=== PATIENT | female | born 1950 | race Caucasian/White ===

== ENCOUNTER → 2017-07-15 16:54 | Outpatient (CLI) | payer OTHER, SELFPAY ==
[2017-07-15 18:13] LABS: Absolute Lymphocyte Count 2.54 X10^3/ul (0.83-4.51); Absolute Neutrophil Count 3.5 X10^3/uL (2.0-7.7); Basophil# 0.04 X10^3/uL; Basophil% 0.6 % (0-1); Eosinophil# 0.17 X10^3/uL; Eosinophils% 2.4 % (0-5); Hematocrit 45.9 % (37-47); Hemoglobin 15.1 g/dl (12.0-15.0); Lymphocyte # 2.54 X10^3/ul (4.0); Lymphocyte % 35.7 % (19-41); Mean Corp Hgb Conc 32.9 g/gl (32-36); Mean Corpuscular Hgb 30.3 pg (27.0-32.0); Mean Corpuscular Volume 92.2 fL (81-99); Mean Platelet Vol. 9.7 fl (6.2-12.0); Monocyte# 0.82 X10^3/uL; Monocyte% 11.5 % (0-10); Neutrophil # 3.53 X10^3/uL (2.7-7.7); Neutrophil % 49.5 % (47-70); Platelet Count 295 K/mm3 (150-450); RBC Distribution Width CV 13.1 % (11.6-14.6); RBC Distribution Width SD 43.3 fl (35.1-43.9); Red Blood Count 4.98 M/mm3 (4.2-5.4); White Blood Count 7.1 K/mm3 (4.4-11.0)
[2017-07-15 18:19] LABS: POSITIVE COUNT NO; POSITIVE DIFFERENTIAL NO; POSITIVE MORPHOLOGY NO
[2017-07-15 18:30] LABS: Erythrocyte Sedimentation Rate 44 mm/hr (0-30)
[2017-07-15 19:53] LABS: ALB/GLOB Ratio 0.8 RATIO (0.9-2.4); AST(SGOT) 21 U/L (15-37); Alanine Aminotransfer ALT/SGPT 32 U/L (13-56); Albumin, Serum 3.4 g/dL (3.2-5.0); Alkaline Phosphatase 82 U/L (45-117); Anion Gap 10 (5-15); BUN 17 mg/dL (7-18); BUN/Creat Ratio 22.6 RATIO (10-20); Calcium,Total 8.9 mg/dL (8.5-10.1); Chloride 105 mmol/L (98-107); Creatinine, Serum 0.75 mg/dL (0.55-1.02); EST Glomerular Filtration Rate 82 mL/min (>60); Est Glom Filt Rate - Afr Amer 99 mL/min (>60); Globulin 4.3 g/dL (2.2-4.2); Glucose 70 mg/dL (74-106); Potassium 3.7 mmol/L (3.5-5.1); Protein, Total 7.7 g/dL (6.4-8.2); Sodium Level 141 mmol/L (136-145); Thyroid Stim Hormone (TSH) 5.05 uIU/mL (0.358-3.74)
[2017-07-16 08:14] LABS: Vitamin B12 293 pg/mL (211-911); Vitamin D,25 Hydroxy 22.5 ng/mL (29.95-100.01)
[2017-07-16 09:38] LABS: T4 Free Direct 0.96 ng/dL (0.76-1.46)
== END ==
PROVIDERS: Family Provider Family Medicine; PCP Family Medicine; Visit Provider Family Medicine
DX: R53.83 Other fatigue (principal)
CPT/HCPCS: 36415; 80053; 82306; 82607; 84439; 84443; 85025; 85652

== ENCOUNTER → 2017-08-29 16:21 | Outpatient (CLI) | payer OTHER, SELFPAY ==
[2017-08-29 17:43] LABS: T4 Free Direct 1.42 ng/dL (0.76-1.46); Thyroid Stim Hormone (TSH) 1.06 uIU/mL (0.358-3.74)
[2017-08-29 17:47] LABS: Vitamin B12 > 2000 pg/mL (211-911); Vitamin D,25 Hydroxy 35.4 ng/mL (29.95-100.01)
== END ==
LOC: MFPLAB 16:22
PROVIDERS: Family Provider Family Medicine; PCP Family Medicine; Visit Provider Family Medicine
DX: E53.8 Deficiency of other specified B group vitamins (principal); E55.9 Vitamin D deficiency, unspecified; E03.9 Hypothyroidism, unspecified
CPT/HCPCS: 36415; 82306; 82607; 84439; 84443

== ENCOUNTER → 2017-10-03 10:23 | Outpatient (CLI) | payer OTHER, SELFPAY ==
[2017-10-03 12:43] LABS: Anion Gap 5 (5-15); BUN 17 mg/dL (7-18); BUN/Creat Ratio 21.7 RATIO (10-20); Calcium,Total 9.1 mg/dL (8.5-10.1); Chloride 107 mmol/L (98-107); Creatinine, Serum 0.78 mg/dL (0.55-1.02); EST Glomerular Filtration Rate 78 mL/min (>60); Est Glom Filt Rate - Afr Amer 95 mL/min (>60); Glucose 68 mg/dL (74-106); Potassium 3.8 mmol/L (3.5-5.1); Sodium Level 141 mmol/L (136-145)
== END ==
PROVIDERS: Family Provider Family Medicine; PCP Family Medicine; Visit Provider Family Medicine
DX: R60.9 Edema, unspecified (principal)
CPT/HCPCS: 36415; 80048

== ENCOUNTER → 2017-10-17 07:23 | Outpatient (CLI) | payer OTHER, SELFPAY ==
--- NOTE | 2017-10-17 07:35 | ECHOD_ITS ---
Reason For Study: EDEMA Procedure This was a 2D Doppler, Color Flow transthoracic echocardiogram. Contrast injection was performed. Blood pressure called to RN at Dr Pinon's office. Exam performed in department. Left Ventricle Normal LV size. Left ventricular systolic function is normal. The estimated ejection fraction is 60 %. Transmitral diastolic flow velocities suggest mild (stage 1) diastolic dysfunction (reversed pattern). No regional wall motion abnormalities noted. Right Ventricle Normal RV size. Normal systolic function. Tricuspid Valve Normal tricuspid valve. Mild tricuspid valve insufficiency. Pulmonary artery systolic pressure is 23 mmHg. Aortic Valve Normal aortic valve. Pulmonic Valve Normal pulmonic valve. Great Vessels Normal aortic root. The pulmonary artery is normal size. Normal inferior vena cava. Pericardium/Pleural No pericardial effusion. Medication 22 gauge I.V. with prn adaptor inserted into left arm. Diluted definity 3ml given slow IV push to enhance endocardial definition. MMode/2D Measurements & Calculations LVIDd: 4.3 cm IVSd: 0.87 cm LVOT diam: 2.0 cm LVIDs: 3.0 cm LVPWd: 1.1 cm LVOT area: 3.0 cm2 RVDd: 3.3 cm FS: 30.1 % Ao root diam: 3.1 cm LAV(MOD-bp): 45.2 ml EDV(MOD-sp4): 91.2 ml LAV(MOD-bp) Indexed: 20.8 ml/m2 ESV(MOD-sp4): 35.6 ml LAV(MOD-sp2): 45.5 ml EF(MOD-sp4): 61.0 % LAV(MOD-sp4): 42.0 ml EDV(MOD-sp2): 78.3 ml SV(MOD-sp4): 55.7 ml SV(MOD-sp2): 57.2 ml EF(MOD-sp2): 73.0 % LA A4 area: 16.3 cm2 RA A4 area: 9.6 cm2 Time Measurements MV dec time: 0.22 sec Doppler Measurements & Calculations MV E max shyam: 83.0 cm/sec Lat Peak E' Shyam: 6.5 cm/sec Med Peak E' Shyam: 5.4 cm/sec MV A max shyam: 121.8 cm/sec E/E' lat: 12.7 E/E' med: 15.3 MV E/A: 0.68 MV V2 max: 127.3 cm/sec Ao V2 max: 122.3 cm/sec LV V1 max: 109.0 cm/sec MV max P.5 mmHg Ao max P.0 mmHg LV V1 max P.8 mmHg MV V2 mean: 63.9 cm/sec Ao V2 mean: 90.9 cm/sec LV V1 mean P.9 mmHg MV mean P.0 mmHg Ao mean P.6 mmHg LV V1 mean: 81.1 cm/sec MV V2 VTI: 29.8 cm Ao V2 VTI: 25.2 cm LV V1 VTI: 24.0 cm MVA(VTI): 2.5 cm2 THADDEUS(I,D): 2.9 cm2 THADDEUS(V,D): 2.7 cm2 SV(LVOT): 73.0 ml PA V2 max: 79.7 cm/sec PI end-d shyam: 113.8 cm/sec TR max shyam: 226.6 cm/sec TR max P.5 mmHg Interpretation Summary Normal LV size. Left ventricular systolic function is normal. The estimated ejection fraction is 60 %. Transmitral diastolic flow velocities suggest mild (stage 1) diastolic dysfunction (reversed pattern). Contrast injection was performed. Ordering Physician: Reg Pinon Referring Physician: JULI ROSAS Performed By: Jyothi Prakash RDCS, RVT
== END ==
PROVIDERS: Family Provider Family Medicine; PCP Family Medicine; Visit Provider Family Medicine
DX: R60.9 Edema, unspecified (principal)
CPT/HCPCS: 93306; Q9957; A4216; C8929

== ENCOUNTER → 2017-11-10 16:48 | Outpatient (CLI) | payer OTHER, MEDICARE, SELFPAY ==
--- NOTE | 2017-11-10 17:00 | RAD_ITS ---
STUDY: X-RAY - RIGHT ANKLE REASON FOR EXAM: Female, 66 years old. NO KNOWN RECENT INJURY. PAIN IN BOTH RIGHT FOOT AND RIGHT ANKLE. HX OF A RIGHT ANKLE FX WITH SURGERY 25 YRS AGO WITH PLATES AND SCREWS, THAN AGAIN 15 YRS AGO TO REMOVE PLATES AND A FEW SCREWS. SHE STATES ONE SCREW REMAINS. TECHNIQUE: 3 view(s) of the ankle. COMPARISON: None. FINDINGS: There is a screw in the distal fibular shaft. There is degenerative joint disease of the tibiotalar, subtalar, talonavicular, naviculocuneiform, calcaneocuboid joints. There are tiny plantar and posterior calcaneal spurs. There is diffuse osteopenia. RAD/Ankle min 3 Views IMPRESSION: Degenerative joint disease. Electronically Signed: Alice Cazares MD at 14:00 EDT , Service support ,
--- NOTE | 2017-11-10 17:00 | RAD_ITS ---
STUDY: X-RAY - RIGHT FOOT CLINICAL: Female, 66 years old. NO KNOWN RECENT INJURY. PAIN IN BOTH RIGHT FOOT AND RIGHT ANKLE. HX OF A RIGHT ANKLE FX WITH SURGERY 25 YRS AGO WITH PLATES AND SCREWS, THAN AGAIN 15 YRS AGO TO REMOVE PLATES AND A FEW SCREWS. SHE STATES ONE SCREW REMAINS. TECHNIQUE: 5 view(s) of the foot. COMPARISON: None. FINDINGS: There is a screw in the distal fibula. There is degenerative arthrosis of the tibiotalar, subtalar, talonavicular, naviculocuneiform calcaneocuboid joints. There is diffuse osteopenia. RAD/Foot min 3 Views IMPRESSION: Degenerative joint disease. Electronically Signed: Alice Cazares MD at 14:00 EDT , Service support ,
== END ==
PROVIDERS: Family Provider Family Medicine; PCP Family Medicine; Visit Provider Family Medicine
DX: M25.571 Pain in right ankle and joints of right foot (principal); M79.671 Pain in right foot
CPT/HCPCS: 73610; 73630

== ENCOUNTER → 2018-09-29 10:14 | Outpatient (CLI) | payer OTHER, MEDICARE, SELFPAY ==
[2018-09-29 13:01] LABS: Anion Gap 9 (5-15); BUN 14 mg/dL (7-18); Calcium,Total 9.3 mg/dL (8.5-10.1); Chloride 106 mmol/L (98-107); Cholesterol 177 mg/dL (200); Creatinine, Serum 0.78 mg/dL (0.55-1.02); EST Glomerular Filtration Rate 79 mL/min (>60); Est Glom Filt Rate - Afr Amer 95 mL/min (>60); Glucose 82 mg/dL (74-106); High Density Lipoprotein 42 mg/dL; Sodium Level 142 mmol/L (136-145); Thyroid Stim Hormone (TSH) 0.64 uIU/mL (0.358-3.74); Triglycerides 153 mg/dL; Very Low Density Lipoprotein 31 mg/dL (5-40)
== END ==
PROVIDERS: Family Provider Family Medicine; PCP Family Medicine; Visit Provider Family Medicine
DX: E03.9 Hypothyroidism, unspecified (principal); Z13.220 Encounter for screening for lipoid disorders; Z13.1 Encounter for screening for diabetes mellitus
CPT/HCPCS: 36415; 80048; 80061; 84443

== ENCOUNTER → 2019-04-03 10:18 | Outpatient (CLI) | payer OTHER, SELFPAY ==
[2019-04-03 11:13] LABS: Anion Gap 5 (5-15); BUN 17 mg/dL (7-18); BUN/Creat Ratio 18.2 RATIO (10-20); Calcium,Total 9.5 mg/dL (8.5-10.1); Chloride 107 mmol/L (98-107); Cholesterol 216 mg/dL (200); Creatinine, Serum 0.94 mg/dL (0.55-1.02); EST Glomerular Filtration Rate 63 mL/min (>60); Est Glom Filt Rate - Afr Amer 77 mL/min (>60); Glucose 92 mg/dL (74-106); High Density Lipoprotein 58 mg/dL; Potassium 4.2 mmol/L (3.5-5.1); Sodium Level 141 mmol/L (136-145); Thyroid Stim Hormone (TSH) 1.75 uIU/mL (0.358-3.74); Triglycerides 201 mg/dL; Very Low Density Lipoprotein 40 mg/dL (5-40)
[2019-04-05 09:04] LABS: Vitamin B12 284 pg/mL (211-911); Vitamin D,25 Hydroxy 19.8 ng/mL (29.95-100.01)
== END ==
PROVIDERS: Family Provider Family Medicine; PCP Family Medicine; Referring Provider Family Medicine; Visit Provider Family Medicine
DX: I10 Essential (primary) hypertension (principal); E03.9 Hypothyroidism, unspecified; E53.8 Deficiency of other specified B group vitamins; E55.9 Vitamin D deficiency, unspecified
CPT/HCPCS: 36415; 80048; 80061; 82306; 82607; 84443

== ENCOUNTER → 2019-10-16 | Outpatient (CLI) | payer OTHER, SELFPAY ==
[2019-10-18 08:58] LABS: Vitamin B12 > 2000 pg/mL (211-911); Vitamin D,25 Hydroxy 91.3 ng/mL
== END | disposition home or self-care (01) ==
PROVIDERS: PCP Family Medicine; Referring Provider Family Medicine; Visit Provider Family Medicine
DX: E55.9 Vitamin D deficiency, unspecified (principal); E53.8 Deficiency of other specified B group vitamins
CPT/HCPCS: 36415; 82306; 82607

== ENCOUNTER → 2020-04-05 16:35 | Outpatient (CLI) | payer OTHER, SELFPAY ==
[2020-04-05 18:35] LABS: Vitamin B12 596 pg/mL (211-911); Vitamin D,25 Hydroxy 36.2 ng/mL
[2020-04-05 18:44] LABS: ALB/GLOB Ratio 0.9 RATIO (0.9-2.4); AST(SGOT) 12 U/L (15-37); Alanine Aminotransfer ALT/SGPT 29 U/L (13-56); Albumin, Serum 3.5 g/dL (3.2-5.0); Alkaline Phosphatase 68 U/L (45-117); Anion Gap 4 (5-15); BUN 21 mg/dL (7-18); BUN/Creat Ratio 23.7 RATIO (10-20); Calcium,Total 9.6 mg/dL (8.5-10.1); Chloride 106 mmol/L (98-107); Cholesterol 215 mg/dL (200); Creatinine, Serum 0.88 mg/dL (0.55-1.02); EST Glomerular Filtration Rate 67 mL/min (>60); Est Glom Filt Rate - Afr Amer 82 mL/min (>60); Globulin 4.1 g/dL (2.2-4.2); Glucose 68 mg/dL (74-106); High Density Lipoprotein 50 mg/dL; Potassium 3.7 mmol/L (3.5-5.1); Protein, Total 7.6 g/dL (6.4-8.2); Sodium Level 140 mmol/L (136-145); Thyroid Stim Hormone (TSH) 2.55 uIU/mL (0.358-3.74); Triglycerides 228 mg/dL; Very Low Density Lipoprotein 46 mg/dL (5-40)
== END ==
PROVIDERS: PCP Family Medicine; Visit Provider Family Medicine
DX: E03.9 Hypothyroidism, unspecified (principal); I10 Essential (primary) hypertension; E55.9 Vitamin D deficiency, unspecified; E53.8 Deficiency of other specified B group vitamins
CPT/HCPCS: 36415; 80053; 80061; 82306; 82607; 84443

== ENCOUNTER → 2021-01-02 14:53 | Outpatient (CLI) | payer OTHER, SELFPAY | PROVIDERS: PCP Family Medicine; Referring Provider Family Medicine; Visit Provider Family Medicine | DX: R69 Illness, unspecified (principal) ==

== ENCOUNTER → 2021-01-18 07:02 | Outpatient (CLI) | payer OTHER, SELFPAY ==
[2021-01-18 10:56] LABS: Vitamin B12 1054 pg/mL (211-911); Vitamin D,25 Hydroxy 97.7 ng/mL
[2021-01-18 11:23] LABS: Anion Gap 7 (5-15); BUN 18 mg/dL (7-18); BUN/Creat Ratio 20.5 RATIO (10-20); Calcium,Total 9.4 mg/dL (8.5-10.1); Chloride 105 mmol/L (98-107); Cholesterol 203 mg/dL (200); Creatinine, Serum 0.88 mg/dL (0.55-1.02); EST Glomerular Filtration Rate 68 mL/min (>60); Est Glom Filt Rate - Afr Amer 82 mL/min (>60); Glucose 100 mg/dL (74-106); High Density Lipoprotein 52 mg/dL; Potassium 4.1 mmol/L (3.5-5.1); Sodium Level 141 mmol/L (136-145); T4 Free Direct 1.11 ng/dL (0.76-1.46); Thyroid Stim Hormone (TSH) 2.29 uIU/mL (0.358-3.74); Triglycerides 150 mg/dL; Very Low Density Lipoprotein 30 mg/dL (5-40)
== END ==
PROVIDERS: PCP Family Medicine; Referring Provider Family Medicine; Visit Provider Family Medicine
DX: E53.8 Deficiency of other specified B group vitamins (principal); I10 Essential (primary) hypertension; E03.9 Hypothyroidism, unspecified; E55.9 Vitamin D deficiency, unspecified
CPT/HCPCS: 36415; 80048; 80061; 82306; 82607; 84439; 84443

== ENCOUNTER → 2021-02-06 | Outpatient (CLI) | payer OTHER, SELFPAY | END | disposition home or self-care (01) | LOC: LABSPEC 02-07 09:42 | PROVIDERS: PCP Family Medicine; Visit Provider Family Medicine | DX: U07.1 COVID-19 (principal) | CPT/HCPCS: 87635; U0005; U0003 ==

== ENCOUNTER 2021-02-08 14:42 | Outpatient (CLI) | payer OTHER, SELFPAY ==
[2021-02-08 15:42] VITALS: BP 120/77; PULSE 91; RESP 16; TEMP 36.8; O2SAT 98; BMI 39.4
[2021-02-08] MEDS: 0.9% Saline Lock 10 ML Syringe IV (15:52)
[2021-02-08 17:03] VITALS: BP 143/75; PULSE 86; RESP 16; TEMP 37.4; O2SAT 96
[2021-02-08 18:00] VITALS: BP 144/77; PULSE 88; RESP 16; TEMP 37.3; O2SAT 98
== END 2021-02-08 18:00 | disposition home or self-care (01) ==
LOC: MS3OUT 14:42 → MS3 14:43
PROVIDERS: PCP Family Medicine; Referring Provider Nurse Practitioner Adult Health; Visit Provider Nurse Practitioner Adult Health
DX: Z23 Encounter for immunization (principal); U07.1 COVID-19
CPT/HCPCS: J7050; M0245; Q0245; A4216

== ENCOUNTER → 2021-10-09 | Outpatient (CLI) | payer OTHER, SELFPAY ==
[2021-10-09 10:22] LABS: ALB/GLOB Ratio 0.7 RATIO (0.9-2.4); AST(SGOT) 20 U/L (15-37); Alanine Aminotransfer ALT/SGPT 34 U/L (13-56); Albumin, Serum 3.2 g/dL (3.2-5.0); Alkaline Phosphatase 64 U/L (45-117); Anion Gap 6 (5-15); BUN 16 mg/dL (7-18); BUN/Creat Ratio 18.5 RATIO (10-20); Calcium,Total 9.2 mg/dL (8.5-10.1); Chloride 107 mmol/L (98-107); Cholesterol 213 mg/dL (200); Creatinine, Serum 0.86 mg/dL (0.55-1.02); EST Glomerular Filtration Rate 69 mL/min (>60); Est Glom Filt Rate - Afr Amer 84 mL/min (>60); Globulin 4.3 g/dL (2.2-4.2); Glucose 116 mg/dL (74-106); High Density Lipoprotein 46 mg/dL; Protein, Total 7.5 g/dL (6.4-8.2); Sodium Level 140 mmol/L (136-145); T4 Free Direct 1.26 ng/dL (0.76-1.46); Thyroid Stim Hormone (TSH) 1.17 uIU/mL (0.358-3.74); Triglycerides 188 mg/dL; Very Low Density Lipoprotein 38 mg/dL (5-40)
== END | disposition home or self-care (01) ==
LOC: MFPLAB 08:51
PROVIDERS: PCP Family Medicine; Visit Provider Family Medicine
DX: Z00.00 Encounter for general adult medical examination without abnormal findings (principal)
CPT/HCPCS: 36415; 80053; 80061; 84439; 84443

== ENCOUNTER → 2021-10-17 | Outpatient (CLI) | payer OTHER, SELFPAY ==
[2021-10-17 12:52] LABS: Vitamin B12 479 pg/mL (211-911); Vitamin D,25 Hydroxy 38.5 ng/mL
== END | disposition home or self-care (01) ==
LOC: MFPLAB 10:18
PROVIDERS: Nurse Practitioner Family; PCP Family Medicine; Referring Provider Family Medicine; Visit Provider Family Medicine
DX: E55.9 Vitamin D deficiency, unspecified (principal); E53.8 Deficiency of other specified B group vitamins
CPT/HCPCS: 36415; 82306; 82607

== ENCOUNTER → 2022-02-11 | Outpatient (CLI) | payer OTHER, SELFPAY ==
--- NOTE | 2022-02-11 11:47 | RAD_ITS ---
STUDY: X-RAY - PELVIS AND RIGHT HIP REASON FOR EXAM: Female, 71 years old. PAIN TECHNIQUE: XR Hip Unilateral with Pelvis when performed; 2-3 Views COMPARISON: None. FINDINGS: There is a non-specific bowel gas pattern. Normal visualized soft tissue structures. There are degenerative changes of the lumbar spine. Normal bilateral iliac wings, sacroiliac joints and visualized sacrum. Normal bilateral superior and inferior pubic rami. Normal pubic symphysis. Normal bilateral ischial tuberosities. Normal visualized femoral head. Normal acetabulum. Normal hip joint. RAD/HIP, UNI W/ Pelvis 2-3 Views IMPRESSION: No acute findings. Electronically Signed: Rafi Jaimes MD at 15:03 EST ,
== END | disposition home or self-care (01) ==
PROVIDERS: PCP Family Medicine; Referring Provider Family Medicine; Visit Provider Family Medicine
DX: M25.551 Pain in right hip (principal)
CPT/HCPCS: 73502

== ENCOUNTER → 2022-04-23 | Outpatient (CLI) | payer OTHER, SELFPAY ==
[2022-04-23 18:44] LABS: Anion Gap 10 (5-15); BUN 21 mg/dL (7-18); BUN/Creat Ratio 22.8 RATIO (10-20); Calcium,Total 9.2 mg/dL (8.5-10.1); Chloride 106 mmol/L (98-107); Creatinine, Serum 0.92 mg/dL (0.55-1.02); EST Glomerular Filtration Rate 64 mL/min (>60); Est Glom Filt Rate - Afr Amer 77 mL/min (>60); Glucose 218 mg/dL (74-106); Potassium 3.8 mmol/L (3.5-5.1); Sodium Level 142 mmol/L (136-145)
[2022-04-23 18:51] LABS: Vitamin B12 502 pg/mL (211-911); Vitamin D,25 Hydroxy 32.8 ng/mL
== END | disposition home or self-care (01) ==
LOC: MFPLAB 14:00
PROVIDERS: PCP Family Medicine; Visit Provider Family Medicine
DX: I10 Essential (primary) hypertension (principal); E53.8 Deficiency of other specified B group vitamins; E55.9 Vitamin D deficiency, unspecified
CPT/HCPCS: 36415; 80048; 82306; 82607

== ENCOUNTER 2022-09-19 20:37 | Emergency (ER) | payer OTHER, SELFPAY ==
[2022-09-19 20:38] VITALS: BP 204/104; PULSE 98; RESP 18; TEMP 36.8; O2SAT 96; BMI 45.3
[2022-09-19 20:41] VITALS: BP 188/89; PULSE 99; RESP 16; O2SAT 96
--- NOTE | 2022-09-19 21:03 | EDS_ITS ---
HPI History of Present Illness Chief Complaint: Lower Extremity Injury Informant: patient Narrative Narrative: Patient presents by EMS because of severe cramps in both calves, worse on the right, started suddenly when she went to stand from a sitting position at home on her couch. She has had muscle cramps before but this was much worse, and she states the pain was severe and family was so scared that they called EMS to transport her here because she was afraid she could not walk. Patient denies any changes in her medications recently. She is on the diuretic, her blood pressure medication is losartan/HCTZ. She denies any recent illness or cwyb-whj-dwmpodp medications. She presents late in the evening, and states that she had 3 to 4 cups of coffee today, and very little else to drink, but has no other reason to be dehydrated. [facility] Medical History (Updated 09/19/22 @ 22:[address] Rohit Dempsey MD) Lower extremity pain Home Medications levothyroxine 100 mcg capsule 100 mcg PO DAILY 02/08/21 [History Last Taken Unknown] losartan 50 mg-hydrochlorothiazide 12.5 mg tablet 1 tab PO DAILY 02/08/21 [History Last Taken Unknown] tramadol 50 mg tablet 50 mg PO Q6H PRN pain 2 days #8 tabs 09/19/22 [Rx Last Taken Unknown] Allergy/AdvReac Type Severity Reaction Status Date / Time Sulfa (Sulfonamide Allergy unknown Verified 09/19/22 20:38 Antibiotics) Social History Smoking Status: Never smoker ROS ROS ED Constitutional Constitutional ED: Denies chills or fever(s) Musculoskeletal Musculoskeletal: Reports extremity pain; Denies neck pain Integumentary Denies Abrasions, rash or wounds Neurologic Neurologic: Denies paresthesias or weakness EXAM Physical Exam Const Vital Signs: 09/19/22 20:38 09/19/22 20:41 09/19/22 21:10 Temperature 98.2 F Temperature Source Temporal Pulse Rate 98 99 100 Respiratory Rate 18 16 18 Blood Pressure 204/104 H 188/89 H 146/71 H Blood Pressure Mean 137 122 96 Pulse Ox 96 96 95 Oxygen Delivery Method Room Air Room Air Room Air Positive well nourished and well developed General Appearance ED: well developed and NAD Neck full ROM and supple Back/Spine normal ROM and normal to inspection Extremity normal to inspection and full ROM Extremity Narrative: Mild bilateral soleus and calf tenderness without palpable cord, edema, cellulitis, skin lesion, or other areas of tenderness. All compartments soft and nondistended. Neuro oriented x3, no focal motor deficits and no sensory deficits noted Sensorium / Orientation: alert Psych mental status grossly normal and thought process normal Skin no wounds Rashes: no rashes MDM MDM MDM Narrative Medical decision making narrative: Obtained a set of electrolytes as well as a CPK. They do show prerenal azotemia. While waiting for this she was given 500 cc of IV fluids considering mild dehydration the likely cause, she was improved on reevaluation, and able to walk without difficulty. Of note her blood pressure was 204/104 when she got here and initially I ordered her a dose of hydralazine but without giving it, she came down to 146/71 and it was held and canceled. She and I both suspect she had high blood pressure at the time because she was in pain and a little anxious upon getting here. Advised to stay hydrated and follow-up with her doc tor as needed. Prescribe her some tramadol to use as needed. History & Record Review Additional record(s) reviewed:: Prior labs Lab Data Attestation: I reviewed the patient's lab results. Labs: Laboratory Results - last 24 hr 09/19/22 21:05 Sodium 138 Potassium 3.7 Chloride 105 Carbon Dioxide 27.0 Anion Gap 6 BUN 22 H Creatinine 0.95 Estim Creat Clear Calc 47.58 Est GFR (MDRD) Af Amer 74 Est GFR (MDRD) Non-Af 61 BUN/Creatinine Ratio 23.1 H Glucose 128 H Calcium 9.1 Total Creatine Kinase 63 Discharge Plan Triage Chief Complaint: Lower Extremity Injury ED Provider: Rohit Dempsey Dx/Rx/DC Orders Clinical Impression: Bilateral leg cramps, Mild dehydration Instructions: Muscle Spasm Prescriptions: New tramadol 50 mg tablet 50 mg PO Q6H PRN (Reason: pain) 2 Days Qty: 8 0RF No Action losartan-hydrochlorothiazide 50-12.5 mg Tablet 1 tab PO DAILY levothyroxine 100 mcg Capsule 100 mcg PO DAILY Primary Care Provider: John Barboza Referrals: John Barboza MD [Primary Care Provider] - 3-5 Days if not improving Disposition Disposition: Home, Self Care
[2022-09-19 21:10] VITALS: BP 146/71; PULSE 100; RESP 18; O2SAT 95
[2022-09-19 21:37] LABS: Anion Gap 6 (5-15); BUN 22 mg/dL (7-18); BUN/Creat Ratio 23.1 RATIO (10-20); CPK Total, Creatine Kinase 63 U/L (26-192); Calcium,Total 9.1 mg/dL (8.5-10.1); Chloride 105 mmol/L (98-107); Creatinine, Serum 0.95 mg/dL (0.55-1.02); EST Glomerular Filtration Rate 61 mL/min (>60); Est Glom Filt Rate - Afr Amer 74 mL/min (>60); Estimated Creatinine Clearance 47.58 ml/min; Glucose 128 mg/dL (74-106); Potassium 3.7 mmol/L (3.5-5.1); Sodium Level 138 mmol/L (136-145)
== END 2022-09-19 22:56 | disposition home or self-care (01) ==
PROVIDERS: Emergency Provider Emergency Medicine; PCP Family Medicine; Visit Provider Emergency Medicine
DX: E86.0 Dehydration (principal); R25.2 Cramp and spasm; Z79.899 Other long term (current) drug therapy
CPT/HCPCS: 80048; 82550; 96360; 99285

== ENCOUNTER → 2022-10-07 | Outpatient (CLI) | payer OTHER, SELFPAY ==
[2022-10-07 13:20] LABS: Anion Gap 7 (5-15); BUN 18 mg/dL (7-18); BUN/Creat Ratio 18.6 RATIO (10-20); Calcium,Total 10.1 mg/dL (8.5-10.1); Chloride 104 mmol/L (98-107); Creatinine, Serum 0.97 mg/dL (0.55-1.02); EST Glomerular Filtration Rate 60 mL/min (>60); Est Glom Filt Rate - Afr Amer 73 mL/min (>60); Glucose 81 mg/dL (74-106); Potassium 4.1 mmol/L (3.5-5.1); Sodium Level 138 mmol/L (136-145); Thyroid Stim Hormone (TSH) 1.55 uIU/mL (0.358-3.74)
== END | disposition home or self-care (01) ==
LOC: MFPLAB 09:47
PROVIDERS: PCP Family Medicine; Visit Provider Family Medicine
DX: R25.2 Cramp and spasm (principal); E03.9 Hypothyroidism, unspecified
CPT/HCPCS: 36415; 80048; 84443

== ENCOUNTER 2022-10-15 11:32 | Emergency (ER) | payer OTHER, SELFPAY ==
[2022-10-15 11:34] VITALS: BP 151/106; PULSE 86; RESP 16; TEMP 36.4; O2SAT 93; BMI 46.7
--- NOTE | 2022-10-15 11:45 | EKG12_ITS ---
Test Reason : DIZZY Blood Pressure : / mmHG Vent. Rate : 082 BPM Atrial Rate : 082 BPM P-R Int : 138 ms QRS Dur : 132 ms QT Int : 414 ms P-R-T Axes : 033 -14 -05 degrees QTc Int : 483 ms Normal sinus rhythm Right bundle branch block Abnormal ECG Confirmed by CALIN SMART, CADENCE ([id number]), news copy editor CASSIE ALMANZAR ([id number]) on 10/16/2022 10:22:49 AM Referred By: Confirmed By:CADENCE LAYTON MD
--- NOTE | 2022-10-15 11:59 | EX.ED.DYSGE1 ---
HPI History of Present Illness Chief Complaint: Dizziness [facility] Medical History (Updated 10/15/22 @ 14:[address] Christiano De La Vega, DO) Lower extremity pain Home Medications levothyroxine 100 mcg capsule 100 mcg PO DAILY 02/08/21 [History Last Taken Unknown] losartan 50 mg-hydrochlorothiazide 12.5 mg tablet 1 tab PO DAILY 02/08/21 [History Last Taken Unknown] tramadol 50 mg tablet 50 mg PO Q6H PRN pain 2 days #8 tabs 09/19/22 [Rx Last Taken Unknown] Allergy/AdvReac Type Severity Reaction Status Date / Time Sulfa (Sulfonamide Allergy unknown Verified 09/19/22 20:38 Antibiotics) Social History Smoking Status: Never smoker EXAM Physical Exam Const Vital Signs: 10/15/22 11:34 10/15/22 11:42 10/15/22 14:07 Temperature 97.6 F L Temperature Source Oral Pulse Rate 86 98 Respiratory Rate 16 16 Respiratory Pattern Normal Blood Pressure 151/106 H 144/93 H Blood Pressure Mean 121 110 Pulse Ox 93 Oxygen Delivery Method Room Air Room Air MDM MDM MDM Narrative Medical decision making narrative: HISTORY OF PRESENT ILLNESS: 71-year-old female endorses acute onset of dizziness after ambulating to the bathroom she notes associated shortness of breath arm pain and neck pain that started and then subsequently resolved. She states recently has been more lightheaded. Symptoms are intermittent. No symptoms currently. States she saw her PCP yesterday and he ordered a stress test to further work-up intermittent lightheadedness and associated fatigue. She also endorses shortness of breath. Denies any chest pain or exertional symptoms. The patient denies recent surgery in the last 4 weeks or immobilization in the last 3 days, denies previous diagnosis of DVT or PE, hemoptysis, unilateral leg swelling or malignancy with treatment the last 6 months. No estrogen use noted. Denies any focal neurologic deficits at this time. No history of aneurysms. REVIEW OF SYSTEMS: Pertinent positives: Dizziness, neck and arm pain Pertinent negatives: Chest pain, focal weakness, syncope PHYSICAL EXAM: Nursing triage notes reviewed, Vital signs reviewed Constitutional: please see mdm HENT: MMM Eyes: Pupils equal round and reactive to light, Extraocular muscles intact Neck: No stridor, no JVD, full neck ROM Lungs: Clear to auscultation, No wheezing or rales. No increased work of breathing, no conversational dyspnea, no accessory muscle use, no nasal flaring. No respiratory distress noted Heart: Regular rate and rhythm, No murmurs, No rubs and No gallops, 2+ distal pulses (radial, femoral, posterior tibial) in all extremities Abdomen: Soft, there is no tenderness, rigidity, rebound or guarding, no obvious peritoneal signs, no palpable pulsatile abdominal masses, no auscultated abdominal bruit : No CVAT Extremities: No edema Neuro: Alert and oriented x3, neuro exam at baseline, cranial nerves II through XII are intact. No pain with extraocular muscle movement. There is negative test of skew. Normal speech. 5 of 5 strength in upper and lower extremities in flexion extension. Intact sensation to light touch in upper and lower extremity dermatomes. No truncal or extremity ataxia. No dysdiadochokinesia. 2+ reflexes. No meningeal signs. Negative Babinski. NIH of 0 Skin: No rash or lesions noted MEDICAL DECISION MAKING: Chief Complaint: Dizziness External records reviewed: Echocardiogram 2018 shows ejection fraction of 60% Factors affecting care: n hypothyroidism, hypertension Social determinants of health: Elderly History obtained from others: The patient significant other Consults: none ALL IMAGES (IF OBTAINED) HAVE BEEN PERSONALLY REVIEWED AND INTERPRETED BY MYSELF. EKG with normal sinus rhythm, normal axis, right bundle branch block, no obvious STEMI no prior EKG for comparison CBC without leukocytosis, severe anemia, no thrombocytopenia. BMP without evidence of significant electrolyte abnormalities, no anion gap, no acute kidney injury. Troponin is negative, no evidence of myocardial ischemia BNP within normal limits suggestive of no increased transmural pressure, ventricular stretch or heart failure Urinalysis shows no evidence of urinary inflammation suggestive of UTI MDM Narrative: The patient was initially hemodynamically stable, afebrile, nontoxic-appearing. No focal neurologic deficits on my initial exam. I considered the following differential diagnosis: ICH, carotid artery dissection, large vessel occlusion, CHF, anemia, myocardial schema, arrhythmia, dehydration, electrolyte abnormality, I obtained a broad lab and imaging work-up to further elucidate the etiology the patient complaints. I obtained a CT to rule out bleeding or mass. CTA of the head and neck to rule out carotid artery dissection or large vessel occlusion. Also obtained a chest x-ray basic labs as well as troponin to rule out the other differentials. Labs and images were remarkable for no evidence of large vessel occlusion, mass, ICH. No evidence of pulmonary edema, significant BNP elevation to suggest CHF, no evidence of myocardial ischemia, arrhythmia anemia or significant electrolyte abnormalities. Patient's gait was stable after treatments. She is appropriate discharge home. I completed a structured, evidence-based clinical evaluation to screen for acute stroke and neurologic deficits in this patient. The patient has a normal detailed neurologic exam, which is highly sensitive for dangerous causes of dizziness, vertigo, or loss of balance. The evidence indicates that the patient is very low risk for an acute neurologic emergency and this is consistent with my clinical intuition. The risk of further workup or hospitalization is likely higher than the risk of the patient having a stroke or other dangerous neurologic condition. It is, therefore, in the patient?s best interest not to do additional emergent testing or to be hospitalized at this time. Shared Decision-Making I have discussed with the patient my clinical impression and the result of an evidence-based clinical evaluation to screen for stroke, as well as the risk of further testing and hospitalization. The evidence shows that the risk for stroke is less than 1%. Although the risk of stroke has not been completely eliminated, the risks of further testing or hospitalization likely exceed any potential benefit, and the patient agrees with not pursuing further emergent evaluation or hospitalization for stroke evaluation at this time. The patient and/or family, caregivers express understanding. The patient and/or family, caregivers agrees with the plan. Total critical care time today provided was at least 0 minutes. This excludes separately billable procedures. Critical care time (if documented) is secondary to the patient having high probability of clinically significant/life threatening deterioration in the patient's condition which required my urgent intervention. Shared decision making: I will have a discussion with the patient and or visitors regarding risk/benefits of further testing or admission. They will be made aware of of the risk/benefits inherent in this decision they will be given the opportunity to voice understanding. Lab Data Attestation: I reviewed the patient's lab results. Labs: Laboratory Results - last 24 hr 10/15/22 10/15/22 12:27 14:04 WBC 8.3 RBC 4.50 Hgb 13.8 Hct 42.3 MCV 94.0 MCH 30.7 MCHC 32.6 RDW Std Deviation 43.9 RDW Coeff of [place] 12.7 Plt Count 288 MPV 9.1 Immature Gran % (Auto) 0.500 Neut % (Auto) 61.9 Lymph % (Auto) 21.8 [place] % (Auto) 13.5 H Eos % (Auto) 1.6 Baso % (Auto) 0.7 Absolute Neuts (auto) 5.1 Absolute Lymphs (auto) 1.80 Nucleated RBC % 0 Sodium 138 Potassium 3.7 Chloride 105 Carbon Dioxide 28.0 Anion Gap 5 BUN 18 Creatinine 0.93 Estim Creat Clear Calc 46.56 Est GFR (MDRD) Af Amer 77 Est GFR (MDRD) Non-Af 63 BUN/Creatinine Ratio 19.4 Glucose 84 Calcium 9.3 Troponin I High Sens 4 B-Natriuretic Peptide 26.7 TSH 1.29 Free T4 1.36 Urine Color Yellow Urine Clarity Clear Urine pH 7.0 Ur Specific [place] 1.005 Urine Protein Negative Urine Glucose (UA) Normal Urine Ketones Negative Urine Occult Blood Negative Urine Nitrite Negative Urine Bilirubin Negative Urine Urobilinogen Normal Ur Leukocyte Esterase Negative Radiography Chest X-Ray - ED: Read by ED Physician Diagnostic Testing: Clinical Impression(s) from Imaging Studies Chest X-Ray 10/15/22 12:50 IMPRESSION: Mild cardiomegaly. Electronically Signed: Leobardo Lutz MD at 12:58 EDT , Head/Neck CTA 10/15/22 12:53 IMPRESSION: Calcific plaque at the origin of the left internal carotid artery causing less than 50% stenosis. N.B. : The above Results were Read Back by Leobardo Lutz MD to Dr Ceferino DO, and understanding confirmed on 10/15/2022 13:14:17 (ET). Electronically Signed: Leobardo Lutz MD at 13:16 EDT , ADDENDUM: 10/15/22 1322 IMPRESSION: Calcific plaque at the origin of the left internal carotid artery causing less than 50% stenosis. N.B. : The above Results were Read Back by Leobardo Lutz MD to Dr Ceferino DO, and understanding confirmed on 10/15/2022 13:14:17 (ET). Electronically Signed: Leobardo Lutz MD at 13:16 EDT , I have personally reviewed the patient's chest x-ray. Chest x-ray is unremarkable for pulmonary edema, pneumothorax, pneumonia or focal cardiopulmonary abnormality. Discharge Plan Triage Chief Complaint: Dizziness ED Provider: Christiano De La Vega Dx/Rx/DC Orders Clinical Impression: Fatigue, Dizziness Instructions: ED Dizziness, Uncertain Cause Prescriptions: No Action losartan-hydrochlorothiazide 50-12.5 mg Tablet 1 tab PO DAILY levothyroxine 100 mcg Capsule 100 mcg PO DAILY tramadol 50 mg tablet 50 mg PO Q6H PRN (Reason: pain) 2 Days Qty: 8 0RF Primary Care Provider: John Barboza Referrals: John Barboza MD [Primary Care Provider] - Activity Restrictions/Additional Instructions: Thank you for trusting us with your care today! Please take Tylenol (2 pills, 650 mg), ibuprofen (2 pills, 400 mg) every 6 hours as needed for pain and fever control. Please return to the emergency department if your symptoms change or worsen. Please follow with your primary care physician for further outpatient evaluation and management. Disposition Disposition: Home, Self Care
[2022-10-15] MEDS: Contrast Allergy Safety Check IV (12:29)
[2022-10-15 12:36] LABS: Absolute Neutrophil Count 5.1 X10^3/uL (2.0-7.7); Basophil# 0.06 X10^3/uL; Basophil% 0.7 % (0-1); Eosinophil# 0.13 X10^3/uL; Eosinophils% 1.6 % (0-5); Hematocrit 42.3 % (37-47); Hemoglobin 13.8 g/dL (12.0-15.0); Lymphocyte % 21.8 % (19-41); Mean Corp Hgb Conc 32.6 g/dL (32-36); Mean Corpuscular Hgb 30.7 pg (27.0-32.0); Mean Platelet Vol. 9.1 fl (6.2-12.0); Monocyte# 1.11 X10^3/uL; Monocyte% 13.5 % (0-10); NRBC Flagged by Analyzer 0 % (0-5); Neutrophil # 5.11 X10^3/uL (2.7-7.7); Neutrophil % 61.9 % (47-70); Platelet Count 288 K/mm3 (150-450); RBC Distribution Width CV 12.7 % (11.6-14.6); RBC Distribution Width SD 43.9 fl (35.1-43.9); White Blood Count 8.3 K/mm3 (4.4-11.0)
--- NOTE | 2022-10-15 12:50 | RAD_ITS ---
STUDY: X-RAY CHEST REASON FOR EXAM: Female, 71 years old. SOB and dizziness. TECHNIQUE: Single AP portable view of the chest. COMPARISON: None. FINDINGS: EKG electrodes are seen. The lungs are clear and expanded. There is no demonstrated pleural abnormality. There is mild cardiac enlargement. Normal mediastinum and regi. Normal visualized pulmonary arteries. There is atherosclerotic tortuosity of the aortic arch and descending thoracic aorta. Normal visualized thoracic spine. Normal visualized ribs, clavicles, and shoulders. There is no demonstrated abnormality of the visualized soft tissue structures of the upper abdomen. RAD/Chest 1 View (Portable) IMPRESSION: Mild cardiomegaly. Electronically Signed: Leobardo Lutz MD at 12:58 EDT ,
[2022-10-15 12:51] LABS: Anion Gap 5 (5-15); BUN 18 mg/dL (7-18); BUN/Creat Ratio 19.4 RATIO (10-20); Calcium,Total 9.3 mg/dL (8.5-10.1); Chloride 105 mmol/L (98-107); Creatinine, Serum 0.93 mg/dL (0.55-1.02); EST Glomerular Filtration Rate 63 mL/min (>60); Est Glom Filt Rate - Afr Amer 77 mL/min (>60); Estimated Creatinine Clearance 46.56 ml/min; Glucose 84 mg/dL (74-106); Potassium 3.7 mmol/L (3.5-5.1); Sodium Level 138 mmol/L (136-145); Troponin-I HS 4 pg/mL (3.0-54.0)
--- NOTE | 2022-10-15 12:53 | CT_ITS ---
STUDY: CTA HEAD AND NECK WITH CONTRAST REASON FOR EXAM: Female, 71 years old. DIZZY AND NECK PAIN RADIATION DOSAGE (If Supplied By Facility): CTDIvol = ( 31.74 ) mGy, DLP = ( 1544.17 ) mGycm TECHNIQUE: CT angiography was performed with a multi-detector CT scanner. Data acquisition was obtained from the skull base through the vertex following intravenous administration of IV 100mL [id number]-[id number]. MIP images were reconstructed from the axial data set. Post-processing of the angiographic images was performed, with multiplanar reformation and 3D reconstruction. Individualized dose optimization techniques were used for this CT. COMPARISON: No relevant priors. FINDINGS: Normal bilateral petrous carotid arteries. There is calcified plaque formation of the right cavernous carotid artery, without a cross-sectional luminal stenosis. There is calcified plaque formation of the left cavernous carotid artery, without a cross-sectional luminal stenosis. Normal right A1 segments of the anterior cerebral artery. Normal left A1 segments of the anterior cerebral artery. Normal intact anterior communicating artery (ACOM). Normal bilateral A2 segments of the anterior cerebral arteries. Normal right M1 and M2 segments of the middle cerebral arteries, with a normal M1 bifurcation. Normal left M1 and M2 segments of the middle cerebral arteries, with a normal M1 bifurcation. Normal right posterior communicating artery (PCOM). Normal left posterior communicating artery (PCOM). Normal bilateral vertebral arteries. Normal basilar artery with a normal basilar bifurcation. The visualized bilateral superior cerebellar (SCA) arteries are normal. Normal bilateral P1, P2 and visualized P3 segments of the posterior cerebral arteries. There is no demonstrated aneurysm of the [place]. Mild degree of cerebral atrophy. No evidence of intracranial hemorrhage. AORTIC ARCH: There is atherosclerotic calcific plaque formation of the aortic arch and great vessels arising from the aortic arch, without a hemodynamically significant stenosis. There is a normal origin of the brachiocephalic, left common carotid, and left subclavian arteries. RIGHT CAROTID ARTERIES: Normal right common carotid artery (CCA). Normal right common carotid bulb. Normal origin of the right internal carotid (ICA) artery without a hemodynamically significant stenosis. Normal visualized cervical portion of the right internal carotid artery. Normal origin of the right external carotid artery (ECA). LEFT CAROTID ARTERIES: Normal left common carotid artery (CCA). Normal left common carotid bulb. There is mild atherosclerotic plaque formation of the origin of the left internal carotid artery with less than 50% cross sectional diameter stenosis. Normal visualized cervical portion of the left internal carotid artery. Normal origin of the left external carotid artery (ECA). VERTEBRAL ARTERIES: Normal bilateral vertebral arteries. CT/CTA Head AND Neck W/ Contrast IMPRESSION: Calcific plaque at the origin of the left internal carotid artery causing less than 50% stenosis. N.B. : The above Results were Read Back by Leobardo Lutz MD to Dr Ceferino DO, and understanding confirmed on 10/15/2022 13:14:17 (ET). Electronically Signed: Leobardo Lutz MD at 13:16 EDT ,
[2022-10-15 13:11] LABS: BNP,B-Type NATRIURETIC PEPTIDE 26.7 pg/mL (0-100)
[2022-10-15 14:07] VITALS: BP 144/93; PULSE 98; RESP 16
[2022-10-15 14:20] LABS: Bacteria 0 SEEN /hpf (None Seen); Mucous, Urine 0 SEEN /hpf (<or=2+); Red Blood Cells-Urine 0 SEEN /hpf (0-5); Squamous Epithelial Cells - UA 0 SEEN /hpf (5-10); White Blood Cells 0 SEEN /hpf (0-5)
[2022-10-15 14:21] LABS: T4 Free Direct 1.36 ng/dL (0.76-1.46); Thyroid Stim Hormone (TSH) 1.29 uIU/mL (0.358-3.74)
[2022-10-15 14:29] LABS: Glucose, Dipstick Normal (Normal); Ketone-Dipstick Negative (Negative); Leukocyte Esterase-Dipstick Negative /ul (Negative); Nitrite-Dipstick Negative (Negative); Occult Blood-Urine Negative /ul (Negative); Protein-Dipstick Negative (Negative); Specific Gravity, Urine 1.005 (1.002-1.030); Urine Bilirubin Dipstick Negative (Negative); Urine Urobilinogen Normal (Normal)
[2022-10-15 14:30] LABS: Color, Urine Yellow (Yellow); Urine Clarity Clear (Clear)
--- NOTE | 2022-10-15 14:54 | ED.RN ---
IV removed intact, no bleeding at site. Ambulatory from dept., home with .
== END 2022-10-15 14:55 | disposition home or self-care (01) ==
PROVIDERS: Emergency Provider Emergency Medicine; PCP Family Medicine; Visit Provider Emergency Medicine
DX: R42 Dizziness and giddiness (principal); R53.83 Other fatigue; E03.9 Hypothyroidism, unspecified; I10 Essential (primary) hypertension; R06.02 Shortness of breath
CPT/HCPCS: 96361; 70496; 70498; 71045; 80048; 81001; 83880; 84439; 84443; 84484; 85025; 93005; 96360; 99285; Q9967

== ENCOUNTER → 2022-10-31 | Outpatient (CLI) | payer OTHER, SELFPAY ==
--- NOTE | 2022-10-31 17:47 | STRESSREP ---
Stress Test Report Pharmacologic myocardial perfusion stress test. 71-year-old lady with a history of dyspnea on exertion Resting EKG demonstrates sinus rhythm with a rate of 92 bpm. Right bundle branch block pattern is noted. Resting blood pressure is 138/88 mmHg. 0.4 mg of regadenoson was infused per usual protocol followed by rapid intravenous saline flush injection. Continuous EKG monitoring was performed. The maximum heart rate was 110 bpm which was 73% of max impacted heart rate the maximum workload was 1 metabolic equivalent. At rest there were no ST or T wave changes noted to suggest ischemia and at peak infusion nonspecific ST changes were noted which did not meet the criteria for ischemia. No clinical angina is noted. The final blood pressure was 118/80 mmHg. Myocardial perfusion protocol. 14.7 mCi of technetium 99m sestamibi was injected at rest. 0.4 mg of regadenoson was infused per usual protocol. At peak infusion 44.4 mCi of technetium 99m sestamibi was injected stress images were obtained stress and rest images were reconstructed and compared in the short axis vertical long and horizontal long axis. Gated images were also obtained. Perfusion SPECT analysis: Review of the stress images demonstrate normal uptake of tracer noted in all areas of the myocardium. The resting images similar demonstrated normal uptake of tracer noted in all areas of the myocardium. No areas of reversibility are noted to suggest ischemia and no previous infarct is noted. Gated SPECT analysis: The gated ejection fraction is 88%. Conclusion: Normal pharmacologic myocardial perfusion stress test. Preserved ejection fraction.
== END | disposition home or self-care (01) ==
LOC: CVS 06:26
PROVIDERS: PCP Family Medicine; Referring Provider Family Medicine; Visit Provider Family Medicine
DX: R06.09 Other forms of dyspnea (principal)
CPT/HCPCS: 78452; 93017; A9500; A4216; J2785

== ENCOUNTER → 2022-11-26 | Outpatient (CLI) | payer OTHER, SELFPAY ==
--- NOTE | 2022-11-26 10:50 | BI_ITS ---
MAMMOGRAPHY - BILATERAL SCREENING REASON FOR EXAM: Female, 72 years old. Routine annual screening examination. PERTINENT HISTORY: Sister with breast cancer. TECHNIQUE: Digital bilateral breast azra (3D mammographic acquisition) in the CC and MLO projections. 2-D mediolateral oblique (MLO) and craniocaudad (CC) views of both breasts were obtained. CAD: Full Field Digital Mammography with Computer Added Detection was performed. COMPARISON: Screening mammogram from 09/05/2015, 07/13/2012. FINDINGS: Breast Composition: There are scattered areas of fibroglandular density. There are no dominant masses or suspicious calcifications. No other significant abnormalities are identified. There has been no significant change since the prior study. BI/SCRN MAMM (CAD)W/AZRA BILAT IMPRESSION: Negative screening mammogram. No significant interval change since 09/05/2015. Yearly followup mammogram recommended. (A) ASSESSMENT CATEGORY: BIRADS Category 1: Negative. A letter regarding these results will be sent to the patient by the facility within 30 days. Approximately 10% of breast cancers are not detected by mammography. A normal mammogram should not delay biopsy of a clinically suspicious abnormality. Electronically Signed: Ruben Hsu DO at 15:39 EDT ,
--- NOTE | 2022-11-26 10:53 | BD_ITS ---
STUDY: DUAL ENERGY X-RAY ABSORPTIOMETRY / DXA REASON FOR EXAM: Female, 72 years old. [id number] TECHNIQUE: Bone Mineral Density (BMD) measurements of lumbar spine and bilateral hips were obtained. COMPARISON: Comparison is made with prior study dated September 05, 2015. FINDINGS: Lumbar Spine (L1-L4): g/cm2 (1.018) / T-score (-0.1) / Z-score (2.0) Findings are suggestive of normal bone density with a low fracture risk. Left Femur Total: g/cm2 (0.898) / T-score (-0.4) / Z-score (1.2) Left Femoral Neck: g/cm2 (0.643) / T-score (-1.9) / Z-score (0.0) Right Femur Total: g/cm2 (0.885) / T-score (-0.5) / Z-score (1.1) Right Femoral Neck: g/cm2 (0.626) / T-score (-2.0) / Z-score (-0.2) The T-Scores on the most recent prior examination were: Lumbar Spine (L1-L4): There has been worsening of bone density since the previous examination. Left Femur Total: which represents an improvement of 5.2%. Right Femur Total: which represents a worsening of 2.7%. BD/Dexa Bone Density Study IMPRESSION: The patient is considered osteopenic as outlined below according to World Russ Organization (WHO) criteria with a moderate fracture risk. There has been worsening of bone density since the previous examination. Reference Information: The T-score is the number of standard deviations above or below the standard which is normal for young adults at their peak bone mineral density. The World Health Organization (WHO) interprets the T-scores as follows: Above -1 Normal bone density Between -1 and -2.5 Osteopenia Equal to / or below -2.5 Osteoporosis As a practical clinical guideline, osteopenia may be graded as follows: Mild -1 through -1.5 Moderate -1.6 through -2.0 Severe -2.1 through -2.4 The Z-score is the number of standard deviations above or below age-matched controls. A Z-score of less than -1.5 would be considered abnormal. References: 1. NIH Osteoporosis and Related Bone Diseases www osteo.org 2. International Society for Clinical Densitometry www iscd.org 3. National Osteoporosis Foundation www nof.org Electronically Signed: Leobardo Lutz MD at 15:23 EDT ,
== END | disposition home or self-care (01) ==
LOC: OPBI 10:49
PROVIDERS: PCP Family Medicine; Referring Provider Family Medicine; Visit Provider Family Medicine
DX: Z12.31 Encounter for screening mammogram for malignant neoplasm of breast (principal); Z78.0 Asymptomatic menopausal state; Z80.3 Family history of malignant neoplasm of breast
CPT/HCPCS: 77063; 77067; 77080

== ENCOUNTER 2023-02-17 18:09 | Emergency (ER) | payer MEDICARE, OTHER, SELFPAY ==
[2023-02-17 18:14] VITALS: BP 155/89; PULSE 93; RESP 14; TEMP 36.5; O2SAT 98; BMI 46.1
--- NOTE | 2023-02-17 18:28 | EX.ED.DYSGE1 ---
HPI <LINDSAY Whitmore - Last Filed: 02/17/23 20:45> History of Present Illness Chief Complaint: Dizziness Narrative Narrative: 72-year-old female with past medical history of hypertension and hypothyroidism presents with lightheadedness. She states this morning at work she had about 15 minutes of colorful prisms in both eyes. There was no pain or headache associated with this and no neurological symptoms. It resolved and she went on with her day. She got home from work about 430 and felt lightheaded with a warm sensation in her head. No other associated symptoms. No chest pain or shortness of breath. She assumed her blood pressure was high because this morning at a doctor's appointment it was 150s/80s so she took a second dose of losartan around 5 PM. She normally only takes it in the morning. She states she is starting to feel better. She has had no recent illness, no fever or upper respiratory symptoms, no GI symptoms. PFSH <LINDSAY Whitmore - Last Filed: 02/17/23 20:45> [facility] Medical History (Updated 02/17/23 @ 20:08 by LINDSAY Whitmore) Lower extremity pain Home Medications levothyroxine 100 mcg capsule 100 mcg PO DAILY 02/08/21 [History Last Taken Unknown] losartan 50 mg-hydrochlorothiazide 12.5 mg tablet 1 tab PO DAILY 02/08/21 [History Last Taken Unknown] tramadol 50 mg tablet 50 mg PO Q6H PRN pain 2 days #8 tabs 09/19/22 [Rx Last Taken Unknown] cephalexin 500 mg capsule 500 mg PO BID 7 days #14 caps 02/17/23 [Rx Last Taken Unknown] Allergy/AdvReac Type Severity Reaction Status Date / Time Sulfa (Sulfonamide Allergy unknown Verified 02/17/23 18:14 Antibiotics) Social History Smoking Status: Never smoker ROS <LINDSAY Whitmore - Last Filed: 02/17/23 20:45> ROS ED ROS Narrative Constitutional: Negative for fever, chills, malaise. CVS: Negative for palpitations, chest pain, syncope. Respiratory: Negative for shortness of breath, cough. GI: Negative for abdominal pain, nausea, vomiting, diarrhea, melena, hematochezia. : Negative for dysuria, hematuria or frequency. Neuro: Negative for headache, motor/sensory dysfunction. EXAM <LINDSAY Whitmore - Last Filed: 02/17/23 20:45> Physical Exam Narrative Exam Narrative: CONST: Patient sitting in no acute distress. EYES: Normal inspection. ENT: Normal inspection, moist mucous membranes. NECK: Normal inspection. RESP: No respiratory distress, CTAB. CVS: Regular rate and rhythm, no murmur, no gallop. ABD: Soft and nontender, no guarding or rebound, nondistended. SKIN: Color normal, no rash, warm, dry, intact. EXTREMITIES: Normal appearance, no pedal edema. NEURO: Oriented x4. 5/5 upper and lower extremity strength. PSYCH: Normal affect. Const Vital Signs: 02/17/23 18:14 02/17/23 18:22 02/17/23 20:34 Temperature 97.7 F L Temperature Source Oral Pulse Rate 93 85 Respiratory Rate 14 16 Respiratory Effort Normal Non-Labored Respiratory Pattern Normal Blood Pressure 155/89 H 136/88 H Blood Pressure Mean 111 104 Pulse Ox 98 95 Oxygen Delivery Method Room Air <Abimael Trevino MD - Last Filed: 02/17/23 23:15> Physical Exam Const Vital Signs: 02/17/23 18:14 02/17/23 18:22 02/17/23 20:34 Temperature 97.7 F L Temperature Source Oral Pulse Rate 93 85 Respiratory Rate 14 16 Respiratory Effort Normal Non-Labored Respiratory Pattern Normal Blood Pressure 155/89 H 136/88 H Blood Pressure Mean 111 104 Pulse Ox 98 95 Oxygen Delivery Method Room Air [facility] <LINDSAY Whitmore - Last Filed: 02/17/23 20:45> [facility] Narrative Medical decision making narrative: Patient presents with lightheadedness. She appears well and nontoxic. Vital signs stable. She was concerned her blood pressure was high and here is 155/89. Her medical exam is unremarkable. Neurologically intact. CBC and BMP are unremarkable. EKG is normal sinus rhythm 81 bpm with no acute ischemic changes. Troponin is 6. XR shows cardiomegaly with no acute findings. UA has leukocyte esterase, 10-20 WBCs, but is nitrate and bacteria negative. It is a clean sample so she may have the start of UTI and I will treat with Keflex. Culture sent. Patient is feeling improved here after fluids and was discharged in stable condition. Lab Data Attestation: I reviewed the patient's lab results. Labs: Laboratory Results - last 24 hr 02/17/23 02/17/23 18:33 19:30 WBC 6.4 RBC 4.62 Hgb 13.9 Hct 42.6 MCV 92.2 MCH 30.1 MCHC 32.6 RDW Std Deviation 43.8 RDW Coeff of Piper 13.0 Plt Count 276 MPV 9.8 Immature Gran % (Auto) 0.300 Neut % (Auto) 55.1 Lymph % (Auto) 30.2 Buchanan % (Auto) 11.4 H Eos % (Auto) 2.2 Baso % (Auto) 0.8 Absolute Neuts (auto) 3.5 Absolute Lymphs (auto) 1.94 Nucleated RBC % 0 Sodium 141 Potassium 3.5 Chloride 106 Carbon Dioxide 28.0 Anion Gap 7 BUN 24 H Creatinine 0.91 Estim Creat Clear Calc 46.91 Est GFR (MDRD) Af Amer 78 Est GFR (MDRD) Non-Af 64 BUN/Creatinine Ratio 26.3 H Glucose 142 H Calcium 9.4 Troponin I High Sens 6 Urine Color Yellow Urine Clarity Sl. Cloudy Urine pH 6.0 Ur Specific [place] 1.020 Urine Protein Negative Urine Glucose (UA) Normal Urine Ketones Negative Urine Occult Blood Negative Urine Nitrite Negative Urine Bilirubin Negative Urine Urobilinogen Normal Ur Leukocyte Esterase 100 H Urine RBC 0 SEEN Urine WBC 10-25 SEEN Ur Squamous Epith Cells 0-5 SEEN Amorphous Sediment 1+ URATE Urine Bacteria RARE Urine Mucus 0 SEEN Radiography Diagnostic Testing: Clinical Impression(s) from Imaging Studies Chest X-Ray 02/17/23 18:38 IMPRESSION: Cardiomegaly without radiographic evidence of acute cardiopulmonary disease. Electronically Signed: Merrill Thomas MD at 18:49 EST Reading Location ID and State: [facility] / [place] Tel , Service support , EKG Initial EKG: Attestation: I personally reviewed and interpreted this EKG as follows: Interpretation: Sinus Rhythm, No Acute Injury Pattern and RBBB Comments: Sinus rhythm 81 bpm RBBB No acute STEMI criteria <Abimael Trevino MD - Last Filed: 02/17/23 23:15> [facility] MDM Narrative Medical decision making narrative: Patient presents with lightheadedness. She appears well and nontoxic. Vital signs stable. She was concerned her blood pressure was high and here is 155/89. Her medical exam is unremarkable. Neurologically intact. CBC and BMP are unremarkable. EKG is normal sinus rhythm 81 bpm with no acute ischemic changes. Troponin is 6. XR shows cardiomegaly with no acute findings. UA has leukocyte esterase, 10-20 WBCs, but is nitrate and bacteria negative. It is a clean sample so she may have the start of UTI and I will treat with Keflex. Culture sent. Patient is feeling improved here after fluids and was discharged in stable condition. Dr. Trevino: I have personally performed a face to face assessment of the patient and have reviewed the LV Note. I performed a substantive portion of the visit including all aspects of the following. My ivan findings include: History is lightheaded and dizzy. Theodore she needed extra dose of antihypertensive. Exam is afebrile. Vital signs noted. Regular rate and rhythm. Lungs clear to auscultation bilaterally. Abdomen soft nontender. Neurological examination nonfocal and nonlateralizing. Medical Decision Making: Check labs. EKG interpreted by myself demonstrates normal sinus rhythm at 81 bpm without ectopy or acute ST changes. No STEMI. Chest x-ray 1 view interpreted by myself independently shows cardiomegaly but no acute findings. I reviewed the radiology report which confirms my independent interpretation. She is asymptomatic currently. Although she is not having dysuria, she may have the beginnings of a urinary tract infection. Treat with antibiotics. I do not feel she requires observation at this time. I have low concern for TIA or stroke. She may have had transient hypotension. Discharge. Other additions or changes: [None] History & Record Review Discussion w/independent historian: Patient Additional record(s) reviewed:: Prior ED visit Lab Data Labs: Laboratory Results - last 24 hr 02/17/23 02/17/23 18:33 19:30 WBC 6.4 RBC 4.62 Hgb 13.9 Hct 42.6 MCV 92.2 MCH 30.1 MCHC 32.6 RDW Std Deviation 43.8 RDW Coeff of Piper 13.0 Plt Count 276 MPV 9.8 Immature Gran % (Auto) 0.300 Neut % (Auto) 55.1 Lymph % (Auto) 30.2 [place]anan % (Auto) 11.4 H Eos % (Auto) 2.2 Baso % (Auto) 0.8 Absolute Neuts (auto) 3.5 Absolute Lymphs (auto) 1.94 Nucleated RBC % 0 Sodium 141 Potassium 3.5 Chloride 106 Carbon Dioxide 28.0 Anion Gap 7 BUN 24 H Creatinine 0.91 Estim Creat Clear Calc 46.91 Est GFR (MDRD) Af Amer 78 Est GFR (MDRD) Non-Af 64 BUN/Creatinine Ratio 26.3 H Glucose 142 H Calcium 9.4 Troponin I High Sens 6 Urine Color Yellow Urine Clarity Sl. Cloudy Urine pH 6.0 Ur Specific [place] 1.020 Urine Protein Negative Urine Glucose (UA) Normal Urine Ketones Negative Urine Occult Blood Negative Urine Nitrite Negative Urine Bilirubin Negative Urine Urobilinogen Normal Ur Leukocyte Esterase 100 H Urine RBC 0 SEEN Urine WBC 10-25 SEEN Ur Squamous Epith Cells 0-5 SEEN Amorphous Sediment 1+ URATE Urine Bacteria RARE Urine Mucus 0 SEEN Radiography Diagnostic Testing: Clinical Impression(s) from Imaging Studies Chest X-Ray 02/17/23 18:38 IMPRESSION: Cardiomegaly without radiographic evidence of acute cardiopulmonary disease. Electronically Signed: Merrill Thomas MD at 18:49 EST Reading Location ID and State: [address] [place] [address] Tel , Service support , Discharge Plan Triage Chief Complaint: Dizziness ED Midlevel Provider: Shanda Foote ED Provider: Abimael Trevino Dx/Rx/DC Orders Clinical Impression: Lightheadedness, Acute UTI Instructions: Urinary Tract Infections in Women, Dizziness Fainting Causes Prescriptions: New cephalexin 500 mg capsule 500 mg PO BID 7 Days Qty: 14 0RF No Action losartan-hydrochlorothiazide 50-12.5 mg Tablet 1 tab PO DAILY levothyroxine 100 mcg Capsule 100 mcg PO DAILY tramadol 50 mg tablet 50 mg PO Q6H PRN (Reason: pain) 2 Days Qty: 8 0RF Primary Care Provider: John Barboza Referrals: John Barboza MD [Primary Care Provider] - Activity Restrictions/Additional Instructions: There is signs he might be developing a urinary tract infection so I prescribed antibiotics. Please follow-up with your primary care doctor this week so they can check on the urine culture. Disposition Disposition: Home, Self Care Discharge Date/Time: 02/17/23 20:46
[2023-02-17] MEDS: 0.9% Normal Saline (1000mL) 1,000 ML 999 ML IV (18:34)
--- NOTE | 2023-02-17 18:38 | RAD_ITS ---
INDICATION: lightheadedness EXAMINATION/TECHNIQUE: X-RAY - portable upright AP chest x-ray COMPARISON: 10/15/2022 FINDINGS: LINES/DEVICES: None. LUNGS: No consolidation, edema or effusion. No pneumothorax. MEDIASTINUM AND CARDIOVASCULAR STRUCTURES: Stable mild cardiomegaly. BONES AND SOFT TISSUES: No acute changes. RAD/Chest 1 View (Portable) IMPRESSION: Cardiomegaly without radiographic evidence of acute cardiopulmonary disease. Electronically Signed: Merrill Thomas MD at 18:49 EST ,
[2023-02-17 18:51] LABS: Absolute Lymphocyte Count 1.94 X10^3/uL (0.83-4.51); Absolute Neutrophil Count 3.5 X10^3/uL (2.0-7.7); Basophil# 0.05 X10^3/uL; Basophil% 0.8 % (0-1); Eosinophil# 0.14 X10^3/uL; Eosinophils% 2.2 % (0-5); Hematocrit 42.6 % (37-47); Hemoglobin 13.9 g/dL (12.0-15.0); Lymphocyte # 1.94 X10^3/ul (0.83-4.51); Lymphocyte % 30.2 % (19-41); Mean Corp Hgb Conc 32.6 g/dL (32-36); Mean Corpuscular Hgb 30.1 pg (27.0-32.0); Mean Corpuscular Volume 92.2 fL (81-99); Mean Platelet Vol. 9.8 fl (6.2-12.0); Monocyte# 0.73 X10^3/uL; Monocyte% 11.4 % (0-10); NRBC Flagged by Analyzer 0 % (0-5); Neutrophil # 3.54 X10^3/uL (2.7-7.7); Neutrophil % 55.1 % (47-70); Platelet Count 276 K/mm3 (150-450); RBC Distribution Width SD 43.8 fl (35.1-43.9); Red Blood Count 4.62 M/mm3 (4.2-5.4); White Blood Count 6.4 K/mm3 (4.4-11.0)
[2023-02-17 19:02] LABS: Anion Gap 7 (5-15); BUN 24 mg/dL (7-18); BUN/Creat Ratio 26.3 RATIO (10-20); Calcium,Total 9.4 mg/dL (8.5-10.1); Chloride 106 mmol/L (98-107); Creatinine, Serum 0.91 mg/dL (0.55-1.02); EST Glomerular Filtration Rate 64 mL/min (>60); Est Glom Filt Rate - Afr Amer 78 mL/min (>60); Estimated Creatinine Clearance 46.91 ml/min; Glucose 142 mg/dL (74-106); Potassium 3.5 mmol/L (3.5-5.1); Sodium Level 141 mmol/L (136-145); Troponin-I HS 6 pg/mL (3.0-54.0)
--- NOTE | 2023-02-17 19:27 | EKG12_ITS ---
Test Reason : DIZZY Blood Pressure : / mmHG Vent. Rate : 081 BPM Atrial Rate : 081 BPM P-R Int : 144 ms QRS Dur : 132 ms QT Int : 416 ms P-R-T Axes : 039 -05 006 degrees QTc Int : 483 ms Normal sinus rhythm Right bundle branch block Inferior infarct , age undetermined Abnormal ECG Confirmed by CALIN SMART, CADENCE ([id number]), field map editor CASSIE ALMANZAR ([id number]) on 02/26/2023 10:06:15 AM Referred By: Confirmed By:CADENCE LAYTON MD
[2023-02-17 19:38] LABS: Mucous, Urine 0 SEEN /hpf (<or=2+); Red Blood Cells-Urine 0 SEEN /hpf (0-5)
[2023-02-17 19:41] LABS: Color, Urine Yellow (Yellow); Glucose, Dipstick Normal (Normal); Ketone-Dipstick Negative (Negative); Leukocyte Esterase-Dipstick 100 /ul (Negative); Nitrite-Dipstick Negative (Negative); Occult Blood-Urine Negative /ul (Negative); Protein-Dipstick Negative (Negative); Urine Bilirubin Dipstick Negative (Negative); Urine Clarity Sl. Cloudy (Clear); Urine Urobilinogen Normal (Normal)
[2023-02-17 19:52] LABS: White Blood Cells 10-25 SEEN /hpf (0-5)
[2023-02-17 19:53] LABS: Amorphous Sediment 1+ URATE; Bacteria RARE /hpf (None Seen); Squamous Epithelial Cells - UA 0-5 SEEN /hpf (5-10)
[2023-02-17 20:34] VITALS: BP 136/88; PULSE 85; RESP 16; O2SAT 95
[2023-02-17] MEDS: Cephalexin 250 MG Capsule 500 MG PO (20:41)
== END 2023-02-17 20:46 | disposition home or self-care (01) ==
PROVIDERS: Physician Assistant; Emergency Provider Emergency Medicine; PCP Family Medicine; Visit Provider Emergency Medicine
DX: R42 Dizziness and giddiness (principal); N39.0 Urinary tract infection, site not specified; I10 Essential (primary) hypertension; E03.9 Hypothyroidism, unspecified; Z79.899 Other long term (current) drug therapy
CPT/HCPCS: 71045; 80048; 81001; 84484; 85025; 87077; 87086; 87088; 87186; 93005; 96360; 96361; 99285; J7030; A4216

== ENCOUNTER → 2023-11-11 | Outpatient (CLI) | payer MEDICARE, OTHER, SELFPAY ==
[2023-11-11 18:10] LABS: T4 Free Direct 1.28 ng/dL (0.76-1.46); Thyroid Stim Hormone (TSH) 0.95 uIU/mL (0.358-3.74)
== END | disposition home or self-care (01) ==
LOC: MFPLAB 16:44
PROVIDERS: PCP Family Medicine; Visit Provider Family Medicine
DX: E03.9 Hypothyroidism, unspecified (principal)
CPT/HCPCS: 36415; 84439; 84443

== ENCOUNTER 2024-03-15 17:45 | Observation (INO) | payer MEDICARE, OTHER, SELFPAY ==
[2024-03-15] VITALS (7 sets, daily range): BP systolic 137–159; BP diastolic 73–97; PULSE 80–85; RESP 15–20; TEMP 36.2–37.2; O2SAT 92–98; BMI 34.5; BMI 35.9
--- NOTE | 2024-03-15 17:46 | EKG12_ITS ---
Test Reason : STROKE Blood Pressure : */* mmHG Vent. Rate : 76 BPM Atrial Rate : 76 BPM P-R Int : 158 ms QRS Dur : 142 ms QT Int : 430 ms P-R-T Axes : 41 -10 -5 degrees QTcB Int : 483 ms Normal sinus rhythm Right bundle branch block Abnormal ECG Confirmed by CADENCE LAYTON MD ([id number]), subeditor DEBBIE WHYTE ([id number]) on 03/16/2024 8:17:48 AM Referred By: Confirmed By: CADENCE LAYTON MD
--- NOTE | 2024-03-15 17:47 | ED.VIS.STROK ---
HPI History of Present Illness Chief Complaint: Stroke Alert Detail of Chief Complaint: Paresthesias Informant: patient Narrative Narrative: Patient presents to the emergency department via EMS with concern for paresthesias to the left face and left arm and left leg. Patient states symptoms started at 5 PM. She has not had symptoms like this before. No history of stroke. She is not anticoagulated. Initially did not have a headache but currently has a mild headache. She denies recent illness. She has history of hypertension. Patient states currently her symptoms are resolved. [facility] Medical History (Updated 03/15/24 @ 18:[address] Reagan Hayes, DO) Melanoma Lower extremity pain Home Medications ?Medication ?Instructions ?Recorded ?Last Taken ?Type levothyroxine 100 mcg capsule 100 mcg PO DAILY 02/08/21 Unknown History losartan 50 mg-hydrochlorothiazide 1 tab PO DAILY 02/08/21 Unknown History 12.5 mg tablet Allergy/AdvReac Type Severity Reaction Status Date / Time Sulfa (Sulfonamide Allergy unknown Verified 02/17/23 18:14 Antibiotics) Social History Smoking Status: Never smoker ROS ROS ED Review of Systems ROS Unobtainable: other Constitutional Constitutional ED: Reports lethargy; Denies chills, fever(s), sweats or weight loss Eyes Eyes: Denies blurry vision, change in vision or diplopia ENT ENT ED: Denies rhinorrhea or sore throat Cardiovascular Cardiovascular: Denies chest pain, orthopnea or racing heartbeat Respiratory/Chest Respiratory/Chest: Denies cough, dyspnea, dyspnea on exertion, orthopnea or sputum Gastrointestinal Gastrointestinal: Denies abdominal pain, diarrhea, nausea or vomiting Genitourinary Genitourinary ED: Denies dysuria, hematuria or urinary frequency Musculoskeletal Musculoskeletal: Denies arthralgias, back pain, myalgias or neck pain Integumentary Denies abscess, Abrasions or rash Neurologic Neurologic: Reports headache(s) and paresthesias; Denies weakness Psychiatric Psychiatric: Denies anxiety, depression or suicidal thoughts Endocrine Endocrinology: Denies polydipsia, polyphagia or polyuria Hematologic/Lymphatic Hematologic/Lymphatic: Denies easy bleeding, easy bruising or lymphadenopathy Allergic/Immunologic Allergic/Immunologic ED: Denies mouth swelling, tongue swelling or urticaria EXAM Physical Exam Const Vital Signs: 03/15/24 17:48 03/15/24 18:03 03/15/24 18:05 Temperature 98.9 F 97.5 F L Temperature Source Oral Oral Pulse Rate 81 Respiratory Rate 20 H Blood Pressure 142/73 H Blood Pressure Mean 96 Pulse Ox 96 Oxygen Delivery Method Room Air Room Air Positive well nourished and well developed General Appearance ED: well developed and NAD HEENT Reports TM's clear and moist mucous membranes normocephalic and atraumatic; Negative for trauma or tenderness Tympanic Membrane ED: Yes TM's clear Eyes PERRL and EOMs intact bilaterally General Eye ED: Negative for pale conjunctiva or scleral icterus Neck no lymphadenopathy, supple and no JVD General: Negative for tenderness Chest Wall inspection of chest normal and palpation of chest normal Chest: Negative for tenderness Resp normal respiratory effort and clear to auscultation bilaterally Effort and Inspection: Negative for respiratory distress or pain with movement Auscultation: Negative for rhonchi, wheezes or diminished lung sounds Cardio regular rate, regular rhythm, S1 normal heart sound, S2 normal heart sound and no murmurs Peripheral Pulses: pulses 2+ throughout GI normal to inspection, nondistended, normoactive bowel sounds, soft to palpation, non-tender, non-distended and no masses Back/Spine no CVA tenderness and no thoracic nor lumbar tenderness Extremity normal to inspection General Extremety ED: Negative for edema General Extremity: Negative for edema Neuro oriented x3, CN's II-XII intact bilaterally, no sensory deficits noted and gait normal Neuro Narrative: NIH stroke scale is 0. No focal weakness noted. No sensory deficits noted currently. No ataxia. Sensorium / Orientation: awake, alert, oriented to person, oriented to place and oriented to time Motor Exam: strength 5/5 throughout and strength abnormal Psych mental status grossly normal Skin no rashes or lesions noted and no wounds MDM MDM MDM Narrative Medical decision making narrative: Patient presents with paresthesia to the left side of her body and left face concerning for TIA given that her symptoms have currently resolved. Last known well was 5 PM. On arrival her NIH stroke scale is 0. CT scan of the brain without contrast was obtained which was unremarkable without evidence of hemorrhage. Radiology also called with CTA results of the head and neck which were unremarkable. CBC with differential white count of 6.8 with hemoglobin 12.2 and platelet count of 225. Patient will be evaluated by stroke neurologist and will discuss with hospitalist to evaluate patient for admission for TIA. Lab Data Attestation: I reviewed the patient's lab results. Labs: Laboratory Results - last 24 hr 03/15/24 18:04 WBC 6.8 RBC 3.91 L Hgb 12.2 Hct 36.3 L MCV 92.8 MCH 31.2 MCHC 33.6 RDW Std Deviation 43.1 RDW Coeff of Piper 12.7 Plt Count 225 MPV 9.8 Immature Gran % (Auto) 0.400 Neut % (Auto) 42.5 L Lymph % (Auto) 42.1 H Terry % (Auto) 12.1 H Eos % (Auto) 2.5 Baso % (Auto) 0.4 Absolute Neuts (auto) 2.9 Absolute Lymphs (auto) 2.88 Nucleated RBC % 0 Radiography Diagnostic Testing: Clinical Impression(s) from Imaging Studies Brain CT 03/15/24 17:48 IMPRESSION: No acute findings in the head/brain. Minimal chronic parenchymal changes. Electronically Signed: Charlene Bazan MD at 18:05 EST Reading Location ID and State: [facility] / MD Tel , Service support , ADDENDUM: 03/15/24 1813 IMPRESSION: No acute findings in the head/brain. Minimal chronic parenchymal changes. N.B. : The above Results were Read Back by Charlene Bazan MD to Reagan Hayes MD, and understanding confirmed on 03/15/2024 18:06:55 (ET). Electronically Signed: Charlene Bazan MD at 18:05 EST , EKG Initial EKG: Attestation: I personally reviewed and interpreted this EKG as follows: Comments: Sinus rhythm with ventricular rate 76 bpm with right bundle branch block Discharge Plan Triage Chief Complaint: Stroke Alert ED Provider: Reagna Hayes Dx/Rx/DC Orders Clinical Impression: Brain TIA, Hypertension, Paresthesias Prescriptions: No Action losartan-hydrochlorothiazide 50-12.5 mg Tablet 1 tab PO DAILY levothyroxine 100 mcg Capsule 100 mcg PO DAILY Primary Care Provider: Bryan Barboza Referrals: Bryan Barboza MD [Primary Care Provider] - Print Language: Macedonian Disposition Disposition: Acute Care Hospital [facility]
--- NOTE | 2024-03-15 17:48 | CT_ITS ---
We are attempting to reach an attending provider to discuss findings. An addendum with communication details will be sent when the communication is complete. EXAM: CT HEAD WITHOUT INTRAVENOUS CONTRAST CLINICAL INDICATION: Neuro deficit, acute, stroke suspected TECHNIQUE: Multiple axial images were obtained of the head without intravenous contrast. This CT exam was performed using one or more of the following dose reduction techniques: automated exposure control, adjustment of the mA and/or kV according to patient size, and/or use of iterative reconstruction technique. RADIATION DOSE: CTDIvol = 44.99 mGy, DLP = 779.74 mGy-cm. COMPARISON: October 15, [address] with CTA. FINDINGS: ARTIFACTS: Mild streak artifacts. BRAIN AND EXTRA-AXIAL SPACES: Mild cerebral volume loss, mild prominent CSF spaces over the frontal convexities. No intra- or extra-axial hemorrhage. No evidence of acute infarct. No intracranial mass or mass effect. There is preservation of the steward/white matter interface. Posterior fossa structures are unremarkable. Basal cisterns are patent. BONES/JOINTS: Unremarkable. No discrete lytic or blastic abnormalities. VASCULATURE: Mild intracranial tibial artery calcifications and moderate intracranial carotid calcifications similar to prior exam. SINUSES: Unremarkable as visualized. Clear. MASTOID AIR CELLS: Unremarkable. Clear. ORBITS: Visualized globes, extraocular muscles, optic nerves and retrobulbar fat appear unremarkable. OTHER FINDINGS: Aspects: 01/14. CT/STROKE Brain/Head without Cont IMPRESSION: No acute findings in the head/brain. Minimal chronic parenchymal changes. Electronically Signed: Charlene Bazan MD at 18:05 EST ,
--- NOTE | 2024-03-15 17:50 | CT_ITS ---
EXAM: CT ANGIOGRAPHY HEAD AND NECK WITH INTRAVENOUS CONTRAST CLINICAL INDICATION: Neuro deficit, acute, stroke suspected TECHNIQUE: [facility] [place]/head and neck CT angiography protocol performed with intravenous contrast. This CT exam was performed using one or more of the following dose reduction techniques: automated exposure control, adjustment of the mA and/or kV according to patient size, and/or use of iterative reconstruction technique. MIP reconstructed images were created and reviewed. CONTRAST: IV 100mL [id number] RADIATION DOSE: CTDIvol = 18.38 mGy, DLP = 734.46 mGy-cm COMPARISON: October 15, 2022. FINDINGS: HEAD: RIGHT ANTERIOR CEREBRAL ARTERY: Unremarkable. No occlusion or significant stenosis. Anterior communicating artery is present. No aneurysm. RIGHT MIDDLE CEREBRAL ARTERY: Unremarkable. No occlusion or significant stenosis. No aneurysm. RIGHT POSTERIOR CEREBRAL ARTERY: Unremarkable. No occlusion or significant stenosis. No aneurysm. RIGHT INTRACRANIAL INTERNAL CAROTID ARTERY: Unremarkable. No significant stenosis. No dissection or occlusion. RIGHT INTRACRANIAL VERTEBRAL ARTERY: Unremarkable. No significant stenosis. No dissection or occlusion. LEFT ANTERIOR CEREBRAL ARTERY: Unremarkable. No occlusion or significant stenosis. No aneurysm. LEFT MIDDLE CEREBRAL ARTERY: Unremarkable. No occlusion or significant stenosis. No aneurysm. LEFT POSTERIOR CEREBRAL ARTERY: Small patent left posterior communicating artery contributes to the left P2 segment. No occlusion or significant stenosis. No aneurysm. LEFT INTRACRANIAL INTERNAL CAROTID ARTERY: Unremarkable. No significant stenosis. No dissection or occlusion. LEFT INTRACRANIAL VERTEBRAL ARTERY: Unremarkable. No significant stenosis. No dissection or occlusion. BASILAR ARTERY: Unremarkable. No occlusion or significant stenosis. No aneurysm. OTHER VASCULATURE: No vascular malformation. The deep veins and dural venous sinuses are enhanced. NECK: RIGHT COMMON CAROTID ARTERY: Unremarkable. No significant stenosis. No dissection or occlusion. RIGHT EXTRACRANIAL INTERNAL CAROTID ARTERY: There is mild mixed density plaque with estimated less than 30% stenosis of proximal right ICA. No dissection or occlusion. RIGHT EXTERNAL CAROTID ARTERY: Unremarkable. No occlusion. RIGHT EXTRACRANIAL VERTEBRAL ARTERY: Unremarkable. No significant stenosis. No dissection or occlusion. LEFT COMMON CAROTID ARTERY: Unremarkable. No significant stenosis. No dissection or occlusion. LEFT EXTRACRANIAL INTERNAL CAROTID ARTERY: Mild calcified plaque with less than 30% estimated narrowing of left ICA. LEFT EXTERNAL CAROTID ARTERY: Unremarkable. No occlusion. LEFT EXTRACRANIAL VERTEBRAL ARTERY: Unremarkable. No significant stenosis. No dissection or occlusion. ARCH, BRACHIOCEPHALIC AND SUBCLAVIAN ARTERIES: Unremarkable as visualized with the exception of slight calcified plaque of the arch and proximal great vessels. No occlusion or significant stenosis. LUNG APICES: Unremarkable as visualized. HEAD and NECK: BONES/JOINTS: Marked disc space narrowing at C6-7 minimal spondylosis, no significant spinal stenosis. There appears to be at least mild periodontal disease, lucency around the 2 left first maxillary molar roots. No discrete lytic or blastic abnormalities. SOFT TISSUES: Unremarkable. CAROTID STENOSIS REFERENCE USING NASCET CRITERIA: % ICA stenosis = (1 - narrowest ICA diameter/diameter of distal cervical ICA) x 100. Mild - <50% stenosis. Moderate - 50-69% stenosis. Severe - 70-94% stenosis. Near occlusion - 95-99% stenosis. Occluded - 100% stenosis. CT/STROKE CTA Head AND Neck W/Con IMPRESSION: No acute findings in the arteries of the head and neck. No large vessel occlusion. Mild plaque of the bilateral cervical ICAs, no significant stenosis. Mild calcifications of intracranial ICAs, no significant stenosis. N.B. : The above Results were Read Back by Charlene Bazan MD to Reagan Hayes DO, and understanding confirmed on 03/15/2024 18:25:55 (ET). Electronically Signed: Charlene Bazan MD at 18:29 EST ,
[2024-03-15 18:16] LABS: Absolute Lymphocyte Count 2.88 X10^3/uL (0.83-4.51); Absolute Neutrophil Count 2.9 X10^3/uL (2.0-7.7); Basophil# 0.03 X10^3/uL; Basophil% 0.4 % (0-1); Eosinophil# 0.17 X10^3/uL; Eosinophils% 2.5 % (0-5); Hematocrit 36.3 % (37-47); Hemoglobin 12.2 g/dL (12.0-15.0); Lymphocyte # 2.88 X10^3/ul (0.83-4.51); Lymphocyte % 42.1 % (19-41); Mean Corp Hgb Conc 33.6 g/dL (32-36); Mean Corpuscular Hgb 31.2 pg (27.0-32.0); Mean Corpuscular Volume 92.8 fL (81-99); Mean Platelet Vol. 9.8 fl (6.2-12.0); Monocyte# 0.83 X10^3/uL; Monocyte% 12.1 % (0-10); NRBC Flagged by Analyzer 0 % (0-5); Neutrophil % 42.5 % (47-70); Platelet Count 225 K/mm3 (150-450); RBC Distribution Width CV 12.7 % (11.6-14.6); RBC Distribution Width SD 43.1 fl (35.1-43.9); Red Blood Count 3.91 M/mm3 (4.2-5.4); White Blood Count 6.8 K/mm3 (4.4-11.0)
[2024-03-15 18:28] LABS: International Normalized Ratio 1.2; Prothrombin Time (Protime)PT. 14.9 SECONDS (11.7-14.9)
--- NOTE | 2024-03-15 18:34 | HP.PCM.HOS_ITS ---
HPI - General General Date of Admission: 03/15/24 Date of Service: 03/15/24 Chief Complaint: Strokelike symptoms HPI Narrative DIEGO RINALDI, is a 73 F who presented to [facility] ED on 03/15/2024 with strokelike symptoms. Patient had acute onset paresthesias of her left face, left arm and left leg around 5 PM tonight. Has never had symptoms like this before. No history of stroke. Denies any motor issues with the arm or leg with this. Her symptoms lasted for about 20 minutes and then resolved. Symptoms had resolved by arrival to the ED. She was a stroke alert on arrival. CT brain was negative. CTA head/neck showed mild plaque of the bilateral cervical ICAs and mild calcifications of intracranial ICAs with no significant stenosis. She had mild hypertension with systolic in the 140s but was otherwise hemodynamically stable on room air. Was evaluated by teleneurology in the ED who recommended admission for further stroke workup. Hospitalist was then contacted for admission. I saw the patient at bedside in the ED, was present. Patient was sitting up comfortably in bed, conversing normally, in no acute distress. She denied any current pain or discomfort. Denied any left arm or leg numbness or tingling. Denied any left facial numbness or tingling. Denied any other concerns at this time. Will be admitted for further management. [facility] Medical History (Updated 03/15/24 @ 18:[address] Reagan Hayes, ) Melanoma Lower extremity pain Home Medications ?Medication ?Instructions ?Recorded ?Last Taken ?Type levothyroxine 100 mcg capsule 100 mcg PO DAILY 02/08/21 Unknown History losartan 50 mg-hydrochlorothiazide 1 tab PO DAILY 02/08/21 Unknown History 12.5 mg tablet Allergy/AdvReac Type Severity Reaction Status Date / Time Sulfa (Sulfonamide Allergy unknown Verified 02/17/23 18:14 Antibiotics) Social History Smoking Status: Never smoker ROS Constitutional Constitutional: Denies chills, fatigue, fever(s) or weakness Eyes Eyes: Denies change in vision Cardiovascular Cardiovascular: Denies chest pain, palpitations or syncope Respiratory/Chest Respiratory/Chest: Denies cough or shortness of breath at rest Gastrointestinal Gastrointestinal: Denies abdominal pain Musculoskeletal Musculoskeletal: Denies arthralgias or myalgias Neurologic Neurologic: Denies abnormal gait, confusion, disequilibrium, dizziness, focal weakness, headache(s), numbness, paresthesias or tingling Vital Signs Vital Signs Vital Signs: 03/15/24 17:48 03/15/24 18:03 03/15/24 18:05 Temperature 98.9 F 97.5 F L Temperature Source Oral Oral Pulse Rate 81 Respiratory Rate 20 H Blood Pressure 142/73 H Blood Pressure Mean 96 Pulse Ox 96 Oxygen Delivery Method Room Air Room Air Weight Weight: 88.5 kg Body Mass Index (BMI) 34.5 Physical Exam Const alert, oriented x3 and no apparent distress Constitutional Narrative: Pleasant elderly female, class II obesity, sitting up comfortably in bed, conversing normally, in no acute distress. General Appearance: cooperative and comfortable HEENT normocephalic, head/scalp atraumatic, hearing grossly normal bilaterally, nasal mucous membranes and turbinates normal and moist oral mucous membranes Eyes PERRL, EOMs intact bilaterally and conjunctivae normal Neck full ROM Chest inspection of chest normal Resp normal respiratory effort, normal air movement, no use of accessory muscles and clear to auscultation bilaterally Cardio regular rate, regular rhythm, no murmurs and peripheral pulses 2+ throughout GI normal to inspection, nondistended, normoactive bowel sounds, soft to palpation, non-tender and non-distended Back/Spine normal ROM Extremity normal to inspection, full ROM and no pedal edema Skin no rashes or lesions noted Neuro oriented x3, moves all extremities and no focal motor deficits Speech: speech normal Motor Exam: strength 5/5 throughout Psych mental status grossly normal Results Lab / Micro Data 03/15/24 18:04 03/15/24 18:04 Labs: Laboratory Results - last 24 hr 03/15/24 18:04: WBC 6.8, RBC 3.91 L, Hgb 12.2, Hct 36.3 L, MCV 92.8, MCH 31.2, MCHC 33.6, RDW Std Deviation 43.1, RDW Coeff of Piper 12.7, Plt Count 225, MPV 9.8, Immature Gran % (Auto) 0.400, Neut % (Auto) 42.5 L, Lymph % (Auto) 42.1 H, [place] % (Auto) 12.1 H, Eos % (Auto) 2.5, Baso % (Auto) 0.4, Absolute Neuts (auto) 2.9, Absolute Lymphs (auto) 2.88, Nucleated RBC % 0, PT 14.9, INR 1.2, APTT 26.0 Imaging Radiology Impression Brain CT 03/15/24 17:48 IMPRESSION: No acute findings in the head/brain. Minimal chronic parenchymal changes. Electronically Signed: Charlene Bazan MD at 18:05 EST , ADDENDUM: 03/15/24 1813 IMPRESSION: No acute findings in the head/brain. Minimal chronic parenchymal changes. N.B. : The above Results were Read Back by Charlene Bazan MD to Reagan Hayes MD, and understanding confirmed on 03/15/2024 18:06:55 (ET). Electronically Signed: Charlene Bazan MD at 18:05 EST Reading Location ID and State: [facility] / [place] Tel , Service support , Head/Neck CTA 03/15/24 17:50 IMPRESSION: No acute findings in the arteries of the head and neck. No large vessel occlusion. Mild plaque of the bilateral cervical ICAs, no significant stenosis. Mild calcifications of intracranial ICAs, no significant stenosis. N.B. : The above Results were Read Back by Charlene Bazan MD to Reagan Hayes DO, and understanding confirmed on 03/15/2024 18:25:55 (ET). Electronically Signed: Charlene Bazan MD at 18:29 EST , Assessment & Plan Assessment/Plan (1) Paresthesias: PLAN: Plan Patient is a 73-year-old female [facility] with strokelike symptoms. 1. Strokelike symptoms ? Admit under observation status to PCU. Teleneurology consulted. PT/OT/case management consulted. Orders placed per stroke protocol order set. Lipid panel and A1c ordered. Will start aspirin 81 mg daily and atorvastatin 40 mg daily for now. MRI brain completed, read pending. Echo ordered. 2. Mild hypokalemia ? Potassium 3.4 on admit. Mag and Phos ordered. Replete as needed. 3. Hypertension ? Mildly hypertensive to the 140s on admit. Will hold home losartan and hydrochlorothiazide for permissive hypertension. 4. Hypothyroidism ? TSH ordered. Continue home Synthroid. 5. Class II obesity ? BMI 35 on admit. Encouraged lifestyle modifications. Complicates hospital course, care and prognosis. DVT prophylaxis: SCDs CODE STATUS: Full code, verified Expected disposition: Home, 1 to 2 days Total clinical time spent by myself addressing the patient's medical issues, reviewing all the data, and collaborating with patient's care team: 55 minutes. Charges/Coding Visit Charges Inpatient E&M: 59315 Init Hosp L2
--- NOTE | 2024-03-15 18:38 | MRI_ITS ---
We are attempting to reach an attending provider to discuss findings. An addendum with communication details will be sent when the communication is complete. EXAM: MR HEAD WITHOUT INTRAVENOUS CONTRAST CLINICAL INDICATION: r/o CVA, TEMPORARY LT SIDED WEAKNESS NUMBNESS IN FACE ARM TECHNIQUE: Multiplanar and multisequence MR images of the brain were obtained without intravenous contrast. COMPARISON: No relevant prior studies available. FINDINGS: BRAIN AND EXTRA-AXIAL SPACES: Mild cerebral volume loss. Minimal deep periventricular high signal white matter changes and a few slight high signal small foci in the subcortical white matter on T2-weighted inversion recovery images. No susceptibility artifacts. There are 3 tiny foci of mild increased signal intensity in the right centrum semiovale, and 2 separate foci in the adjacent right superior lateral frontal lobe steward matter. There are too small to confirm acute restricted diffusion on ADC map. No intra- or extra-axial hemorrhage. No evidence of acute infarct. No intracranial mass or mass effect. Posterior fossa structures are unremarkable. No hydrocephalus. Basal cisterns are patent. SELLA: Unremarkable. Normal sella turcica, pituitary gland, infundibular stalk, optic chiasm and hypothalamus. AUDITORY SYSTEM: Unremarkable. The internal auditory canals are patent. BONES/JOINTS: Unremarkable. No discrete lytic or blastic abnormalities. SINUSES: Unremarkable as visualized. Clear. MASTOID AIR CELLS: Unremarkable as visualized. Clear. ORBITS: Unremarkable as visualized. Both globes, extraocular muscles, optic nerves and retrobulbar fat appear unremarkable. VASCULATURE: Unremarkable as visualized. Normal flow voids in the major intracranial circulation. MRI/Brain without Contrast IMPRESSION: 1. 3 tiny foci of increased signal intensity on diffusion-weighted images in the right subcortical white matter and 2 separate adjacent right superior lateral frontal lobe steward matter foci. These measure 3-5 mm. They are too small to confirm to be foci of acute restricted diffusion on ADC map but they are possibly due to embolic phenomenon. 2. Correlate with any left-sided weakness. 3. Otherwise minimal chronic white matter changes and mild volume loss. Electronically Signed: Charlene Bazan MD at 21:44 EST ,
--- NOTE | 2024-03-15 18:38 | ECHOD_ITS ---
Reason For Study: TIA/CVA Procedure This was a 2D Doppler, Color Flow transthoracic echocardiogram. Exam performed portable in patient room. Left Ventricle Normal LV size. Left ventricular systolic function is normal. The left ventricular ejection fraction is 70 %. No regional wall motion abnormalities noted. Right Ventricle Normal RV size. Normal systolic function. Atria Normal left atrium. Normal right atrium. Bubble contrast study is negative for PFO/ASD. Mitral Valve There is mild mitral annular calcification. Tricuspid Valve Normal tricuspid valve. Aortic Valve Trisinus/trileaflet aortic valve. Pulmonic Valve Normal pulmonic valve. Great Vessels Normal aortic root. The pulmonary artery is normal size. Inferior vena cava collapse with respiration. Pericardium/Pleural No pericardial effusion. Medication Performed a rapid injection of agitated mix of 9 cc saline and 1cc air to assess for atrial septal defect. MMode/2D Measurements & Calculations LVIDd: 4.8 cm IVSd: 1.0 cm LVOT diam: 1.9 cm LVIDs: 2.3 cm LVPWd: 0.93 cm RVDd: 3.0 cm FS: 51.8 % LVOT area: 2.8 cm2 asc Aorta Diam: 3.5 cm LAV(MOD-bp): 34.2 ml LVAd ap4: 17.6 cm2 LAV(MOD-bp) Indexed: 17.6 ml/m2 LVLd ap4: 6.7 cm LAV(MOD-sp2): 35.4 ml EDV(MOD-sp4): 37.9 ml LAV(MOD-sp4): 32.2 ml EDV(sp4-el): 39.0 ml LVAs ap4: 8.1 cm2 LVLs ap4: 5.2 cm ESV(MOD-sp4): 10.8 ml ESV(sp4-el): 10.8 ml EF(MOD-sp4): 71.4 % EF(sp4-el): 72.4 % LVAd ap2: 14.9 cm2 SV(MOD-sp4): 27.1 ml SV(MOD-sp2): 21.5 ml LVLd ap2: 6.3 cm SI(MOD-sp4): 13.9 ml/m2 SI(MOD-sp2): 11.1 ml/m2 EDV(MOD-sp2): 29.6 ml EDV(sp2-el): 29.9 ml LVAs ap2: 7.0 cm2 LVLs ap2: 5.0 cm ESV(MOD-sp2): 8.1 ml ESV(sp2-el): 8.3 ml EF(MOD-sp2): 72.7 % SV(sp4-el): 28.3 ml Ao sinus diam: 3.[address] Junction: 3.1 cm LA dimension(2D): 3.7 cm LA A4 area: 14.4 cm2 RA A4 area: 10.6 cm2 TAPSE: 2.1 cm Time Measurements MV dec time: 0.40 sec Doppler Measurements & Calculations MV E max shyam: 108.9 cm/sec Lat Peak E' Shyam: 6.7 cm/sec Med Peak E' Shyam: 6.4 cm/sec MV A max shyam: 154.5 cm/sec E/E' lat: 16.2 E/E' med: 17.0 MV E/A: 0.71 MV dec slope: 273.8 cm/sec2 Ao V2 max: 157.9 cm/sec LV V1 max: 137.9 cm/sec Ao max P.0 mmHg LV V1 max P.6 mmHg Ao V2 mean: 107.8 cm/sec LV V1 mean P.4 mmHg Ao mean P.3 mmHg LV V1 mean: 99.9 cm/sec Ao V2 VTI: 32.2 cm LV V1 VTI: 29.1 cm AV (velocity ratio): 0.90 THADDEUS(I,D): 2.5 cm2 THADDEUS(V,D): 2.4 cm2 SV(LVOT): 80.1 ml PA V2 max: 98.0 cm/sec TR max shyam: 167.9 cm/sec TR max P.3 mmHg ECHO/Echo Complete Interpretation Summary Normal LV size. Left ventricular systolic function is normal. The left ventricular ejection fraction is 70 %. Bubble contrast study is negative for PFO/ASD. There is mild mitral annular calcification. Ordering Physician: Reno Hagan Referring Physician: Bryan Barboza MD Performed By: Myla Escobar RDCS and Student
--- NOTE | 2024-03-15 18:40 | RAD_ITS ---
EXAM: XR CHEST, 1 VIEW CLINICAL INDICATION: Neuro deficit, acute, stroke suspected TECHNIQUE: Frontal view of the chest. COMPARISON: . February 17, 2023. FINDINGS: LUNGS AND PLEURAL SPACES: Slightly increased interstitial markings in the lung bases are similar. No pneumothorax. No effusion. No suspicious infiltrates. HEART: Unremarkable. Cardiac silhouette not enlarged. MEDIASTINUM: Central airways and mediastinal contour are unremarkable. BONES/JOINTS: Surgical clips in the right axilla are again noted. Thoracic spondylosis again noted. No acute fracture. SOFT TISSUES: Unremarkable. RAD/Chest 1 View IMPRESSION: Stable chest. Electronically Signed: Charlene Bazan MD at 20:16 EST ,
[2024-03-15 18:49] LABS: Anion Gap 6 (5-15); BUN 21 mg/dL (7-18); BUN/Creat Ratio 28.5 RATIO (10-20); Calcium,Total 9.3 mg/dL (8.5-10.1); Chloride 105 mmol/L (98-107); Creatinine, Serum 0.74 mg/dL (0.55-1.02); EST Glomerular Filtration Rate 82 mL/min (>60); Est Glom Filt Rate - Afr Amer 100 mL/min (>60); Estimated Creatinine Clearance 67.07 ml/min; Glucose 81 mg/dL (74-106); Potassium 3.4 mmol/L (3.5-5.1); Sodium Level 139 mmol/L (136-145); Troponin-I HS 3 pg/mL (3.0-54.0)
[2024-03-15] MEDS: LORazepam 1 MG Tablet PO (19:04)
[2024-03-15 19:11] LABS: Hemoglobin A1c 5.2 % (3.8-5.6)
[2024-03-15] MEDS: Atorvastatin Calcium 40 MG Tablet PO (21:11)
[2024-03-15] MEDS: Potassium Chloride Oral Tablet 20 MEQ 40 MEQ PO (22:28)
[2024-03-15 22:35] LABS: Phosphorus 3.3 mg/dL (2.5-4.9)
--- NOTE | 2024-03-15 22:44 | PCM.PN.HOSP ---
Reason for Visit Reason for Visit: Diagnoses Paresthesia of skin (03/15/24) Subjective Subjective 10:44 PM spoke with tele neurologist regarding addendum to MRI showing 3 foci in the subcortical white matter of 3 to 5 mm into and steward matter on the right side. Teleneurologist instructed that there are no acute changes to management at this time and that to make sure patient is getting an echocardiogram in the morning and that they are taking aspirin Plavix and statin medication. Objective Data Objective Data Vital Signs: Vital Signs Temp Pulse Resp BP Pulse Ox O2 Del Method 97.2 F L 84 18 142/79 H 98 Room Air 03/15/24 20:22 03/15/24 20:22 03/15/24 20:22 03/15/24 20:22 03/15/24 20:22 03/15/24 20:22 Oxygen Delivery Method Room Air Weight: 202 lb 13.204 oz Body Mass Index (BMI) 35.9 Lab / Micro Data 03/15/24 18:04 03/15/24 18:04 Labs: Laboratory Results - last 24 hr 03/15/24 18:04: WBC 6.8, RBC 3.91 L, Hgb 12.2, Hct 36.3 L, MCV 92.8, MCH 31.2, MCHC 33.6, RDW Std Deviation 43.1, RDW Coeff of Piper 12.7, Plt Count 225, MPV 9.8, Immature Gran % (Auto) 0.400, Neut % (Auto) 42.5 L, Lymph % (Auto) 42.1 H, [place] % (Auto) 12.1 H, Eos % (Auto) 2.5, Baso % (Auto) 0.4, Absolute Neuts (auto) 2.9, Absolute Lymphs (auto) 2.88, Nucleated RBC % 0, PT 14.9, INR 1.2, APTT 26.0, Sodium 139, Potassium 3.4 L, Chloride 105, Carbon Dioxide 29.0, Anion Gap 6, BUN 21 H, Creatinine 0.74, Estim Creat Clear Calc 67.07, Est GFR (MDRD) Af Amer 100, Est GFR (MDRD) Non-Af 82, BUN/Creatinine Ratio 28.5 H, Glucose 81, Hemoglobin A1c 5.2, Calcium 9.3, Phosphorus 3.3, Magnesium 2.0, Troponin I High Sens 3, TSH 1.170 Radiography Diagnostic Testing: Radiology Impression Brain CT 03/15/24 17:48 IMPRESSION: No acute findings in the head/brain. Minimal chronic parenchymal changes. Electronically Signed: Charlene Bazan MD at 18:05 EST Reading Location ID and State: [facility] / [place] Tel , Service support , ADDENDUM: 03/15/24 1813 IMPRESSION: No acute findings in the head/brain. Minimal chronic parenchymal changes. N.B. : The above Results were Read Back by Charlene Bazan MD to Reagan Hayes MD, and understanding confirmed on 03/15/2024 18:06:55 (ET). Electronically Signed: Charlene Bazan MD at 18:05 EST Reading Location ID and State: [facility] / [place] Tel , Service support , Head/Neck CTA 03/15/24 17:50 IMPRESSION: No acute findings in the arteries of the head and neck. No large vessel occlusion. Mild plaque of the bilateral cervical ICAs, no significant stenosis. Mild calcifications of intracranial ICAs, no significant stenosis. N.B. : The above Results were Read Back by Charlene Bazan MD to Reagan Hayes DO, and understanding confirmed on 03/15/2024 18:25:55 (ET). Electronically Signed: Charlene Bazan MD at 18:29 EST Reading Location ID and State: [facility] / [place] Tel , Service support , ADDENDUM: 03/15/24 1836 IMPRESSION: No acute findings in the arteries of the head and neck. No large vessel occlusion. Mild plaque of the bilateral cervical ICAs, no significant stenosis. Mild calcifications of intracranial ICAs, no significant stenosis. N.B. : The above Results were Read Back by Charlene Bazan MD to Reagan Hayes DO, and understanding confirmed on 03/15/2024 18:25:55 (ET). Electronically Signed: Charlene Bazan MD at 18:29 EST , Brain MRI 03/15/24 18:38 IMPRESSION: 1. 3 tiny foci of increased signal intensity on diffusion-weighted images in the right subcortical white matter and 2 separate adjacent right superior lateral frontal lobe steward matter foci. These measure 3-5 mm. They are too small to confirm to be foci of acute restricted diffusion on ADC map but they are possibly due to embolic phenomenon. 2. Correlate with any left-sided weakness. 3. Otherwise minimal chronic white matter changes and mild volume loss. Electronically Signed: Charlene Bazan MD at 21:44 EST Reading Location ID and State: [id number] / [place] Tel , Service support , ADDENDUM: 03/15/24 2236 IMPRESSION: 1. 3 tiny foci of increased signal intensity on diffusion-weighted images in the right subcortical white matter and 2 separate adjacent right superior lateral frontal lobe steward matter foci. These measure 3-5 mm. They are too small to confirm to be foci of acute restricted diffusion on ADC map but they are possibly due to embolic phenomenon. 2. Correlate with any left-sided weakness. 3. Otherwise minimal chronic white matter changes and mild volume loss. N.B. : The above Results were Read Back by Charlene Bazan MD to adela lenz RN, and understanding confirmed on 03/15/2024 22:29:31 (ET). Electronically Signed: Charlene Bazan MD at 21:44 EST , Chest X-Ray 03/15/24 18:40 IMPRESSION: Stable chest. Electronically Signed: Charlene Bazan MD at 20:16 EST ,
[2024-03-16 00:20] VITALS: BP 121/65; PULSE 91; RESP 18; TEMP 36.8; O2SAT 95
[2024-03-16 04:18] VITALS: BP 133/74; PULSE 84; RESP 18; TEMP 36.2; O2SAT 94
[2024-03-16] MEDS: Levothyroxine 100 MCG Tablet PO (05:56)
[2024-03-16 06:49] LABS: Anion Gap 4 (5-15); BUN 17 mg/dL (7-18); BUN/Creat Ratio 25.1 RATIO (10-20); Calcium,Total 9.2 mg/dL (8.5-10.1); Chloride 113 mmol/L (98-107); Cholesterol 185 mg/dL (200); Creatinine, Serum 0.68 mg/dL (0.55-1.02); EST Glomerular Filtration Rate 91 mL/min (>60); Est Glom Filt Rate - Afr Amer 110 mL/min (>60); Estimated Creatinine Clearance 68.48 ml/min; Glucose 87 mg/dL (74-106); High Density Lipoprotein 47 mg/dL; Potassium 4.7 mmol/L (3.5-5.1); Sodium Level 140 mmol/L (136-145); Triglycerides 134 mg/dL; Very Low Density Lipoprotein 27 mg/dL (5-40)
[2024-03-16 07:40] VITALS: O2SAT 93
--- NOTE | 2024-03-16 09:27 | NURSING ---
Echo in progress
--- NOTE | 2024-03-16 09:42 | CASEMGMT ---
Social Work PHQ-9 completed, pt scored a 0. No indication of depression at this time. PREET Bhardwaj
[2024-03-16 09:52] VITALS: BP 140/73; PULSE 90; RESP 16; TEMP 36.6; O2SAT 97
[2024-03-16] MEDS: Clopidogrel Bisulfate 75 MG Tablet PO (09:59)
[2024-03-16] MEDS: Aspirin 81 MG TAB.CHEW PO (09:59)
[2024-03-16 10:18] LABS: Hematocrit 39.8 % (37-47); Mean Corp Hgb Conc 32.7 g/dL (32-36); Mean Corpuscular Hgb 30.4 pg (27.0-32.0); Mean Platelet Vol. 9.7 fl (6.2-12.0); Platelet Count 232 K/mm3 (150-450); RBC Distribution Width CV 12.5 % (11.6-14.6); RBC Distribution Width SD 43.1 fl (35.1-43.9); Red Blood Count 4.28 M/mm3 (4.2-5.4); White Blood Count 5.5 K/mm3 (4.4-11.0)
--- NOTE | 2024-03-16 12:42 | STROKE.CONS ---
Assessment and Plan: Stroke Assessment/Plan DIEGO RINALDI, is a 73 F with HTN and thyroid issues who presents with transient left sided numbness that started suddenly while at home at 5pm on 03/15/24 which lasted about 30min and went to OSH to get evaluated. By the time she arrived she was back to normal. This has never happened before. CTH/CTA neg. MRI brain showing small punctate diffusion restricting lesions in right hemisphere which appear to represent small embolic acute ischemic strokes. a1c 5.2, ldl 111. Presentation is secondary to acute ischemic right frontal parietal strokes which are cryptogenic at this time. Plan: - ASA 81mg - Plavix 75mg only for 21d - High intensity statin - Cv risk factor optimization - f/u with neuro after dc - TTE pending, if neg will need 30d event monitor at dc - No further work up other than above. Please call me for any questions or concerns. Can be dcd if tte is neg with 30d event monitor from stroke perspective. HPI Consult Data Date of Consult: 03/16/24 HPI Narrative HPI Narrative: DIEGO RINALDI, is a 73 F with HTN and thyroid issues who presents with transient left sided numbness that started suddenly while at home at 5pm on 03/15/24 which lasted about 30min and went to OSH to get evaluated. By the time she arrived she was back to normal. This has never happened before. CTH/CTA neg. MRI brain showing small punctate diffusion restricting lesions in right hemisphere which appear to represent small embolic acute ischemic strokes. a1c 5.2, ldl 111. Presentation is secondary to acute ischemic right frontal parietal strokes which are cryptogenic at this time. [facility] Medical History (Updated 03/15/24 @ 18:[address] Reagan Hayes, DO) Melanoma Lower extremity pain Home Medications ?Medication ?Instructions ?Recorded ?Last Taken ?Type levothyroxine 100 mcg capsule 100 mcg PO DAILY 02/08/21 Unknown History losartan 50 mg-hydrochlorothiazide 1 tab PO DAILY 02/08/21 Unknown History 12.5 mg tablet Allergy/AdvReac Type Severity Reaction Status Date / Time Sulfa (Sulfonamide Allergy unknown Verified 02/17/23 18:14 Antibiotics) Social History Smoking Status: Never smoker Vital Signs Vital Signs Vital Signs: 03/15/24 17:48 03/15/24 18:03 03/15/24 18:05 Temperature 98.9 F 97.5 F L Temperature Source Oral Oral Pulse Rate 81 Respiratory Rate 20 H Respiratory Effort Respiratory Depth Blood Pressure 142/73 H Blood Pressure Mean 96 Blood Pressure Source Blood Pressure Position Blood Pressure Location Pulse Ox 96 Oxygen Delivery Method Room Air Room Air 03/15/24 19:00 03/15/24 19:30 03/15/24 20:00 Temperature 98 F Temperature Source Pulse Rate 83 80 85 Respiratory Rate 15 16 16 Respiratory Effort Respiratory Depth Blood Pressure 137/81 H 141/75 H 159/97 H Blood Pressure Mean 99 97 117 Blood Pressure Source Blood Pressure Position Blood Pressure Location Pulse Ox 98 98 97 Oxygen Delivery Method 03/15/24 20:22 03/15/24 22:00 03/15/24 22:46 Temperature 97.2 F L Temperature Source Temporal Pulse Rate 84 Respiratory Rate 18 Respiratory Effort Normal Non-Labored Respiratory Depth Normal Blood Pressure 142/79 H Blood Pressure Mean 100 Blood Pressure Source Monitor Blood Pressure Position Supine Blood Pressure Location Left Arm Pulse Ox 98 92 Oxygen Delivery Method Room Air Room Air Room Air 03/16/24 00:20 03/16/24 04:18 03/16/24 07:40 Temperature 98.2 F 97.2 F L Temperature Source Temporal Temporal Pulse Rate 91 84 Respiratory Rate 18 18 Respiratory Effort Respiratory Depth Blood Pressure 121/65 H 133/74 H Blood Pressure Mean 83 93 Blood Pressure Source Monitor Monitor Blood Pressure Position Semi-Fowlers Semi-Fowlers Blood Pressure Location Left Arm Right Arm Pulse Ox 95 94 93 Oxygen Delivery Method Room Air Room Air Room Air 03/16/24 09:52 Temperature 97.9 F Temperature Source Oral Pulse Rate 90 Respiratory Rate 16 Respiratory Effort Respiratory Depth Blood Pressure 140/73 H Blood Pressure Mean 95 Blood Pressure Source Monitor Blood Pressure Position Semi-Fowlers Blood Pressure Location Left Arm Pulse Ox 97 Oxygen Delivery Method Room Air Weight Weight: 92 kg Body Mass Index (BMI) 35.9 NIHSS NIHSS Nursing Documentation NIHSS Nursing Documentation: NIHSS: Ischemic Stroke/TIA Start: 03/15/24 20:22 Text: For PCU Patients: NIH and Neuro Check every 4 Status: Active hours, PRN and with change in RN caregiver. Freq: [id number] Protocol: Activity Type Activity Date Activity User E-sign Co-sign Detail Recorded Client Recorded Date Recorded By Document 03/16/24 04:18 [id number] 03/16/24 04:18 03/16/24 04:18 NIH Stroke Scale [NIHSS] A score of 0 is normal or asymptomatic . Total possible score is 42. Inpatient: RN or Physician to activate a stroke alert for onset of new stroke symptoms or with NIHSS increase >/= 3 points. Following change in neurological status, NIHSS will be performed per physician order or more frequently PRN. -1a. Level of Consciousness Alert; keenly responsive -1b. LOC Questions Answers BOTH questions correctly. -1c. LOC Commands Performs both tasks correctly . -2. Best Gaze Normal -3. Visual No visual loss -4. Facial Palsy Normal symmetrical movements -5a. Left Arm No drift; arm holds 90 (or 45 ) degrees for full 10 seconds -5b. Right Arm No drift; arm holds 90 (or 45 ) degrees for full 10 seconds -6a. Left Leg No drift; leg holds 30-degree position for full 5 seconds -6b. Right Leg No drift; leg holds 30-degree position for full 5 seconds -7. Limb Ataxia Absent -8. Sensory Normal; no sensory loss -9. Best Language No aphasia; normal -10. Dysarthria Normal -11. Extinction and Inattention No abnormality -Total 0 Query Text:A score of 0 is normal or asymptomatic. Total possible score is 42 . ED: Notify Physician for NIHSS increase by > / = 3 points. Inpatient: RN or Physician to activate a stroke alert for NIHSS increase of > / = 3 points. Physical Exam Narrative - General: NAD, pleasant, cooperative, well nourished, well developed - Head/Eyes: Atraumatic, normocephalic, clear cornea, normal sclera/conjunctive - Neuro: ? Mental Status: AAOX4 & following simple commands. ? Speech: Clear and fluent with good repetition, comprehension, & naming. No aphasia or dysarthria ? CN II: Visual lockhart are full to confrontation. ? CN III, IV, : EOMI, no gaze preference, no nystagmus, no ptosis ? CN V: Facial sensation is intact to light touch throughout. ? CN VII: Face is symmetric with normal eye closure and smile. ? CN VII: Hearing is grossly normal to conversational speech. ? CN IX, X: Palate elevates symmetrically and no uvula deviation ? CN XI: Head turning, and shoulder shrug are intact. ? CN XII: Tongue is midline with normal movements and no atrophy. ? Motor: Able to sustain all limbs ? Sensation: Normal to light touch bilaterally. ? Coordination: Normal FTN & HTS. No abn movements seen. Lab / Micro Data 03/16/24 10:05 03/16/24 05:31 Labs: Laboratory Results - last 24 hr 03/15/24 18:04: WBC 6.8, RBC 3.91 L, Hgb 12.2, Hct 36.3 L, MCV 92.8, MCH 31.2, MCHC 33.6, RDW Std Deviation 43.1, RDW Coeff of Piper 12.7, Plt Count 225, MPV 9.8, Immature Gran % (Auto) 0.400, Neut % (Auto) 42.5 L, Lymph % (Auto) 42.1 H, Harlan % (Auto) 12.1 H, Eos % (Auto) 2.5, Baso % (Auto) 0.4, Absolute Neuts (auto) 2.9, Absolute Lymphs (auto) 2.88, Nucleated RBC % 0, PT 14.9, INR 1.2, APTT 26.0, Sodium 139, Potassium 3.4 L, Chloride 105, Carbon Dioxide 29.0, Anion Gap 6, BUN 21 H, Creatinine 0.74, Estim Creat Clear Calc 67.07, Est GFR (MDRD) Af Amer 100, Est GFR (MDRD) Non-Af 82, BUN/Creatinine Ratio 28.5 H, Glucose 81, Hemoglobin A1c 5.2, Calcium 9.3, Phosphorus 3.3, Magnesium 2.0, Troponin I High Sens 3, TSH 1.170 03/16/24 05:31: Sodium 140, Potassium 4.7, Chloride 113 H, Carbon Dioxide 24.0, Anion Gap 4 L, BUN 17, Creatinine 0.68, Estim Creat Clear Calc 68.48, Est GFR (MDRD) Af Amer 110, Est GFR (MDRD) Non-Af 91, BUN/Creatinine Ratio 25.1 H, Glucose 87, Calcium 9.2, Triglycerides 134, Cholesterol 185, LDL Cholesterol 111, VLDL Cholesterol 27, HDL Cholesterol 47 03/16/24 07:54: WBC Cancelled, Corrected WBC Cancelled, RBC Cancelled, Hgb Cancelled, Hct Cancelled, MCV Cancelled, MCH Cancelled, MCHC Cancelled, RDW Std Deviation Cancelled, RDW Coeff of Piper Cancelled, Plt Count Cancelled, MPV Cancelled, Diff Path Review Cancelled 03/16/24 10:05: WBC 5.5, RBC 4.28, Hgb 13.0, Hct 39.8, MCV 93.0, MCH 30.4, MCHC 32.7, RDW Std Deviation 43.1, RDW Coeff of Piper 12.5, Plt Count 232, MPV 9.7 Imaging Radiology Impression Brain CT 03/15/24 17:48 IMPRESSION: No acute findings in the head/brain. Minimal chronic parenchymal changes. Electronically Signed: Charlene Bazan MD at 18:05 EST Reading Location ID and State: [facility] / [place] Tel , Service support , ADDENDUM: 03/15/24 1813 IMPRESSION: No acute findings in the head/brain. Minimal chronic parenchymal changes. N.B. : The above Results were Read Back by Charlene Bazan MD to Reagan Hayes MD, and understanding confirmed on 03/15/2024 18:06:55 (ET). Electronically Signed: Charlene Bazan MD at 18:05 EST Reading Location ID and State: [facility] / [place] Tel , Service support , Head/Neck CTA 03/15/24 17:50 IMPRESSION: No acute findings in the arteries of the head and neck. No large vessel occlusion. Mild plaque of the bilateral cervical ICAs, no significant stenosis. Mild calcifications of intracranial ICAs, no significant stenosis. N.B. : The above Results were Read Back by Charlene Bazan MD to Reagan Hayes DO, and understanding confirmed on 03/15/2024 18:25:55 (ET). Electronically Signed: Charlene Bazan MD at 18:29 EST , ADDENDUM: 03/15/24 1836 IMPRESSION: No acute findings in the arteries of the head and neck. No large vessel occlusion. Mild plaque of the bilateral cervical ICAs, no significant stenosis. Mild calcifications of intracranial ICAs, no significant stenosis. N.B. : The above Results were Read Back by Charlene Bazan MD to Reagan Hayes DO, and understanding confirmed on 03/15/2024 18:25:55 (ET). Electronically Signed: Charlene Bazan MD at 18:29 EST Reading Location ID and State: [facility] / [place] Tel , Service support , Brain MRI 03/15/24 18:38 IMPRESSION: 1. 3 tiny foci of increased signal intensity on diffusion-weighted images in the right subcortical white matter and 2 separate adjacent right superior lateral frontal lobe steward matter foci. These measure 3-5 mm. They are too small to confirm to be foci of acute restricted diffusion on ADC map but they are possibly due to embolic phenomenon. 2. Correlate with any left-sided weakness. 3. Otherwise minimal chronic white matter changes and mild volume loss. Electronically Signed: Charlene Bazan MD at 21:44 EST , ADDENDUM: 03/15/24 2236 IMPRESSION: 1. 3 tiny foci of increased signal intensity on diffusion-weighted images in the right subcortical white matter and 2 separate adjacent right superior lateral frontal lobe steward matter foci. These measure 3-5 mm. They are too small to confirm to be foci of acute restricted diffusion on ADC map but they are possibly due to embolic phenomenon. 2. Correlate with any left-sided weakness. 3. Otherwise minimal chronic white matter changes and mild volume loss. N.B. : The above Results were Read Back by Charlene Bazan MD to adela lenz RN, and understanding confirmed on 03/15/2024 22:29:31 (ET). Electronically Signed: Charlene Bazan MD at 21:44 EST , Chest X-Ray 03/15/24 18:40 IMPRESSION: Stable chest. Electronically Signed: Charlene Bazan MD at 20:16 EST , Active Medications Active Medications Active Medications: Current Medications Generic Name Dose Route Start Last Admin Trade Name Freq PRN Reason Stop Dose Admin Acetaminophen 650 mg 03/15/24 20:22 Acetaminophen 325 Mg Tablet PO Q6H PRN PRN Pain 1-10 Or Fever>100.7 Aspirin 81 mg 03/16/24 08:00 03/16/24 09:59 Aspirin 81 Mg Tab.Chew PO 81 mg BREAKFAST SHON Administration Atorvastatin Calcium 40 mg 03/15/24 22:00 03/15/24 21:11 Atorvastatin Calcium 40 Mg Tablet PO 40 mg QHS SHON Administration Clopidogrel Bisulfate 75 mg 03/16/24 10:00 03/16/24 09:59 Clopidogrel Bisulfate 75 Mg Tablet PO 75 mg DAILY SHON Administration Hydralazine HCl 5 mg 03/15/24 20:22 Hydralazine 20 Mg/Ml Vial IV 03/16/24 20:22 Q30M PRN maintain BP parameters with HR <60 Sodium Chloride 500 mls @ 15 mls/hr 03/15/24 20:39 IV .[id number] PRN Saline Flush Sodium Chloride 500 mls @ 15 mls/hr 03/15/24 20:39 IV .[id number] PRN Additional IVPB Infusion Labetalol HCl 20 mg 03/15/24 17:46 Labetalol (Prefilled) 20 Mg/4 Ml Vial IV 03/16/24 17:46 X1 PRN BLOOD PRESSURE Labetalol HCl 10 - 20 mg 03/15/24 20:22 Labetalol (Prefilled) 20 Mg/4 Ml Vial IV 03/16/24 20:22 Q10M PRN PRN maintain BP parameters with HR >/=60 Levothyroxine Sodium 100 mcg 03/16/24 06:00 03/16/24 05:56 Levothyroxine 100 Mcg Tablet PO 100 mcg DAILY@0600 SHON Administration Ondansetron HCl 4 mg 03/15/24 20:22 Ondansetron 4 Mg/2 Ml Vial IV Q8H PRN PRN NAUSEA/VOMITING Sodium Chloride 10 - 40 ml 03/15/24 20:39 0.9% Saline Lock 10 Ml Syringe IV UD PRN SALINE FLUSH
--- NOTE | 2024-03-16 15:14 | PCM.DC.SUM ---
Providers Date of Admission: 03/15/24 Date of Discharge: 03/16/24 Primary Care Physician: Dr. Bryan Barboza MD Consultations 03/15/24 20:22 Consult: Tele-Neurology Routine Consulting Provider: [facility] Reason for Consult: Acute Ischemic Stroke/TIA EMERGENT Consult: No MD Notified: Yes Date Notified: 03/15/24 Time Notified: 21:29 Method of Notification: Answering Service Nursing Unit Staff Notify [facility] of Tele-Neurology Consult: Yes Reason For Visit: STROKELIKE SYMPTOMS Diagnosis Discharge Diagnosis (1) Paresthesias: Status: Acute Code(s): R20.2 - Paresthesia of skin Medications at Discharge Home Medications levothyroxine 100 mcg capsule 100 mcg PO DAILY 02/08/21 losartan 50 mg-hydrochlorothiazide 12.5 mg tablet 1 tab PO DAILY 02/08/21 aspirin 81 mg chewable tablet 81 mg PO BREAKFAST #0 tabs 03/16/24 atorvastatin 40 mg tablet 40 mg PO QHS #30 tabs 03/16/24 clopidogrel 75 mg tablet 75 mg PO DAILY #21 tabs 03/16/24 Hospital Course Operations None Procedures 2-D Echocardiogram, EKG and - (MRI brain/CTA head and neck/CT brain/CXR) Summary of Care Provided Minutes Spent on Discharge: 30 Hospital Course: Mrs. Kline is a 73-year-old white female with a past medical history of hypertension and hypothyroidism who presented to emergency department at [facility] on 03/15/2020 for with acute onset of paresthesias in her left face, left arm, and left leg that started about 5 PM on the day of presentation. Patient reported she had never had anything like this previously and had no history of stroke. She denied having any motor issues and indicated this was only sensory. Symptoms lasted for about 20 minutes then resolved. She did not have symptoms at all while hospitalized in the emergency department or otherwise. NIH is were 0 throughout her hospital stay. Stroke alert was called on arrival given her symptoms. CT of the brain was unremarkable and CTA of the head and neck showed mild plaque in the bilateral cervical carotid arteries with mild calcification of the intracranial internal carotid arteries but no significant stenosis. Teleneurology was consulted and recommended admission for further workup. Vital signs on presentation showed temperature of 98.9, heart rate was 81, respiratory rate was 20 and blood pressure was 142/73 with a sat of 96% on room air. CBC was unremarkable. Coags were unremarkable. Chemistry panel showed only mild hypokalemia with potassium of 3.4 which was replaced and was otherwise unremarkable. Serum glucose was 81. Hemoglobin A1c was obtained given the stroke protocol and was found to be 5.2. Troponin was normal. Lipid panel showed a total cholesterol of 185 with an LDL of 111 and an HDL of 47. Triglycerides were 134. TSH was normal. She was admitted to the telemetry floor and stroke order set was utilized. Echocardiogram was negative for PFO/ASD and demonstrated EF of 70% with no other significant abnormalities. MRI showed 3 small foci of increased signal intensity on diffusion weighted images in the right subcortical white matter with 2 separate adjacent right superior lateral frontal lobe steward matter foci that were concerning for embolic phenomenon. Neurology evaluated the patient and recommended continuing aspirin and Plavix and statin, getting an event monitor at this time since these are currently considered cryptogenic strokes without another source and having her follow-up as an outpatient with neurology. Prescriptions for atorvastatin and clopidogrel were sent to local pharmacy. She is to continue Plavix for 21 days and then stop but continue her aspirin indefinitely. Blood pressure seem to be fairly well-controlled on her home medication so I will recommend continued outpatient follow-up with regards to her blood pressure monitoring however goal blood pressure is less than 130/80. Patient was discharged home in stable condition on 03/16/2024 and instructed follow-up with her primary care physician within the next 2 to 4 weeks and her neurology within the next month up as they are available. Event monitor was written for and should be sent to her house for continued follow-up. This was discussed with the patient prior to discharge. Discharge diagnoses: Stroke Hyperlipidemia Hypertension Hypothyroidism Hypokalemia-resolved Physical Exam Const alert, oriented x3, no apparent distress, no limitations, healthy appearing and well nourished Constitutional Narrative: Obese, older, white female, sitting in bed, family at bedside, patient appears comfortable, nontoxic, watching television General Appearance: cooperative, comfortable, well kempt and well developed Orientation / Consciousness: awake, oriented to person, oriented to place and oriented to time Exam Limitations: no limitations Nutritional Appearance: obese HEENT normocephalic, head/scalp atraumatic, hearing grossly normal bilaterally and moist oral mucous membranes HEENT Narrative: Mallampati 3, no thrush Resp normal respiratory effort, no retractions, no use of accessory muscles and clear to auscultation bilaterally Auscultation: Negative for rales, rhonchi or wheezes Cardio regular rate, regular rhythm, S1 normal heart sound, S2 normal heart sound, no murmurs, no rub, no gallops and no clicks GI normal to inspection, nondistended, normoactive bowel sounds, soft to palpation and non-tender Extremity no clubbing, cyanosis or edema Extremity Narrative: Pedal and radial pulses are 2+ Neuro oriented x3, CN's II-XII intact bilaterally, moves all extremities and no focal motor deficits Speech: speech normal Psych affect normal Psych Narrative: Very pleasant, interacts appropriately Weight / BMI Weight Weight: 92 kg Body Mass Index (BMI) 35.9 ABG / Lab / Microbiology Data 03/16/24 10:05 03/16/24 05:31 Laboratory: Laboratory Results - last 24 hr 03/15/24 18:04: WBC 6.8, RBC 3.91 L, Hgb 12.2, Hct 36.3 L, MCV 92.8, MCH 31.2, MCHC 33.6, RDW Std Deviation 43.1, RDW Coeff of Piper 12.7, Plt Count 225, MPV 9.8, Immature Gran % (Auto) 0.400, Neut % (Auto) 42.5 L, Lymph % (Auto) 42.1 H, [place] % (Auto) 12.1 H, Eos % (Auto) 2.5, Baso % (Auto) 0.4, Absolute Neuts (auto) 2.9, Absolute Lymphs (auto) 2.88, Nucleated RBC % 0, PT 14.9, INR 1.2, APTT 26.0, Sodium 139, Potassium 3.4 L, Chloride 105, Carbon Dioxide 29.0, Anion Gap 6, BUN 21 H, Creatinine 0.74, Estim Creat Clear Calc 67.07, Est GFR (MDRD) Af Amer 100, Est GFR (MDRD) Non-Af 82, BUN/Creatinine Ratio 28.5 H, Glucose 81, Hemoglobin A1c 5.2, Calcium 9.3, Phosphorus 3.3, Magnesium 2.0, Troponin I High Sens 3, TSH 1.170 03/16/24 05:31: Sodium 140, Potassium 4.7, Chloride 113 H, Carbon Dioxide 24.0, Anion Gap 4 L, BUN 17, Creatinine 0.68, Estim Creat Clear Calc 68.48, Est GFR (MDRD) Af Amer 110, Est GFR (MDRD) Non-Af 91, BUN/Creatinine Ratio 25.1 H, Glucose 87, Calcium 9.2, Triglycerides 134, Cholesterol 185, LDL Cholesterol 111, VLDL Cholesterol 27, HDL Cholesterol 47 03/16/24 07:54: WBC Cancelled, Corrected WBC Cancelled, RBC Cancelled, Hgb Cancelled, Hct Cancelled, MCV Cancelled, MCH Cancelled, MCHC Cancelled, RDW Std Deviation Cancelled, RDW Coeff of Piper Cancelled, Plt Count Cancelled, MPV Cancelled, Diff Path Review Cancelled 03/16/24 10:05: WBC 5.5, RBC 4.28, Hgb 13.0, Hct 39.8, MCV 93.0, MCH 30.4, MCHC 32.7, RDW Std Deviation 43.1, RDW Coeff of Piper 12.5, Plt Count 232, MPV 9.7 Radiography Diagnostic Testing: Radiology Impression Brain CT 03/15/24 17:48 IMPRESSION: No acute findings in the head/brain. Minimal chronic parenchymal changes. Electronically Signed: Charlene Bazan MD at 18:05 EST , ADDENDUM: 03/15/24 1813 IMPRESSION: No acute findings in the head/brain. Minimal chronic parenchymal changes. N.B. : The above Results were Read Back by Charlene Bazan MD to Reagan Hayes MD, and understanding confirmed on 03/15/2024 18:06:55 (ET). Electronically Signed: Charlene Bazan MD at 18:05 EST , Head/Neck CTA 03/15/24 17:50 IMPRESSION: No acute findings in the arteries of the head and neck. No large vessel occlusion. Mild plaque of the bilateral cervical ICAs, no significant stenosis. Mild calcifications of intracranial ICAs, no significant stenosis. N.B. : The above Results were Read Back by Charlene Bazan MD to Reagan Hayes DO, and understanding confirmed on 03/15/2024 18:25:55 (ET). Electronically Signed: Charlene Bazan MD at 18:29 EST , ADDENDUM: 03/15/24 1836 IMPRESSION: No acute findings in the arteries of the head and neck. No large vessel occlusion. Mild plaque of the bilateral cervical ICAs, no significant stenosis. Mild calcifications of intracranial ICAs, no significant stenosis. N.B. : The above Results were Read Back by Charlene Bazan MD to Reagan Hayes DO, and understanding confirmed on 03/15/2024 18:25:55 (ET). Electronically Signed: Charlene Bazan MD at 18:29 EST , Brain MRI 03/15/24 18:38 IMPRESSION: 1. 3 tiny foci of increased signal intensity on diffusion-weighted images in the right subcortical white matter and 2 separate adjacent right superior lateral frontal lobe steward matter foci. These measure 3-5 mm. They are too small to confirm to be foci of acute restricted diffusion on ADC map but they are possibly due to embolic phenomenon. 2. Correlate with any left-sided weakness. 3. Otherwise minimal chronic white matter changes and mild volume loss. Electronically Signed: Charlene Bazan MD at 21:44 EST , ADDENDUM: 03/15/24 2236 IMPRESSION: 1. 3 tiny foci of increased signal intensity on diffusion-weighted images in the right subcortical white matter and 2 separate adjacent right superior lateral frontal lobe steward matter foci. These measure 3-5 mm. They are too small to confirm to be foci of acute restricted diffusion on ADC map but they are possibly due to embolic phenomenon. 2. Correlate with any left-sided weakness. 3. Otherwise minimal chronic white matter changes and mild volume loss. N.B. : The above Results were Read Back by Charlene Bazan MD to adela lenz RN, and understanding confirmed on 03/15/2024 22:29:31 (ET). Electronically Signed: Charlene Bazan MD at 21:44 EST , Echocardiogram 03/15/24 18:38 Interpretation Summary Normal LV size. Left ventricular systolic function is normal. The left ventricular ejection fraction is 70 %. Bubble contrast study is negative for PFO/ASD. There is mild mitral annular calcification. Ordering Physician: Reno Hagan Referring Physician: Bryan Barboza MD Performed By: Myla Escobar RDCS and Student Chest X-Ray 03/15/24 18:40 IMPRESSION: Stable chest. Electronically Signed: Charlene Bazan MD at 20:16 EST , D/C Instructions Discharge Diet: Low fat / Low cholesterol DC O2, CPAP, BIPAP Needs Additional Home O2 Discharge instructions: No DC home with Oxygen: No Meaningful Use Info Meaningful Use Meaningful Use Diagnoses (Choose all that apply): Ischemic CVA CVA Therapy Assessed for PT,OT and/or ST?: Yes Ischemic Stroke Antithrombotic order at d/c?: Yes Dx of Atrial fib/flutter?: No Anticoagulant at discharge?: No Reason anticoagulant not ordered: Treatment not Indicated Statin Dosing Therapy Reference: STATIN DOSE THERAPY REFERENCE: * Patients > 75 years receive moderate or high dose statin therapy. * Patients 75 years or YOUNGER should receive HIGH intensity statin dose unless contraindicated. You will be required to document reason for non-treatment if statin daily dose does not meet guidelines. HIGH DOSE STATIN THERAPY DAILY Atorvastatin > than or = to 40 mg Rosuvastatin > than or = to 20 mg Amlodipine + Atorvastatin > than or = to 2.5/40 mg Ezetimibe + Simvastatin 10/80 mg Simvastatin 80mg Statins at discharge?: Yes If patient is 75 or younger, pt will be discharged on HIGH intensity statin.: Yes Primary Dx Acute Ischemic CVA?: Yes IV thrombolytic ordered during stay?: No Reason IV thrombolytic not ordered: Procedure not Indicated Discharge Plan Admission Admit Date/Time: 03/15/24 18:35 Primary Reason for Your Visit: L sided tingling and numbness Attending Provider: No Cazares Primary Care Provider: Bryan Braboza Consulting Providers: Marty Umaña; Leida Jones; Maddie Woody; Taniya Boss; Ana Pinto; Italo Zuniga; Dalila Ramon; Noman Montelongo; Daniel Benton; Ismael Aguirre; Viola Hicks; Rui Licea; Molly Lee; Nayeli Anderson; Allegra Dietz; Edin Edmonds; Austen Hill; Solitario Blair; Allyn Cazares; Chema Oates; Reno Hagan Discharge Orders/Prescriptions Prescriptions: New atorvastatin 40 mg Tablet 40 mg PO QHS Qty: 30 2RF aspirin 81 mg Tablet,Chewable 81 mg PO BREAKFAST Qty: 0 0RF clopidogrel 75 mg Tablet 75 mg PO DAILY Qty: 21 0RF Continued losartan-hydrochlorothiazide 50-12.5 mg Tablet 1 tab PO DAILY levothyroxine 100 mcg Capsule 100 mcg PO DAILY Other Ambulatory Orders: 30 Day Event Recorder Preventi (Urgent) Timeframe: 1 Day Facility: [facility] - Location: Cardiovascular Services Ordered By: Dr. No Cazares Referrals / Follow Up: Bryan Barboza MD [Primary Care Provider] - Within 2 Weeks Kervin Quigley MD [Non-Staff -Ordering Privileges] - Within 1 Month (call to set up an appt) Disposition Disposition (needs filled in before D/C Order can be placed): Home, Self Care Charges/Coding Visit Charges Inpatient E&M: 11769 Disch Hosp
--- NOTE | 2024-03-16 15:35 | CASEMGMT ---
Patient has order for discharge. RN CM in to discuss discharge needs. Patient denies needs or help at discharge. Patient had no further questions or concerns.
--- NOTE | 2024-03-16 15:43 | PHA.DC.MC.R ---
Pharmacy [facility] has performed discharge medication reconciliation and counseling for this patient. The patient's discharge medication list was reviewed for discrepancies and discrepancies were resolved. The patient was counseled on the following discharge medications and changes in medications for homegoing were reviewed. The Reason for Use, instructions for use, and potential side effects were reviewed for all new medications. The patient's questions regarding all of their medications were answered. 1. Aspirin 81 mg PO daily 2. Atorvastatin 40 mg PO daily 3. Clopidogrel 75 mg PO daily x 21 days The patient was able to verbally demonstrate an understanding of their discharge medications. Medications at Discharge Home Medications levothyroxine 100 mcg capsule 100 mcg PO DAILY 02/08/21 losartan 50 mg-hydrochlorothiazide 12.5 mg tablet 1 tab PO DAILY 02/08/21 aspirin 81 mg chewable tablet 81 mg PO BREAKFAST #0 tabs 03/16/24 atorvastatin 40 mg tablet 40 mg PO QHS #30 tabs 03/16/24 clopidogrel 75 mg tablet 75 mg PO DAILY #21 tabs 03/16/24
[2024-03-16 16:10] VITALS: BP 149/88; PULSE 82; RESP 16; O2SAT 95
== END 2024-03-16 15:18 | disposition home or self-care (01) ==
LOC: ED 18:55 → PCU 19:39
PROVIDERS: Admitting Provider Hospitalist; Emergency Provider Emergency Medicine; PCP Family Medicine; Visit Provider Internal Medicine
DX: I63.9 Cerebral infarction, unspecified (principal); R20.2 Paresthesia of skin; I10 Essential (primary) hypertension; R20.0 Anesthesia of skin; E87.6 Hypokalemia; Z79.02 Long term (current) use of antithrombotics/antiplatelets; E78.5 Hyperlipidemia, unspecified; E03.9 Hypothyroidism, unspecified; Z79.890 Hormone replacement therapy; E66.812 Obesity, class 2; Z68.35 Body mass index [BMI] 35.0-35.9, adult; Z79.899 Other long term (current) drug therapy; I45.10 Unspecified right bundle-branch block; R94.31 Abnormal electrocardiogram [ECG] [EKG]
CPT/HCPCS: 36415; 70450; 70496; 70498; 70551; 71045; 80048; 80061; 83036; 83735; 84100; 84443; 84484; 85025; 85027; 85610; 85730; 93005; 93306; 94762; 97161; 97165; 97802; 99221; 99285; Q9957; Q9967; A4216; G0378

== ENCOUNTER 2024-03-27 16:56 | Emergency (ER) | payer MEDICARE, OTHER, SELFPAY ==
[2024-03-27] VITALS (8 sets, daily range): BP systolic 128–151; BP diastolic 72–98; PULSE 66–116; RESP 16–26; TEMP 36.5–36.8; O2SAT 96–100; BMI 39.9
--- NOTE | 2024-03-27 17:11 | RAD_ITS ---
EXAM: XR CHEST, 1 VIEW CLINICAL INDICATION: chest pain TECHNIQUE: Frontal view of the chest. COMPARISON: March 15, 2024. February 17, 2023. FINDINGS: LUNGS AND PLEURAL SPACES: Unremarkable. No consolidation or edema. No pneumothorax. No effusion. HEART: Stable upper limits of normal heart. MEDIASTINUM: Central airways and mediastinal contour are unremarkable. BONES/JOINTS: Minimal dextroscoliosis of the midthoracic spine again noted. No acute fracture. SOFT TISSUES: Surgical clips in the right axilla are again noted. TUBES, LINES AND DEVICES: New battery type device projecting over the aortic arch and descending thoracic aorta. RAD/Chest 1 View (Portable) IMPRESSION: Battery type device projecting over the left chest. Otherwise stable exam. Electronically Signed: Charlene Bazan MD at 18:31 EST ,
--- NOTE | 2024-03-27 17:11 | EKG12_ITS ---
Test Reason : SOB/CP Blood Pressure : */* mmHG Vent. Rate : 103 BPM Atrial Rate : 103 BPM P-R Int : 146 ms QRS Dur : 134 ms QT Int : 380 ms P-R-T Axes : 40 17 18 degrees QTcB Int : 497 ms Sinus tachycardia Right bundle branch block Abnormal ECG Confirmed by CALIN SMART, CADENCE ([id number]), index editor CASSIE ALMANZAR ([id number]) on 03/29/2024 7:11:58 AM Referred By: VALERIE/ADIEL Confirmed By: CADENCE LAYTON MD
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
--- NOTE | 2024-03-27 17:17 | CT_ITS ---
EXAM: CT HEAD WITHOUT INTRAVENOUS CONTRAST CLINICAL INDICATION: headache TECHNIQUE: Multiple axial images were obtained of the head without intravenous contrast. This CT exam was performed using one or more of the following dose reduction techniques: automated exposure control, adjustment of the mA and/or kV according to patient size, and/or use of iterative reconstruction technique. RADIATION DOSE: CTDIvol = 44.99 mGy, DLP = 796.11 mGy-cm. COMPARISON: March 25, 2024. FINDINGS: BRAIN AND EXTRA-AXIAL SPACES: Unremarkable. No intra- or extra-axial hemorrhage. No evidence of acute infarct. No intracranial mass or mass effect. There is preservation of the steward/white matter interface. Posterior fossa structures are unremarkable. Ventricles are appropriate for age. No hydrocephalus. Basal cisterns are patent. BONES/JOINTS: Unremarkable. No discrete lytic or blastic abnormalities. VASCULATURE: Vertebral artery calcification, slight. Mild intracranial carotid calcifications. Mild cerebral volume loss. SINUSES: Unremarkable as visualized. Clear. MASTOID AIR CELLS: Unremarkable. Clear. ORBITS: Visualized globes, extraocular muscles, optic nerves and retrobulbar fat appear unremarkable. CT/Brain/Head without Contrast IMPRESSION: No acute findings in the head/brain. Electronically Signed: Charlene Bazan MD at 18:59 EST ,
[2024-03-27] MEDS: 0.9% Normal Saline (1000mL) 1,000 ML 999 ML IV (17:20)
[2024-03-27 17:28] LABS: Absolute Lymphocyte Count 3.56 X10^3/uL (0.83-4.51); Absolute Neutrophil Count 4.3 X10^3/uL (2.0-7.7); Basophil# 0.08 X10^3/uL; Basophil% 0.9 % (0-1); Eosinophil# 0.19 X10^3/uL; Eosinophils% 2.1 % (0-5); Hematocrit 42.8 % (37-47); Hemoglobin 14.7 g/dL (12.0-15.0); Lymphocyte # 3.56 X10^3/ul (0.83-4.51); Lymphocyte % 39.3 % (19-41); Mean Corp Hgb Conc 34.3 g/dL (32-36); Mean Corpuscular Hgb 30.9 pg (27.0-32.0); Mean Corpuscular Volume 89.9 fL (81-99); Mean Platelet Vol. 9.7 fl (6.2-12.0); Monocyte# 0.84 X10^3/uL; Monocyte% 9.3 % (0-10); NRBC Flagged by Analyzer 0 % (0-5); Neutrophil # 4.34 X10^3/uL (2.7-7.7); Neutrophil % 47.8 % (47-70); Platelet Count 306 K/mm3 (150-450); RBC Distribution Width CV 12.2 % (11.6-14.6); RBC Distribution Width SD 40.3 fl (35.1-43.9); Red Blood Count 4.76 M/mm3 (4.2-5.4); White Blood Count 9.1 K/mm3 (4.4-11.0)
[2024-03-27 17:41] LABS: D-Dimer Quantitative (DVT/PE) 0.62 FEU/ug/m (0.27-0.49)
[2024-03-27 17:46] LABS: Anion Gap 14 (5-15); BUN 22 mg/dL (7-18); BUN/Creat Ratio 20.2 RATIO (10-20); Calcium,Total 10.1 mg/dL (8.5-10.1); Chloride 105 mmol/L (98-107); Creatinine, Serum 1.09 mg/dL (0.55-1.02); EST Glomerular Filtration Rate 52 mL/min (>60); Est Glom Filt Rate - Afr Amer 63 mL/min (>60); Estimated Creatinine Clearance 53.29 ml/min; Glucose 119 mg/dL (74-106); Potassium 3.4 mmol/L (3.5-5.1); Sodium Level 140 mmol/L (136-145); Troponin-I HS (w/2H Reflex) < 3 pg/mL (3.0-54.0)
[2024-03-27 17:48] LABS: BNP,B-Type NATRIURETIC PEPTIDE 17.4 pg/mL (0-100)
[2024-03-27 18:41] LABS: Mucous, Urine 0 SEEN /hpf (<or=2+); Red Blood Cells-Urine 0 SEEN /hpf (0-5)
[2024-03-27 18:43] LABS: Color, Urine Straw (Yellow); Glucose, Dipstick Normal (Normal); Ketone-Dipstick 50 mg/dl (Negative); Leukocyte Esterase-Dipstick 25 /ul (Negative); Nitrite-Dipstick Negative (Negative); Occult Blood-Urine Negative /ul (Negative); Protein-Dipstick Negative (Negative); Urine Bilirubin Dipstick Negative (Negative); Urine Clarity Clear (Clear); Urine Urobilinogen Normal (Normal); Urine pH 6.5 (5.0 - 8.0)
[2024-03-27 18:56] LABS: Bacteria 1+ /hpf (None Seen); Squamous Epithelial Cells - UA 0-5 SEEN /hpf (5-10); White Blood Cells 10-25 SEEN /hpf (0-5)
[2024-03-27 19:25] LABS: Reflex Troponin-HS? (from REC) Y
[2024-03-27 19:49] LABS: Troponin-I HS 7 pg/mL (3.0-54.0)
== END 2024-03-27 20:52 | disposition home or self-care (01) ==
PROVIDERS: Nurse Practitioner; Emergency Provider Emergency Medicine; PCP Family Medicine; Visit Provider Emergency Medicine
DX: R55 Syncope and collapse (principal); G45.9 Transient cerebral ischemic attack, unspecified; E66.9 Obesity, unspecified; R06.02 Shortness of breath; E03.9 Hypothyroidism, unspecified; Z79.02 Long term (current) use of antithrombotics/antiplatelets; Z79.82 Long term (current) use of aspirin; Z79.899 Other long term (current) drug therapy
CPT/HCPCS: 70450; 71045; 80048; 81001; 83880; 84484; 85025; 85379; 87086; 87088; 87631; 93005; 96360; 99284; A4216

== ENCOUNTER 2024-08-04 16:49 | Inpatient (IN) | payer MEDICARE, OTHER, SELFPAY ==
[2024-08-04] VITALS (8 sets, daily range): BP systolic 145–154; BP diastolic 83–101; PULSE 92–117; RESP 15–28; TEMP 36.2–36.8; O2SAT 94–98; BMI 39.1
--- NOTE | 2024-08-04 16:50 | CT_ITS ---
PROCEDURE: STROKE CTA HEAD AND NECK W/CON 08/04/2024 REASON FOR EXAM: NEURO DEFICIT, ACUTE, STROKE SUSPECTED TECHNIQUE: CTA head and neck was performed with IV contrast. Multiplanar reformats as well as MIP and 3D reconstructions were generated. CONTRAST: Isovue 370 VOLUME: 100mL RADIATION DOSE SUMMARY: CTDlvol: 7.59+ 26.19 mGy DLP: 907.17 mGycm One or more dose reduction techniques were used (e.g., Automated exposure control, adjustment of the mA and/or kV according to patient size, use of iterative reconstruction technique). COMPARISON: 03/15/2024 FINDINGS: CTA NECK: Aortic Arch: Atherosclerosis. Three-vessel arch. Brachiocephalic and subclavians: Nonobstructing atherosclerosis at the brachiocephalic and RIGHT subclavian origins as well as along the proximal LEFT subclavian. RIGHT Carotid: Right CCA: Nonobstructing atherosclerosis in the bulb.. Tortuosity proximally. Right ICA: Mild roughly 20% stenosis along the proximal ICA. Retropharyngeal course. Right ECA: Nonobstructing atherosclerosis proximally. LEFT Carotid: Left CCA: Nonobstructing atherosclerosis in the bulb. Tortuosity proximally. Left ICA: Nonobstructing atherosclerosis of the origin. Left ECA: Nonobstructing atherosclerosis proximally. Vertebrals: Codominant. Arise from the subclavians. Both vertebrals form the basilar. RIGHT Vertebral: Patent. Mild tortuosity proximally and at the level of C2. LEFT Vertebral: Patent. Mild tortuosity proximally and marked tortuosity at the level of C2. slightly diminutive distal V4 segment. CTA HEAD: Slight limitation related to venous contamination. Anterior circulation: Nonobstructing atherosclerosis in the carotid siphons.. Posterior circulation: Patent. Venous structures: Grossly unremarkable within limits of nondedicated technique. Other: Demineralization. Multilevel spondylosis.. Periapical lucency surrounding the roots of the posterior most LEFT mandibular tooth suspicious for periapical abscess. Similar but smaller findings along RIGHT maxillary teeth. CT/STROKE CTA Head AND Neck W/Con IMPRESSION: 1. No high-grade stenosis or large vessel occlusion identified. 2. Recommend outpatient dental consultation for above findings suspicious for p eriapical abscess. 3. Additional description as above. Reading Location: [id number]
--- NOTE | 2024-08-04 16:53 | EKG12_ITS ---
Test Reason : STROKE ALERT Blood Pressure : */* mmHG Vent. Rate : 96 BPM Atrial Rate : 96 BPM P-R Int : 168 ms QRS Dur : 140 ms QT Int : 406 ms P-R-T Axes : 33 -19 -3 degrees QTcB Int : 512 ms Normal sinus rhythm Right bundle branch block Abnormal ECG Confirmed by CALIN SMART, CADENCE ([id number]), senior technical editor CASSIE ALMANZAR ([id number]) on 08/05/2024 1:26:14 PM Referred By: Confirmed By: CADENCE LAYTON MD
--- NOTE | 2024-08-04 16:53 | CT_ITS ---
PROCEDURE: STROKE BRAIN/HEAD WITHOUT CONT (CTBR.ST), 08/04/2024 REASON FOR EXAM: NEURO DEFICIT, ACUTE, STROKE SUSPECTED COMPARISON: 03/27/2024 TECHNIQUE: CT head was performed without IV contrast. Multiplanar reformats were generated. RADIATION DOSE SUMMARY: CTDlvol: 44.99 mGy DLP: 796.11 mGycm One or more dose reduction techniques were used (e.g., Automated exposure control, adjustment of the mA and/or kV according to patient size, use of iterative reconstruction technique). FINDINGS: Cerebrum: Unremarkable. Cerebellum/brainstem: Unremarkable. Note slight limitation due to beam hardening artifact. Ventricles/extra-axial spaces: Unremarkable. Paranasal sinuses/mastoid air cells: Unremarkable. Scalp/calvarium: Unremarkable. Other: Intracranial atherosclerosis. CT/STROKE Brain/Head without Cont IMPRESSION: 1. No visible acute intracranial findings. If there is persistent concern, cons ider MRI. 2. Additional description as above. Red Alert: As above The critical information above was relayed directly by me by telephone to Josef Perez on 08/04/2024 at 3:16 pm. Reading Location: [id number]
--- NOTE | 2024-08-04 16:58 | EDS_ITS ---
HPI History of Present Illness Chief Complaint: Neuro S/Sx Narrative Narrative: Patient is a 73-year-old female past medical history of melanoma, TIA, hypertension who presents to the emergency department the chief complaint of left arm numbness and tingling and vision changes out of her left eye with left facial numbness and tingling. Patient states that her symptoms started approximately 20 minutes prior to arrival here which was around 4:30 PM. Patient denies any blood thinning medications. States that she feels pressure on the left side of her head currently denies any falls or injuries to her head. Patient states that currently her left arm numbness and tingling is getting better and her changes in her vision have improved. [facility] Medical History Melanoma Lower extremity pain Home Medications ?Medication ?Instructions ?Recorded ?Last Taken ?Type aspirin 81 mg chewable tablet 81 mg PO BREAKFAST #0 ta bs 03/16/24 08/04/24 Rx losartan 50 mg-hydrochlorothiazide 0.5 tab PO DAILY 08/04/24 History 12.5 mg tablet ipratropium bromide 42 mcg (0.06 2 spray intranasal DA LENNOX PRN 08/04/24 Unknown History %) nasal spray allergy symptoms levothyroxine 100 mcg tablet 100 mcg PO DAILY 08/04/24 08/04/24 History Allergy/AdvReac Type Severity Reaction Status Date / Time Sulfa (Sulfonamide Allergy unknown Verified 04/30/24 10:49 Antibiotics) Family History Mother , 81 No problems noted. 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 pets and animals: Yes pets and animals: dog(s) Smoking Status: Never smoker alcohol intake: never caffeine: Yes Type: coffee Number of servings: 2 do you feel safe at home: Yes ROS ROS ED ROS Narrative Constitutional: Complains of head pressure as noted above denies lightheadedness dizziness Eyes: Complains of changes vision left eye denies double vision Cardiovascular: Denies chest pain Respiratory: Denies coughing wheezing shortness of breath Abdomen: Denies abdominal pain nausea vomit diarrhea : Denies urinary symptoms Neurological: Complains of left arm numbness and tingling as well as left facial numbness tingling as noted above Musculoskeletal: Denies back pain Skin: Denies rashes or lesions EXAM Physical Exam Narrative Exam Narrative: General: Patient lying in bed rest comfortably did not appear to be in acute distress Head: Atraumatic, normocephalic Eyes: PERRL bilaterally, EOMI bilateral, no conjunctival injection noted Neck: Soft, supple, trachea midline Cardiovascular: Patient tachycardic with regular rhythm no murmurs gallops rubs noted Respiratory: Clear to auscultation bilaterally Abdomen: Soft, nondistended, nontender to palpation Extremities: +5/5 strength noted in the bilateral upper and lower extremities, radial pulses +2/4 in the bilateral extremities, no pedal edema on exam Neurological: Patient following commands knew that she was at [facility] year is 2024. NIH of 1 GCS 15 Skin: Warm, dry, intact no rashes or lesions noted Const Vital Signs: 08/04/24 16:49 08/04/24 16:53 08/04/24 17:17 Temperature 97.2 F L Temperature Source Oral Pulse Rate 117 H 100 Respiratory Rate 15 28 H Blood Pressure 154/86 H 148/83 H Blood Pressure Mean 108 104 Pulse Ox 94 Oxygen Delivery Method Room Air Room Air 08/04/24 17:30 08/04/24 18:00 Temperature Temperature Source Pulse Rate 92 94 Respiratory Rate 18 26 H Blood Pressure 152/95 H 145/88 H Blood Pressure Mean 114 107 Pulse Ox 96 98 Oxygen Delivery Method Room Air Room Air MDM MDM MDM Narrative Medical decision making narrative: Patient is a 73-year-old female who presents to the emergency department with a chief complaint of left facial and left arm numbness and tingling and left vision changes states that she saw prisms out of the left eye. Patient does note that she does not have a headache but she does have head pressure. On the differential diagnose includes but not limited to complex migraine, intracranial hemorrhage, TIA. Once workup is obtained reviewed she will be reevaluated. Patient is not a tenecteplase candidate given that her symptoms are improving. Patient's MRI from March 2024 was reviewed which showed 3 tiny foci of increased signal intensity on diffusion-weighted imaging in the right subcortical white matter and these were very tiny in nature there was concerned that they may be from embolic etiology. Echo from March was reviewed as well which showed ejection fraction of 70% and no regional wall motion abnormalities noted. Patient CBC was reviewed showed no evidence leukocytosis white blood count normal 8.8, hemoglobin 14.3, platelet count was noted be 267. Patient INR 1, PT of 13.1. Patient sodium normal 140, potassium normal at 3.7, creatinine normal at 0.96. Patient's troponin noted to be less than 6 patient's chest x-ray reviewed by myself and by radiology showed no acute cardiopulmonary processes noted. Patient CT head and brain without contrast was reviewed and showed no acute visible intracranial findings. Patient's CTA head and neck reviewed and showed no high-grade stenosis or large vessel occlusion identified. Recommended outpatient dental consultation for above finding suspicion for periapical abscesses. Patient's EKG reviewed and showed sinus rhythm with a rate of 96 bpm with evidence of right bundle branch block which when compared to March 27, 2024 she had right bundle branch block at that point time as well. Patient was evaluated by teleneurologist Dr. Zuniga who states that the patient is not a tenecteplase candidate and would recommend aspirin and statin admitted to the hospital for further workup. Will discuss case with hospitalist for admission for suspected TIA. Discussed case with hospitalist Dr. Hastings who accept patient for admission. There was noted to be a periapical abscess Around the posterior most left mandibular tooth suspicious for periapical abscess which there indeed was noted to be 1 this was opened here in the emergency department and drained. Patient was given her first dose of Augmentin. Lab Data Labs: Laboratory Results - last 24 hr 08/04/24 16:59 WBC 8.8 RBC 4.56 Hgb 14.3 Hct 41.9 MCV 91.9 MCH 31.4 MCHC 34.1 RDW Std Deviation 42.5 RDW Coeff of Piper 12.6 Plt Count 267 MPV 9.4 Immature Gran % (Auto) 0.200 Neut % (Auto) 45.1 L Lymph % (Auto) 41.4 H [place] % (Auto) 10.4 H Eos % (Auto) 2.2 Baso % (Auto) 0.7 Absolute Neuts (auto) 4.0 Absolute Lymphs (auto) 3.65 Nucleated RBC % 0 PT 13.1 INR 1.0 APTT 24.4 Sodium 140 Potassium 3.7 Chloride 103 Carbon Dioxide 23.5 Anion Gap 14 BUN 20 H Creatinine 0.96 Estim Creat Clear Calc 58.65 Est GFR (MDRD) Non-Af 63 BUN/Creatinine Ratio 20.9 H Glucose 124 H Calcium 9.6 Troponin T High Sens < 6 Radiography Diagnostic Testing: Clinical Impression(s) from Imaging Studies Head/Neck CTA 08/04/24 16:50 IMPRESSION: 1. No high-grade stenosis or large vessel occlusion identified. 2. Recommend outpatient dental consultation for above findings suspicious for periapical abscess. 3. Additional description as above. Reading Location: [facility] Brain CT 08/04/24 16:53 IMPRESSION: 1. No visible acute intracranial findings. If there is persistent concern, consider MRI. 2. Additional description as above. Red Alert: As above The critical information above was relayed directly by me by telephone to Josef Jang on 08/04/2024 at 3:16 pm. Reading Location: [facility] Chest X-Ray 08/04/24 17:20 IMPRESSION: 1. No convincing or visible acute cardiopulmonary findings 2. Additional description as above. Reading Location: [facility] Discharge Plan Triage Chief Complaint: Neuro S/Sx ED Provider: Josef Jang Dx/Rx/DC Orders Clinical Impression: Brain TIA, Hypertension, Abscess, periapical Primary Care Provider: Bryan Barboza Disposition Disposition: Acute Care [facility]
--- NOTE | 2024-08-04 17:07 | ED.RN ---
1706: [facility] CALLED PT. BACK IN ROOM FROM CT
[2024-08-04 17:12] LABS: Absolute Lymphocyte Count 3.65 X10^3/uL (0.83-4.51); Basophil# 0.06 X10^3/uL; Basophil% 0.7 % (0-1); Eosinophil# 0.19 X10^3/uL; Eosinophils% 2.2 % (0-5); Hematocrit 41.9 % (37-47); Hemoglobin 14.3 g/dL (12.0-15.0); Lymphocyte # 3.65 X10^3/ul (0.83-4.51); Lymphocyte % 41.4 % (19-41); Mean Corp Hgb Conc 34.1 g/dL (32-36); Mean Corpuscular Hgb 31.4 pg (27.0-32.0); Mean Corpuscular Volume 91.9 fL (81-99); Mean Platelet Vol. 9.4 fl (6.2-12.0); Monocyte# 0.92 X10^3/uL; Monocyte% 10.4 % (0-10); NRBC Flagged by Analyzer 0 % (0-5); Neutrophil # 3.97 X10^3/uL (2.7-7.7); Neutrophil % 45.1 % (47-70); Platelet Count 267 K/mm3 (150-450); RBC Distribution Width CV 12.6 % (11.6-14.6); RBC Distribution Width SD 42.5 fl (35.1-43.9); Red Blood Count 4.56 M/mm3 (4.2-5.4); White Blood Count 8.8 K/mm3 (4.4-11.0)
--- NOTE | 2024-08-04 17:20 | RAD_ITS ---
PROCEDURE: CHEST PA AND LATERAL (RADCXR), 08/04/2024 REASON FOR EXAM: TIGLINGING AND VISION CHANGES TECHNIQUE: PA and lateral views of the chest were obtained. COMPARISON: 05/28/2023 FINDINGS: Heart: Unremarkable. Mediastinum: Atherosclerosis. Aortic tortuosity, unable to exclude ectasia/aneurysm. Lungs/pleura: No convincing focal consolidation allowing for chest wall attenuation. No pleural effusion or visible pneumothorax. Bones: Demineralization. Similar thoracic dextroscoliosis.. Multilevel spondylosis. Lines and support devices: None. Other: Clips similar RIGHT axillary surgical. RAD/Chest PA and Lateral IMPRESSION: 1. No convincing or visible acute cardiopulmonary findings 2. Additional description as above. Reading Location: [id number]
[2024-08-04 17:39] LABS: Prothrombin Time (Protime)PT. 13.1 SECONDS (11.7-14.9)
[2024-08-04 17:40] LABS: Partial Thromboplast Time 24.4 Seconds (24.1-36.2)
[2024-08-04 17:43] LABS: Anion Gap 14 (5-15); BUN 20 mg/dL (4-19); BUN/Creat Ratio 20.9 RATIO (10-20); Calcium,Total 9.6 mg/dL (7.6-11.0); Carbon Dioxide 23.5 mmol/L (21.0-32.0); Chloride 103 mmol/L (98-108); Creatinine, Serum 0.96 mg/dL (0.70-1.20); EST Glomerular Filtration Rate 63 (>60); Estimated Creatinine Clearance 58.65 ml/min (50-250); Glucose 124 mg/dL (70-99); Potassium 3.7 mmol/L (3.3-5.1); Sodium Level 140 mmol/L (133-145); Troponin T High Sensitivity < 6 ng/L (<=14)
[2024-08-04] MEDS: Aspirin 325 MG Tablet PO (17:54)
--- NOTE | 2024-08-04 18:15 | ECHOD_ITS ---
Reason For Study Reason For Study: TIA/CVA Procedure This was a 2D Doppler, Color Flow transthoracic echocardiogram. Exam performed portable in patient room. Left Ventricle Normal LV size. Left ventricular systolic function is normal. The estimated ejection fraction is 65 %. Diastolic function is indeterminate. No regional wall motion abnormalities noted. Right Ventricle Normal RV size. Normal systolic function. Atria Normal left atrium. Normal right atrium. Mitral Valve Moderate mitral annular calcification. Trivial mitral valve insufficiency. Tricuspid Valve Normal tricuspid valve. Mild (1+) tricuspid valve insufficiency. Pulmonary artery systolic pressure is 28 mmHg. Aortic Valve Trisinus/trileaflet aortic valve. Mild focal aortic valve calcification. There is no aortic stenosis. Pulmonic Valve Normal pulmonic valve. Trivial pulmonic valve insufficiency. Great Vessels Normal sized aortic root. Pericardium/Pleural No pericardial effusion. MMode/2D Measurements & Calculations LVIDd: 5.3 cm IVSd: 0.86 cm Ao root diam: 3.2 cm LVIDs: 3.2 cm LVPWd: 0.91 cm RVDd: 2.6 cm FS: 39.3 % LAV(MOD-bp): 62.4 ml LVAd ap4: 21.9 cm2 LVAd ap2: 18.0 cm2 LAV(MOD-bp) Indexed: 32.4 ml/m2 LVLd ap4: 6.6 cm LVLd ap2: 6.8 cm LAV(MOD-sp2): 54.5 ml EDV(MOD-sp4): 59.4 ml EDV(MOD-sp2): 40.6 ml LAV(MOD-sp4): 69.7 ml EDV(sp4-el): 61.5 ml EDV(sp2-el): 40.3 ml LVAs ap4: 11.2 cm2 LVAs ap2: 9.3 cm2 LVLs ap4: 5.5 cm LVLs ap2: 5.3 cm ESV(MOD-sp4): 21.2 ml ESV(MOD-sp2): 14.3 ml ESV(sp4-el): 19.2 ml ESV(sp2-el): 13.9 ml EF(MOD-sp4): 64.3 % EF(MOD-sp2): 64.8 % EF(sp4-el): 68.8 % SV(MOD-sp4): 38.1 ml SV(MOD-sp2): 26.3 ml SV(sp4-el): 42.3 ml SI(MOD-sp4): 19.8 ml/m2 SI(MOD-sp2): 13.7 ml/m2 LA A4 area: 22.3 cm2 LA dimension(2D): 4.0 cm RA A4 area: 12.7 cm2 TAPSE: 2.0 cm Time Measurements MV dec time: 0.24 sec Doppler Measurements & Calculations MV E max shyam: 120.9 cm/sec Lat Peak E' Shaym: 3.9 cm/sec Med Peak E' Shyam: 5.2 cm/sec MV A max shyam: 164.1 cm/sec E/E' lat: 30.7 E/E' med: 23.1 MV E/A: 0.74 MV V2 max: 198.4 cm/sec MV P1/2t max shyam: 131.6 cm/sec Ao V2 max: 142.8 cm/sec MV max P.8 mmHg MV P1/2t: 57.9 msec Ao max P.2 mmHg MV V2 mean: 109.3 cm/sec Ao V2 mean: 102.5 cm/sec MV mean P.5 mmHg MV dec slope: 665.6 cm/sec2 Ao mean P.7 mmHg MV V2 VTI: 45.5 cm MVA(P1/2t): 3.8 cm2 Ao V2 VTI: 33.2 cm AV (velocity ratio): 0.76 LV V1 max: 105.7 cm/sec PA V2 max: 94.7 cm/sec TR max shyam: 240.5 cm/sec LV V1 max P.5 mmHg PA V2 mean: 64.9 cm/sec TR max P.1 mmHg LV V1 mean P.8 mmHg LV V1 mean: 78.9 cm/sec LV V1 VTI: 25.3 cm ECHO/Echo Complete Interpretation Summary The estimated ejection fraction is 65 %. Diastolic function is indeterminate. Moderate mitral annular calcification. Mild (1+) tricuspid valve insufficiency. Mild focal aortic valve calcification. Ordering Physician: Dany Hastings Referring Physician: Bryan Barboza Performed By: Starla Campbell, RDCS, RVT
[2024-08-04] MEDS: Amox/Clavulanate 875 MG Tablet PO (18:38)
--- NOTE | 2024-08-04 19:31 | HP.PCM.HOS_ITS ---
HPI - General General Date of Admission: 08/04/24 HPI Narrative DIEGO RINALDI, is a 73 F who presents to the hospital with signs and symptoms consistent of a stroke. She has had a history of a previous TIA back in March and presents today at around 5 PM for of left facial numbness and tingling of the left as well as changes in vision of her left eye and left arm numbness and tingling. Symptoms started approximately 20 minutes prior to arrival and have since improved significantly but have not resolved. She has also had issues with periapical abscesses in the left side of her mouth that was lanced in the ER by the ED physician and she was given a dose of Augmentin. She has had multiple dental issues in the past and does appear based on CT scans that she is continuing to have these issues and needs to follow-up with a dentist as an outpatient. She did notice head pressure around the time of her symptoms but denies any overt headache. [facility] Medical History Melanoma Lower extremity pain Home Medications ?Medication ?Instructions ?Recorded ?Last Taken ?Type aspirin 81 mg chewable tablet 81 mg PO BREAKFAST #0 ta bs 03/16/24 08/04/24 Rx losartan 50 mg-hydrochlorothiazide 0.5 tab PO DAILY 08/04/24 History 12.5 mg tablet ipratropium bromide 42 mcg (0.06 2 spray intranasal DA LENNOX PRN 08/04/24 Unknown History %) nasal spray allergy symptoms levothyroxine 100 mcg tablet 100 mcg PO DAILY 08/04/24 08/04/24 History Allergy/AdvReac Type Severity Reaction Status Date / Time Sulfa (Sulfonamide Allergy unknown Verified 04/30/24 10:49 Antibiotics) Family History Mother , 81 No problems noted. 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 pets and animals: Yes pets and animals: dog(s) Smoking Status: Never smoker alcohol intake: never caffeine: Yes Type: coffee Number of servings: 2 do you feel safe at home: Yes ROS Constitutional Constitutional: Denies chills, fatigue, fever(s) or malaise Eyes Eyes: Reports blurry vision ENT HEENT: Denies headache(s) or nasal discharge Cardiovascular Cardiovascular: Denies chest pain, dyspnea on exertion or syncope Respiratory/Chest Respiratory/Chest: Denies cough, shortness of breath at rest or shortness of breath with exertion Gastrointestinal Gastrointestinal: Denies constipation, diarrhea, nausea or vomiting Genitourinary Genitourinary: Denies dysuria Neurologic Neurologic: Reports paresthesias and tingling; Denies focal weakness, numbness or tremor(s) Psychiatric Psychiatric: Denies anxiety or depression Vital Signs Vital Signs Vital Signs: 08/04/24 16:49 08/04/24 16:53 08/04/24 17:17 Temperature 97.2 F L Temperature Source Oral Pulse Rate 117 H 100 Respiratory Rate 15 28 H Blood Pressure 154/86 H 148/83 H Blood Pressure Mean 108 104 Pulse Ox 94 Oxygen Delivery Method Room Air Room Air 08/04/24 17:30 08/04/24 18:00 08/04/24 18:41 Temperature 98.2 F Temperature Source Pulse Rate 92 94 94 Respiratory Rate 18 26 H 26 H Blood Pressure 152/95 H 145/88 H 145/88 H Blood Pressure Mean 114 107 107 Pulse Ox 96 98 98 Oxygen Delivery Method Room Air Room Air Weight Weight: 220 lb 14.451 oz Body Mass Index (BMI) 39.1 Physical Exam Narrative General: Alert, Oriented x3, Cooperative, No apparent distress HEENT: Atraumatic, PERRLA, EOMI, Normocephalic Oral: Moist Mucosa Neck: Supple, No JVD Lungs: Diminished, Normal air movement, No rhonchi, No wheeze, No rales Cardiovascular: Regular rate, Regular Rhythm, Normal S1, Normal S2, No murmurs Abdomen: Soft, Non Tender, Non-Distended, No Hepato-splenomegaly Extremities: No edema, Capillary Refill Less than 3 Seconds Skin: No rashes, No breakdown Musculoskeletal: No Tenderness to Palpation of Joints or Extremities Neurological: No focal neurological deficits, Motor Exam 5/5 strength throughout, Sensory exam intact to light touch and pain, NIH of 1 Psych/Mental Status: Normal Affect, Appropriate Results Lab / Micro Data 08/04/24 16:59 08/04/24 16:59 Labs: Laboratory Results - last 24 hr 08/04/24 16:59: WBC 8.8, RBC 4.56, Hgb 14.3, Hct 41.9, MCV 91.9, MCH 31.4, MCHC 34.1, RDW Std Deviation 42.5, RDW Coeff of Piper 12.6, Plt Count 267, MPV 9.4, Immature Gran % (Auto) 0.200, Neut % (Auto) 45.1 L, Lymph % (Auto) 41.4 H, [place] % (Auto) 10.4 H, Eos % (Auto) 2.2, Baso % (Auto) 0.7, Absolute Neuts (auto) 4.0, Absolute Lymphs (auto) 3.65, Nucleated RBC % 0, PT 13.1, INR 1.0, APTT 24.4, Sodium 140, Potassium 3.7, Chloride 103, Carbon Dioxide 23.5, Anion Gap 14, BUN 20 H, Creatinine 0.96, Estim Creat Clear Calc 58.65, Est GFR (MDRD) Non-Af 63, B UN/Creatinine Ratio 20.9 H, Glucose 124 H, Calcium 9.6, Troponin T High Sens < 6 Imaging Radiology Impression Head/Neck CTA 08/04/24 16:50 IMPRESSION: 1. No high-grade stenosis or large vessel occlusion identified. 2. Recommend outpatient dental consultation for above findings suspicious for periapical abscess. 3. Additional description as above. Reading Location: [facility] Brain CT 08/04/24 16:53 IMPRESSION: 1. No visible acute intracranial findings. If there is persistent concern, consider MRI. 2. Additional description as above. Red Alert: As above The critical information above was relayed directly by me by telephone to Josef Jang on 08/04/2024 at 3:16 pm. Reading Location: [facility] Chest X-Ray 08/04/24 17:20 IMPRESSION: 1. No convincing or visible acute cardiopulmonary findings 2. Additional description as above. Reading Location: [id number] Assessment & Plan Assessment/Plan (1) CVA (cerebral vascular accident): PLAN: Plan 1. CVA versus TIA/essential HTN ? Continue stroke protocol and obtain an MRI and an echo ? Continue with aspirin and Lipitor ? Hold her home blood pressure medications pending MRI results 2. Periapical abscess ? She has been having frequent issues with dental infections ? Recommend outpatient follow-up with her dentist ? Continue with Augmentin p.o. twice daily ? Her abscess was drained in the ER 3. Hypothyroidism ? TSH in March was normal ? Continue with Synthroid DVT: SCDs 75 minutes was spent on direct patient care, including documentation as well as chart review and collaboration with colleagues Charges/Coding Visit Charges Inpatient E&M: 73661 Init Hosp L3
--- NOTE | 2024-08-04 20:03 | CASEMGMT ---
Care Management Face to Face with patient for initial transition planning/care coordination assessment in the ED.? This selling underwriter introduced self and role at [facility]. Patient alert and oriented. Patient willing to participate in assessment and is able to answer all questions appropriately.? Care providers, pharmacy, and demographics verified. Admitting Diagnosis: Neuro S/SX Other diagnosis history: melanoma, lower extremity pain PCP: Tamra Specialists: None Preferred Pharmacy: [facility] pharmacy Insurance: ?Medicare Prescription Benefit: medical mutual Living Will/HPOA: ?competed, named LNOK: Living Arrangements: Lives with in one story home, 2 stairs to enter.? Independent with ADLs and IADLs. Transportation: ?Patient drives DME: blood pressure cuff HHC: none SNF/Rehab: ?none Community Resources: none Behavioral Health History: none Patient goals: Patient wishes to discharge home, denies need for home health care at this time. Patient denies any further needs or concerns at this time. Disposition Plan: admission to acute; RN CM/SW to follow for discharge planning needs that may arise. Eileen Mcguire, FIELD TRAINER, COLD WATER MACHINE OPERATOR
[2024-08-04 20:04] LABS: Troponin T High Sens 2 HR 7 ng/L (<=14)
[2024-08-04 21:18] LABS: Troponin T High Sens 4 HR 7 ng/L (<=14)
[2024-08-04] MEDS: Atorvastatin Calcium 80 MG Tablet PO (21:57)
[2024-08-05] VITALS (8 sets, daily range): BP systolic 121–133; BP diastolic 73–84; PULSE 75–88; RESP 18; TEMP 36.6–36.8; O2SAT 95–97; BMI 39.1
[2024-08-05 06:33] LABS: Absolute Lymphocyte Count 0.93 X10^3/uL (0.83-4.51); Absolute Neutrophil Count 3.3 X10^3/uL (2.0-7.7); Basophil# 0.03 X10^3/uL; Basophil% 0.6 % (0-1); Hematocrit 37.4 % (37-47); Hemoglobin 12.5 g/dL (12.0-15.0); Lymphocyte # 0.93 X10^3/ul (0.83-4.51); Lymphocyte % 18.8 % (19-41); Mean Corp Hgb Conc 33.4 g/dL (32-36); Mean Corpuscular Hgb 30.7 pg (27.0-32.0); Mean Corpuscular Volume 91.9 fL (81-99); Mean Platelet Vol. 9.6 fl (6.2-12.0); Monocyte# 0.53 X10^3/uL; Monocyte% 10.7 % (0-10); NRBC Flagged by Analyzer 0 % (0-5); Neutrophil # 3.33 X10^3/uL (2.7-7.7); Neutrophil % 67.5 % (47-70); Platelet Count 215 K/mm3 (150-450); RBC Distribution Width CV 12.6 % (11.6-14.6); RBC Distribution Width SD 42.5 fl (35.1-43.9); Red Blood Count 4.07 M/mm3 (4.2-5.4); White Blood Count 4.9 K/mm3 (4.4-11.0)
[2024-08-05] MEDS: Levothyroxine 100 MCG Tablet PO (06:42)
[2024-08-05 08:01] LABS: Cholesterol 188 mg/dL (<=200); High Density Lipoprotein 45 mg/dL; Low Density Lipoprotein Calc. 118 mg/dL; Triglycerides 126 mg/dL; Very Low Density Lipoprotein 25 mg/dL (5-40)
[2024-08-05 08:07] LABS: Anion Gap 10 (5-15); BUN 15 mg/dL (4-19); BUN/Creat Ratio 21.9 RATIO (10-20); Calcium,Total 9.1 mg/dL (7.6-11.0); Carbon Dioxide 22.4 mmol/L (21.0-32.0); Chloride 106 mmol/L (98-108); Creatinine, Serum 0.69 mg/dL (0.70-1.20); EST Glomerular Filtration Rate 92 (>60); Estimated Creatinine Clearance 66.25 ml/min (50-250); Glucose 90 mg/dL (70-99); Potassium 3.9 mmol/L (3.3-5.1); Sodium Level 138 mmol/L (133-145)
--- NOTE | 2024-08-05 09:00 | MRI_ITS ---
PROCEDURE: BRAIN WITHOUT CONTRAST (MRIBR), 08/05/2024 REASON FOR EXAM: CVA COMPARISON: 08/04/2024 TECHNIQUE: Multisequence multiplanar MRI brain was performed without intravenous contrast. Contrast: None. FINDINGS: Cerebrum: There are punctate foci of RIGHT frontoparietal faint cortical/subcortical restricted diffusion in the, similar region to prior but favored new, compatible with punctate acute infarcts.. No appreciable associated hemorrhage or mass-effect. Minimal presumed chronic microvascular ischemic changes in the supratentorial white matter. Cerebellum: Unremarkable. Brainstem: Unremarkable. Ventricles/extra-axial spaces: Age appropriate appearance. Major flow voids: Better evaluated on recent CTA.. Paranasal sinuses: Unremarkable. Scalp/calvarium: Unremarkable. Orbits: Grossly unremarkable within limits of nondedicated technique. Other: None. MRI/Brain without Contrast IMPRESSION: 1. Suspect punctate acute infarcts in the cortical/subcortical RIGHT frontopari etal region in a similar region to previous MRI 03/15/2024. No appreciable mass effect or intracranial hemorrhage. 2. Additional description as above. Findings were discussed by telephone with Danya SMART at 7:26 am [facility] on 08/06/19 25 by Cisco Wong. Reading Location: [id number]
[2024-08-05] MEDS: Aspirin 81 MG TAB.CHEW PO (10:35)
[2024-08-05] MEDS: Amox/Clavulanate 875 MG Tablet PO (10:35)
--- NOTE | 2024-08-05 10:48 | CASEMGMT ---
Social Work Pt MRI positive. PHQ9 completed with score of 0 indicating no depression. TIANA Londono
--- NOTE | 2024-08-05 12:39 | STROKE.CONS ---
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 Neurological examination shows NIH 0. Neuroimaging shows MRI new punctate infarcts in same location as prior. - Anti-platelet medication: Aspirin 81 mg daily - Occupational/ Physical therapy consults - NPO until swallow evaluation. IVF until able to take po - DVT prophylaxis with SCDs and heparin SQ - Vascular risk factor modification. The following are the recommended guidelines: LDL Goal < 70 Smoking Cessation Diabetes Management ocean transportation intermediary blood pressure control should achieve <130/80 mmHg. BP management should aim to achieve technician terminal and repeater contorl in a reasonable amount of time, taking into consideration the individual patient's requirements and characteristics. Weight Management: Goal for BMI is 18.5 -24.9 kg/m2 Alcohol: No more than 2 drinks/day for men or 1 drink/day for non- women - Promote lifestyle modification: weight control, physical activity, moderation of alcohol intake, moderate sodium intake. - Transfer to [facility] for the following reasons: Followup with PCP in 1-2 weeks, and in Neurology clinic in 6-12 weeks -TTE follo wup. If wnl. Then consider JADYN since now she has had new events which look Cardioembolic. - MCT x 30 days. HPI Consult Data Date of Consult: 08/05/24 HPI Narrative HPI Narrative: DIEGO RINALDI, is a 73 F who presents [facility] Medical History Melanoma Lower extremity pain Home Medications ?Medication ?Instructions ?Recorded ?Last Taken ?Type aspirin 81 mg chewable tablet 81 mg PO BREAKFAST #0 tabs 03/16/24 08/04/24 Rx losartan 50 mg-hydrochlorothiazide 0.5 tab PO DAILY 04/30/24 08/04/24 History 12.5 mg tablet ipratropium bromide 42 mcg (0.06 2 spray intranasal DAILY PRN 08/04/24 Unknown History %) nasal spray allergy symptoms levothyroxine 100 mcg tablet 100 mcg PO DAILY 08/04/24 08/04/24 History Allergy/AdvReac Type Severity Reaction Status Date / Time Sulfa (Sulfonamide Allergy unknown Verified 04/30/24 10:49 Antibiotics) Family History Mother , 81 No problems noted. 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 pets and animals: Yes pets and animals: dog(s) Smoking Status: Unknown if ever smoked alcohol intake: never caffeine: Yes Type: coffee Number of servings: 2 do you feel safe at home: Yes Vital Signs Vital Signs Vital Signs: 08/04/24 16:49 08/04/24 16:53 08/04/24 17:17 Temperature 97.2 F L Temperature Source Oral Pulse Rate 117 H 100 Pulse Strength Respiratory Rate 15 28 H Respiratory Effort Respiratory Depth Respiratory Pattern Blood Pressure 154/86 H 148/83 H Blood Pressure Mean 108 104 Blood Pressure Source Blood Pressure Position Blood Pressure Location Pulse Ox 94 Oxygen Delivery Method Room Air Room Air 08/04/24 17:30 08/04/24 18:00 08/04/24 18:41 Temperature 98.2 F Temperature Source Pulse Rate 92 94 94 Pulse Strength Respiratory Rate 18 26 H 26 H Respiratory Effort Respiratory Depth Respiratory Pattern Blood Pressure 152/95 H 145/88 H 145/88 H Blood Pressure Mean 114 107 107 Blood Pressure Source Blood Pressure Position Blood Pressure Location Pulse Ox 96 98 98 Oxygen Delivery Method Room Air Room Air 08/04/24 19:45 08/04/24 22:00 08/04/24 22:00 Temperature 97.3 F L Temperature Source Temporal Pulse Rate 95 Pulse Strength Normal (2+) Respiratory Rate 16 Respiratory Effort Respiratory Depth Respiratory Pattern Blood Pressure 151/101 H Blood Pressure Mean 117 Blood Pressure Source Blood Pressure Position Blood Pressure Location Pulse Ox 98 Oxygen Delivery Method Room Air Room Air 08/04/24 22:00 08/04/24 22:35 08/05/24 00:09 Temperature 97.3 F L 98.1 F Temperature Source Temporal Temporal Pulse Rate 95 85 Pulse Strength Respiratory Rate 16 18 Respiratory Effort Respiratory Depth Respiratory Pattern Blood Pressure 151/101 H 133/79 H Blood Pressure Mean 117 97 Blood Pressure Source Monitor Monitor Blood Pressure Position Semi-Fowlers Blood Pressure Location Left Forearm Pulse Ox 98 95 96 Oxygen Delivery Method Room Air Room Air Room Air 08/05/24 03:00 08/05/24 04:02 08/05/24 04:17 Temperature 98.3 F Temperature Source Temporal Pulse Rate 83 77 Pulse Strength Respiratory Rate 18 Respiratory Effort Respiratory Depth Respiratory Pattern Blood Pressure 121/77 H Blood Pressure Mean 91 Blood Pressure Source Monitor Blood Pressure Position Semi-Fowlers Blood Pressure Location Left Forearm Pulse Ox 97 Oxygen Delivery Method Room Air Room Air 08/05/24 06:00 08/05/24 07:57 08/05/24 08:00 Temperature 98.2 F 97.8 F Temperature Source Temporal Temporal Pulse Rate 78 75 Pulse Strength Respiratory Rate 18 18 Respiratory Effort Respiratory Depth Respiratory Pattern Blood Pressure 125/79 H 122/84 H Blood Pressure Mean 94 96 Blood Pressure Source Monitor Monitor Blood Pressure Position Supine Semi-Fowlers Blood Pressure Location Left Forearm Pulse Ox 97 95 Oxygen Delivery Method Room Air Room Air Room Air 08/05/24 08:02 08/05/24 08:02 Temperature Temperature Source Pulse Rate Pulse Strength Normal (2+) Respiratory Rate Respiratory Effort Normal Non-Labored Respiratory Depth Normal Respiratory Pattern Normal Blood Pressure Blood Pressure Mean Blood Pressure Source Blood Pressure Position Blood Pressure Location Pulse Ox Oxygen Delivery Method Room Air Weight Weight: 89.9 kg Body Mass Index (BMI) 39.1 EEG Results Procedure Details EEG Procedure Details: DIEGO RINALDI is a 73 year old F with a past medical history of , who presents for evaluation of Electroencephalogram on DATE at TIME Lab / Micro Data 08/05/24 05:59 08/05/24 05:59 Labs: Laboratory Results - last 24 hr 08/04/24 16:59: WBC 8.8, RBC 4.56, Hgb 14.3, Hct 41.9, MCV 91.9, MCH 31.4, MCHC 34.1, RDW Std Deviation 42.5, RDW Coeff of Piper 12.6, Plt Count 267, MPV 9.4, Immature Gran % (Auto) 0.200, Neut % (Auto) 45.1 L, Lymph % (Auto) 41.4 H, [place] % (Auto) 10.4 H, Eos % (Auto) 2.2, Baso % (Auto) 0.7, Absolute Neuts (auto) 4.0, Absolute Lymphs (auto) 3.65, Nucleated RBC % 0, PT 13.1, INR 1.0, APTT 24.4, Sodium 140, Potassium 3.7, Chloride 103, Carbon Dioxide 23.5, Anion Gap 14, BUN 20 H, Creatinine 0.96, Estim Creat Clear Calc 58.65, Est GFR (MDRD) Non-Af 63, BUN/Creatinine Ratio 20.9 H, Glucose 124 H, Calcium 9.6, Troponin T High Sens < 6 08/04/24 19:14: Troponin T Hi Sens 2 Hr 7 08/04/24 20:24: Troponin T Hi Sens 4Hr 7 08/05/24 05:59: WBC 4.9, RBC 4.07 L, Hgb 12.5, Hct 37.4, MCV 91.9, MCH 30.7, MCHC 33.4, RDW Std Deviation 42.5, RDW Coeff of Piper 12.6, Plt Count 215, MPV 9.6, Immature Gran % (Auto) 0.400, Neut % (Auto) 67.5, Lymph % (Auto) 18.8 L, [place] % (Auto) 10.7 H, Eos % (Auto) 2.0, Baso % (Auto) 0.6, Absolute Neuts (auto) 3.3, Absolute Lymphs (auto) 0.93, Nucleated RBC % 0, Sodium 138, Potassium 3.9, Chloride 106, Carbon Dioxide 22.4, Anion Gap 10, BUN 15, Creatinine 0.69 L, Estim Creat Clear Calc 66.25, Est GFR (MDRD) Non-Af 92, BUN/Creatinine Ratio 21.9 H, Glucose 90, Calcium 9.1, Triglycerides 126, Cholesterol 188, LDL Cholesterol, Calc 118, VLDL Cholesterol 25, HDL Cholesterol 45, Cholesterol/HDL Ratio 4.20 Imaging Radiology Impression Head/Neck CTA 08/04/24 16:50 IMPRESSION: 1. No high-grade stenosis or large vessel occlusion identified. 2. Recommend outpatient dental consultation for above findings suspicious for periapical abscess. 3. Additional description as above. Reading Location: [facility] Brain CT 08/04/24 16:53 IMPRESSION: 1. No visible acute intracranial findings. If there is persistent concern, consider MRI. 2. Additional description as above. Red Alert: As above The critical information above was relayed directly by me by telephone to Josef Jang on 08/04/2024 at 3:16 pm. Reading Location: [facility] Chest X-Ray 08/04/24 17:20 IMPRESSION: 1. No convincing or visible acute cardiopulmonary findings 2. Additional description as above. Reading Location: [facility] Brain MRI 08/05/24 09:00 IMPRESSION: 1. Suspect punctate acute infarcts in the cortical/subcortical RIGHT frontoparietal region in a similar region to previous MRI 03/15/2024. No appreciable mass effect or intracranial hemorrhage. 2. Additional description as above. Findings were discussed by telephone with Danya SMART at 7:26 am [facility] on 08/05/2024 by Cisco Wong. Reading Location: [facility] Active Medications Active Medications Active Medications: Current Medications Generic Name Dose Route Start Last Admin Trade Name Freq PRN Reason Stop Dose Admin Amoxicillin/Clavulanate Potassium 875 mg 08/05/24 08:00 08/05/24 10:35 Amox/Clavulanate 875 Mg Tablet PO 875 mg BIDCM SHON Administration Aspirin 81 mg 08/05/24 08:00 08/05/24 10:35 Aspirin 81 Mg Tab.Chew PO 81 mg BREAKFAST SHON Administration Atorvastatin Calcium 40 mg 08/05/24 22:00 Atorvastatin Calcium 40 Mg Tablet PO QHS SHON Hydralazine HCl 5 mg 08/04/24 19:31 Hydralazine 20 Mg/Ml Vial IV 08/05/24 19:31 Q30M PRN maintain BP parameters with HR <60 Sodium Chloride 100 mls @ 15 mls/hr 08/04/24 19:55 IV .Q6H40M PRN Saline Flush Sodium Chloride 100 mls @ 15 mls/hr 08/04/24 19:55 IV .Q6H40M PRN Additional IVPB Infusion Labetalol HCl 10 - 20 mg 08/04/24 19:31 Labetalol 20mg/4ml Syringe IV 08/05/24 19:31 Q10M PRN PRN maintain BP parameters with HR >/=60 Levothyroxine Sodium 100 mcg 08/05/24 06:00 08/05/24 06:42 Levothyroxine 100 Mcg Tablet PO 100 mcg DAILY@0600 SHON Administration Sodium Chloride 10 - 40 ml 08/04/24 19:55 0.9% Saline Lock 10 Ml Syringe IV UD PRN SALINE FLUSH NIHSS NIHSS Nursing Documentation NIHSS Nursing Documentation: NIHSS: Ischemic Stroke/TIA Start: 08/04/24 19:31 Text: For PCU Patients: NIH and Neuro Check every 4 Status: Active hours, PRN and with change in RN caregiver. Freq: [id number] Protocol: Activity Type Activity Date Activity User E-sign Co-sign Detail Recorded Client Recorded Date Recorded By Document 08/05/24 08:00 MITUL [id number] 08/05/24 08:01 MITUL 08/05/24 08:00 NIH Stroke Scale [NIHSS] A score of 0 is normal or asymptomatic . Total possible score is 42. Inpatient: RN or Physician to activate a stroke alert for onset of new stroke symptoms or with NIHSS increase >/= 3 points. Following change in neurological status, NIHSS will be performed per physician order or more frequently PRN. -1a. Level of Consciousness 0 - Alert; keenly responsive -1b. LOC Questions 0 - Answers BOTH questions correctly -1c. LOC Commands 0 - Performs BOTH tasks correctly -2. Best Gaze 0 - Normal -3. Visual 0 - No visual loss -4. Facial Palsy 0 - Normal symmetrical movements -5a. Left Arm 0 - No drift; arm holds 90 ( or 45) degrees for full 10 seconds -5b. Right Arm 0 - No drift; arm holds 90 ( or 45) degrees for full 10 seconds -6a. Left Leg 0 - No drift; leg holds 30- degree position for full 5 seconds -6b. Right Leg 0 - No drift; leg holds 30- degree position for full 5 seconds -7. Limb Ataxia 0 - Absent -8. Sensory 1 - Mild-to- moderate sensory loss; -9. Best Language 0 - No aphasia; normal -10. Dysarthria 0 - Normal -11. Extinction and Inattention 0 - No abnormality -Total 1 Query Text:A score of 0 is normal or asymptomatic. Total possible score is 42 . ED: Notify Physician for NIHSS increase by > / = 3 points. Inpatient: RN or Physician to activate a stroke alert for NIHSS increase of > / = 3 points. Coma Scale [Assess] -Eye Opening Spontaneous -Motor Obeys Commands -Verbal Oriented [Total] -Coma Scale Total 15
--- NOTE | 2024-08-05 13:04 | DCINST_ITS ---
Discharge Instructions Diet Discharge Diet: No restrictions DC O2, CPAP, BIPAP needs Home O2 Discharge instructions: No Dressing / Incision Discharge Activity: No Restrictions Follow Up Care Test Results: Test results from this visit will be discussed in further detail at your follow- up appointment, if applicable. Discharge Plan Admission Admit Date/Time: 08/04/24 18:13 Primary Reason for Your Visit: Strokelike symptoms Attending Provider: Reno Hagan Primary Care Provider: Bryan Barboza Consulting Providers: Dany Hastings; Marty Umaña; Leida Jones; Maddie Woody; Taniya Boss; Ana Pinto; Italo Zuniga; Dalila Ramon; Noman Montelongo; Daniel Benton; Ismael Aguirre; Viola Hicks; Rui Licea; Molly Lee; Nayeli Anderson; Allegra Dietz; Edin Edmonds; Austen Hill; Solitario Blair; Allyn Cazares; Chema Oates Instructions Additional Instructions / Restrictions: Take 6 more days of Augmentin to complete 7-day course of antibiotics for your tooth infection. Please wear the 30-day event monitor as you did before. Follow-up with your PCP and neurology after the monitor has been been completed. Discharge Orders/Prescriptions Prescriptions: New atorvastatin 40 mg Tablet 40 mg PO QHS 30 Days Qty: 30 2RF amoxicillin-pot clavulanate 875-125 mg Tablet 1 tab PO BIDCM 6 Days Qty: 12 0RF Continued losartan-hydrochlorothiazide 50-12.5 mg tablet 0.5 tab PO DAILY aspirin 81 mg Tablet,Chewable 81 mg PO BREAKFAST Qty: 0 0RF levothyroxine 100 mcg tablet 100 mcg PO DAILY ipratropium bromide 42 mcg (0.06 %) spray,non-aerosol 2 spray INTRANASAL DAILY PRN (Reason: allergy symptoms) Other Ambulatory Orders: 30 Day Event Recorder Preventi (Urgent) Timeframe: 1 Month Facility: [facility] - Location: Cardiovascular Services Ordered By: Dr. Reno Hagan Referrals / Follow Up: Bryan Barboza MD [Primary Care Provider] - Disposition Disposition (needs filled in before D/C Order can be placed): Home, Self Care
--- NOTE | 2024-08-05 13:04 | PCM.DC.SUM ---
Providers Date of Admission: 08/04/24 Date of Discharge: 08/05/24 Primary Care Physician: Dr. Bryan Barboza MD Consultations 08/04/24 19:59 Consult: Tele-Neurology Routine Consulting Provider: [facility] Reason for Consult: CVA r/o EMERGENT Consult: No Notified: No Date Notified: 08/04/24 Time Notified: 19:59 Nursing Unit Staff Notify [facility] of Tele-Neurology Consult: Yes 08/05/24 10:17 [facility] [Consult: Tele-Neurology] Routine Consulting Provider: [facility] Reason for Consult: STROKE EMERGENT Consult: No Notified: Yes Date Notified: 08/05/24 Time Notified: 10:17 Method of Notification: Answering Service Nursing Unit Staff Notify [facility] of Tele-Neurology Consult: Yes Reason For Visit: CVA Diagnosis Discharge Diagnosis (1) CVA (cerebral vascular accident): Status: Acute Code(s): I63.9 - Cerebral infarction, unspecified Medications at Discharge Home Medications aspirin 81 mg chewable tablet 81 mg PO BREAKFAST #0 tabs 03/16/24 losartan 50 mg-hydrochlorothiazide 12.5 mg tablet 0.5 tab PO DAILY 04/30/24 ipratropium bromide 42 mcg (0.06 %) nasal spray 2 spray intranasal DAILY PRN allergy symptoms 08/04/24 levothyroxine 100 mcg tablet 100 mcg PO DAILY 08/04/24 amoxicillin 875 mg-potassium clavulanate 125 mg tablet 1 tab PO BIDCM 6 days #12 tabs 08/05/24 atorvastatin 40 mg tablet 40 mg PO QHS 30 days #30 tabs 08/05/24 Hospital Course Operations None Procedures EKG, Transthoracic echo and - (CT brain, CTA head/neck, MRI brain, chest x-ray) Summary of Care Provided Minutes Spent on Discharge: 35 Hospital Course: Patient is a 73-year-old female who presented to [facility] ED on 08/04/2024 with strokelike symptoms. Hospital course as noted below. Patient discharged home in stable condition on . Recurrent CVA ? Neurology followed. Presented with left arm and left facial numbness/tingling and left eye vision issues. CT brain and CTA head/neck unremarkable. NIHSS score of 1. Thrombolytics were not administered given low NIHSS score and not on disabling symptoms. MRI brain did show new punctate infarcts in right parietal lobe. Importantly, patient had very similar presentation in March and MRI brain showed infarcts in same area at that time. TTE was normal and 30-day event monitor was negative for any aberrant rhythms. Repeat TTE showed normal EF and no new findings from previous. Per neurology, highest suspicion is for cardioembolic source. Will discharge with 30-day event monitor again and JADYN can be considered in the outpatient setting if needed. 2. Periapical abscess ? Has prior history of periapical abscesses in the left side of her mouth. CT head/neck showed periapical lucency in posterior left mandibular tooth suspicious for periapical abscess. Abscess was lanced in the ED. Will complete 7-day course of Augmentin on discharge. Recommend close outpatient follow-up with dentistry. 3. Hypertension ? Continue home losartan?hydrochlorothiazide. 4. Hypothyroidism ? Continue home Synthroid. Total clinical time spent by myself addressing the patient's medical issues, reviewing all the data, and collaborating with patient's care team: 35 minutes. Physical Exam Const alert, oriented x3, no apparent distress, average body habitus, healthy appearing and well nourished General Appearance: cooperative, comfortable, well kempt and well developed HEENT normocephalic, head/scalp atraumatic, hearing grossly normal bilaterally, nasal mucous membranes and turbinates normal and moist oral mucous membranes Eyes PERRL, EOMs intact bilaterally and conjunctivae normal Neck full ROM Chest inspection of chest normal Resp normal respiratory effort, normal air movement, no use of accessory muscles and clear to auscultation bilaterally Cardio regular rate, regular rhythm, no murmurs and peripheral pulses 2+ throughout GI normal to inspection, nondistended, normoactive bowel sounds, soft to palpation, non-tender and non-distended Back/Spine normal ROM Extremity normal to inspection, full ROM and no pedal edema Skin no rashes or lesions noted Neuro oriented x3, CN's II-XII intact bilaterally, moves all extremities and no focal motor deficits Speech: speech normal Motor Exam: strength 5/5 throughout Psych mental status grossly normal Weight / BMI Weight Weight: 89.9 kg Body Mass Index (BMI) 39.1 ABG / Lab / Microbiology Data 08/05/24 05:59 08/05/24 05:59 Laboratory: Laboratory Results - last 24 hr 08/04/24 16:59: WBC 8.8, RBC 4.56, Hgb 14.3, Hct 41.9, MCV 91.9, MCH 31.4, MCHC 34.1, RDW Std Deviation 42.5, RDW Coeff of Piper 12.6, Plt Count 267, MPV 9.4, Immature Gran % (Auto) 0.200, Neut % (Auto) 45.1 L, Lymph % (Auto) 41.4 H, [place] % (Auto) 10.4 H, Eos % (Auto) 2.2, Baso % (Auto) 0.7, Absolute Neuts (auto) 4.0, Absolute Lymphs (auto) 3.65, Nucleated RBC % 0, PT 13.1, INR 1.0, APTT 24.4, Sodium 140, Potassium 3.7, Chloride 103, Carbon Dioxide 23.5, Anion Gap 14, BUN 20 H, Creatinine 0.96, Estim Creat Clear Calc 58.65, Est GFR (MDRD) Non-Af 63, BUN/Creatinine Ratio 20.9 H, Glucose 124 H, Calcium 9.6, Troponin T High Sens < 6 08/04/24 19:14: Troponin T Hi Sens 2 Hr 7 08/04/24 20:24: Troponin T Hi Sens 4Hr 7 08/05/24 05:59: WBC 4.9, RBC 4.07 L, Hgb 12.5, Hct 37.4, MCV 91.9, MCH 30.7, MCHC 33.4, RDW Std Deviation 42.5, RDW Coeff of Piper 12.6, Plt Count 215, MPV 9.6, Immature Gran % (Auto) 0.400, Neut % (Auto) 67.5, Lymph % (Auto) 18.8 L, [place] % (Auto) 10.7 H, Eos % (Auto) 2.0, Baso % (Auto) 0.6, Absolute Neuts (auto) 3.3, Absolute Lymphs (auto) 0.93, Nucleated RBC % 0, Sodium 138, Potassium 3.9, Chloride 106, Carbon Dioxide 22.4, Anion Gap 10, BUN 15, Creatinine 0.69 L, Estim Creat Clear Calc 66.25, Est GFR (MDRD) Non-Af 92, BUN/Creatinine Ratio 21.9 H, Glucose 90, Calcium 9.1, Triglycerides 126, Cholesterol 188, LDL Cholesterol, Calc 118, VLDL Cholesterol 25, HDL Cholesterol 45, Cholesterol/HDL Ratio 4.20 Radiography Diagnostic Testing: Radiology Impression Head/Neck CTA 08/04/24 16:50 IMPRESSION: 1. No high-grade stenosis or large vessel occlusion identified. 2. Recommend outpatient dental consultation for above findings suspicious for periapical abscess. 3. Additional description as above. Reading Location: [id number] Brain CT 08/04/24 16:53 IMPRESSION: 1. No visible acute intracranial findings. If there is persistent concern, consider MRI. 2. Additional description as above. Red Alert: As above The critical information above was relayed directly by me by telephone to Josef Jang on 08/04/2024 at 3:16 pm. Reading Location: [id number] Chest X-Ray 08/04/24 17:20 IMPRESSION: 1. No convincing or visible acute cardiopulmonary findings 2. Additional description as above. Reading Location: [id number] Echocardiogram 08/04/24 18:15 Interpretation Summary The estimated ejection fraction is 65 %. Diastolic function is indeterminate. Moderate mitral annular calcification. Mild (1+) tricuspid valve insufficiency. Mild focal aortic valve calcification. Ordering Physician: Dany Hastings Referring Physician: Bryan Barboza Performed By: Starla Campbell, RDCS, RVT Brain MRI 08/05/24 09:00 IMPRESSION: 1. Suspect punctate acute infarcts in the cortical/subcortical RIGHT frontoparietal region in a similar region to previous MRI 03/15/2024. No appreciable mass effect or intracranial hemorrhage. 2. Additional description as above. Findings were discussed by telephone with Danya SMART at 7:26 am [facility] on 08/05/2024 by Cisco Wong. Reading Location: [facility] D/C Instructions DC O2, CPAP, BIPAP Needs Home O2 Discharge instructions: No Meaningful Use Info Meaningful Use Meaningful Use Diagnoses (Choose all that apply): Ischemic CVA CVA Therapy Assessed for PT,OT and/or ST?: Yes Ischemic Stroke Antithrombotic order at d/c?: Yes Dx of Atrial fib/flutter?: No Statin Dosing Therapy Reference: STATIN DOSE THERAPY REFERENCE: * Patients > 75 years receive moderate or high dose statin therapy. * Patients 75 years or YOUNGER should receive HIGH intensity statin dose unless contraindicated. You will be required to document reason for non-treatment if statin daily dose does not meet guidelines. HIGH DOSE STATIN THERAPY DAILY Atorvastatin > than or = to 40 mg Rosuvastatin > than or = to 20 mg Amlodipine + Atorvastatin > than or = to 2.5/40 mg Ezetimibe + Simvastatin 10/80 mg Simvastatin 80mg Statins at discharge?: Yes If patient is 75 or younger, pt will be discharged on HIGH intensity statin.: Yes Primary Dx Acute Ischemic CVA?: Yes Discharge Plan Admission Admit Date/Time: 08/04/24 18:13 Primary Reason for Your Visit: Strokelike symptoms Attending Provider: Reno Hagan Primary Care Provider: Bryan Barboza Consulting Providers: Dany Hastings; Marty Umaña; Leida Jones; Maddie Woody; Taniya Boss; Ana Pinto; Italo Zuniga; Dalila Ramon; Noman Montelongo; Daniel Benton; Ismael Aguirre; Viola Hicks; Rui Licea; Molly Lee; Nayeli Anderson; Allegra Dietz; Edin Edmonds; Austen Hill; Solitario Blair; Allyn Cazares; Chema Oates Instructions Additional Instructions / Restrictions: Take 6 more days of Augmentin to complete 7-day course of antibiotics for your tooth infection. Please wear the 30-day event monitor as you did before. Follow-up with your PCP and neurology after the monitor has been been completed. Discharge Orders/Prescriptions Prescriptions: New atorvastatin 40 mg Tablet 40 mg PO QHS 30 Days Qty: 30 2RF amoxicillin-pot clavulanate 875-125 mg Tablet 1 tab PO BIDCM 6 Days Qty: 12 0RF Continued losartan-hydrochlorothiazide 50-12.5 mg tablet 0.5 tab PO DAILY aspirin 81 mg Tablet,Chewable 81 mg PO BREAKFAST Qty: 0 0RF levothyroxine 100 mcg tablet 100 mcg PO DAILY ipratropium bromide 42 mcg (0.06 %) spray,non-aerosol 2 spray INTRANASAL DAILY PRN (Reason: allergy symptoms) Other Ambulatory Orders: 30 Day Event Recorder Preventi (Urgent) Timeframe: 1 Month Facility: [facility] - Location: Cardiovascular Services Ordered By: Dr. Reno Hagan Referrals / Follow Up: Bryan Barboza MD [Primary Care Provider] - Disposition Disposition (needs filled in before D/C Order can be placed): Home, Self Care Charges/Coding Visit Charges Inpatient E&M: 05987 Disch Hosp >30min
[2024-08-05 15:34] LABS: Bedside Glucose 113 mg/dL (74-106)
== END 2024-08-05 15:55 | disposition home or self-care (01) | DRG 66 ==
LOC: ED 18:07 → PCU 18:17
PROVIDERS: Admitting Provider Family Medicine; Emergency Provider Emergency Medicine; PCP Family Medicine; Visit Provider Hospitalist
DX: I63.9 Cerebral infarction, unspecified (principal); E03.9 Hypothyroidism, unspecified; I10 Essential (primary) hypertension; K04.7 Periapical abscess without sinus; I45.10 Unspecified right bundle-branch block; Z79.82 Long term (current) use of aspirin; Z88.2 Allergy status to sulfonamides; Z79.899 Other long term (current) drug therapy; Z79.02 Long term (current) use of antithrombotics/antiplatelets; Z79.890 Hormone replacement therapy; R29.701 NIHSS score 1
CPT/HCPCS: 36415; 70450; 70496; 70498; 70551; 71046; 80048; 80061; 82962; 84484; 85025; 85610; 85730; 92610; 93005; 93306; 94762; 97161; 97166; 97802; 99285; Q9967; A4216

== ENCOUNTER 2024-08-27 23:50 | Emergency (ER) | payer MEDICARE, OTHER, SELFPAY ==
[2024-08-27 23:51] VITALS: BP 152/92; PULSE 87; RESP 16; TEMP 36.6; O2SAT 94; BMI 37.0
--- NOTE | 2024-08-28 00:08 | EKG12_ITS ---
Test Reason : DYSRHYTHMIA Blood Pressure : */* mmHG Vent. Rate : 85 BPM Atrial Rate : 85 BPM P-R Int : 140 ms QRS Dur : 136 ms QT Int : 406 ms P-R-T Axes : 20 -19 -12 degrees QTcB Int : 483 ms Normal sinus rhythm Right bundle branch block Abnormal ECG Confirmed by CALIN SMART, CADENCE ([id number]), editor map CASSIE ALMANZAR ([id number]) on 08/31/2024 7:05:32 AM Referred By: CHIO Confirmed By: CADENCE LAYTON MD
--- NOTE | 2024-08-28 00:11 | ED.VIS.CHEST ---
HPI History of Present Illness Chief Complaint: Palpitations Narrative Narrative: Chief complaint and HPI: 73-year-old female with past medical history of HTN, HLD, hypothyroidism presents for evaluation of palpitations. Patient states she was lying in bed this evening about to fall asleep when she felt her heart flutter for a couple seconds. She states the palpitations quickly resolved. She states she became nervous in which she called EMS. She denies any fever, chills, URI symptoms, chest pain, shortness of breath, nausea, vomiting. Eating and drinking well. Triage note states that the patient has had heart palpitations in the past and was just recently seen here a few days ago. On chart review, patient is not been seen here since July and at that time it was for an abscess. I I brought this to the patient's attention and she states she has no history of palpitations and was not recently seen anywhere for palpitations. Review of systems: See HPI Medications: As listed on the chart Allergies: As listed on the chart PFSH: Per chart Vital signs: As listed on the chart. Reviewed. Physical exam: Gen: A&O x3, NAD Head: Normocephalic, atraumatic Eyes: No sclera icterus, conjunctiva clear ENT: Moist mucous membranes Neck: Trachea midline, No JVD CV: RRR, no murmurs, no peripheral edema Resp: Lungs CTA BL, no w/r/c GI: Abd soft, non-distended, non-tender, no r/r/g Musc: Full ROM, no deformity Skin: Warm, dry Neuro: Alert, oriented, grossly intact, sensation intact Psych: Cooperative, appropriate mood and affect [facility] Medical History Melanoma Lower extremity pain Home Medications ?Medication ?Instructions ?Recorded ?Last Taken ?Type aspirin 81 mg chewable tablet 81 mg PO BREAKFAST heart health #0 03/16/24 08/04/24 Rx tabs losartan 50 mg-hydrochlorothiazide 0.5 tab PO DAILY blood pressure 04/30/24 08/04/24 History 12.5 mg tablet ipratropium bromide 42 mcg (0.06 2 spray intranasal DAILY PRN 08/04/24 Unknown History %) nasal spray allergy symptoms levothyroxine 100 mcg tablet 100 mcg PO DAILY thyroid 08/04/24 08/04/24 History atorvastatin 40 mg tablet 40 mg PO QHS 30 days #30 tabs 08/05/24 Unknown Rx Allergy/AdvReac Type Severity Reaction Status Date / Time Sulfa (Sulfonamide Allergy unknown Verified 08/27/24 23:54 Antibiotics) Family History Mother , 81 No problems noted. 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 pets and animals: Yes pets and animals: dog(s) Smoking Status: Never smoker alcohol intake: never caffeine: Yes Type: coffee Number of servings: 2 do you feel safe at home: Yes EXAM Physical Exam Const Vital Signs: 08/27/24 23:51 08/27/24 23:56 Temperature 97.9 F Temperature Source Oral Pulse Rate 87 Respiratory Rate 16 Respiratory Effort Normal Respiratory Pattern Normal Blood Pressure 152/92 H Blood Pressure Mean 112 Pulse Ox 94 Oxygen Delivery Method Room Air MDM MDM MDM Narrative Medical decision making narrative: 73-year-old female with past medical history of HTN, HLD, hypothyroidism presents for evaluation of palpitations. Patient had palpitations prior to arrival which quickly resolved. Currently asymptomatic. Vitals are stable other than mild hypertension. Denies any associated complaints with the palpitations. Differential diagnosis includes but is not limited to arrhythmia, anemia, electrolyte abnormality, thyroid disease. Suspect less likely ACS. Laboratory workup ordered including chest x-ray. EKG and chest x-ray reviewed see below. CBC without leukocytosis or anemia. BMP unremarkable. Magnesium unremarkable. Troponin unremarkable. Patient not having chest pain therefore I do not think delta troponin is needed. TSH unremarkable. At this point in time no clear etiology for patient's palpitations. She has remained asymptomatic here without any complaints. Patient stable to discharge home. Follow-up with PCP. Return precautions explained. EKG: Interpreted by me/EM physician: EKG shows normal sinus rhythm with right bundle odalys block. Heart rate 85. Patient has history of right bundle branch block with EKG in July. Diagnostic: Interpreted by me/EM physician: Chest x-ray without pneumonia, effusion, cardiomegaly, pneumothorax. Radiology in agreement. Chest x-ray compared to the one in July and similar. Impression: 1. Palpitations Lab Data Labs: Laboratory Results - last 24 hr 08/28/24 00:02 WBC 8.3 RBC 4.45 Hgb 13.6 Hct 41.0 MCV 92.1 MCH 30.6 MCHC 33.2 RDW Std Deviation 42.8 RDW Coeff of [place] 12.6 Plt Count 252 MPV 9.4 Immature Gran % (Auto) 0.500 Neut % (Auto) 53.3 Lymph % (Auto) 26.8 [place] % (Auto) 10.2 H Eos % (Auto) 8.4 H Baso % (Auto) 0.8 Absolute Neuts (auto) 4.4 Absolute Lymphs (auto) 2.23 Nucleated RBC % 0 Sodium 140 Potassium 3.9 Chloride 103 Carbon Dioxide 25.7 Anion Gap 11 BUN 18 Creatinine 0.80 Estim Creat Clear Calc 67.09 Est GFR (MDRD) Non-Af 78 BUN/Creatinine Ratio 22.8 H Glucose 101 H Calcium 9.8 Magnesium 2.1 Troponin T High Sens < 6 TSH 2.800 Radiography Diagnostic Testing: Clinical Impression(s) from Imaging Studies Chest X-Ray 08/28/24 00:15 IMPRESSION: No evidence of acute disease. Reading Location: [facility] Discharge Plan Triage Chief Complaint: Palpitations ED Provider: Ad Encarnacion Dx/Rx/DC Orders Prescriptions: No Action losartan-hydrochlorothiazide 50-12.5 mg tablet 0.5 tab PO DAILY aspirin 81 mg Tablet,Chewable 81 mg PO BREAKFAST Qty: 0 0RF levothyroxine 100 mcg tablet 100 mcg PO DAILY ipratropium bromide 42 mcg (0.06 %) spray,non-aerosol 2 spray INTRANASAL DAILY PRN (Reason: allergy symptoms) atorvastatin 40 mg Tablet 40 mg PO QHS 30 Days Qty: 30 2RF Primary Care Provider: Bryan Barboza Referrals: Bryan Barboza MD [Primary Care Provider] - Print Language: Canadian
--- NOTE | 2024-08-28 00:15 | RAD_ITS ---
PROCEDURE: CHEST PA AND LATERAL 08/28/2024 REASON FOR EXAM: PALPITATIONS TECHNIQUE: Frontal and lateral views of the chest. COMPARISON: 08/04/2024 FINDINGS: The lungs appear clear. Pulmonary vascularity appears within limits. No pleural effusion. The cardiac and mediastinal contours appear within limits. S shaped thoracolumbar scoliosis with lumbar spondylosis/discogenic change. Surgical clips right lateral chest again seen. RAD/Chest PA and Lateral IMPRESSION: No evidence of acute disease. Reading Location: [id number]
[2024-08-28 00:17] LABS: Absolute Lymphocyte Count 2.23 X10^3/uL (0.83-4.51); Absolute Neutrophil Count 4.4 X10^3/uL (2.0-7.7); Basophil# 0.07 X10^3/uL; Basophil% 0.8 % (0-1); Eosinophils% 8.4 % (0-5); Hemoglobin 13.6 g/dL (12.0-15.0); Lymphocyte # 2.23 X10^3/ul (0.83-4.51); Lymphocyte % 26.8 % (19-41); Mean Corp Hgb Conc 33.2 g/dL (32-36); Mean Corpuscular Hgb 30.6 pg (27.0-32.0); Mean Corpuscular Volume 92.1 fL (81-99); Mean Platelet Vol. 9.4 fl (6.2-12.0); Monocyte# 0.85 X10^3/uL; Monocyte% 10.2 % (0-10); NRBC Flagged by Analyzer 0 % (0-5); Neutrophil # 4.44 X10^3/uL (2.7-7.7); Neutrophil % 53.3 % (47-70); Platelet Count 252 K/mm3 (150-450); RBC Distribution Width CV 12.6 % (11.6-14.6); RBC Distribution Width SD 42.8 fl (35.1-43.9); Red Blood Count 4.45 M/mm3 (4.2-5.4); White Blood Count 8.3 K/mm3 (4.4-11.0)
[2024-08-28 00:46] LABS: Anion Gap 11 (5-15); BUN 18 mg/dL (4-19); BUN/Creat Ratio 22.8 RATIO (10-20); Calcium,Total 9.8 mg/dL (7.6-11.0); Carbon Dioxide 25.7 mmol/L (21.0-32.0); Chloride 103 mmol/L (98-108); EST Glomerular Filtration Rate 78 (>60); Estimated Creatinine Clearance 67.09 ml/min (50-250); Glucose 101 mg/dL (70-99); Magnesium 2.1 mg/dL (1.5-2.2); Potassium 3.9 mmol/L (3.3-5.1); Sodium Level 140 mmol/L (133-145); Troponin T High Sensitivity < 6 ng/L (<=14)
[2024-08-28 00:53] VITALS: BP 152/92; PULSE 80; RESP 16; TEMP 36.6; O2SAT 95
== END 2024-08-28 00:57 | disposition home or self-care (01) ==
PROVIDERS: Emergency Provider Surgery; PCP Family Medicine; Visit Provider Surgery
DX: R00.2 Palpitations (principal); E78.5 Hyperlipidemia, unspecified; I10 Essential (primary) hypertension; E03.9 Hypothyroidism, unspecified
CPT/HCPCS: 71046; 80048; 83735; 84443; 84484; 85025; 93005; 99285; A4216

== ENCOUNTER → 2024-11-11 | Outpatient (CLI) | payer MEDICARE, OTHER, SELFPAY | END | disposition home or self-care (01) | LOC: MTLAB 16:59 | PROVIDERS: PCP Family Medicine; Referring Provider Family Medicine; Visit Provider Family Medicine | DX: E03.9 Hypothyroidism, unspecified (principal) | CPT/HCPCS: 36415; 84443 ==

== ENCOUNTER → 2024-12-08 | Outpatient (CLI) | payer MEDICARE, OTHER, SELFPAY ==
--- OUTSIDE RECORDS SUMMARY | 2024-12-08 07:06 | XMS RPT_ITS | CCD ---
Author Organization [facility] Providers Care Outpatient Services Director Name Role Phone Ariana Vasquez Unavailable Celia Shanda Unavailable Unavailable Slarb, Bibiana Unavailable Unavailable Ciesa, Aleksandra Unavailable Electric Meter Installer, System Unavailable Unavailable Mynor Prabhakar Unavailable Unavailable Unavailable Unavailable Ariana Vasquez DO Unavailable [phone] [place], Shanda Unavailable Unavailable Slarb EARLY CHILDHOOD ASSISTANT, Bibiana Unavailable Unavailable Ciesa B2B SALES CONSULTANT, Aleksandra Unavailable Electric Meter Installer, System Unavailable Unavailable Mynor Prabhakar RN Unavailable Unavailable Unavailable Unavailable Unavailable Ariana Vasquez DO Unavailable [phone] Ciesa, Pretty Unavailable Dr. John Barboza Primary Care Provider Dr. John Barboza Referring Provider Dr. John Barboza Other Provider Dr. Clif Johnson Attending Provider [phone] Bryan Barboza Primary Care Provider Josef Elder MD Unavailable [phone] John Barboza Primary Care Provider Dr. John Barboza Referring Provider Dr. John Barboza Other Provider Dr. Clif Johnson Attending Provider Josef Elder MD Unavailable Moe SNELL, Pretty Unavailable Unavailable Eleanor SNELL, Pretty Unavailable Unavailable Dr. Bryan Barboza MD Primary Care Provider Dr. Josef Jang DO Emergency Provider Venkata SMART, Dr. Dany Yanes Admit Provider Venkata SMART, Dr. Dany Yanes Other Provider Dr. Reno Hagan DO Attending Provider Leeroy SMART, Marty Other Provider Unavailable Karen SMART, Dr. Casarez Other Provider [phone] Bong SMART, Maddie Other Provider Unavailable Dr. Taniya Boss DO Other Provider Blair SMART, Dr. Perez Other Provider [phone] Nadia SMART, Dr. Puckett Other Provider Tristen SMART, Dr. Conner Other Provider Reginald SMART, Dr. Tineo Other Provider [phone] Chetan SMART, Dr. Sanchez Other Provider Timothy SMART, Dr. Guevara Other Provider Kurt SMART, Viola Other Provider Vinayak SMART, Dr. Fabian Other Provider Jesus SMART, Dr. Barnes Other Provider Justin SMART, Dr. Tyler Other Provider Mirela SMART, Dr. Allegra Corral Other Provider [phone] Grey SMART, Dr. Jesus Other Provider Sergio SMART, Dr. Boyce Other Provider Rossy SMART, Dr. Jerez Other Provider Sage SMART, Dr. Gruber Other Provider Unavailable Lashon SMART, Chema Other Provider Unavailable Venkata SMART, Dr. Dany Yanes Attending Provider Celena SMART, Dr. Watson Attending Provider Dr. Reno Hagan DO Other Provider Terry SMART, Dr. Banks Attending Provider Danya DOWELL, Dr. Bojorquez Referring Provider [facility], Dr. Duong Attending Provider [facility] DOW[facility]LL, Dr. Duong Emergency Provider Tamra SMART, Dr. Adams Attending Provider Tamra SMART, Dr. Adams Referring Provider TRA CAMPOVERDE Attending Unavailable RANNEY, CHRISTOPHER Primary Care Unavailable JOSEF ELDER Attending Unavailable RANRAJIV, CHRISTALDA Referring Unavailable RANRAJIV, CHRISTOPHER Primary Care Unavailable NYLA ZHANG Attending Unavailab NYLA Clarke Referring Unavailab robert BARBOZA, CHRISTOPHER Primary Care Unavailable JUAN CODY Attending Unavailable JUAN CODY Referring Unavailable RANNEY, CHRISTOPHER Primary Care Unavailable JUAN CODY Attending Unavailable RANRAJIV, CHRISTOPHER Primary Care Unavailable Ranrajiv, Christopher Primary Care Unavailable Reno Hagan Admitting Unavailable No Cazares Attending Unavailable Marty Umaña Consulting Unavailable Adeli, Amir Consulting Unavailable Hinduja, Maddie Consulting Unavailable Gera, Taniya Consulting Unavailable Zha, Ana Consulting Unavailable Nadia, Italo Consulting Unavailable Tristen, Dalila Consulting Unavailable Bittar, Noman Consulting Unavailable Daniel Benton Consulting Unavailable Ismael Aguirre Consulting Unavailable Viola Hicks Consulting Unavailable Rui Licea Consulting Unavailable Molly Lee Consulting Unavailable RidNayeli contreras Consulting Unavailable Mirela, Mhd Ellis Consulting UnavailEdin Heredia Consulting Unavailable Hill, Rami Consulting Unavailable Elba Blairhil Consulting Unavailable Allyn Cazares Consulting Unavailable Chema Oates Consulting Unavailable Reno Hagan Consulting Unavailable Reno Hagan Attending Unavailable Dany Hastings Admitting Unavailable Ranrajiv, Christopheliezer Primary Care Unavailable Dany Hastings Consulting Unavailable Marty Umaña Consulting Unavailable Adeli, Amir Consulting Unavailable Hinduja, Maddie Consulting Unavailable Gera, Taniya Consulting Unavailable Zha, Ana Consulting Unavailable Nadia, Italo Consulting Unavailable Tristen, Dalila Consulting Unavailable Bittar, Noman Consulting Unavailable Benton Daniel Consulting Unavailable Aguirre, Ismael Consulting Unavailable Beigel, Viola Consulting Unavailable Gusstevan, Rui Consulting Unavailable Jesus, Molly Consulting Unavailable Ridha, Mohamed Consulting Unavailable Zaghlouleh, Mhd Ellis Consulting UnavailEdin Heredia Consulting Unavailable Hill, Rami Consulting Unavailable Rossy, Solitario Consulting Unavailable Allyn Cazares Consulting Unavailable Marknawi, Yousef Consulting Unavailable SrinivasarandlettBryan Attending Unavailable [facility] Referring Unavailable [facility] Care Unavailable Ad Encarnacion Attending Unavailkun [facility] Care Unavailable Marty Umaña Consulting Unavailable Reno Hagan Admitting Unavailable [facility] Care Unavailable No Cazares Attending Unavailable Adeli, Amir Consulting Unavailable Maddie Woody Consulting Unavailable Gera Taniya Consulting Unavailable Blair, Ana Consulting Unavailable Italo Zuniga Consulting Unavailable Tristen, Dalila Consulting Unavailable Bittar, Noman Consulting Unavailable Benton, Daniel Consulting Unavailable Aguirre, Ismael Consulting Unavailable Beigel, Viola Consulting Unavailable Gusstevan, Rui Consulting Unavailable Jesus, Molly Consulting Unavailable Ridha, Mohamed Consulting Unavailable Zaghlouleh, Mhd Ellis Consulting UnavailEdin Heredia Consulting Unavailable Hill, Rami Consulting Unavailable Rossy, Solitario Consulting Unavailable Allyn Cazares Consulting Unavailable Lashon, Yousef Consulting Unavailable Reno Hagan Consulting Unavailable No Cazares Consulting Unavailable [facility] Care Unavailable Kotsonis, Dany F Admitting Unavailable Kotsonis, Dany F Attending Unavailable Kotsonis, Dany F Consulting Unavailable [facility] Primary Care Unavailable Walter Dallas Attending Unavailable Reno Hagan Referring Unavailable Darren Stewart Attending Unavailable [facility] Care Unavailable [facility] Primary Care Unavailable Clif Johnson Attending Unavailable Galo Harris Attending Unavailable [facility] Primary Care Unavailable [facility] Referring Unavailable [facility] Primary Care Unavailable No Cazares Referring Unavailable Clif Johnson Attending Unavailable Reno Hagan Attending Unavailable Marty Umaña Consulting Unavailable Adeli, Amir Consulting Unavailable Hinddavid Maddie Consulting Unavailable Gera Taniya Consulting Unavailable Ana Pinto Consulting Unavailable Italo Zuniga Consulting Unavailable Dalila Ramon Consulting Unavailable Noman Montelongo Consulting Unavailable Daniel Benton Consulting Unavailable Ismael Aguirre Consulting Unavailable Viola Hicks Consulting Unavailable Rui Licea Consulting Unavailable Molly Lee Consulting Unavailable Nayeli Anderson Consulting Unavailable Allegra Dietz Consulting UnavailEdin Heredia Consulting Unavailable [place] Consulting Unavailable Solitario Blair Consulting Unavailable Allyn Cazares Consulting Unavailable Chema Oates Consulting Unavailable Reno Hagan Consulting Unavailable Reno Hagan Attending Unavailable Bryan Barboza Primary Care Unavailable Abimael Trevino Attending Unavailable Reno Hagan Referring Unavailable Bryan Barboza Primary Care Unavailable Reno Hagan Attending Unavailable Bryan Barboza Primary Care Unavailable No Cazares Attending Unavailable No Cazares Referring Unavailable Allergies Allergy Classification Reported Allergen(s) Allergy Type Date of Onset Reaction(s) Facility (11 sources) Sulfonamides (Antibiotic); Translations: [Sulfa Drugs] Allergy to substance (finding) [facility]; [facility] Work Phone: Comment on above: [facility] (8 sources) Sulfonamides (Antibiotic) Allergy to substance 02-08-20 [facility] (20 sources) Sulfonamides (Antibiotic) Propensity to adverse reactions 12-25-19 [facility] (20 sources) Sulfamethoxazole / Trimethoprim Drug Allergy 03-21-20 23 [facility] (1 source) Sulfonamides (Antibiotic) Drug allergy (disorder) 08-28-19 [facility] Repository Medications Current Medications Medication Drug Class(es) Dates Sig (Normalized) Sig (Original) aspirin 81 mg chewable tablet (12 sources) Platelet Aggregation Inhibitor, Nonsteroidal Anti-inflammatory Drug Start: 03-16-2024 take 1 tablet by mouth at breakfast Aspirin 81 mg Tablet,Chewable Active 81 mg PO WITH BREAKFAST 0 0 March 16, 2024 1:00am [facility] Start: 08-19-2013 End: 08-08-2014 take 1 tablet by mouth once daily ASPIRIN ADULT LOW STRENGTH, 81MG (Oral Tablet Chewable) 1 (one) Tablet Chewable daily for 0 days Quantity: 30 {Tablet} Refills: 0 Ordered: 08-Aug-2014 Naye RUIZBibiana Start : 19-Aug-2013 End : 08-Aug-2014 Discontinued atorvastatin 40 mg oral tablet (13 sources) HMG-CoA Reductase Inhibitor Start: 08-05-2024 take 1 tablet by mouth at bedtime Atorvastatin 40 mg Tablet Active 40 mg PO AT BEDTIME 30 30 2 August 05, 2024 12:00am Start: 03-16-2024 End: 04-30-2024 take 1 tablet by mouth at bedtime Atorvastatin 40 mg Tablet Discontinued 40 mg PO AT BEDTIME 30 2 March 16, 2024 1:00am April 30, 2024 11:50am End: 01-19-2010 take 1 tablet by mouth once daily LIPITOR, 40MG (Oral Tablet) 1 tab qd for 0 days Refills: 0 Ordered: 19-Jan-2010 Maty Roldan RN End : 19-Jan-2010 Inactive Biotin (13 sources) BIOTIN 5000 PO T linden by mouth. Active BIOTIN 5000 PO T linden by mouth. 0 Active calcium carbonate 500 mg chewable tablet (10 sources) Start: 05-25-2024 calcium carbon ate 500 MG chewable tablet Chew 1 tablet (500 mg) every other day. 05/25/2024 Active Start: 05-20-2023 End: 06-17-2023 calcium carbonate (Tums) 500 MG chewable tablet Chew 500 mg 3 times daily. 0 05/20/2023 06/17/2023 Discontinued (Therapy completed) cephalexin 500 mg oral capsule (1 source) Cephalosporin Antibacterial Start: 02-17-2023 take 500 mg by mouth twice daily Cephalexin Active 500 MG PO TWICE A DAY 14 February 17, 2023 12:00am ipratropium bromide 0.042 mg/actuat metered dose nasal spray (1 source) Anticholinergic Start: 08-04-2024 Ipratropium Bennet 42 mcg (0.06 %) spray,non-aerosol Active 2 NMA INTRANASAL DAILY as needed for allergy symptoms August 04, 2024 12:00am levothyroxine sodium 0.1 mg oral tablet (20 sources) l-Thyroxine Start: 11-26-2022 End: 05-15-2023 take 1 tablet by mouth once daily Levothyroxine 100 mcg tablet Active 100 ug PO DAILY August 04, 2024 12:00am thyroid Start: 02-08-2021 End: 08-04-2024 take 1 capsule by mouth once daily Levothyroxine 100 mcg Capsule Discontinued 100 ug PO DAILY February 08, 2021 12:00am August 04, 2024 4:52pm nystatin 100 unt/mg topical powder (13 sources) Polyene Antifungal Start: 08-14-2023 nystatin (Mycostatin) 774304 UNIT/GM powder Indications: Cutaneous Candidiasis Apply 1 Application topically 2 times daily. Apply topically to affected area two times daily. 60 g 2 08/14/2023 Active omeprazole 20 mg delayed release oral capsule (20 sources) Proton Pump Inhibitor Start: 04-30-2023 take 1 capsule by mouth once daily omeprazole (PriLOSEC) [address] capsule Indications: Primary hypertension , Hypothyroidism, unspecified type , Morbid obesity with BMI of 45.0-49.9, adult (HCC) Take 1 capsule (20 mg) by mouth daily. Do not crush or chew. 90 capsule 1 04/30/2023 Active PEDIATRIC MULTIVITAMINS-IRON PO (20 sources) Start: 05-20-2023 take 1 tablet by mouth once daily PEDIATRIC MULTIVITAMINS-IRON PO Take 1 tablet by mouth daily. 05/20/2023 Active Start: 05-20-2023 take 1 tablet by marcus th once daily PEDIATRIC MULTIVITAMINS-IRON PO Take 1 tablet by mouth daily. 0 05/20/2023 Active vitamin b12 0.5 mg sublingual tablet (20 sources) Vitamin B12 Start: 05-20-2023 take 1 tablet under the tongue once daily Cyanocobalamin (B-12) [address] 1 tablet under the tongue daily. 05/20/2023 Active VITAMIN D PO (20 sources) Start: 05-20-2023 VITAMIN D PO T linden 4,000 Int'l Units by mouth daily. 05/20/2023 Active Start: 05-20-2023 VITAMIN D PO T linden 4,000 Int'l Units by mouth daily. 0 05/20/2023 Active Completed/Discontinued Medications Medication Drug Class(es) Dates Sig (Normalized) Sig (Original) acetaminophen 325 mg oral tablet (6 sources) Start: 05-15-2023 End: 05-15-2023 take 1 tablet by mouth every six hours as needed for pain acetaminophen (Tylenol) tablet 650 mg Start: 05-14-2023 End: 05-15-2023 take 1000 mg intravenously every six hours 1,000 mg, IntraVENous, at 400 mL/hr, Administer over 15 Minutes, Every 6 hours, First dose on Fri05/14/23 at 1745, For 24 hours, Phase II/On Unit Start: 05-14-2023 End: 05-14-2023 acetaminophen (Tylenol) tabl et 1,000 mg albuterol 0.83 mg/ml inhalation solution (20 sources) beta2-Adrenergic Agonist Start: 05-14-2023 End: 05-15-2023 albuterol (2.5 MG/3ML) 0.083% nebulizer solution 2.5 mg Start: 08-08-2022 albuterol 108 (90 Base) MCG/ACT inhaler Daily as needed. 08/08/2022 Active ALPRAZolam 0.25 mg disintegrating oral tablet (2 sources) Benzodiazepine Start: 05-14-2023 End: 05-14-2023 ALPRAZolam (Xanax) disintegrating tablet 0.25 mg amoxicillin 875 mg / clavulanate 125 mg oral tablet (12 sources) Penicillin-class Antibacterial Start: 08-05-2024 End: 08-27-2024 Amoxicillin-Pot Clavulanate 875-125 mg Tablet Discontinued 1 {tbl} PO TWICE DAILY WITH MEALS 12 6 0 August 05, 2024 12:00am August 27, 2024 11:55pm Start: 07-26-2013 End: 08-02-2013 take 1 tablet by mouth twice daily AUGMENTIN, 875-125MG (Oral Tablet) 1 Tablet bid for 7 days Quantity: 14 {Tablet} Refills: 0 Ordered: 26-Jul-2013 Annie Torres MD Start : 26-Jul-2013 End : 02-Aug-2013 Inactive Calcium Carbonate Antacid (CALCIUM CARBONATE PO) (14 sources) End: 05-25-2024 take 4000 mg by mouth once daily Calcium Carbonate Antacid (CALCIUM CARBONATE PO) Take 4,000 mg by mouth daily. 05/25/2024 Discontinued take 4000 mg by mouth once daily Calcium Carbonate Antacid (CALCIUM CARBONATE PO) Take 4,000 mg by mouth daily. Active take 4000 mg by mouth once daily Calcium Carbonate Antacid (CALCIUM CARBONATE PO) Take 4,000 mg by mouth daily. 0 Active take 4000 mg by mouth in the mor crystal Calcium Carbonate Antacid (CALCIUM CARBONATE PO) Take 4,000 mg by mouth in the morning and 4,000 mg in the evening. 0 Active calcium chloride 0.0014 meq/ml / potassium chloride 0.004 meq/ml / sodium chloride 0.103 meq/ml / sodium lactate 0.028 meq/ml injectable solution (2 sources) Start: 05-14-2023 End: 05-14-2023 lactated Ringer's (LR) infusion cholecalciferol 1.25 mg oral capsule (11 sources) Vitamin D Start: 09-23-2011 End: 07-16-2013 take 1 capsule by mouth every week VITAMIN D3, [id number] (Oral Capsule) 1 Capsule 2 xweek for 0 days Quantity: 8 {Capsule} Refills: 4 Ordered: 16-Jul-2013 MIKE Wright LPN Start : 23-Sep-2011 End : 16-Jul-2013 Inactive ciprofloxacin 500 mg oral tablet (11 sources) Quinolone Antimicrobial Start: 08-08-2014 End: 08-15-2014 take 1 tablet by mouth twice daily CIPRO, 500MG (Oral Tablet) 1 (one) Tablet bid for 7 days Quantity: 14 {Tablet} Refills: 0 Ordered: 08-Aug-2014 Pretty Johnson Start : 08-Aug-2014 End : 15-Aug-2014 Inactive clopidogrel 75 mg oral tablet (1 source) P2Y12 Platelet Inhibitor Start: 03-16-2024 End: 04-30-2024 take 1 tablet by mouth once daily Clopidogrel 75 mg Tablet Discontinued 75 mg PO DAILY 21 0 March 16, 2024 1:00am April 30, 2024 11:50am diazePAM 5 mg oral tablet (11 sources) Benzodiazepine Start: 01-19-2010 End: 08-30-2011 take 1 tablet by mouth twice daily as needed VALIUM, 5MG (Oral Tablet) 1 Tablet bid prn for 0 days Quantity: 20 {Tablet} Refills: 0 Ordered: 19-Jan-2010 Kya Wilkinson RN Start : 19-Jan-2010 End : 30-Aug-2011 Discontinued Comments: twenty Comment on above: twenty 0.4 ml enoxaparin sodium 100 mg/ml prefilled syringe (2 sources) Low Molecular Weight Heparin Start: 05-14-2023 End: 05-15-2023 inject 1 dose by subcutaneous injection twice daily 40 mg, SubCUTAneous, Every 12 hours scheduled (2 times per day), First dose on Fri05/14/23 at 2200, Phase II/On Unit, Indication of Use: Prophylaxis-DVT /PE famotidine 20 mg oral tablet (2 sources) Histamine-2 Receptor Antagonist Start: 05-15-2023 End: 05-15-2023 famotidine (Pepcid) tablet 20 mg famotidine (Pepcid) 20 mg in sodium chloride (PF) 0.9 % 10 mL injection (2 sources) Start: 05-14-2023 End: 05-15-2023 20 mg, IntraVENous, Administer over 2 Minutes, Every 12 hours scheduled (2 times per day), First dose on Fri05/14/23 at 2100, Phase II/On Unit, IV Push over minimum of 2 minutes - Dilute with 10 mL NS gabapentin 100 mg oral capsule (11 sources) Anti-epileptic Agent Start: 06-22-2008 End: 01-19-2010 take 1 capsule by mouth once daily NEURONTIN, 100MG (Oral Capsule) 1 (one) Capsule Daily for 0 days Quantity: 90 {Capsule} Refills: 1 Ordered: 19-Jan-2010 Maty Roldan RN Start : 22-Jun-2008 End : 19-Jan-2010 Inactive 500 ml glucose 50 mg/ml / potassium chloride 0.02 meq/ml / sodium chloride 4.5 mg/ml injection (2 sources) Start: 05-14-2023 End: 05-15-2023 take 100 mL intravenously every hour 100 mL/hr, IntraVENous, Continuous, Starting on Fri05/14/23 at 1745, Phase II/On Unit 0.5 ml heparin sodium, porcine [id number] unt/ml prefilled syringe (2 sources) Unfractionated Heparin, Anti-coagulant Start: 05-14-2023 End: 05-14-2023 heparin injection 5,000 Units 1 ml hydrALAZINE hydrochloride 20 mg/ml injection (2 sources) Arteriolar Vasodilator Start: 05-14-2023 End: 05-15-2023 take 20 mg intravenously every six hours as needed for hypertension 20 mg, IntraVENous, Every 6 hours PRN, high blood pressure, Give for SBP >160, hold for HR >100, 2nd line anti-HTN, Starting on Fri05/14/23 at 1734, Phase II/On Unit hydroCHLOROthiazide 12.5 mg / losartan potassium 50 mg oral tablet (20 sources) Thiazide Diuretic, Angiotensin 2 Receptor Lani Start: 02-08-2021 take 1 tablet by mouth once daily Losartan-Hydroc hlorothiazide Active 1 TABLET PO DAILY February 07, 2021 11:00pm Start: 07-06-2020 End: 04-30-2024 take 0.5 tablet by mouth once daily losartan-hydroCHLOROthiazide (Hyzaar) 50-12.5 MG tablet Indications: Hypertension Take 0.5 tablets by mouth daily. 07/06/2020 Active Start: 07-06-2020 take 1 tablet by marcus th at bedtime losartan-hydroCHLOROthiazide (Hyzaar) 50-12.5 MG tablet Indications: Hypertension Take 1 tablet by mouth before bedtime. 0 07/06/2020 Active 1 ml HYDROmorphone hydrochloride 1 mg/ml cartridge (2 sources) Opioid Agonist Start: 05-14-2023 End: 05-14-2023 HYDROmorphone (Dilaudid) injection 0.5 mg HYDROmorphone (Dilaudid) injection 0.25 mg (2 sources) Start: 05-14-2023 End: 05-15-2023 HYDROmorphone (Dilaudid) injection 0.25 mg labetalol hydrochloride 5 mg/ml injectable solution (2 sources) beta-Adrenergic Lani Start: 05-14-2023 End: 05-15-2023 take 20 mg intravenously every six hours as needed for hypertension 20 mg, IntraVENous, Every 6 hours PRN, high blood pressure, Give for SBP >160, hold for HR <50, 1st line anti-HTN, Starting on Fri05/14/23 at 1734, Phase II/On Unit lactobacillus rhamnosus gg [id number] unt oral capsule (11 sources) Start: 08-30-2011 End: 07-16-2013 take 1 capsule by mouth twice daily DUNIA, Bernice CELL (Oral Capsule) 1 Capsule bid for 0 days Quantity: 28 {Capsule} Refills: 0 Ordered: 16-Jul-2013 MIKE Wright LPN Start : 30-Aug-2011 End : 16-Jul-2013 Discontinued Comments: This order discontinued per [facility]. Comment on above: This order discontin ued per [facility]. levoFLOXacin 750 mg oral tablet (1 source) Quinolone Antimicrobial Start: 02-21-2023 End: 03-15-2024 take 1 tablet by mouth once daily Levofloxacin 750 mg tablet Discontinued 750 mg PO DAILY 5 5 0 February 21, 2023 1:00am March 15, 2024 7:10pm 1 ml LORazepam 2 mg/ml injection (2 sources) Benzodiazepine Start: 05-14-2023 End: 05-14-2023 LORazepam (Ativan) injection 0.5 mg meclizine hydrochloride 25 mg oral tablet (11 sources) Antiemetic Start: 01-19-2010 End: 08-30-2011 take 1 tablet by mouth every eight hours as needed ANTIVERT, 25MG (Oral Tablet) 1 Tablet q 8 hr prn for 0 days Quantity: 30 {Tablet} Refills: 0 Ordered: 19-Jan-2010 Kya Wilkinson RN Start : 19-Jan-2010 End : 30-Aug-2011 Discontinued metaxalone 800 mg oral tablet (11 sources) Start: 05-15-2006 End: 12-21-2007 take 1 tablet by mouth three times daily SKELAXIN, 800MG (Oral Tablet) 1 (one) Tablet TID for 0 days Refills: 0 Ordered: 15-May-2006 Maty Roldan RN Start : 15-May-2006 End : 21-Dec-2007 Inactive mometasone furoate 0.05 mg/actuat metered dose nasal spray (11 sources) Corticosteroid Start: 01-19-2010 End: 08-30-2011 NASONEX, 50MCG/ACT (Nasal Suspension) 2 (two) Suspension qd for 0 days Quantity: 1 {Suspension} Refills: 0 Ordered: 30-Aug-2011 Kya Wlikinson RN Start : 19-Jan-2010 End : 30-Aug-2011 Discontinued Multiple Vitamins-Iron (MULTIPLE VITAMIN/IRON PO) (20 sources) End: 05-20-2023 Multiple Vitamins-Iron (MULTIPLE VITAMIN/IRON PO) Take by mouth daily. 0 05/20/2023 Discontinued (Therapy completed) Multiple Vitamin s-Iron (MULTIPLE VITAMIN/IRON PO) Take by mouth daily. 0 Active Multiple Vitamin s-Iron (MULTIPLE VITAMIN/IRON PO) Take by mouth. 0 Active 1 ml naloxone hydrochloride 0.4 mg/ml injection (2 sources) Opioid Antagonist Start: 05-14-2023 End: 05-15-2023 naloxone (Narcan) injection 0.4 mg naproxen 500 mg oral tablet (20 sources) Nonsteroidal Anti-inflammatory Drug Start: 02-17-2009 End: 01-19-2010 take 1 tablet by mouth twice daily NAPROSYN, 500MG (Oral Tablet) 1 (one) Tablet BID for 0 days Quantity: 60 {Tablet} Refills: 0 Ordered: 19-Jan-2010 Maty Roldan RN Start : 17-Feb-2009 End : 19-Jan-2010 Inactive Start: 05-15-2006 End: 12-21-2007 take 2 tablets by mouth twice daily ALEVE, 220MG (Oral Tablet) 2 (two) Tablet Twice daily for 0 days Refills: 0 Ordered: 15-May-2006 Maty Roldan RN Start : 15-May-2006 End : 21-Dec-2007 Inactive ondansetron 4 mg oral tablet (6 sources) Serotonin-3 Receptor Antagonist Start: 05-14-2023 End: 05-22-2023 take 1 tablet by mouth every eight hours as needed for nausea and vomiting ondansetron (Zofran) 4 MG tablet Take 1 tablet (4 mg) by mouth every 8 hours as needed for nausea or vomiting for up to 7 days. 21 tablet 0 05/14/2023 05/22/2023 ondansetron ODT (Zofran-ODT) disintegrating tablet 4 mg (2 sources) Start: 05-14-2023 End: 05-15-2023 take 1 tablet by mouth every eight hours as needed for nausea and vomiting ondansetron ODT (Zofran-ODT) disintegrating tablet 4 mg oxyCODONE (8 sources) Opioid Agonist Start: 05-15-2023 End: 05-15-2023 take 1 tablet by mouth every four hours as needed for pain oxyCODONE (Roxicodone) immediate release tablet 5 mg Start: 05-14-2023 End: 05-22-2023 take 1 tablet by mouth every six hours as needed for pain oxyCODONE (Roxicodone) 5 MG immediate release tablet Indications: Morbid obesity with BMI of 45.0-49.9, adult (HCC) Take 1 tablet (5 mg) by mouth every 6 hours as needed for severe pain (7-10) for up to 7 days. 28 tablet 0 05/14/2023 05/22/2023 Prochlorperazine (2 sources) Phenothiazine Start: 05-14-2023 End: 05-15-2023 take 1 tablet by mouth every six hours as needed for nausea and vomiting prochlorperazine (Compazine) tablet 10 mg 5 ml sodium chloride 9 mg/ml injection (8 sources) Start: 05-14-2023 End: 05-15-2023 10 mL, IntraVENous, Every 12 hours scheduled (2 times per day), First dose on Fri05/14/23 at 2100, Phase II/On Unit Start: 05-14-2023 End: 05-15-2023 take 100 mL intravenously every hour as needed, then take 20 mL intravenously every hour as needed 5-250 mL/hr, IntraVENous, PRN, if patient receiving piggyback infusions and maintenance fluids are not ordered OR KVO fluids to protect IV site / prevent frequent line interruptions/ long duration, Starting on Fri05/14/23 at 1734, Phase II/On Unit, For piggyback infusion, administer at same rate as piggyback for a total of 25 mL. Enter 25 mL into dose field and piggyback rate into rate field of order. If piggyback is infusing at a rate less than 100 mL/hr, enter 25 mL into dose field and 100 mL/hr into rate field of order. For KVO fluids, enter rate of 20 mL/hr or less into rate field of order. Start: 05-14-2023 End: 05-15-2023 take 10 mL intravenously once as needed 10 mL, IntraVENous, PRN, line care, Starting on Fri05/14/23 at 1734, Phase II/On Unit, After every IV line use Start: 04-11-2023 End: 04-11-2023 sodium chloride 0.9 % infusi on traMADol hydrochloride 50 mg oral tablet (7 sources) Opioid Agonist Start: 09-19-2022 End: 03-15-2024 take 1 tablet by mouth every six hours as needed for pain Tramadol 50 mg tablet Discontinued 50 mg PO EVERY 6 HOURS as needed for pain 8 2 0 September 19, 2022 10:41pm March 15, 2024 7:10pm Cramp of both lower extremities Cramp and spasm ursodiol 300 mg oral capsule (9 sources) Bile Acid Start: 04-30-2023 End: 07-29-2023 take 1 capsule by mouth twice daily ursodiol (Actigall) 300 MG capsule Indications: Primary hypertension , Hypothyroidism, unspecified type , Morbid obesity with BMI of 45.0-49.9, adult (HCC) Take 1 capsule (300 mg) by mouth 2 times daily. 180 capsule 0 04/30/2023 07/29/2023 valsartan 80 mg oral tablet (11 sources) Angiotensin 2 Receptor Lani Start: 06-07-2022 End: 06-22-2008 take 1 tablet by mouth once daily Diovan 80 mg oral tablet 1 (one) Tablet daily for 0 days Quantity: 30 {Tablet} Refills: 1 Ordered: 07-Jun-2022 Ariana Vasquez DO, DO, Kathleen Start : 07-Jun-2022 End : 22-Jun-2008 Active Start: 06-07-2022 End: 06-22-2008 take 1 tablet by mouth once daily Diovan 80 mg oral tablet 1 (one) Tablet daily for 0 days Quantity: 30 {Tablet} Refills: 1 Ordered: 07-Jun-2022 Ariana aVsquez DO, DO, Kathleen Start : 07-Jun-2022 End : 22-Jun-2008 Active Start: 06-07-2022 End: 06-22-2008 take 1 tablet by mouth once daily Diovan 80 mg oral tablet 1 (one) Tablet daily for 0 days Quantity: 30 {Tablet} Refills: 1 Ordered: 07-Jun-2022 Ariana Vasquez DO, DO, Kathleen Start : 07-Jun-2022 End : 22-Jun-2008 Active Start: 06-07-2022 End: 06-22-2008 take 1 tablet by mouth once daily Diovan 80 mg oral tablet 1 (one) Tablet daily for 0 days Quantity: 30 {Tablet} Refills: 1 Ordered: 07-Jun-2022 Ariana Vasquez DO, DO, Kathleen Start : 07-Jun-2022 End : 22-Jun-2008 Active Start: 06-07-2022 End: 06-22-2008 take 1 tablet by mouth once daily Diovan 80 mg oral tablet 1 (one) Tablet daily for 0 days Quantity: 30 {Tablet} Refills: 1 Ordered: 07-Jun-2022 Christina DO, Ariana Vasquez DO Ariana Start : 07-Jun-2022 End : 22-Jun-2008 Active Start: 06-07-2022 End: 06-22-2008 take 1 tablet by mouth once daily Diovan 80 mg oral tablet 1 (one) Tablet daily for 0 days Quantity: 30 {Tablet} Refills: 1 Ordered: 07-Jun-2022 Christina DO, Ariana Vasquez DO Ariana Start : 07-Jun-2022 End : 22-Jun-2008 Active Start: 10-25-2020 End: 06-22-2008 take 1 tablet by mouth once daily Diovan 80 MG Oral Tablet 1 (one) Tablet daily for 0 days Quantity: 30 {Tablet} Refills: 1 Ordered: 25-Oct-2020 Christina DO Ariana Vasquez DO Ariana Start : 25-Oct-2020 End : 22-Jun-2008 Active Start: 10-25-2020 End: 06-22-2008 take 1 tablet by mouth once daily Diovan 80 MG Oral Tablet 1 (one) Tablet daily for 0 days Quantity: 30 {Tablet} Refills: 1 Ordered: 25-Oct-2020 Christina DO Ariana Vasquez DO Ariana Start : 25-Oct-2020 End : 22-Jun-2008 Active Start: 10-25-2020 End: 06-22-2008 take 1 tablet by mouth once daily Diovan 80 MG Oral Tablet 1 (one) Tablet daily for 0 days Quantity: 30 {Tablet} Refills: 1 Ordered: 25-Oct-2020 Christina DO Ariana Vasquez DO Ariana Start : 25-Oct-2020 End : 22-Jun-2008 Active Start: 10-25-2020 End: 06-22-2008 take 1 tablet by mouth once daily Diovan 80 MG Oral Tablet 1 (one) Tablet daily for 0 days Quantity: 30 {Tablet} Refills: 1 Ordered: 25-Oct-2020 Christina DO Ariana Vasquez DO Ariana Start : 25-Oct-2020 End : 22-Jun-2008 Active Start: 02-04-2008 End: 06-22-2008 take 1 tablet by mouth once daily DIOVAN, 80MG (Oral Tablet) 1 (one) Tablet Daily for 0 days Quantity: 30 {Tablet} Refills: 1 Ordered: 04-Feb-2008 Maty Roldan RN Start : 04-Feb-2008 End : 22-Jun-2008 Inactive VITAMIN D, CHOLECALCIFEROL, PO (20 sources) Start: 02-19-2023 End: 05-20-2023 VITAMIN D, CHOLECALCIFEROL, PO Take 1,000 Int'l Units by mouth daily. Last dose 05/01/23 0 02/19/2023 05/20/2023 Discontinued (Therapy completed) Start: 02-19-2023 VITAMIN D, CHO LECALCIFEROL, PO Take 1,000 Int'l Units by mouth daily. Last dose 05/01/23 0 02/19/2023 Active Start: 02-19-2023 VITAMIN D, CHO LECALCIFEROL, PO Take 1,000 Int'l Units by mouth daily. 0 02/19/2023 Active Problems Active Problems Problem Classification Problem Date Documented Date Episodic/Chronic Abdominal pain (20 sources) Acute abdominal pain; Translations: [Abdominal pain, acute, left lower quadrant] 02-20-2015 Episodic Comment on above: really think diverti culitis. did better on atb. not think need ct scan if returns then will scan. last colonscopy about 5 years Acute cerebrovascular disease (4 sources) Cerebrovascular accident; Translations: [Cerebral infarction, unspecified] Onset: 08-05-2024 08-13-2024 Chronic Asthma (2 sources) Mild intermittent asthma; Translations: [Mild intermittent asthma, uncomplicated] 02-05-2023 Chronic Cardiac dysrhythmias (2 sources) Palpitations; Translations: [Palpitations] Onset: 09-01-2024 09-05-2024 Episodic Conditions associated with dizziness or vertigo (20 sources) Benign paroxysmal positional vertigo; Translations: [Benign paroxysmal positional vertigo] Resolved: 09-20-2011 07-16-2013 Episodic Deficiency and other anemia (20 sources) Iron deficiency anemia, unspecified; Translations: [Iron deficiency anemia] Episodic Disorders of lipid metabolism (20 sources) Hypercholesterolemia; Translations: [Hypercholesterolemia] Onset: 03-21-2023 01-10-2015 Chronic Disorders of teeth and jaw (2 sources) Periapical abscess; Translations: [Periapical abscess without sinus] 08-04-2024 Episodic Esophageal disorders (5 sources) Gastroesophageal reflux disease without esophagitis; Translations: [Gastro-esophageal reflux disease without esophagitis] 04-11-2023 Chronic Essential hypertension (20 sources) Hypertensive disorder; Translations: [Benign essential hypertension] Onset: 12-24-2022 01-10-2015 Chronic Fluid and electrolyte disorders (7 sources) Mild dehydration; Translations: [Dehydration] 09-19-2022 Episodic Genitourinary symptoms and ill-defined conditions (20 sources) Urinary symptoms ; Translations: [Dysuria] 08-08-2014 Episodic Hypertension with complications and secondary hypertension (7 sources) Secondary hypertension; Translations: [Secondary hypertension, unspecified] Onset: 05-15-2023 11-14-2023 Chronic Malaise and fatigue (20 sources) Fatigue; Translations: [Fatigue] Onset: 08-30-2011 Resolved: 09-20-2011 07-16-2013 Episodic Melanomas of skin (2 sources) History of malignant melanoma of the skin; Translations: [Personal history of malignant melanoma of skin] 02-05-2023 Episodic Mood disorders (20 sources) Bipolar disorder; Translations: [Bipolar disorder, unspecified] Resolved: 04-22-2013 03-17-2015 Chronic Mycoses (3 sources) Candidiasis of skin; Translations: [Candidiasis of skin and nail] 08-14-2023 Episodic Nonspecific chest pain (20 sources) Chest pain; Translations: [Chest pain, unspecified] Resolved: 09-20-2011 02-21-2015 Episodic Nutritional deficiencies (20 sources) Vitamin D deficiency; Translations: [Vitamin D deficiency, unspecified] Onset: 04-24-2024 02-20-2015 Chronic Other connective tissue disease (20 sources) Pain in upper limb; Translations: [Arm pain] 08-08-2014 Episodic Other connective tissue disease (20 sources) Foot pain; Translations: [Foot pain] Resolved: 09-20-2011 07-16-2013 Episodic Other connective tissue disease (11 sources) Plantar fasciitis; Translations: [Plantar fasciitis] 08-08-2014 Episodic Other connective tissue disease (20 sources) Spasm of cervical paraspinous muscle; Translations: [Spasm of cervical paraspinous muscle] Resolved: 09-20-2011 02-24-2015 Episodic Other connective tissue disease (7 sources) Bilateral cramp of muscle of lower limbs; Translations: [Cramp and spasm] 09-19-2022 Episodic Other diseases of veins and lymphatics (20 sources) Lymphedema; Translations: [Other lymphedema] 08-19-2013 Chronic Other diseases of veins and lymphatics (19 sources) Lymphedema of upper limb; Translations: [Lymphedema of arm] 08-08-2014 Chronic Comment on above: worseninguses rt arm and keeps it bent Other diseases of veins and lymphatics (6 sources) Other lymphedema Chronic Other lower respiratory disease (3 sources) Dyspnea; Translations: [Shortness of breath] 02-05-2023 Episodic Other nervous system disorders (1 source) Paresthesia; Translations: [Paresthesia of skin] 03-24-2024 Episodic Other non-traumatic joint disorders (7 sources) Joint pain; Translations: [Pain in unspecified joint] 08-14-2023 Episodic Other nutritional; endocrine; and metabolic disorders (20 sources) Morbid obesity; Translations: [Morbid (severe) obesity due to excess calories] Onset: 12-23-2022 12-23-2022 Chronic Other nutritional; endocrine; and metabolic disorders (7 sources) Obesity caused by energy imbalance; Translations: [Morbid (severe) obesity due to excess calories] Onset: 05-18-2024 05-14-2023 Chronic Other nutritional; endocrine; and metabolic disorders (1 source) Severe obesity; Translations: [Class 2 severe obesity due to excess calories with serious comorbidity and body mass index (BMI) of 35.0 to 35.9 in adult (HCC)] 05-18-2024 Chronic Other nutritional; endocrine; and metabolic disorders (1 source) Hypercalcemia; Translations: [Hypercalcemia] 04-30-2024 Chronic Other nutritional; endocrine; and metabolic disorders (2 sources) Other obesity due to excess calories; Translations: [Other obesity due to excess calories] Onset: 11-18-2024 Chronic Other nutritional; endocrine; and metabolic disorders (2 sources) Hypercalcemia; Translations: [Hypercalcemia] Onset: 05-24-2024 Chronic Other nutritional; endocrine; and metabolic disorders (1 source) Morbid (severe) obesity due to excess calories; Translations: [Morbid (severe) obesity due to excess calories (HCC)] Onset: 05-18-2024 Chronic Other nutritional; endocrine; and metabolic disorders (2 sources) Body mass index (BMI) 35.0-35.9, adult; Translations: [Body mass index (BMI) 35.0-35.9, adult] Onset: 05-18-2024 Chronic Other skin disorders (2 sources) Skin finding; Translations: [Excessive and redundant skin and subcutaneous tissue] 11-18-2024 Episodic Other skin disorders (2 sources) Excessive and redundant skin and subcutaneous tissue; Translations: [Excessive and redundant skin and subcutaneous tissue] Onset: 11-18-2024 Episodic Other upper respiratory infections (20 sources) Acute sinusitis; Translations: [Sinusitis, acute] Resolved: 09-20-2011 02-21-2015 Episodic Residual codes; unclassified (2 sources) Finding related to sleep; Translations: [Sleep apnea, unspecified] 02-05-2023 Chronic Residual codes; unclassified (9 sources) History of sleeve gastrectomy; Translations: [Acquired absence of stomach [part of]] 05-20-2023 Episodic Syncope (1 source) Near syncope; Translations: [Syncope and collapse] 04-04-2024 Episodic Thyroid disorders (20 sources) Hypothyroidism; Translations: [Hypothyroidism, unspecified] Onset: 08-14-2018 12-24-2022 Chronic Transient cerebral ischemia (2 sources) Transient cerebral ischemia; Translations: [Transient cerebral ischemic attack, unspecified] 08-13-2024 Chronic Comment on above: Patient is listed as having brain TIA in her medical record. It is possible that she had 3 very tiny embolic strokes. She has no neurologic residual at all.Patient is currently on aspirin 81 mg p.o. daily. Plavix 75 mg for 3 weeks has been completed and is now discontinued.Patient had been on atorvastatin 40 mg p.o. daily but she is not now on it and it may have been discontinued on the basis of not having a renewed prescription for atorvastatin.I did review her lipid profile. It does appear to be fairly good and may have been a result of having had a gastric sleeve performed with significant weight loss resulting in a lowering of her lipid profile. 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 Unclassified (6 sources) Sinusitis,acute (461.9) Unclassified (20 sources) Unclassified (6 sources) VITAMIN D DEFICIENCY, NOS (268.9) Unclassified (12 sources) Cervical Spasm (728.85) Unclassified (9 sources) Age more than 65 years; Translations: [Over 65 years old] 02-07-2021 Unclassified (1 source) Obesity, class 2; Translations: [Obesity, class 2] Onset: 05-18-2024 Urinary tract infections (2 sources) Acute urinary tract infection; Translations: [Urinary tract infection, site not specified] 02-17-2023 Episodic Viral infection (9 sources) Disease caused by 2019-nCoV; Translations: [COVID-19] 02-07-2021 Episodic Past or Other Problems Problem Classification Problem Date Documented Da te Episodic/Chronic Deficiency and other anemia (20 sources) Iron deficiency anemia; Translations: [Iron deficiency anemia, unspecified] Onset: 03-21-2023 Resolved: 09-20-2011 03-17-2015 Episodic Diabetes mellitus without complication (17 sources) Prediabetes; Translations: [Prediabetes] Onset: 04-24-2024 12-25-2022 Episodic Essential hypertension (1 source) Essential hypertension Melanomas of skin (11 sources) Melanoma of skin, site unspecified; Translations: [Melanoma, Site Unspecified] Resolved: 07-16-2013 07-16-2013 Chronic Nutritional deficiencies (20 sources) Iron deficiency; Translations: [Iron deficiency] Onset: 05-20-2023 12-25-2022 Episodic Other lower respiratory disease (1 source) Shortness of breath; Translations: [Shortness of breath] Onset: 04-23-2024 Episodic Other nervous system disorders (2 sources) Paresthesia of skin; Translations: [Paresthesia of skin] Onset: 03-17-2024 Episodic Other non-traumatic joint disorders (2 sources) Pain in unspecified joint; Translations: [Pain in unspecified joint] Onset: 04-24-2024 Episodic Other nutritional; endocrine; and metabolic disorders (20 sources) Body mass index 40+ - severely obese; Translations: [Morbid (severe) obesity due to excess calories] Onset: 05-14-2023 Resolved: 11-14-2023 12-24-2022 Chronic Other screening for suspected conditions (not mental disorders or infectious disease) (20 sources) Breast neoplasm screening status; Translations: [Breast cancer screening] Onset: 05-24-2024 Resolved: 07-16-2013 07-16-2013 Episodic Residual codes; unclassified (20 sources) History of clinical finding in subject; Translations: [Personal history of other specified conditions] Onset: 05-07-2023 05-07-2023 Episodic Residual codes; unclassified (20 sources) Difficult venous access; Translations: [Other specified health status] Onset: 05-07-2023 05-07-2023 Episodic Residual codes; unclassified (2 sources) Acquired absence of stomach [part of]; Translations: [Acquired absence of stomach (part of)] Onset: 05-18-2024 Episodic Spondylosis; intervertebral disc disorders; other back problems (20 sources) Neck pain; Translations: [Neck pain] Onset: 12-24-2022 Resolved: 08-22-2008 07-16-2013 Episodic Unclassified (6 sources) Abdominal Pain,LLQ (789.04) Unclassified (11 sources) Unspecified Diagnosis 08-08-2014 Unclassified (1 source) UTI symptoms Unclassified (3 sources) Lymphedema of arm Unclassified (3 sources) Breast cancer screening (V76.10) Unclassified (2 sources) Skin finding 11-18-2024 Unclassified (1 source) Obesity, class 2; Translations: [Obesity, class 2] Onset: 05-18-2024 Urinary tract infections (2 sources) Urinary tract infections Results Test Name Value Interpretation Reference Range Facility Office Visiton 11-18-2024 Follow-up visit [id number] Sloane Rinaldi 1950 F Date Provider Department Center 11/18/2024 [id number] [facility] None Family History Problem Relation Age of Onset Asthma Father Cancer Sister Hypertension Brother Heart disease Brother Diabetes Brother Obesity Brother Diabetes Paternal Grandmother Vision loss Paternal Grandmother Family Status - Relation Status Age at Mother Father Sister Alive Brother Alive Paternal Grandmother Level of Service:01208 [place] OFFICE/OUTPATIENT ESTABLISHED HIGH MDM 40 MIN Reason for Visit and Comments: Bariatrics Post Op Follow-up [884] - Pop fu 18m [facility] Progress Noteon 11-18-2024 Progress Note [facility] ROOMING NOTE POST WEIGHT LOSS SURGERY FOLLOW UP Patient: Sloane Rinaldi Service Date: 11/18/2024 Patient is 18 month(s) s/p Sleeve Gastrectomy Today's Metrics: Post-Surgical Weight Loss Date: 11/18/24 Height: 5' 1.25 (155.6 cm) Weight: 189 lb 3.2 oz (85.8 kg) BMI: 35.45 Weight Change: -4.2 lbs Total Weight Change: -74.4 lbs % EBWL: 48% Post-op Weight Metrics: Post-Surgical Weight Loss Date: 11/18/24 Height: 5' 1.25 (155.6 cm) Weight: 189 lb 3.2 oz (85.8 kg) BMI: 35.45 Weight Change: -4.2 lbs Total Weight Change: -74.4 lbs % EBWL: 48% (From Surgical Weight Loss Tracker) Patient has the following questions: None Reported Pain: Patient rates pain on scale 0-10 as: 0 Exercise Compliance: Exercising: yes If yes: Type: walking Times per week: 5 Min per session: 30 Falls Risk Assessment Patient does take medications which affect BP or mental status Patient does not t have newly prescribed or changed dosage of medications within past 30 days which affect BP or mental status Patient has not fallen in the past 2 months Patient does not t demonstrate unsteady gait Patient uses the following ambulatory assistive devices: none Patient states the presence of the following traits which increases risk of fall: none Patient is not on home O2 Pre-op Weight Metrics: Labs Completed: yes - If NO, patient instructed to get labs drawn today or LYSSA If YES: [facility]? yes If yes see Labs Tab Labs completed at [facility] facility? N/A If yes see Encounters Tab - Orders only - Historical Provider - Date: Completed by: Shanda Medina MA [facility] Progress Note [facility] SURGICAL WEIGHT LOSS MANAGEMENT PROGRAM POST-OPERATIVE MEDICAL WEIGHT LOSS MANAGEMENT - 18 MONTH VISIT INITIAL PHYSICIAN EVALUATION Patient: Sloane Rinaldi Service Date: 11/18/2024 Date of : 1950 Patient History/Assessment Summary: 73 y.o. year old female. Height: 5' 1.25 (155.6 cm), Weight: 189 lb 3.2 oz (85.8 kg), Body mass index is 35.46 kg/m?. kg/m2. Previously undergone weight loss surgery (Sleeve, May 2023, Dr. Jerrod Jaeger). They are here for the 18 month post-weight loss surgery follow up visit. This is the patient's first medical evaluation for this service. They deny nausea, vomiting, dysphagia, abdominal pain, or any GERD symptoms. Currently is not taking a PPI. This patient?s excess weight is causing: HTN Using CPAP: No Patient states diet and exercise is going well. Patient is compliant with prescribed multivitamins and supplements. Labs were Completed PLAN: ROS: I reviewed New Patient Assessment form with the patient, which is located in the [employer] tab History: Medical History[1] Surgical History[2] Family History[3] Social History Tobacco Use Smoking status: Never Smokeless tobacco: Never Substance Use Topics Alcohol use: Not Currently Alcohol/week: 1.0 standard drink of alcohol Types: 1 Glasses of wine per week Comment: About 1 per month Physical Examination: BP 126/82 Pulse 96 Ht 5' 1.25 (1.556 m) Wt 189 lb 3.2 oz (85.8 kg) BMI 35.46 kg/m? General: Awake, alert, oriented x 4, No apparent distress. No evidence of respiratory distress Musculoskeletal: Ambulates without difficulty without assistance Neurological: Intact x 4 extremities, no focal deficits notes. Current Diet Eating 5x daily Dinner: 5:00 pm After dinner: occasional (elvia crackers) Protein: chicken, peñaloza, eggs, fish, protein shakes/bars Water: 64-90 ounces daily Activity: walking Current Eating Behaviors Reviewed the Impact on Life Questionnaire with patient; in which she describes the impact of obesity on her life. (in [employer]) Plan: --Obesity Class II Tobyve, May 2023, Dr. Jerrod Jaeger Diet and exercise (DE) Diet recommendations provided to patient; they understood and agreed with plan. Continue physician-supervise d weight loss management Patient should continue to attend all physician follow up appointments for life Maximum weight pre-surgery: 264 lbs Lowest post-surgery weight: 188 lbs -Discussed cessation of the following prior to and after surgery: carbonation, caffeine, NSAIDs, alcohol, tobacco. Patient understood and agreed. Anti obesity medications may be considered in the future, this was discussed with Ms. Rinaldi --HTN: Management per outpatient providers, Discussed blood pressure could decrease with weight loss, potentially resulting in dizziness/lighthead edness (which can result in fall/injury). Patient understood. Adequate hydration and follow up with PCP for abnormal blood pressures and possible medication adjustments discussed - patient understood and agreed. Stable Monitor BP Management per outpatient providers --Pre-diabetes, Management per outpatient providers, Discussed blood glucose could decrease with weight loss. Patient understood. They are aware of symptoms of hypoglycemia and treatment of hypoglycemia. Patient will follow up with their outpatient providers --TIA: no acute symptoms, Management per outpatient providers The patient is in no distress. The patient denies chest pain and denies shortness of breath. The patient answers all questions and follows all commands appropriately. November 2024: I reviewed all labs, she understood and agreed with the plan Elevated vitamin D: continue vitamin D supplement, no toxicity symptoms, recheck vitamin D Elevated ferritin (normal iron): I recommended she follow up with primary care provider, we discussed potential issues with the liver, she understood and agreed to follow with PCP Elevated B12: continue multivitamin and B12 supplement for now as vitamin B is water soluble and excess is naturally excreted, recheck B12 Elevated LDL (bad cholesterol) - she discussed with primary care provider, she has been prescribed an anti-hyperlipidemic medications, continue follow up with PCP --Labs reviewed - management per ordering providers. November 2024: all post-operative labs Protein goal of 1g protein per 1 kg of ideal body weight Patient instructed to continue post-weight loss surgery diet recommendations. Patient instructed to continue to monitor for signs and symptoms of GERD Psych concerns : no Excessive skin concerns: yes, referred to plastic surgery with patient's permission Plan of care discussed with patient, all questions answered, they agree with plan of care. Medical decision making: Patient's medical conditions place them at a moderate risk of complications, morbidity, and mortality. (more content not included)... [facility] TSH DL <= 0.005 mIU/L QnOrde red By: Bryan Barboza on 11-11-2024 TSH Qn 1.320 uIU/mL 0.300-4.200 [facility] Thyroid Stim Hormone (TSH)on 11-11-2024 TSH 1.320 uIU/mL Normal 0.300-4.200 [facility] Comment on above: Order Comment: Order Date: 11/11/24Order Info: [id number] - TSH Performed By: #### L [id number] ####[facility] [id number] [place], [place], [id number] CBC (HEMOGRAM)on 11-06-2024 Erythrocyte distribution width (RBC) [Ratio] 12.6 % Normal 11.5-15.0 [facility] Comment on above: Order Comment: These orders are set for an approximate date - they can be drawn up to 3 months prior to the Expected Date on this Req. Please send results to: Bryan Barboza [address] [place] 105 [facility] [address] - [phone] And if not done at a [place] [facility], please send to: [facility] - [address] [place] [address] Patient Name: Sloane Rinaldi - 1950 Order Created by : Sherice Caruso Performed By: #### L AB17, [id number], LAB68, LAB69, LAB67, LAB18 #### Coo: GINO FLANAGAN ([id number]) [facility] ([address] Hematocrit (Bld) [Volume fraction] 40.4 % Normal 35.0-47.0 [facility] Comment on above: Order Comment: These orders are set for an approximate date - they can be drawn up to 3 months prior to the Expected Date on this Req. Please send results to: Bryan Barboza [address] 105 [facility] [address] - [phone] And if not done at a [place] [facility], please send to: [address] 960 [facility], [address] Patient Name: Sloane Ruelas 1950 Order Created by : Sherice Caruso Performed By: #### L AB17, [id number], LAB68, LAB69, LAB67, LAB18 #### Coo: GINO FLANAGAN ([id number]) [facility] (SWRLAB) [address] [place] [address] Hemoglobin (Bld) [Mass/Vol] 13.8 g/dL Normal 11.7-16.0 [facility] Comment on above: Order Comment: These orders are set for an approximate date - they can be drawn up to 3 months prior to the Expected Date on this Req. Please send results to: Bryan Ruelas [facility] 105 [facility] [address] - [phone] And if not done at a [place] [facility], please send to: [facility] - [address] [place] [address], [address] Patient Name: Sloane Ruelas 1950 Order Created by : Sherice Caruso Performed By: #### L AB17, [id number], LAB68, LAB69, LAB67, LAB18 #### Coo: GINO FLANAGAN ([id number]) [facility] (SWRLAB) [address] [place] [address] MCH (RBC) [Entitic mass] 31.4 pg Normal 26.0-34.0 [facility] Comment on above: Order Comment: These orders are set for an approximate date - they can be drawn up to 3 months prior to the Expected Date on this Req. Please send results to: Bryan Ruelas [facility] 105 [facility] [address] - [phone] And if not done at a [place] [facility], please send to: [address], [address] [facility], [address] Patient Name: Sloane Ruelas 1950 Order Created by : Sherice Caruso Performed By: #### L AB17, [id number], LAB68, LAB69, LAB67, LAB18 #### Coo: GINO FLANAGAN ([id number]) [facility] (SWRLAB) [address] [place] [address] MCHC 34.2 % Normal 30.5-36.0 [facility] Comment on above: Order Comment: These orders are set for an approximate date - they can be drawn up to 3 months prior to the Expected Date on this Req. Please send results to: Bryan Barboza [address] [facility] [place] 105 [facility] [phone] - [phone] And if not done at a [facility], please send to: [address] [address] Patient Name: Sloane Ruelas 1950 Order Created by : Sherice Caruso Performed By: #### L AB17, [id number], LAB68, LAB69, LAB67, LAB18 #### Coo: GINO FLANAGAN ([id number]) [facility] (SWRLAB) [address] [place] [address] MCV (RBC) [Entitic vol] 91.8 fL Normal 77.0-99.0 [facility] Comment on above: Order Comment: These orders are set for an approximate date - they can be drawn up to 3 months prior to the Expected Date on this Req. Please send results to: Bryan Barboza [address] [facility] 105 [facility] [phone] - [phone] And if not done at a [place] [facility], please send to: [address], [address] Patient Name: Sloane Ruelas 1950 Order Created by : Sherice Caruso Performed By: #### L AB17, NMC027, LAB68, LAB69, LAB67, LAB18 #### Coo: GINO FLANAGAN ([id number]) [facility] LYNNETTE RITTMAN (SWRLAB) [address] [place] [address] Platelet mean volume (Bld) [Entitic vol] 9.1 fL Normal 9.0-12.7 [facility] Comment on above: Order Comment: These orders are set for an approximate date - they can be drawn up to 3 months prior to the Expected Date on this Req. Please send results to: Bryan Alie Bernabe[address] 105 [facility] [address] - [phone] And if not done at a [place] [facility], please send to: [facility] - [address] [place] [address], [place] [address] [facility], [address] Patient Name: Sloane Rinaldi - 1950 Order Created by : Sherice Caruso Result Comment: MPV is a calculated measurement using platelet volume ratio Performed By: #### L AB17, [id number], LAB68, LAB69, LAB67, LAB18 #### Coo: GINO FLANAGAN ([id number]) [facility] LYNNETTE RITTMAN (SWRLAB) [address] [place] [address] [place] Platelets (Bld) [#/Vol] 234 10*3/uL Normal 140-440 [facility] Comment on above: Order Comment: These orders are set for an approximate date - they can be drawn up to 3 months prior to the Expected Date on this Req. Please send results to: Bryan Bernabe[address] 105 [facility] [phone] - [phone] And if not done at a [place] [facility], please send to: [facility] - [address] [place] [address], [address] [facility], [address] Patient Name: Sloane Rinaldi - 1950 Order Created by : Sherice Caruso Performed By: #### L AB17, [id number], LAB68, LAB69, LAB67, LAB18 #### Coo: GINO FLANAGAN ([id number]) [facility] L[place]NNETTE RITTMAN (SWRLAB) [address] [place] [address] [place] RBC (Bld) [#/Vol] 4.40 10*6/uL Normal 3.80-5.20 [facility] Comment on above: Order Comment: These orders are set for an approximate date - they can be drawn up to 3 months prior to the Expected Date on this Req. Please send results to: Bryan Bernabe[address] 105 [facility] [id number] - [phone] And if not done at a [place] [facility], please send to: [address] [address] Patient Name: Sloane Rinaldi - 1950 Order Created by : Sherice Caruso Performed By: #### L AB17, [id number], LAB68, LAB69, LAB67, LAB18 #### Coo: GINO FLANAGAN ([id number]) [facility] [employer] [facility] (SWRLAB) [address] [place] [address] WBC (Bld) [#/Vol] 5.7 10*3/uL Normal 3.6-10.7 [facility] Comment on above: Order Comment: These orders are set for an approximate date - they can be drawn up to 3 months prior to the Expected Date on this Req. Please send results to: Bryan Barboza [address] 105 [facility] [phone] - [phone] And if not done at a [place] [facility], please send to: [address], [address] Patient Name: Sloane Rinaldi - 1950 Order Created by : Sherice Caruso Performed By: #### L AB17, [id number], LAB68, LAB69, LAB67, LAB18 #### Coo: GINO FLANAGAN ([id number]) [facility] LYNNETTE RITTMAN (SWRLAB) [address] [place] [address] COMPREHENSIVE METABOLIC PANE Dav 11-06-2024 Albumin [Mass/Vol] 3.5 g/dL Normal 3.4-4.8 [facility] Comment on above: Order Comment: These orders are set for an approximate date - they can be drawn up to 3 months prior to the Expected Date on this Req. Please send results to: Bryan Barboza [facility] 105 [facility] [phone] - [phone] And if not done at a [place] [facility], please send to: [facility] - [address] [place] [address], [address] Patient Name: Sloane Ruelas 1950 Order Created by : Sherice Caruso Performed By: #### L AB17, [id number], LAB68, LAB69, LAB67, LAB18 #### Coo: GINO FLANAGAN ([id number]) [facility] [employer]TM[facility] (RLAB) [address] [place] [address] ALP [Catalytic activity/Vol] 78 U/L Normal 40-150 [facility] Comment on above: Order Comment: These orders are set for an approximate date - they can be drawn up to 3 months prior to the Expected Date on this Req. Please send results to: Bryan Alie Barboza [place] [facility] 105 [facility] [phone] - [phone] And if not done at a [place] [facility], please send to: [address], [address] Patient Name: Sloane Ruelas 1950 Order Created by : Sherice Caruso Performed By: #### L AB17, WZH146, LAB68, LAB69, LAB67, LAB18 #### Coo: GINO FLANAGAN ([id number]) [facility] LYNNETTE RITTMAN (SWRLAB) [address] [place] [address] ALT [Catalytic activity/Vol] 15 U/L Normal <30 [facility] Comment on above: Order Comment: These orders are set for an approximate date - they can be drawn up to 3 months prior to the Expected Date on this Req. Please send results to: Bryan Barboza - [address] [facility] 105 [facility] [address] - [phone] And if not done at a [place] [facility], please send to: [facility] - [address] [place] [address], [address] Patient Name: Sloane Rinaldi - 1950 Order Created by : Sherice Caruso Performed By: #### L AB17, FJD003, LAB68, LAB69, LAB67, LAB18 #### Coo: GINO FLANAGAN ([id number]) [facility] [employer]TM[facility] (SWRLAB) [address] [place] [address] Anion gap [Moles/Vol] 7 mmol/L Normal 3-13 [facility] Comment on above: Order Comment: These orders are set for an approximate date - they can be drawn up to 3 months prior to the Expected Date on this Req. Please send results to: Bryan Ruelas [facility] Frank [address] [facility] [place] 105 [facility] [address] - [phone] And if not done at a [place] [facility], please send to: [facility] - [address] [place] [address], [address] Patient Name: Sloane Rinaldi - 1950 Order Created by : Sherice Caruso Performed By: #### L AB17, BEC673, LAB68, LAB69, LAB67, LAB18 #### Coo: GINO FLANAGAN ([id number]) [facility] LYNNETTE [employer]TMAN (SWRLAB) [address] [place] [address] AST [Catalytic activity/Vol] 19 U/L Normal <34 [facility] Comment on above: Order Comment: These orders are set for an approximate date - they can be drawn up to 3 months prior to the Expected Date on this Req. Please send results to: [address] 105 [facility] [address] - [phone] And if not done at a [place] [facility], please send to: [facility] - [address] [place] [address], [address] Patient Name: Sloane Rinaldi - 1950 Order Created by : Sherice Caruso Performed By: #### L AB17, [id number], LAB68, LAB69, LAB67, LAB18 #### Coo: GINO FLANAGAN ([id number]) [facility] (SWRLAB) [address] [place] [address] Bilirubin [Mass/Vol] 0.8 mg/dL Normal <1.2 [facility] Comment on above: Order Comment: These orders are set for an approximate date - they can be drawn up to 3 months prior to the Expected Date on this Req. Please send results to: Bryan Barboza [facility] 105 [facility] [phone] - [phone] And if not done at a [place] [facility], please send to: [facility] - [address] [place] [address], [address] Patient Name: Sloane Rinaldi - 1950 Order Created by : Sherice Caruso Performed By: #### L AB17, JEG494, LAB68, LAB69, LAB67, LAB18 #### Coo: GINO FLANAGAN ([id number]) [facility] (SWRLAB) [address] [place] [address] Calcium [Mass/Vol] 9.8 mg/dL Normal 8.8-10.0 [facility] Comment on above: Order Comment: These orders are set for an approximate date - they can be drawn up to 3 months prior to the Expected Date on this Req. Please send results to: Bryan Barboza - [address] [facility] [place] 105 [facility] [phone] - [phone] And if not done at a [place] [facility], please send to: [address], [address] Patient Name: Sloane Rinaldi - 1950 Order Created by : Sherice Caruso Performed By: #### L AB17, PLM642, LAB68, LAB69, LAB67, LAB18 #### Coo: GINO FLANAGAN ([id number]) [facility] RITTMAN (SWRLAB) [address] [place] [address] [place] Chloride [Moles/Vol] 107 mmol/L Normal 98-107 [facility] Comment on above: Order Comment: These orders are set for an approximate date - they can be drawn up to 3 months prior to the Expected Date on this Req. Please send results to: Bryan Barboza - [address] [place] [phone] - [phone] And if not done at a [place] [facility], please send to: [address], [address] Patient Name: Sloane Rinaldi - 1950 Order Created by : Sherice Caruso Performed By: #### L AB17, WIS321, LAB68, LAB69, LAB67, LAB18 #### Coo: GINO FLANAGAN ([id number]) [facility] RITTMAN (SWRLAB) [address] [place] [address] [place] CO2 [Moles/Vol] 27 mmol/L Normal 23-31 [facility] Comment on above: Order Comment: These orders are set for an approximate date - they can be drawn up to 3 months prior to the Expected Date on this Req. Please send results to: Bryan Barboza - [address] [place] 105 [facility] [phone] - [phone] And if not done at a [place] [facility], please send to: [address], [address] Patient Name: Sloane Ruelas 1950 Order Created by : Sherice Caruso Performed By: #### L AB17, [id number], LAB68, LAB69, LAB67, LAB18 #### Coo: GINO FLANAGAN ([id number]) [facility] LYNNETTE RITTMAN (SWRLAB) [address] [place] [address] Creatinine [Mass/Vol] 0.75 mg/dL Normal 0.57-1.11 [facility] Comment on above: Order Comment: These orders are set for an approximate date - they can be drawn up to 3 months prior to the Expected Date on this Req. Please send results to: Bryan [place] 105 [facility] [address] - [phone] And if not done at a [place] [facility], please send to: [address], [address] Patient Name: Sloane Ruelas 1950 Order Created by : Sherice Caruso Performed By: #### L AB17, [id number], LAB68, LAB69, LAB67, LAB18 #### Coo: GINO FLANAGAN ([id number]) [facility] LYNNETTE RITTMAN (SWRLAB) [address] [place] [address] GLOMERULAR FILTRATION RATE ML/MIN/1.73 SQ M.PREDICTED 84.7 mL/min/1.73m*2 Normal >60.0 [facility] Comment on above: Order Comment: These orders are set for an approximate date - they can be drawn up to 3 months prior to the Expected Date on this Req. Please send results to: Bryan Barboza [facility] [address] 105 [facility] [address] - [phone] And if not done at a [place] [facility], please send to: [address], [address] Patient Name: Sloane Rinaldi - 1950 Order Created by : Sherice Caruso Result Comment: Calc ulation based on the Chronic Kidney Disease Epidemiology Collaboration (CKD-EPI) equation refit without adjustment for race Performed By: #### L AB17, [id number], LAB68, LAB69, LAB67, LAB18 #### Coo: GINO FLANAGAN ([id number]) [facility] LYNNETTE OTTOTMAN (SWRLAB) [address] [place] [address] Glucose [Mass/Vol] 87 mg/dL Normal 82-115 [facility] Comment on above: Order Comment: These orders are set for an approximate date - they can be drawn up to 3 months prior to the Expected Date on this Req. Please send results to: Bryan [place] [facility] [place] 105 [facility] [address] - [phone] And if not done at a [place] [facility], please send to: [address] [address] Patient Name: Sloane Rinaldi - 1950 Order Created by : Sherice Caruso Performed By: #### L AB17, SRH112, LAB68, LAB69, LAB67, LAB18 #### Coo: GINO FLANAGAN ([id number]) [facility]LEY[facility] (SWRLAB) [address] [place] [address] Potassium [Moles/Vol] 4.5 mmol/L Normal 3.5-5.1 [facility] Comment on above: Order Comment: These orders are set for an approximate date - they can be drawn up to 3 months prior to the Expected Date on this Req. Please send results to: Bryan Barboza - [address] 105 [facility] [address] - [phone] And if not done at a [place] [facility], please send to: [address], [address] Patient Name: Sloane Rinaldi - 1950 Order Created by : Sherice Caruso Result Comment: Plas ma potassium values may be up to 0.5 mmol/L lower than serum values. Performed By: #### L AB17, SLA783, LAB68, LAB69, LAB67, LAB18 #### Coo: GINO FLANAGAN ([id number]) [facility] ([facility] [address] [place] [address] Protein [Mass/Vol] 7.2 g/dL Normal 6.4-8.3 [facility] Comment on above: Order Comment: These orders are set for an approximate date - they can be drawn up to 3 months prior to the Expected Date on this Req. Please send results to: Bryan Barboza - [address] [facility] [place] 105 [facility] [address] - [phone] And if not done at a [place] [facility], please send to: [address] [address] Patient Name: Sloane Rinaldi - 1950 Order Created by : Sherice Caruso Performed By: #### L AB17, PNJ452, LAB68, LAB69, LAB67, LAB18 #### Coo: GINO FLANAGAN ([id number]) [facility] ([facility]) [address] [place] [address] Sodium [Moles/Vol] 141 mmol/L Normal 136-145 [facility] Comment on above: Order Comment: These orders are set for an approximate date - they can be drawn up to 3 months prior to the Expected Date on this Req. Please send results to: Bryan Barboza - [address] 105 [facility] [address] - [phone] And if not done at a [place] [facility], please send to: [address], [address] Patient Name: Sloane Ruelas 1950 Order Created by : Sherice Caruso Performed By: #### L AB17, QBK494, LAB68, LAB69, LAB67, LAB18 #### Coo: GINO FLANAGAN ([id number]) [facility] (SW[facility]) [address] [place] [address] Urea nitrogen [Mass/Vol] 18 mg/dL Normal 9-23 [facility] Comment on above: Order Comment: These orders are set for an approximate date - they can be drawn up to 3 months prior to the Expected Date on this Req. Please send results to: Byran Collado [facility] [place] 105 [facility] [address] - [phone] And if not done at a [place] [facility], please send to: [address], [address] Patient Name: Sloane Ruelas 1950 Order Created by : Sherice Caruso Performed By: #### L AB17, BDX107, LAB68, LAB69, LAB67, LAB18 #### Coo: GINO FLANAGAN ([id number]) [facility] (SW[facility]) [address] [place] [address] FERRITINon 11-06-2024 Ferritin [Mass/Vol] 396 ng/mL High 5-204 [facility] Comment on above: Result Comment: JULIANE Manzanares COMMENTS: These orders are set for an approximate date - they can be drawn up to 3 months prior to the Expected Date on this Req. Please send results to: Bryan [address] 105 [facility] [address] - [phone] And if not done at a [place] [facility], please send to: [address], [address] Patient Name: Sloane Ruelas 1950 Order Created by : Juan Cody MD Ferritin levels below 10 ng/mL have been reported as indicative of iron deficiency anemia. Performed By: #### L AB17, ZDR048, LAB68, LAB69, LAB67, LAB18 #### Coo: GINO FLANAGAN ([id number]) [facility] (SWRLAB) [address] [place] [address] FOLATEon 11-06-2024 FOLATE RESULT 15.3 ng/mL Normal 7.0-31.4 [facility] Comment on above: Order Comment: These orders are set for an approximate date - they can be drawn up to 3 months prior to the Expected Date on this Req. Please send results to: Bryan Lizwn [facility] [place] 105 [facility] [address] - [phone] And if not done at a [place] [facility], please send to: [address] [address] Patient Name: Sloane Rinaldi - 1950 Order Created by : Sherice Caruso Performed By: #### L AB17, DNX156, LAB68, LAB69, LAB67, LAB18 #### Coo: GINO FLANAGAN ([id number]) [facility] (SWRL[facility]) [address] [place] [address] IRONon 11-06-2024 IRON, TOTAL 140 ug/dL Normal 50-170 [facility] Comment on above: Order Comment: These orders are set for an approximate date - they can be drawn up to 3 months prior to the Expected Date on this Req. Please send results to: Bryan Marie Eden [facility] [place] 105 [facility] [address] - [phone] And if not done at a [place] [facility], please send to: [address], [address] Patient Name: Sloane Rinaldi 1950 Order Created by : Sherice Caruso Performed By: #### L AB17, [id number], LAB68, LAB69, LAB67, LAB18 #### Coo: GINO FLANAGAN ([id number]) [facility] (SWRLAB) [address] [place] [address] LIPID PANELon 11-06-2024 Cholesterol [Mass/Vol] 188 mg/dL Normal <200 [facility] Comment on above: Order Comment: These orders are set for an approximate date - they can be drawn up to 3 months prior to the Expected Date on this Req. Please send results to: Bryan Barboza - [address] 105 [facility] [address] - [phone] And if not done at a [place] [facility], please send to: [facility] - [address] [place] [address], [address] Patient Name: Sloane Rinaldi 1950 Order Created by : Sherice Caruso Performed By: #### L AB17, RNP999, LAB68, LAB69, LAB67, LAB18 #### Coo: GINO FLANAGAN ([id number]) [facility] (RLAB) [address] [place] [address] Cholesterol in HDL [Mass/Vol] 55 mg/dL Low >=60 [facility] Comment on above: Order Comment: These orders are set for an approximate date - they can be drawn up to 3 months prior to the Expected Date on this Req. Please send results to: Bryan Barboza - [address] 105 [facility] [address] - [phone] And if not done at a [place] [facility], please send to: [facility] - [address] [place] [address], [address], [address] Patient Name: Sloane Rinaldi 1950 Order Created by : Sherice Caruso Performed By: #### L AB17, HMY854, LAB68, LAB69, LAB67, LAB18 #### Coo: GINO FLANAGAN ([id number]) [facility] (SW[facility]) [address] [place] [address] Cholesterol.total/Yaima sterol in HDL [Mass ratio] 3 {ratio} Normal [facility] Comment on above: Order Comment: These orders are set for an approximate date - they can be drawn up to 3 months prior to the Expected Date on this Req. Please send results to: Bryan Barboza - [address] [facility] [address] 105 [facility] [address] - [phone] And if not done at a [facility] [facility], please send to: [facility] - [address] [place] [address], [address] [facility], [address] Patient Name: Sloane Rinaldi - 1950 Order Created by : Sherice Caruso Result Comment: Ref Range: < 3 Low Risk for CHD 3-6 Mod Risk for CHD > 6 High Risk for CHD Performed By: #### L AB17, [id number], LAB68, LAB69, LAB67, LAB18 #### Coo: GINO FLANAGAN ([id number]) [facility] [address] [place] [address] LOW DENSITY LIPOPROTEIN 111 mg/dL High 0-<100 [facility] Comment on above: Order Comment: These orders are set for an approximate date - they can be drawn up to 3 months prior to the Expected Date on this Req. Please send results to: Bryan Barboza [facility] 105 [facility] [address] - [phone] And if not done at a [place] [facility], please send to: [facility] - [address] [place] [address], [address] - [facility] [place], [address] Patient Name: Sloane Rinaldi - 1950 Order Created by : Sherice Caruso Performed By: #### L AB17, BTN646, LAB68, LAB69, LAB67, LAB18 #### Coo: GINO FLANAGAN ([id number]) [facility] (SWRLAB) [address] [place] [address] NON-HDL CHOLESTEROL, CALCULATED 133 High <130 [facility] Comment on above: Order Comment: These orders are set for an approximate date - they can be drawn up to 3 months prior to the Expected Date on this Req. Please send results to: Bryan Barboza [facility] 105 [facility] [address] - [phone] And if not done at a [place] [facility], please send to: [facility] - [address] [place] [address] Patient Name: Sloane Rinaldi - 1950 Order Created by : Sherice Caruso Performed By: #### L AB17, NZH064, LAB68, LAB69, LAB67, LAB18 #### Coo: GINO FLANAGAN ([id number]) [facility] [address] [place] [address] Triglyceride [Mass/Vol] 112 mg/dL Normal <150 [facility] Comment on above: Order Comment: These orders are set for an approximate date - they can be drawn up to 3 months prior to the Expected Date on this Req. Please send results to: Bryan Barboza [facility] 105 [facility] [id number] - [phone] And if not done at a [place] [facility], please send to: [facility] - [address] [place] [address], [address] Patient Name: Sloane Rinaldi - 1950 Order Created by : Sherice Caruso Performed By: #### L AB17, SDJ543, LAB68, LAB69, LAB67, LAB18 #### Coo: GINO FLANAGAN ([phone]) [facility] ([facility]) [address] [place] [address] VERY LOW DENSITY LIPOPROTEIN, CALCULATED 22 mg/dL Normal <=30 [facility] Comment on above: Order Comment: These orders are set for an approximate date - they can be drawn up to 3 months prior to the Expected Date on this Req. Please send results to: Bryan Strange [address] 105 [facility] [phone] - [phone] And if not done at a [place] [facility], please send to: [facility] - [address] [place] [address], [address] [facility], [address] Patient Name: Sloane Ruelas 1950 Order Created by : Sherice Caruso Performed By: #### L AB17, KXZ125, LAB68, LAB69, LAB67, LAB18 #### Coo: GINO FLANAGAN ([id number]) [facility] [address] [place] [address] MAGNESIUMon 11-06-2024 Magnesium [Mass/Vol] 2.0 mg/dL Normal 1.6-2.6 [facility] Comment on above: Result Comment: JULIANE Manzanares COMMENTS: These orders are set for an approximate date - they can be drawn up to 3 months prior to the Expected Date on this Req. Please send results to: Bryan Bernabe[address] 105 [facility] [phone] - [phone] And if not done at a [place] [facility], please send to: [facility] - [address] [place] [address], [address] [facility], [address] Patient Name: Sloane Ruelas 1950 Order Created by : Juan Cody MD Higher values can be expected in females during menses. Performed By: #### L AB17, SJN098, LAB68, LAB69, LAB67, LAB18 #### Coo: GINO FLANAGAN ([id number]) [facility] ([facility]) [address] VITAMIN B1, WHOLE BLOOD (BKR [facility])on 11-06-2024 [facility] VITAMIN B1 (THIAMINE), BLOOD, LC/MS/MS 120 nmol/L Normal 78-185 [facility] Comment on above: Result Comment: Vitamin supplementation within 24 hours prior to blood draw may affect the accuracy of the results. This test was developed and its analytical performance characteristics have been determined by [facility] [place], [place]. It has not been cleared or approved by the U.S. Food and Drug Administration. This assay has been validated pursuant to the CLIA regulations and is used for clinical purposes. Test Performed by [facility], [facility], [address] [place], [place] Arjun Ambrosio M.D., Ph.D., Director of Laboratories , CLIA [id number] Performed By: #### L AB17, XNW525, LAB68, LAB69, LAB67, LAB18 #### Coo: GINO FLANAGAN ([id number]) [facility] (SWRL[facility]) [address] VITAMIN B12on 11-06-2024 Cobalamin (Vitamin B12) [Mass/Vol] 862 pg/mL High 213-816 [facility] Comment on above: Order Comment: These orders are set for an approximate date - they can be drawn up to 3 months prior to the Expected Date on this Req. Please send results to: Bryan Barboza - Shannan Collado [facility] [place] 105 [facility] [address] - [phone] And if not done at a [place] [facility], please send to: [facility] - [address] [place] [address], [address] [facility], [address] Patient Name: Sloane Rinaldi - 1950 Order Created by : Sherice Caruso Performed By: #### L AB17, BGE929, LAB68, LAB69, LAB67, LAB18 #### Coo: GINO FLANAGAN ([id number]) [facility] ([facility]) [address] VITAMIN D DEFICIENCY SCREENI NG (VIT D 25)on 11-06-2024 VIT D 25-OH, TOTAL 52 ng/mL High See comment [facility] Comment on above: Result Comment: JULIANE Manzanares COMMENTS: These orders are set for an approximate date - they can be drawn up to 3 months prior to the Expected Date on this Req. Please send results to: Bryan Collado Darshan 105 [facility] [address] - [phone] And if not done at a [place] [facility], please send to: [address], [address] Patient Name: Sloane Rinaldi 1950 Order Created by : Juan Cody MD Target concentration: 30 - 40 ng/mL; toxicity seen at concentrations >100 ng/mL Less than 20 ng/mL: Indicative of Vit D deficiency Test performed by [employer], measuring Total Vitamin D, not individual fractions. Performed By: #### L AB17, STW371, LAB68, LAB69, LAB67, LAB18 #### Coo: GINO FLANAGAN ([id number]) [facility] ([facility]) [address] [place] [address] ZINC (BKR QUEST)on QUEST ZINC 78 mcg/dL Normal 60-130 [facility] Comment on above: Order Comment: These orders are set for an approximate date - they can be drawn up to 3 months prior to the Expected Date on this Req. Please send results to: Bryan Collado Darshan [address] [facility] [address] - [phone] And if not done at a [place] [facility], please send to: [address], [address] Patient Name: Sloane Rinaldi - 1950 Order Created by : Sherice Caruso Result Comment: This test was developed and its analytical performance characteristics have been determined by [facility] [place], [place]. It has not been cleared or approved by the U.S. Food and Drug Administration. This assay has been validated pursuant to the CLIA regulations and is used for clinical purposes. Test Performed by [facility], [facility], [address] [place], [place] Arjun Ambrosio M.D., Ph.D., Director of Laboratories , CLIA [id number] Performed By: #### L AB17, HQN121, LAB68, LAB69, LAB67, LAB18 #### Coo: GINO FLANAGAN ([id number]) [facility] ([facility]) [address] [place] [address] 12 Lead EKGon 08-28-2024 12 Lead EKG [facility] Cardi[facility] Services [address] [place] [address] 12 Lead EKG 08/27/24 2356 MR#: [id number] Acct: [id number] Name: SLOANE RINALDI Rep #: [id number] : 1950 73 From: Clif Johnson MD Attending Dr: Status: DEP ER Ordering Dr: Nicolas Encarnacion DO Date: 5 Location: ED Sex: F C Admitted: Test Reason : DYSRHYTHMIA Blood Pressure : */* mmHG Vent. Rate : 85 BPM Atrial Rate : 85 BPM P-R Int : 140 ms QRS Dur : 136 ms QT Int : 406 ms P-R-T Axes : 20 -19 -12 degrees QTcB Int : 483 ms Normal sinus rhythm Right bundle branch block Abnormal ECG Confirmed by CLIF JOHNSON MD ([id number]), news copy editor ESTEFANI ALMANZAR ([id number]) on 08/31/2024 7:05:32 AM Referred By: CHIO Confirmed By: CLIF JOHNSON MD 08/31/24 0705 Date Clif Johnson MD CC: Dr. Ad Encarnacion DO; Dr. Bryan Barboza MD Signed Normal [facility] Absolute lymphocyte countOrd ered By: Ad Encarnacion on 08-28-2024 Lymphocytes Auto (Unsp spec) [#/Vol] 2.23 10*3/uL 0.83-4.51 [facility] Absolute neutrophil countOrd ered By: Adadelia Encarnacion on 08-28-2024 Neutrophils (Bld) [#/Vol] 4.4 10*3/uL 2.0-7.7 [facility] Anion gap in Serum or Plasma Ordered By: Ad Encarnacion on 08-28-2024 Anion gap [Moles/Vol] 11 mmol/L 5-15 [facility] Automated lymphocyte count a s percentage of total leukocytesOrdered By: Ad Encarnacion on 08-28-2024 Lymphocytes/100 WBC Auto (Unsp spec) 26.8 % 19-41 [facility] BUN/creatinine ratioOrdered By: Adadelia Encarnacion on 08-28-2024 Urea nitrogen/Creatinine [Mass ratio] 22.8 mg/mg High 10-20 [facility] Basic Metabolic Profile (BMP )on 08-28-2024 BUN/CRE 22.8 RATIO High - [facility] Comment on above: Performed By: #### L 500.4100, L500.2500, L100.0100 #### [facility] [address] [place], [address] Calcium [Mass/Vol] 9.8 mg/dL Normal 7.6-11.0 [facility] Comment on above: Performed By: #### L 500.4100, L500.2500, L100.0100 #### [facility] [address] [place], [address] Chloride [Moles/Vol] 103 mmol/L Normal 98-108 [facility] Comment on above: Performed By: #### L 500.4100, L500.2500, L100.0100 #### [facility] [address] [place], [address] CO2 [Moles/Vol] 25.7 mmol/L Normal 21.0-32.0 [facility] Comment on above: Performed By: #### L 500.4100, L500.2500, L100.0100 #### [facility] [address] [place], [address] Creatinine [Mass/Vol] 0.80 mg/dL Normal 0.70-1.20 [facility] Comment on above: Performed By: #### L 500.4100, L500.2500, L100.0100 #### [facility] [address] [place], [address] ECRCL 67.09 ml/min Normal 50-250 [facility] Comment on above: Performed By: #### L 500.4100, L500.2500, L100.0100 #### [facility] [address] [place], [address] GAP 11 Normal 5-15 [facility] Comment on above: Performed By: #### L 500.4100, L500.2500, L100.0100 #### [facility] [address] [place], [address] GFR/1.73 sq M.predicted among non-blacks MDRD (S/P/Bld) [Vol rate/Area] 78 mL/min/{1.73_m2} Normal >60 [facility] Comment on above: Result Comment: mL/m in/1.73m2 CKD-EPI Creatinine Equation (2020) Performed By: #### L 500.4100, L500.2500, L100.0100 #### [facility] [address] [place], [address] Glucose [Mass/Vol] 101 mg/dL High 70-99 [facility] Comment on above: Performed By: #### L 500.4100, L500.2500, L100.0100 #### [facility] [address] [place], [address] Potassium [Moles/Vol] 3.9 mmol/L Normal 3.3-5.1 [facility] Comment on above: Performed By: #### L 500.4100, L500.2500, L100.0100 #### [facility] [address] [place], [address] Sodium [Moles/Vol] 140 mmol/L Normal 133-145 [facility] Comment on above: Performed By: #### L 500.4100, L500.2500, L100.0100 #### [facility] [address] [place], [address] Urea nitrogen [Mass/Vol] 18 mg/dL Normal 4-19 [facility] Comment on above: Performed By: #### L 500.4100, L500.2500, L100.0100 #### [facility] [address] [place], [address] Basophil percentageOrdered B y: Ad Encarnacion on 08-28-2024 Basophils/100 WBC (Bld) 0.8 % 0-1 [facility] CBC W/Diff, Automatedon 08-06 Absolute Lymph 2.23 X10 3/uL Normal 0.83-4.51 [facility] Comment on above: Performed By: #### L 500.4100, L500.2500, L100.0100 #### [facility] [address] [place], [address] Absolute Neut 4.4 X10 3/uL Normal 2.0-7.7 [facility] Comment on above: Performed By: #### L 500.4100, L500.2500, L100.0100 #### [facility] [address] [place], [address] Basophils/100 WBC (Bld) 0.8 % Normal 0-1 [facility] Comment on above: Performed By: #### L 500.4100, L500.2500, L100.0100 #### [facility] [address] [place], [address] Eosinophils/100 WBC (Bld) 8.4 % High 0-5 [facility] Comment on above: Performed By: #### L 500.4100, L500.2500, L100.0100 #### [facility] [address] [place], [address] Erythrocyte distribution width (RBC) [Ratio] 12.6 % Normal 11.6-14.6 [facility] Comment on above: Performed By: #### L 500.4100, L500.2500, L100.0100 #### [facility] [address] [place], [address] Hematocrit (Bld) [Volume fraction] 41.0 % Normal 37-47 [facility] Comment on above: Performed By: #### L 500.4100, L500.2500, L100.0100 #### [facility] [address] [place], [address] Hemoglobin (Bld) [Mass/Vol] 13.6 g/dL Normal 12.0-15.0 [facility] Comment on above: Performed By: #### L 500.4100, L500.2500, L100.0100 #### [facility] [address] [place], [address] IG% 0.500 Normal 0.0-0.9 [facility] Comment on above: Result Comment: IG% - Immature Granulocytes (promyelocytes, myelocytes and metamyelocytes) > 1% indicates that a LEFT SHIFT is Present. Performed By: #### L 500.4100, L500.2500, L100.0100 #### [facility] [address] [place], [address] Lymphocytes/100 WBC (Bld) 26.8 % Normal 19-41 [facility] Comment on above: Performed By: #### L 500.4100, L500.2500, L100.0100 #### [facility] [address] [place], [address] MCH (RBC) [Entitic mass] 30.6 pg Normal 27.0-32.0 [facility] Comment on above: Performed By: #### L 500.4100, L500.2500, L100.0100 #### [facility] [address] [place], [address] MCHC (RBC) [Mass/Vol] 33.2 g/dL Normal 32-36 [facility] Comment on above: Performed By: #### L 500.4100, L500.2500, L100.0100 #### [facility] [address] [place], [address] MCV (RBC) [Entitic vol] 92.1 fL Normal 81-99 [facility] Comment on above: Performed By: #### L 500.4100, L500.2500, L100.0100 #### [facility] [address] [place], [address] Monocytes/100 WBC (Bld) 10.2 % High 0-10 [facility] Comment on above: Performed By: #### L 500.4100, L500.2500, L100.0100 #### [facility] [address] [place], [address] Neutrophils/100 WBC (Bld) 53.3 % Normal 47-70 [facility] Comment on above: Performed By: #### L 500.4100, L500.2500, L100.0100 #### [facility] [address] [place], [address] Nucleated RBC (Bld) [#/Vol] 0 10*3/uL Normal 0-5 [facility] Comment on above: Performed By: #### L 500.4100, L500.2500, L100.0100 #### [facility] [address] [place], [address] Platelet mean volume (Bld) [Entitic vol] 9.4 fL Normal 6.2-12.0 [facility] Comment on above: Performed By: #### L 500.4100, L500.2500, L100.0100 #### [facility] [address] [place], [address] Platelets (Bld) [#/Vol] 252 10*3/uL Normal 150-450 [facility] Comment on above: Performed By: #### L 500.4100, L500.2500, L100.0100 #### [facility] [address] [place], [address] RBC (Bld) [#/Vol] 4.45 10*6/uL Normal 4.2-5.4 [facility] Comment on above: Performed By: #### L 500.4100, L500.2500, L100.0100 #### [facility] [address] [place], [address] RDW SD 42.8 fl Normal 35.1-43.9 [facility] Comment on above: Performed By: #### L 500.4100, L500.2500, L100.0100 #### [facility] [address] [place], [address] WBC (Bld) [#/Vol] 8.3 10*3/uL Normal 4.4-11.0 [facility] Comment on above: Performed By: #### L 500.4100, L500.2500, L100.0100 #### [facility] [address] [place], [address] Carbon dioxide, total [Moles /volume] in Central venous bloodOrdered By: Ad Encarnacion on 08-28-2024 CO2 [Moles/Vol] 25.7 mmol/L 21.0-32.0 [facility] Chest PA and Lateralon 08-28 Chest PA and Lateral [facility] Imaging Services [address] [place] [address] Chest PA and Lateral MR#: [id number] Acct: [id number] Name: LONAVALENTINASLOANE Villalpando Rep #: [id number] : 1950 F 73 From: Frandy Lang MD PCP: Dr. Bryan Barboza MD Status: PRE ER Study: Chest PA and Lateral Date of Exam: 08/28/24 Exam# [id number] Ordering Dr: Nicolas Encarnacion DO PROCEDURE: CHEST PA AND LATERAL 08/28/2024 REASON FOR EXAM: PALPITATIONS TECHNIQUE: Frontal and lateral views of the chest. COMPARISON: 08/04/2024 FINDINGS: The lungs appear clear. Pulmonary vascularity appears within limits. No pleural effusion. The cardiac and mediastinal contours appear within limits. S shaped thoracolumbar scoliosis with lumbar spondylosis/discoge smooth change. Surgical clips right lateral chest again seen. RAD/Chest PA and Lateral IMPRESSION: No evidence of acute disease. Reading Location: [facility] CC: Dr. Ad Encarnacion DO; Dr. Bryan Barboza MD [place]ward: Signed Normal [facility] Chloride assayOrdered By: Star Encarnacion on 08-28-2024 Chloride [Moles/Vol] 103 mmol/L 98-108 [facility] Emergency Department Summary on 08-28-2024 Emergency Department Summary [facility] Medical Records Department [address] [place] [address] Emergency Department Summary 08/28/24 MR#: [id number] Acct: [id number] Name: SLOANE RINALDI Rep #: [id number] : 1950 73 From: Ad MatosBouchra DOWELL PCP: Dr. Bryan Barboza MD Status:REG ER Location: ED HPI History of Present Illness Chief Complaint: Palpitations Narrative Narrative: Chief complaint and HPI: 73-year-old female with past medical history of HTN, HLD, hypothyroidism presents for evaluation of palpitations. Patient states she was lying in bed this evening about to fall asleep when she felt her heart flutter for a couple seconds. She states the palpitations quickly resolved. She states she became nervous in which she called EMS. She denies any fever, chills, URI symptoms, chest pain, shortness of breath, nausea, vomiting. Eating and drinking well. Triage note states that the patient has had heart palpitations in the past and was just recently seen here a few days ago. On chart review, patient is not been seen here since July and at that time it was for an abscess. I I brought this to the patient's attention and she states she has no history of palpitations and was not recently seen anywhere for palpitations. Review of systems: See HPI Medications: As listed on the chart Allergies: As listed on the chart PFSH: Per chart Vital signs: As listed on the chart. Reviewed. Physical exam: Gen: A O x3, NAD Head: Normocephalic, atraumatic Eyes: No sclera icterus, conjunctiva clear ENT: Moist mucous membranes Neck: Trachea midline, No JVD CV: RRR, no murmurs, no peripheral edema Resp: Lungs CTA BL, no w/r/c GI: Abd soft, non-distended, non-tender, no r/r/g Musc: Full ROM, no deformity Skin: Warm, dry Neuro: Alert, oriented, grossly intact, sensation intact Psych: Cooperative, appropriate mood and affect PFS PFS Medical History Melanoma Lower extremity pain Home Medications ???Medication ???Instructions ???Recorded ???Last Taken ???Type aspirin 81 mg chewable tablet 81 mg PO BREAKFAST heart health #0 03/16/24 08/04/24 Rx tabs losartan 50 mg-hydrochlorothiaz dallin 0.5 tab PO DAILY blood pressure 04/30/24 08/04/24 History 12.5 mg tablet ipratropium bromide 42 mcg (0.06 2 spray intranasal DAILY PRN 08/04 Unknown History %) nasal spray allergy symptoms levothyroxine 100 mcg tablet 100 mcg PO DAILY thyroid 08/04/24 08/04/24 History atorvastatin 40 mg tablet 40 mg PO QHS 30 days #30 tabs 05/0 05/01 Unknown Rx Allergy/AdvReac Type Severity Reaction Status Date / Time Sulfa (Sulfonamide Allergy unknown Verified 08/27/24 23:54 Antibiotics) Family History Mother , 81 No problems noted. 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 and animals: Yes pets and animals: dog(s) Smoking Status: Never smoker alcohol intake: never caffeine: Yes Type: coffee Number of servings: 2 do you feel safe at home: Yes EXAM Physical Exam Const Vital Signs: 08/27/24 23:51 08/27/24 23:56 Temperature 97.9 F Temperature Source Oral Pulse Rate 87 Respiratory Rate 16 Respiratory Effort Normal Respiratory Pattern Normal Blood Pressure 152/92 H Blood Pressure Mean 112 Pulse Ox 94 Oxygen Delivery Method Room Air MDM MDM MDM Narrative Medical decision making narrative: 73-year-old female with past medical history of HTN, HLD, hypothyroidism presents for evaluation of palpitations. Patient had palpitations prior to arrival which quickly resolved. Currently asymptomatic. Vitals are stable other than mild hypertension. Denies any associated complaints with the palpitations. Differential diagnosis includes but is not limited to arrhythmia, anemia, electrolyte abnormality, thyroid disease. Suspect less likely ACS. Laboratory workup ordered including chest x-ray. EKG and chest x-ray reviewed see below. CBC without leukocytosis or anemia. BMP unremarkable. Magnesium unremarkable. Troponin unremarkable. Patient not having chest pain therefore I do not think delta troponin is needed. TSH unremarkable. At this point in time no clear etiology for patient's palpitations. She has remained asymptomatic here without any complaints. Patient stable to discharge home. Follow-up with PCP. Return precautions explained. EKG: Interpreted by me/EM physician: (more content not included)... Normal [facility] Eosinophil percentageOrdered By: Ad Encarnacion on 08-28-2024 Eosinophils/100 WBC (Bld) 8.4 % High 0-5 [facility] Erythrocyte distribution wid th ratioOrdered By: Adadelia Encarnacion on 08-28-2024 Erythrocyte distribution width (RBC) [Ratio] 12.6 % 11.6-14.6 [facility] Erythrocyte distribution wid th standard deviationOrdered By: [facility] MountainJessenia Shook on 08-28-2024 Erythrocyte distribution width (RBC) [Ratio] 42.8 fl 35.1-43.9 [facility] Glomerular filtration rate ( GFR) estimation/1.73 sq m using serum, plasma, or whole bOrdered By: Adadelia Encarnacion on 08-28-2024 GFR/1.73 sq M.predicted among non-blacks MDRD (S/P/Bld) [Vol rate/Area] 78 mL/min/{1.73_m2} >60 [facility] Comment on above: mL/min/1.73m2 CKD-EP I Creatinine Equation (2020) Hematocrit Auto (Bld) [Volum e fraction]Ordered By: Ad Encarnacion on 08-28-2024 Hematocrit (Bld) [Volume fraction] 41.0 % 37-47 [facility] Hemoglobin measurementOrdere d By: Ad Encarnacion on 08-28-2024 Hemoglobin (Bld) [Mass/Vol] 13.6 g/dL 12.0-15.0 [facility] Immature granulocytes/100 WB C Auto (Bld)Ordered By: Ad Encarnacion on 08-28-2024 Immature granulocytes/100 WBC (Bld) 0.500 % 0.0-0.9 [facility] Comment on above: IG% - Immature Granu locytes (promyelocytes, myelocytes and metamyelocytes) > 1% indicates that a LEFT SHIFT is Present. L501.4021on 08-28-2024 Trop T High Sen < 6 Normal <=14 [facility] Comment on above: Performed By: #### L 500.4100, L500.2500, L100.0100 #### [facility] [address] [facility] [place], [place], [id number] MCV (mean corpuscular volume ) determinationOrdered By: Ad Mcconnellt on 08-28-2024 MCV (RBC) [Entitic vol] 92.1 fL 81-99 [facility] Magnesiumon 08-28-2024 Magnesium [Mass/Vol] 2.1 mg/dL Normal 1.5-2.2 [facility] Comment on above: Performed By: #### L 499.0042 #### [facility] [address] [place], [place], [id number] Magnesium measurement (mass/ volume)Ordered By: Ad Encarnacion on 08-28-2024 Magnesium (Unsp spec) [Mass/Vol] 2.1 mg/dL 1.5-2.2 [facility] Mean corpuscular hemoglobin (MCH) determinationOrdered By: Ad Encarnacion on 08-28-2024 MCH (RBC) [Entitic mass] 30.6 pg 27.0-32.0 [facility] Mean corpuscular hemoglobin concentration (MCHC) determinationOrdered By: Ad Encarnacion on 08-28-2024 MCHC (RBC) [Mass/Vol] 33.2 g/dL 32-36 [facility] Mean platelet volume determi nationOrdered By: Ad Encarnacion on 08-28-2024 Platelet mean volume (Bld) [Entitic vol] 9.4 fL 6.2-12.0 [facility] Monocyte percentageOrdered B y: Ad Encarnacion on 08-28-2024 Monocytes/100 WBC (Bld) 10.2 % High 0-10 [facility] Neutrophil percentageOrdered By: Ad Encarnacion on 08-28-2024 Neutrophils/100 WBC (Bld) 53.3 % 47-70 [facility] Nucleated red blood cell per centageOrdered By: Ad Encarnacion on 08-28-2024 Nucleated RBC/100 WBC (Bld) [Ratio] 0 % 0-5 [facility] Platelet countOrdered By: Star Encarnacion on 08-28-2024 Platelets (Bld) [#/Vol] 252 10*3/uL 150-450 [facility] Potassium measurement (mass/ volume)Ordered By: Ad Encarnacion on 08-28-2024 Potassium (Unsp spec) [Mass/Vol] 3.9 mmol/L 3.3-5.1 [facility] RBC Auto (Bld) [#/Vol]Ordere d By: Ad Encarnacion on 08-28-2024 RBC (Bld) [#/Vol] 4.45 10*6/uL 4.2-5.4 [facility] Serum creatinine measurement (mass/volume)Ordered By: Ad Encarnacion on 08-28-2024 Creatinine [Mass/Vol] 0.80 mg/dL 0.70-1.20 [facility] Serum glucose measurement (m ass/volume)Ordered By: Ad Encarnacion on 08-28-2024 Glucose [Mass/Vol] 101 mg/dL High 70-99 [facility] Serum or plasma calcium miguel urement (mass/volume)Ordered By: Ad Shook on 08-28-2024 Calcium [Mass/Vol] 9.8 mg/dL 7.6-11.0 [facility] Serum or plasma urea nitroge n measurement (mass/volume)Ordered By: Ad Encarnacion on 08-28-2024 Urea nitrogen [Mass/Vol] 18 mg/dL 4-19 [facility] Sodium levelOrdered By: Nicolas Encarnacion on 08-28-2024 Sodium [Moles/Vol] 140 mmol/L 133-145 [facility] TSH DL <= 0.005 mIU/L QnOrde red By: Ad Encarnacion on 08-28-2024 TSH Qn 2.800 uIU/mL 0.300-4.200 [facility] Thyroid Stim Hormone (TSH)on 08-28-2024 TSH 2.800 uIU/mL Normal 0.300-4.200 [facility] Comment on above: Performed By: #### L 499.0042 #### [facility] [address] [place], [address] Troponin T.cardiac [Mass/vol ume] in Serum or Plasma by High sensitivity methodOrdered By: Ad Encarnacion on 08-28-2024 Troponin T.cardiac High sensitivity method [Mass/Vol] < 6 ng/L <14 [facility] White blood cell (WBC) count Ordered By: Ad Encarnacion on 08-28-2024 WBC (Bld) [#/Vol] 8.3 10*3/uL 4.4-11.0 [facility] Absolute lymphocyte countOrd ered By: Dany Hastings on 08-05-2024 Lymphocytes Auto (Unsp spec) [#/Vol] 0.93 10*3/uL 0.83-4.51 [facility] Absolute neutrophil countOrd ered By: Dany Hastings on 08-05-2024 Neutrophils (Bld) [#/Vol] 3.3 10*3/uL 2.0-7.7 [facility] Anion gap in Serum or Plasma Ordered By: Dany Hastings on 08-05-2024 Anion gap [Moles/Vol] 10 mmol/L 5-15 [facility] Automated lymphocyte count a s percentage of total leukocytesOrdered By: Dany Hastings on 08-05-2024 Lymphocytes/100 WBC Auto (Unsp spec) 18.8 % Low 19-41 [facility] BUN/creatinine ratioOrdered By: Dany Hastings on 08-05-2024 Urea nitrogen/Creatinine [Mass ratio] 21.9 mg/mg High 10-20 [facility] Basic Metabolic Profile (BMP )on 08-05-2024 BUN/CRE 21.9 RATIO High 01-24 [facility] Comment on above: Order Comment: Comme nts: NPO at [place] prior to lipid panel Performed By: #### L 500.4100, L500.2500, L100.0100 #### [facility] [address] [place], [address] Calcium [Mass/Vol] 9.1 mg/dL Normal 7.6-11.0 [facility] Comment on above: Order Comment: Comme nts: NPO at [place] prior to lipid panel Performed By: #### L 500.4100, L500.2500, L100.0100 #### [facility] [address] [place], [address] Chloride [Moles/Vol] 106 mmol/L Normal 98-108 [facility] Comment on above: Order Comment: Comme nts: NPO at [place] prior to lipid panel Performed By: #### L 500.4100, L500.2500, L100.0100 #### [facility] [address] [place], [address] CO2 [Moles/Vol] 22.4 mmol/L Normal 21.0-32.0 [facility] Comment on above: Order Comment: Comme nts: NPO at [place] prior to lipid panel Performed By: #### L 500.4100, L500.2500, L100.0100 #### [facility] [address] [place], [address] Creatinine [Mass/Vol] 0.69 mg/dL Low 0.70-1.20 [facility] Comment on above: Order Comment: Comme nts: NPO at [place] prior to lipid panel Performed By: #### L 500.4100, L500.2500, L100.0100 #### [facility] [address] [place], [address] ECRCL 66.25 ml/min Normal 50-250 [facility] Comment on above: Order Comment: Comme nts: NPO at [place] prior to lipid panel Performed By: #### L 500.4100, L500.2500, L100.0100 #### [facility] [address] [place], [address] GAP 10 Normal 5-15 [facility] Comment on above: Order Comment: Comme nts: NPO at [place] prior to lipid panel Performed By: #### L 500.4100, L500.2500, L100.0100 #### [facility] [address] [place], [address] GFR/1.73 sq M.predicted among non-blacks MDRD (S/P/Bld) [Vol rate/Area] 92 mL/min/{1.73_m2} Normal >60 [facility] Comment on above: Order Comment: Comme nts: NPO at [place] prior to lipid panel Result Comment: mL/m in/1.73m2 CKD-EPI Creatinine Equation (2020) Performed By: #### L 500.4100, L500.2500, L100.0100 #### [facility] [address] [place], [address] Glucose [Mass/Vol] 90 mg/dL Normal 70-99 [facility] Comment on above: Order Comment: Comme nts: NPO at [place] prior to lipid panel Performed By: #### L 500.4100, L500.2500, L100.0100 #### [facility] [address] [place], [address] Potassium [Moles/Vol] 3.9 mmol/L Normal 3.3-5.1 [facility] Comment on above: Order Comment: Comme nts: NPO at [place] prior to lipid panel Result Comment: Hemo lysis present, Results??could be affected. ?? Performed By: #### L 500.4100, L500.2500, L100.0100 #### [facility] [address] [place], [address] Sodium [Moles/Vol] 138 mmol/L Normal 133-145 [facility] Comment on above: Order Comment: Comme nts: NPO at [place] prior to lipid panel Performed By: #### L 500.4100, L500.2500, L100.0100 #### [facility] [address] [place], [address] Urea nitrogen [Mass/Vol] 15 mg/dL Normal 4-19 [facility] Comment on above: Order Comment: Comme nts: NPO at [place] prior to lipid panel Performed By: #### L 500.4100, L500.2500, L100.0100 #### [facility] [address] [place], [address] Basophil percentageOrdered B y: Dany Hastings on 08-05-2024 Basophils/100 WBC (Bld) 0.6 % 0-1 [facility] Bedside Glucoseon 08-05-2024 FINGERSTICK GLU 113 mg/dL High 74-106 [facility] Comment on above: Result Comment: BERTIN GEMENT OF PATIENT CARE PER NURSING PROTOCOL Performed By: #### L 501.080 ####[facility] [address] [place], [address] Brain without Contraston Brain without Contrast [facility] Imaging Services [address] [place] [address] Brain without Contrast MR#: [id number] Acct: [id number] Name: SLOANE RINALDI Rep #: [id number] : 1950 F 73 From: Cisco Wong MD PCP: Dr. Bryan Barboza MD Status: ADM IN Study: Brain without Contrast Date of Exam: 08/05/24 Exam# [id number] Ordering Dr: Dany Hastings MD PROCEDURE: BRAIN WITHOUT CONTRAST (MRIBR), 08/05/2024 REASON FOR EXAM: CVA COMPARISON: 08/04/2024 TECHNIQUE: Multisequence multiplanar MRI brain was performed without intravenous contrast. Contrast: None. FINDINGS: Cerebrum: There are punctate foci of RIGHT frontoparietal faint cortical/subcortica l restricted diffusion in the, similar region to prior but favored new, compatible with punctate acute infarcts.. No appreciable associated hemorrhage or mass-effect. Minimal presumed chronic microvascular ischemic changes in the supratentorial white matter. Cerebellum: Unremarkable. Brainstem: Unremarkable. Ventricles/extra-ax ial spaces: Age appropriate appearance. Major flow voids: Better evaluated on recent CTA.. Paranasal sinuses: Unremarkable. Scalp/calvarium: Unremarkable. Orbits: Grossly unremarkable within limits of nondedicated technique. Other: None. MRI/Brain without Contrast IMPRESSION: 1. Suspect punctate acute infarcts in the cortical/subcortica l RIGHT frontoparietal region in a similar region to previous MRI 03/15/2024. No appreciable mass effect or intracranial hemorrhage. 2. Additional description as above. Findings were discussed by telephone with Danya SMART at 7:26 am MST on 08/05/2024 by Cisco Wong. Reading Location: [facility] CC: Dr. Bryan Barboza MD; Dr. Dany Hastings MD [place] Steward: Signed Normal [facility] CBC W/Diff, Automatedon 05-0 Absolute Lymph 0.93 X10 3/uL Normal 0.83-4.51 [facility] Comment on above: Performed By: #### L 500.4100, L500.2500, L100.0100 #### [facility] [address] [place], [address] Absolute Neut 3.3 X10 3/uL Normal 2.0-7.7 [facility] Comment on above: Performed By: #### L 500.4100, L500.2500, L100.0100 #### [facility] [address] [place], [address] Basophils/100 WBC (Bld) 0.6 % Normal 0-1 [facility] Comment on above: Performed By: #### L 500.4100, L500.2500, L100.0100 #### [facility] [address] [place], [address] Eosinophils/100 WBC (Bld) 2.0 % Normal 0-5 [facility] Comment on above: Performed By: #### L 500.4100, L500.2500, L100.0100 #### [facility] [address] [place], [address] Erythrocyte distribution width (RBC) [Ratio] 12.6 % Normal 11.6-14.6 [facility] Comment on above: Performed By: #### L 500.4100, L500.2500, L100.0100 #### [facility] [address] [place], [address] Hematocrit (Bld) [Volume fraction] 37.4 % Normal 37-47 [facility] Comment on above: Performed By: #### L 500.4100, L500.2500, L100.0100 #### [facility] [address] [place], [address] Hemoglobin (Bld) [Mass/Vol] 12.5 g/dL Normal 12.0-15.0 [facility] Comment on above: Performed By: #### L 500.4100, L500.2500, L100.0100 #### [facility] [address] [place], [address] IG% 0.400 Normal 0.0-0.9 [facility] Comment on above: Result Comment: IG% - Immature Granulocytes (promyelocytes, myelocytes and metamyelocytes) > 1% indicates that a LEFT SHIFT is Present. Performed By: #### L 500.4100, L500.2500, L100.0100 #### [facility] [address] [place], [address] Lymphocytes/100 WBC (Bld) 18.8 % Low 19-41 [facility] Comment on above: Performed By: #### L 500.4100, L500.2500, L100.0100 #### [facility] [address] [place], [address] MCH (RBC) [Entitic mass] 30.7 pg Normal 27.0-32.0 [facility] Comment on above: Performed By: #### L 500.4100, L500.2500, L100.0100 #### [facility] [address] [place], [address] MCHC (RBC) [Mass/Vol] 33.4 g/dL Normal 32-36 [facility] Comment on above: Performed By: #### L 500.4100, L500.2500, L100.0100 #### [facility] [address] [place], [address] MCV (RBC) [Entitic vol] 91.9 fL Normal 81-99 [facility] Comment on above: Performed By: #### L 500.4100, L500.2500, L100.0100 #### [facility] [address] [place], [address] Monocytes/100 WBC (Bld) 10.7 % High 0-10 [facility] Comment on above: Performed By: #### L 500.4100, L500.2500, L100.0100 #### [facility] [address] [place], [address] Neutrophils/100 WBC (Bld) 67.5 % Normal 47-70 [facility] Comment on above: Performed By: #### L 500.4100, L500.2500, L100.0100 #### [facility] [address] [place], [address] Nucleated RBC (Bld) [#/Vol] 0 10*3/uL Normal 0-5 [facility] Comment on above: Performed By: #### L 500.4100, L500.2500, L100.0100 #### [facility] [address] [place], [address] Platelet mean volume (Bld) [Entitic vol] 9.6 fL Normal 6.2-12.0 [facility] Comment on above: Performed By: #### L 500.4100, L500.2500, L100.0100 #### [facility] [address] [place], [address] Platelets (Bld) [#/Vol] 215 10*3/uL Normal 150-450 [facility] Comment on above: Performed By: #### L 500.4100, L500.2500, L100.0100 #### [facility] [address] [place], [address] RBC (Bld) [#/Vol] 4.07 10*6/uL Low 4.2-5.4 [facility] Comment on above: Performed By: #### L 500.4100, L500.2500, L100.0100 #### [facility] [address] [place], [address] RDW SD 42.5 fl Normal 35.1-43.9 [facility] Comment on above: Performed By: #### L 500.4100, L500.2500, L100.0100 #### [facility] [address] [place], [address] WBC (Bld) [#/Vol] 4.9 10*3/uL Normal 4.4-11.0 [facility] Comment on above: Performed By: #### L 500.4100, L500.2500, L100.0100 #### [facility] [address] [place], [address] Calculated very low density lipoprotein (VLDL) cholesterol measurementOrdered By: Dany Hastings on 08-05-2024 Calculated very low density lipoprotein (VLDL) cholesterol measurement 25 mg/dL 5-40 [facility] Carbon dioxide, total [Moles /volume] in Central venous bloodOrdered By: Dany Hastings on 08-05-2024 CO2 [Moles/Vol] 22.4 mmol/L 21.0-32.0 [facility] Chloride assayOrdered By: Monserrat Hastings on 08-05-2024 Chloride [Moles/Vol] 106 mmol/L 98-108 [facility] Discharge Instructionon 05-0 Discharge Instruction [facility] Medical Records Department [address] [place] [address] Instructions for Home/Discharge Instructions 08/05/24 1304 MR#: [id number] Acct: [id number] Name: SLOANE RINALDI Rep #: [id number] : 1950 73 From: Reno Hagan DO PCP: Dr. Bryan Barboza MD Status:ADM IN Discharge Instructions Diet Discharge Diet: No restrictions DC O2, CPAP, BIPAP needs Home O2 Discharge instructions: No Dressing / Incision Discharge Activity: No Restrictions Follow Up Care Test Results: Test results from this visit will be discussed in further detail at your follow-up appointment, if applicable. Discharge Plan Admission Admit Date/Time: 08/04/24 18:13 Primary Reason for Your Visit: Strokelike symptoms Attending Provider: Reno Hagan Primary Care Provider: Bryan Barboza Consulting Providers: Dany Hastings; Marty Umaña; Leida Jones; Maddie Woody; Taniya Boss; Ana Pinto; Italo Zuniga; Dalila Ramon; Noman Montelongo; Daniel Benton; Ismael Aguirre; Viola Hicks; Rui Licea; Molly Lee; Nayeli Anderson; Allegra Dietz; Edin Edmonds; Austen Hill; Solitario Blair; Allyn Cazares; Chema Oates Instructions Additional Instructions / Restrictions: Take 6 more days of Augmentin to complete 7-day course of antibiotics for your tooth infection. Please wear the 30-day event monitor as you did before. Follow-up with your PCP and neurology after the monitor has been been completed. Discharge Orders/Prescription s Prescriptions: New atorvastatin 40 mg Tablet 40 mg PO QHS 30 Days Qty: 30 2RF amoxicillin-pot clavulanate 875-125 mg Tablet 1 tab PO BIDCM 6 Days Qty: 12 0RF Continued losartan-hydrochlor othiazide 50-12.5 mg tablet 0.5 tab PO DAILY aspirin 81 mg Tablet,Chewable 81 mg PO BREAKFAST Qty: 0 0RF levothyroxine 100 mcg tablet 100 mcg PO DAILY ipratropium bromide 42 mcg (0.06 %) spray,non-aerosol 2 spray INTRANASAL DAILY PRN (Reason: allergy symptoms) Other Ambulatory Orders: 30 Day Event Recorder Preventi (Urgent) Timeframe: 1 Month Facility: [facility] - Location: Cardiovascular Services Ordered By: Dr. Reno Hagan Referrals / Follow Up: Bryan Barboza MD [Primary Care Provider] - Disposition Disposition (needs filled in before D/C Order can be placed): Home, Self Care 08/05/24 1519 Reno Hagan DO CC: Taniya Boss; Molly Lee; Edin Edmonds; Ana Pinto MD; Maddie Woody MD; Marty Umaña MD; Dr. Leida Jones MD; Dr. Bryan Barboza MD; Dr. Italo Zuniga MD; Dr. Dalila Ramon MD; Dr. Daniel Benton MD; Dr. Noman Montelongo MD; Dr. Ismael Aguirre MD; Dr. Rui Licea DO; Dr. Allegra Dietz MD; Dr. Nayeli Anderson MD; Dr. Dany Hastings MD; Dr. Austen Hill MD; Dr. Solitario Blair MD; Dr. Allyn Cazares MD; Viola Hicks DO; Chema Oates MD Signed Normal [facility] Eosinophil percentageOrdered By: Dany Hastings on 08-05-2024 Eosinophils/100 WBC (Bld) 2.0 % 0-5 [facility] Erythrocyte distribution wid th ratioOrdered By: Dany Hastings on 08-05-2024 Erythrocyte distribution width (RBC) [Ratio] 12.6 % 11.6-14.6 [facility] Erythrocyte distribution wid th standard deviationOrdered By: Dany Hastings on 08-05-2024 Erythrocyte distribution width (RBC) [Ratio] 42.5 fl 35.1-43.9 [facility] Glomerular filtration rate ( GFR) estimation/1.73 sq m using serum, plasma, or whole bOrdered By: Dany Hastings on 08-05-2024 GFR/1.73 sq M.predicted among non-blacks MDRD (S/P/Bld) [Vol rate/Area] 92 mL/min/{1.73_m2} >60 [facility] Comment on above: mL/min/1.73m2 CKD-EP I Creatinine Equation (2020) Hematocrit Auto (Bld) [Volum e fraction]Ordered By: Dany Hastings on 08-05-2024 Hematocrit (Bld) [Volume fraction] 37.4 % 37-47 [facility] Hemoglobin measurementOrdere d By: Dany Hastings on 08-05-2024 Hemoglobin (Bld) [Mass/Vol] 12.5 g/dL 12.0-15.0 [facility] Immature granulocytes/100 WB C Auto (Bld)Ordered By: Dany Hastings on 08-05-2024 Immature granulocytes/100 WBC (Bld) 0.400 % 0.0-0.9 [facility] Comment on above: IG% - Immature Granu locytes (promyelocytes, myelocytes and metamyelocytes) > 1% indicates that a LEFT SHIFT is Present. LDL calc ser/plasOrdered By: Dany Hastings on 08-05-2024 Cholesterol in LDL [Mass/Vol] 118 mg/dL [facility] Comment on above: Eqnfeefthr=974-496 m g/dL & Higher Xzzv=280 mg/dL or greater Lipid Profileon 08-05-2024 CHOL:HDL 4.20 Normal [facility] Comment on above: Order Comment: Comme nts: NPO at [place] prior to lipid panel Performed By: #### L 500.4100, L500.2500, L100.0100 #### [facility] [address] [place], [address] Cholesterol [Mass/Vol] 188 mg/dL Normal <=200 [facility] Comment on above: Order Comment: Comme nts: NPO at [place] prior to lipid panel Result Comment: Chol esterol level, Desirable <200 mg/dL Borderline high cholesterol 200-239 mg/dL High cholesterol >=240 mg/dL Recommendations of the NCEP Adult Treatment Panel for the following risk-cutoff thresholds for the [place] population. Performed By: #### L 500.4100, L500.2500, L100.0100 #### [facility] [address] [place], [address] Cholesterol in HDL [Mass/Vol] 45 mg/dL Normal [facility] Comment on above: Order Comment: Comme nts: NPO at [place] prior to lipid panel Result Comment: Paulette onal Cholesterol Education Program (NCEP) guidelines: <40 mg/dL: Low HDL-cholesterol (major risk factor for CHD) >= 60 mg/dL: High HDL-cholesterol (negative risk factor for CHD) HDL-cholesterol is affected by a number of factors, e.g. smoking, exercise, hormones, sex and age. Performed By: #### L 500.4100, L500.2500, L100.0100 #### [facility] [address] [place], [address] Cholesterol in LDL [Mass/Vol] 118 mg/dL Normal [facility] Comment on above: Order Comment: Comme nts: NPO at [place] prior to lipid panel Result Comment: Bord jqvplk=095-658 mg/dL Higher Ucdq=033 mg/dL or greater Performed By: #### L 500.4100, L500.2500, L100.0100 #### [facility] [address] [place], [address] Cholesterol in VLDL [Mass/Vol] 25 mg/dL Normal 5-40 [facility] Comment on above: Order Comment: Comme nts: NPO at [place] prior to lipid panel Performed By: #### L 500.4100, L500.2500, L100.0100 #### [facility] [address] [place], [address] Triglyceride [Mass/Vol] 126 mg/dL Normal [facility] Comment on above: Order Comment: Comme nts: NPO at [place] prior to lipid panel Result Comment: The drugs N-Acetylcysteine and Metamizole may falsely depress this assay. Normal range: <150 mg/dL Borderline High: 150-199 mg/dL High: 200-499 mg/dL Very High: >500 mg/dL Performed By: #### L 500.4100, L500.2500, L100.0100 #### [facility] [address] [place], [address] MCV (mean corpuscular volume ) determinationOrdered By: Dany Hastings on 08-05-2024 MCV (RBC) [Entitic vol] 91.9 fL 81-99 [facility] MR/CON.PCM.NEon 08-05-2024 MR/CON.PCM.NE [facility] Medical Records Department [address] [place] [address] Consultation - Neurology 08/05/24 1239 MR#: [id number] Acct: [id number] Name: SLOANE RINALDI Rep #: [id number] : 1950 73 From: Solitario Blair MD PCP: Dr. Bryan Barboza MD Status:ADM IN Location: [address] Assessment and Plan: Stroke Assessment/Plan SLOANE RINALDI is a 73 F with a history of previous small infarct in R parietal who presents for evaluation of numbness and tingling of L arm. Neurological examination shows NIH 0. Neuroimaging shows MRI new punctate infarcts in same location as prior. - Anti-platelet medication: Aspirin 81 mg daily - Occupational/ Physical therapy consults - NPO until swallow evaluation. IVF until able to take po - DVT prophylaxis with SCDs and heparin SQ - Vascular risk factor modification. The following are the recommended guidelines: LDL Goal < 70 Smoking Cessation Diabetes Management snf blood pressure control should achieve <130/80 mmHg. BP management should aim to achieve termite treater contorl in a reasonable amount of time, taking into consideration the individual patient's requirements and characteristics. Weight Management: Goal for BMI is 18.5 -24.9 kg/m2 Alcohol: No more than 2 drinks/day for men or 1 drink/day for non- women - Promote lifestyle modification: weight control, physical activity, moderation of alcohol intake, moderate sodium intake. - Transfer to [facility] for the following reasons: Followup with PCP in 1-2 weeks, and in Neurology clinic in 6-12 weeks -ZENYE satinder peña. If wnl. Then consider JADYN since now she has had new events which look Cardioembolic. - MCT x 30 days. HPI Consult Data Date of Consult: 08/05/24 HPI Narrative HPI Narrative: SLOANE RINALDI, is a 73 F who presents [facility] Medical History Melanoma Lower extremity pain Home Medications ???Medication ???Instructions ???Recorded ???Last Taken ???Type aspirin 81 mg chewable tablet 81 mg PO BREAKFAST #0 tabs 4 08/04/24 Rx losartan 50 mg-hydrochlorothiaz dallin 0.5 tab PO DAILY 04/30/24 History 12.5 mg tablet ipratropium bromide 42 mcg (0.06 2 spray intranasal DAILY PRN 08/04 Unknown History %) nasal spray allergy symptoms levothyroxine 100 mcg tablet 100 mcg PO DAILY 08/04/24 08/04/24 History Allergy/AdvReac Type Severity Reaction Status Date / Time Sulfa (Sulfonamide Allergy unknown Verified 04/30/24 10:49 Antibiotics) Family History Mother , 81 No problems noted. 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 and animals: Yes pets and animals: dog(s) Smoking Status: Unknown if ever smoked alcohol intake: never caffeine: Yes Type: coffee Number of servings: 2 do you feel safe at home: Yes Vital Signs Vital Signs Vital Signs: 08/04/24 16:49 08/04/24 16:53 08/04/24 17:17 Temperature 97.2 F L Temperature Source Oral Pulse Rate 117 H 100 Pulse Strength Respiratory Rate 15 28 H Respiratory Effort Respiratory Depth Respiratory Pattern Blood Pressure 154/86 H 148/83 H Blood Pressure Mean 108 104 Blood Pressure Source Blood Pressure Position Blood Pressure Location Pulse Ox 94 Oxygen Delivery Method Room Air Room Air 08/04/24 17:30 08/04/24 18:00 08/04/24 18:41 Temperature 98.2 F Temperature Source Pulse Rate 92 94 94 Pulse Strength Respiratory Rate 18 26 H 26 H Respiratory Effort Respiratory Depth Respiratory Pattern Blood Pressure 152/95 H 145/88 H 145/88 H Blood Pressure Mean 114 107 107 Blood Pressure Source Blood Pressure Position Blood Pressure Location Pulse Ox 96 98 98 Oxygen Delivery Method Room Air Room Air 08/04/24 19:45 08/04/24 22:00 08/04/24 22:00 Temperature 97.3 F L Temperature Source Temporal Pulse Rate 95 Pulse Strength Normal (2+) Respiratory Rate 16 Respiratory Effort Respiratory Depth Respiratory Pattern Blood Pressure 151/101 H Blood Pressure Mean 117 Blood Pressure Source Blood Pressure Position Blood Pressure Location Pulse Ox 98 Oxygen Delivery Method Room Air Room Air 08/04/24 22:00 08/04/24 22:35 08/05/24 00:09 Temperature 97.3 F L 98.1 F Temperature Source Temporal Temporal Pulse Rate (more content not included)... Normal [facility] Mean corpuscular hemoglobin (MCH) determinationOrdered By: Dany Hastings on 08-05-2024 MCH (RBC) [Entitic mass] 30.7 pg 27.0-32.0 [facility] Mean corpuscular hemoglobin concentration (MCHC) determinationOrdered By: Dany Hastings on 08-05-2024 MCHC (RBC) [Mass/Vol] 33.4 g/dL 32-36 [facility] Mean platelet volume determi nationOrdered By: Dany Hastings on 08-05-2024 Platelet mean volume (Bld) [Entitic vol] 9.6 fL 6.2-12.0 [facility] Monocyte percentageOrdered B y: Dany Hastings on 08-05-2024 Monocytes/100 WBC (Bld) 10.7 % High 0-10 [facility] Neutrophil percentageOrdered By: Dany Hastings on 08-05-2024 Neutrophils/100 WBC (Bld) 67.5 % 47-70 [facility] Nucleated red blood cell per centageOrdered By: Dany Hastings on 08-05-2024 Nucleated RBC/100 WBC (Bld) [Ratio] 0 % 0-5 [facility] Platelet countOrdered By: Monserrat Hastings on 08-05-2024 Platelets (Bld) [#/Vol] 215 10*3/uL 150-450 [facility] Potassium measurement (mass/ volume)Ordered By: Dany Hastings on 08-05-2024 Potassium (Unsp spec) [Mass/Vol] 3.9 mmol/L 3.3-5.1 [facility] Comment on above: Hemolysis present, R esults could be affected. RBC Auto (Bld) [#/Vol]Ordere d By: Dany Hastings on 08-05-2024 RBC (Bld) [#/Vol] 4.07 10*6/uL Low 4.2-5.4 [facility] Screening total cholesterol/ high density lipoprotein (HDL) cholesterol ratioOrdered By: Dany Hastings on 08-05-2024 Cholesterol.total/Yaima sterol in HDL [Mass ratio] 4.20 {ratio} [facility] Serum creatinine measurement (mass/volume)Ordered By: Dany Hastings on 08-05-2024 Creatinine [Mass/Vol] 0.69 mg/dL Low 0.70-1.20 [facility] Serum glucose measurement (m ass/volume)Ordered By: Dany Hastings on 08-05-2024 Glucose [Mass/Vol] 90 mg/dL 70-99 [facility] Serum or plasma calcium miguel urement (mass/volume)Ordered By: Dany Hastings on 08-05-2024 Calcium [Mass/Vol] 9.1 mg/dL 7.6-11.0 [facility] Serum or plasma cholesterol in HDL measurement (mass/volume)Ordered By: Dany Hastings on 08-05-2024 Cholesterol in HDL [Mass/Vol] 45 mg/dL >40 [facility] Comment on above: National Cholesterol Education Program (NCEP) guidelines:<40 mg/dL: Low HDL-cholesterol (major risk factor for CHD)>= 60 mg/dL: High HDL-cholesterol (negative risk factor for CHD)HDL-cholesterol is affected by a number of factors, e.g. smoking, exercise, hormones, sex and age. Serum or plasma cholesterol measurement (mass/volume)Ordered By: Dany Hastings on 08-05-2024 Cholesterol [Mass/Vol] 188 mg/dL <201 [facility] Comment on above: Cholesterol level, D esirable <200 mg/dLBorderline high cholesterol 200-239 mg/dLHigh cholesterol >=240 mg/dLRecommendations of the NCEP Adult Treatment Panel for the following risk-cutoff thresholds for the [place] population. Serum or plasma urea nitroge n measurement (mass/volume)Ordered By: Dany Hastings on 08-05-2024 Urea nitrogen [Mass/Vol] 15 mg/dL 4-19 [facility] Sodium levelOrdered By: Cornelio Hastings on 08-05-2024 Sodium [Moles/Vol] 138 mmol/L 133-145 [facility] Triglycerides measurementOrd ered By: Dany Hastings on 08-05-2024 Triglyceride [Mass/Vol] 126 mg/dL <199 [facility] Comment on above: The drugs N-Acetylcy steine and Metamizole may falsely depress this assay. Normal range: <150 mg/dLBorderline High: 150-199 mg/dLHigh: 200-499 mg/dLVery High: >500 mg/dL White blood cell (WBC) count Ordered By: Dany Hastings on 08-05-2024 WBC (Bld) [#/Vol] 4.9 10*3/uL 4.4-11.0 [facility] 12 Lead EKGon 08-04-2024 12 Lead EKG [facility] Cardiovascular Services [address] [place] [address] 12 Lead EKG 08/04/24 1707 MR#: [id number] Acct: [id number] Name: SLOANE RINALDI Rep #: [id number] : 1950 73 From: Clif Johnson MD Attending Dr: Dr. Reno Hagan DO Status : ADM IN Ordering Dr: Josef Jang DO Date: 08/04/24 Location: U Sex: F C Admitted: 08/04/24 Test Reason : STROKE ALERT Blood Pressure : */* mmHG Vent. Rate : 96 BPM Atrial Rate : 96 BPM P-R Int : 168 ms QRS Dur : 140 ms QT Int : 406 ms P-R-T Axes : 33 -19 -3 degrees QTcB Int : 512 ms Normal sinus rhythm Right bundle branch block Abnormal ECG Confirmed by CALIN SMART, CLIF ([id number]), news copy editor ESTEFANI ALMANZAR ([id number]) on 08/05/2024 1:26:14 PM Referred By: Confirmed By: CLIF JOHNSON MD 08/05/24 1326 Date Clif Johnson MD CC: Dr. Reno Hagan DO; Dr. Bryan Barboza MD; Dr. Josef Jang DO Signed Normal [facility] Activated partial thrombopla stin time (aPTT) in platelet poor plasma by coagulation aOrdered By: Josef Jang on 08-04-2024 aPTT Coag (PPP) [Time] 24.4 s 24.1-36.2 [facility] Basic Metabolic Profile (BMP )on 08-04-2024 BUN/CRE 20.9 RATIO High 10-20 [facility] Comment on above: Performed By: #### L 500.4100, L500.2500, L100.0100 #### [facility] [address] [place], [address] Calcium [Mass/Vol] 9.6 mg/dL Normal 7.6-11.0 [facility] Comment on above: Performed By: #### L 500.4100, L500.2500, L100.0100 #### [facility] [address] [place], [address] Chloride [Moles/Vol] 103 mmol/L Normal 98-108 [facility] Comment on above: Performed By: #### L 500.4100, L500.2500, L100.0100 #### [facility] [address] [place], [address] CO2 [Moles/Vol] 23.5 mmol/L Normal 21.0-32.0 [facility] Comment on above: Performed By: #### L 500.4100, L500.2500, L100.0100 #### [facility] [address] [place], [address] Creatinine [Mass/Vol] 0.96 mg/dL Normal 0.70-1.20 [facility] Comment on above: Performed By: #### L 500.4100, L500.2500, L100.0100 #### [facility] [address] [place], [address] GAP 14 Normal 5-15 [facility] Comment on above: Performed By: #### L 500.4100, L500.2500, L100.0100 #### [facility] [address] [place], [address] GFR/1.73 sq M.predicted among non-blacks MDRD (S/P/Bld) [Vol rate/Area] 63 mL/min/{1.73_m2} Normal >60 [facility] Comment on above: Result Comment: mL/m in/1.73m2 CKD-EPI Creatinine Equation (2020) Performed By: #### L 500.4100, L500.2500, L100.0100 #### [facility] [address] [place], [address] Glucose [Mass/Vol] 124 mg/dL High 70-99 [facility] Comment on above: Performed By: #### L 500.4100, L500.2500, L100.0100 #### [facility] [address] [place], [address] Potassium [Moles/Vol] 3.7 mmol/L Normal 3.3-5.1 [facility] Comment on above: Result Comment: Hemo lysis present, Results??could be affected. ?? Performed By: #### L 500.4100, L500.2500, L100.0100 #### [facility] [address] [place], [address] Sodium [Moles/Vol] 140 mmol/L Normal 133-145 [facility] Comment on above: Performed By: #### L 500.4100, L500.2500, L100.0100 #### [facility] [address] [place], [address] Urea nitrogen [Mass/Vol] 20 mg/dL High 4-19 [facility] Comment on above: Performed By: #### L 500.4100, L500.2500, L100.0100 #### [facility] [address] [place], [address] CBC W/Diff, Automatedon 04-3 0-2025 Absolute Lymph 3.65 X10 3/uL Normal 0.83-4.51 [facility] Comment on above: Performed By: #### L 500.4100, L500.2500, L100.0100 #### [facility] [address] [place], [address] Absolute Neut 4.0 X10 3/uL Normal 2.0-7.7 [facility] Comment on above: Performed By: #### L 500.4100, L500.2500, L100.0100 #### [facility] [address] [place], [address] Basophils/100 WBC (Bld) 0.7 % Normal 0-1 [facility] Comment on above: Performed By: #### L 500.4100, L500.2500, L100.0100 #### [facility] [address] [place], [address] Eosinophils/100 WBC (Bld) 2.2 % Normal 0-5 [facility] Comment on above: Performed By: #### L 500.4100, L500.2500, L100.0100 #### [facility] [address] [place], [address] Erythrocyte distribution width (RBC) [Ratio] 12.6 % Normal 11.6-14.6 [facility] Comment on above: Performed By: #### L 500.4100, L500.2500, L100.0100 #### [facility] [address] [place], [address] Hematocrit (Bld) [Volume fraction] 41.9 % Normal 37-47 [facility] Comment on above: Performed By: #### L 500.4100, L500.2500, L100.0100 #### [facility] [address] [place], [address] Hemoglobin (Bld) [Mass/Vol] 14.3 g/dL Normal 12.0-15.0 [facility] Comment on above: Performed By: #### L 500.4100, L500.2500, L100.0100 #### [facility] [address] [place], [address] IG% 0.200 Normal 0.0-0.9 [facility] Comment on above: Result Comment: IG% - Immature Granulocytes (promyelocytes, myelocytes and metamyelocytes) > 1% indicates that a LEFT SHIFT is Present. Performed By: #### L 500.4100, L500.2500, L100.0100 #### [facility] [address] [place], [address] Lymphocytes/100 WBC (Bld) 41.4 % High 19-41 [facility] Comment on above: Performed By: #### L 500.4100, L500.2500, L100.0100 #### [facility] [address] [place], [address] MCH (RBC) [Entitic mass] 31.4 pg Normal 27.0-32.0 [facility] Comment on above: Performed By: #### L 500.4100, L500.2500, L100.0100 #### [facility] [address] [place], [address] MCHC (RBC) [Mass/Vol] 34.1 g/dL Normal 32-36 [facility] Comment on above: Performed By: #### L 500.4100, L500.2500, L100.0100 #### [facility] [address] [place], [address] MCV (RBC) [Entitic vol] 91.9 fL Normal 81-99 [facility] Comment on above: Performed By: #### L 500.4100, L500.2500, L100.0100 #### [facility] [address] [place], [address] Monocytes/100 WBC (Bld) 10.4 % High 0-10 [facility] Comment on above: Performed By: #### L 500.4100, L500.2500, L100.0100 #### [facility] [address] [place], [address] Neutrophils/100 WBC (Bld) 45.1 % Low 47-70 [facility] Comment on above: Performed By: #### L 500.4100, L500.2500, L100.0100 #### [facility] [address] [place], [address] Nucleated RBC (Bld) [#/Vol] 0 10*3/uL Normal 0-5 [facility] Comment on above: Performed By: #### L 500.4100, L500.2500, L100.0100 #### [facility] [address] [place], [address] Platelet mean volume (Bld) [Entitic vol] 9.4 fL Normal 6.2-12.0 [facility] Comment on above: Performed By: #### L 500.4100, L500.2500, L100.0100 #### [facility] [address] [place], [address] Platelets (Bld) [#/Vol] 267 10*3/uL Normal 150-450 [facility] Comment on above: Performed By: #### L 500.4100, L500.2500, L100.0100 #### [facility] [address] [place], [address] RBC (Bld) [#/Vol] 4.56 10*6/uL Normal 4.2-5.4 [facility] Comment on above: Performed By: #### L 500.4100, L500.2500, L100.0100 #### [facility] [address] [place], [address] RDW SD 42.5 fl Normal 35.1-43.9 [facility] Comment on above: Performed By: #### L 500.4100, L500.2500, L100.0100 #### [facility] [address] [place], [address] WBC (Bld) [#/Vol] 8.8 10*3/uL Normal 4.4-11.0 [facility] Comment on above: Performed By: #### L 500.4100, L500.2500, L100.0100 #### [facility] [address] [place], [address] Chest PA and Lateralon 08-04 Chest PA and Lateral [facility] Imaging Services [address] [place] [address] Chest PA and Lateral MR#: [id number] Acct: [id number] Name: SLOANE RINALDI Rep #: [id number] : 1950 F 73 From: Cisco Wong MD PCP: Dr. Bryan Barboza MD Status: REG ER Study: Chest PA and Lateral Date of Exam: 08/04/24 Exam# [id number] Ordering Dr: Josef Jang DO PROCEDURE: CHEST PA AND LATERAL (RADCXR), 08/04/2024 REASON FOR EXAM: TIGLINGING AND VISION CHANGES TECHNIQUE: PA and lateral views of the chest were obtained. COMPARISON: 05/28/2023 FINDINGS: Heart: Unremarkable. Mediastinum: Atherosclerosis. Aortic tortuosity, unable to exclude ectasia/aneurysm. Lungs/pleura: No convincing focal consolidation allowing for chest wall attenuation. No pleural effusion or visible pneumothorax. Bones: Demineralization. Similar thoracic dextroscoliosis.. Multilevel spondylosis. Lines and support devices: None. Other: Clips similar RIGHT axillary surgical. RAD/Chest PA and Lateral IMPRESSION: 1. No convincing or visible acute cardiopulmonary findings 2. Additional description as above. Reading Location: [facility] CC: Dr. Bryan Barboza MD; Dr. Josef Jang DO [place] Steward: Signed Normal [facility] Echo Completeon 08-04-2024 Echo Complete [facility] [address] [place] [address] Echo Complete 08/05/24 0937 MR#: [id number] Acct: [id number] Name: SLOANE RINALDI Rep #: [id number] : 1950 73 From: Walter Dallas MD Attending Dr: Dr. Reno Hagan DO Status : ADM IN Ordering Dr: Dany Hastings MD Date: 08/04/24 Location: PCU Sex: F C Admitted: 08/04/24 Reason For Study Reason For Study: TIA/CVA Procedure This was a 2D Doppler, Color Flow transthoracic echocardiogram. Exam performed portable in patient room. Left Ventricle Normal LV size. Left ventricular systolic function is normal. The estimated ejection fraction is 65 %. Diastolic function is indeterminate. No regional wall motion abnormalities noted. Right Ventricle Normal RV size. Normal systolic function. Atria Normal left atrium. Normal right atrium. Mitral Valve Moderate mitral annular calcification. Trivial mitral valve insufficiency. Tricuspid Valve Normal tricuspid valve. Mild (1+) tricuspid valve insufficiency. Pulmonary artery systolic pressure is 28 mmHg. Aortic Valve Trisinus/trileaflet aortic valve. Mild focal aortic valve calcification. There is no aortic stenosis. Pulmonic Valve Normal pulmonic valve. Trivial pulmonic valve insufficiency. Great Vessels Normal sized aortic root. Pericardium/Pleural No pericardial effusion. MMode/2D Measurements Calculations LVIDd: 5.3 cm IVSd: 0.86 cm Ao root diam: 3.2 cm LVIDs: 3.2 cm LVPWd: 0.91 cm RVDd: 2.6 cm FS: 39.3 % __ LAV(MOD-bp): 62.4 ml LVAd ap4: 21.9 cm2 LVAd ap2: 18.0 cm2 LAV(MOD-bp) Indexed: 32.4 ml/m2 LVLd ap4: 6.6 cm LVLd ap2: 6.8 cm LAV(MOD-sp2): 54.5 ml EDV(MOD-sp4): 59.4 ml EDV(MOD-sp2): 40.6 ml LAV(MOD-sp4): 69.7 ml EDV(sp4-el): 61.5 ml EDV(sp2-el): 40.3 ml LVAs ap4: 11.2 cm2 LVAs ap2: 9.3 cm2 LVLs ap4: 5.5 cm LVLs ap2: 5.3 cm ESV(MOD-sp4): 21.2 ml ESV(MOD-sp2): 14.3 ml ESV(sp4-el): 19.2 ml ESV(sp2-el): 13.9 ml EF(MOD-sp4): 64.3 % EF(MOD-sp2): 64.8 % EF(sp4-el): 68.8 % __ SV(MOD-sp4): 38.1 ml SV(MOD-sp2): 26.3 ml SV(sp4-el): 42.3 ml SI(MOD-sp4): 19.8 ml/m2 SI(MOD-sp2): 13.7 ml/m2 __ LA A4 area: 22.3 cm2 LA dimension(2D): 4.0 cm RA A4 area: 12.7 cm2 __ TAPSE: 2.0 cm Time Measurements MV dec time: 0.24 sec Doppler Measurements Calculations MV E max nela: 120.9 cm/sec Lat Peak E' Nela: 3.9 cm/sec Med Peak E' Nela: 5.2 cm/sec MV A max nela: 164.1 cm/sec E/E' lat: 30.7 E/E' med: 23.1 MV E/A: 0.74 __ MV V2 max: 198.4 cm/sec MV P1/2t max nela: 131.6 cm/sec Ao V2 max: 142.8 cm/sec MV max P.8 mmHg MV P1/2t: 57.9 msec Ao max P.2 mmHg MV V2 mean: 109.3 cm/sec Ao V2 mean: 102.5 cm/sec MV mean P.5 mmHg MV dec slope: 665.6 cm/sec2 Ao mean P.7 mmHg MV V2 VTI: 45.5 cm MVA(P1/2t): 3.8 cm2 Ao V2 VTI: 33.2 cm AV (velocity ratio): 0.76 __ LV V1 max: 105.7 cm/sec PA V2 max: 94.7 cm/sec TR max nela: 240.5 cm/sec LV V1 max P.5 mmHg PA V2 mean: 64.9 cm/sec TR max P.1 mmHg LV V1 mean P.8 mmHg LV V1 mean: 78.9 cm/sec LV V1 VTI: 25.3 cm ECHO/Echo Complete Interpretation Summary The estimated ejection fraction is 65 %. Diastolic function is indeterminate. Moderate mitral annular calcification. Mild (1+) tricuspid valve insufficiency. Mild focal aortic valve calcification. __ Ordering Physician: Dany Hastings Referring Physician: Bryan Barboza Performed By: Starla Campbell, RDCS, RVT 08/05/24 1452 Date Walter Dallas MD CC: Dr. Reno Hagan DO; Dr. Bryan Barboza MD; Dr. Dany Hastings MD Date Dictated: 08/05/2437 Date Transcribed: 08/05/241451 [place] Steward: Signed Normal [facility] Emergency Department Summary on 08-04-2024 Emergency Department Summary [facility] Medical Records Department [address] [place] [id number] Emergency Department Summary 08/04/24 MR#: [id number] Acct: [id number] Name: SLOANE RINALDI Rep #: [id number] : 1950 73 From: Josef Jang DO PCP: Dr. Bryan Barboza MD Status:ADM IN Location: [address] History of Present Illness Chief Complaint: Neuro S/Sx Narrative Narrative: Patient is a 73-year-old female past medical history of melanoma, TIA, hypertension who presents to the emergency department the chief complaint of left arm numbness and tingling and vision changes out of her left eye with left facial numbness and tingling. Patient states that her symptoms started approximately 20 minutes prior to arrival here which was around 4:30 PM. Patient denies any blood thinning medications. States that she feels pressure on the left side of her head currently denies any falls or injuries to her head. Patient states that currently her left arm numbness and tingling is getting better and her changes in her vision have improved. [facility] Medical History Melanoma Lower extremity pain Home Medications ???Medication ???Instructions ???Recorded ???Last Taken ???Type aspirin 81 mg chewable tablet 81 mg PO BREAKFAST #0 tabs 4 08/04/24 Rx losartan 50 mg-hydrochlorothiaz dallin 0.5 tab PO DAILY 04/30/24 History 12.5 mg tablet ipratropium bromide 42 mcg (0.06 2 spray intranasal DAILY PRN 08/04 Unknown History %) nasal spray allergy symptoms levothyroxine 100 mcg tablet 100 mcg PO DAILY 08/04/24 08/04/24 History Allergy/AdvReac Type Severity Reaction Status Date / Time Sulfa (Sulfonamide Allergy unknown Verified 04/30/24 10:49 Antibiotics) Family History Mother , 81 No problems noted. 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 and animals: Yes pets and animals: dog(s) Smoking Status: Never smoker alcohol intake: never caffeine: Yes Type: coffee Number of servings: 2 do you feel safe at home: Yes ROS ROS ED ROS Narrative Constitutional: Complains of head pressure as noted above denies lightheadedness dizziness Eyes: Complains of changes vision left eye denies double vision Cardiovascular: Denies chest pain Respiratory: Denies coughing wheezing shortness of breath Abdomen: Denies abdominal pain nausea vomit diarrhea : Denies urinary symptoms Neurological: Complains of left arm numbness and tingling as well as left facial numbness tingling as noted above Musculoskeletal: Denies back pain Skin: Denies rashes or lesions EXAM Physical Exam Narrative Exam Narrative: General: Patient lying in bed rest comfortably did not appear to be in acute distress Head: Atraumatic, normocephalic Eyes: PERRL bilaterally, EOMI bilateral, no conjunctival injection noted Neck: Soft, supple, trachea midline Cardiovascular: Patient tachycardic with regular rhythm no murmurs gallops rubs noted Respiratory: Clear to auscultation bilaterally Abdomen: Soft, nondistended, nontender to palpation Extremities: +5/5 strength noted in the bilateral upper and lower extremities, radial pulses +2/4 in the bilateral extremities, no pedal edema on exam Neurological: Patient following commands knew that she was at [facility] year is 2024. NIH of 1 GCS 15 Skin: Warm, dry, intact no rashes or lesions noted Const Vital Signs: 08/04/24 16:49 08/04/24 16:53 08/04/24 17:17 Temperature 97.2 F L Temperature Source Oral Pulse Rate 117 H 100 Respiratory Rate 15 28 H Blood Pressure 154/86 H 148/83 H Blood Pressure Mean 108 104 Pulse Ox 94 Oxygen Delivery Method Room Air Room Air 08/04/24 17:30 08/04/24 18:00 Temperature Temperature Source Pulse Rate 92 94 Respiratory Rate 18 26 H Blood Pressure 152/95 H 145/88 H Blood Pressure Mean 114 107 Pulse Ox 96 98 Oxygen Delivery Method Room Air Room Air MDM MDM MDM Narrative Medical decision making narrative: Patient is a 73-year-old female who presents to the emergency department with a chief complaint of left facial and left arm numbness and tingling and left vision changes states that she saw prisms out of the left eye. Patient does note that she does not have a headache but she does have head pressure. On the differential diagnose includes but not limited to complex mi (more content not included)... Normal [facility] Glucose measurement at [facility] deOrdered By: Reno Hagan on 08-04-2024 Glucose [Mass/Vol] 113 mg/dL High 74-106 [facility] Comment on above: MANAGEMENT OF PATIEN T CARE PER NURSING PROTOCOL H AND P Exam - [facility] 08-04-2024 H&P Exam - Hospitalist [facility] Medical Records Department [address] [place] [address] H P Exam - Hospitalist 08/04/24 193 MR#: [id number] Acct: [id number] Name: SLOANE RINALDI Rep #: [id number] : 1950 73 From: Dany Hastings MD PCP: Dr. Bryan Barboza MD Status:ADM IN [facility] - General General Date of Admission: 08/04/24 HPI Narrative SLOANE RINALDI, is a 73 F who presents to the hospital with signs and symptoms consistent of a stroke. She has had a history of a previous TIA back in March and presents today at around 5 PM for of left facial numbness and tingling of the left as well as changes in vision of her left eye and left arm numbness and tingling. Symptoms started approximately 20 minutes prior to arrival and have since improved significantly but have not resolved. She has also had issues with periapical abscesses in the left side of her mouth that was lanced in the ER by the ED physician and she was given a dose of Augmentin. She has had multiple dental issues in the past and does appear based on CT scans that she is continuing to have these issues and needs to follow-up with a dentist as an outpatient. She did notice head pressure around the time of her symptoms but denies any overt headache. [facility] Medical History Melanoma Lower extremity pain Home Medications ???Medication ???Instructions ???Recorded ???Last Taken ???Type aspirin 81 mg chewable tablet 81 mg PO BREAKFAST #0 tabs 4 08/04/24 Rx losartan 50 mg-hydrochlorothiaz dallin 0.5 tab PO DAILY 04/30/24 History 12.5 mg tablet ipratropium bromide 42 mcg (0.06 2 spray intranasal DAILY PRN 08/04 Unknown History %) nasal spray allergy symptoms levothyroxine 100 mcg tablet 100 mcg PO DAILY 08/04/24 08/04/24 History Allergy/AdvReac Type Severity Reaction Status Date / Time Sulfa (Sulfonamide Allergy unknown Verified 04/30/24 10:49 Antibiotics) Family History Mother , 81 No problems noted. 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 and animals: Yes pets and animals: dog(s) Smoking Status: Never smoker alcohol intake: never caffeine: Yes Type: coffee Number of servings: 2 do you feel safe at home: Yes ROS Constitutional Constitutional: Denies chills, fatigue, fever(s) or malaise Eyes Eyes: Reports blurry vision ENT HEENT: Denies headache(s) or nasal discharge Cardiovascular Cardiovascular: Denies chest pain, dyspnea on exertion or syncope Respiratory/Chest Respiratory/Chest: Denies cough, shortness of breath at rest or shortness of breath with exertion Gastrointestinal Gastrointestinal: Denies constipation, diarrhea, nausea or vomiting Genitourinary Genitourinary: Denies dysuria Neurologic Neurologic: Reports paresthesias and tingling; Denies focal weakness, numbness or tremor(s) Psychiatric Psychiatric: Denies anxiety or depression Vital Signs Vital Signs Vital Signs: 08/04/24 16:49 08/04/24 16:53 08/04/24 17:17 Temperature 97.2 F L Temperature Source Oral Pulse Rate 117 H 100 Respiratory Rate 15 28 H Blood Pressure 154/86 H 148/83 H Blood Pressure Mean 108 104 Pulse Ox 94 Oxygen Delivery Method Room Air Room Air 08/04/24 17:30 08/04/24 18:00 08/04/24 18:41 Temperature 98.2 F Temperature Source Pulse Rate 92 94 94 Respiratory Rate 18 26 H 26 H Blood Pressure 152/95 H 145/88 H 145/88 H Blood Pressure Mean 114 107 107 Pulse Ox 96 98 98 Oxygen Delivery Method Room Air Room Air Weight Weight: 220 lb 14.451 oz Body Mass Index (BMI) 39.1 Physical Exam Narrative General: Alert, Oriented x3, Cooperative, No apparent distress HEENT: Atraumatic, PERRLA, EOMI, Normocephalic Oral: Moist Mucosa Neck: Supple, No JVD Lungs: Diminished, Normal air movement, No rhonchi, No wheeze, No rales Cardiovascular: Regular rate, Regular Rhythm, Normal S1, Normal S2, No murmurs Abdomen: Soft, Non Tender, Non-Distended, No Hepato-splenomegaly Extremities: No edema, Capillary Refill Less than 3 Seconds Skin: No rashes, No breakdown Musculoskeletal: No Tenderness to Palpation of Joints or Extremities Neurological: No focal neurological deficits, Motor Exam 5/5 strength throughout, Sensory exam intact to light touch and pain, NIH of 1 Psych/Mental Status: Normal Affect, Appropri (more content not included)... Normal [facility] International normalized rat io (INR) calculationOrdered By: Josef Jang on 08-04-2024 INR Coag (Bld) [Relative time] 1.0 {INR} [facility] L499.0042on 08-04-2024 Trop T High Sen 7 ng/L Normal <=14 [facility] Comment on above: Performed By: #### L 499.0042 #### [facility] [address] [place], [address] L499.0043on 08-04-2024 Trop T High Sen 7 ng/L Normal <=14 [facility] Comment on above: Performed By: #### L 499.0043 ####[facility] [address] [place], [address] L501.4021on 08-04-2024 Trop T High Sen < 6 Normal <=14 [facility] Comment on above: Performed By: #### L 500.4100, L500.2500, L100.0100 #### [facility] [address] [place], [address] Partial Thromboplast Timeon 08-04-2024 aPTT Coag (Bld) [Time] 24.4 s Normal 24.1-36.2 [facility] Comment on above: Performed By: #### L 500.4100, L500.2500, L100.0100 #### [facility] [address] [place], [address] Prothrombin Time w/INRon INR Coag (PPP) [Relative time] 1.0 {INR} Normal [facility] Comment on above: Performed By: #### L 500.4100, L500.2500, L100.0100 #### [facility] [address] [place], [address] PT Coag (PPP) [Time] 13.1 s Normal 11.7-14.9 [facility] Comment on above: Performed By: #### L 500.4100, L500.2500, L100.0100 #### [facility] [address] [place], [address] Prothrombin timeOrdered By: Josef Jang on 08-04-2024 PT Coag (PPP) [Time] 13.1 s 11.7-14.9 [facility] STROKE Brain/Head without Co nton 08-04-2024 STROKE Brain/Head without Cont [facility] Imaging Services [address] [place], [place] [address] STROKE Brain/Head without Cont MR#: [id number] Acct: [id number] Name: SLOANE RINALDI Rep #: [id number] : 1950 F 73 From: Cisco Wong MD PCP: Dr. Bryan Barboza MD Status: REG ER Study: STROKE Brain/Head without Cont Date of Exam: 0 08/04/24 Exam# [id number] Ordering Dr: Josef Jang DO PROCEDURE: STROKE BRAIN/HEAD WITHOUT CONT (CTBR.ST), 08/04/2024 REASON FOR EXAM: NEURO DEFICIT, ACUTE, STROKE SUSPECTED COMPARISON: 03/27/2024 TECHNIQUE: CT head was performed without IV contrast. Multiplanar reformats were generated. RADIATION DOSE SUMMARY: CTDlvol: 44.99 mGy DLP: 796.11 mGycm One or more dose reduction techniques were used (e.g., Automated exposure control, adjustment of the mA and/or kV according to patient size, use of iterative reconstruction technique). FINDINGS: Cerebrum: Unremarkable. Cerebellum/brainste m: Unremarkable. Note slight limitation due to beam hardening artifact. Ventricles/extra-ax ial spaces: Unremarkable. Paranasal sinuses/mastoid air cells: Unremarkable. Scalp/calvarium: Unremarkable. Other: Intracranial atherosclerosis. CT/STROKE Brain/Head without Cont IMPRESSION: 1. No visible acute intracranial findings. If there is persistent concern, consider MRI. 2. Additional description as above. Red Alert: As above The critical information above was relayed directly by me by telephone to Josef Jang on 08/04/2024 at 3:16 pm. Reading Location: [facility] CC: Dr. Bryan Barboza MD; Dr. Josef Jang DO [employer]: Signed Normal [facility] STROKE CTA Head AND Neck W/C onon 08-04-2024 STROKE CTA Head AND Neck W/Con [facility] Imaging Services [address] [place], [place] [id number] STROKE CTA Head AND Neck W/Con MR#: [id number] Acct: [id number] Name: SLOANE RINALDI Rep #: [id number] : 1950 F 73 From: Cisco Wong MD PCP: Dr. Bryan Barboza MD Status: REG ER Study: STROKE CTA Head AND Neck W/Con Date of Exam: 0 08/04/24 Exam# [id number] Ordering Dr: Josef Jang DO PROCEDURE: STROKE CTA HEAD AND NECK W/CON 08/04/2024 REASON FOR EXAM: NEURO DEFICIT, ACUTE, STROKE SUSPECTED TECHNIQUE: CTA head and neck was performed with IV contrast. Multiplanar reformats as well as MIP and 3D reconstructions were generated. CONTRAST: Isovue 370 VOLUME: 100mL RADIATION DOSE SUMMARY: CTDlvol: 7.59+ 26.19 mGy DLP: 907.17 mGycm One or more dose reduction techniques were used (e.g., Automated exposure control, adjustment of the mA and/or kV according to patient size, use of iterative reconstruction technique). COMPARISON: 03/15/2024 FINDINGS: CTA NECK: Aortic Arch: Atherosclerosis. Three-vessel arch. Brachiocephalic and subclavians: Nonobstructing atherosclerosis at the brachiocephalic and RIGHT subclavian origins as well as along the proximal LEFT subclavian. RIGHT Carotid: Right CCA: Nonobstructing atherosclerosis in the bulb.. Tortuosity proximally. Right ICA: Mild roughly 20% stenosis along the proximal ICA. Retropharyngeal course. Right ECA: Nonobstructing atherosclerosis proximally. LEFT Carotid: Left CCA: Nonobstructing atherosclerosis in the bulb. Tortuosity proximally. Left ICA: Nonobstructing atherosclerosis of the origin. Left ECA: Nonobstructing atherosclerosis proximally. Vertebrals: Codominant. Arise from the subclavians. Both vertebrals form the basilar. RIGHT Vertebral: Patent. Mild tortuosity proximally and at the level of C2. LEFT Vertebral: Patent. Mild tortuosity proximally and marked tortuosity at the level of C2. slightly diminutive distal V4 segment. CTA HEAD: Slight limitation related to venous contamination. Anterior circulation: Nonobstructing atherosclerosis in the carotid siphons.. Posterior circulation: Patent. Venous structures: Grossly unremarkable within limits of nondedicated technique. Other: Demineralization. Multilevel spondylosis.. Periapical lucency surrounding the roots of the posterior most LEFT mandibular tooth suspicious for periapical abscess. Similar but smaller findings along RIGHT maxillary teeth. CT/STROKE CTA Head AND Neck W/Con IMPRESSION: 1. No high-grade stenosis or large vessel occlusion identified. 2. Recommend outpatient dental consultation for above findings suspicious for periapical abscess. 3. Additional description as above. Reading Location: [id number] CC: Dr. Bryan Barboza MD; Dr. Josef Jang DO [employer]: Signed Normal [facility] Troponin T.cardiac [Mass/vol ume] in Serum or Plasma by High sensitivity methodOrdered By: Josef Jang on 08-04-2024 Troponin T.cardiac High sensitivity method [Mass/Vol] 7 ng/L <14 [facility] Troponin T.cardiac High sensitivity method [Mass/Vol] 7 ng/L <14 [facility] Troponin T.cardiac High sensitivity method [Mass/Vol] < 6 ng/L <14 [facility] 36on 05-25-2024 36 Ferritin is down to 313 and calcium essentially unchanged. My chart message sent to pt to confirm dose of calcium carbonate is 500 mg every other day. Normal [facility] BASIC METABOLIC PANELon 05-08 Anion gap [Moles/Vol] 8 mmol/L Normal 3-13 [facility] Comment on above: Order Comment: These orders are set for an approximate date - they can be drawn up to 3 months prior to the Expected Date on this Req. Please send results to: Bryan Barboza Jessenia Marie [facility] [address] [facility] [phone] - [phone] And if not done at a [place] [facility], please send to: [facility] - [address] [place] [address], [address] Patient Name: Sloane Ruelas 1950 Order Created by : Sherice Caruso Performed By: #### L AB17, [id number], LAB68, LAB69, LAB67, LAB18 #### Coo: GINO FLANAGAN ([id number]) [facility] [employer] ([employer]) [address] [place] [address] Calcium [Mass/Vol] 10.2 mg/dL High 8.8-10.0 [facility] Comment on above: Order Comment: These orders are set for an approximate date - they can be drawn up to 3 months prior to the Expected Date on this Req. Please send results to: Bryan Barboza eJssenia Campbell [facility] [address] [facility] [address] - [phone] And if not done at a [facility] [facility], please send to: [facility] - [address] [place] [address], [address] Patient Name: Sloane Rinaldi - 1950 Order Created by : Sherice Caruso Performed By: #### L AB17, [id number], LAB68, LAB69, LAB67, LAB18 #### Coo: GINO FLANAGAN ([id number]) [facility] [employer] (SWRL[employer]) [address] [place] [address] Chloride [Moles/Vol] 105 mmol/L Normal 98-107 [facility] Comment on above: Order Comment: These orders are set for an approximate date - they can be drawn up to 3 months prior to the Expected Date on this Req. Please send results to: Bryan Barboza - [facility] [address] [facility] [address] [facility] [phone] - [phone] And if not done at a [facility], please send to: [facility] - [address] [place] [address], [address], [address] Patient Name: Sloane Ruelas 1950 Order Created by : Sherice Caruso Performed By: #### L AB17, [id number], LAB68, LAB69, LAB67, LAB18 #### Coo: GINO FLANAGAN ([id number]) [facility] [employer]TE RITTMAN ([employer]) [address] [place] [address] CO2 [Moles/Vol] 30 mmol/L Normal 23-31 [facility] Comment on above: Order Comment: These orders are set for an approximate date - they can be drawn up to 3 months prior to the Expected Date on this Req. Please send results to: Bryan Barboza [facility] [address] [facility] [address] [facility] [phone] - [phone] And if not done at a [facility] [facility], please send to: [facility] - [address] [place] [address], [address], [address] Patient Name: Sloane Rinaldi - 1950 Order Created by : Sherice Caruso Performed By: #### L AB17, [id number], LAB68, LAB69, LAB67, LAB18 #### Coo: GINO FLANAGAN ([id number]) [facility] [employer]ITTMAN (SWRLAB) [address] [place] [address] Creatinine [Mass/Vol] 0.81 mg/dL Normal 0.57-1.11 [facility] Comment on above: Order Comment: These orders are set for an approximate date - they can be drawn up to 3 months prior to the Expected Date on this Req. Please send results to: Bryan Barbzoa - [address] [place] [address] [facility] [phone] - [phone] And if not done at a [facility] [facility], please send to: [facility] - [address] [place] [address], [address] Patient Name: Sloane Ruelas 1950 Order Created by : Sherice Caruso Performed By: #### L AB17, [id number], LAB68, LAB69, LAB67, LAB18 #### Coo: GINO FLANAGAN ([id number]) [facility] [employer] (SW[employer]) [address] [place] [address] GLOMERULAR FILTRATION RATE ML/MIN/1.73 SQ M.PREDICTED 77.2 mL/min/1.73m*2 Normal >60.0 [facility] Comment on above: Order Comment: These orders are set for an approximate date - they can be drawn up to 3 months prior to the Expected Date on this Req. Please send results to: Bryan Collado [facility] [place] [address] [facility] [phone] - [phone] And if not done at a [place] [facility], please send to: [facility] - [address] [place] [address], [address] Patient Name: Sloane Rinaldi - 1950 Order Created by : Sherice Caruso Result Comment: Calc ulation based on the Chronic Kidney Disease Epidemiology Collaboration (CKD-EPI) equation refit without adjustment for race Performed By: #### L AB17, [id number], LAB68, LAB69, LAB67, LAB18 #### Coo: GINO FLANAGAN ([id number]) [facility] [employer] (SWRLAB) [address] [place] [address] [place] Glucose [Mass/Vol] 77 mg/dL Low 82-115 [facility] Comment on above: Order Comment: These orders are set for an approximate date - they can be drawn up to 3 months prior to the Expected Date on this Req. Please send results to: Bryan [address] Darshan [address] [facility] [phone] - [phone] And if not done at a [facility], please send to: [address], [address] Patient Name: Sloane Rinaldi - 1950 Order Created by : Sherice Caruso Performed By: #### L AB17, UOT555, LAB68, LAB69, LAB67, LAB18 #### Coo: GINO FLANAGAN ([id number]) [facility] (SWRLAB) [address] [place] [address] Potassium [Moles/Vol] 4.6 mmol/L Normal 3.5-5.1 [facility] Comment on above: Order Comment: These orders are set for an approximate date - they can be drawn up to 3 months prior to the Expected Date on this Req. Please send results to: Bryan Barboza [address] [facility] [phone] - [phone] And if not done at a [facility] [facility], please send to: [facility] - [address] [place] [address], [address] Patient Name: Sloane Rinaldi - 1950 Order Created by : Sherice Caruso Result Comment: [facility] potassium values may be up to 0.5 mmol/L lower than serum values. Performed By: #### L AB17, [id number], LAB68, LAB69, LAB67, LAB18 #### Coo: GINO FLANAGAN ([id number]) [facility] [employer]TE [employer] (SWRL[employer]) [address] [place] [address] [place] Sodium [Moles/Vol] 143 mmol/L Normal 136-145 [facility] Comment on above: Order Comment: These orders are set for an approximate date - they can be drawn up to 3 months prior to the Expected Date on this Req. Please send results to: Bryan Barboza - [address] [facility] [address] [facility] [phone] - [phone] And if not done at a [facility] [facility], please send to: [facility] - [address] [place] [address], [address] Patient Name: Sloane Rinaldi - 1950 Order Created by : Sherice Caruso Performed By: #### L AB17, CUH886, LAB68, LAB69, LAB67, LAB18 #### Coo: GINO FLANAGAN ([id number]) [facility] [employer] (SW[employer]) [address] [place] [address] Urea nitrogen [Mass/Vol] 20 mg/dL Normal 9-23 [facility] Comment on above: Order Comment: These orders are set for an approximate date - they can be drawn up to 3 months prior to the Expected Date on this Req. Please send results to: Bryan Barboza - [address] [facility] [address] [facility] [phone] - [phone] And if not done at a [facility] [facility], please send to: [facility] - [address] [place] [address], [address] Patient Name: Sloane Rinaldi - 1950 Order Created by : Sherice Caruso Performed By: #### L AB17, [id number], LAB68, LAB69, LAB67, LAB18 #### Coo: GINO FLANAGAN ([id number]) [facility] [employer] (SWRL[employer]) [address] [place] [address] Basic metabolic 1998 panelon 05-24-2024 Anion gap [Moles/Vol] 8 mmol/L 3 - 13 mmol/L [facility] Calcium [Mass/Vol] 10.2 mg/dL High 8.8 - 10. 0 mg/dL [facility] Chloride [Moles/Vol] 105 mmol/L 98 - 10 7 mmol/L [facility] CO2 [Moles/Vol] 30 mmol/L 23 - 31 mmol/L [facility] Creatinine [Mass/Vol] 0.81 mg/dL 0.57 - 1.11 mg/dL [facility] GFR/1.73 sq M.predicted (S/P/Bld) [Vol rate/Area] 77.2 mL/min - PINF [facility] Comment on above: Calculation based on the Chronic Kidney Disease Epidemiology Collaboration (CKD-EPI) equation refit without adjustment for race Glucose [Mass/Vol] 77 mg/dL Low 82 - 115 mg/dL [facility] Interpretation and review of laboratory results Abnormal [facility] Potassium [Moles/Vol] 4.6 mmol/L 3.5 - 5.1 mmol/L [facility] Comment on above: Plasma potassium dre ues may be up to 0.5 mmol/L lower than serum values. Sodium [Moles/Vol] 143 mmol/L 136 - 145 mmol/L [facility] Urea nitrogen [Mass/Vol] 20 mg/dL 9 - 23 mg/dL [facility] FERRITINon 05-24-2024 Ferritin [Mass/Vol] 313 ng/mL High 5-204 [facility] Comment on above: Result Comment: JULIANE Manzanares COMMENTS: These orders are set for an approximate date - they can be drawn up to 3 months prior to the Expected Date on this Req. Please send results to: Bryan [address] [address] - [phone] And if not done at a [facility] [facility], please send to: [facility] [place] - [address] [place] [address], [address], [address] Patient Name: Sloane Rinaldi - 1950 Order Created by : Estefani Sanabria RD Ferritin levels below 10 ng/mL have been reported as indicative of iron deficiency anemia. Performed By: #### L AB17, [id number], LAB68, LAB69, LAB67, LAB18 #### Coo: GINO FLANAGAN ([id number]) [facility] (SWRLAB) [address] [place] [address] Ferritinon 05-24-2024 Ferritin [Mass/Vol] 313 ng/mL High 5 - 204 ng/mL [facility] Ferritin [Mass/Vol]on 2024 Interpretation and review of laboratory results Abnormal [facility] Ferritin levels below 10 ng/mL have been reported as indicative of iron deficiency anemia. [facility] Office Visiton 05-18-2024 Follow-up visit [id number] Sloane Rinaldi 1950 F Date Provider Department Center 05/18/2024 [id number] ELDER [facility] B[facility] SURG None Family History Problem Relation Age of Onset Asthma Father Cancer Sister Hypertension Brother Heart disease Brother Diabetes Brother Obesity Brother Diabetes Paternal Grandmother Vision loss Paternal Grandmother Family Status - Relation Status Age at Mother Father Sister Alive Brother Alive Paternal Grandmother Level of Service:98961 [place] OFFICE/OUTPATIENT ESTABLISHED LOW MDM 20 MIN Reason for Visit and Comments: Bariatrics Post Op Follow-up [884] - 12M Normal [facility] Progress Noteon 05-18-2024 Progress Note MBS - 12 MONTH FOLLOW UP 05/18/24 PATIENT: Sloane Rinaldi DATE OF : 1950 ---- HISTORY OF PRESENT ILLNESS Chief Complaint: 12 month follow-up status post SLEEVE GASTRECTOMY - aka SG Sloane Rinaldi is a 73 y.o. female who presents to the bariatric care center today for their 12 month evaluation following bariatric surgery with Dr. Nobles. The total weight lost is 70.2 pounds for a 45 % EWL. Overall, the patient is satisfied with the weight loss and health benefits related to the bariatric intervention. Dietary compliance concerns: No Exercise and activity concerns: No Compliance and phychologic concerns: No Dysphagia and eating concerns: No Excessive skin concerns: No The patient is feeling well and denies any major complaints or GI symptoms. The dietary regimen and exercise activities are going well. The patient is compliant with protein intake and vitamin/trace element supplementation. Labs were Completed Laboratory results were normal Review of Symptoms Constitutional: negative for chills, fevers, night sweats, and weight loss Eyes: negative Ears, nose, mouth, throat, and face: negative Respiratory: negative for cough, dyspnea on exertion, hemoptysis, and sputum Cardiovascular: negative for chest pain, chest pressure/discomfort , dyspnea, irregular heart beat, palpitations, and syncope Integument/breasts: negative for dry skin and rash Gastrointestinal: negative for abdominal pain, constipation, diarrhea, dysphagia, melena, reflux symptoms, and vomiting Genitourinary:negat aston for dysuria, hematuria, and urinary incontinence Musculoskeletal:neg ative for back pain and myalgias Neurological: negative for dizziness, paresthesia, seizures, and weakness Behavioral/Psych: negative for anxiety, irritability, and sleep disturbance Hematologic/lymphat ic: negative for bleeding, easy bruising, lymphadenopathy, and petechiae Endocrine: negative for temperature intolerance Allergic/Immunologi c: negative for anaphylaxis and hay fever PAST HISTORIES Past Medical History: Diagnosis Date Anxiety 2014 Asthma Back pain COVID-19 vaccine series not completed 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 Elder TIBIA FRACTURE SURGERY Right plate and 7 srews Family History Problem Relation Name Age of Onset Asthma Father Frandy Melgoza Cancer Sister Eliana Hypertension Brother Jose Heart disease Brother Jose Diabetes Brother Jose Obesity Brother Jose Diabetes Paternal Grandmother Theresa Abad Vision loss Paternal Grandmother Theresa Abad Allergies Allergen Reactions Sulfa Antibiotics Hives Sulfamethoxazole-Tr imethoprim Hives PHYSICAL EXAM BP 130/82 Pulse 92 Temp 36.2 ?C (97.2 ?F) Resp 17 Ht 5' 1.25 (1.556 m) Wt 193 lb 6.4 oz (87.7 kg) Comment: BCC BMI 36.24 kg/m? General: This patient is awake, alert, and oriented, with normal affect and is in no apparent distress. Cardiac: Regular rate and rhythm without evidence of murmur. Respiratory: Clear to auscultation bilaterally with normal effort. Abdomen: Obese, soft, non-tender, non-distended without masses/ No evidence of abdominal hernia / Incisions consistent with previous surgeries. Head and Neck: Obese, normocephalic and atraumatic/soft and supple, no lymphadenopathy or obvious bruits. No thyroidmegaly. Extremities: No cyanosis, clubbing or edema/ No calf tenderness/No restrictions of movement, is ambulatory without assistance. Neurological: Intact x 4 extremities, normal sensation, no focal deficits notes. Skin: Skin cool, warm and dry. No rashes or lesions noted. Rectal: Deferred LABORATORY STUDIES AND IMAGING Laboratory Studies: No results for input(s): NA, K, CL, CO2, BUN, CREATININE, GLUCOSE, CALCIUM in the last 72 hours. No results for input(s): WBC, RBC, HGB, HCT, MCV, MCH, MCHC, RDW, PLT, MPV in the last 72 hours. No results for input(s): ALKPHOS, ALT, AST, PROT, BILITOT, BILIDIR, LIPASE in the last 72 hours. No lab exists for component: LABALBU ASSESSMENT 12 months status post SLEEVE GASTRECTOMY - aka SG Visit Diagnoses: 1. History of sleeve gastrectomy 2. Deficiency of other specified B group vitamins 3. Deficiency of multiple nutrient elements 4. Class 2 severe obesity due to excess calories with serious comorbidity and body mass index (BMI) of 35.0 to 35.9 in adult (HCC) 5. Seconda (more content not included)... Normal [facility] Progress Note [facility] > 6 MONTH POST-OPERATIVE DIETITIAN VISIT Date: 05/18/24 Patient's weight decreased by: 70.2 lbs Patient does consume 5-6 small meals daily Patient?s portions are adequate for current diet: ?-1 cup Protein requirements discussed- currently consuming 55-60 grams protein daily. Current protein sources: peñaloza, egg, cheese, protein drink, chicken Recommendations: Increase protein at meals to hit 65g/day Fluid requirements discussed. Current Fluid Intake: >64oz Patient does drink sugar-free, caffeine-free and carbonation-free fluids only. Patient does wait 30 minutes before and after meals to drink Exercise activities discussed. Patient does currently exercise. She was reminded that regular exercise is critical part of a successful outcome following weight loss surgery. She walks for 15 minutes a day currently. Strongly encouraged that pt start light weightlifting and chair exercises to increase HDL cholesterol, strengthen her bones and continue weight loss. Behavioral/Emotiona l changes reviewed. Patient does feel comfortable with changes in eating behaviors and associated emotional changes. She was reminded that psychological counseling is available through the [facility] post-operatively. Recent Nutrient Concerns and Vitamin Supplementation Changes: none Notes/Comments: Pt is doing well and very happy with her weight loss. She plans to lose another 30 lbs and is on the right track. Visit completed by: Nanette Schrader RD [facility] 36on 05-04-2024 36 Great, thanks! Normal [facility] 36on 04-30-2024 36 Pt noted is has had recent abscess in tooth needing extraction, infection likely contributing to elevated ferritin level. Pt noted is currently taking 500 mg of calcium once daily, RD recommending decreasing to every other day at this time for improvement. Pt noted is drinking ~64 fl oz most days. Inquiring into elevated vitamin b12 level of 1345, RD noted no change in interventions warranted with slightly elevated b12 d/t not upper limit. RD encouraged maintaining adequate hydration. Pending recheck on calcium and ferritin in 1 month for improvement in levels. Routed to NATUROPATHIC PHYSICIAN. [facility] Neurology Visit Reporton Neurology Visit Report [facility] [address], [address] [place] [address] OFFICE VISIT Date of Service: 04/30/24 MR#: [id number] Acct: [id number] Name: SLOANE RINALDI Rep #: [id number] : 1950 Provider: Dr. Galo cruz MD Age/Sex: 73/F [place] [facility] [place]: Signed HPI HPI Chief Complaint: Establish Care Details: The patient is a 73-year-old right handed female who presents to [facility]. She was referred 03/16/2024 by [facility] for Acute Ischemic Stroke/TIA. Hospital did CT brain (radiology interpretation: No acute findings in the head/brain. Minimal chronic parenchymal changes.), CTA head/neck (radiology interpretation: No acute findings in the arteries of the head and neck. No large vessel occlusion. Mild plaque of the bilateral cervical ICAs, no significant stenosis. Mild calcifications of intracranial ICAs, no significant stenosis.), and MRI brain (radiology interpretation: 1. ???3 tiny foci of increased signal intensity on diffusion-weighted images in the right subcortical white matter and 2 separate adjacent right superior lateral frontal lobe steward matter foci. These measure 3-5 mm. They are too small to confirm to be foci of acute restricted diffusion on ADC map but they are possibly due to embolic phenomenon. 2. Correlate with any left-sided weakness. 3. ???Otherwise, minimal chronic white matter changes and mild volume loss). She was discharged with new RX's: atorvastatin 40mg QHS, aspirin 81mg QD, and plavix 75mg QD for 21 days. This patient presents for follow-up evaluation of stroke. Patient had been in ED at [facility]. A consulting [facility] teleneurology group reviewed her presentation. Conclusion was that she had suffered a stroke. This is confirmed by MRI. Patient was placed on aspirin 81 mg p.o. daily, Plavix 75 mg p.o. daily for 3 weeks and statin (atorvastatin 40 mg tablet p.o. nightly number of 30 tablets on discharge note. Patient's current medical record does not indicate continued use of atorvastatin. The prescription at discharge was without refill. I did review her discharge records in detail. Patient confirms the date and the chart is accurate. executive officer had been performed and no arrhythmias were detected. Cardiac echo had been performed which was negative for PFO or source of emboli. It should be noted patient has had a gastric sleeve performed for bariatric surgery. She is lost 70 pounds post surgery. Also patient had prior melanoma on arm which apparently is not a current problem. ROS General Patient states that she is in good health and feels fine and has no deficits. HEENT: No vision complaints no headaches no difficulty with hearing no difficulty swallowing Respiratory without shortness of breath or hemoptysis Cardiac without palpitations or chest pain Abdomen without abdominal pain vomiting blood passing blood in stool without hematuria Extremities no complaints of weakness or numbness Skin intact and without lesions Exam Const Other: Blood pressure 132/84 pulse 97 respiration 16 temperature 98.0 O2 sats stat saturation 97%. General appearance that well-developed well-nourished female. BMI 34.7%. Respiratory clear to auscultation Cardiac regular rhythm no murmur Abdomen obese Extremities without evidence of trauma Skin intact on visualized areas. Neurologic examination: Mental status: Awake alert oriented x 3. Recall was 3/3. Language show normal radiology receptionist expression repetition naming. Cognition appears intact. CN II-XII: Pupils equal round react to light. About 3 mm in size. Visual lockhart full to confrontation. Extraocular muscles intact. No ptosis no nystagmus. Motor and sensory function face is intact. No hint of left facial palsy. Hearing swallowing phonation tongue all appear normal. Motor examination no focal weakness no drift. Left-sided weakness not present. Cerebellar testing showed she had a very minor subtle tremor on finger-nose maneuvers. Otherwise no tremors or ataxia. Reflexes 1+ at biceps 1+ at knees. Sensory exam intact to tactile and vibratory sense. Station gait is normal. Romberg negative. Assessment and Plan Assessment and Plan (1) Brain TIA: Status: Acute Comment: Patient is listed as having brain TIA in her medical record. It is possible that she had 3 very tiny embolic strokes. She has no neurologic residual at all. Patient is currently on aspirin 81 mg p.o. daily. Plavix 75 mg for 3 weeks has been completed and is now discontinued. Patient had been on atorvastatin 40 mg p.o. daily but she is not now on it and it may have been discontinued on the basis of not having a renewed prescription for atorvastatin. I did review her lipid profile. It does appear to be fairly good and may have been a result of having had a gastric sleeve performed with significant weight loss r (more content not included)... Normal [facility] 36on 04-28-2024 36 DOS 05/14/23 LSG TB Last OV: 11/14/2023 6M POP Next OV: 05/18/2024 12M POP Labs 04/24/2024 Ferritin 408 elevated Calcium 10.3 elevated Please see MyChart for pt and RD encounter RD reaching out to review abnormal lab values. PT noted with elevated ferritin, RD assessing for ongoing/chronic inflammatory conditions and referring to PCP for management. Noted with elevated calcium level, RD inquiring into fluid intake at this time. Pt response pending. Normal [employer] [facility] 25-hydroxyvitamin D3 [Mass/V ol]on 04-24-2024 Interpretation and review of laboratory results Normal [employer] [place] Target concentration: 30 - 40 ng/mL; toxicity seen at concentrations >100 ng/mL Therapy is based on measurement of Total 25-OHD with the following classification levels: Less than 20 ng/mL: Indicative of Vit D deficiency 20-30 ng/mL: Suggests Vit D insufficiency Optimal: Greater than or equal to 30 ng/mL Test performed by [employer] Immunoassay, measuring Total Vitamin D, not individual fractions. [facility] CBC (HEMOGRAM)on 04-24-2024 Erythrocyte distribution width (RBC) [Ratio] 12.5 % Normal 11.5-15.0 [facility] Comment on above: Order Comment: These orders are set for an approximate date - they can be drawn up to 3 months prior to the Expected Date on this Req. Please send results to: Bryan Collado [facility] [place] [address] [facility] [address] - [phone] And if not done at a [place] [facility], please send to: [address], [address] Patient Name: Sloane Rinaldi 1950 Order Created by : Sherice Caruso Performed By: #### L AB17, [id number], LAB68, LAB69, LAB67, LAB18 #### Coo: GINO FLANAGAN ([id number]) [facility] ([facility]) [address] [place] [address] Hematocrit (Bld) [Volume fraction] 41.4 % Normal 35.0-47.0 [facility] Comment on above: Order Comment: These orders are set for an approximate date - they can be drawn up to 3 months prior to the Expected Date on this Req. Please send results to: Bryan Lizwn Darshan [address] [facility] [address] - [phone] And if not done at a [place] [facility], please send to: [address], [address] Patient Name: Sloane Rinaldi 1950 Order Created by : Sherice Caruso Performed By: #### L AB17, [id number], LAB68, LAB69, LAB67, LAB18 #### Coo: GINO FLANAGAN ([id number]) [facility] ([facility]) [address] [place] [address] Hemoglobin (Bld) [Mass/Vol] 14.0 g/dL Normal 11.7-16.0 [facility] Comment on above: Order Comment: These orders are set for an approximate date - they can be drawn up to 3 months prior to the Expected Date on this Req. Please send results to: Bryan Barboza [address] [facility] [address] - [phone] And if not done at a [place] [facility], please send to: [facility] - [address] [place] [address], [address] Patient Name: Sloane Ruelas 1950 Order Created by : Sherice Caruso Performed By: #### L AB17, [id number], LAB68, LAB69, LAB67, LAB18 #### Coo: GINO FLANAGAN ([id number]) [facility] LYNNETTERAULITO HAUSER (RLAB) [address] [place] [address] MCH (RBC) [Entitic mass] 31.2 pg Normal 26.0-34.0 [facility] Comment on above: Order Comment: These orders are set for an approximate date - they can be drawn up to 3 months prior to the Expected Date on this Req. Please send results to: Bryan Barboza [address] [facility] D[place] [address] [facility] [address] - [phone] And if not done at a [place] [facility], please send to: [address], [address] Patient Name: Sloane Ruelas 1950 Order Created by : Sherice Caruso Performed By: #### L AB17, [id number], LAB68, LAB69, LAB67, LAB18 #### Coo: GINO FLANAGAN ([id number]) [facility] (SWRLAB) [address] [place] [address] MCHC 33.8 % Normal 30.5-36.0 [facility] Comment on above: Order Comment: These orders are set for an approximate date - they can be drawn up to 3 months prior to the Expected Date on this Req. Please send results to: Bryan Barboza [address] [place] [address] [facility] [id number] - [phone] And if not done at a [place] [facility], please send to: [facility] - [address] [place] [address], [address], [address] Patient Name: Sloane Rinaldi - 1950 Order Created by : Sherice Caruso Performed By: #### L AB17, [id number], LAB68, LAB69, LAB67, LAB18 #### Coo: GINO FLANAGAN ([id number]) [facility] (SWRLAB) [address] [place] [address] MCV (RBC) [Entitic vol] 92.2 fL Normal 77.0-99.0 S [facility] Comment on above: Order Comment: These orders are set for an approximate date - they can be drawn up to 3 months prior to the Expected Date on this Req. Please send results to: Bryan Ruelas [facility] Frank [facility] [address] [facility] [id number] - [phone] And if not done at a [place] [facility], please send to: [facility] - [address] [place] [address], [address] [facility], [address] Patient Name: Sloane Rinaldi - 1950 Order Created by : Sherice Caruso Performed By: #### L AB17, [id number], LAB68, LAB69, LAB67, LAB18 #### Coo: GINO FLANAGAN ([id number]) [facility] RIT[facility] (SWRLAB) [address] Platelet mean volume (Bld) [Entitic vol] 9.3 fL Normal 9.0-12.7 [facility] Comment on above: Order Comment: These orders are set for an approximate date - they can be drawn up to 3 months prior to the Expected Date on this Req. Please send results to: Bryan Barboza [facility] [address] [facility] [address] - [phone] And if not done at a [place] [facility], please send to: [facility] - [address] [place] [address], [address] [facility], [address] Patient Name: Sloane Rinaldi - 1950 Order Created by : Sherice Caruso Result Comment: MPV is a calculated measurement using platelet volume ratio Performed By: #### L AB17, [id number], LAB68, LAB69, LAB67, LAB18 #### Coo: GINO FLANAGAN ([id number]) [facility] (SWRLAB) [address] [place] [address] [place] Platelets (Bld) [#/Vol] 244 10*3/uL Normal 140-440 [facility] Comment on above: Order Comment: These orders are set for an approximate date - they can be drawn up to 3 months prior to the Expected Date on this Req. Please send results to: Bryan Barboza Shannan Marie [facility] [address] [facility] [id number] - [phone] And if not done at a [place] [facility], please send to: [facility] - [address] [place] [address], [address] [facility], [address] Patient Name: Sloane Rinaldi - 1950 Order Created by : Sherice Caruso Performed By: #### L AB17, [id number], LAB68, LAB69, LAB67, LAB18 #### Coo: GINO FLANAGAN ([id number]) [facility] LYNNETTE RITTMAN (SWRLAB) [address] [place] [address] RBC (Bld) [#/Vol] 4.49 10*6/uL Normal 3.80-5.20 [facility] Comment on above: Order Comment: These orders are set for an approximate date - they can be drawn up to 3 months prior to the Expected Date on this Req. Please send results to: Bryan Barboza [address] [facility] [place] [address] [facility] [address] - [phone] And if not done at a [place] [facility], please send to: [facility] - [address] [place] [address], [address] [facility], [address] Patient Name: Sloane Ruelas 1950 Order Created by : Sherice Caruso Performed By: #### L AB17, [id number], LAB68, LAB69, LAB67, LAB18 #### Coo: GINO FLANAGAN ([id number]) [facility] ([facility]) [address] [place] [address] WBC (Bld) [#/Vol] 5.6 10*3/uL Normal 3.6-10.7 [facility] Comment on above: Order Comment: These orders are set for an approximate date - they can be drawn up to 3 months prior to the Expected Date on this Req. Please send results to: Bryan Barboza [facility] [place] [facility] [place] [address] [facility] [address] - [phone] And if not done at a [place] [facility], please send to: [facility] - [address] [place] [address], [address] [facility], [address] Patient Name: Sloane Ruelas 1950 Order Created by : Sherice Caruso Performed By: #### L AB17, [id number], LAB68, LAB69, LAB67, LAB18 #### Coo: GINO FLANAGAN ([id number]) [facility] LYNNETTE RITTMAN (SWRLAB) [address] [place] [address] CBC panel Auto (Bld)Ordered By: Estefani Cohen on 04-24-2024 Erythrocyte distribution width (RBC) [Ratio] 12.5 % 11.5 - 15.0 % [facility] Hematocrit (Bld) [Volume fraction] 41.4 % 35.0 - 47.0 % [facility] Hemoglobin (Bld) [Mass/Vol] 14 g/dL 11.7 - 16.0 g/dL [facility] Interpretation and review of laboratory results Normal [facility] MCH (RBC) [Entitic mass] 31.2 pg 26.0 - 34.0 pg [facility] MCHC (RBC) [Mass/Vol] 33.8 % 30.5 - 36.0 % [facility] MCV (RBC) [Entitic vol] 92.2 fL 77.0 - 99.0 fL [facility] Platelet mean volume (Bld) [Entitic vol] 9.3 fL 9.0 - 12.7 fL [facility] Comment on above: MPV is a calculated measurement using platelet volume ratio Platelets (Bld) [#/Vol] 244 10*3/uL 140 - 440 10*3/uL [facility] RBC (Bld) [#/Vol] 4.49 10*6/uL 3.80 - 5.2 0 10*6/uL [facility] WBC (Bld) [#/Vol] 5.6 10*3/uL 3.6 - 10.7 10*3/uL [facility] COMPREHENSIVE METABOLIC PANE Dav 04-24-2024 Albumin [Mass/Vol] 3.4 g/dL Normal 3.4-4.8 [facility] Comment on above: Order Comment: These orders are set for an approximate date - they can be drawn up to 3 months prior to the Expected Date on this Req. Please send results to: Bryan Barboza - [address] [place] [address] [facility] [address] - [phone] And if not done at a [place] [facility], please send to: [facility] - [address] [place] [address], [address] [facility], [address] Patient Name: Sloane Rinaldi - 1950 Order Created by : Sherice Caruso Performed By: #### L AB17, [id number], LAB68, LAB69, LAB67, LAB18 #### Coo: GINO FLANAGAN ([id number]) [facility] LYNNETTE CLARITATMAN (SWRLAB) [address] [place] [address] ALP [Catalytic activity/Vol] 81 U/L Normal 40-150 [facility] Comment on above: Order Comment: These orders are set for an approximate date - they can be drawn up to 3 months prior to the Expected Date on this Req. Please send results to: Bryan Barboza [address] [facility] [address] - [phone] And if not done at a [place] [facility], please send to: [facility] - [address] [place] [address], [address] Patient Name: Sloane Ruelas 1950 Order Created by : Sherice Caruso Performed By: #### L AB17, [id number], LAB68, LAB69, LAB67, LAB18 #### Coo: GINO FLANAGAN ([id number]) [facility] CLARITATMAN (SWRLAB) [address] [place] [address] ALT [Catalytic activity/Vol] 17 U/L Normal <30 [facility] Comment on above: Order Comment: These orders are set for an approximate date - they can be drawn up to 3 months prior to the Expected Date on this Req. Please send results to: Bryan Barboza [facility] Frank [facility] [address] [facility] [address] - [phone] And if not done at a [place] [facility], please send to: [facility] - [address] [place] [address], [address] Patient Name: Sloane Ruelas 1950 Order Created by : Sherice Caruso Performed By: #### L AB17, [id number], LAB68, LAB69, LAB67, LAB18 #### Coo: GINO FLANAGAN ([id number]) [facility] CHURCH RITTMAN (SWRLAB) [address] [place] [address] Anion gap [Moles/Vol] 4 mmol/L Normal 3-13 [facility] Comment on above: Order Comment: These orders are set for an approximate date - they can be drawn up to 3 months prior to the Expected Date on this Req. Please send results to: Bryan Barboza [facility] Frank [facility] [place] [address] [facility] [id number] - [phone] And if not done at a [place] [facility], please send to: [place] [id number] Patient Name: Sloane Ruelas 1950 Order Created by : Sherice Caruso Performed By: #### L AB17, [id number], LAB68, LAB69, LAB67, LAB18 #### Coo: GINO FLANAGAN ([id number]) [facility] [place] (SWRLAB) [address] [place] [address] AST [Catalytic activity/Vol] 20 U/L Normal <34 [facility] Comment on above: Order Comment: These orders are set for an approximate date - they can be drawn up to 3 months prior to the Expected Date on this Req. Please send results to: Bryan Marie [facility] [address] [facility] [phone] - [phone] And if not done at a [place] [facility], please send to: [address], [address], [address] Patient Name: Sloane Rinaldi - 1950 Order Created by : Sherice Caruso Performed By: #### L AB17, [id number], LAB68, LAB69, LAB67, LAB18 #### Coo: GINO FLANAGAN ([id number]) [facility] [place] (SWRLAB) [address] [place], [place] [address] [place] Bilirubin [Mass/Vol] 0.8 mg/dL Normal <1.2 [facility] Comment on above: Order Comment: These orders are set for an approximate date - they can be drawn up to 3 months prior to the Expected Date on this Req. Please send results to: Bryan Barboza [address] [facility] [phone] - [phone] And if not done at a [place] [facility], please send to: [place] [id number] Patient Name: Sloane Ruelas 1950 Order Created by : Sherice Caruso Performed By: #### L AB17, [id number], LAB68, LAB69, LAB67, LAB18 #### Coo: GINO FLANAGAN ([id number]) [facility] (SWRLAB) [address] [place] [address] Calcium [Mass/Vol] 10.3 mg/dL High 8.8-10.0 [facility] Comment on above: Order Comment: These orders are set for an approximate date - they can be drawn up to 3 months prior to the Expected Date on this Req. Please send results to: Bryan Barboza [address] [facility] [phone] - [phone] And if not done at a [place] [facility], please send to: [address], [address] Patient Name: Sloane Rinaldi - 1950 Order Created by : Sherice Caruso Performed By: #### L AB17, [id number], LAB68, LAB69, LAB67, LAB18 #### Coo: GINO LFANAGAN ([id number]) [facility] [place] (SWRLAB) [address] [place] [address] Chloride [Moles/Vol] 107 mmol/L Normal 98-107 [facility] Comment on above: Order Comment: These orders are set for an approximate date - they can be drawn up to 3 months prior to the Expected Date on this Req. Please send results to: Bryan Barboza Jessenia Marie Eden [facility] [place] [address] [facility] [phone] - [phone] And if not done at a [place] [facility], please send to: [facility] - [address] [place] [address], [address], [address] Patient Name: Sloane Ruelas 1950 Order Created by : Sherice Caruso Performed By: #### L AB17, [id number], LAB68, LAB69, LAB67, LAB18 #### Coo: GINO FLANAGAN ([id number]) [facility] [employer]TMAN (SWRLAB) [address] [place] [address] CO2 [Moles/Vol] 31 mmol/L Normal 23-31 [facility] Comment on above: Order Comment: These orders are set for an approximate date - they can be drawn up to 3 months prior to the Expected Date on this Req. Please send results to: Bryan Barboza Jessenia Marie Eden [facility] [place] [address] [facility] [phone] - [phone] And if not done at a [place] [facility], please send to: [address], [address], [address] Patient Name: Sloane Rinaldi - 1950 Order Created by : Sherice Caruso Performed By: #### L AB17, [id number], LAB68, LAB69, LAB67, LAB18 #### Coo: GINO FLANAGAN ([id number]) [facility] LYNNETTE RITTMAN (SWRLAB) [address] [place] [address] Creatinine [Mass/Vol] 0.86 mg/dL Normal 0.57-1.11 [facility] Comment on above: Order Comment: These orders are set for an approximate date - they can be drawn up to 3 months prior to the Expected Date on this Req. Please send results to: Bryan Barboza - [address] [facility] [place] [address] [facility] [phone] - [phone] And if not done at a [place] [facility], please send to: [address], [address] Patient Name: Sloane Rinaldi - 1950 Order Created by : Sherice Caruso Performed By: #### L AB17, [id number], LAB68, LAB69, LAB67, LAB18 #### Coo: GINO FLANAGAN ([id number]) [facility] [employer] (InnolumeRLAB) [address] [place] [address] GLOMERULAR FILTRATION RATE ML/MIN/1.73 SQ M.PREDICTED 71.9 mL/min/1.73m*2 Normal >60.0 [facility] Comment on above: Order Comment: These orders are set for an approximate date - they can be drawn up to 3 months prior to the Expected Date on this Req. Please send results to: Bryan Barboza Jessenia [address] [facility] [place] [address] [facility] [phone] - [phone] And if not done at a [place] [facility], please send to: [facility] - [address] [place] [address], [address] Patient Name: Sloane Rinaldi - 1950 Order Created by : Sherice Caruso Result Comment: Calc ulation based on the Chronic Kidney Disease Epidemiology Collaboration (CKD-EPI) equation refit without adjustment for race Performed By: #### L AB17, [id number], LAB68, LAB69, LAB67, LAB18 #### Coo: GINO FLANAGAN ([id number]) [facility]ENTERPavilion Data [place]TM[place] (SWRLAB) [address] [place] [address] Glucose [Mass/Vol] 88 mg/dL Normal 82-115 [facility] Comment on above: Order Comment: These orders are set for an approximate date - they can be drawn up to 3 months prior to the Expected Date on this Req. Please send results to: Bryan Barboza [address] [facility] [address] [facility] [phone] - [phone] And if not done at a [place] [facility], please send to: [facility] - [address] [place] [address], [address] [facility], [address] Patient Name: Sloane Ruelas 1950 Order Created by : Sherice Caruso Performed By: #### L AB17, [id number], LAB68, LAB69, LAB67, LAB18 #### Coo: GINO FLANAGAN ([id number]) [facility]TEActurisAN ([employer]LAB) [address] [place] [address] Potassium [Moles/Vol] 4.6 mmol/L Normal 3.5-5.1 [facility] Comment on above: Order Comment: These orders are set for an approximate date - they can be drawn up to 3 months prior to the Expected Date on this Req. Please send results to: Bryan Barboza [place] [address] [facility] [address] [facility] [phone] - [phone] And if not done at a [place] [facility], please send to: [facility] - [address] [place] [address], [address] [facility], [address] Patient Name: Sloane Rinaldi - 1950 Order Created by : Sherice Caruso Result Comment: [facility] potassium values may be up to 0.5 mmol/L lower than serum values. Performed By: #### L AB17, [id number], LAB68, LAB69, LAB67, LAB18 #### Coo: GINO FLANAGAN ([id number]) [facility] LYNNETTE RITTMAN (SWRLAB) [address] [place] [address] Protein [Mass/Vol] 7.1 g/dL Normal 6.4-8.3 [facility] Comment on above: Order Comment: These orders are set for an approximate date - they can be drawn up to 3 months prior to the Expected Date on this Req. Please send results to: Bryan Ruelas [address] [facility] [address] [facility] [address] - [phone] And if not done at a [place] [facility], please send to: [facility] - [address] [place] [address], [address] Patient Name: Sloane Ruelas 1950 Order Created by : Sherice Caruso Performed By: #### L AB17, [id number], LAB68, LAB69, LAB67, LAB18 #### Coo: GINO FLANAGAN ([id number]) [facility] [employer]TMAN ([employer]) [address] [place] [address] Sodium [Moles/Vol] 142 mmol/L Normal 136-145 [facility] Comment on above: Order Comment: These orders are set for an approximate date - they can be drawn up to 3 months prior to the Expected Date on this Req. Please send results to: Bryan Ruelas [facility] [address] [facility] [place] [address] [facility] [address] - [phone] And if not done at a [place] [facility], please send to: [address], [address] Patient Name: Sloane Rinaldi - 1950 Order Created by : Sherice Caruso Performed By: #### L AB17, [id number], LAB68, LAB69, LAB67, LAB18 #### Coo: GINO FLANAGAN ([id number]) [facility] [employer]TMAN (SWRLAB) [address] [place] [address] Urea nitrogen [Mass/Vol] 16 mg/dL Normal 9-23 [facility] Comment on above: Order Comment: These orders are set for an approximate date - they can be drawn up to 3 months prior to the Expected Date on this Req. Please send results to: Bryan [address] [facility] [address] - [phone] And if not done at a [place] [facility], please send to: [facility] [place] - [address] [place] [address], [address] [place], [id number] Patient Name: Sloane Rinaldi - 1950 Order Created by : Sherice Caruso Performed By: #### L AB17, NPS761, LAB68, LAB69, LAB67, LAB18 #### Coo: GINO FLANAGAN ([id number]) [facility] (SWRLAB) [address] [place] [address] Comprehensive metabolic 1998 panelon 04-24-2024 Albumin [Mass/Vol] 3.4 g/dL 3.4 - 4.8 g/dL [facility] ALP [Catalytic activity/Vol] 81 U/L 40 - 150 U/L [facility] ALT [Catalytic activity/Vol] 17 U/L NINF - 30 U/L [facility] Anion gap [Moles/Vol] 4 mmol/L 3 - 13 mmol/L [facility] AST [Catalytic activity/Vol] 20 U/L [facility] - 34 U/L [facility] Bilirubin [Mass/Vol] 0.8 mg/dL NINF - 1.2 mg/dL [facility] Calcium [Mass/Vol] 10.3 mg/dL High 8.8 - 10. 0 mg/dL [facility] Chloride [Moles/Vol] 107 mmol/L 98 - 10 7 mmol/L [facility] CO2 [Moles/Vol] 31 mmol/L 23 - 31 mmol/L [facility] Creatinine [Mass/Vol] 0.86 mg/dL 0.57 - 1.11 mg/dL [facility] GFR/1.73 sq M.predicted (S/P/Bld) [Vol rate/Area] 71.9 mL/min - PINF [facility] Comment on above: Calculation based on the Chronic Kidney Disease Epidemiology Collaboration (CKD-EPI) equation refit without adjustment for race Glucose [Mass/Vol] 88 mg/dL 82 - 115 mg/dL [facility] Potassium [Moles/Vol] 4.6 mmol/L 3.5 - 5.1 mmol/L [facility] Comment on above: Plasma potassium dre ues may be up to 0.5 mmol/L lower than serum values. Protein [Mass/Vol] 7.1 g/dL 6.4 - 8.3 g/dL [facility] Sodium [Moles/Vol] 142 mmol/L 136 - 145 mmol/L [facility] Urea nitrogen [Mass/Vol] 16 mg/dL 9 - 23 mg/dL [facility] FERRITINon 04-24-2024 Ferritin [Mass/Vol] 408 ng/mL High 5-204 [facility] Comment on above: Result Comment: JULIANE R COMMENTS: These orders are set for an approximate date - they can be drawn up to 3 months prior to the Expected Date on this Req. Please send results to: Bryan Collado [facility] [place] [address] [facility] [address] - [phone] And if not done at a [place] [facility], please send to: [address], [address] Patient Name: Sloane Rinaldi - 1950 Order Created by : Sherice Caruso Ferritin levels below 10 ng/mL have been reported as indicative of iron deficiency anemia. Performed By: #### L AB17, [id number], LAB68, LAB69, LAB67, LAB18 #### Coo: GINO FLANAGAN ([id number]) [facility] (SWRLAB) [address] [place] [address] FOLATEon 04-24-2024 FOLATE RESULT 17.5 ng/mL Normal 7.0-31.4 [facility] Comment on above: Order Comment: These orders are set for an approximate date - they can be drawn up to 3 months prior to the Expected Date on this Req. Please send results to: Bryan Lizwn [facility] [place] [address] [facility] [phone] - [phone] And if not done at a [place] [facility], please send to: [address], [address] Patient Name: Sloane Rinaldi - 1950 Order Created by : Sherice Caruso Performed By: #### L AB17, [id number], LAB68, LAB69, LAB67, LAB18 #### Coo: GINO FLANAGAN ([id number]) [facility] [employer]AN (SWRLAB) [address] [place] [address] Ferritinon 04-24-2024 Ferritin [Mass/Vol] 408 ng/mL High 5 - 204 ng/mL [facility] Ferritin [Mass/Vol]on 2024 Ferritin levels below 10 ng/mL have been reported as indicative of iron deficiency anemia. [facility] Folateon 04-24-2024 Folate [Mass/Vol] 17.5 ng/mL 7.0 - 31.4 ng/mL [facility] Folate [Mass/Vol]on 04-24-19 Interpretation and review of laboratory results Normal [facility] IRONon 04-24-2024 IRON, TOTAL 107 ug/dL Normal 50-170 [facility] Comment on above: Order Comment: These orders are set for an approximate date - they can be drawn up to 3 months prior to the Expected Date on this Req. Please send results to: Bryan Barboza - [address] [facility] [address] - [phone] And if not done at a [place] [facility], please send to: [facility] [place] - [address] [place] [address], [address] - [facility], [address] Patient Name: Solane Rinaldi - 1950 Order Created by : Sherice Caruso Performed By: #### L AB17, [id number], LAB68, LAB69, LAB67, LAB18 #### Coo: GINO FLANAGAN ([id number]) [facility] [employer]TMAN (SWRLAB) [address] [place] [address] Iron and Iron binding capaci ty panelon 04-24-2024 Interpretation and review of laboratory results Normal [facility] Iron [Mass/Vol] 107 ug/dL 50 - 170 ug/dL [facility] LIPID PANELon 04-24-2024 Cholesterol [Mass/Vol] 213 mg/dL High <200 [facility] Comment on above: Order Comment: These orders are set for an approximate date - they can be drawn up to 3 months prior to the Expected Date on this Req. Please send results to: Bryan Barboza [address] [facility] [address] [facility] [phone] - [phone] And if not done at a [place] [facility], please send to: [facility] - [address] [place] [address], [address] Patient Name: Sloane Ruelas 1950 Order Created by : Sherice Caruso Performed By: #### L AB17, [id number], LAB68, LAB69, LAB67, LAB18 #### Coo: GINO FLANAGAN ([id number]) [facility] LYNNETTE RITTMAN (InnolumeRLAB) [address] [place] [address] Cholesterol in HDL [Mass/Vol] 47 mg/dL Low >=60 [facility] Comment on above: Order Comment: These orders are set for an approximate date - they can be drawn up to 3 months prior to the Expected Date on this Req. Please send results to: Bryan Barboza [facility] E [facility] [address] [facility] [phone] - [phone] And if not done at a [place] [facility], please send to: [facility] - [address] [place] [address], [address], [address] Patient Name: Sloane Ruelas 1950 Order Created by : Sherice Caruso Performed By: #### L AB17, URM105, LAB68, LAB69, LAB67, LAB18 #### Coo: GINO FLANAGAN ([id number]) [facility] LYNNETTE RITTMAN (SWRLAB) [address] [place] [address] Cholesterol.total/Yaima sterol in HDL [Mass ratio] 5 {ratio} Normal [facility] Comment on above: Order Comment: These orders are set for an approximate date - they can be drawn up to 3 months prior to the Expected Date on this Req. Please send results to: Bryan Barboza [address] [facility] [address] - [phone] And if not done at a [place] [facility], please send to: [address], [address] Patient Name: Sloane Rinaldi - 1950 Order Created by : Sherice Caruso Result Comment: Ref Range: < 3 Low Risk for CHD 3-6 Mod Risk for CHD > 6 High Risk for CHD Performed By: #### L AB17, [id number], LAB68, LAB69, LAB67, LAB18 #### Coo: GINO FLANAGAN ([id number]) [facility] L[facility]NNETTE [employer]TMAN (SWRLAB) [address] [place] [address] LOW DENSITY LIPOPROTEIN 139 mg/dL High 0-<100 [facility] Comment on above: Order Comment: These orders are set for an approximate date - they can be drawn up to 3 months prior to the Expected Date on this Req. Please send results to: Bryan Barboza [facility] Frank [facility] [address] [facility] [address] - [phone] And if not done at a [place] [facility], please send to: [address], [address] Patient Name: Sloane Rinaldi - 1950 Order Created by : Sherice Caruso Performed By: #### L AB17, [id number], LAB68, LAB69, LAB67, LAB18 #### Coo: GINO FLANAGAN ([id number]) [facility] LYNNETTE RITTMAN (SWRLAB) [address] [place] [address] [place] NON-HDL CHOLESTEROL, CALCULATED 166 High <130 [facility] Comment on above: Order Comment: These orders are set for an approximate date - they can be drawn up to 3 months prior to the Expected Date on this Req. Please send results to: Bryan Barboza [place] [address] [facility] [address] [facility] [phone] - [phone] And if not done at a [place] [facility], please send to: [facility] - [address] [place] [address], [address] Patient Name: Sloane Ruelas 1950 Order Created by : Sherice Caruso Performed By: #### L AB17, [id number], LAB68, LAB69, LAB67, LAB18 #### Coo: GINO FLANAGAN ([id number]) [facility] RITTMAN (SWRLAB) [address] [place] [address] Triglyceride [Mass/Vol] 134 mg/dL Normal <150 [facility] Comment on above: Order Comment: These orders are set for an approximate date - they can be drawn up to 3 months prior to the Expected Date on this Req. Please send results to: Bryan Barboza Jessenia Shannan [address] [facility] [place] [address] [facility] [phone] - [phone] And if not done at a [place] [facility], please send to: [facility] - [address] [place] [address], [address] Patient Name: Sloane Rinaldi - 1950 Order Created by : Sherice Caruso Performed By: #### L AB17, [id number], LAB68, LAB69, LAB67, LAB18 #### Coo: GINO FLANAGAN ([id number]) [facility] RITTMAN (SWRLAB) [address] [place] [address] VERY LOW DENSITY LIPOPROTEIN, CALCULATED 27 mg/dL Normal <=30 [facility] Comment on above: Order Comment: These orders are set for an approximate date - they can be drawn up to 3 months prior to the Expected Date on this Req. Please send results to: Bryan Collado Darshan [address] [facility] [phone] - [phone] And if not done at a [place] [facility], please send to: [facility] - [address] [place] [address], [address], [address] Patient Name: Sloane Rinaldi - 1950 Order Created by : Sherice Caruso Performed By: #### L AB17, [id number], LAB68, LAB69, LAB67, LAB18 #### Coo: GINO FLANAGAN ([id number]) [facility] (SWRLAB) [address] [place] [address] Lipid 1996 panelon Cholesterol [Mass/Vol] 213 mg/dL High NINF - 200 mg/dL [facility] Cholesterol in HDL [Mass/Vol] 47 mg/dL Low 60 - PINF mg/dL [facility] Cholesterol in LDL [Mass/Vol] 139 mg/dL High 0 - <100 [facility]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 L400.0001 ####[facility] [address] [place], [address] WBC 10-25 SEEN Normal 0-5 [facility] Comment on above: Order Comment: COLLE CTOR TO SPECIFY Performed By: #### M 100.678, L400.0001 ####[facility] [address] [place], [address] BILIRUBIN URINE Negative Normal Negative [facility] Comment on above: Order Comment: COLLE CTOR TO SPECIFY Performed By: #### M 100.678, L400.0001 ####[facility] [address] [place], [address] Clarity (U) Clear Normal Clear [facility] Comment on above: Order Comment: [facility]AMAR CTOR TO SPECIFY Performed By: #### M 100.678, L400.0001 ####[facility] [address] [place], [address] Color (U) Straw Normal Yellow [facility] Comment on above: Order Comment: TAMAR CTOR TO SPECIFY Performed By: #### M 100.678, L400.0001 ####[facility] [address] [place], [address] GLUCOSE, UR Normal Normal Normal [facility] Comment on above: Order Comment: [facility] CTOR TO SPECIFY Performed By: #### M 100.678, L400.0001 ####[facility] [address] [place], [address] KETONE UR 50 mg/dl Abnormal Negative [facility] Comment on above: Order Comment: TAMAR CTOR TO SPECIFY Performed By: #### M 100.678, L400.0001 ####[facility] [address] [place], [address] LEUK ESTERASE 25 /ul Abnormal Negative [facility] Comment on above: Order Comment: [facility] CTOR TO SPECIFY Performed By: #### M 100.678, L400.0001 ####[facility] [address] [place], [address] Nitrite Ql (U) Negative Normal Negative [facility] Comment on above: Order Comment: TAMAR CTOR TO SPECIFY Performed By: #### M 100.678, L400.0001 ####[facility] [address] [place], [address] OCCULT BLOOD-UR Negative Normal Negative [facility] Comment on above: Order Comment: TAMAR CTOR TO SPECIFY Performed By: #### M 100.678, L400.0001 ####[facility] [address] [place], [address] pH UR 6.5 Normal 5.0 - 8.0 [facility] Comment on above: Order Comment: TAMAR CTOR TO SPECIFY Performed By: #### M 100.678, L400.0001 ####[facility] [address] [place], [address] PROT DIPSTX Negative Normal Negative [facility] Comment on above: Order Comment: TAMAR CTOR TO SPECIFY Performed By: #### M 100.678, L400.0001 ####[facility] [address] [place], [address] SP.GR. DIPSTX 1.010 Normal 1.002-1.030 [facility] Comment on above: Order Comment: TAMAR CTOR TO SPECIFY Performed By: #### M 100.678, L400.0001 ####[facility] [address] [place], [address] UROBILI Normal Normal Normal [facility] Comment on above: Order Comment: TAMAR CTOR TO SPECIFY Performed By: #### M 100.678, L400.0001 ####[facility] [address] [place], [address] Mucus Ql (Urine sed) 0 SEEN Normal [facility] Comment on above: Order Comment: TAMAR CTOR TO SPECIFY Performed By: #### M 100.678, L400.0001 ####[facility] [address] [place], [address] RBC 0 SEEN Normal 0-5 [facility] Comment on above: Order Comment: TAMAR CTOR TO SPECIFY Performed By: #### M 100.678, L400.0001 ####[facility] [address] [place], [address] Basic Metabolic Profile (BMP )on 03-16-2024 BUN/CRE 25.1 RATIO High 10-20 [facility] Comment on above: Order Comment: Comme nts: NPO at [place] prior to lipid panel Performed By: #### L 500.4100, L100.0500, L500.2500 #### [facility] [address] [place], [address] CA,Total 9.2 mg/dL Normal 8.5-10.1 [facility] Comment on above: Order Comment: Comme nts: NPO at [place] prior to lipid panel Performed By: #### L 500.4100, L100.0500, L500.2500 #### [facility] [address] [place], [address] Chloride [Moles/Vol] 113 mmol/L High 98-107 [facility] Comment on above: Order Comment: Comme nts: NPO at [place] prior to lipid panel Performed By: #### L 500.4100, L100.0500, L500.2500 #### [facility] [address] [place], [address] CO2 [Moles/Vol] 24.0 mmol/L Normal 21.0-32.0 [facility] Comment on above: Order Comment: Comme nts: NPO at [place] prior to lipid panel Performed By: #### L 500.4100, L100.0500, L500.2500 #### [facility] [address] [place], [address] Creatinine [Mass/Vol] 0.68 mg/dL Normal 0.55-1.02 [facility] Comment on above: Order Comment: Comme nts: NPO at [place] prior to lipid panel Result Comment: The validity of the calculated GFR GFRAA in patients over 70 years has not been determined. Clinical correlation is essential. Performed By: #### L 500.4100, L100.0500, L500.2500 #### [facility] [address] [place], [address] ECRCL 68.48 ml/min Normal [facility] Comment on above: Order Comment: Comme nts: NPO at [place] prior to lipid panel Performed By: #### L 500.4100, L100.0500, L500.2500 #### [facility] [address] [place], [address] EST GFR - AA 110 mL/min Normal >60 [facility] Comment on above: Order Comment: Comme nts: NPO at [place] prior to lipid panel Result Comment: Afri can Thai GFR Calc Performed By: #### L 500.4100, L100.0500, L500.2500 #### [facility] [address] [place], [address] GAP 4 Low 5-15 [facility] Comment on above: Order Comment: Comme nts: NPO at [place] prior to lipid panel Performed By: #### L 500.4100, L100.0500, L500.2500 #### [facility] [address] [place], [address] GFR/1.73 sq M.predicted among non-blacks MDRD (S/P/Bld) [Vol rate/Area] 91 mL/min/{1.73_m2} Normal >60 [facility] Comment on above: Order Comment: Comme nts: NPO at [place] prior to lipid panel Result Comment: Non- GFR Calc Performed By: #### L 500.4100, L100.0500, L500.2500 #### [facility] [address] [place], [address] Glucose [Mass/Vol] 87 mg/dL Normal 74-106 [facility] Comment on above: Order Comment: Comme nts: NPO at [place] prior to lipid panel Performed By: #### L 500.4100, L100.0500, L500.2500 #### [facility] [address] [place], [address] Potassium [Moles/Vol] 4.7 mmol/L Normal 3.5-5.1 [facility] Comment on above: Order Comment: Comme nts: NPO at [place] prior to lipid panel Performed By: #### L 500.4100, L100.0500, L500.2500 #### [facility] [address] [place], [address] Sodium [Moles/Vol] 140 mmol/L Normal 136-145 [facility] Comment on above: Order Comment: Comme nts: NPO at [place] prior to lipid panel Performed By: #### L 500.4100, L100.0500, L500.2500 #### [facility] [address] [place], [address] Urea nitrogen [Mass/Vol] 17 mg/dL Normal 7-18 [facility] Comment on above: Order Comment: Comme nts: NPO at [place] prior to lipid panel Performed By: #### L 500.4100, L100.0500, L500.2500 #### [facility] [address] [place], [address] CBC-Complete Blood Cnt No Di ffon 03-16-2024 Erythrocyte distribution width (RBC) [Ratio] 12.5 % Normal 11.6-14.6 [facility] Comment on above: Order Comment: Comme nts: NPO at [place] prior to lipid panel Performed By: #### L 500.4100, L500.2500, L100.0100 #### [facility] [address] [place], [address] Hematocrit (Bld) [Volume fraction] 39.8 % Normal 37-47 [facility] Comment on above: Order Comment: Comme nts: NPO at [place] prior to lipid panel Performed By: #### L 500.4100, L500.2500, L100.0100 #### [facility] [address] [place], [address] Hemoglobin (Bld) [Mass/Vol] 13.0 g/dL Normal 12.0-15.0 [facility] Comment on above: Order Comment: Comme nts: NPO at [place] prior to lipid panel Performed By: #### L 500.4100, L500.2500, L100.0100 #### [facility] [address] [place], [address] MCH (RBC) [Entitic mass] 30.4 pg Normal 27.0-32.0 [facility] Comment on above: Order Comment: Comme nts: NPO at [place] prior to lipid panel Performed By: #### L 500.4100, L500.2500, L100.0100 #### [facility] [address] [place], [address] MCHC (RBC) [Mass/Vol] 32.7 g/dL Normal 32-36 [facility] Comment on above: Order Comment: Comme nts: NPO at [place] prior to lipid panel Performed By: #### L 500.4100, L500.2500, L100.0100 #### [facility] [address] [place], [address] MCV (RBC) [Entitic vol] 93.0 fL Normal 81-99 [facility] Comment on above: Order Comment: Comme nts: NPO at [place] prior to lipid panel Performed By: #### L 500.4100, L500.2500, L100.0100 #### [facility] [address] [place], [address] Platelet mean volume (Bld) [Entitic vol] 9.7 fL Normal 6.2-12.0 [facility] Comment on above: Order Comment: Comme nts: NPO at [place] prior to lipid panel Performed By: #### L 500.4100, L500.2500, L100.0100 #### [facility] [address] [place], [address] Platelets (Bld) [#/Vol] 232 10*3/uL Normal 150-450 [facility] Comment on above: Order Comment: Comme nts: NPO at [place] prior to lipid panel Performed By: #### L 500.4100, L500.2500, L100.0100 #### [facility] [address] [place], [address] RBC (Bld) [#/Vol] 4.28 10*6/uL Normal 4.2-5.4 [facility] Comment on above: Order Comment: Comme nts: NPO at [place] prior to lipid panel Performed By: #### L 500.4100, L500.2500, L100.0100 #### [facility] [address] [place], [address] RDW SD 43.1 fl Normal 35.1-43.9 [facility] Comment on above: Order Comment: Comme nts: NPO at [place] prior to lipid panel Performed By: #### L 500.4100, L500.2500, L100.0100 #### [facility] [address] [place], [address] WBC (Bld) [#/Vol] 5.5 10*3/uL Normal 4.4-11.0 [facility] Comment on above: Order Comment: Comme nts: NPO at [place] prior to lipid panel Performed By: #### L 500.4100, L500.2500, L100.0100 #### [facility] [address] [place], [address] HCT Normal 37-47 [facility] Comment on above: Order Comment: 0618. Result Comment: This specimen has been REJECTED due to Laboratory criteria: Clotted. [facility] STAFF has been notified of need of recollection. 03/16/24 0807 Rui Eaton Performed By: #### L 500.4100, L100.0500, L500.2500 #### [facility] [address] [place], [address] HGB Normal 12.0-15.0 [facility] Comment on above: Order Comment: 0618. Result Comment: This specimen has been REJECTED due to Laboratory criteria: Clotted. [facility] STAFF has been notified of need of recollection. 03/16/24806 Rui R Stoner Performed By: #### L 500.4100, L100.0500, L500.2500 #### [facility] [address] [place], [address] MCH Normal 27.0-32.0 [facility] Comment on above: Order Comment: 0618. Result Comment: This specimen has been REJECTED due to Laboratory criteria: Clotted. [facility] STAFF has been notified of need of recollection. 03/16/24806 Rui R Stoner Performed By: #### L 500.4100, L100.0500, L500.2500 #### [facility] [address] [place], [address] MCHC Normal 32-36 [facility] Comment on above: Order Comment: 0618. Result Comment: This specimen has been REJECTED due to Laboratory criteria: Clotted. [facility] STAFF has been notified of need of recollection. 03/16/24806 Rui R Stoner Performed By: #### L 500.4100, L100.0500, L500.2500 #### [facility] [address] [place], [address] MCV Normal 81-99 [facility] Comment on above: Order Comment: 0618. Result Comment: This specimen has been REJECTED due to Laboratory criteria: Clotted. [facility] STAFF has been notified of need of recollection. 03/16/24806 Rui R Stoner Performed By: #### L 500.4100, L100.0500, L500.2500 #### [facility] [address] [place], [address] PLT Normal 150-450 [facility] Comment on above: Order Comment: 0618. Result Comment: This specimen has been REJECTED due to Laboratory criteria: Clotted. [facility] STAFF has been notified of need of recollection. 03/16/24806 Rui R Stoner Performed By: #### L 500.4100, L100.0500, L500.2500 #### [facility] [address] [place], [address] RBC Normal 4.2-5.4 [facility] Comment on above: Order Comment: 0618. Result Comment: This specimen has been REJECTED due to Laboratory criteria: Clotted. [facility] STAFF has been notified of need of recollection. 03/16/24806 Rui R Stoner Performed By: #### L 500.4100, L100.0500, L500.2500 #### [facility] [address] [place], [address] RDW CV Normal 11.6-14.6 [facility] Comment on above: Order Comment: 0618. Result Comment: This specimen has been REJECTED due to Laboratory criteria: Clotted. [facility] has been notified of need of recollection. 03/16/24806 Rui R Stoner Performed By: #### L 500.4100, L100.0500, L500.2500 #### [facility] [address] [place], [address] RDW SD Normal 35.1-43.9 [facility] Comment on above: Order Comment: 0618. Result Comment: This specimen has been REJECTED due to Laboratory criteria: Clotted. [facility] STAFF has been notified of need of recollection. 03/16/24806 Rui R Stoner Performed By: #### L 500.4100, L100.0500, L500.2500 #### [facility] [address] [place], [address] WBC Normal 4.4-11.0 [facility] Comment on above: Order Comment: 0618. Result Comment: This specimen has been REJECTED due to Laboratory criteria: Clotted. [facility] STAFF has been notified of need of recollection. 03/16/24806 Rui R Stoner Performed By: #### L 500.4100, L100.0500, L500.2500 #### [facility] [address] [place], [address] Lipid Profileon 03-16-2024 Cholesterol [Mass/Vol] 185 mg/dL Normal 200 [facility] Comment on above: Order Comment: Comme nts: NPO at [place] prior to lipid panel Result Comment: <200 mg/dL Desirable 200-240 mg/dL Borderline >240 mg/dL High Risk Performed By: #### L 500.4100, L100.0500, L500.2500 #### [facility] [address] [place], [address] Cholesterol in HDL [Mass/Vol] 47 mg/dL Normal [facility] Comment on above: Order Comment: Comme nts: NPO at [place] prior to lipid panel Result Comment: The drugs N-Acetylcysteine and Metamizole may falsely depress this assay. Reference Range HDL <40 mg/dL Low HDL Cholesterol HDL >or= 60 mg/dL High HDL Cholesterol Performed By: #### L 500.4100, L100.0500, L500.2500 #### [facility] [address] [place], [address] Cholesterol in LDL [Mass/Vol] 111 mg/dL Normal 0-130 [facility] Comment on above: Order Comment: Comme nts: NPO at [place] prior to lipid panel Performed By: #### L 500.4100, L100.0500, L500.2500 #### [facility] [address] [place], [address] Cholesterol in VLDL [Mass/Vol] 27 mg/dL Normal 5-40 [facility] Comment on above: Order Comment: Comme nts: NPO at [place] prior to lipid panel Performed By: #### L 500.4100, L100.0500, L500.2500 #### [facility] [address] [place], [address] Triglyceride [Mass/Vol] 134 mg/dL Normal [facility] Comment on above: Order Comment: Comme nts: NPO at [place] prior to lipid panel Result Comment: The drugs N-Acetylcysteine and Metamizole may falsely depress this assay. Serum Triglycerides Reference Interval Normal <150 mg/dL Borderline high 150 - 199 mg/dL High 200 - 499 mg/dL Very High > or = 500 mg/dL Performed By: #### L 500.4100, L100.0500, L500.2500 #### [facility] [address] [place], [address] MR/CON.PCM.NEon 03-16-2024 MR/CON.PCM.NE [facility] Medical Records Department [address] [place] [address] Consultation - Neurology 03/16/24 1242 MR#: [id number] Acct: [id number] Name: SLOANE RINALDI Rep #: [id number] : 1950 73 From: Ismael Aguirre MD PCP: Dr. Bryan Barboza MD Status:ADM STEFAN Location: [place] [address] Assessment and Plan: Stroke Assessment/Plan SLOANE RINALDI, is a 73 F with HTN and thyroid issues who presents with transient left sided numbness that started suddenly while at home at 5pm on 03/15/24 which lasted about 30min and went to OSH to get evaluated. By the time she arrived she was back to normal. This has never happened before. CTH/CTA neg. MRI brain showing small punctate diffusion restricting lesions in right hemisphere which appear to represent small embolic acute ischemic strokes. a1c 5.2, ldl 111. Presentation is secondary to acute ischemic right frontal parietal strokes which are cryptogenic at this time. Plan: - ASA 81mg - Plavix 75mg only for 21d - High intensity statin - Cv risk factor optimization - f/u with neuro after dc - TTE pending, if neg will need 30d event monitor at dc - No further work up other than above. Please call me for any questions or concerns. Can be dcd if tte is neg with 30d event monitor from stroke perspective. HPI Consult Data Date of Consult: 03/16/24 HPI Narrative HPI Narrative: SLOANE RINALDI, is a 73 F with HTN and thyroid issues who presents with transient left sided numbness that started suddenly while at home at 5pm on 03/15/24 which lasted about 30min and went to OSH to get evaluated. By the time she arrived she was back to normal. This has never happened before. CTH/CTA neg. MRI brain showing small punctate diffusion restricting lesions in right hemisphere which appear to represent small embolic acute ischemic strokes. a1c 5.2, ldl 111. Presentation is secondary to acute ischemic right frontal parietal strokes which are cryptogenic at this time. [facility] Medical History (Updated 03/15/24 @ 18:[address] Reagan Hayes, DO) Melanoma Lower extremity pain Home Medications ???Medication ???Instructions ???Recorded ???Last Taken ???Type levothyroxine 100 mcg capsule 100 mcg PO DAILY 02/08/21 Unknown History losartan 50 mg-hydrochlorothiaz dallin 1 tab PO DAILY 02/08/21 Unknown History 12.5 mg tablet Allergy/AdvReac Type Severity Reaction Status Date / Time Sulfa (Sulfonamide Allergy unknown Verified 02/17/23 18:14 Antibiotics) Social History Smoking Status: Never smoker Vital Signs Vital Signs Vital Signs: 03/15/24 17:48 03/15/24 18:03 03/15/24 18:05 Temperature 98.9 F 97.5 F L Temperature Source Oral Oral Pulse Rate 81 Respiratory Rate 20 H Respiratory Effort Respiratory Depth Blood Pressure 142/73 H Blood Pressure Mean 96 Blood Pressure Source Blood Pressure Position Blood Pressure Location Pulse Ox 96 Oxygen Delivery Method Room Air Room Air 03/15/24 19:00 03/15/24 19:30 03/15/24 20:00 Temperature 98 F Temperature Source Pulse Rate 83 80 85 Respiratory Rate 15 16 16 Respiratory Effort Respiratory Depth Blood Pressure 137/81 H 141/75 H 159/97 H Blood Pressure Mean 99 97 117 Blood Pressure Source Blood Pressure Position Blood Pressure Location Pulse Ox 98 98 97 Oxygen Delivery Method 03/15/24 20:22 03/15/24 22:00 03/15/24 22:46 Temperature 97.2 F L Temperature Source Temporal Pulse Rate 84 Respiratory Rate 18 Respiratory Effort Normal Non-Labored Respiratory Depth Normal Blood Pressure 142/79 H Blood Pressure Mean 100 Blood Pressure Source Monitor Blood Pressure Position Supine Blood Pressure Location Left Arm Pulse Ox 98 92 Oxygen Delivery Method Room Air Room Air Room Air 03/16/24 00:20 03/16/24 04:18 03/16/24 07:40 Temperature 98.2 F 97.2 F L Temperature Source Temporal Temporal Pulse Rate 91 84 Respiratory Rate 18 18 Respiratory Effort Respiratory Depth Blood Pressure 121/65 H 133/74 H Blood Pressure Mean 83 93 Blood Pressure Source Monitor Monitor Blood Pressure Position Semi-Fowlers Semi-Fowlers Blood Pressure Location Left Arm Right Arm Pulse Ox 95 94 93 Oxygen Delivery Method Room Air Room Air Room Air 03/16/24 09:52 Temperature 97.9 F Temperature Source Oral Pulse Rate 90 Respiratory Rate 16 Respiratory Effort Respiratory Depth Blood Pressure 140/73 H Blood Pressure Mean 95 Blood Pressure Source Monitor Blood Pressure Position Semi-Fowlers Blood Pressure Location Left Arm Pulse Ox 97 Oxygen Delivery Method Room Air Weight Weight: 92 kg Body Mass Index (BMI) 35.9 NIHSS NIHSS Nursing Documentation NIHSS Nursi (more content not included)... Normal [facility] 12 Lead EKGon 03-15-2024 12 Lead EKG [facility] Cardiovascular Services [address] [place] [address] 12 Lead EKG 03/15/24 1820 MR#: [id number] Acct: [id number] Name: SLOANE RINALDI Rep #: [id number] : 1950 73 From: Clif Johnson MD Attending Dr: Dr. No Cazares DO Status: ADM I NO Ordering Dr: Reagan Hayes DO Date: 03/15/24 Location: U Sex: F C Admitted: 03/15/24 Test Reason : STROKE Blood Pressure : */* mmHG Vent. Rate : 76 BPM Atrial Rate : 76 BPM P-R Int : 158 ms QRS Dur : 142 ms QT Int : 430 ms P-R-T Axes : 41 -10 -5 degrees QTcB Int : 483 ms Normal sinus rhythm Right bundle branch block Abnormal ECG Confirmed by CLIF JOHNSON MD ([id number]), news copy editor DEBBIE WHYTE ([id number]) on 03/16/2024 8:17:48 AM Referred By: Confirmed By: CLIF JOHNSON MD 03/16/24 0817 Date Clif Johnson MD CC: Dr. Bryan Barboza MD; Dr. No Cazares DO; Dr. Reagan Hayes DO Signed Normal [facility] Basic Metabolic Profile (BMP )on 03-15-2024 BUN/CRE 28.5 RATIO High 10-20 [facility] Comment on above: Order Comment: Comme nts: NPO at [place] prior to lipid panel Performed By: #### L 500.4100, L500.2500, L100.0100 #### [facility] [address] [place], [address] CA,Total 9.3 mg/dL Normal 8.5-10.1 [facility] Comment on above: Order Comment: Comme nts: NPO at [place] prior to lipid panel Performed By: #### L 500.4100, L500.2500, L100.0100 #### [facility] [address] [place], [address] Chloride [Moles/Vol] 105 mmol/L Normal 98-107 [facility] Comment on above: Order Comment: Comme nts: NPO at [place] prior to lipid panel Performed By: #### L 500.4100, L500.2500, L100.0100 #### [facility] [address] [place], [address] CO2 [Moles/Vol] 29.0 mmol/L Normal 21.0-32.0 [facility] Comment on above: Order Comment: Comme nts: NPO at [place] prior to lipid panel Performed By: #### L 500.4100, L500.2500, L100.0100 #### [facility] [address] [place], [address] Creatinine [Mass/Vol] 0.74 mg/dL Normal 0.55-1.02 [facility] Comment on above: Order Comment: Comme nts: NPO at [place] prior to lipid panel Result Comment: The validity of the calculated GFR GFRAA in patients over 70 years has not been determined. Clinical correlation is essential. Performed By: #### L 500.4100, L500.2500, L100.0100 #### [facility] [address] [place], [address] ECRCL 67.07 ml/min Normal [facility] Comment on above: Order Comment: Comme nts: NPO at [place] prior to lipid panel Performed By: #### L 500.4100, L500.2500, L100.0100 #### [facility] [address] [place], [address] EST GFR - AA 100 mL/min Normal >60 [facility] Comment on above: Order Comment: Comme nts: NPO at [place] prior to lipid panel Result Comment: Afri can Thai GFR Calc Performed By: #### L 500.4100, L500.2500, L100.0100 #### [facility] [address] [place], [address] GAP 6 Normal 5-15 [facility] Comment on above: Order Comment: Comme nts: NPO at [place] prior to lipid panel Performed By: #### L 500.4100, L500.2500, L100.0100 #### [facility] [address] [place], [address] GFR/1.73 sq M.predicted among non-blacks MDRD (S/P/Bld) [Vol rate/Area] 82 mL/min/{1.73_m2} Normal >60 [facility] Comment on above: Order Comment: Comme nts: NPO at [place] prior to lipid panel Result Comment: Non- GFR Calc Performed By: #### L 500.4100, L500.2500, L100.0100 #### [facility] [address] [place], [address] Glucose [Mass/Vol] 81 mg/dL Normal 74-106 [facility] Comment on above: Order Comment: Comme nts: NPO at [place] prior to lipid panel Performed By: #### L 500.4100, L500.2500, L100.0100 #### [facility] [address] [place], [address] Potassium [Moles/Vol] 3.4 mmol/L Low 3.5-5.1 [facility] Comment on above: Order Comment: Comme nts: NPO at [place] prior to lipid panel Performed By: #### L 500.4100, L500.2500, L100.0100 #### [facility] [address] [place], [address] Sodium [Moles/Vol] 139 mmol/L Normal 136-145 [facility] Comment on above: Order Comment: Comme nts: NPO at [place] prior to lipid panel Performed By: #### L 500.4100, L500.2500, L100.0100 #### [facility] [address] [place], [address] Urea nitrogen [Mass/Vol] 21 mg/dL High 7-18 [facility] Comment on above: Order Comment: Comme nts: NPO at [place] prior to lipid panel Performed By: #### L 500.4100, L500.2500, L100.0100 #### [facility] [address] [place], [address] Brain without Contraston Brain without Contrast [facility] Imaging Services [address] [place] [address] Brain without Contrast MR#: [id number] Acct: [id number] Name: SLOANE RINALDI Rep #: [id number] : 1950 F 73 From: Charlene Bazan MD PCP: Dr. Bryan Barboza MD Status: ADM STEFAN Study: Brain without Contrast Date of Exam: 03/15/24 Exam# [id number] Ordering Dr: Reno Hagan DO ADDENDUM by Dr. Charlene Bazan MD on 03/15/24 at 2144 [id number] EXAM: MR HEAD WITHOUT INTRAVENOUS CONTRAST CLINICAL INDICATION: r/o CVA, TEMPORARY LT SIDED WEAKNESS NUMBNESS IN FACE ARM TECHNIQUE: Multiplanar and multisequence MR images of the brain were obtained without intravenous contrast. COMPARISON: No relevant prior studies available. FINDINGS: BRAIN AND EXTRA-AXIAL SPACES: Mild cerebral volume loss. Minimal deep periventricular high signal white matter changes and a few slight high signal small foci in the subcortical white matter on T2-weighted inversion recovery images. No susceptibility artifacts. There are 3 tiny foci of mild increased signal intensity in the right centrum semiovale, and 2 separate foci in the adjacent right superior lateral frontal lobe steward matter. There are too small to confirm acute restricted diffusion on ADC map. No intra- or extra-axial hemorrhage. No evidence of acute infarct. No intracranial mass or mass effect. Posterior fossa structures are unremarkable. No hydrocephalus. Basal cisterns are patent. SELLA: Unremarkable. Normal sella turcica, pituitary gland, infundibular stalk, optic chiasm and hypothalamus. AUDITORY SYSTEM: Unremarkable. The internal auditory canals are patent. BONES/JOINTS: Unremarkable. No discrete lytic or blastic abnormalities. SINUSES: Unremarkable as visualized. Clear. MASTOID AIR CELLS: Unremarkable as visualized. Clear. ORBITS: Unremarkable as visualized. Both globes, extraocular muscles, optic nerves and retrobulbar fat appear unremarkable. VASCULATURE: Unremarkable as visualized. Normal flow voids in the major intracranial circulation. 03/15/242143 Date cc: Dr. Reno Hagan DO; Dr. Bryan Barboza MD * Signed ADDENDUM by Dr. Charlene Bazan MD on 03/15/24 at 2144 MRI/Brain without Contrast IMPRESSION: 1. 3 tiny foci of increased signal intensity on diffusion-weighted images in the right subcortical white matter and 2 separate adjacent right superior lateral frontal lobe steward matter foci. These measure 3-5 mm. They are too small to confirm to be foci of acute restricted diffusion on ADC map but they are possibly due to embolic phenomenon. 2. Correlate with any left-sided weakness. 3. Otherwise minimal chronic white matter changes and mild volume loss. N.B. : The above Results were Read Back by Charlene Bazan MD to adela lenz RN, and understanding confirmed on 03/15/2024 22:29:31 (ET). Electronically Signed: Charlene Bazan MD at 21:44 EST , 03/15/242235 Date cc: Dr. Reno Hagan, DO; Dr. Bryan Barboza MD * Signed We are attempting to reach an attending provider to discuss findings. An addendum with communication details will be sent when the communication is complete. [id number] EXAM: MR HEAD WITHOUT INTRAVENOUS CONTRAST CLINICAL INDICATION: r/o CVA, TEMPORARY LT SIDED WEAKNESS NUMBNESS IN FACE ARM TECHNIQUE: Multiplanar and multisequence MR images of the brain were obtained without intravenous contrast. COMPARISON: No relevant prior studies available. FINDINGS: BRAIN AND EXTRA-AXIAL SPACES: Mild cerebral volume loss. Minimal deep periventricular high signal white matter changes and a few slight high signal small foci in the subcortical white matter on T2-weighted inversion recovery images. No susceptibility artifacts. There are 3 tiny foci of mild increased signal intensity in the right centrum semiovale, and 2 separate foci in the adjacent right superior lateral frontal lobe steward matter. There are too small to confirm acute restricted diffusion on ADC map. No intra- or extra-axial hemorrhage. No evidence of acute infarct. No intracranial mass or mass effect. Posterior fossa structures are unremarkable. No hydrocephalus. Basal cisterns are patent. SELLA: Unremarkable. Normal sella turcica, pituitary gland, infundibular stalk, optic chiasm and hypothalamus. AUDITORY SYSTEM: Unremarkable. The internal auditory canals are patent. BONES/JOINTS: Unremarkable. No discrete lytic or blastic abnormalities. SINUSES: Unremarkable as visualized. Clear. MASTOID AIR CELLS: Unremarkable as visualized. Clear. ORBITS: Unremarkable as visualiz (more content not included)... Normal [facility] CBC W/Diff, Automatedon 12-0 Absolute Lymph 2.88 X10 3/uL Normal 0.83-4.51 [facility] Comment on above: Performed By: #### L 500.4100, L500.2500, L100.0100 #### [facility] [address] [place], [address] Absolute Neut 2.9 X10 3/uL Normal 2.0-7.7 [facility] Comment on above: Performed By: #### L 500.4100, L500.2500, L100.0100 #### [facility] [address] [place], [address] Basophils/100 WBC (Bld) 0.4 % Normal 0-1 [facility] Comment on above: Performed By: #### L 500.4100, L500.2500, L100.0100 #### [facility] [address] [place], [address] Eosinophils/100 WBC (Bld) 2.5 % Normal 0-5 [facility] Comment on above: Performed By: #### L 500.4100, L500.2500, L100.0100 #### [facility] [address] [place], [address] Erythrocyte distribution width (RBC) [Ratio] 12.7 % Normal 11.6-14.6 [facility] Comment on above: Performed By: #### L 500.4100, L500.2500, L100.0100 #### [facility] [address] [place], [address] Hematocrit (Bld) [Volume fraction] 36.3 % Low 37-47 [facility] Comment on above: Performed By: #### L 500.4100, L500.2500, L100.0100 #### [facility] [address] [place], [address] Hemoglobin (Bld) [Mass/Vol] 12.2 g/dL Normal 12.0-15.0 [facility] Comment on above: Performed By: #### L 500.4100, L500.2500, L100.0100 #### [facility] [address] [place], [address] IG% 0.400 Normal 0.0-0.9 [facility] Comment on above: Result Comment: IG% - Immature Granulocytes (promyelocytes, myelocytes and metamyelocytes) > 1% indicates that a LEFT SHIFT is Present. Performed By: #### L 500.4100, L500.2500, L100.0100 #### [facility] [address] [place], [address] Lymphocytes/100 WBC (Bld) 42.1 % High 19-41 [facility] Comment on above: Performed By: #### L 500.4100, L500.2500, L100.0100 #### [facility] [address] [place], [address] MCH (RBC) [Entitic mass] 31.2 pg Normal 27.0-32.0 [facility] Comment on above: Performed By: #### L 500.4100, L500.2500, L100.0100 #### [facility] [address] [place], [address] MCHC (RBC) [Mass/Vol] 33.6 g/dL Normal 32-36 [facility] Comment on above: Performed By: #### L 500.4100, L500.2500, L100.0100 #### [facility] [address] [place], [address] MCV (RBC) [Entitic vol] 92.8 fL Normal 81-99 [facility] Comment on above: Performed By: #### L 500.4100, L500.2500, L100.0100 #### [facility] [address] [place], [address] Monocytes/100 WBC (Bld) 12.1 % High 0-10 [facility] Comment on above: Performed By: #### L 500.4100, L500.2500, L100.0100 #### [facility] [address] [place], [address] Neutrophils/100 WBC (Bld) 42.5 % Low 47-70 [facility] Comment on above: Performed By: #### L 500.4100, L500.2500, L100.0100 #### [facility] [address] [place], [address] Nucleated RBC (Bld) [#/Vol] 0 10*3/uL Normal 0-5 [facility] Comment on above: Performed By: #### L 500.4100, L500.2500, L100.0100 #### [facility] [address] [place], [address] Platelet mean volume (Bld) [Entitic vol] 9.8 fL Normal 6.2-12.0 [facility] Comment on above: Performed By: #### L 500.4100, L500.2500, L100.0100 #### [facility] [address] [place], [address] Platelets (Bld) [#/Vol] 225 10*3/uL Normal 150-450 [facility] Comment on above: Performed By: #### L 500.4100, L500.2500, L100.0100 #### [facility] [address] [place], [address] RBC (Bld) [#/Vol] 3.91 10*6/uL Low 4.2-5.4 [facility] Comment on above: Performed By: #### L 500.4100, L500.2500, L100.0100 #### [facility] [address] [place], [address] RDW SD 43.1 fl Normal 35.1-43.9 [facility] Comment on above: Performed By: #### L 500.4100, L500.2500, L100.0100 #### [facility] [address] [place], [address] WBC (Bld) [#/Vol] 6.8 10*3/uL Normal 4.4-11.0 [facility] Comment on above: Performed By: #### L 500.4100, L500.2500, L100.0100 #### [facility] [address] [place], [address] Chest 1 Viewon 03-15-2024 Chest 1 View [facility] Imaging Services [address] [place] [address] Chest 1 View MR#: [id number] Acct: [id number] Name: SLOANE RINALDI Rep #: [id number] : 1950 F 73 From: Charlene Bazan MD PCP: Dr. Bryan Barboza MD Status: ADM STEFAN Study: Chest 1 View Date of Exam: 03/15/24 Exam# [id number] Ordering Dr: Reagan Hayes DO [id number] EXAM: XR CHEST, 1 VIEW CLINICAL INDICATION: Neuro deficit, acute, stroke suspected TECHNIQUE: Frontal view of the chest. COMPARISON: . February 17, 2023. FINDINGS: LUNGS AND PLEURAL SPACES: Slightly increased interstitial markings in the lung bases are similar. No pneumothorax. No effusion. No suspicious infiltrates. HEART: Unremarkable. Cardiac silhouette not enlarged. MEDIASTINUM: Central airways and mediastinal contour are unremarkable. BONES/JOINTS: Surgical clips in the right axilla are again noted. Thoracic spondylosis again noted. No acute fracture. SOFT TISSUES: Unremarkable. RAD/Chest 1 View IMPRESSION: Stable chest. Electronically Signed: Charlene Bazan MD at 20:16 EST , CC: Dr. Bryan Barboza MD; Dr. Reagan Hayes DO [place] Steward: Signed Normal [facility] Echo Completeon 03-15-2024 Echo Complete [facility] [place] [address] [place] [address] Echo Complete 03/16/24 0916 MR#: [id number] Acct: [id number] Name: SLOANE RINALDI Rep #: [id number] : 1950 73 From: Clif Johnson MD Attending Dr: Dr. No Cazares DO Status: ADM I NO Ordering Dr: Reno Hagan DO Date: 03/15/24 Location: [facility] Sex: F C Admitted: 03/15/24 Reason For Study: TIA/CVA Procedure This was a 2D Doppler, Color Flow transthoracic echocardiogram. Exam performed portable in patient room. Left Ventricle Normal LV size. Left ventricular systolic function is normal. The left ventricular ejection fraction is 70 %. No regional wall motion abnormalities noted. Right Ventricle Normal RV size. Normal systolic function. Atria Normal left atrium. Normal right atrium. Bubble contrast study is negative for PFO/ASD. Mitral Valve There is mild mitral annular calcification. Tricuspid Valve Normal tricuspid valve. Aortic Valve Trisinus/trileaflet aortic valve. Pulmonic Valve Normal pulmonic valve. Great Vessels Normal aortic root. The pulmonary artery is normal size. Inferior vena cava collapse with respiration. Pericardium/Pleural No pericardial effusion. Medication Performed a rapid injection of agitated mix of 9 cc saline and 1cc air to assess for atrial septal defect. MMode/2D Measurements Calculations LVIDd: 4.8 cm IVSd: 1.0 cm LVOT diam: 1.9 cm LVIDs: 2.3 cm LVPWd: 0.93 cm RVDd: 3.0 cm FS: 51.8 % LVOT area: 2.8 cm2 asc Aorta Diam: 3.5 cm LAV(MOD-bp): 34.2 ml LVAd ap4: 17.6 cm2 LAV(MOD-bp) Indexed: 17.6 ml/m2 LVLd ap4: 6.7 cm LAV(MOD-sp2): 35.4 ml EDV(MOD-sp4): 37.9 ml LAV(MOD-sp4): 32.2 ml EDV(sp4-el): 39.0 ml LVAs ap4: 8.1 cm2 LVLs ap4: 5.2 cm ESV(MOD-sp4): 10.8 ml ESV(sp4-el): 10.8 ml EF(MOD-sp4): 71.4 % EF(sp4-el): 72.4 % LVAd ap2: 14.9 cm2 SV(MOD-sp4): 27.1 ml SV(MOD-sp2): 21.5 ml LVLd ap2: 6.3 cm SI(MOD-sp4): 13.9 ml/m2 SI(MOD-sp2): 11.1 ml/m2 EDV(MOD-sp2): 29.6 ml EDV(sp2-el): 29.9 ml LVAs ap2: 7.0 cm2 LVLs ap2: 5.0 cm ESV(MOD-sp2): 8.1 ml ESV(sp2-el): 8.3 ml EF(MOD-sp2): 72.7 % SV(sp4-el): 28.3 ml Ao sinus diam: 3.[address] Junction: 3.1 cm LA dimension(2D): 3.7 cm LA A4 area: 14.4 cm2 RA A4 area: 10.6 cm2 TAPSE: 2.1 cm Time Measurements MV dec time: 0.40 sec Doppler Measurements Calculations MV E max nela: 108.9 cm/sec Lat Peak E' Nela: 6.7 cm/sec Med Peak E' Nela: 6.4 cm/sec MV A max nela: 154.5 cm/sec E/E' lat: 16.2 E/E' med: 17.0 MV E/A: 0.71 MV dec slope: 273.8 cm/sec2 Ao V2 max: 157.9 cm/sec LV V1 max: 137.9 cm/sec Ao max P.0 mmHg LV V1 max P.6 mmHg Ao V2 mean: 107.8 cm/sec LV V1 mean P.4 mmHg Ao mean P.3 mmHg LV V1 mean: 99.9 cm/sec Ao V2 VTI: 32.2 cm LV V1 VTI: 29.1 cm AV (velocity ratio): 0.90 THADDEUS(I,D): 2.5 cm2 THADDEUS(V,D): 2.4 cm2 SV(LVOT): 80.1 ml PA V2 max: 98.0 cm/sec TR max nela: 167.9 cm/sec TR max P.3 mmHg ECHO/Echo Complete Interpretation Summary Normal LV size. Left ventricular systolic function is normal. The left ventricular ejection fraction is 70 %. Bubble contrast study is negative for PFO/ASD. There is mild mitral annular calcification. __ Ordering Physician: Reno Hagan Referring Physician: Bryan Barboza MD Performed By: Myla Escobar RDCS and Student 03/16/24 1246 Date Clif Johnson MD CC: Dr. Reno Hagan DO; Dr. Bryan Barboza MD; Dr. No Cazares DO Date Dictated: 03/16/2416 Date Transcribed: 03/16/24 124 [place] [facility]: Signed Normal [facility] Emergency Department Summary on 03-15-2024 Emergency Department Summary [facility] Medical Records Department [address] [place] [address] Emergency Department Summary 03/15/24 MR#: [id number] Acct: [id number] Name: SLOANE RINALDI Rep #: [id number] : 1950 73 From: Reagan Hayes DO PCP: Dr. Bryan Barboza MD Status:ADM STEFAN Location: [place] [address] HPI History of Present Illness Chief Complaint: Stroke Alert Detail of Chief Complaint: Paresthesias Informant: patient Narrative Narrative: Patient presents to the emergency department via EMS with concern for paresthesias to the left face and left arm and left leg. Patient states symptoms started at 5 PM. She has not had symptoms like this before. No history of stroke. She is not anticoagulated. Initially did not have a headache but currently has a mild headache. She denies recent illness. She has history of hypertension. Patient states currently her symptoms are resolved. [facility] Medical History (Updated 03/15/24 @ 18:[address] Reagan Hayes, DO) Melanoma Lower extremity pain Home Medications ???Medication ???Instructions ???Recorded ???Last Taken ???Type levothyroxine 100 mcg capsule 100 mcg PO DAILY 02/08/21 Unknown History losartan 50 mg-hydrochlorothiaz dallin 1 tab PO DAILY 02/08/21 Unknown History 12.5 mg tablet Allergy/AdvReac Type Severity Reaction Status Date / Time Sulfa (Sulfonamide Allergy unknown Verified 02/17/23 18:14 Antibiotics) Social History Smoking Status: Never smoker ROS ROS ED Review of Systems ROS Unobtainable: other Constitutional Constitutional ED: Reports lethargy; Denies chills, fever(s), sweats or weight loss Eyes Eyes: Denies blurry vision, change in vision or diplopia ENT ENT ED: Denies rhinorrhea or sore throat Cardiovascular Cardiovascular: Denies chest pain, orthopnea or racing heartbeat Respiratory/Chest Respiratory/Chest: Denies cough, dyspnea, dyspnea on exertion, orthopnea or sputum Gastrointestinal Gastrointestinal: Denies abdominal pain, diarrhea, nausea or vomiting Genitourinary Genitourinary ED: Denies dysuria, hematuria or urinary frequency Musculoskeletal Musculoskeletal: Denies arthralgias, back pain, myalgias or neck pain Integumentary Denies abscess, Abrasions or rash Neurologic Neurologic: Reports headache(s) and paresthesias; Denies weakness Psychiatric Psychiatric: Denies anxiety, depression or suicidal thoughts Endocrine Endocrinology: Denies polydipsia, polyphagia or polyuria Hematologic/Lymphat ic Hematologic/Lymphat ic: Denies easy bleeding, easy bruising or lymphadenopathy Allergic/Immunologi c Allergic/Immunologi c ED: Denies mouth swelling, tongue swelling or urticaria EXAM Physical Exam Const Vital Signs: 03/15/24 17:48 03/15/24 18:03 03/15/24 18:05 Temperature 98.9 F 97.5 F L Temperature Source Oral Oral Pulse Rate 81 Respiratory Rate 20 H Blood Pressure 142/73 H Blood Pressure Mean 96 Pulse Ox 96 Oxygen Delivery Method Room Air Room Air Positive well nourished and well developed General Appearance ED: well developed and NAD HEENT Reports TM's clear and moist mucous membranes normocephalic and atraumatic; Negative for trauma or tenderness Tympanic Membrane ED: Yes TM's clear Eyes PERRL and EOMs intact bilaterally General Eye ED: Negative for pale conjunctiva or scleral icterus Neck no lymphadenopathy, supple and no JVD General: Negative for tenderness Chest Wall inspection of chest normal and palpation of chest normal Chest: Negative for tenderness Resp normal respiratory effort and clear to auscultation bilaterally Effort and Inspection: Negative for respiratory distress or pain with movement Auscultation: Negative for rhonchi, wheezes or diminished lung sounds Cardio regular rate, regular rhythm, S1 normal heart sound, S2 normal heart sound and no murmurs Peripheral Pulses: pulses 2+ throughout GI normal to inspection, nondistended, normoactive bowel sounds, soft to palpation, non-tender, non- distended and no masses Back/Spine no CVA tenderness and no thoracic nor lumbar tenderness Extremity normal to inspection General Extremety ED: Negative for edema General Extremity: Negative for edema Neuro oriented x3, CN's II-XII intact bilaterally, no sensory deficits noted and gait normal Neuro Narrative: NIH stroke scale is 0. No focal weakness noted. No sensory deficits noted currently. No ataxia. Sensorium / Orientation: awake, alert, oriented to person, oriented to place and oriented to time Motor Exam: strength 5/5 throughout and strength abnormal Psych mental status grossly normal Skin no rashes or lesions noted and no wounds MDM MDM MDM Narrative Medical decision making narrative: Patient presents with paresthesia to the left side of her body and left face concerning for TIA gi (more content not included)... Normal [facility] H AND P Exam - Hospitaliston 03-15-2024 H&P Exam - Hospitalist [facility] Department [address] [place] [address] H P Exam - Hospitalist 03/15/24 1734 MR#: [id number] Acct: [id number] Name: SLOANE RINALDI Rep #: [id number] : 1950 73 From: Reno Hagan DO PCP: Dr. Bryan Barboza MD Status:ADM STEFAN Location: [place] [address] HPI - General General Date of Admission: 03/15/24 Date of Service: 03/15/24 Chief Complaint: Strokelike symptoms HPI Narrative SLOANE RINALDI, is a 73 F who presented to [facility] ED on 03/15/2024 with strokelike symptoms. Patient had acute onset paresthesias of her left face, left arm and left leg around 5 PM tonight. Has never had symptoms like this before. No history of stroke. Denies any motor issues with the arm or leg with this. Her symptoms lasted for about 20 minutes and then resolved. Symptoms had resolved by arrival to the ED. She was a stroke alert on arrival. CT brain was negative. CTA head/neck showed mild plaque of the bilateral cervical ICAs and mild calcifications of intracranial ICAs with no significant stenosis. She had mild hypertension with systolic in the 140s but was otherwise hemodynamically stable on room air. Was evaluated by teleneurology in the ED who recommended admission for further stroke workup. Hospitalist was then contacted for admission. I saw the patient at bedside in the ED, was present. Patient was sitting up comfortably in bed, conversing normally, in no acute distress. She denied any current pain or discomfort. Denied any left arm or leg numbness or tingling. Denied any left facial numbness or tingling. Denied any other concerns at this time. Will be admitted for further management. [facility] Medical History (Updated 03/15/24 @ 18:[address] Reagan Hayes DO) Melanoma Lower extremity pain Home Medications ???Medication ???Instructions ???Recorded ???Last Taken ???Type levothyroxine 100 mcg capsule 100 mcg PO DAILY 02/08/21 Unknown History losartan 50 mg-hydrochlorothiaz dallin 1 tab PO DAILY 02/08/21 Unknown History 12.5 mg tablet Allergy/AdvReac Type Severity Reaction Status Date / Time Sulfa (Sulfonamide Allergy unknown Verified 02/17/23 18:14 Antibiotics) Social History Smoking Status: Never smoker ROS Constitutional Constitutional: Denies chills, fatigue, fever(s) or weakness Eyes Eyes: Denies change in vision Cardiovascular Cardiovascular: Denies chest pain, palpitations or syncope Respiratory/Chest Respiratory/Chest: Denies cough or shortness of breath at rest Gastrointestinal Gastrointestinal: Denies abdominal pain Musculoskeletal Musculoskeletal: Denies arthralgias or myalgias Neurologic Neurologic: Denies abnormal gait, confusion, disequilibrium, dizziness, focal weakness, headache(s), numbness, paresthesias or tingling Vital Signs Vital Signs Vital Signs: 03/15/24 17:48 03/15/24 18:03 03/15/24 18:05 Temperature 98.9 F 97.5 F L Temperature Source Oral Oral Pulse Rate 81 Respiratory Rate 20 H Blood Pressure 142/73 H Blood Pressure Mean 96 Pulse Ox 96 Oxygen Delivery Method Room Air Room Air Weight Weight: 88.5 kg Body Mass Index (BMI) 34.5 Physical Exam Const alert, oriented x3 and no apparent distress Constitutional Narrative: Pleasant elderly female, class II obesity, sitting up comfortably in bed, conversing normally, in no acute distress. General Appearance: cooperative and comfortable HEENT normocephalic, head/scalp atraumatic, hearing grossly normal bilaterally, nasal mucous membranes and turbinates normal and moist oral mucous membranes Eyes PERRL, EOMs intact bilaterally and conjunctivae normal Neck full ROM Chest inspection of chest normal Resp normal respiratory effort, normal air movement, no use of accessory muscles and clear to auscultation bilaterally Cardio regular rate, regular rhythm, no murmurs and peripheral pulses 2+ throughout GI normal to inspection, nondistended, normoactive bowel sounds, soft to palpation, non-tender and non- distended Back/Spine normal ROM Extremity normal to inspection, full ROM and no pedal edema Skin no rashes or lesions noted Neuro oriented x3, moves all extremities and no focal motor deficits Speech: speech normal Motor Exam: strength 5/5 throughout Psych mental status grossly normal Results Lab / Micro Data 03/15/24 18:04 03/15/24 18:04 Labs: Laboratory Results - last 24 hr 03/15/24 18:04: WBC 6.8, RBC 3.91 L, Hgb 12.2, Hct 36.3 L, MCV 92.8, MCH 31.2, MCHC 33.6, RDW Std Deviation 43.1, RDW Coeff of [place] 12.7, Plt Count 225, MPV 9.8, Immature Gran % (Auto) 0.400, Neut % (Auto) 42.5 L, Lymph % (Auto) 42.1 H, [place] % (Auto) 12.1 H, Eos % (Auto) 2.5, Baso % (Auto) 0.4, Absolute Neuts (auto) 2.9, Absolute Lymphs (auto (more content not included)... Normal [facility] Hemoglobin A1con 03-15-2024 HbA1c (Bld) [Mass fraction] 5.2 % Normal 3.8-5.6 [facility] Comment on above: Result Comment: Norm al < 5.7 % Prediabetic 5.7 - 6.4 % Diabetic >or= 6.5 % Please note range changes. Performed By: #### L 501.9985 ####[facility] [address] [place], [address] L501.4020on 03-15-2024 TROPONIN-I HS 3 pg/mL Normal 3.0-54.0 [facility] Comment on above: Order Comment: Comme nts: NPO at [place] prior to lipid panel Result Comment: Plea se Note: New Test Units and Gender Specific Reference Ranges. For more information see Policy Stat Procedure Krebs High Sensitivity Troponin (TNIH) and attachments. Performed By: #### L 500.4100, L500.2500, L100.0100 #### [facility] [address] [place], [address] Magnesiumon 03-15-2024 Magnesium [Mass/Vol] 2.0 mg/dL Normal 1.6-2.6 [facility] Comment on above: Performed By: #### L 500.4100, L500.2500, L100.0100 #### [facility] [address] [place], [address] Partial Thromboplast Timeon 03-15-2024 aPTT Coag (Bld) [Time] 26.0 s Normal 24.1-36.2 [facility] Comment on above: Performed By: #### L 500.4100, L500.2500, L100.0100 #### [facility] [address] [place], [address] Phosphoruson 03-15-2024 Phosphate [Mass/Vol] 3.3 mg/dL Normal 2.5-4.9 [facility] Comment on above: Performed By: #### L 500.4100, L500.2500, L100.0100 #### [facility] [address] [place], [address] Prothrombin Time w/INRon INR Coag (PPP) [Relative time] 1.2 {INR} Normal [facility] Comment on above: Performed By: #### L 500.4100, L500.2500, L100.0100 #### [facility] [address] [place], [address] PT Coag (PPP) [Time] 14.9 s Normal 11.7-14.9 [facility] Comment on above: Performed By: #### L 500.4100, L500.2500, L100.0100 #### [facility] [address] [place], [address] STROKE Brain/Head without Co nton 03-15-2024 STROKE Brain/Head without Cont [facility] Imaging Services [address] [place] [address] STROKE Brain/Head without Cont MR#: [id number] Acct: [id number] Name: SLOANE RINALDI Rep #: [id number] : 1950 F 73 From: Charlene Bazan MD PCP: Dr. Bryan Barboza MD Status: REG ER Study: STROKE Brain/Head without Cont Date of Exam: 1 05/16/23 Exam# [id number] Ordering Dr: Reagan Hayes DO ADDENDUM by Dr. Charlene Bazan MD on 03/15/24 at 1805 [id number] EXAM: CT HEAD WITHOUT INTRAVENOUS CONTRAST CLINICAL INDICATION: Neuro deficit, acute, stroke suspected TECHNIQUE: Multiple axial images were obtained of the head without intravenous contrast. This CT exam was performed using one or more of the following dose reduction techniques: automated exposure control, adjustment of the mA and/or kV according to patient size, and/or use of iterative reconstruction technique. RADIATION DOSE: CTDIvol = 44.99 mGy, DLP = 779.74 mGy-cm. COMPARISON: October 15, [address] with CTA. FINDINGS: ARTIFACTS: Mild streak artifacts. BRAIN AND EXTRA-AXIAL SPACES: Mild cerebral volume loss, mild prominent CSF spaces over the frontal convexities. No intra- or extra-axial hemorrhage. No evidence of acute infarct. No intracranial mass or mass effect. There is preservation of the steward/white matter interface. Posterior fossa structures are unremarkable. Basal cisterns are patent. BONES/JOINTS: Unremarkable. No discrete lytic or blastic abnormalities. VASCULATURE: Mild intracranial tibial artery calcifications and moderate intracranial carotid calcifications similar to prior exam. SINUSES: Unremarkable as visualized. Clear. MASTOID AIR CELLS: Unremarkable. Clear. ORBITS: Visualized globes, extraocular muscles, optic nerves and retrobulbar fat appear unremarkable. OTHER FINDINGS: Aspects: 01/14. 03/15/24 180 Date cc: Dr. Bryan Barboza MD; Dr. Reagan Hayes, DO * Signed ADDENDUM by Dr. Charlene Bazan MD on 03/15/[address]/STROKE Brain/Head without Cont IMPRESSION: No acute findings in the head/brain. Minimal chronic parenchymal changes. N.B. : The above Results were Read Back by Charlene Bazan MD to Reagan Hayes MD, and understanding confirmed on 03/15/2024 18:06:55 (ET). Electronically Signed: Charlene Bazan MD at 18:05 EST , 03/15/241812 Date cc: Dr. Bryan Barboza MD; Dr. Reagan Hayes DO * Signed We are attempting to reach an attending provider to discuss findings. An addendum with communication details will be sent when the communication is complete. [id number] EXAM: CT HEAD WITHOUT INTRAVENOUS CONTRAST CLINICAL INDICATION: Neuro deficit, acute, stroke suspected TECHNIQUE: Multiple axial images were obtained of the head without intravenous contrast. This CT exam was performed using one or more of the following dose reduction techniques: automated exposure control, adjustment of the mA and/or kV according to patient size, and/or use of iterative reconstruction technique. RADIATION DOSE: CTDIvol = 44.99 mGy, DLP = 779.74 mGy-cm. COMPARISON: October 15, [address] with CTA. FINDINGS: ARTIFACTS: Mild streak artifacts. BRAIN AND EXTRA-AXIAL SPACES: Mild cerebral volume loss, mild prominent CSF spaces over the frontal convexities. No intra- or extra-axial hemorrhage. No evidence of acute infarct. No intracranial mass or mass effect. There is preservation of the steward/white matter interface. Posterior fossa structures are unremarkable. Basal cisterns are patent. BONES/JOINTS: Unremarkable. No discrete lytic or blastic abnormalities. VASCULATURE: Mild intracranial tibial artery calcifications and moderate intracranial carotid calcifications similar to prior exam. SINUSES: Unremarkable as visualized. Clear. MASTOID AIR CELLS: Unremarkable. Clear. ORBITS: Visualized globes, extraocular muscles, optic nerves and retrobulbar fat appear unremarkable. OTHER FINDINGS: Aspects: 01/14. CT/STROKE Brain/Head without Cont IMPRESSION: No acute findings in the head/brain. Minimal chronic parenchymal changes. Electronically Signed: Charlene Bazan MD at 18:05 EST , CC: Dr. Bryan Barboza MD; Dr. Reagan Hayes DO [place]: Signed Normal [facility] STROKE CTA Head AND Neck W/C onon 03-15-2024 STROKE CTA Head AND Neck W/Con [facility] Imaging Services [facility] [place] [address] STROKE CTA Head AND Neck W/Con MR#: [id number] Acct: [id number] Name: SLOANE RINALDI Rep #: [id number] : 1950 F 73 From: Charlene Bazan MD PCP: Dr. Bryan Barboza MD Status: REG ER Study: STROKE CTA Head AND Neck W/Con Date of Exam: 05/16/23 Exam# [id number] Ordering Dr: Reagan Hayes DO ADDENDUM by Dr. Charlene Bazan MD on 03/15/24 at 1829 [id number] EXAM: CT ANGIOGRAPHY HEAD AND NECK WITH INTRAVENOUS CONTRAST CLINICAL INDICATION: Neuro deficit, acute, stroke suspected TECHNIQUE: [place]/head and neck CT angiography protocol performed with intravenous contrast. This CT exam was performed using one or more of the following dose reduction techniques: automated exposure control, adjustment of the mA and/or kV according to patient size, and/or use of iterative reconstruction technique. MIP reconstructed images were created and reviewed. CONTRAST: IV 100mL [id number] RADIATION DOSE: CTDIvol = 18.38 mGy, DLP = 734.46 mGy-cm COMPARISON: October 15, 2022. FINDINGS: HEAD: RIGHT ANTERIOR CEREBRAL ARTERY: Unremarkable. No occlusion or significant stenosis. Anterior communicating artery is present. No aneurysm. RIGHT MIDDLE CEREBRAL ARTERY: Unremarkable. No occlusion or significant stenosis. No aneurysm. RIGHT POSTERIOR CEREBRAL ARTERY: Unremarkable. No occlusion or significant stenosis. No aneurysm. RIGHT INTRACRANIAL INTERNAL CAROTID ARTERY: Unremarkable. No significant stenosis. No dissection or occlusion. RIGHT INTRACRANIAL VERTEBRAL ARTERY: Unremarkable. No significant stenosis. No dissection or occlusion. LEFT ANTERIOR CEREBRAL ARTERY: Unremarkable. No occlusion or significant stenosis. No aneurysm. LEFT MIDDLE CEREBRAL ARTERY: Unremarkable. No occlusion or significant stenosis. No aneurysm. LEFT POSTERIOR CEREBRAL ARTERY: Small patent left posterior communicating artery contributes to the left P2 segment. No occlusion or significant stenosis. No aneurysm. LEFT INTRACRANIAL INTERNAL CAROTID ARTERY: Unremarkable. No significant stenosis. No dissection or occlusion. LEFT INTRACRANIAL VERTEBRAL ARTERY: Unremarkable. No significant stenosis. No dissection or occlusion. BASILAR ARTERY: Unremarkable. No occlusion or significant stenosis. No aneurysm. OTHER VASCULATURE: No vascular malformation. The deep veins and dural venous sinuses are enhanced. NECK: RIGHT COMMON CAROTID ARTERY: Unremarkable. No significant stenosis. No dissection or occlusion. RIGHT EXTRACRANIAL INTERNAL CAROTID ARTERY: There is mild mixed density plaque with estimated less than 30% stenosis of proximal right ICA. No dissection or occlusion. RIGHT EXTERNAL CAROTID ARTERY: Unremarkable. No occlusion. RIGHT EXTRACRANIAL VERTEBRAL ARTERY: Unremarkable. No significant stenosis. No dissection or occlusion. LEFT COMMON CAROTID ARTERY: Unremarkable. No significant stenosis. No dissection or occlusion. LEFT EXTRACRANIAL INTERNAL CAROTID ARTERY: Mild calcified plaque with less than 30% estimated narrowing of left ICA. LEFT EXTERNAL CAROTID ARTERY: Unremarkable. No occlusion. LEFT EXTRACRANIAL VERTEBRAL ARTERY: Unremarkable. No significant stenosis. No dissection or occlusion. ARCH, BRACHIOCEPHALIC AND SUBCLAVIAN ARTERIES: Unremarkable as visualized with the exception of slight calcified plaque of the arch and proximal great vessels. No occlusion or significant stenosis. LUNG APICES: Unremarkable as visualized. HEAD and NECK: BONES/JOINTS: Marked disc space narrowing at C6-7 minimal spondylosis, no significant spinal stenosis. There appears to be at least mild periodontal disease, lucency around the 2 left first maxillary molar roots. No discrete lytic or blastic abnormalities. SOFT TISSUES: Unremarkable. CAROTID STENOSIS REFERENCE USING NASCET CRITERIA: % ICA stenosis = (1 - narrowest ICA diameter/diameter of distal cervical ICA) x 100. Mild - <50% stenosis. Moderate - 50-69% stenosis. Severe - 70-94% stenosis. Near occlusion - 95-99% stenosis. Occluded - 100% stenosis. 03/15/241828 Date cc: Dr. Bryan Barboza MD; Dr. Reagan Hayes DO * Signed ADDENDUM by Dr. Charlene Bazan MD on 03/15/[address]/STROKE CTA Head AND Neck W/Con IMPRESSION: No acute findings in the arteries of the head and neck. No large vessel occlusion. Mild plaque of the bilateral cervical ICAs, no significant stenosis. Mild calcifications of intracranial ICAs, no significant stenosis. N.B. : The above Results were Read Back by Charlene Bazan MD to Reagan Hayes DO, and understanding confirmed on 03/15/2024 18:25:55 (ET). Electronically Signed: Charlene Bazan MD at 18:29 EST Reading Location ID and Sta (more content not included)... Normal [facility] Thyroid Stim Hormone (TSH)on 03-15-2024 TSH 1.170 uIU/mL Normal 0.358-3.740 [facility] Comment on above: Performed By: #### L 500.4100, L500.2500, L100.0100 #### [facility] [address] [place], [address] 25-hydroxyvitamin D3 [Mass/V ol]on 10-24-2023 Interpretation and review of laboratory results Normal [facility] Therapy is based on measurement of Total 25-OHD with the following classification levels: Less than 20 ng/mL: Indicative of Vit D deficiency 20-30 ng/mL: Suggests Vit D insufficiency Optimal: Greater than or equal to 30 ng/mL Test performed by [employer] Immunoassay, measuring Total Vitamin D, not individual fractions. [facility] [place] CBC panel Auto (Bld)Ordered By: Estefani Cohen on 10-24-2023 Erythrocyte distribution width (RBC) [Ratio] 12.5 % 11.5 - 15.0 % [place] Hematocrit (Bld) [Volume fraction] 41.1 % 35.0 - 47.0 % [place] Hemoglobin (Bld) [Mass/Vol] 14.2 g/dL 11.7 - 16.0 g/dL [place] Interpretation and review of laboratory results Normal [place] MCH (RBC) [Entitic mass] 31.8 pg 26.0 - 34.0 pg [place] MCHC (RBC) [Mass/Vol] 34.5 % 30.5 - 36.0 % [place] MCV (RBC) [Entitic vol] 92.2 fL 77.0 - 99.0 fL [facility] Platelet mean volume (Bld) [Entitic vol] 9.5 fL 9.0 - 12.7 fL [facility] Comment on above: MPV is a calculated measurement using platelet volume ratio Platelets (Bld) [#/Vol] 246 10*3/uL 140 - 440 10*3/uL [place] RBC (Bld) [#/Vol] 4.46 10*6/uL 3.80 - 5.2 0 10*6/uL [facility] WBC (Bld) [#/Vol] 5.7 10*3/uL 3.6 - 10.7 10*3/uL [facility] Cobalamin (Vitamin B12) [Mas s/Vol]on 10-24-2023 Interpretation and review of laboratory results Normal [facility] Comprehensive metabolic 1998 panelon 10-24-2023 Albumin [Mass/Vol] 4.1 g/dL 3.5 - 5.0 g/dL [facility] ALP [Catalytic activity/Vol] 68 U/L 38 - 126 U/L [facility] ALT [Catalytic activity/Vol] 19 U/L 0 - 34 U/L [facility] Anion gap [Moles/Vol] 6 mmol/L 3 - 13 mmol/L [facility] AST [Catalytic activity/Vol] 23 U/L 15 - 46 U/L [facility] Bilirubin [Mass/Vol] 1.1 mg/dL 0.2 - 1 .3 mg/dL [facility] Calcium [Mass/Vol] 10.0 mg/dL 8.4 - 10. 4 mg/dL [facility] Chloride [Moles/Vol] 104 mmol/L 98 - 10 7 mmol/L [facility] CO2 [Moles/Vol] 29 mmol/L 22 - 30 mmol/L [facility] Creatinine [Mass/Vol] 0.84 mg/dL 0.52 - 1.04 mg/dL [facility] GFR/1.73 sq M.predicted MDRD (S/P/Bld) [Vol rate/Area] 74.4 mL/min/{1.73_m2} - PINF [facility] Comment on above: Calculation based on the Chronic Kidney Disease Epidemiology Collaboration (CKD-EPI) equation refit without adjustment for race Glucose [Mass/Vol] 93 mg/dL 70 - 100 mg/dL [facility] Potassium [Moles/Vol] 4.6 mmol/L 3.5 - 5.1 mmol/L [facility] Protein [Mass/Vol] 7.5 g/dL 6.3 - 8.2 g/dL [facility] Sodium [Moles/Vol] 139 mmol/L 135 - 145 mmol/L [facility] Urea nitrogen [Mass/Vol] 17 mg/dL 7 - 17 mg/dL [facility] Ferritinon 10-24-2023 Ferritin [Mass/Vol] 148 ng/mL 11 - 264 ng/mL [facility] Ferritin [Mass/Vol]on 2023 Interpretation and review of laboratory results Normal [facility] Folateon 10-24-2023 Folate [Mass/Vol] ng/mL 2.9 - PINF ng/mL [facility] Folate [Mass/Vol]on 10-24-19 Interpretation and review of laboratory results Normal [facility] Iron and Iron binding capaci ty panelon 10-24-2023 Iron [Mass/Vol] 108 ug/dL 37 - 170 ug/dL [facility] Lipid 1996 panelon Cholesterol [Mass/Vol] 209 mg/dL High NINF - 200 mg/dL [facility] Cholesterol in HDL [Mass/Vol] 47 mg/dL 40 - 60 mg/dL [facility] Cholesterol in LDL [Mass/Vol] 124 mg/dL High 0 - <100 [facility] Cholesterol.total/Yaima sterol in HDL [Mass ratio] 4 {ratio} [facility] Comment on above: Ref Range: < 3 Low Risk for CHD 3-6 Mod Risk for CHD > 6 High Risk for CHD Interpretation and review of laboratory results Abnormal [facility] Triglyceride [Mass/Vol] 188 mg/dL High NINF - 150 mg/dL [facility] Magnesiumon 10-24-2023 Magnesium [Mass/Vol] 2.2 mg/dL 1.6 - 2 .3 mg/dL [facility] No Panel Informationon 10-23 Interpretation and review of laboratory results Normal [facility] Vitamin B12on 10-24-2023 Cobalamin (Vitamin B12) [Mass/Vol] 914 pg/mL 239 - 931 pg/mL [facility] Vitamin D Deficiency Screeni ng (Vit D 25)on 10-24-2023 25-hydroxyvitamin D3 [Mass/Vol] 55 ng/mL 30 - 100 ng/mL [facility] CBC panel Auto (Bld)Ordered By: Rao Correa on 08-09-2023 Erythrocyte distribution width (RBC) [Ratio] 12.9 % 11.5 - 15.0 % [facility] Hematocrit (Bld) [Volume fraction] 40.8 % 35.0 - 47.0 % [facility] Hemoglobin (Bld) [Mass/Vol] 14.0 g/dL 11.7 - 16.0 g/dL [facility] Interpretation and review of laboratory results Normal [facility] MCH (RBC) [Entitic mass] 31.4 pg 26.0 - 34.0 pg [facility] MCHC (RBC) [Mass/Vol] 34.3 % 30.5 - 36.0 % [facility] MCV (RBC) [Entitic vol] 91.5 fL 77.0 - 99.0 fL [facility] Platelet mean volume (Bld) [Entitic vol] 9.6 fL 9.0 - 12.7 fL [facility] Comment on above: MPV is a calculated measurement using platelet volume ratio Platelets (Bld) [#/Vol] 244 10*3/uL 140 - 440 10*3/uL [facility] RBC (Bld) [#/Vol] 4.46 10*6/uL 3.80 - 5.2 0 10*6/uL [facility] WBC (Bld) [#/Vol] 5.4 10*3/uL 3.6 - 10.7 10*3/uL [facility] Comprehensive metabolic 1998 panelon 08-09-2023 Albumin [Mass/Vol] 3.8 g/dL 3.5 - 5.0 g/dL [facility] ALP [Catalytic activity/Vol] 64 U/L 38 - 126 U/L [facility] ALT [Catalytic activity/Vol] 24 U/L 0 - 34 U/L [facility] Anion gap [Moles/Vol] 7 mmol/L 3 - 13 mmol/L [facility] AST [Catalytic activity/Vol] 25 U/L 15 - 46 U/L [facility] Bilirubin [Mass/Vol] 0.9 mg/dL 0.2 - 1 .3 mg/dL [facility] Calcium [Mass/Vol] 9.8 mg/dL 8.4 - 10. 4 mg/dL [facility] Chloride [Moles/Vol] 104 mmol/L 98 - 10 7 mmol/L [facility] CO2 [Moles/Vol] 28 mmol/L 22 - 30 mmol/L [facility] Creatinine [Mass/Vol] 0.85 mg/dL 0.52 - 1.04 mg/dL [facility] GFR/1.73 sq M.predicted MDRD (S/P/Bld) [Vol rate/Area] 73.4 mL/min/{1.73_m2} - PINF [facility] Comment on above: Calculation based on the Chronic Kidney Disease Epidemiology Collaboration (CKD-EPI) equation refit without adjustment for race Glucose [Mass/Vol] 98 mg/dL 70 - 100 mg/dL [facility] Interpretation and review of laboratory results Abnormal [facility] Potassium [Moles/Vol] 4.4 mmol/L 3.5 - 5.1 mmol/L [facility] Protein [Mass/Vol] 7.4 g/dL 6.3 - 8.2 g/dL [facility] Sodium [Moles/Vol] 140 mmol/L 135 - 145 mmol/L [facility] Urea nitrogen [Mass/Vol] 18 mg/dL High 7 - 17 mg/dL [facility] Ferritinon 08-09-2023 Ferritin [Mass/Vol] 159 ng/mL 11 - 264 ng/mL [facility] Folateon 08-09-2023 Folate [Mass/Vol] ng/mL 2.9 - PINF ng/mL [facility] Iron and Iron binding capaci ty panelon 08-09-2023 Iron [Mass/Vol] 111 ug/dL 37 - 170 ug/dL [facility] Magnesiumon 08-09-2023 Magnesium [Mass/Vol] 2.2 mg/dL 1.6 - 2 .3 mg/dL [facility] No Panel Informationon 08-08 Interpretation and review of laboratory results Normal [facility] Vitamin B12on 08-09-2023 Cobalamin (Vitamin B12) [Mass/Vol] 837 pg/mL 239 - 931 pg/mL [facility] CBC panel Auto (Bld)Ordered By: Gina Spangler on 06-11-2023 Erythrocyte distribution width (RBC) [Ratio] 13.9 % 11.5 - 15.0 % [facility] Hematocrit (Bld) [Volume fraction] 41.2 % 35.0 - 47.0 % [facility] Hemoglobin (Bld) [Mass/Vol] 14.1 g/dL 11.7 - 16.0 g/dL [facility] Interpretation and review of laboratory results Normal [facility] MCH (RBC) [Entitic mass] 31.0 pg 26.0 - 34.0 pg [facility] MCHC (RBC) [Mass/Vol] 34.2 % 30.5 - 36.0 % [facility] MCV (RBC) [Entitic vol] 90.5 fL 77.0 - 99.0 fL [facility] Platelet mean volume (Bld) [Entitic vol] 10.3 fL 9.0 - 12.7 fL [facility] Comment on above: MPV is a calculated measurement using platelet volume ratio Platelets (Bld) [#/Vol] 209 10*3/uL 140 - 440 10*3/uL [facility] RBC (Bld) [#/Vol] 4.55 10*6/uL 3.80 - 5.2 0 10*6/uL [facility] WBC (Bld) [#/Vol] 5.7 10*3/uL 3.6 - 10.7 10*3/uL [facility] Comprehensive metabolic 1998 panelon 06-11-2023 Albumin [Mass/Vol] 3.9 g/dL 3.5 - 5.0 g/dL [facility] ALP [Catalytic activity/Vol] 66 U/L 38 - 126 U/L [facility] ALT [Catalytic activity/Vol] 27 U/L 0 - 34 U/L [facility] Anion gap [Moles/Vol] 8 mmol/L 3 - 13 mmol/L [facility] AST [Catalytic activity/Vol] 36 U/L 15 - 46 U/L [facility] Bilirubin [Mass/Vol] 1.1 mg/dL 0.2 - 1 .3 mg/dL [facility] Calcium [Mass/Vol] 9.8 mg/dL 8.4 - 10. 4 mg/dL [facility] Chloride [Moles/Vol] 104 mmol/L 98 - 10 7 mmol/L [facility] CO2 [Moles/Vol] 25 mmol/L 22 - 30 mmol/L [facility] Creatinine [Mass/Vol] 0.75 mg/dL 0.52 - 1.04 mg/dL [facility] GFR/1.73 sq M.predicted MDRD (S/P/Bld) [Vol rate/Area] 85.2 mL/min/{1.73_m2} - PINF [facility] Comment on above: Calculation based on the Chronic Kidney Disease Epidemiology Collaboration (CKD-EPI) equation refit without adjustment for race Glucose [Mass/Vol] 95 mg/dL 70 - 100 mg/dL [facility] Interpretation and review of laboratory results Abnormal [facility] Potassium [Moles/Vol] 3.8 mmol/L 3.5 - 5.1 mmol/L [facility] Protein [Mass/Vol] 7.3 g/dL 6.3 - 8.2 g/dL [facility] Sodium [Moles/Vol] 137 mmol/L 135 - 145 mmol/L [facility] Urea nitrogen [Mass/Vol] 21 mg/dL High 7 - 17 mg/dL [facility] Ferritinon 06-11-2023 Ferritin [Mass/Vol] 162 ng/mL 11 - 264 ng/mL [facility] Ferritin [Mass/Vol]on 2023 Interpretation and review of laboratory results Normal [facility] Folateon 06-11-2023 Folate [Mass/Vol] 17.1 ng/mL 2.9 - PINF ng/mL [facility] Iron and Iron binding capaci ty panelon 06-11-2023 Iron [Mass/Vol] 101 ug/dL 37 - 170 ug/dL [facility] Magnesiumon 06-11-2023 Magnesium [Mass/Vol] 1.7 mg/dL 1.6 - 2 .3 mg/dL [facility] No Panel Informationon 06-10 Interpretation and review of laboratory results Normal [facility] Interpretation and review of laboratory results Normal [facility] Vitamin B12on 06-11-2023 Cobalamin (Vitamin B12) [Mass/Vol] 871 pg/mL 239 - 931 pg/mL [facility] Basic metabolic 1998 panelon 05-15-2023 Anion gap [Moles/Vol] 7 mmol/L 3 - 13 mmol/L [facility] Calcium [Mass/Vol] 8.6 mg/dL 8.4 - 10. 4 mg/dL [facility] Chloride [Moles/Vol] 102 mmol/L 98 - 10 7 mmol/L [facility] CO2 [Moles/Vol] 24 mmol/L 22 - 30 mmol/L [facility] Creatinine [Mass/Vol] 0.83 mg/dL 0.52 - 1.04 mg/dL [facility] GFR/1.73 sq M.predicted MDRD (S/P/Bld) [Vol rate/Area] 75.5 mL/min/{1.73_m2} - PINF [facility] Comment on above: Calculation based on the Chronic Kidney Disease Epidemiology Collaboration (CKD-EPI) equation refit without adjustment for race Glucose [Mass/Vol] 180 mg/dL High 70 - 100 mg/dL [facility] Interpretation and review of laboratory results Abnormal [facility] Potassium [Moles/Vol] 4.5 mmol/L 3.5 - 5.1 mmol/L [facility] Sodium [Moles/Vol] 133 mmol/L Low 135 - 145 mmol/L [facility] Urea nitrogen [Mass/Vol] 22 mg/dL High 7 - 17 mg/dL [facility] CBC panel Auto (Bld)on 05-15 Erythrocyte distribution width (RBC) [Ratio] 12.8 % 11.5 - 14.5 % [facility] Hematocrit (Bld) [Volume fraction] 37.4 % 35.0 - 47.0 % [facility] Hemoglobin (Bld) [Mass/Vol] 12.9 g/dL 11.7 - 16.0 g/dL [facility] Interpretation and review of laboratory results Normal [facility] MCH (RBC) [Entitic mass] 31.2 pg 26.0 - 34.0 pg [facility] MCHC (RBC) [Mass/Vol] 34.5 % 32.0 - 36.0 % [facility] MCV (RBC) [Entitic vol] 90.4 fL 80.0 - 98.0 fL [facility] Platelet mean volume (Bld) [Entitic vol] 8.1 fL 7.4 - 12.4 fL [facility] Platelets (Bld) [#/Vol] 227 10*3/uL 140 - 440 10*3/uL [facility] RBC (Bld) [#/Vol] 4.14 10*6/uL 3.8 - 5.20 10*6/uL [facility] WBC (Bld) [#/Vol] 10.1 10*3/uL 3.6 - 10.7 10*3/uL [facility] Basic metabolic 1998 panelon 05-14-2023 Anion gap [Moles/Vol] 12 mmol/L 3 - 13 mmol/L [facility] Calcium [Mass/Vol] 8.9 mg/dL 8.4 - 10. 4 mg/dL [facility] Chloride [Moles/Vol] 102 mmol/L 98 - 10 7 mmol/L [facility] CO2 [Moles/Vol] 21 mmol/L Low 22 - 30 mmol/L [facility] Creatinine [Mass/Vol] 0.76 mg/dL 0.52 - 1.04 mg/dL [facility] GFR/1.73 sq M.predicted MDRD (S/P/Bld) [Vol rate/Area] 83.9 mL/min/{1.73_m2} - PINF [facility] Comment on above: Calculation based on the Chronic Kidney Disease Epidemiology Collaboration (CKD-EPI) equation refit without adjustment for race Glucose [Mass/Vol] 118 mg/dL High 70 - 100 mg/dL [facility] Interpretation and review of laboratory results Abnormal [facility] Potassium [Moles/Vol] 4.3 mmol/L 3.5 - 5.1 mmol/L [facility] Sodium [Moles/Vol] 135 mmol/L 135 - 145 mmol/L [facility] Urea nitrogen [Mass/Vol] 18 mg/dL High 7 - 17 mg/dL [facility] Slightly Hemolyzed. Interpret POTASSIUM with caution. [facility] Hemoglobin (Bld) [Mass/Vol]o n 05-14-2023 Hematocrit (Bld) [Volume fraction] 40.3 % 35.0 - 47.0 % [facility] Interpretation and review of laboratory results Normal [facility] Laboratory - Hematology and Cell countson 05-14-2023 Hemoglobin (Bld) [Mass/Vol] 13.5 g/dL 11.7 - 16.0 g/dL [facility] No Panel Informationon 03-26 Sinus Rhythm -Right bundle branch block. ABNORMAL [facility] No Panel InformationOrdered By: Alexandr Urrutia on 03-26-2023 [place] [facility] Work Phone: 25-hydroxyvitamin D3 [Mass/V ol]on 03-20-2023 Interpretation and review of laboratory results Abnormal [facility] Therapy is based on measurement of Total 25-OHD with the following classification levels: Less than 20 ng/mL: Indicative of Vit D deficiency 20-30 ng/mL: Suggests Vit D insufficiency Optimal: Greater than or equal to 30 ng/mL Test performed by [employer] Immunoassay, measuring Total Vitamin D, not individual fractions. [facility] Vitamin D Deficiency Screeni ng (Vit D 25)on 03-20-2023 25-hydroxyvitamin D3 [Mass/Vol] 29 ng/mL Low 30 - 100 ng/mL [facility] XR Abdomen and RF Gastrointe stinal tract upper W contrast Jc 02-24-2023 Questionable small gastric polyp or ulceration. Tertiary waves without dysmotility. Small hiatal hernia without gastroesophageal reflux. Large diverticulum of the proximal duodenum. Report Dictated on Electronically Signed By: David Arzola MD Electronically Signed Date/Time: 02/24/2023 2:18 PM EST [facility] Patient Name: SLOANE RINALDI : 1950 Exam Date/Time: 02/24/2023 10:29 Procedure: FL UPPER GI WITH KUB Ordering Provider: RAGSDALE ASHLEY Reason For Exam: BARIATRIC SURGERY STATUS AIR CONTRAST UGI SERIES CLINICAL INDICATIONS: Preop for bariatric surgery. COMPARISON: None. FLUOROSCOPY DOSE: Ka,r= 141.7 mGy TECHNIQUE: Biphasic exam was performed with barium and air. FINDINGS: Barium and air are administered. The esophagus is studied in the upright as well as the horizontal positions. The esophagus is normal in course and caliber. The swallowing mechanism demonstrates tertiary waves without dysmotility. There is a small hiatal hernia demonstrated. No gastroesophageal reflux was demonstrated. Barium flows freely from the esophagus into the stomach. Within the gastric body is small defect questionably small polyp or ulceration. The proximal duodenum demonstrates a large diverticulum. The visualized proximal jejunum is remarkable. [facility] David Arzola MD - 02/24/2023 Patient Name: SLOANE RINALDI : 1950 Exam Date/Time: 02/24/2023 10:29 Procedure: FL UPPER GI WITH KUB Ordering Provider: RAGSDALE ASHLEY Reason For Exam: BARIATRIC SURGERY STATUS AIR CONTRAST UGI SERIES CLINICAL INDICATIONS: Preop for bariatric surgery. COMPARISON: None. FLUOROSCOPY DOSE: Ka,r= 141.7 mGy TECHNIQUE: Biphasic exam was performed with barium and air. FINDINGS: Barium and air are administered. The esophagus is studied in the upright as well as the horizontal positions. The esophagus is normal in course and caliber. The swallowing mechanism demonstrates tertiary waves without dysmotility. There is a small hiatal hernia demonstrated. No gastroesophageal reflux was demonstrated. Barium flows freely from the esophagus into the stomach. Within the gastric body is small defect questionably small polyp or ulceration. The proximal duodenum demonstrates a large diverticulum. The visualized proximal jejunum is remarkable. IMPRESSION: Questionable small gastric polyp or ulceration. Tertiary waves without dysmotility. Small hiatal hernia without gastroesophageal reflux. Large diverticulum of the proximal duodenum. Report Dictated on Electronically Signed By: David Arzola MD Electronically Signed Date/Time: 02/24/2023 2:18 PM EST [facility] Radiology Study observation (narrative) [place] [facility] XR Abdomen and RF Gastrointe stinal tract upper W contrast POOrdered By: David Arzola on 02-24-2023 [place] Work Phone: Laboratory - Chemistry and C hemistry - challengeon 02-21-2023 Thiamine pyrophosphate (Bld) [Moles/Vol] 97 nmol/L 70 - 180 nmol/L [facility] Comment on above: INTERPRETIVE INFORMA TION: Vitamin B1, Whole Blood This assay measures the concentration of thiamine diphosphate (TDP), the primary active form of vitamin B1. Approximately 90 percent of vitamin B1 present in whole blood is TDP. Thiamine and thiamine monophosphate, which comprise the remaining 10 percent, are not measured. This test was developed and its performance characteristics determined by [facility]. It has not been cleared or approved by the [place] Food and Drug Administration. This test was performed in a CLIA certified laboratory and is intended for clinical purposes. Performed By: [facility] [address] [place] [id number] [employer] Director: Stew Alatorre MD, PhD CLIA Number: [id number] No Panel Informationon 02-21 [facility] Laboratory - Drug toxicology on 02-19-2023 Zinc [Mass/Vol] 69.9 ug/dL 60.0 - 120.0 ug/dL [facility] Comment on above: INTERPRETIVE INFORMA TION: Zinc, Serum or Plasma Elevated results may be due to skin or collection-related contamination, including the use of a noncertified metal-free collection/transport tube. If contamination concerns exist due to elevated levels of serum/plasma zinc, confirmation with a second specimen collected in a certified metal-free tube is recommended. Circulating zinc concentrations are dependent on albumin status and are depressed with malnutrition. Zinc may also be lowered with infection, inflammation, stress, oral contraceptives, and . Zinc may be elevated with zinc supplementation or fasting. Elevated zinc concentrations may interfere with copper absorption. This test was developed and its performance characteristics determined by [facility]. It has not been cleared or approved by the [place] Food and Drug Administration. This test was performed in a CLIA certified laboratory and is intended for clinical purposes. Performed By: [facility] [address] [place] [id number] [employer] Director: Stew Alatorre MD, PhD CLIA Number: [id number] No Panel Informationon 02-19 [facility] 25-hydroxyvitamin D3 [Mass/V ol]on 02-17-2023 Interpretation and review of laboratory results Normal [facility] Therapy is based on measurement of Total 25-OHD with the following classification levels: Less than 20 ng/mL: Indicative of Vit D deficiency 20-30 ng/mL: Suggests Vit D insufficiency Optimal: Greater than or equal to 30 ng/mL Test performed by [employer] Immunoassay, measuring Total Vitamin D, not individual fractions. [facility] Absolute lymphocyte countOrd ered By: Shanda Foote on 02-17-2023 Lymphocytes Auto (Unsp spec) [#/Vol] 1.94 10*3/uL 0.83-4.51 [facility] Amorphous sediment detection in urine sediment by light microscopyOrdered By: Shanda Foote on 02-17-2023 Amorphous sediment LM Ql (Urine sed) 1+ URATE [facility] Basophil percentageOrdered B y: Shanda Foote on 02-17-2023 Basophil percentage 10-25 SEEN /hpf 0-5 [facility] Basophils/100 WBC (Bld) 0.8 % 0-1 [facility] Chloride [Moles/Vol] 106 mmol/L 98-107 [facility] Eosinophils/100 WBC (Bld) 2.2 % 0-5 [facility] Glucose [Mass/Vol] 142 mg/dL 74-106 [facility] Comment on above: Fasting Glucose resu lt greater than or equal to 126 mg/dL suggests DIABETES MELLITUS per A.D.A. criteria. Neutrophils (Bld) [#/Vol] 3.5 10*3/uL 2.0-7.7 [facility] Neutrophils/100 WBC (Bld) 55.1 % 47-70 [facility] Potassium [Moles/Vol] 3.5 mmol/L 3.5-5.1 [facility] Sodium [Moles/Vol] 141 mmol/L 136-145 [facility] WBC (Bld) [#/Vol] 6.4 10*3/uL 4.4-11.0 [facility] Bilirubin Test strip Ql (U)O rdered By: Shanda Foote on 02-17-2023 Bilirubin Ql (U) Negative Negative [facility] Blood erythrocytes count (nu mber/volume)Ordered By: Shanda Foote on 02-17-2023 RBC (Bld) [#/Vol] 4.62 10*6/uL 4.2-5.4 [facility] Blood hemoglobin measurement (mass/volume)Ordered By: Shanda Foote on 02-17-2023 Hemoglobin (Bld) [Mass/Vol] 13.9 g/dL 12.0-15.0 [facility] Blood lymphocytes/100 leukoc ytesOrdered By: Shanda Foote on 02-17-2023 Lymphocytes/100 WBC (Bld) 30.2 % 19-41 [facility] Blood monocytes/100 leukocyt esOrdered By: Shanda Foote on 02-17-2023 Monocytes/100 WBC (Bld) 11.4 % 0-10 [facility] Blood platelet mean volumeOr dered By: Shanda Foote on 02-17-2023 Platelet mean volume (Bld) [Entitic vol] 9.8 fL 6.2-12.0 [facility] CBC panel Auto (Bld)Ordered By: Niki Gill on 02-17-2023 Erythrocyte distribution width (RBC) [Ratio] 13.1 % 11.5 - 14.5 % [facility] Hematocrit (Bld) [Volume fraction] 43.4 % 35.0 - 47.0 % [facility] Hemoglobin (Bld) [Mass/Vol] 14.7 g/dL 11.7 - 16.0 g/dL [facility] Interpretation and review of laboratory results Normal [facility] MCH (RBC) [Entitic mass] 31.4 pg 26.0 - 34.0 pg [facility] MCHC (RBC) [Mass/Vol] 33.9 % 32.0 - 36.0 % [facility] MCV (RBC) [Entitic vol] 92.7 fL 80.0 - 98.0 fL [facility] Platelet mean volume (Bld) [Entitic vol] 9.4 fL 7.4 - 12.4 fL [facility] Comment on above: MPV is a calculated measurement using platelet volume ratio Platelets (Bld) [#/Vol] 267 10*3/uL 140 - 440 10*3/uL [facility] RBC (Bld) [#/Vol] 4.68 10*6/uL 3.8 - 5.20 10*6/uL [facility] WBC (Bld) [#/Vol] 6.5 10*3/uL 3.6 - 10.7 10*3/uL [facility] Comprehensive metabolic 1998 panelon 02-17-2023 Albumin [Mass/Vol] 3.9 g/dL 3.5 - 5.0 g/dL [facility] ALP [Catalytic activity/Vol] 64 U/L 38 - 126 U/L [facility] ALT [Catalytic activity/Vol] 32 U/L 0 - 34 U/L [facility] Anion gap [Moles/Vol] 9 mmol/L 3 - 13 mmol/L [facility] AST [Catalytic activity/Vol] 28 U/L 15 - 46 U/L [facility] Bilirubin [Mass/Vol] 0.8 mg/dL 0.2 - 1 .3 mg/dL [facility] Calcium [Mass/Vol] 9.4 mg/dL 8.4 - 10. 4 mg/dL [facility] Chloride [Moles/Vol] 108 mmol/L High 98 - 10 7 mmol/L [facility] CO2 [Moles/Vol] 24 mmol/L 22 - 30 mmol/L [facility] Creatinine [Mass/Vol] 0.83 mg/dL 0.52 - 1.04 mg/dL [facility] GFR/1.73 sq M.predicted MDRD (S/P/Bld) [Vol rate/Area] 75.5 mL/min/{1.73_m2} - PINF [facility] Comment on above: Calculation based on the Chronic Kidney Disease Epidemiology Collaboration (CKD-EPI) equation refit without adjustment for race Glucose [Mass/Vol] 153 mg/dL High 70 - 100 mg/dL [facility] Potassium [Moles/Vol] 4.0 mmol/L 3.5 - 5.1 mmol/L [facility] Protein [Mass/Vol] 7.7 g/dL 6.3 - 8.2 g/dL [facility] Sodium [Moles/Vol] 140 mmol/L 135 - 145 mmol/L [facility] Urea nitrogen [Mass/Vol] 24 mg/dL High 7 - 17 mg/dL [facility] Determination of erythrocyte mean corpuscular volume (MCV)Ordered By: Shanda Foote on 02-17-2023 MCV (RBC) [Entitic vol] 92.2 fL 81-99 [facility] Ferritin [Mass/Vol]on 2022 Interpretation and review of laboratory results Normal [facility] Hematocrit Auto (Bld) [Volum e fraction]Ordered By: Shanda Foote on 02-17-2023 Hematocrit (Bld) [Volume fraction] 42.6 % 37-47 [facility] Iron and Iron binding capaci ty panelon 02-17-2023 Interpretation and review of laboratory results Normal [facility] Iron [Mass/Vol] 113 ug/dL 37 - 170 ug/dL [facility] Ketones Test strip Ql (U)Ord ered By: Shanda Foote on 02-17-2023 Ketones Ql (U) Negative Negative [facility] Laboratory - Chemistry and C hemistry - challengeOrdered By: Shanda Foote on 02-17-2023 CO2 [Moles/Vol] 28.0 mmol/L 21.0-32.0 [facility] Urea nitrogen/Creatinine [Mass ratio] 26.3 mg/mg 10-20 [facility] Laboratory - Chemistry and C hemistry - challengeon 02-17-2023 25-hydroxyvitamin D3 [Mass/Vol] 37 ng/mL 30 - 100 ng/mL [facility] Cobalamin (Vitamin B12) [Mass/Vol] 471 pg/mL 239 - 931 pg/mL [facility] Folate [Mass/Vol] 17.4 ng/mL 2.9 - PINF ng/mL [facility] Ferritin [Mass/Vol] 88 ng/mL 11 - 264 ng/mL [facility] TSH Qn 1.145 m[IU]/L [facility] Magnesium [Mass/Vol] 1.8 mg/dL 1.6 - 2 .3 mg/dL [facility] Average glucose Estimated from glycated hemoglobin (Bld) [Mass/Vol] 117 mg/dL [facility] Laboratory - Hematology and Cell countsOrdered By: Shanda Foote on 02-17-2023 Erythrocyte distribution width (RBC) [Entitic vol] 43.8 fL 35.1-43.9 [facility] Erythrocyte distribution width (RBC) [Ratio] 13.0 % 11.6-14.6 [facility] Immature granulocytes/100 WBC (Bld) 0.300 % 0.0-0.9 [facility] Comment on above: IG% - Immature Granu locytes (promyelocytes, myelocytes and metamyelocytes) > 1% indicates that a LEFT SHIFT is Present. MCH (RBC) [Entitic mass] 30.1 pg 27.0-32.0 [facility] Nucleated RBC/100 WBC (Bld) [Ratio] 0 % 0-5 [facility] Laboratory - Hematology and Cell countson 02-17-2023 HbA1c (Bld) [Mass fraction] 5.7 % High NINF - 5.7 % [facility] Comment on above: Normal less than 5.7 % Prediabetes 5.7% to 6.4% Diabetes 6.5% or higher --HgbA1C levels may not be accurate in patients who have renal disease, received recent blood transfusions, are anemic, or who have dyshemoglobinemia. Lipid 1996 panelon 3 Cholesterol [Mass/Vol] 201 mg/dL High NINF - 200 mg/dL [facility] Cholesterol in HDL [Mass/Vol] 42 mg/dL 40 - 60 mg/dL [facility] Cholesterol in LDL [Mass/Vol] 123 mg/dL High 0 - <100 [facility] Cholesterol.total/Yaima sterol in HDL [Mass ratio] 5 {ratio} [facility] Comment on above: Ref Range: < 3 Low Risk for CHD 3-6 Mod Risk for CHD > 6 High Risk for CHD Triglyceride [Mass/Vol] 182 mg/dL High NINF - 150 mg/dL [facility] MCHC Auto (RBC) [Mass/Vol]Or dered By: Shanda Foote on 02-17-2023 MCHC (RBC) [Mass/Vol] 32.6 g/dL 32-36 [facility] Magnesium [Mass/Vol]on 02-17 Interpretation and review of laboratory results Normal [facility] Mucus LM Ql (Urine sed)Order ed By: Shanda Foote on 02-17-2023 Mucus Ql (Urine sed) 0 SEEN /hpf [facility] Nitrite Test strip Ql (U)Ord ered By: Shanda Foote on 02-17-2023 Nitrite Ql (U) Negative Negative [facility] No Panel InformationOrdered By: Shanda Foote on 02-17-2023 Estimated Creatinine Clearance Calc 46.91 ml/min [facility] Estimated GFR (MDRD) Amer 78 mL/min >60 [facility] Comment on above: GFR Calc Estimated GFR (MDRD) Non-Af Amer 64 mL/min >60 [facility] Comment on above: Non- GFR Calc Troponin I High Sensitivity 6 pg/mL 3.0-54.0 [facility] Comment on above: Please Note: New Kamilla t Units and Gender Specific Reference Ranges. For more information see Policy Stat Procedure Krebs High Sensitivity Troponin (TNIH) and attachments. No Panel Informationon 02-17 Interpretation and review of laboratory results Normal [facility] Interpretation and review of laboratory results Abnormal [facility] Interpretation and review of laboratory results Abnormal [facility] Platelets bldOrdered By: Jojo Foote on 02-17-2023 Platelets (Bld) [#/Vol] 276 10*3/uL 150-450 [facility] Protein Test strip Ql (U)Ord ered By: Shanda Foote on 02-17-2023 Protein Ql (U) Negative Negative [facility] Serum or plasma calcium miguel urement (mass/volume)Ordered By: Shanda Foote on 02-17-2023 Calcium [Mass/Vol] 9.4 mg/dL 8.5-10.1 [facility] Serum or plasma creatinine m easurement (mass/volume)Ordered By: Shanda Foote on 02-17-2023 Creatinine [Mass/Vol] 0.91 mg/dL 0.55-1.02 [facility] Comment on above: The validity of the calculated GFR & GFRAA in patients over 70 years has not been determined. Clinical correlation is essential. Serum or plasma urea nitroge n measurement (mass/volume)Ordered By: Shanda Foote on 02-17-2023 Urea nitrogen [Mass/Vol] 24 mg/dL 7-18 [facility] Squamous epithelial cells de tection in urine sediment by light microscopyOrdered By: Shanda Foote on 02-17-2023 Epithelial cells.squamous LM Ql (Urine sed) 0-5 SEEN /hpf 5-10 [facility] TSH Qnon 02-17-2023 Interpretation and review of laboratory results Normal [facility] Thin prep Papanicolaou smear with manual screeningOrdered By: Shanda Foote on 02-17-2023 Thin prep Papanicolaou smear with manual screening 7 5-15 [facility] Urine blood detectionOrdered By: Shanda Foote on 02-17-2023 RBC Ql (U) Negative Negative [facility] RBC Ql (U) 0 SEEN /hpf 0-5 [facility] Urine clarityOrdered By: Jojo Foote on 02-17-2023 Clarity (U) Sl. Cloudy Clear [facility] Urine color determinationOrd ered By: Shanda Foote on 02-17-2023 Color (U) Yellow Yellow [facility] Urine glucose detectionOrder ed By: Shanda Foote on 02-17-2023 Glucose Ql (U) Normal mg/dl Normal [facility] Urine leukocyte esterase det ection by dipstickOrdered By: Shanda Foote on 02-17-2023 Leukocyte esterase Test strip Ql (U) 100 /ul Negative [facility] Urine pHOrdered By: Shanda ellison on 02-17-2023 pH (U) 6.0 [pH] 5.0 - 8.0 [facility] Urine sediment bacteria coun t by microscopy (number/high power field)Ordered By: Shanda Foote on 02-17-2023 Bacteria LM.HPF (Urine sed) [#/Area] RARE /hpf None Seen [facility] Urine specific gravity measu rementOrdered By: Shanda Foote on 02-17-2023 Specific gravity (U) [Rel density] 1.020 1.002-1.030 [facility] Urobilinogen Auto test strip Ql (U)Ordered By: Shanda Foote on 02-17-2023 Urobilinogen Ql (U) Normal mg/dl Normal [facility] Absolute lymphocyte countOrd ered By: Christiano De La Vega on 10-15-2022 Lymphocytes Auto (Unsp spec) [#/Vol] 1.80 10*3/uL 0.83-4.51 [facility] Basophil percentageOrdered B y: Christiano De La Vega on 10-15-2022 Basophil percentage 0 SEEN /hpf 0-5 [facility] Basophils/100 WBC (Bld) 0.7 % 0-1 [facility] Chloride [Moles/Vol] 105 mmol/L 98-107 [facility] Eosinophils/100 WBC (Bld) 1.6 % 0-5 [facility] Glucose [Mass/Vol] 84 mg/dL 74-106 [facility] Neutrophils (Bld) [#/Vol] 5.1 10*3/uL 2.0-7.7 [facility] Neutrophils/100 WBC (Bld) 61.9 % 47-70 [facility] Potassium [Moles/Vol] 3.7 mmol/L 3.5-5.1 [facility] Sodium [Moles/Vol] 138 mmol/L 136-145 [facility] WBC (Bld) [#/Vol] 8.3 10*3/uL 4.4-11.0 [facility] Bilirubin Test strip Ql (U)O rdered By: Christiano De La Vega on 10-15-2022 Bilirubin Ql (U) Negative Negative [facility] Blood erythrocytes count (nu mber/volume)Ordered By: Christiano De La Vega on 10-15-2022 RBC (Bld) [#/Vol] 4.50 10*6/uL 4.2-5.4 [facility] Blood hemoglobin measurement (mass/volume)Ordered By: Christiano De La Vega on 10-15-2022 Hemoglobin (Bld) [Mass/Vol] 13.8 g/dL 12.0-15.0 [facility] Blood lymphocytes/100 leukoc ytesOrdered By: Christiano De La Vega on 10-15-2022 Lymphocytes/100 WBC (Bld) 21.8 % 19-41 [facility] Blood monocytes/100 leukocyt esOrdered By: Christiano De La Vega on 10-15-2022 Monocytes/100 WBC (Bld) 13.5 % 0-10 [facility] Blood platelet mean volumeOr dered By: Christiano De La Vega on 10-15-2022 Platelet mean volume (Bld) [Entitic vol] 9.1 fL 6.2-12.0 [facility] Determination of erythrocyte mean corpuscular volume (MCV)Ordered By: Christiano De La Vega on 10-15-2022 MCV (RBC) [Entitic vol] 94.0 fL 81-99 [facility] Hematocrit Auto (Bld) [Volum e fraction]Ordered By: Christiano De La Vega on 10-15-2022 Hematocrit (Bld) [Volume fraction] 42.3 % 37-47 [facility] Ketones Test strip Ql (U)Ord ered By: Christiano De La Vega on 10-15-2022 Ketones Ql (U) Negative Negative [facility] Laboratory - Chemistry and C hemistry - challengeOrdered By: Christiano De La Vega on 10-15-2022 CO2 [Moles/Vol] 28.0 mmol/L 21.0-32.0 [facility] Free T4 [Mass/Vol] 1.36 ng/dL 0.76-1.46 [facility] Natriuretic peptide B (Bld) [Mass/Vol] 26.7 pg/mL 0-100 [facility] Urea nitrogen/Creatinine [Mass ratio] 19.4 mg/mg 10-20 [facility] Laboratory - Hematology and Cell countsOrdered By: Christiano De La Vega on 10-15-2022 Erythrocyte distribution width (RBC) [Entitic vol] 43.9 fL 35.1-43.9 [facility] Erythrocyte distribution width (RBC) [Ratio] 12.7 % 11.6-14.6 [facility] Immature granulocytes/100 WBC (Bld) 0.500 % 0.0-0.9 [facility] Comment on above: IG% - Immature Granu locytes (promyelocytes, myelocytes and metamyelocytes) > 1% indicates that a LEFT SHIFT is Present. MCH (RBC) [Entitic mass] 30.7 pg 27.0-32.0 [facility] Nucleated RBC/100 WBC (Bld) [Ratio] 0 % 0-5 [facility] MCHC Auto (RBC) [Mass/Vol]Or dered By: Christiano De La Vega on 10-15-2022 MCHC (RBC) [Mass/Vol] 32.6 g/dL 32-36 [facility] Mucus LM Ql (Urine sed)Order ed By: Christiano De La Vega on 10-15-2022 Mucus Ql (Urine sed) 0 SEEN /hpf [facility] Nitrite Test strip Ql (U)Ord ered By: Christiano De La Vega on 10-15-2022 Nitrite Ql (U) Negative Negative [facility] No Panel InformationOrdered By: Christiano De La Vega on 10-15-2022 Estimated Creatinine Clearance Calc 46.56 ml/min [facility] Estimated GFR (MDRD) Amer 77 mL/min >60 [facility] Comment on above: GFR Calc Estimated GFR (MDRD) Non-Af Amer 63 mL/min >60 [facility] Comment on above: Non- GFR Calc Thyroid Stimulating Hormone (TSH) 1.29 uIU/mL 0.358-3.74 [facility] Troponin I High Sensitivity 4 pg/mL 3.0-54.0 [facility] Comment on above: Please Note: New Kamilla t Units and Gender Specific Reference Ranges. For more information see Policy Stat Procedure Krebs High Sensitivity Troponin (TNIH) and attachments. Platelets bldOrdered By: Amadeo De La Vega on 10-15-2022 Platelets (Bld) [#/Vol] 288 10*3/uL 150-450 [facility] Protein Test strip Ql (U)Ord ered By: Christiano De La Vega on 10-15-2022 Protein Ql (U) Negative Negative [facility] Serum or plasma calcium miguel urement (mass/volume)Ordered By: Christiano De La Vega on 10-15-2022 Calcium [Mass/Vol] 9.3 mg/dL 8.5-10.1 [facility] Serum or plasma creatinine m easurement (mass/volume)Ordered By: Christiano De La Vega on 10-15-2022 Creatinine [Mass/Vol] 0.93 mg/dL 0.55-1.02 [facility] Comment on above: The validity of the calculated GFR & GFRAA in patients over 70 years has not been determined. Clinical correlation is essential. Serum or plasma urea nitroge n measurement (mass/volume)Ordered By: Christiano De La Vega on 10-15-2022 Urea nitrogen [Mass/Vol] 18 mg/dL 7-18 [facility] Squamous epithelial cells de tection in urine sediment by light microscopyOrdered By: Christiano De La Vega on 10-15-2022 Epithelial cells.squamous LM Ql (Urine sed) 0 SEEN /hpf 5-10 [facility] Thin prep Papanicolaou smear with manual screeningOrdered By: Christiano De La Vega on 10-15-2022 Thin prep Papanicolaou smear with manual screening 5 5-15 [facility] Urine blood detectionOrdered By: Christiano De La Vega on 10-15-2022 RBC Ql (U) Negative Negative [facility] RBC Ql (U) 0 SEEN /hpf 0-5 [facility] Urine clarityOrdered By: Amadeo De La Vega on 10-15-2022 Clarity (U) Clear Clear [facility] Urine color determinationOrd ered By: Christiano De La Vega on 10-15-2022 Color (U) Yellow Yellow [facility] Urine glucose detectionOrder ed By: Christiano De La Vega on 10-15-2022 Glucose Ql (U) Normal mg/dl Normal [facility] Urine leukocyte esterase det ection by dipstickOrdered By: Christiano De La Vega on 10-15-2022 Leukocyte esterase Test strip Ql (U) Negative Negative [facility] Urine pHOrdered By: Christiano villalobos on 10-15-2022 pH (U) 7.0 [pH] 5.0 - 8.0 [facility] Urine sediment bacteria coun t by microscopy (number/high power field)Ordered By: Christiano De La Vega on 10-15-2022 Bacteria LM.HPF (Urine sed) [#/Area] 0 /[HPF] None Seen [facility] Urine specific gravity measu rementOrdered By: Christiano De La Vega on 10-15-2022 Specific gravity (U) [Rel density] 1.005 1.002-1.030 [facility] Urobilinogen Auto test strip Ql (U)Ordered By: Christiano De La Vega on 10-15-2022 Urobilinogen Ql (U) Normal mg/dl Normal [facility] Basophil percentageOrdered B y: John Barboza on 10-07-2022 Chloride [Moles/Vol] 104 mmol/L 98-107 [facility] Glucose [Mass/Vol] 81 mg/dL 74-106 [facility] Potassium [Moles/Vol] 4.1 mmol/L 3.5-5.1 [facility] Sodium [Moles/Vol] 138 mmol/L 136-145 [facility] Laboratory - Chemistry and C hemistry - challengeOrdered By: John Barboza on 10-07-2022 CO2 [Moles/Vol] 27.0 mmol/L 21.0-32.0 [facility] Urea nitrogen/Creatinine [Mass ratio] 18.6 mg/mg 10-20 [facility] No Panel InformationOrdered By: John Barboza on 10-07-2022 Estimated GFR (MDRD) Amer 73 mL/min >60 [facility] Comment on above: GFR Calc Estimated GFR (MDRD) Non-Af Amer 60 mL/min >60 [facility] Comment on above: Non- GFR Calc Thyroid Stimulating Hormone (TSH) 1.55 uIU/mL 0.358-3.74 [facility] Serum or plasma calcium miguel urement (mass/volume)Ordered By: John Barboza on 10-07-2022 Calcium [Mass/Vol] 10.1 mg/dL 8.5-10.1 [facility] Serum or plasma creatinine m easurement (mass/volume)Ordered By: John Barboza on 10-07-2022 Creatinine [Mass/Vol] 0.97 mg/dL 0.55-1.02 [facility] Comment on above: The validity of the calculated GFR & GFRAA in patients over 70 years has not been determined. Clinical correlation is essential. Serum or plasma urea nitroge n measurement (mass/volume)Ordered By: John Barboza on 10-07-2022 Urea nitrogen [Mass/Vol] 18 mg/dL 7-18 [facility] Thin prep Papanicolaou smear with manual screeningOrdered By: John Barboza on 10-07-2022 Thin prep Papanicolaou smear with manual screening 7 5-15 [facility] Basophil percentageOrdered B y: Dr. Dempsey on 09-19-2022 Chloride [Moles/Vol] 105 mmol/L 98-107 [facility] Glucose [Mass/Vol] 128 mg/dL 74-106 [facility] Comment on above: Fasting Glucose resu lt greater than or equal to 126 mg/dL suggests DIABETES MELLITUS per A.D.A. criteria. Potassium [Moles/Vol] 3.7 mmol/L 3.5-5.1 [facility] Sodium [Moles/Vol] 138 mmol/L 136-145 [facility] Laboratory - Chemistry and C hemistry - challengeOrdered By: Dr. Dempsey on 09-19-2022 CK [Catalytic activity/Vol] 63 U/L 26-192 [facility] CO2 [Moles/Vol] 27.0 mmol/L 21.0-32.0 [facility] Urea nitrogen/Creatinine [Mass ratio] 23.1 mg/mg 10-20 [facility] No Panel InformationOrdered By: Dr. Dempsey on 09-19-2022 Estimated Creatinine Clearance Calc 47.58 ml/min [facility] Estimated GFR (MDRD) Amer 74 mL/min >60 [facility] Comment on above: GFR Calc Estimated GFR (MDRD) Non-Af Amer 61 mL/min >60 [facility] Comment on above: Non- GFR Calc Serum or plasma calcium miguel urement (mass/volume)Ordered By: Dr. Dempsey on 09-19-2022 Calcium [Mass/Vol] 9.1 mg/dL 8.5-10.1 [facility] Serum or plasma creatinine m easurement (mass/volume)Ordered By: Dr. Dempsey on 09-19-2022 Creatinine [Mass/Vol] 0.95 mg/dL 0.55-1.02 [facility] Comment on above: The validity of the calculated GFR & GFRAA in patients over 70 years has not been determined. Clinical correlation is essential. Serum or plasma urea nitroge n measurement (mass/volume)Ordered By: Dr. Dempsey on 09-19-2022 Urea nitrogen [Mass/Vol] 22 mg/dL 7-18 [facility] Thin prep Papanicolaou smear with manual screeningOrdered By: Dr. Dempsey on 09-19-2022 Thin prep Papanicolaou smear with manual screening 6 5-15 [facility] Basophil percentageOrdered B y: Dr. Barboza on 04-23-2022 Chloride [Moles/Vol] 106 mmol/L 98-107 [facility] Glucose [Mass/Vol] 218 mg/dL 74-106 [facility] Comment on above: Glucose result great er than or equal to 200 mg/dLsuggests DIABETES MELLITUS per A.D.A. criteria. Potassium [Moles/Vol] 3.8 mmol/L 3.5-5.1 [facility] Sodium [Moles/Vol] 142 mmol/L 136-145 [facility] Laboratory - Chemistry and C hemistry - challengeOrdered By: Dr. Barboza on 04-23-2022 CO2 [Moles/Vol] 26.0 mmol/L 21.0-32.0 [facility] Cobalamin (Vitamin B12) [Mass/Vol] 502 pg/mL 211-911 [facility] Urea nitrogen/Creatinine [Mass ratio] 22.8 mg/mg 10-20 [facility] No Panel InformationOrdered By: Dr. Barboza on 04-23-2022 Estimated GFR (MDRD) Amer 77 mL/min >60 [facility] Comment on above: GFR Calc Estimated GFR (MDRD) Non-Af Amer 64 mL/min >60 [facility] Comment on above: Non- GFR Calc Vitamin D 25-Hydroxy 32.8 ng/mL [facility] Comment on above: Vitamin D 25(OH) Sta tus Range Deficiency <20 ng/mL (50nmol/L) Insufficiency 20 - 30 ng/mL (50 - 75 nmol/L) Sufficiency 30 - 100 ng/mL (75 - 250 nmol/L) Toxicity >100 ng/mL (>250 nmol/L) Serum or plasma calcium miguel urement (mass/volume)Ordered By: Dr. Barboza on 04-23-2022 Calcium [Mass/Vol] 9.2 mg/dL 8.5-10.1 [facility] Serum or plasma creatinine m easurement (mass/volume)Ordered By: Dr. Barboza on 04-23-2022 Creatinine [Mass/Vol] 0.92 mg/dL 0.55-1.02 [facility] Comment on above: The validity of the calculated GFR & GFRAA in patients over 70 years has not been determined. Clinical correlation is essential. Serum or plasma urea nitroge n measurement (mass/volume)Ordered By: Dr. Barboza on 04-23-2022 Urea nitrogen [Mass/Vol] 21 mg/dL 7-18 [facility] Thin prep Papanicolaou smear with manual screeningOrdered By: Dr. Barboza on 04-23-2022 Thin prep Papanicolaou smear with manual screening 10 5-15 [facility] Laboratory - Chemistry and C hemistry - challengeon 10-17-2021 Cobalamin (Vitamin B12) [Mass/Vol] 479 pg/mL 211-911 [facility] Work Phone: No Panel Informationon 10-17 Vitamin D 25-Hydroxy 38.5 ng/mL [facility] Work Phone: Comment on above: Vitamin D 25(OH) Sta tus Range Deficiency <20 ng/mL (50nmol/L) Insufficiency 20 - 30 ng/mL (50 - 75 nmol/L) Sufficiency 30 - 100 ng/mL (75 - 250 nmol/L) Toxicity >100 ng/mL (>250 nmol/L) Basophil percentageon 2021 Bilirubin [Mass/Vol] 0.70 mg/dL 0.20-1.00 [facility] Work Phone: Comment on above: For patients on eltr ombopag therapy, use of Dimension Krebs TBIL is not recommended. Chloride [Moles/Vol] 107 mmol/L 98-107 [facility] Work Phone: Cholesterol [Mass/Vol] 213 mg/dL <200 [facility] Work Phone: Comment on above: <200 mg/dL Desirable 200-240 mg/dL Borderline >240 mg/dL High Risk Glucose [Mass/Vol] 116 mg/dL 74-106 [facility] Work Phone: Comment on above: Fasting Glucose resu lt from 100 to 125 mg/dL suggests IMPAIRED HOMEOSTASIS per A.D.A. criteria. Potassium [Moles/Vol] 4.0 mmol/L 3.5-5.1 [facility] Work Phone: Protein [Mass/Vol] 7.5 g/dL 6.4-8.2 [facility] Work Phone: Sodium [Moles/Vol] 140 mmol/L 136-145 [facility] Work Phone: Triglyceride [Mass/Vol] 188 mg/dL <199 [facility] Work Phone: Comment on above: The drugs N-Acetylcy steine and Metamizole may falsely depress this assay.Serum Triglycerides Reference Interval Normal <150 mg/dL Borderline high 150 - 199 mg/dL High 200 - 499 mg/dL Very High > or = 500 mg/dL Laboratory - Chemistry and C hemistry - challengeon 10-09-2021 ALP [Catalytic activity/Vol] 64 U/L 45-117 [facility] Work Phone: ALT [Catalytic activity/Vol] 34 U/L 13-56 [facility] Work Phone: CO2 [Moles/Vol] 27.0 mmol/L 21.0-32.0 [facility] Work Phone: Free T4 [Mass/Vol] 1.26 ng/dL 0.76-1.46 [facility] Work Phone: Globulin (S) [Mass/Vol] 4.3 g/dL 2.2-4.2 [facility] Work Phone: Urea nitrogen/Creatinine [Mass ratio] 18.5 mg/mg 10-20 [facility] Work Phone: No Panel Informationon 10-09 Estimated GFR (MDRD) Amer 84 mL/min >60 [facility] Work Phone: Comment on above: GFR Calc Estimated GFR (MDRD) Non-Af Amer 69 mL/min >60 [facility] Work Phone: Comment on above: Non- GFR Calc Thyroid Stimulating Hormone (TSH) 1.17 uIU/mL 0.358-3.74 [facility] Work Phone: Serum or plasma albumin miguel urement (mass/volume)on 10-09-2021 Albumin [Mass/Vol] 3.2 g/dL 3.2-5.0 [facility] Work Phone: Serum or plasma albumin/glob ulin mass ratioon 10-09-2021 Albumin/Globulin [Mass ratio] 0.7 {ratio} 0.9-2.4 [facility] Work Phone: Serum or plasma calcium miguel urement (mass/volume)on 10-09-2021 Calcium [Mass/Vol] 9.2 mg/dL 8.5-10.1 [facility] Work Phone: Serum or plasma cholesterol in HDL measurement (mass/volume)on 10-09-2021 Cholesterol in HDL [Mass/Vol] 46 mg/dL >40 [facility] Work Phone: Comment on above: The drugs N-Acetylcy steine and Metamizole may falsely depress this assay. Reference Range HDL <40 mg/dL Low HDL Cholesterol HDL >or= 60 mg/dL High HDL Cholesterol Serum or plasma cholesterol in VLDL measurement (mass/volume)on 10-09-2021 Cholesterol in VLDL [Mass/Vol] 38 mg/dL 5-40 [facility] Work Phone: Serum or plasma creatinine m easurement (mass/volume)on 10-09-2021 Creatinine [Mass/Vol] 0.86 mg/dL 0.55-1.02 [facility] Work Phone: Comment on above: The validity of the calculated GFR & GFRAA in patients over 70 years has not been determined. Clinical correlation is essential. Serum or plasma low density lipoprotein (LDL) cholesterol measurement (mass/volume)on 10-09-2021 Cholesterol in LDL [Mass/Vol] 129 mg/dL 0-130 [facility] Work Phone: Serum or plasma urea nitroge n measurement (mass/volume)on 10-09-2021 Urea nitrogen [Mass/Vol] 16 mg/dL 7-18 [facility] Work Phone: Thin prep Papanicolaou smear with manual screeningon 10-09-2021 Thin prep Papanicolaou smear with manual screening 20 U/L 15-37 [facility] Work Phone: Thin prep Papanicolaou smear with manual screening 6 5-15 [facility] Work Phone: URINE CJ CULTURE-ANA COL C OUNT ([id number])Ordered By: [employer] on 08-09-2014 Bacteria identified Cx Nom (U) ECV Abnormal [facility]; [facility] Work Phone: Comment on above: Escherichia coli, id entified by an automated biochemical system.1,000 Colonies/mLMixed urogenital flora3,000 Colonies/mL S = Susceptible; I = Intermediate; R = Resistant P = Positive; N = Negative MICS are expressed in micrograms per mL Antibiotic RSLT#1 RSLT#2 RSLT#3 RSLT#4Amoxicillin/Clavulanic Acid SAmpicillin SCefepime SCeftriaxone SCefuroxime SCephalothin SCiprofloxacin SErtapenem SGentamicin SImipenem SLevofloxacin SNitrofurantoin IPiperacillin STetracycline STobramycin STrimethoprim/Sulfa S PATIENT NOT FASTINGP ERFORMED BY: [facility] [id number] Information: SRC:UR [id number] Bacteria identified Cx Nom (U) Final report Abnormal [facility]; [facility] Work Phone: Comment on above: PATIENT NOT FASTINGP ERFORMED BY: [employer] [id number] [place] [id number] Information: SRC:UR [id number] Urinalysis, Office ([id number])on 08-08-2014 Bilirubin Ql (U) Small Normal [facility]; [facility] Work Phone: Glucose Test strip (U) [Mass/Vol] Negative Normal [facility]; [facility] Work Phone: Glucose Test strip (U) [Mass/Vol] Negative Normal [facility]; [facility] Work Phone: Hemoglobin Ql (U) Hemolyzed Small Abnormal [facility]; [facility] Work Phone: Ketones Ql (U) Negative Normal [facility] Work Phone: Ketones Ql (U) Negative Normal [facility] Work Phone: Leukocyte esterase Test strip Ql (U) Small Normal [facility]; [facility] Work Phone: Nitrite Ql (U) Negative Normal [facility] Work Phone: Nitrite Ql (U) Negative Normal [facility] Work Phone: pH (U) 6.0 [pH] Normal [facility]; [facility] Work Phone: Comment on above: 5.5 Protein Ql (U) 30 mg/dL Normal [facility] Work Phone: Specific gravity (U) [Rel density] 1.030 1 Abnormal [facility]; [facility] Work Phone: Urobilinogen (24H U) [Mass/Time] 2 mg/dL Normal [facility]; [facility] Work Phone: Urinalysis, Office ([id number])Or dered By: MIKE Wright on 07-16-2013 Bilirubin Ql (U) Negative Normal [facility]; [facility] Work Phone: Bilirubin Ql (U) Negative Normal [facility]; [facility] Work Phone: Glucose Test strip (U) [Mass/Vol] Negative Normal [facility]; [facility] Work Phone: Glucose Test strip (U) [Mass/Vol] Negative Normal [facility]; [facility] Work Phone: Hemoglobin Ql (U) Hemolyzed Trace Normal [facility]; [facility] Work Phone: Ketones Ql (U) Negative Normal [facility] Work Phone: Ketones Ql (U) Negative Normal [facility] Work Phone: Leukocyte esterase Test strip Ql (U) Trace Normal [facility]; [facility] Work Phone: Nitrite Ql (U) Negative Normal [facility] Work Phone: Nitrite Ql (U) Negative Normal [facility] Work Phone: pH (U) 6.5 [pH] Normal [facility]; [facility] Work Phone: Protein Ql (U) Negative Normal [facility] Work Phone: Protein Ql (U) Negative Normal [facility] Work Phone: Specific gravity (U) [Rel density] 1.020 1 Normal [facility]; [facility] Work Phone: Urobilinogen (24H U) [Mass/Time] 2 mg/dL Normal [facility]; [facility] Work Phone: Vital Signs Date Time Vital Sign Value Performing Clinician Facility 11-18-2024 09:120400 Body height 155.6 cm Juan Cody MD Work Phone: [facility] 11-18-2024 09:12-0400 Body mass index (BMI) [Ratio] 35.46 kg/m2 Juan Cody MD Work Phone: [facility] 11-18-2024 09:12-0400 Body weight 85.82 kg Juan Cody MD Work Phone: [facility] 11-18-2024 09:12-0400 Diastolic blood pressure 82 mm[Hg] Juan Cody MD Work Phone: [facility] 11-18-2024 09:12-0400 Heart rate 96 /min Juan Cody MD Work Phone: [facility] 11-18-2024 09:12-0400 Systolic blood pressure 126 mm[Hg] Juan Cody MD Work Phone: [facility] 08-28-2024 00:53-0400 Body temperature 98 [degF] Dr. Bryan Barboza MD Work Phone: [facility] 08-28-2024 00:53-0400 Diastolic blood pressure 92 mm[Hg] Dr. Bryan Barboza MD Work Phone: [facility] 08-28-2024 00:53-0400 Heart rate 80 /min Dr. Bryan Barboza MD Work Phone: [facility] 08-28-2024 00:53-0400 Respiratory rate 16 /min Dr. Bryan Barboza MD Work Phone: [facility] 08-28-2024 00:53-0400 SaO2% (BldA) [Mass fraction] 95 % Dr. Bryan Barboza MD Work Phone: [facility] 08-28-2024 00:53-0400 Systolic blood pressure 152 mm[Hg] Dr. Bryan Barboza MD Work Phone: [facility] 08-27-2024 23:51-0400 Body height 157.[address] Bryan Barboza MD Work Phone: [facility] 08-27-2024 23:51-0400 Body mass index (BMI) [Ratio] 37 kg/m2 Dr. Bryan Barboza MD Work Phone: [facility] 08-27-2024 23:51-0400 Body weight [address] Bryan Barboza MD Work Phone: [facility] 08-05-2024 15:31-0400 Body temperature 97.8 [degF] Dr. Bryan Barboza MD Work Phone: [facility] 08-05-2024 15:31-0400 Diastolic blood pressure 79 mm[Hg] Dr. Bryan Barboza MD Work Phone: [facility] 08-05-2024 15:31-0400 Heart rate 80 /min Dr. Bryan Barboza MD Work Phone: [facility] 08-05-2024 15:31-0400 Respiratory rate 18 /min Dr. Bryan Barboza MD Work Phone: [facility] 08-05-2024 15:31-0400 SaO2% (BldA) [Mass fraction] 95 % Dr. Bryan Barboza MD Work Phone: [facility] 08-05-2024 15:31-0400 Systolic blood pressure 128 mm[Hg] Dr. Bryan Barboza MD Work Phone: [facility] 08-05-2024 14:43-0400 Body weight 89.[address] Bryan Barboza MD Work Phone: [facility] 08-05-2024 08:04-0400 Body mass index (BMI) [Ratio] 39.1 kg/m2 Dr. Bryan Barboza MD Work Phone: [facility] 05-18-2024 10:35-0500 Body height 155.6 cm Josef Elder MD Work Phone: [facility] 05-18-2024 10:35-0500 Body mass index (BMI) [Ratio] 36.24 kg/m2 Josef Elder MD Work Phone: [facility] 05-18-2024 10:35-0500 Body temperature 97.2 [degF] Josef Elder MD Work Phone: [facility] 05-18-2024 10:35-0500 Body weight 87.73 kg Josef Elder MD Work Phone: [facility] Comment on above: [facility] 05-18-2024 10:35-0500 Diastolic blood pressure 82 mm[Hg] Josef Elder MD Work Phone: [facility] 05-18-2024 10:35-0500 Heart rate 92 /min Josef Elder MD Work Phone: [facility] 05-18-2024 10:35-0500 Respiratory rate 17 /min Josef Elder MD Work Phone: [facility] 05-18-2024 10:35-0500 Systolic blood pressure 130 mm[Hg] Josef Elder MD Work Phone: [facility] 11-14-2023 11:04-0400 Body height 156.2 cm Nyla Zhang SEAM FINISHER - [employer] SAL[employer] CONSULTANT Work Phone: [employer] [facility] Comment on above: [facility] 11-14-2023 11:04-0400 Body mass index (BMI) [Ratio] 38.93 kg/m2 Nyla Zhang SEAM FINISHER - [employer] SALES CONSULTANT Work Phone: [employer] [facility] 11-14-2023 11:04-0400 Body temperature 97.2 [degF] Nyla Zhang SEAM FINISHER - [employer] SALES CONSULTANT Work Phone: [employer] [place] 11-14-2023 11:04-0400 Body weight 94.98 kg Nyla Zhang SEAM FINISHER - [employer] SALES CONSULTANT Work Phone: [employer] [place] Comment on above: [facility] 11-14-2023 11:04-0400 Diastolic blood pressure 81 mm[Hg] Nyla Zhang SEAM FINISHER - B2B SALES CONSULTANT Work Phone: [employer] [place] 11-14-2023 11:04-0400 Heart rate 94 /min Nyla Zhang SEAM FINISHER - B2B SALES CONSULTANT Work Phone: [employer] [place] 11-14-2023 11:04-0400 Respiratory rate 19 /min Nyla Zhang SEAM FINISHER - B2B SALES CONSULTANT Work Phone: [employer] [place] 11-14-2023 11:04-0400 Systolic blood pressure 113 mm[Hg] Nyla Zhang SEAM FINISHER - B2B SALES CONSULTANT Work Phone: [employer] [place] 08-14-2023 13:36-0400 Body height 156.2 cm Nyla Zhang NATUROPATHIC PHYSICIAN Work Phone: [facility] [place] Comment on above: [facility] medical [facility] 08-14-2023 13:36-0400 Body mass index (BMI) [Ratio] 41.42 kg/m2 Nyla Zhang NATUROPATHIC PHYSICIAN Work Phone: [facility] 08-14-2023 13:36-0400 Body temperature 96.3 [degF] Nyla Zhang NATUROPATHIC PHYSICIAN Work Phone: [facility] 08-14-2023 13:36-0400 Body weight 101.06 kg Nyla Zhang NATUROPATHIC PHYSICIAN Work Phone: [facility] 08-14-2023 13:36-0400 Diastolic blood pressure 76 mm[Hg] Nyla Zhang NATUROPATHIC PHYSICIAN Work Phone: [facility] 08-14-2023 13:36-0400 Heart rate 105 /min Nyla Zhang NATUROPATHIC PHYSICIAN Work Phone: [facility] 08-14-2023 13:36-0400 Respiratory rate 16 /min Nyla Zhang NATUROPATHIC PHYSICIAN Work Phone: [facility] 08-14-2023 13:36-0400 Systolic blood pressure 143 mm[Hg] Nyla Zhang NATUROPATHIC PHYSICIAN Work Phone: [facility] 06-17-2023 07:43-0400 Body height 156.2 cm Josef Elder MD Work Phone: [facility] [place] 06-17-2023 07:43-0400 Body mass index (BMI) [Ratio] 43.87 kg/m2 Josef Elder MD Work Phone: [facility] [place] 06-17-2023 07:43-0400 Body temperature 97.11 [degF] Josef Elder MD Work Phone: [facility] [place] 06-17-2023 07:43-0400 Body weight 107.05 kg Josef Elder MD Work Phone: [facility] [place] 06-17-2023 07:43-0400 Diastolic blood pressure 78 mm[Hg] Josef Elder MD Work Phone: [facility] [place] 06-17-2023 07:43-0400 Heart rate 111 /min Josef Elder MD Work Phone: [facility] [place] 06-17-2023 07:43-0400 Respiratory rate 18 /min Josef Elder MD Work Phone: [facility] [place] 06-17-2023 07:43-0400 Systolic blood pressure 132 mm[Hg] Josef Elder MD Work Phone: [facility] [place] 05-20-2023 09:00-0500 Body height 156.2 cm Josef Elder MD Work Phone: [facility] [place] Comment on above: [facility] 05-20-2023 09:00-0500 Body mass index (BMI) [Ratio] 45.54 kg/m2 Josef Elder MD Work Phone: [facility] [place] 05-20-2023 09:00-0500 Body temperature 97.2 [degF] Josef Elder MD Work Phone: [facility] [place] 05-20-2023 09:00-0500 Body weight 111.13 kg Josef Elder MD Work Phone: [facility] [place] 05-20-2023 09:00-0500 Diastolic blood pressure 86 mm[Hg] Josef Elder MD Work Phone: [facility] [place] 05-20-2023 09:00-0500 Heart rate 112 /min Josef Elder MD Work Phone: [facility] [place] 05-20-2023 09:00-0500 Respiratory rate 16 /min Josef Elder MD Work Phone: [facility] [place] 05-20-2023 09:00-0500 SaO2% (BldA) [Mass fraction] 96 % Josef Elder MD Work Phone: [facility] [place] 05-20-2023 09:00-0500 Systolic blood pressure 146 mm[Hg] Josef Elder MD Work Phone: [employer] [place] 05-15-2023 12:01-0500 Body temperature 98.49 [degF] Josef Elder MD Work Phone: [employer] [place] 05-15-2023 12:01-0500 Diastolic blood pressure 79 mm[Hg] Josef Elder MD Work Phone: [employer] [place] 05-15-2023 12:01-0500 Heart rate 92 /min Josef Elder MD Work Phone: [employer] [place] 05-15-2023 12:01-0500 Respiratory rate 14 /min Josef Elder MD Work Phone: [employer] [place] 05-15-2023 12:01-0500 SaO2% (BldA) [Mass fraction] 93 % Josef Elder MD Work Phone: [employer] [place] 05-15-2023 12:01-0500 Systolic blood pressure 119 mm[Hg] Josef Elder MD Work Phone: [employer] [place] 05-14-2023 10:23-0500 Body height 160 cm Josef Elder MD Work Phone: [employer] [place] 05-14-2023 10:23-0500 Body mass index (BMI) [Ratio] 45.7 kg/m2 Josef Elder MD Work Phone: [employer] [place] 05-14-2023 10:23-0500 Body weight 117.03 kg Josef Elder MD Work Phone: [employer] [place] 04-30-2023 14:15-0500 Body height 156.2 cm Tanika Ragsdale NATUROPATHIC PHYSICIAN Work Phone: [employer] 04-30-2023 14:15-0500 Body mass index (BMI) [Ratio] 48.59 kg/m2 Tanika Ragsdale NATUROPATHIC PHYSICIAN Work Phone: [employer] 04-30-2023 14:15-0500 Body temperature 97.81 [degF] Tanika Ragsdale NATUROPATHIC PHYSICIAN Work Phone: [employer] 04-30-2023 14:15-0500 Body weight 118.57 kg Tanika Farrisw NATUROPATHIC PHYSICIAN Work Phone: [employer] [place] 04-30-2023 14:15-0500 Diastolic blood pressure 82 mm[Hg] Tanika Dillonvinew NATUROPATHIC PHYSICIAN Work Phone: [employer] [place] 04-30-2023 14:15-0500 Heart rate 105 /min Tanika Dillonvinew NATUROPATHIC PHYSICIAN Work Phone: [employer] [place] 04-30-2023 14:15-0500 Respiratory rate 18 /min Tanika Dillonvinew NATUROPATHIC PHYSICIAN Work Phone: [employer] [place] 04-30-2023 14:15-0500 Systolic blood pressure 134 mm[Hg] Tanika Dillonvinew NATUROPATHIC PHYSICIAN Work Phone: [employer] [place] 04-11-2023 10:31-0500 Diastolic blood pressure 79 mm[Hg] Josef Elder MD Work Phone: [employer] [place] 04-11-2023 10:31-0500 Heart rate 84 /min Josef Elder MD Work Phone: [employer] 04-11-2023 10:31-0500 Respiratory rate 18 /min Josef Elder MD Work Phone: [employer] 04-11-2023 10:31-0500 SaO2% (BldA) [Mass fraction] 99 % Josef Elder MD Work Phone: [employer] 04-11-2023 10:31-0500 Systolic blood pressure 128 mm[Hg] Josef Elder MD Work Phone: [employer] 04-11-2023 10:11-0500 Body temperature 97.9 [degF] Josef Elder MD Work Phone: [employer] 04-11-2023 09:24-0500 Body height 157.5 cm Josef Elder MD Work Phone: [employer] 04-11-2023 09:24-0500 Body mass index (BMI) [Ratio] 47.55 kg/m2 Josef Elder MD Work Phone: [facility] [place] 04-11-2023 09:24-0500 Body weight 117.94 kg Josef Elder MD Work Phone: [facility] [place] 03-24-2023 13:54-0500 Body height 157.5 cm Keyur Casiano MD Work Phone: [facility] [place] 03-24-2023 13:54-0500 Body mass index (BMI) [Ratio] 47.92 kg/m2 Keyur Casiano MD Work Phone: [facility] [place] 03-24-2023 13:54-0500 Body weight 118.84 kg Keyur Casiano MD Work Phone: [facility] [place] 03-24-2023 13:54-0500 Diastolic blood pressure 70 mm[Hg] Keyur Casiano MD Work Phone: [facility] [place] 03-24-2023 13:54-0500 Heart rate 87 /min Keyur Casiano MD Work Phone: [facility] [place] 03-24-2023 13:54-0500 Systolic blood pressure 114 mm[Hg] Keyur Casiano MD Work Phone: [facility] 03-20-2023 13:33-0500 Body height 156.2 cm Juan Cody MD Work Phone: [facility] [place] 03-20-2023 13:33-0500 Body mass index (BMI) [Ratio] 48.41 kg/m2 Juan Cody MD Work Phone: [facility] 03-20-2023 13:33-0500 Body weight 118.12 kg Juan Cody MD Work Phone: [facility] [place] 03-20-2023 13:33-0500 Diastolic blood pressure 70 mm[Hg] Juan Cody MD Work Phone: [facility] [place] 03-20-2023 13:33-0500 Heart rate 90 /min Juan Cody MD Work Phone: [facility] 03-20-2023 13:33-0500 Systolic blood pressure 105 mm[Hg] Juan Cody MD Work Phone: [facility] 02-17-2023 20:34-0500 Diastolic blood pressure 88 mm[Hg] Dr. John Barboza Work Phone: [facility] 02-17-2023 20:34-0500 Heart rate 85 /min Dr. John Barboza Work Phone: [facility] 02-17-2023 20:34-0500 Respiratory rate 16 /min Dr. John Barboza Work Phone: [facility] 02-17-2023 20:34-0500 SaO2% (BldA) [Mass fraction] 95 % Dr. John Barboza Work Phone: [facility] 02-17-2023 20:34-0500 Systolic blood pressure 136 mm[Hg] Dr. John Barboza Work Phone: [facility] 02-17-2023 18:14-0500 Body height 160.[address] John Barboza Work Phone: [facility] 02-17-2023 18:14-0500 Body mass index (BMI) [Ratio] 46.1 kg/m2 Dr. John Barboza Work Phone: [facility] 02-17-2023 18:14-0500 Body temperature 97.7 [degF] Dr. John Barboza Work Phone: [facility] 02-17-2023 18:14-0500 Body weight 118.[address] John Barboza Work Phone: [facility] 02-17-2023 08:31-0500 Body height 156.2 cm Juan Cody MD Work Phone: [facility] 02-17-2023 08:31-0500 Body mass index (BMI) [Ratio] 48.52 kg/m2 Juan Cody MD Work Phone: [facility] [place] 02-17-2023 08:31-0500 Body weight 118.39 kg Juan Cody MD Work Phone: [facility] [place] 02-17-2023 08:31-0500 Diastolic blood pressure 94 mm[Hg] Juan Cody MD Work Phone: [facility] [place] 02-17-2023 08:31-0500 Heart rate 106 /min Juan Cody MD Work Phone: [facility] [place] 02-17-2023 08:31-0500 Systolic blood pressure 154 mm[Hg] Juan Cody MD Work Phone: [facility] [place] 02-05-2023 10:06-0400 Body height 156.2 cm Salma Viveros SEAM FINISHER - B2B SALES CONSULTANT Work Phone: [facility] [place] 02-05-2023 10:06-0400 Body mass index (BMI) [Ratio] 48.93 kg/m2 Salma Viveros SEAM FINISHER - B2B SALES CONSULTANT Work Phone: [facility] [place] 02-05-2023 10:06-0400 Body weight 119.39 kg Salma Viveros SEAM FINISHER - B2B SALES CONSULTANT Work Phone: [facility] [place] 02-05-2023 10:06-0400 Diastolic blood pressure 86 mm[Hg] Salma Viveros SEAM FINISHER - B2B SALES CONSULTANT Work Phone: [facility] [place] 02-05-2023 10:06-0400 Heart rate 94 /min Salma Viveros SEAM FINISHER - B2B SALES CONSULTANT Work Phone: [facility] [place] 02-05-2023 10:06-0400 Respiratory rate 18 /min Salma Viveros SEAM FINISHER - B2B SALES CONSULTANT Work Phone: [facility] [place] 02-05-2023 10:06-0400 SaO2% (BldA) [Mass fraction] 93 % Salma Viveros SEAM FINISHER - B2B SALES CONSULTANT Work Phone: [facility] [place] Comment on above: 02-05-2023 10:06-0400 Systolic blood pressure 110 mm[Hg] Salma Viveros SEAM FINISHER - B2B SALES CONSULTANT Work Phone: [facility] [place] 01-27-2023 07:31-0400 Body height 156.2 cm Juan Cody MD Work Phone: [employer] [place] 01-27-2023 07:31-0400 Body mass index (BMI) [Ratio] 49 kg/m2 Juan Cody MD Work Phone: [employer] [place] 01-27-2023 07:31-0400 Body weight 119.57 kg Juan Cody MD Work Phone: [employer] [place] 01-27-2023 07:31-0400 Diastolic blood pressure 64 mm[Hg] Juan Cody MD Work Phone: [employer] [place] 01-27-2023 07:31-0400 Heart rate 108 /min Juan Cody MD Work Phone: [employer] [place] 01-27-2023 07:31-0400 Systolic blood pressure 100 mm[Hg] Juan Cody MD Work Phone: [facility] [place] 01-10-2023 11:06-0400 Body height 156.[address] Work Phone: [employer] [place] 01-10-2023 11:06-0400 Body mass index (BMI) [Ratio] 48.85 kg/m2 Ana Valentin RD Work Phone: [employer] [place] 01-10-2023 11:06-0400 Body weight 119.[address] Work Phone: [employer] [place] 12-24-2022 11:07-0400 Body height 156.2 cm Josef Elder MD Work Phone: [employer] [place] Comment on above: [facility] 12-24-2022 11:07-0400 Body mass index (BMI) [Ratio] 48.44 kg/m2 Josef Elder MD Work Phone: [employer] [place] 12-24-2022 11:07-0400 Body temperature 97.3 [degF] Josef Elder MD Work Phone: [employer] [place] 12-24-2022 11:07-0400 Body weight 118.21 kg Josef Elder MD Work Phone: [facility] 12-24-2022 11:07-0400 Diastolic blood pressure 83 mm[Hg] Josef Elder MD Work Phone: [facility] 12-24-2022 11:07-0400 Heart rate 101 /min Josef Elder MD Work Phone: [facility] 12-24-2022 11:07-0400 Respiratory rate 16 /min Josef Elder MD Work Phone: [facility] 12-24-2022 11:07-0400 Systolic blood pressure 136 mm[Hg] Josef Elder MD Work Phone: [facility] 11-26-2022 10:52-0400 Body height 160.[address] John Barboza Work Phone: [facility] 10-15-2022 14:07-0400 Diastolic blood pressure 93 mm[Hg] [facility] 10-15-2022 14:07-0400 Heart rate 98 /min [facility] 10-15-2022 14:07-0400 Respiratory rate 16 /min [facility] 10-15-2022 14:07-0400 Systolic blood pressure 144 mm[Hg] [facility] 10-15-2022 11:34-0400 Body height 160.02 cm [facility] 10-15-2022 11:34-0400 Body mass index (BMI) [Ratio] 46.7 kg/m2 [facility] 10-15-2022 11:34-0400 Body temperature 97.6 [degF] [facility] 10-15-2022 11:34-0400 Body weight 119.9 kg [facility] 10-15-2022 11:34-0400 SaO2% (BldA) [Mass fraction] 93 % [facility] 09-19-2022 21:10-0400 Diastolic blood pressure 71 mm[Hg] [facility] 09-19-2022 21:10-0400 Heart rate 100 /min [facility] 09-19-2022 21:10-0400 Respiratory rate 18 /min [facility] 09-19-2022 21:10-0400 SaO2% (BldA) [Mass fraction] 95 % [facility] 09-19-2022 21:10-0400 Systolic blood pressure 146 mm[Hg] [facility] 09-19-2022 20:38-0400 Body height 162.56 cm [facility] 09-19-2022 20:38-0400 Body mass index (BMI) [Ratio] 45.3 kg/m2 [facility] 09-19-2022 20:38-0400 Body temperature 98.2 [degF] [facility] 09-19-2022 20:38-0400 Body weight 120 kg [facility] 08-08-2014 16:41-0400 BMI (Body Mass Index) 47.05 kg/m2 Bibiana Slarb EARLY CHILDHOOD ASSISTANT [facility] Work Phone: 08-08-2014 16:41-0400 Body Temperature 97.4 [degF] Bibiana Slarb EARLY CHILDHOOD ASSISTANT [facility]; [facility] Work Phone: 08-08-2014 16:41-0400 Body weight 112.95 kg Bibiana Slarb EARLY CHILDHOOD ASSISTANT [facility]; [facility] Work Phone: 08-08-2014 16:41-0400 BP Diastolic 90 mm[Hg] Bibiana Slarb EARLY CHILDHOOD ASSISTANT [facility]; [facility] Work Phone: Comment on above: Patient Position: Sitting; Cuff Location : Left Arm; Cuff Size: Standard 08-08-2014 16:41-0400 BP Systolic 148 mm[Hg] Bibiana Slarb EARLY CHILDHOOD ASSISTANT [facility]; [facility] Work Phone: Comment on above: Patient Position: Sitting; Cuff Location : Left Arm; Cuff Size: Standard 08-08-2014 16:41-0400 BSA (Body Surface Area) 2.07 m2 Bibiana Slarb EARLY CHILDHOOD ASSISTANT [facility]; [facility] Work Phone: 08-08-2014 16:41-0400 Height 154.94 cm Bibiana Slarb EARLY CHILDHOOD ASSISTANT [facility]; [facility] Work Phone: 08-08-2014 16:41-0400 Pulse (Heart Rate) 105 /min Bibiana Yancey LPN [facility]; [facility] Work Phone: Comment on above: Pattern: Regular 08-08-2014 16:41-0400 Pulse Oximetry 95 % Ariana Vasquez [facility]; [facility] Work Phone: Comment on above: Room air 08-08-2014 16:41-0400 Respiratory Rate 18 /min Bibiana Yancey LPN [facility]; [facility] Work Phone: Comment on above: Pattern: Unlabored 08-08-2014 16:41-0400 SaO2% (BldA) [Mass fraction] 95 % Bibiana Yancey LPN [facility]; [facility] Work Phone: Comment on above: Room air 08-19-2013 14:14-0400 BMI (Body Mass Index) 45.35 kg/m2 Mynor Prabhakar RN [facility]; [facility] Work Phone: 08-19-2013 14:14-0400 Body Temperature 97.8 [degF] Mynor Prabhakar RN [facility]; [facility] Work Phone: Comment on above: Method: Temporal 08-19-2013 14:14-0400 Body weight 108.86 kg Mynor Prabhakar RN [facility]; [facility] Work Phone: 08-19-2013 14:14-0400 BP Diastolic 76 mm[Hg] Mynor Prabhakar RN [facility]; [facility] Work Phone: Comment on above: Patient Position: Sitting; Cuff Location : Left Arm; Cuff Size: Standard 08-19-2013 14:14-0400 BP Systolic 134 mm[Hg] Mynor Prabhakar RN [facility]; [facility] Work Phone: Comment on above: Patient Position: Sitting; Cuff Location : Left Arm; Cuff Size: Standard 08-19-2013 14:14-0400 BSA (Body Surface Area) 2.04 m2 Mynor L Long RN [facility]; [facility] Work Phone: 08-19-2013 14:14-0400 Height 154.94 cm Mynor Prabhakar RN [facility]; [facility] Work Phone: 08-19-2013 14:14-0400 Pulse (Heart Rate) 97 /min Mynor Prabhakar RN [facility]; [facility] Work Phone: Comment on above: Pattern: Regular 08-19-2013 14:14-0400 Pulse Oximetry 98 % Ariana Vasquez [facility]; [facility] Work Phone: Comment on above: Room air 08-19-2013 14:14-0400 Respiratory Rate 16 /min Mynor Prabhakar RN [facility]; [facility] Work Phone: Comment on above: Pattern: Unlabored 08-19-2013 14:14-0400 SaO2% (BldA) [Mass fraction] 98 % Mynor Prabhakar RN [facility]; [facility] Work Phone: Comment on above: Room air 07-26-2013 16:06-0400 BMI (Body Mass Index) 45.35 kg/m2 MIKE Wright LPN [facility]; [facility] Work Phone: Comment on above: patient was rushing to get here 07-26-2013 16:06-0400 Body Temperature 97.6 [degF] MIKE Wright LPN [facility]; [facility] Work Phone: Comment on above: Method: Oral patient was rushing to get here 07-26-2013 16:06-0400 Body weight 108.86 kg MIKE Wright LPN [facility]; [facility] Work Phone: Comment on above: patient was rushing to get here 07-26-2013 16:06-0400 BP Diastolic 90 mm[Hg] MIKE Wright LPN [facility]; [facility] Work Phone: Comment on above: Patient Position: Sitting; Cuff Location : Left Arm; Cuff Size: Large patient was rushing to get here 07-26-2013 16:06-0400 BP Systolic 130 mm[Hg] MIKE Wright LPN [facility]; [facility] Work Phone: Comment on above: Patient Position: Sitting; Cuff Location : Left Arm; Cuff Size: Large patient was rushing to get here 07-26-2013 16:06-0400 BSA (Body Surface Area) 2.04 m2 MIKE Wright LPN [facility]; [facility] Work Phone: Comment on above: patient was rushing to get here 07-26-2013 16:06-0400 Height 154.94 cm MIKE Wright LPN [facility]; [facility] Work Phone: Comment on above: patient was rushing to get here 07-26-2013 16:06-0400 Pulse (Heart Rate) 76 /min MIKE Wright LPN [facility]; [facility] Work Phone: Comment on above: Pattern: Regular patient was rushing to get here 07-26-2013 16:06-0400 Respiratory Rate 18 /min MIKE Wright LPN [facility]; [facility] Work Phone: Comment on above: Pattern: Unlabored patient was rushing to get here 07-16-2013 13:56-0400 BMI (Body Mass Index) 45.35 kg/m2 MIKE Wright LPN [facility]; [facility] Work Phone: 07-16-2013 13:56-0400 Body Temperature 97.7 [degF] MIKE Wright LPN [facility]; [facility] Work Phone: Comment on above: Method: Oral 07-16-2013 13:56-0400 Body weight 108.86 kg MIKE Wright LPN [facility]; [facility] Work Phone: 07-16-2013 13:56-0400 BP Diastolic 80 mm[Hg] MIKE Wright LPN [facility]; [facility] Work Phone: Comment on above: Patient Position: Sitting; Cuff Location : Left Arm; Cuff Size: Large 07-16-2013 13:56-0400 BP Systolic 120 mm[Hg] MIKE Wright LPN [facility]; [facility] Work Phone: Comment on above: Patient Position: Sitting; Cuff Location : Left Arm; Cuff Size: Large 07-16-2013 13:56-0400 BSA (Body Surface Area) 2.04 m2 MIKE Wright LPN [facility]; [facility] Work Phone: 07-16-2013 13:56-0400 Height 154.94 cm MIKE Wright LPN [facility]; [facility] Work Phone: 07-16-2013 13:56-0400 Pulse (Heart Rate) 80 /min MIKE Wright LPN [facility]; [facility] Work Phone: Comment on above: Pattern: Regular 07-16-2013 13:56-0400 Respiratory Rate 20 /min MIKE Wright LPN [facility]; [facility] Work Phone: Comment on above: Pattern: Unlabored 01-22-2012 15:35-0400 BMI (Body Mass Index) 44.86 kg/m2 Maty Roldan RN [facility]; [facility] Work Phone: 01-22-2012 15:35-0400 Body Temperature 97.7 [degF] Maty Roldan RN [facility]; [facility] Work Phone: Comment on above: Method: Oral 01-22-2012 15:35-0400 Body weight 107.7 kg Maty Roldan RN [facility]; [facility] Work Phone: 01-22-2012 15:35-0400 BP Diastolic 92 mm[Hg] Maty Roldan RN [facility]; [facility] Work Phone: Comment on above: Patient Position: Sitting; Cuff Location : Left Arm; Cuff Size: Large 01-22-2012 15:35-0400 BP Systolic 140 mm[Hg] Maty Roldan RN [facility]; [facility] Work Phone: Comment on above: Patient Position: Sitting; Cuff Location : Left Arm; Cuff Size: Large 01-22-2012 15:35-0400 BSA (Body Surface Area) 2.03 m2 Maty Roldan RN [facility]; [facility] Work Phone: 01-22-2012 15:35-0400 Height 154.94 cm Maty Roldan RN [facility]; [facility] Work Phone: 01-22-2012 15:35-0400 Pulse (Heart Rate) 60 /min aMty Roldan RN [facility]; [facility] Work Phone: Comment on above: Pattern: Regular 01-22-2012 15:35-0400 Respiratory Rate 20 /min Maty Roldan [facility]; [facility] Work Phone: Comment on above: Pattern: Unlabored 09-20-2011 14:34-0400 BMI (Body Mass Index) 45.62 kg/m2 [facility]; [facility] Work Phone: 09-20-2011 14:34-0400 Body Temperature 98.1 [degF] [facility]ia [facility]; [facility] Work Phone: Comment on above: Method: Oral 09-20-2011 14:34-0400 Body weight 109.52 kg Nubia Pizano [facility]; [facility] Work Phone: 09-20-2011 14:34-0400 BP Diastolic 98 mm[Hg] Nubai Reed [facility]; [facility] Work Phone: Comment on above: Patient Position: Supine; Cuff Location: Left Arm; Cuff Size: Large 09-20-2011 14:34-0400 BP Systolic 166 mm[Hg] N[facility]ia P[facility]; [facility] Work Phone: Comment on above: Patient Position: Supine; Cuff Location: Left Arm; Cuff Size: Large 09-20-2011 14:34-0400 BSA (Body Surface Area) 2.05 m2 Nubia Pizano [facility]; [facility] Work Phone: 09-20-2011 14:34-0400 Height 154.94 cm Nubia Pizano [facility]; [facility] Work Phone: 09-20-2011 14:34-0400 Pulse (Heart Rate) 88 /min Nubia Pizano [facility]; [facility] Work Phone: Comment on above: Pattern: Regular 09-20-2011 14:34-0400 Respiratory Rate 16 /min Nubia Reed [facility] Medicine; [facility] Work Phone: Comment on above: Pattern: Unlabored 01-19-2010 08:07-0400 BMI (Body Mass Index) 37.64 kg/m2 Maty Roldan RN [facility]; [facility] Work Phone: 01-19-2010 08:07-0400 Body Temperature 97.1 [degF] Maty Roldan RN Comprehens[facility] e [facility]; [facility] Work Phone: Comment on above: Method: Oral 01-19-2010 08:07-0400 Body weight 94.86 kg Maty Roldan RN [facility]; [facility] Work Phone: 01-19-2010 08:07-0400 BP Diastolic 84 mm[Hg] Maty Roldan RN [facility]; [facility] Work Phone: Comment on above: Patient Position: Sitting; Cuff Location : Left Arm; Cuff Size: Standard 01-19-2010 08:07-0400 BP Systolic 138 mm[Hg] Maty Roldan RN [facility]; [facility] Work Phone: Comment on above: Patient Position: Sitting; Cuff Location : Left Arm; Cuff Size: Standard 01-19-2010 08:07-0400 BSA (Body Surface Area) 1.96 m2 Maty Roldan RN [facility]; [facility] Work Phone: 01-19-2010 08:07-0400 Height 158.75 cm Maty Roldan RN [facility]; [facility] Work Phone: 01-19-2010 08:07-0400 Pulse (Heart Rate) 60 /min Maty Roldan RN [facility]prehens [facility]; [facility] Work Phone: Comment on above: Pattern: Regular 01-19-2010 08:07-0400 Respiratory Rate 20 /min Maty Roldan RN [facility]; [facility] Work Phone: Comment on above: Pattern: Unlabored 02-17-2009 09:24-0500 BMI (Body Mass Index) 41.16 kg/m2 Maty Roldan RN [facility]; [facility] Work Phone: 02-17-2009 09:24-0500 Body weight 105.41 kg Maty Roldan RN [facility]; [facility] Work Phone: 02-17-2009 09:24-0500 BP Diastolic 82 mm[Hg] Maty Roldan RN [facility]; [facility] Work Phone: Comment on above: Patient Position: Sitting; Cuff Location : Left Arm; Cuff Size: Large 02-17-2009 09:24-0500 BP Systolic 122 mm[Hg] Maty Roldan RN [facility]; [facility] Work Phone: Comment on above: Patient Position: Sitting; Cuff Location : Left Arm; Cuff Size: Large 02-17-2009 09:24-0500 BSA (Body Surface Area) 2.06 m2 Maty Roldan RN [facility]; [facility] Work Phone: 02-17-2009 09:24-0500 Head Circumference 0 cm Ariana Christina [facility]; [facility] Work Phone: 02-17-2009 09:24-0500 Head Occipital-frontal circumference 0 cm Maty Roldan RN [facility]; [facility] Work Phone: 02-17-2009 09:24-0500 Height 160.02 cm Maty Roldan RN [facility]; [facility] Work Phone: 02-17-2009 09:24-0500 Pulse (Heart Rate) 72 /min Maty Roldan RN [facility]; [facility] Work Phone: Comment on above: Pattern: Regular 02-17-2009 09:24-0500 Respiratory Rate 20 /min Maty Robertsoniv e Internal Medicine; [facility] Work Phone: Comment on above: Pattern: Unlabored 06-22-2008 15:34-0400 BMI (Body Mass Index) 41.16 kg/m2 Maty Roldan RN [facility]; [facility] Work Phone: 06-22-2008 15:34-0400 Body weight 105.41 kg Maty Roldan RN [facility]; [facility] Work Phone: 06-22-2008 15:34-0400 BP Diastolic 84 mm[Hg] Maty Roldan RN [facility]; [facility] Work Phone: Comment on above: Patient Position: Sitting; Cuff Location : Left Arm; Cuff Size: Large 06-22-2008 15:34-0400 BP Systolic 128 mm[Hg] Maty Roldan RN [facility]; [facility] Work Phone: Comment on above: Patient Position: Sitting; Cuff Location : Left Arm; Cuff Size: Large 06-22-2008 15:34-0400 BSA (Body Surface Area) 2.06 m2 Maty Roldan RN [facility]; [facility] Work Phone: 06-22-2008 15:34-0400 Head Circumference 0 cm Ariana Vasquez [facility]; [facility] Work Phone: 06-22-2008 15:34-0400 Head Occipital-frontal circumference 0 cm Maty Roldan RN [facility]; [facility] Work Phone: 06-22-2008 15:34-0400 Height 160.02 cm Maty Roldan RN [facility]; [facility] Work Phone: 06-22-2008 15:34-0400 Pulse (Heart Rate) 88 /min Maty Roldan RN [facility]; [facility] Work Phone: Comment on above: Pattern: Regular 06-22-2008 15:34-0400 Respiratory Rate 20 /min Maty Roldan RN [facility]; [facility] Work Phone: Comment on above: Pattern: Unlabored 03-11-2008 09:58-0500 BMI (Body Mass Index) 41.1 kg/m2 Maty Roldan RN [facility]; [facility] Work Phone: 03-11-2008 09:58-0500 Body weight 105.24 kg Maty Roldan RN [facility]; [facility] Work Phone: 03-11-2008 09:58-0500 BP Diastolic 82 mm[Hg] Maty Roldan RN [facility]; [facility] Work Phone: Comment on above: Patient Position: Sitting; Cuff Location : Left Arm; Cuff Size: Large 03-11-2008 09:58-0500 BP Systolic 132 mm[Hg] Maty Roldan RN [facility]; [facility] Work Phone: Comment on above: Patient Position: Sitting; Cuff Location : Left Arm; Cuff Size: Large 03-11-2008 09:58-0500 BSA (Body Surface Area) 2.06 m2 Maty Roldan RN [facility]; [facility] Work Phone: 03-11-2008 09:58-0500 Head Circumference 0 cm Ariana Vasquez [facility]; [facility] Work Phone: 03-11-2008 09:58-0500 Head Occipital-frontal circumference 0 cm Maty Roldan RN [facility]; [facility] Work Phone: 03-11-2008 09:58-0500 Height 160.02 cm Maty Roldan RN [facility]; [facility] Work Phone: 03-11-2008 09:58-0500 Pulse (Heart Rate) 88 /min Maty Roldan RN [facility]; [facility] Work Phone: Comment on above: Pattern: Regular 03-11-2008 09:58-0500 Respiratory Rate 20 /min Maty Roldan RN Comprehiv e [facility] Medicine; [facility] Work Phone: Comment on above: Pattern: Unlabored 02-04-2008 15:14-0400 BMI (Body Mass Index) 40.29 kg/m2 Maty Roldan RN [facility]; [facility] Work Phone: 02-04-2008 15:14-0400 Body weight 103.17 kg Maty Roldan RN [facility]; [facility] Work Phone: 02-04-2008 15:14-0400 BP Diastolic 98 mm[Hg] Maty Roldan RN [facility]; [facility] Work Phone: Comment on above: Patient Position: Sitting; Cuff Location : Right Arm; Cuff Size: Large 02-04-2008 15:14-0400 BP Systolic 138 mm[Hg] Maty Roldan RN [facility]; [facility] Work Phone: Comment on above: Patient Position: Sitting; Cuff Location : Right Arm; Cuff Size: Large 02-04-2008 15:14-0400 BSA (Body Surface Area) 2.04 m2 Maty Roldan RN [facility]; [facility] Work Phone: 02-04-2008 15:14-0400 Head Circumference 0 cm Ariana Vasquez [facility]; [facility] Work Phone: 02-04-2008 15:14-0400 Head Occipital-frontal circumference 0 cm Maty Roldan RN [facility]; [facility] Work Phone: 02-04-2008 15:14-0400 Height 160.02 cm Maty Roldan RN [facility]; [facility] Work Phone: 02-04-2008 15:14-0400 Pulse (Heart Rate) 72 /min Maty Rlodan RN [facility]; [facility] Work Phone: Comment on above: Pattern: Regular 02-04-2008 15:14-0400 Respiratory Rate 20 /min Maty Roldan RN Compre[facility]; [facility] Work Phone: Comment on above: Pattern: Unlabored 12-21-2007 13:31-0400 BMI (Body Mass Index) 40.06 kg/m2 Maty Roldan RN [facility]; [facility] Work Phone: 12-21-2007 13:31-0400 Body weight 102.57 kg Maty Roldan RN [facility]; [facility] Work Phone: 12-21-2007 13:31-0400 BP Diastolic 82 mm[Hg] Maty Roldan RN [facility]; [facility] Work Phone: Comment on above: Patient Position: Sitting; Cuff Location : Left Arm; Cuff Size: Large 12-21-2007 13:31-0400 BP Systolic 118 mm[Hg] Maty Roldan RN [facility]; [facility] Work Phone: Comment on above: Patient Position: Sitting; Cuff Location : Left Arm; Cuff Size: Large 12-21-2007 13:31-0400 BSA (Body Surface Area) 2.04 m2 Maty Roldan RN [facility]; [facility] Work Phone: 12-21-2007 13:31-0400 Head Circumference 0 cm Ariana Vasquez [facility]; [facility] Work Phone: 12-21-2007 13:31-0400 Head Occipital-frontal circumference 0 cm Maty Roldan RN [facility]; [facility] Work Phone: 12-21-2007 13:31-0400 Height 160.02 cm Maty Roldan RN [facility]; [facility] Work Phone: 12-21-2007 13:31-0400 Pulse (Heart Rate) 80 /min Maty Roldan RN [facility]; [facility] Work Phone: Comment on above: Pattern: Regular 12-21-2007 13:31-0400 Respiratory Rate 20 /min Maty Roldan RN [facility]; [facility] Work Phone: Comment on above: Pattern: Unlabored 05-29-2006 12:35-0500 Body Temperature 98.5 [degF] Ariana Vasquez [facility]; [facility] Work Phone: Comment on above: Method: Undefined 05-29-2006 12:35-0500 Body weight 0 kg Ariana Vasquez [facility]; [facility] Work Phone: 05-29-2006 12:35-0500 BP Diastolic 80 mm[Hg] Ariana Vasquez [facility]; [facility] Work Phone: Comment on above: Patient Position: Undefined; Cuff Locati on: Undefined; Cuff Size: Undefined 05-29-2006 12:35-0500 BP Systolic 134 mm[Hg] Ariana Vasquez [facility]; [facility] Work Phone: Comment on above: Patient Position: Undefined; Cuff Locati on: Undefined; Cuff Size: Undefined 05-29-2006 12:35-0500 Head Circumference 0 cm Ariana Vasquez [facility]; [facility] Work Phone: 05-29-2006 12:35-0500 Head Occipital-frontal circumference 0 cm Ariana Christina DO Work Phone: [facility]; [facility] Work Phone: 05-29-2006 12:35-0500 Height 0 cm Ariana Christina [facility]; [facility] Work Phone: 05-29-2006 12:35-0500 Pulse (Heart Rate) 76 /min Ariana Christina [facility]; [facility] Work Phone: Comment on above: Pattern: Regular 05-29-2006 12:35-0500 Respiratory Rate 16 /min Ariana Christina [facility]; [facility] Work Phone: Comment on above: Pattern: Undefined 05-15-2006 14:16-0500 Body weight 0 kg Ariana Christina DO Work Phone: [facility]; [facility] Work Phone: 05-15-2006 14:16-0500 Head Circumference 0 cm Ariana Christina [facility]; [facility] Work Phone: 05-15-2006 14:16-0500 Head Occipital-frontal circumference 0 cm Ariana Christina DO Work Phone: [facility]; [facility] Work Phone: 05-15-2006 14:16-0500 Height 0 cm Ariana Christina DO Work Phone: [facility]; [facility] Work Phone: 05-15-2006 14:16-0500 Pulse (Heart Rate) 100 /min Ariana Christina DO Work Phone: [facility]; [facility] Work Phone: Comment on above: Pattern: Regular 05-15-2006 14:16-0500 Respiratory Rate 12 /min Ariana Christina DO Work Phone: [facility]; [facility] Work Phone: Comment on above: Pattern: Unlabored 05-15-2006 14:13-0500 Body Temperature 97.8 [degF] Ariana Christina DO Work Phone: [facility]; [facility] Work Phone: Comment on above: Method: Oral 05-15-2006 14:13-0500 Body weight 0 kg Ariana Christina DO Work Phone: [facility]; [facility] Work Phone: 05-15-2006 14:13-0500 BP Diastolic 90 mm[Hg] Ariana Christina DO Work Phone: [facility]; [facility] Work Phone: Comment on above: Patient Position: Sitting; Cuff Location : Right Arm; Cuff Size: Large 05-15-2006 14:13-0500 BP Systolic 150 mm[Hg] Ariana Christina DO Work Phone: [facility]; [facility] Work Phone: Comment on above: Patient Position: Sitting; Cuff Location : Right Arm; Cuff Size: Large 05-15-2006 14:13-0500 Head Circumference 0 cm Ariana Vasquez [facility]; [facility] Work Phone: 05-15-2006 14:13-0500 Head Occipital-frontal circumference 0 cm Ariana Christina DO Work Phone: [facility]; [facility] Work Phone: 05-15-2006 14:13-0500 Height 0 cm Ariana Christina DO Work Phone: [facility]; [facility] Work Phone: Encounters Encounter Date Encounter Type Care Provider Facility Start: 11-18-2024 End: 11-18-2024 Office outpatient visit 40 minutes Juan Cody MD Work Phone: [facility] Comment on above: Class 2 obesity due to excess calories in adult, unspecified BMI, unspecified whether serious comorbidity present (Primary Dx); Excess skin Start: 11-18-2024 End: 11-18-2024 ambulatory [facility] Start: 11-11-2024 End: 11-11-[address] Bryan Barboza MD Work Phone: -[facility] Start: 11-11-2024 End: 11-11-[address] Bryan Barboza MD -[facility] Work Phone: Start: 11-11-2024 End: 11-11-2024 ambulatory Bryan Barboza Facility:[facility] Start: 11-06-2024 End: 11-06-2024 ambulatory [facility] Start: 08-27-2024 End: 08-28-2024 Emergency department patient visit Dr. Ad GarciaBouchra DO -Emergency Department Work Phone: Start: 08-13-[address] Marcus Suresh DO -Cardiovascular Services Work Phone: Start: 08-13-2024 [facility] Start: 08-13-2024 Non-patient / Non-visit Dr. Pinky Stewart MD -[facility] Work Phone: Start: 08-05-2024 Non-patient / Non-visit Dr. Ulloa -[facility] Work Phone: Start: 08-05-2024 ambulatory Bryan Bustos lity:[facility] Start: 08-05-2024 Non-patient / Non-visit Dr. Walter lee MD -[facility] Start: 08-04-2024 Non-patient / Non-visit Dr. Monserrat Hastings MD -[facility] Work Phone: Start: 08-04-2024 ambulatory Bryan Bustos lity:[facility] Start: 08-04-2024 End: 08-05-2024 Evaluation and management of inpatient Dr. Reno Hagan DO -Progressive Care Unit Work Phone: Start: 05-24-2024 End: 05-24-2024 ambulatory [facility] Start: 05-18-2024 End: 05-18-2024 Office outpatient visit 15 minutes Josef Elder MD Work Phone: [facility] Comment on above: History of sleeve ga strectomy; Deficiency of other specified B group vitamins; Deficiency of multiple nutrient elements; Class 2 severe obesity due to excess calories with serious comorbidity and body mass index (BMI) of 35.0 to 35.9 in adult (HCC); Secondary hypertension Start: 05-18-2024 End: 05-18-2024 ambulatory JOSEF ELDER [facility] Start: 04-30-2024 End: 04-30-2024 ambulatory Galo Harris [place] Start: 04-28-2024 End: 05-26-2024 Telephone encounter Estefani Sanabria RD [facility] Comment on above: Abnormal Lab (Elevat ed ferritin, elevated calcium) Start: 04-24-2024 End: 04-24-2024 ambulatory NYLA ZHANG [facility] Start: 03-27-2024 End: 03-27-2024 Emergency department patient visit Bryan Barboza Facility:[facility] Start: 03-25-2024 ambulatory Bryan [facility]ity:[facility] Start: 03-24-2024 [facility] Start: 03-16-2024 [facility] Start: 03-15-2024 End: 03-16-2024 ambulatory Bryan Barboza Facility:[facility] Start: 11-14-2023 End: 11-14-2023 Office outpatient visit 15 minutes Nyla Zhang [employer] Work Phone: [facility] [place] Comment on above: Prediabetes (Primary Dx); Deficiency of multiple nutrient elements; Deficiency of other specified B group vitamins; History of sleeve gastrectomy; Hypothyroidism, unspecified type; Back pain, unspecified back location, unspecified back pain laterality, unspecified chronicity; Secondary hypertension; Arthralgia, unspecified joint; Iron deficiency; Vitamin D deficiency Start: 10-30-2023 End: 10-30-2023 Telephone encounter Nyla Marks-Matt SEAM FINISHER - [employer] Work Phone: [facility] [place] Comment on above: Abnormal Lab Start: 10-28-2023 End: 10-28-2023 Telephone encounter Nyla Zhang SEAM FINISHER - [employer] Work Phone: [facility] [place] Start: 08-14-2023 End: 08-14-2023 Office outpatient visit 15 minutes Tanika Ragsdale NP Work Phone: [facility] [place] Comment on above: Yeast dermatitis (Pr imary Dx); GERD without esophagitis; Hypothyroidism, unspecified type; Primary hypertension; Morbid obesity with BMI of 40.0-44.9, adult (HCC); Deficiency of multiple nutrient elements; Arthralgia, unspecified joint Start: 06-17-2023 End: 06-17-2023 Postop follow up visit related to original px Josef Elder MD Work Phone: [facility] [place] Comment on above: Primary hypertension (Primary Dx); Deficiency of multiple nutrient elements; Hypercholesterolemia; Morbid obesity with BMI of 40.0-44.9, adult (HCC) Start: 05-20-2023 End: 05-20-2023 Postop follow up visit related to original px Josef Elder MD Work Phone: [facility] [place] Comment on above: Primary hypertension (Primary Dx); Deficiency of multiple nutrient elements; S/P gastric sleeve procedure; Morbid obesity with BMI of 45.0-49.9, adult (HCC); Hypothyroidism, unspecified type Start: 05-14-2023 End: 05-15-2023 Evaluation and management of inpatient Josef Elder MD Work Phone: [facility] Surgical Progressive Care Unit PCU H6 Comment on above: Morbid obesity with BMI of 45.0-49.9, adult (HCC) (Primary Dx); Morbid (severe) obesity due to excess calories (HCC) Start: 04-30-2023 End: 04-30-2023 Office outpatient visit 25 minutes Josef Elder MD Work Phone: [facility] [place] Comment on above: Primary hypertension (Primary Dx); Hypothyroidism, unspecified type; Morbid obesity with BMI of 45.0-49.9, adult (HCC) Start: 04-30-2023 Telephone encounter Pretty Rosa RN [facility] [place] Comment on above: Anticoagulation (Dary enox) Start: 04-11-2023 End: 04-11-2023 Subsequent hospital visit by physician Josef Elder MD Work Phone: [facility] Endoscopy Comment on above: Gastro-esophageal re flux disease without esophagitis Start: 04-02-2023 ambulatory Tanika barber NATUROPATHIC PHYSICIAN Work Phone: [facility] [place] Start: 03-26-2023 Telephone encounter Salma gonzalez SEAM FINISHER - [employer] CONSULTANT Work Phone: [facility] Comment on above: Results Start: 03-24-2023 End: 03-24-2023 Office outpatient visit 25 minutes Keyur Casiano MD Work Phone: [facility] Card[facility] Comment on above: Preoperative clearan ce (Primary Dx); Primary hypertension; Morbid obesity, unspecified obesity type (HCC); Prediabetes Start: 03-24-2023 End: 03-24-2023 Preoperative state Keyur Casiano MD Work Phone: [place] [facility] Work Phone: Start: 03-21-2023 Telephone encounter Adriana Shannon RD Work Phone: [facility] Comment on above: Abnormal Lab Start: 03-20-2023 End: 03-20-2023 Office outpatient visit 25 minutes Juan Cody MD Work Phone: [facility] [place] Comment on above: Morbid obesity due t o excess calories (HCC) (Primary Dx); Hypertension, unspecified type Start: 02-25-2023 Documentation procedure Tanika Ragsdale NATUROPATHIC PHYSICIAN Work Phone: [facility] [place] Comment on above: EGD Start: 02-17-2023 End: 02-17-2023 Emergency department patient visit Dr. John Barboza Work Phone: [facility]-Emergency Department Work Phone: Start: 02-17-2023 Telephone encounter Ivett mcknight RD Work Phone: [facility] [place] Comment on above: Abnormal Lab (Low no rmal vitamin D) Start: 02-17-2023 End: 02-17-2023 Office outpatient visit 25 minutes Juan Cody MD Work Phone: [facility] [place] Comment on above: Morbid obesity due t o excess calories (HCC) (Primary Dx); Hypertension, unspecified type Start: 02-05-2023 End: 02-05-2023 Office outpatient new 30 minutes Salma Mattson SEAM FINISHER - [employer] CONSULTANT Work Phone: [facility] Comment on above: Mild intermittent as thma, unspecified whether complicated (Primary Dx); SOB (shortness of breath); Morbid obesity (HCC); Encounter for preoperative pulmonary examination; Hx of melanoma of skin; Sleep disorder breathing Start: 02-05-2023 End: 02-05-2023 Patient encounter status Salma Viveros SEAM FINISHER [employer] Work Phone: [place] [facility] Start: 01-29-2023 Telephone encounter Frnady moore MD Work Phone: [facility] Start: 01-27-2023 End: 01-27-2023 Office outpatient new 45 minutes Josef Elder MD Work Phone: [facility] [place] Comment on above: Morbid obesity due t o excess calories (HCC) (Primary Dx); Hypertension, unspecified type Start: 01-10-2023 End: 01-10-2023 Clinical Support Josef Elder MD Work Phone: [facility] [place] Comment on above: Primary hypertension (Primary Dx) Start: 12-24-2022 Telephone encounter Tanika ziegler NP Work Phone: [facility] [place] Comment on above: Financial File (Leana ncial File 2022); Surgery Scheduling (Initial Scheduling - Orders Pended) Start: 12-24-2022 End: 12-24-2022 Office outpatient new 45 minutes Josef Elder MD Work Phone: [facility] [place] Comment on above: Primary hypertension (Primary Dx); Hypothyroidism, unspecified type; Back pain, unspecified back location, unspecified back pain laterality, unspecified chronicity; Morbid obesity with BMI of 45.0-49.9, adult (HCC) Start: 11-26-2022 End: 11-26-[address] John Barboza Work Phone: [facility] Work Phone: Start: 11-26-2022 End: 11-26-[address] John Barboza Work Phone: [facility]-Outpatient Breast Imaging Work Phone: Start: 10-31-2022 Non-patient / Non-visit Dr. Fan Barboza Work Phone: [facility] Start: 10-31-2022 End: 10-31-[address] John Barboza Work Phone: [facility] Work Phone: Start: 10-31-2022 End: 10-31-[address] John Barboza Work Phone: [place] [facility] [facility] Work Phone: Start: 10-15-2022 End: 10-15-2022 Emergency department patient visit [facility] Work Phone: Start: 10-07-2022 End: 10-07-2022 ambulatory [facility] Work Phone: Start: 10-07-2022 End: 10-07-2022 Patient encounter procedure [facility] Start: 09-19-2022 End: 09-19-2022 Emergency department patient visit [facility] Start: 04-23-2022 End: 04-23-2022 ambulatory [facility] Work Phone: Start: 04-23-2022 End: 04-23-2022 Patient encounter procedure [facility] Start: 02-11-2022 End: 02-11-2022 Patient encounter procedure [facility] Start: 10-17-2021 End: 10-17-2021 Patient encounter procedure [facility] Start: 10-09-2021 End: 10-09-2021 Patient encounter procedure [facility] Start: 08-08-2014 End: 08-08-2014 Office outpatient visit 15 minutes [facility] Start: 08-19-2013 End: 08-19-2013 Office outpatient visit 25 minutes [facility] Start: 07-26-2013 End: 07-26-2013 Patient encounter procedure [facility] Start: 07-16-2013 End: 07-16-2013 Patient encounter procedure [facility] Start: 07-10-2012 End: 07-10-2012 Phone Encounter [facility] Start: 01-22-2012 End: 01-22-2012 Patient encounter procedure [facility] Start: 09-20-2011 End: 09-23-2011 Patient encounter procedure [facility] Start: 08-30-2011 End: 08-30-2011 Office outpatient visit 25 minutes [facility] Start: 01-19-2010 End: 01-19-2010 Patient encounter procedure [facility] Start: 02-17-2009 End: 02-17-2009 Patient encounter procedure [facility] Start: 06-22-2008 End: 06-22-2008 Patient encounter procedure [facility] Start: 03-11-2008 End: 03-11-2008 Patient encounter procedure [facility] Start: 02-04-2008 End: 02-04-2008 Patient encounter procedure [facility] Start: 12-21-2007 End: 12-21-2007 Office outpatient visit 25 minutes [facility] Start: 05-29-2006 End: 05-29-2006 Office outpatient visit 10 minutes [facility] Start: 05-15-2006 End: 05-15-2006 Office outpatient visit 25 minutes [facility] Start: 05-14-2006 End: 05-14-2006 Historical Summary Ariana [facility] Procedures Date Procedure Procedure Detail Performing Clinician Start: 11-06-2024 Lipid 1995 panel - S hasmukh or Plasma Juan Cody MD Work Phone: Start: 08-28-2024 X-ray of chest, PA a nd lateral views Dr. Bryan Babroza MD Work Phone: Start: 08-28-[address] Bryan Barboza MD Work Phone: Start: 08-27-2024 Thyrotropin [Units/v olume] in Serum or Plasma Juan Cody MD Work Phone: Start: 08-05-2024 MRI of brain without contrast Dr. Bryan Barboza MD Work Phone: Start: 08-05-[address] Bryan Barboza MD Work Phone: Start: 08-04-2024 X-ray of chest, PA a nd lateral views Dr. Bryan Barboza MD Work Phone: Start: 08-04-2024 CT of head without contrast Dr. Bryan Barboza MD Work Phone: Start: 08-04-2024 CT angiography of he ad and neck Dr. 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 - [employer] Work Phone: Start: 11-11-2023 Thyrotropin [Units/v olume] in Serum or Plasma Nyla Zhang SEAM FINISHER - [employer] CONSULTANT Work Phone: Start: 10-24-2023 Lipid 1996 panel - S hasmukh or Plasma Nyla Kendrick-Matt SEAM FINISHER - [employer] SAL[employer] CONSULTANT Work Phone: Start: 05-15-2023 Basic metabolic pane l calcium total Lee Mendez MD Work Phone: Start: 05-14-2023 End: 05-14-2023 Basic metabolic panel calcium total Cris Almaraz MD Work Phone: Start: 03-26-2023 Ecg routine ecg w/le ast 12 lds w/i&r Alexandr Urrutia MD Work Phone: Start: 03-24-2023 Ecg routine ecg w/le ast 12 lds trcg only w/o i&r Alexandr Urrutia MD Work Phone: Start: 03-07-2023 Adult depression scr eening assessment Ivett Mir RD Work Phone: Start: 02-17-2023 Plain chest X-ray Dr. Sourav Barboza Work Phone: Start: 02-17-2023 Lipid 1996 panel - S hasmukh or Plasma Juan Cody MD Work Phone: Start: 02-17-2023 Thyrotropin [Units/v olume] in Serum or Plasma Juan Cody MD Work Phone: Start: 11-26-2022 Dual energy X-ray absorptiometry Dr. John Barboza Work Phone: Start: 11-26-2022 End: 11-26-[address] John tracy Work Phone: Start: 10-31-2022 Radionuclide imaging of perfusion of myocardium under exercise stress Dr. John Barboza Work Phone: Start: 10-15-2022 CT angiography of he ad and neck Start: 10-15-2022 Plain chest X-ray Start: 02-11-2022 Plain x-ray of pelvi s and lower extremity Past history of procedure An donna Yancey Comment on above: 09/07 neg. Removed plate and sc rews out of right leg Bibiana Yancey Comment on above: 07-13 Plan of Treatment Date Care Activity Detail Author Start: 11-06-2029 Lipid panel Lipid Panel [facility] Start: 04-24-2029 Lipid panel Lipid Panel [facility] Start: 10-23-2028 Lipid panel Lipid Panel [facility] Start: 02-18-2028 Lipid panel Lipid Panel [facility] Start: 01-21-2027 Screening for malignant neoplasm of colon [facility] Start: 08-27-2025 Thyroid stimulating hormone measurement TSH Level [facility] Start: 02-14-2025 End: 02-14-2025 Patient encounter procedure 02/14/2025 7:35 AM EST Office Visit [facility] - [place] [id number] Juan Cody MD [address] [place] [address] [facility] Start: 12-10-2024 Medicare Annual Wellness (AWV) Medicare Annual Wellness (AWV) [facility] Start: 12-06-2024 Influenza vaccination Influenza Vaccine (#1) [facility] Start: 11-15-2024 End: 11-15-2024 Patient encounter procedure 11/15/2024 1:00 PM EDT Office Visit [facility] - [address] [place] [id number] Juan Cody MD [address] [place] [address] [facility] Start: 11-10-2024 Thyroid stimulating hormone measurement TSH Level [facility] Start: 08-28-2024 End: 08-28-2024 [facility] Start: 08-05-2024 Patient discharge [facility] Start: 08-05-2024 Telemedicine consultation with patient [facility] Start: 08-04-2024 Application of intermittent pneumatic compression device [facility] Start: 08-04-2024 Following clinical pathway protocol [facility] Start: 08-04-2024 Ambulation without limitation [facility] Start: 08-04-2024 Aspiration precautions [facility] Start: 08-04-2024 Assessment of risk of venous thromboembolism [facility] Start: 08-04-2024 Cardiac monitoring [facility] Start: 08-04-2024 Catheterization of vein [facility] Start: 08-04-2024 Consultation [facility] Start: 08-04-2024 Continuous pulse oximetry [facility] Start: 08-04-2024 Elevation of head of bed [facility] Start: 08-04-2024 Exercises [facility] Start: 08-04-2024 Insertion of catheter into peripheral vein [facility] Start: 08-04-2024 Measuring intake and output [facility] Start: 08-04-2024 Notification of physician [facility] Start: 08-04-2024 Oxygen therapy [facility] Start: 08-04-2024 Patient referral to dietitian [facility] Start: 08-04-2024 Providing care according to standard [facility] Start: 08-04-2024 Referral to occupational therapist [facility] Start: 08-04-2024 Referral to service [facility] Start: 08-04-2024 Speech therapy assessment [facility] Start: 08-04-2024 Tobacco use cessation education [facility] Start: 08-04-2024 End: 08-04-2024 [facility] Start: 08-04-2024 Vital signs measurements [facility] Start: 08-04-2024 Admission procedure [facility] Start: 08-04-2024 [facility] Start: 08-04-2024 Patient referral to dietitian [facility] Start: 05-18-2024 End: 05-18-2024 Patient encounter procedure [facility] Start: 04-14-2024 End: 11-12-2024 25-hydroxyvitamin D3 [Mass/volume] in Serum or Plasma Vitamin D Deficiency Screening (Vit D 25) Lab Routine Deficiency of multiple nutrient elements History of sleeve gastrectomy Hypothyroidism, unspecified type Back pain, unspecified back location, unspecified back pain laterality, unspecified chronicity Secondary hypertension Prediabetes Arthralgia, unspecified joint Vitamin D deficiency Expected: 04/14/2024 (Approximate), Expires: 11/12/2024 [facility] Comment on above: Expected: 04/14/2024 (Approximate), Expi res: 11/12/2024 Start: 04-14-2024 End: 11-12-2024 CBC panel - Blood by Automated count CBC Lab Routine Deficiency of multiple nutrient elements History of sleeve gastrectomy Hypothyroidism, unspecified type Back pain, unspecified back location, unspecified back pain laterality, unspecified chronicity Secondary hypertension Prediabetes Arthralgia, unspecified joint Expected: 04/14/2024 (Approximate), Expires: 11/12/2024 [facility] Comment on above: Expected: 04/14/2024 (Approximate), Expi res: 11/12/2024 Start: 04-14-2024 End: 11-12-2024 Cobalamin (Vitamin B12) [Mass/volume] in Serum or Plasma Vitamin B12 Lab Routine Deficiency of multiple nutrient elements Deficiency of other specified B group vitamins History of sleeve gastrectomy Hypothyroidism, unspecified type Back pain, unspecified back location, unspecified back pain laterality, unspecified chronicity Secondary hypertension Prediabetes Arthralgia, unspecified joint Expected: 04/14/2024 (Approximate), Expires: 11/12/2024 [facility] Comment on above: Expected: 04/14/2024 (Approximate), Expi res: 11/12/2024 Start: 04-14-2024 End: 11-12-2024 Comprehensive metabolic 1998 panel - Serum or Plasma Comprehensive metabolic panel Lab Routine Deficiency of multiple nutrient elements History of sleeve gastrectomy Hypothyroidism, unspecified type Back pain, unspecified back location, unspecified back pain laterality, unspecified chronicity Secondary hypertension Prediabetes Arthralgia, unspecified joint Expected: 04/14/2024 (Approximate), Expires: 11/12/2024 [facility] Comment on above: Expected: 04/14/2024 (Approximate), Expi res: 11/12/2024 Start: 04-14-2024 End: 11-12-2024 Ferritin [Mass/volume] in Serum or Plasma Ferritin Lab Routine Deficiency of multiple nutrient elements History of sleeve gastrectomy Hypothyroidism, unspecified type Back pain, unspecified back location, unspecified back pain laterality, unspecified chronicity Secondary hypertension Prediabetes Arthralgia, unspecified joint Iron deficiency Expected: 04/14/2024 (Approximate), Expires: 11/12/2024 [facility] Comment on above: Expected: 04/14/2024 (Approximate), Expi res: 11/12/2024 Start: 04-14-2024 End: 11-12-2024 Folate [Mass/volume] in Serum or Plasma Folate Lab Routine Deficiency of multiple nutrient elements History of sleeve gastrectomy Hypothyroidism, unspecified type Back pain, unspecified back location, unspecified back pain laterality, unspecified chronicity Secondary hypertension Prediabetes Arthralgia, unspecified joint Expected: 04/14/2024 (Approximate), Expires: 11/12/2024 [facility] Comment on above: Expected: 04/14/2024 (Approximate), Expi res: 11/12/2024 Start: 04-14-2024 End: 11-12-2024 Iron and Iron binding capacity panel - Serum or Plasma Iron Lab Routine Deficiency of multiple nutrient elements History of sleeve gastrectomy Hypothyroidism, unspecified type Back pain, unspecified back location, unspecified back pain laterality, unspecified chronicity Secondary hypertension Prediabetes Arthralgia, unspecified joint Iron deficiency Expected: 04/14/2024 (Approximate), Expires: 11/12/2024 [facility] Comment on above: Expected: 04/14/2024 (Approximate), Expi res: 11/12/2024 Start: 04-14-2024 End: 11-12-2024 Lipid 1996 panel - Serum or Plasma Lipid panel Lab Routine Deficiency of multiple nutrient elements History of sleeve gastrectomy Hypothyroidism, unspecified type Back pain, unspecified back location, unspecified back pain laterality, unspecified chronicity Secondary hypertension Prediabetes Arthralgia, unspecified joint Expected: 04/14/2024 (Approximate), Expires: 11/12/2024 [facility] Comment on above: Expected: 04/14/2024 (Approximate), Expi res: 11/12/2024 Start: 04-14-2024 End: 11-12-2024 Magnesium [Mass/volume] in Serum or Plasma Magnesium Lab Routine Deficiency of multiple nutrient elements History of sleeve gastrectomy Hypothyroidism, unspecified type Back pain, unspecified back location, unspecified back pain laterality, unspecified chronicity Secondary hypertension Prediabetes Arthralgia, unspecified joint Expected: 04/14/2024 (Approximate), Expires: 11/12/2024 [facility] Comment on above: Expected: 04/14/2024 (Approximate), Expi res: 11/12/2024 Start: 04-14-2024 End: 11-12-2024 Vitamin B1, whole blood ([facility]) Vitamin B1, whole blood ([facility]) Lab Routine Deficiency of multiple nutrient elements Deficiency of other specified B group vitamins History of sleeve gastrectomy Hypothyroidism, unspecified type Back pain, unspecified back location, unspecified back pain laterality, unspecified chronicity Secondary hypertension Prediabetes Arthralgia, unspecified joint Expected: 04/14/2024 (Approximate), Expires: 11/12/2024 [facility] Comment on above: Expected: 04/14/2024 (Approximate), Expi res: 11/12/2024 Start: 04-14-2024 End: 11-12-2024 Zinc (Sendout) Zinc (Sendout) Lab Routine Deficiency of multiple nutrient elements History of sleeve gastrectomy Hypothyroidism, unspecified type Back pain, unspecified back location, unspecified back pain laterality, unspecified chronicity Secondary hypertension Prediabetes Arthralgia, unspecified joint Expected: 04/14/2024 (Approximate), Expires: 11/12/2024 [facility] Work Phone: Comment on above: Expected: 04/14/2024 (Approximate), Expi res: 11/12/2024 Start: 03-07-2024 Depression Screening Depression Screening [facility] Start: 02-18-2024 Diabetes mellitus screening Diabetes Screening [facility] Start: 02-18-2024 Thyroid stimulating hormone measurement TSH Level [facility] Start: 12-07-2023 COVID-19 Vaccine ( season) COVID-19 Vaccine () [facility] Start: 12-07-2023 Influenza vaccination [facility] Start: 11-27-2023 Screening for malignant neoplasm of breast Mammogram [facility] Start: 11-14-2023 End: 11-14-2023 Patient encounter procedure [facility] Start: 10-14-2023 End: 08-13-2024 25-hydroxyvitamin D3 [Mass/volume] in Serum or Plasma Vitamin D Deficiency Screening (Vit D 25) Lab Routine GERD without esophagitis Hypothyroidism, unspecified type Primary hypertension Morbid obesity with BMI of 40.0-44.9, adult (HCC) Deficiency of multiple nutrient elements Arthralgia, unspecified joint Expected: 10/14/2023 (Approximate), Expires: 08/13/2024 [facility] Comment on above: Expected: 10/14/2023 (Approximate), Expi res: 08/13/2024 Start: 10-14-2023 End: 08-13-2024 CBC panel - Blood by Automated count CBC Lab Routine GERD without esophagitis Hypothyroidism, unspecified type Primary hypertension Morbid obesity with BMI of 40.0-44.9, adult (HCC) Deficiency of multiple nutrient elements Arthralgia, unspecified joint Expected: 10/14/2023 (Approximate), Expires: 08/13/2024 [employer] [facility] Comment on above: Expected: 10/14/2023 (Approximate), Expi res: 08/13/2024 Start: 10-14-2023 End: 08-13-2024 Cobalamin (Vitamin B12) [Mass/volume] in Serum or Plasma Vitamin B12 Lab Routine GERD without esophagitis Hypothyroidism, unspecified type Primary hypertension Morbid obesity with BMI of 40.0-44.9, adult (HCC) Deficiency of multiple nutrient elements Arthralgia, unspecified joint Expected: 10/14/2023 (Approximate), Expires: 08/13/2024 [employer] [facility] Comment on above: Expected: 10/14/2023 (Approximate), Expi res: 08/13/2024 Start: 10-14-2023 End: 08-13-2024 Comprehensive metabolic 1998 panel - Serum or Plasma Comprehensive metabolic panel Lab Routine GERD without esophagitis Hypothyroidism, unspecified type Primary hypertension Morbid obesity with BMI of 40.0-44.9, adult (HCC) Deficiency of multiple nutrient elements Arthralgia, unspecified joint Expected: 10/14/2023 (Approximate), Expires: 08/13/2024 [employer] [facility] Comment on above: Expected: 10/14/2023 (Approximate), Expi res: 08/13/2024 Start: 10-14-2023 End: 08-13-2024 Ferritin [Mass/volume] in Serum or Plasma Ferritin Lab Routine GERD without esophagitis Hypothyroidism, unspecified type Primary hypertension Morbid obesity with BMI of 40.0-44.9, adult (HCC) Deficiency of multiple nutrient elements Arthralgia, unspecified joint Expected: 10/14/2023 (Approximate), Expires: 08/13/2024 [employer] [facility] Comment on above: Expected: 10/14/2023 (Approximate), Expi res: 08/13/2024 Start: 10-14-2023 End: 08-13-2024 Folate [Mass/volume] in Serum or Plasma Folate Lab Routine GERD without esophagitis Hypothyroidism, unspecified type Primary hypertension Morbid obesity with BMI of 40.0-44.9, adult (HCC) Deficiency of multiple nutrient elements Arthralgia, unspecified joint Expected: 10/14/2023 (Approximate), Expires: 08/13/2024 [employer] [facility] Comment on above: Expected: 10/14/2023 (Approximate), Expi res: 08/13/2024 Start: 10-14-2023 End: 08-13-2024 Iron and Iron binding capacity panel - Serum or Plasma Iron Lab Routine GERD without esophagitis Hypothyroidism, unspecified type Primary hypertension Morbid obesity with BMI of 40.0-44.9, adult (HCC) Deficiency of multiple nutrient elements Arthralgia, unspecified joint Expected: 10/14/2023 (Approximate), Expires: 08/13/2024 [employer] [facility] Comment on above: Expected: 10/14/2023 (Approximate), Expi res: 08/13/2024 Start: 10-14-2023 End: 08-13-2024 Lipid 1996 panel - Serum or Plasma Lipid panel Lab Routine GERD without esophagitis Hypothyroidism, unspecified type Primary hypertension Morbid obesity with BMI of 40.0-44.9, adult (HCC) Deficiency of multiple nutrient elements Arthralgia, unspecified joint Expected: 10/14/2023 (Approximate), Expires: 08/13/2024 [employer] [facility] Comment on above: Expected: 10/14/2023 (Approximate), Expi res: 08/13/2024 Start: 10-14-2023 End: 08-13-2024 Magnesium [Mass/volume] in Serum or Plasma Magnesium Lab Routine GERD without esophagitis Hypothyroidism, unspecified type Primary hypertension Morbid obesity with BMI of 40.0-44.9, adult (HCC) Deficiency of multiple nutrient elements Arthralgia, unspecified joint Expected: 10/14/2023 (Approximate), Expires: 08/13/2024 [employer] [facility] Comment on above: Expected: 10/14/2023 (Approximate), Expi res: 08/13/2024 Start: 10-14-2023 End: 08-13-2024 Vitamin B1, whole blood Vitamin B1, whole blood Lab Routine GERD without esophagitis Hypothyroidism, unspecified type Primary hypertension Morbid obesity with BMI of 40.0-44.9, adult (HCC) Deficiency of multiple nutrient elements Arthralgia, unspecified joint Expected: 10/14/2023 (Approximate), Expires: 08/13/2024 [facility] Comment on above: Expected: 10/14/2023 (Approximate), Expi res: 08/13/2024 Start: 10-14-2023 End: 08-13-2024 Zinc Zinc Lab Routine GERD without esophagitis Hypothyroidism, unspecified type Primary hypertension Morbid obesity with BMI of 40.0-44.9, adult (HCC) Deficiency of multiple nutrient elements Arthralgia, unspecified joint Expected: 10/14/2023 (Approximate), Expires: 08/13/2024 [facility] Work Phone: Comment on above: Expected: 10/14/2023 (Approximate), Expi res: 08/13/2024 Start: 08-17-2023 End: 06-16-2024 CBC panel - Blood by Automated count CBC Lab Routine Primary hypertension Deficiency of multiple nutrient elements Hypercholesterolemia Morbid obesity with BMI of 40.0-44.9, adult (HCC) Expected: 08/17/2023 (Approximate), Expires: 06/16/2024 [facility] Comment on above: Expected: 08/17/2023 (Approximate), Expi res: 06/16/2024 Start: 08-17-2023 End: 06-16-2024 Cobalamin (Vitamin B12) [Mass/volume] in Serum or Plasma Vitamin B12 Lab Routine Primary hypertension Deficiency of multiple nutrient elements Hypercholesterolemia Morbid obesity with BMI of 40.0-44.9, adult (HCC) Expected: 08/17/2023 (Approximate), Expires: 06/16/2024 [facility] Comment on above: Expected: 08/17/2023 (Approximate), Expi res: 06/16/2024 Start: 08-17-2023 End: 06-16-2024 Comprehensive metabolic 1998 panel - Serum or Plasma Comprehensive metabolic panel Lab Routine Primary hypertension Deficiency of multiple nutrient elements Hypercholesterolemia Morbid obesity with BMI of 40.0-44.9, adult (HCC) Expected: 08/17/2023 (Approximate), Expires: 06/16/2024 [facility] Comment on above: Expected: 08/17/2023 (Approximate), Expi res: 06/16/2024 Start: 08-17-2023 End: 06-16-2024 Ferritin [Mass/volume] in Serum or Plasma Ferritin Lab Routine Primary hypertension Deficiency of multiple nutrient elements Hypercholesterolemia Morbid obesity with BMI of 40.0-44.9, adult (HCC) Expected: 08/17/2023 (Approximate), Expires: 06/16/2024 [facility] Comment on above: Expected: 08/17/2023 (Approximate), Expi res: 06/16/2024 Start: 08-17-2023 End: 06-16-2024 Folate [Mass/volume] in Serum or Plasma Folate Lab Routine Primary hypertension Deficiency of multiple nutrient elements Hypercholesterolemia Morbid obesity with BMI of 40.0-44.9, adult (HCC) Expected: 08/17/2023 (Approximate), Expires: 06/16/2024 [facility] Comment on above: Expected: 08/17/2023 (Approximate), Expi res: 06/16/2024 Start: 08-17-2023 End: 06-16-2024 Iron and Iron binding capacity panel - Serum or Plasma Iron Lab Routine Primary hypertension Deficiency of multiple nutrient elements Hypercholesterolemia Morbid obesity with BMI of 40.0-44.9, adult (HCC) Expected: 08/17/2023 (Approximate), Expires: 06/16/2024 [facility] Comment on above: Expected: 08/17/2023 (Approximate), Expi res: 06/16/2024 Start: 08-17-2023 End: 06-16-2024 Magnesium [Mass/volume] in Serum or Plasma Magnesium Lab Routine Primary hypertension Deficiency of multiple nutrient elements Hypercholesterolemia Morbid obesity with BMI of 40.0-44.9, adult (HCC) Expected: 08/17/2023 (Approximate), Expires: 06/16/2024 [facility] Comment on above: Expected: 08/17/2023 (Approximate), Expi res: 06/16/2024 Start: 08-17-2023 End: 06-16-2024 Zinc Zinc Lab Routine Primary hypertension Deficiency of multiple nutrient elements Hypercholesterolemia Morbid obesity with BMI of 40.0-44.9, adult (HCC) Expected: 08/17/2023 (Approximate), Expires: 06/16/2024 [facility] Work Phone: Comment on above: Expected: 08/17/2023 (Approximate), Expi res: 06/16/2024 Start: 08-14-2023 End: 08-14-2023 Patient encounter procedure [facility] Start: 06-17-2023 End: 06-17-2023 Patient encounter procedure 06/17/2023 7:50 AM EDT Office Visit [facility] [address] [facility] [address] [place] [address] Josef Elder MD [address] [facility] [address] [place] [address] [facility] Start: 06-03-2023 End: 05-20-2024 CBC panel - Blood by Automated count CBC Lab Routine 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 Morbid obesity with BMI of 45.0-49.9, adult (HCC) Hypothyroidism, unspecified type Primary hypertension Expected: 06/03/2023 (Approximate), Expires: 05/20/2024 [employer] Comment on above: Expected: 06/03/2023 (Approximate), Expi res: 05/20/2024 Start: 06-03-2023 End: 05-20-2024 Cobalamin (Vitamin B12) [Mass/volume] in Serum or Plasma Vitamin B12 Lab Routine 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 Morbid obesity with BMI of 45.0-49.9, adult (HCC) Hypothyroidism, unspecified type Primary hypertension Expected: 06/03/2023 (Approximate), Expires: 05/20/2024 [employer] Comment on above: Expected: 06/03/2023 (Approximate), Expi res: 05/20/2024 Start: 06-03-2023 End: 05-20-2024 Comprehensive metabolic 1998 panel - Serum or Plasma Comprehensive metabolic panel Lab Routine 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 Morbid obesity with BMI of 45.0-49.9, adult (HCC) Hypothyroidism, unspecified type Primary hypertension Expected: 06/03/2023 (Approximate), Expires: 05/20/2024 [employer] Comment on above: Expected: 06/03/2023 (Approximate), Expi res: 05/20/2024 Start: 06-03-2023 End: 05-20-2024 Ferritin [Mass/volume] in Serum or Plasma Ferritin Lab Routine 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 Morbid obesity with BMI of 45.0-49.9, adult (HCC) Hypothyroidism, unspecified type Primary hypertension Expected: 06/03/2023 (Approximate), Expires: 05/20/2024 [employer] Comment on above: Expected: 06/03/2023 (Approximate), Expi res: 05/20/2024 Start: 06-03-2023 End: 05-20-2024 Folate [Mass/volume] in Serum or Plasma Folate Lab Routine 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 Morbid obesity with BMI of 45.0-49.9, adult (HCC) Hypothyroidism, unspecified type Primary hypertension Expected: 06/03/2023 (Approximate), Expires: 05/20/2024 [employer] Comment on above: Expected: 06/03/2023 (Approximate), Expi res: 05/20/2024 Start: 06-03-2023 End: 05-20-2024 Iron and Iron binding capacity panel - Serum or Plasma Iron Lab Routine 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 Morbid obesity with BMI of 45.0-49.9, adult (HCC) Hypothyroidism, unspecified type Primary hypertension Expected: 06/03/2023 (Approximate), Expires: 05/20/2024 [employer] Comment on above: Expected: 06/03/2023 (Approximate), Expi res: 05/20/2024 Start: 06-03-2023 End: 05-20-2024 Magnesium [Mass/volume] in Serum or Plasma Magnesium Lab Routine 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 Morbid obesity with BMI of 45.0-49.9, adult (HCC) Hypothyroidism, unspecified type Primary hypertension Expected: 06/03/2023 (Approximate), Expires: 05/20/2024 [employer] Comment on above: Expected: 06/03/2023 (Approximate), Expi res: 05/20/2024 Start: 06-03-2023 End: 05-20-2024 Vitamin B1, whole blood Vitamin B1, whole blood Lab Routine 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 Morbid obesity with BMI of 45.0-49.9, adult (HCC) Hypothyroidism, unspecified type Primary hypertension Expected: 06/03/2023 (Approximate), Expires: 05/20/2024 [employer] Comment on above: Expected: 06/03/2023 (Approximate), Expi res: 05/20/2024 Start: 06-03-2023 End: 05-20-2024 Zinc Zinc Lab Routine 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 Morbid obesity with BMI of 45.0-49.9, adult (HCC) Hypothyroidism, unspecified type Primary hypertension Expected: 06/03/2023 (Approximate), Expires: 05/20/2024 [employer] Work Phone: Comment on above: Expected: 06/03/2023 (Approximate), Expi res: 05/20/2024 Start: 05-22-2023 End: 08-20-2023 25-hydroxyvitamin D3 [Mass/volume] in Serum or Plasma Vitamin D Deficiency Screening (Vit D 25) Lab Routine Low vitamin D level Expected: 05/22/2023 (Approximate), Expires: 08/20/2023 [employer] Work Phone: Comment on above: Expected: 05/22/2023 (Approximate), Expi res: 08/20/2023 Start: 05-20-2023 End: 05-20-2023 Patient encounter procedure 05/20/2023 9:10 AM EST Office Visit [facility] [address] [place] [address] [address] [place] [phone] Josef Elder MD [address] [place] [address] [address] [place], [place] [phone] [facility] Start: 05-14-2023 End: 05-14-2023 Admission to same day surgery center 05/14/2023 12:00 PM EST - 05/14/2023 2:00 PM EST Surgery [facility] MAIN OR [address] [facility] [place] [phone] Josef Elder MD [address] [place] [address] [address] [place] [address] LAPAROSCOPIC SLEEVE GASTRECTOMY WITH LIVER WEDGE BIOPSY POSSIBLE OPEN [69962 (CPT )] [facility] Comment on above: LAPAROSCOPIC SLEEVE GASTRECTOMY WITH RAIN ER WEDGE BIOPSY POSSIBLE OPEN [99502 (CPT )] Start: 05-14-2023 End: 05-14-2023 Laps gstrc rstrictiv px longitudinal gastrectomy LAPAROSCOPY GASTRIC RESTRICTIVE PROCEDURE SLEEVE GASTRECTOMY Morbid (severe) obesity due to excess calories (HCC) 05/14/2023 12:00 PM EST [facility] Operating Room Start: 05-14-2023 Subsequent hospital visit by physician 05/14/2023 12:00 PM EST Hospital Encounter [facility] [address] [place] [address] Josef Elder MD [address] [facility] [address] [place] [address] [facility] Start: 05-14-2023 End: 05-14-2023 Unlis laparoscopic procedure liver UNLISTED LAPAROSCOPIC PROCEDURE LIVER Morbid (severe) obesity due to excess calories (HCC) 05/14/2023 12:00 PM EST [facility] Operating Room Start: 05-07-2023 End: 05-07-2023 Admission to establishment 05/07/2023 10:30 AM EST Pre-Admission Testing [facility] Pre-Admit Testing [address] [place] [address] [facility] Pre-Admit Testing Start: 04-30-2023 End: 04-30-2023 Patient encounter procedure 04/30/2023 2:15 PM EST Office Visit [facility] [address] [facility] [address] [place] [address] Tanika Ragsdale NP [address] [facility] [address] [place] [address] [facility] Start: 04-11-2023 End: 04-11-2023 Admission to same day surgery center 04/11/2023 10:00 AM EST - 04/11/2023 10:20 AM EST [facility] [address] [place] [phone] Josef Elder MD 95 [facility] [address] [place] [address] EGD WITH BIOPSY [71662 (CPT )] [facility] Comment on above: EGD WITH BIOPSY [02593 (CPT )] Start: 04-11-2023 Subsequent hospital visit by physician 04/11/2023 10:00 AM EST Hospital Encounter [facility] [address] [place] [phone] Josef Elder MD [address] [facility] [address] [place], [place] [phone] [facility] Start: 04-11-2023 End: 04-11-2023 Egd transoral biopsy single/multiple [facility] G[facility] Start: 03-24-2023 End: 03-24-2023 Patient encounter procedure 03/24/2023 2:00 PM EST Office Visit [facility] [address] [place] [phone] Keyur Casiano MD [address] [place] [address], [address] [place], [place] [phone] [facility] Start: 03-20-2023 End: 03-20-2023 Patient encounter procedure 03/20/2023 1:40 PM EST Office Visit [facility] [address] [place] [address] Juan Cody MD [address] [place] [address] [address] [place], [place] [phone] [facility] Start: 03-17-2023 End: 03-17-2023 Patient encounter procedure 03/17/2023 2:00 PM EST Office Visit [facility] [address] [place] [address] Keyur Casiano MD [address] [facility], [address] [place], [place] [phone] [facility] Start: 02-24-2023 End: 02-24-2023 Patient encounter procedure 02/24/2023 10:00 AM EST Appointment [facility] [address] [place] [phone] Tanika Ragsdale NP [address] [place], [place] [phone] [facility] Start: 02-17-2023 End: 02-17-2023 [facility] Start: 02-17-2023 Bacteria identified in Urine by Culture Urine Culture [facility] Start: 02-17-2023 End: 02-17-2023 Patient encounter procedure 02/17/2023 8:40 AM EST Office Visit [facility] [address] [phone] Juan Cody MD [address] [facility] [address] [place] [address] [facility] Start: 01-27-2023 End: 01-27-2023 Patient encounter procedure 01/27/2023 7:45 AM EDT Office Visit [facility] [place] [phone] Josef Elder MD [address] [facility] [address] [place] [address] Juan Cody MD [address] [facility] [address] [place] [address] [facility] Start: 01-10-2023 End: 01-10-2023 Clinical Support 01/10/2023 10:00 AM EDT Clinical Support [facility] [place] [phone] Josef Elder MD [address] [place] [address] [facility]. [address] [place] [address] [facility] Start: 12-25-2022 End: 12-26-2023 25-hydroxyvitamin D3 [Mass/volume] in Serum or Plasma Vitamin D Deficiency Screening (Vit D 25) Lab Routine Primary hypertension Morbid obesity, unspecified obesity type (HCC) Back pain, unspecified back location, unspecified back pain laterality, unspecified chronicity Prediabetes Iron deficiency Vitamin D deficiency Expected: 12/25/2022, Expires: 12/26/2023 [employer] Comment on above: Expected: 12/25/2022, Expires: Start: 12-25-2022 End: 12-26-2023 CBC panel - Blood by Automated count CBC Lab Routine Primary hypertension Morbid obesity, unspecified obesity type (HCC) Back pain, unspecified back location, unspecified back pain laterality, unspecified chronicity Prediabetes Iron deficiency Vitamin D deficiency Expected: 12/25/2022, Expires: 12/26/2023 [employer] Comment on above: Expected: 12/25/2022, Expires: Start: 12-25-2022 End: 12-26-2023 Cobalamin (Vitamin B12) [Mass/volume] in Serum or Plasma Vitamin B12 Lab Routine Primary hypertension Morbid obesity, unspecified obesity type (HCC) Back pain, unspecified back location, unspecified back pain laterality, unspecified chronicity Prediabetes Iron deficiency Vitamin D deficiency Expected: 12/25/2022, Expires: 12/26/2023 [employer] Comment on above: Expected: 12/25/2022, Expires: Start: 12-25-2022 End: 12-26-2023 Comprehensive metabolic 1998 panel - Serum or Plasma Comprehensive metabolic panel Lab Routine Primary hypertension Morbid obesity, unspecified obesity type (HCC) Back pain, unspecified back location, unspecified back pain laterality, unspecified chronicity Prediabetes Iron deficiency Vitamin D deficiency Expected: 12/25/2022, Expires: 12/26/2023 [employer] Comment on above: Expected: 12/25/2022, Expires: Start: 12-25-2022 End: 12-26-2023 Ferritin [Mass/volume] in Serum or Plasma Ferritin Lab Routine Primary hypertension Morbid obesity, unspecified obesity type (HCC) Back pain, unspecified back location, unspecified back pain laterality, unspecified chronicity Prediabetes Iron deficiency Vitamin D deficiency Expected: 12/25/2022, Expires: 12/26/2023 [employer] Comment on above: Expected: 12/25/2022, Expires: Start: 12-25-2022 End: 12-26-2023 Folate [Mass/volume] in Serum or Plasma Folate Lab Routine Primary hypertension Morbid obesity, unspecified obesity type (HCC) Back pain, unspecified back location, unspecified back pain laterality, unspecified chronicity Prediabetes Iron deficiency Vitamin D deficiency Expected: 12/25/2022, Expires: 12/26/2023 [employer] Comment on above: Expected: 12/25/2022, Expires: Start: 12-25-2022 End: 12-26-2023 Helicobacter pylori Ag [Presence] in Stool by Immunoassay H. pylori Stool Antigen Microbiology Routine Primary hypertension Morbid obesity, unspecified obesity type (HCC) Back pain, unspecified back location, unspecified back pain laterality, unspecified chronicity Prediabetes Iron deficiency Vitamin D deficiency Expected: 12/25/2022 (Approximate), Expires: 12/26/2023 [employer] Comment on above: Expected: 12/25/2022 (Approximate), Expi res: 12/26/2023 Start: 12-25-2022 End: 12-26-2023 Hemoglobin A1c measurement Hemoglobin A1c Lab Routine Primary hypertension Morbid obesity, unspecified obesity type (HCC) Back pain, unspecified back location, unspecified back pain laterality, unspecified chronicity Prediabetes Iron deficiency Vitamin D deficiency Expected: 12/25/2022, Expires: 12/26/2023 [employer] Work Phone: Comment on above: Expected: 12/25/2022, Expires: 4 Start: 12-25-2022 End: 12-26-2023 Iron and Iron binding capacity panel - Serum or Plasma Iron Lab Routine Primary hypertension Morbid obesity, unspecified obesity type (HCC) Back pain, unspecified back location, unspecified back pain laterality, unspecified chronicity Prediabetes Iron deficiency Vitamin D deficiency Expected: 12/25/2022, Expires: 12/26/2023 [employer] Comment on above: Expected: 12/25/2022, Expires: Start: 12-25-2022 End: 12-26-2023 Lipid 1996 panel - Serum or Plasma Lipid panel Lab Routine Primary hypertension Morbid obesity, unspecified obesity type (HCC) Back pain, unspecified back location, unspecified back pain laterality, unspecified chronicity Prediabetes Iron deficiency Vitamin D deficiency Expected: 12/25/2022, Expires: 12/26/2023 [employer] Comment on above: Expected: 12/25/2022, Expires: Start: 12-25-2022 End: 12-26-2023 Magnesium [Mass/volume] in Serum or Plasma Magnesium Lab Routine Primary hypertension Morbid obesity, unspecified obesity type (HCC) Back pain, unspecified back location, unspecified back pain laterality, unspecified chronicity Prediabetes Iron deficiency Vitamin D deficiency Expected: 12/25/2022, Expires: 12/26/2023 [employer] Comment on above: Expected: 12/25/2022, Expires: Start: 12-25-2022 End: 12-26-2023 Thyrotropin [Units/volume] in Serum or Plasma TSH Lab Routine Primary hypertension Morbid obesity, unspecified obesity type (HCC) Back pain, unspecified back location, unspecified back pain laterality, unspecified chronicity Prediabetes Iron deficiency Vitamin D deficiency Expected: 12/25/2022, Expires: 12/26/2023 [employer] Comment on above: Expected: 12/25/2022, Expires: Start: 12-25-2022 End: 12-26-2023 Vitamin B1, whole blood Vitamin B1, whole blood Lab Routine Primary hypertension Morbid obesity, unspecified obesity type (HCC) Back pain, unspecified back location, unspecified back pain laterality, unspecified chronicity Prediabetes Iron deficiency Vitamin D deficiency Expected: 12/25/2022, Expires: 12/26/2023 [employer] Comment on above: Expected: 12/25/2022, Expires: Start: 12-25-2022 End: 12-26-2023 XR Abdomen and RF Gastrointestinal tract upper W contrast PO FL upper GI w KUB Imaging Routine Primary hypertension Morbid obesity, unspecified obesity type (HCC) Back pain, unspecified back location, unspecified back pain laterality, unspecified chronicity Prediabetes Iron deficiency Vitamin D deficiency Expected: 12/25/2022, Expires: 12/26/2023 [facility] Comment on above: Expected: 12/25/2022, Expires: 4 Start: 12-25-2022 End: 12-26-2023 Zinc Zinc Lab Routine Primary hypertension Morbid obesity, unspecified obesity type (HCC) Back pain, unspecified back location, unspecified back pain laterality, unspecified chronicity Prediabetes Iron deficiency Vitamin D deficiency Expected: 12/25/2022, Expires: 12/26/2023 [facility] Comment on above: Expected: 12/25/2022, Expires: 4 Start: 12-06-2022 COVID-19 Vaccine () COVID-19 Vaccine () [facility] Start: 12-06-2022 Influenza vaccination Influenza Vaccine (#1) [facility] Start: 11-26-2022 Dual energy X-ray absorptiometry Dexa Bone Density Study [facility] Start: 10-15-2022 Iv infusion hydration each additional hour HYDRATE IV INFUSION ADD-ON [facility] Start: 11-21-2016 Pneumococcal Vaccine: 65+ Years (1 - PCV) Pneumococcal Vaccine: 65+ Years (1 - PCV) [facility] Start: 11-21-2016 Pneumococcal Vaccine: 65+ Years (1 of 1 - PCV) Pneumococcal Vaccine: 65+ Years (1 of 1 - PCV) [facility] Start: 08-08-2014 Provider Instructions for Treatment Follow up if no improvement or if symptoms worsen [facility]; [facility] Work Phone: Start: 08-19-2013 Provider Instructions for Treatment Follow up in 1 week [facility]; [facility] Work Phone: Start: 05-24-2012 25 hydroxy includes fractions if performed Vitamin D Hydroxy (06895) [facility]; [facility] Work Phone: Start: 05-24-2012 Assay of thyroid stimulating hormone tsh TSH (96507) [facility]; [facility] Work Phone: Start: 05-24-2012 TSH Qn TSH (87479) [facility]; [facility] Work Phone: Start: 05-24-2012 Urnls dip stick/tablet reagent auto microscopy URINALYSIS, W/ MICRO (79217) [facility]; [facility] Work Phone: Start: 05-24-2012 Urine albumin quantitative MICROALBUMIN: CREATININE RATIO (75026) AND (44243) [facility]; [facility] Work Phone: Start: 05-24-2012 Comprehensive metabolic panel METABOLIC PANEL, COMPREHENSIVE (09315) [facility]; [facility] Work Phone: Start: 05-24-2012 Lipid panel LIPID PANEL (19987) [facility]; [facility] Work Phone: Start: 05-24-2012 Blood count manual cell count each CBC WITH MANUAL DIFF (32954) [facility]; [facility] Work Phone: Start: 01-22-2012 Provider Instructions for Treatment [facility]; [facility] Work Phone: Start: 01-20-2012 25 hydroxy includes fractions if performed Vitamin D Hydroxy (77285) [facility]; [facility] Work Phone: Start: 2011 Hepatitis B Vaccines (1 of 3 - Risk 3-dose series) Hepatitis B Vaccines (1 of 3 - Risk 3-dose series) [facility] Start: 2011 RSV Immunization aged 60 or older (1 - 1-dose 60+ series) RSV Immunization aged 60 or older (1 - 1-dose 60+ series) [facility] Start: 2011 RSV Immunization for Adults (1 - Risk 60-74 years 1-dose series) RSV Immunization for Adults (1 - Risk 60-74 years 1-dose series) [facility] Start: 09-20-2011 Blood occult fecal hgb deter ia qual feces 1-3 FECAL OCCULT HGB ASSAY- tubes sent home (62492) [facility]; [facility] Work Phone: Start: 09-20-2011 Provider Instructions for Treatment [facility]; [facility] Work Phone: Start: 08-30-2011 Provider Instructions for Treatment [facility]; [facility] Work Phone: Start: 08-30-2011 HbA1c (Bld) [Mass fraction] HEMOGLOBIN GLYCLATED (HGB A1C) (18445) [facility]; [facility] Work Phone: Start: 08-30-2011 Hemoglobin glycosylated a1c HEMOGLOBIN GLYCLATED (HGB A1C) (79729) [facility]; [facility] Work Phone: Start: 08-30-2011 25 hydroxy includes fractions if performed CALCIFIDIOL (78061) VIT D 25 [facility]; [facility] Work Phone: Start: 08-30-2011 Assay of folic acid serum Folate (94998) [facility]; [facility] Work Phone: Start: 08-30-2011 Assay of thyroid stimulating hormone tsh TSH (60034) [facility]; [facility] Work Phone: Start: 08-30-2011 Cobalamin (Vitamin B12) [Mass/Vol] VITAMIN B-12 (CYANOCOBALAMIN) (72996) [facility]; [facility] Work Phone: Start: 08-30-2011 Cyanocobalamin vitamin b-12 VITAMIN B-12 (CYANOCOBALAMIN) (61986) [facility]; [facility] Work Phone: Start: 08-30-2011 TSH Qn TSH (04238) [facility]; [facility] Work Phone: Start: 08-30-2011 C-reactive protein C-REACTIVE PROTEIN (15093) [facility]; [facility] Work Phone: Start: 08-30-2011 Comprehensive metabolic panel METABOLIC PANEL, COMPREHENSIVE (16081) [facility]; [facility] Work Phone: Start: 08-30-2011 CRP [Mass/Vol] C-REACTIVE PROTEIN (72958) [facility]; [facility] Work Phone: Start: 08-30-2011 Rheumatoid factor quantitative RHEUMATOID FACTOR-QUANT (41841) [facility]; [facility] Work Phone: Start: 08-30-2011 Sedimentation rate rbc non-automated SED RATE ERYTHROCYTE (41332) [facility]; [facility] Work Phone: Start: 08-30-2011 Antinuclear antibodies jeremiah JEREMIAH (ANTINUCLEAR ANTIBODY) (37193) [facility]; [facility] Work Phone: Start: 08-30-2011 Blood count complete automated CBC (AUTO) (36074) [facility]; [facility] Work Phone: Start: 08-30-2011 Nuclear Ab IF (S) [Titer] JEREMIAH (ANTINUCLEAR ANTIBODY) (78306) [facility]; [facility] Work Phone: Start: 08-30-2011 Lipid panel Lipid Panel (56187) [facility]; [facility] Work Phone: Start: 01-19-2010 Provider Instructions for Treatment FOLLOW UP IN 1 WEEK [facility]; [facility] Work Phone: Start: 06-22-2008 Assay of thyroid stimulating hormone tsh TSH (08670) [facility]; [facility] Work Phone: Start: 06-22-2008 TSH Qn TSH (27619) [facility]; [facility] Work Phone: Start: 06-22-2008 Urine albumin quantitative MICROALBUMIN: CREATININE RATIO (32700) AND (16324) [facility]; [facility] Work Phone: Start: 06-22-2008 Comprehensive metabolic panel METABOLIC PANEL, COMPREHENSIVE (05005) [facility]; [facility] Work Phone: Start: 06-22-2008 Lipid panel LIPID PANEL [facility]; [facility] Work Phone: Comment on above: NMR LIPOPROFILE Start: 06-22-2008 Blood count manual cell count each CBC WITH MANUAL DIFF (64042) [facility]; [facility] Work Phone: Start: 06-22-2008 Provider Instructions for Treatment [facility]; [facility] Work Phone: Start: 03-11-2008 Provider Instructions for Treatment [facility]; [facility] Work Phone: Start: 02-04-2008 Provider Instructions for Treatment [facility]; [facility] Work Phone: Start: 12-21-2007 Antinuclear antibodies jeremiah JEREMIAH (ANTINUCLEAR ANTIBODY) (14968) [facility]; [facility] Work Phone: Start: 12-21-2007 Assay of folic acid serum Folate (83852) [facility]; [facility] Work Phone: Start: 12-21-2007 Assay of thyroid stimulating hormone tsh TSH (99306) [facility]; [facility] Work Phone: Start: 12-21-2007 C-reactive protein C-REACTIVE PROTEIN (25654) [facility]; [facility] Work Phone: Start: 12-21-2007 Cobalamin (Vitamin B12) [Mass/Vol] VITAMIN B-12 (CYANOCOBALAMIN) (03069) [facility] Work Phone: Start: 12-21-2007 CRP [Mass/Vol] C-REACTIVE PROTEIN (95288) [facility] Work Phone: Start: 12-21-2007 Cyanocobalamin vitamin b-12 VITAMIN B-12 (CYANOCOBALAMIN) (58605) [facility] Work Phone: Start: 12-21-2007 Nuclear Ab IF (S) [Titer] JEREMIAH (ANTINUCLEAR ANTIBODY) (24393) [facility] Work Phone: Start: 12-21-2007 Rheumatoid factor quantitative RHEUMATOID FACTOR-QUANT (29001) [facility] Work Phone: Start: 12-21-2007 Sedimentation rate rbc non-automated SED RATE ERYTHROCYTE (40080) [facility] Work Phone: Start: 12-21-2007 TSH Qn TSH (88971) [facility] Work Phone: Start: 12-21-2007 Provider Instructions for Treatment [facility] Work Phone: Start: 12-21-2007 Lipid panel LIPID PANEL (75378) [facility] Work Phone: Comment on above: do in 6 months Start: 05-29-2006 Provider Instructions for Treatment Diet and Exercise [facility]; [facility] Work Phone: Start: 05-15-2006 Provider Instructions for Treatment [facility]; [facility] Work Phone: Start: 11-21-2001 Zoster Vaccines (1 of 2) Zoster Vaccines (1 of 2) [facility] Start: 1991 Screening for malignant neoplasm of breast Mammogram [facility] Start: 11-21-1970 DTaP/Tdap/Td Vaccines (1 - Tdap) DTaP/Tdap/Td Vaccines (1 - Tdap) [facility] Start: 11-21-1970 Hepatitis A Vaccines (1 of 2 - Risk 2-dose series) Hepatitis A Vaccines (1 of 2 - Risk 2-dose series) [facility] Start: 11-21-1970 Pneumococcal Vaccine: 50+ Years (1 of 2 - PCV) Pneumococcal Vaccine: 50+ Years (1 of 2 - PCV) [facility] Start: 11-21-1969 Diabetes mellitus screening Diabetes Screening [facility] Start: 11-21-1969 Hepatitis C screening Hepatitis C Screening [facility] Start: 1963 Depression Screening Depression Screening [facility] Start: 11-21-1957 Pneumococcal Vaccine: 65+ Years (1 of 2 - PCV) Pneumococcal Vaccine: 65+ Years (1 of 2 - PCV) [facility] Start: 05-24-1952 COVID-19 Vaccine (#1) COVID-19 Vaccine (#1) [facility] Start: 1950 Lipid panel Lipid Panel [facility] Start: 1950 Medicare Annual Wellness (AWV) Medicare Annual Wellness (AWV) [facility] Start: 1950 Screening for malignant neoplasm of colon [facility] Start: 1950 Screening for osteoporosis Bone Density Scan [facility] Start: 1950 Thyroid stimulating hormone measurement TSH Level [facility] ECG 12 lead - CLINIC PERFORMED ECG 12 lead - CLINIC PERFORMED CV ECG Routine Primary hypertension 03/24/2023 1:57 PM EST [place] [facility] Work Phone: Patient Education [facility] Work Phone: Patient referral [facility] Work Phone: Tissue exam [employer] Work Phone: Comment on above: Release Upon Ordering for 1 Occurrences starting 04/11/2023 Tissue exam [employer] Work Phone: Comment on above: Release Upon Ordering for 1 Occurrences starting 05/14/2023, 1 completed Vitamin B1, whole blood Vitamin B1, whole blood Lab Routine Primary hypertension Morbid obesity, unspecified obesity type (HCC) Back pain, unspecified back location, unspecified back pain laterality, unspecified chronicity Prediabetes Iron deficiency Vitamin D deficiency 02/17/2023 9:20 AM EST [employer] Vitamin B1, whole blood Vitamin B1, whole blood Lab Routine 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 Morbid obesity with BMI of 45.0-49.9, adult (HCC) Hypothyroidism, unspecified type Primary hypertension 06/11/2023 8:54 AM EST [employer] Vitamin B1, whole blood Vitamin B1, whole blood Lab Routine GERD without esophagitis Hypothyroidism, unspecified type Primary hypertension Morbid obesity with BMI of 40.0-44.9, adult (HCC) Deficiency of multiple nutrient elements Arthralgia, unspecified joint 10/24/2023 9:23 AM EDT [employer] Vitamin B1, whole bl ood ([facility]) Vitamin B1, whole blood ([facility]) Lab Routine Deficiency of multiple nutrient elements Deficiency of other specified B group vitamins History of sleeve gastrectomy Hypothyroidism, unspecified type Back pain, unspecified back location, unspecified back pain laterality, unspecified chronicity Secondary hypertension Prediabetes Arthralgia, unspecified joint 04/24/2024 11:22 AM EST [employer] Zinc Zinc Lab Routine Primary hypertension Morbid obesity, unspecified obesity type (HCC) Back pain, unspecified back location, unspecified back pain laterality, unspecified chronicity Prediabetes Iron deficiency Vitamin D deficiency 02/17/2023 9:20 AM EST [employer] Zinc Zinc Lab Routine 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 Morbid obesity with BMI of 45.0-49.9, adult (HCC) Hypothyroidism, unspecified type Primary hypertension 06/11/2023 8:54 AM EST [employer] Zinc Zinc Lab Routine Primary hypertension Deficiency of multiple nutrient elements Hypercholesterolemia Morbid obesity with BMI of 40.0-44.9, adult (HCC) 08/09/2023 11:25 AM EDT [employer] Zinc Zinc Lab Routine GERD without esophagitis Hypothyroidism, unspecified type Primary hypertension Morbid obesity with BMI of 40.0-44.9, adult (HCC) Deficiency of multiple nutrient elements Arthralgia, unspecified joint 10/24/2023 9:23 AM EDT [employer] Zinc (Sendout) Zinc (Sendout) L ab Routine Deficiency of multiple nutrient elements History of sleeve gastrectomy Hypothyroidism, unspecified type Back pain, unspecified back location, unspecified back pain laterality, unspecified chronicity Secondary hypertension Prediabetes Arthralgia, unspecified joint 04/24/2024 11:22 AM EST [employer] [facility] Work Phone: [facility] Work Phone: [facility] Work Phone: [facility] Work Phone: Payers Date Payer Category Payer Self-pay [id number] 2022 Medicare [id number] 2022 Medicare supplementa l policy (as second payer) [facility] [place] [id number] 2022 Unknown 2022 Medicare [id number] 2022 Unknown [id number] 2015 Unknown [id number] Medicare [id number] Unknown [id number] Unknown [id number] .462 Unknown [id number] .462 Unknown [id number] 2.16.840.1.531691.3.579.2 .462 Unknown [id number] 2.16.840.1.561714.3.579.2 .462 Unknown [id number] 2.16.840.1.196063.3.579.2 .462 Unknown [id number] 2.16.840.1.853107.3.579.2 .462 Unknown [id number] 2.16.840.1.596620.3.579.2 .462 Unknown [id number] 2.16.840.1.358525.3.579.2 .462 Unknown [id number] 2.16.840.1.009660.3.579.2 .462 Unknown [id number] 2.16.840.1.218829.3.579.2 .462 Unknown [id number] 2.16.840.1.198829.3.579.2 .462 Unknown [id number] 2.16.840.1.756859.3.579.2 .462 Unknown [id number] 2.16.840.1.103535.3.579.2 .462 Unknown [id number] 2.16.840.1.547405.3.579.2 .462 Unknown [id number] 2.16.840.1.100333.3.579.2 .462 Unknown [id number] .462 Social History Date Type Detail Facility Start: 12-24-2022 End: 03-07-2023 Caffeine Use Caffeine Use [facility]; [facility] Work Phone: Comment on above: 1-2 cups qd lives with s pouse Current Work/Study Status: Current Work/Study Status: [facility]; [facility] Work Phone: Comment on above: [employer] Exercise History: Exercise History: [facility]; [facility] Work Phone: Tobacco use: Tobacco use: [facility] Work Phone: Current Work/Study Status: Current Work/Study Status: [facility]; [facility] Work Phone: Comment on above: [employer] Exercise History: Exercise History: [facility]; [facility] Work Phone: Tobacco use: Tobacco use: [facility] Work Phone: Start: 1950 Sex Assigned At Female [facility] Start: 09-19-2022 End: 02-17-2023 Tobacco smoking status MTIS Unknown if ever smoked [facility] Start: 12-24-2022 End: 08-27-2024 Tobacco smoking status MTIS Never smoked tobacco [facility] Start: 12-24-2022 Tobacco use and exposure Smokeless tobacco non-user [facility] Start: 12-24-2022 End: 11-14-2023 Alcohol intake Current drinker of alcohol (finding) [facility] Start: 12-24-2022 Alcohol Comment rarely [place] [facility] Start: 1950 Sex Assigned At Not on file [facility] Start: 12-24-2022 End: 03-07-2023 Gender identity Not on file [facility] Start: 12-14-2022 End: 12-24-2022 Exposure to SARS-CoV-2 (event) Not sure [facility] Within the last year , have you been afraid of your partner or ex-partner? No [facility] Start: 11-05-2021 Sex Female (finding) [facility] Start: 05-18-2024 End: 11-16-2024 Alcoholic beverage intake Ex-drinker (finding) [facility] Start: 05-18-2024 Alcohol Comment About 1 per month [facility] Goals Date Patient Goal Desired Activity /State Functional Status Date Assessment Result Facility 08-05-2024 Functional status Ambulates;Russel r;Bathroom Privilege [facility] Work Phone: Mental Status Date Assessment Result Facility 08-27-2024 Cognitive function Awake;Alert;A ppropriate;Follow s Commands [facility] Work Phone: 08-05-2024 Cognitive function Voice/Name [facility] Work Phone: 02-17-2023 Cognitive function Level Of Cons ciousness Awake;Alert;Appropriate;Follow s Commands [facility] Work Phone: 10-15-2022 Cognitive function Level Of Cons ciousness Awake;Alert;Appropriate [facility] Work Phone: Clinical Notes 09-19-2022 to 11-18-2024 Shanda Medina MA - 11/18/2024 9:30 AM EDTJuan Cody MD - 11/18/2024 9:30 AM EDT Note Date & Type Note Facility 11-18-2024 History of Present illness Narrative [facility] ROOMING NOTE POST WEIGHT LOSS SURGERY FOLLOW UP Patient: Sloane Rinaldi Service Date: 11/18/2024 Patient is 18 month(s) s/p Sleeve Gastrectomy Today's Metrics: Post-Surgical Weight Loss Date: 11/18/24 Height: 5' 1.25 (155.6 cm) Weight: 189 lb 3.2 oz (85.8 kg) BMI: 35.45 Weight Change: -4.2 lbs Total Weight Change: -74.4 lbs % EBWL: 48% Post-op Weight Metrics: Post-Surgical Weight Loss Date: 11/18/24 Height: 5' 1.25 (155.6 cm) Weight: 189 lb 3.2 oz (85.8 kg) BMI: 35.45 Weight Change: -4.2 lbs Total Weight Change: -74.4 lbs % EBWL: 48% (From Surgical Weight Loss Tracker) Patient has the following questions: None Reported Pain: Patient rates pain on scale 0-10 as: 0 Exercise Compliance: Exercising: yes If yes: Type: walking Times per week: 5 Min per session: 30 Falls Risk Assessment Patient does take medications which affect BP or mental status Patient does not t have newly prescribed or changed dosage of medications within past 30 days which affect BP or mental status Patient has not fallen in the past 2 months Patient does not t demonstrate unsteady gait Patient uses the following ambulatory assistive devices: none Patient states the presence of the following traits which increases risk of fall: none Patient is not on home O2 Pre-op Weight Metrics: Labs Completed: yes - If NO, patient instructed to get labs drawn today or LYSSA If YES: Labs completed at [place]? yes If yes see Labs Tab Labs completed at Non-[place] facility? N/A If yes see Encounters Tab - Orders only - Historical Provider - Date: Completed by: Shanda Medina MA [facility] SURGICAL WEIGHT LOSS MANAGEMENT PROGRAM POST-OPERATIVE MEDICAL WEIGHT LOSS MANAGEMENT - 18 MONTH VISIT INITIAL PHYSICIAN EVALUATION Patient: Sloane Rinaldi Service Date: 11/18/2024 Date of : 1950 Patient History/Assessment Summary: 73 y.o. year old female. Height: 5' 1.25 (155.6 cm), Weight: 189 lb 3.2 oz (85.8 kg), Body mass index is 35.46 kg/m . kg/m2. Previously undergone weight loss surgery (Sleeve, May 2023, Dr. Jerrod Jaeger). They are here for the 18 month post-weight loss surgery follow up visit. This is the patient's first medical evaluation for this service. They deny nausea, vomiting, dysphagia, abdominal pain, or any GERD symptoms. Currently is not taking a PPI. This patient s excess weight is causing: HTN Using CPAP: No Patient states diet and exercise is going well. Patient is compliant with prescribed multivitamins and supplements. Labs were Completed PLAN: ROS: I reviewed New Patient Assessment form with the patient, which is located in the [employer] tab History: Medical History[1] Surgical History[2] Family History[3] Social History Tobacco Use Smoking status: Never Smokeless tobacco: Never Substance Use Topics Alcohol use: Not Currently Alcohol/week: 1.0 standard drink of alcohol Types: 1 Glasses of wine per week Comment: About 1 per month Physical Examination: BP 126/82 Pulse 96 Ht 5' 1.25 (1.556 m) Wt 189 lb 3.2 oz (85.8 kg) BMI 35.46 kg/m General: Awake, alert, oriented x 4, No apparent distress. No evidence of respiratory distress Musculoskeletal: Ambulates without difficulty without assistance Neurological: Intact x 4 extremities, no focal deficits notes. Current Diet Eating 5x daily Dinner: 5:00 pm After dinner: occasional (elvia crackers) Protein: chicken, peñaloza, eggs, fish, protein shakes/bars Water: 64-90 ounces daily Activity: walking Current Eating Behaviors Reviewed the Impact on Life Questionnaire with patient; in which she describes the impact of obesity on her life. (in [employer]) Plan: --Obesity Class II Sleeve, May 2023, Dr. Jerrod Jaeger Diet and exercise (DE) Diet recommendations provided to patient; they understood and agreed with plan. Continue physician-supervised weight loss management Patient should continue to attend all physician follow up appointments for life Maximum weight pre-surgery: 264 lbs Lowest post-surgery weight: 188 lbs -Discussed cessation of the following prior to and after surgery: carbonation, caffeine, NSAIDs, alcohol, tobacco. Patient understood and agreed. Anti obesity medications may be considered in the future, this was discussed with Ms. Rinaldi --HTN: Management per outpatient providers, Discussed blood pressure could decrease with weight loss, potentially resulting in dizziness/lightheadedness (which can result in fall/injury). Patient understood. Adequate hydration and follow up with PCP for abnormal blood pressures and possible medication adjustments discussed - patient understood and agreed. Stable Monitor BP Management per outpatient providers --Pre-diabetes, Management per outpatient providers, Discussed blood glucose could decrease with weight loss. Patient understood. They are aware of symptoms of hypoglycemia and treatment of hypoglycemia. Patient will follow up with their outpatient providers --TIA: no acute symptoms, Management per outpatient providers The patient is in no distress. The patient denies chest pain and denies shortness of breath. The patient answers all questions and follows all commands appropriately. November 2024: I reviewed all labs, she understood and agreed with the plan Elevated vitamin D: continue vitamin D supplement, no toxicity symptoms, recheck vitamin D Elevated ferritin (normal iron): I recommended she follow up with primary care provider, we discussed potential issues with the liver, she understood and agreed to follow with PCP Elevated B12: continue multivitamin and B12 supplement for now as vitamin B is water soluble and excess is naturally excreted, recheck B12 Elevated LDL (bad cholesterol) - she discussed with primary care provider, she has been prescribed an anti-hyperlipidemic medications, continue follow up with PCP --Labs reviewed - management per ordering providers. November 2024: all post-operative labs Protein goal of 1g protein per 1 kg of ideal body weight Patient instructed to continue post-weight loss surgery diet recommendations. Patient instructed to continue to monitor for signs and symptoms of GERD Psych concerns : no Excessive skin concerns: yes, referred to plastic surgery with patient's permission Plan of care discussed with patient, all questions answered, they agree with plan of care. Medical decision making: Patient's medical conditions place them at a moderate risk of complications, morbidity, and mortality. Orders Placed This Encounter Procedures [facility] Plastic Surgery Current Meds Patient's Medications New Prescriptions No medications on file Previous Medications ALBUTEROL 108 (90 BASE) MCG/ACT INHALER Daily as needed. BIOTIN 5000 PO Take by mouth. CALCIUM CARBONATE 500 MG CHEWABLE TABLET Chew 1 tablet (500 mg) every other day. CYANOCOBALAMIN (B-12) [address] 1 tablet under the tongue daily. LEVOTHYROXINE (SYNTHROID, LEVOXYL) 100 MCG TABLET Take 100 mcg by mouth daily. TAKING HALF 50MCG LOSARTAN-HYDROCHLOROTHIAZIDE (HYZAAR) 50-12.5 MG TABLET Take 0.5 tablets by mouth daily. NYSTATIN (MYCOSTATIN) 900099 UNIT/GM POWDER Apply 1 Application topically 2 times daily. Apply topically to affected area two times daily. OMEPRAZOLE (PRILOSEC) [address] CAPSULE Take 1 capsule (20 mg) by mouth daily. Do not crush or chew. PEDIATRIC MULTIVITAMINS-IRON PO Take 1 tablet by mouth daily. VITAMIN D PO Take 4,000 Int'l Units by mouth daily. Modified Medications No medications on file Discontinued Medications No medications on file Orders Placed This Encounter Procedures [facility] Plastic Surgery Standing Status: Future Expected Date: 11/18/2024 Expiration Date: 05/21/2025 Referral Priority: Routine Referral Type: Consultation Referral Reason: Specialty Services Required Requested Specialty: Plastic Surgery Number of Visits Requested: 1 Problem List[4] Visit Diagnoses: 1. Class 2 obesity due to excess calories in adult, unspecified BMI, unspecified whether serious comorbidity present 2. Excess skin I spent total time 40 minutes reviewing previous notes, test results, and face to face with the patient discussing the diagnosis and importance of compliance with the treatment plan as well as documenting on the day of the visit. 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 Hypothyroidism Joint pain Melanoma (HCC) right arm with lymph nodes removed Palpitations Prediabetes SOB (shortness of breath) on exertion [2] Past Surgical History: Procedure Laterality Date COLONOSCOPY EXTREMITY SURGERY 1994 FRACTURE SURGERY 1988 OTHER SURGICAL HISTORY 1997 rt arm melanoma SLEEVE GASTRECTOMY, LAPAROSCOPIC (HISTORICAL) 05/14/2023 Dr. Elder TIBIA FRACTURE SURGERY Right plate and 7 srews [3] Family History Problem Relation Name Age of Onset Asthma Father Frandy Melgoza Cancer Sister Eliana Hypertension Brother Jose Heart disease Brother Jose Diabetes Brother Jose Obesity Brother Jose Diabetes Paternal Grandmother Theresa Melgoza Vision loss Paternal Grandmother Theresa Melgoza [4] Patient Active Problem List Diagnosis Morbid obesity, unspecified obesity type (HCC) Back pain Hypertension Hypercholesterolemia Hypothyroid Iron deficiency anemia History of motion sickness Difficult intravenous access Deficiency of multiple nutrient elements documented in this encounter [facility] 08-05-2024 Note [facility] Medical Records Department [address] [place] [id number] Discharge Summary 08/05/24 1304 MR#: [id number] Acct: [id number] Name: SLOANE RINALDI Rep #: [id number] : 1950 73 From: [place] Hagan DO PCP: Dr. Bryan Barboza MD Status:ADM IN [id number] Prov[facility] Date of Admission: 08/04/24 Date of Discharge: 08/05/24 Primary Care Physician: Dr. Bryan Barboza MD Consultations 08/04/24 19:59 Consult: Tele-Neurology Routine Consulting Provider: [facility] Reason for Consult: CVA r/o EMERGENT Consult: No Notified: No Date Notified: 08/04/24 Time Notified: 19:59 Nursing Unit Staff Notify [facility] of Tele-Neurology Consult: Yes 08/05/24 10:17 [facility] [Consult: Tele-Neurology] Routine Consulting Provider: [facility] Reason for Consult: STROKE EMERGENT Consult: No Notified: Yes Date Notified: 08/05/24 Time Notified: 10:17 Method of Notification: Answering Service Nursing Unit Staff Notify [facility] of Tele-Neurology Consult: Yes Reason For Visit: CVA Diagnosis Discharge Diagnosis (1) CVA (cerebral vascular accident): Status: Acute Code(s): I63.9 - Cerebral infarction, unspecified Medications at Discharge Home Medications aspirin 81 mg chewable tablet 81 mg PO BREAKFAST #0 tabs 03/16/24 losartan 50 mg-hydrochlorothiazide 12.5 mg tablet 0.5 tab PO DAILY 04/30/24 ipratropium bromide 42 mcg (0.06 %) nasal spray 2 spray intranasal DAILY PRN allergy symptoms 08/04/24 levothyroxine 100 mcg tablet 100 mcg PO DAILY 08/04/24 amoxicillin 875 mg-potassium clavulanate 125 mg tablet 1 tab PO BIDCM 6 days #12 tabs 08/05/24 atorvastatin 40 mg tablet 40 mg PO QHS 30 days #30 tabs 08/05/24 Hospital Course Operations None Procedures EKG, Transthoracic echo and - (CT brain, CTA head/neck, MRI brain, chest x-ray) Summary of Care Provided Minutes Spent on Discharge: 35 Hospital Course: Patient is a 73-year-old female who presented to [facility] ED on 08/04/2024 with strokelike symptoms. Hospital course as noted below. Patient discharged home in stable condition on 08/05. 1. Recurrent CVA ??? Neurology followed. Presented with left arm and left facial numbness/tingling and left eye vision issues. CT brain and CTA head/neck unremarkable. NIHSS score of 1. Thrombolytics were not administered given low NIHSS score and not on disabling symptoms. MRI brain did show new punctate infarcts in right parietal lobe. Importantly, patient had very similar presentation in March and MRI brain showed infarcts in same area at that time. TTE was normal and 30-day event monitor was negative for any aberrant rhythms. Repeat TTE showed normal EF and no new findings from previous. Per neurology, highest suspicion is for cardioembolic source. Will discharge with 30-day event monitor again and JADYN can be considered in the outpatient setting if needed. 2. Periapical abscess ??? Has prior history of periapical abscesses in the left side of her mouth. CT head/neck showed periapical lucency in posterior left mandibular tooth suspicious for periapical abscess. Abscess was lanced in the ED. Will complete 7-day course of Augmentin on discharge. Recommend close outpatient follow-up with dentistry. 3. Hypertension ??? Continue home losartan???hydrochlorothiazide. 4. Hypothyroidism ??? Continue home Synthroid. Total clinical time spent by myself addressing the patient's medical issues, reviewing all the data, and collaborating with patient's care team: 35 minutes. Physical Exam Const alert, oriented x3, no apparent distress, average body habitus, healthy appearing and well nourished General Appearance: cooperative, comfortable, well kempt and well developed HEENT normocephalic, head/scalp atraumatic, hearing grossly normal bilaterally, nasal mucous membranes and turbinates normal and moist oral mucous membranes Eyes PERRL, EOMs intact bilaterally and conjunctivae normal Neck full ROM Chest inspection of chest normal Resp normal respiratory effort, normal air movement, no use of accessory muscles and clear to auscultation bilaterally Cardio regular rate, regular rhythm, no murmurs and peripheral pulses 2+ throughout GI normal to inspection, nondistended, normoactive bowel sounds, soft to palpation, non-tender and non- distended Back/Spine normal ROM Extremity normal to inspection, full ROM and no pedal edema Skin no rashes or lesions noted Neuro oriented x3, CN's II-XII intact bilaterally, moves all extremities and no focal motor deficits Speech: speech normal Motor Exam: strength 5/5 throughout Psych mental status grossly normal Weight / BMI Weight Weight: 89.9 kg Body Mass Index (BMI) 39.1 ABG / Lab / Microbiology Data 08/05/24 05:59 08/05/24 05:59 La (more content not included)... [facility] 08-04-2024 Evaluation note Diagnosis Onset Date Resolution Abscess, periapical acute August 04, 2024 6:13pm Brain TIA resolved August 04 6:13pm CVA (cerebral vascular accident) resolved August 04, 2024 6:13pm Hypertension inactive August 04, 2024 6:13pm [facility] Work Phone: [phone]) 725-529002-18-2025 Telephone encounter Note* Telephone Encounter - HUSSAIN Perry CNP - 05/25/2024 2:33 PM EST Ferritin is down to 313 and calcium essentially unchanged. My chart message sent to pt to confirm dose of calcium carbonate is 500 mg every other day. [facility] [id number] Miscellaneous Notes* Telephone Encounter - HUSSAIN Perry CNP - 05/25/2024 2:33 PM EST Ferritin is down to 313 and calcium essentially unchanged. My chart message sent to pt to confirm dose of calcium carbonate is 500 mg every other day. * Telephone Encounter - HUSSAIN Perry CNP - 05/04/2024 9:37 AM EST Great, thanks! * Telephone Encounter - Estefani Sanabria RD - 04/30/2024 4:39 PM EST Pt noted is has had recent abscess in tooth needing extraction, infection likely contributing to elevated ferritin level. Pt noted is currently taking 500 mg of calcium once daily, RD recommending decreasing to every other day at this time for improvement. Pt noted is drinking ~64 fl oz most days. Inquiring into elevated vitamin b12 level of 1345, RD noted no change in interventions warranted with slightly elevated b12 d/t not upper limit. RD encouraged maintaining adequate hydration. Pending recheck on calcium and ferritin in 1 month for improvement in levels. Routed to NATUROPATHIC PHYSICIAN. * Telephone Encounter - Estefani Sanabria RD - 04/28/2024 5:08 PM EST DOS 05/14/23 LSG TB Last OV: 11/14/2023 6M POP Next OV: 05/18/2024 12M POP Labs 04/24/2024 Ferritin 408 elevated Calcium 10.3 elevated Please see MyChart for pt and RD encounter RD reaching out to review abnormal lab values. PT noted with elevated ferritin, RD assessing for ongoing/chronic inflammatory conditions and referring to PCP for management. Noted with elevated calcium level, RD inquiring into fluid intake at this time. Pt response pending. documented in this [facility] [place]02-11-2025 History of Present illness Narrative* Nanette Schrader RD - 05/18/2024 10:20 AM EST [facility] [place] > 6 MONTH POST-OPERATIVE DIETITIAN VISIT Date: 05/18/24 Patient's weight decreased by: 70.2 lbs Patient does consume 5-6 small meals daily Patient s portions are adequate for current diet: -1 cup Protein requirements discussed- currently consuming 55-60 grams protein daily. Current protein sources: peñaloza, egg, cheese, protein drink, chicken Recommendations: Increase protein at meals to hit 65g/day Fluid requirements discussed. Current Fluid Intake: >64oz Patient does drink sugar-free, caffeine-free and carbonation-free fluids only. Patient does wait 30 minutes before and after meals to drink Exercise activities discussed. Patient does currently exercise. She was reminded that regular exercise is critical part of a successful outcome following weight loss surgery. She walks for 15 minutesa day currently. Strongly encouraged that pt start light weightlifting and chair exercises to increase HDL cholesterol, strengthen her bones and continue weight loss. Behavioral/Emotional changes reviewed. Patient does feel comfortable with changes in eating behaviors and associated emotional changes. She was reminded that psychological counseling is available through the [facility] post-operatively. Recent Nutrient Concerns and Vitamin Supplementation Changes: none Notes/Comments: Pt is doing well and very happy with her weight loss. She plans to lose another 30 lbs and is on the right track. Visit completed by: Nanette Schrader RD * Josef Elder MD - 05/18/2024 10:20 AM EST Images from the original note were not included. MBS - 12 MONTH FOLLOW UP 05/18/24 PATIENT: Sloane Rinaldi DATE OF : 1950 HISTORY OF PRESENT ILLNESS Chief Complaint: 12 month follow-up status post SLEEVE GASTRECTOMY - aka SG Sloane Rinaldi is a 73 y.o. female who presents to the bariatric care center today for their 12 month evaluation following bariatric surgery with Dr. Nobles. The total weight lost is 70.2 pounds for a 45% EWL. Overall, the patient is satisfied with the weight loss and health benefits related to the bariatric intervention. Dietary compliance concerns: No Exercise and activity concerns: No Compliance and phychologic concerns: No Dysphagia and eating concerns: No Excessive skin concerns: No The patient is feeling well and denies any major complaints or GI symptoms. The dietary regimen andexercise activities are going well. The patient is compliant with protein intake and vitamin/trace element supplementation. Labs were Completed Laboratory results were normal Review of Symptoms Constitutional: negative for chills, fevers, night sweats, and weight loss Eyes: negative Ears, nose, mouth, throat, and face: negative Respiratory: negative for cough, dyspnea on exertion, hemoptysis, and sputum Cardiovascular: negative for chest pain, chest pressure/discomfort, dyspnea, irregular heart beat, palpitations, and syncope Integument/breasts: negative for dry skin and rash Gastrointestinal: negative for abdominal pain, constipation, diarrhea, dysphagia, melena, reflux symptoms, and vomiting Genitourinary:negative for dysuria, hematuria, and urinary incontinence Musculoskeletal:negative for back pain and myalgias Neurological: negative for dizziness, paresthesia, seizures, and weakness Behavioral/Psych: negative for anxiety, irritability, and sleep disturbance Hematologic/lymphatic: negative for bleeding, easy bruising, lymphadenopathy, and petechiae Endocrine: negative for temperature intolerance Allergic/Immunologic: negative for anaphylaxis and hay fever PAST HISTORIES Past Medical History: Diagnosis Date Anxiety 2014 Asthma Back pain COVID-19 vaccine series not completed 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 Elder TIBIA FRACTURE SURGERY Right plate and 7 srews Family History Problem Relation Name Age of Onset Asthma Father Frandy Abad Cancer Sister Eliana Hypertension Brother Jose Heart disease Brother Jose Diabetes Brother Jose Obesity Brother Jose Diabetes Paternal Grandmother Theresa Abad Vision loss Paternal Grandmother Theresa Abad Allergies Allergen Reactions Sulfa Antibiotics Hives Sulfamethoxazole-Trimethoprim Hives PHYSICAL EXAM BP 130/82 Pulse 92 Temp 36.2 C (97.2 F) Resp 17 Ht 5' 1.25 (1.556 m) Wt 193 lb 6.4 oz (87.7 kg) Comment: [facility] BMI 36.24 kg/m General: This patient is awake, alert, and oriented, with normal affect and is in no apparent distress. Cardiac: Regular rate and rhythm without evidence of murmur. Respiratory: Clear to auscultation bilaterally with normal effort. Abdomen: Obese, soft, non-tender, non-distended without masses/ No evidence of abdominal hernia / Incisions consistent with previous surgeries. Head and Neck: Obese, normocephalic and atraumatic/soft and supple, no lymphadenopathy or obvious bruits. No thyroidmegaly. Extremities: No cyanosis, clubbing or edema/ No calf tenderness/No restrictions of movement, is ambulatory without assistance. Neurological: Intact x 4 extremities, normal sensation, no focal deficits notes. Skin: Skin cool, warm and dry. No rashes or lesions noted. Rectal: Deferred LABORATORY STUDIES AND IMAGING Laboratory Studies: No results for input(s): NA, K, CL, CO2, BUN, CREATININE, GLUCOSE, CALCIUM in the last 72 hours. No results for input(s): WBC, RBC, HGB, HCT, MCV, MCH, MCHC, RDW, PLT, MPV in the last 72 hours. No results for input(s): ALKPHOS, ALT, AST, PROT, BILITOT, BILIDIR, LIPASE in the last 72 hours. No lab exists for component: LABALBU ASSESSMENT 12 months status post SLEEVE GASTRECTOMY - aka SG Visit Diagnoses: 1. History of sleeve gastrectomy 2. Deficiency of other specified B group vitamins 3. Deficiency of multiple nutrient elements 4. Class 2 severe obesity due to excess calories with serious comorbidity and body mass index (BMI)of 35.0 to 35.9 in adult (HCC) 5. Secondary hypertension PLAN Compliance with exercise and dietary regimen (see dietitian recommendations) Follow up with PCP for regular health maintenance vistis Follow up with obesity medicine team for annual bariatric follow up / bloodwork Patient Care Team: Bryan Barboza as PCP - General (Family Medicine) Josef Elder MD as Surgeon (General Surgery) Pretty Webster RN as Registered Nurse (Bariatrics) documented in this [facility] [id number] Telephone encounter Note* Telephone Encounter - HUSSAIN Perry CNP - 05/04/2024 9:37 AM EST Great, thanks! [facility] [id number] Telephone encounter Note* Telephone Encounter - Estefani Sanabria RD - 04/30/2024 4:39 PM EST Pt noted is has had recent abscess in tooth needing extraction, infection likely contributing to elevated ferritin level. Pt noted is currently taking 500 mg of calcium once daily, RD recommending decreasing to every other day at this time for improvement. Pt noted is drinking ~64 fl oz most days. Inquiring into elevated vitamin b12 level of 1345, RD noted no change in interventions warranted with slightly elevated b12 d/t not upper limit. RD encouraged maintaining adequate hydration. Pending recheck on calcium and ferritin in 1 month for improvement in levels. Routed to NATUROPATHIC PHYSICIAN. Evident [id number] Telephone encounter Note* Telephone Encounter - Estefani Sanabria RD - 04/28/2024 5:08 PM EST DOS 05/14/23 LSG TB Last OV: 11/14/2023 6M POP Next OV: 05/18/2024 12M POP Labs 04/24/2024 Ferritin 408 elevated Calcium 10.3 elevated Please see MyChart for pt and RD encounter RD reaching out to review abnormal lab values. PT noted with elevated ferritin, RD assessing for ongoing/chronic inflammatory conditions and referring to PCP for management. Noted with elevated calcium level, RD inquiring into fluid intake at this time. Pt response pending. [place]12-10-2024 [facility] Medical Records Department [address] [place] [address] Discharge Summary 03/16/24 1514 MR#: [id number] Acct: [id number] Name: SLOANE RINALDI Rep #: [id number] : 1950 73 From: No Cazares DO PCP: Dr. Bryan Barboza MD Status:DIS STEFAN Location: [place] [address] Providers Date of Admission: 03/15/24 Date of Discharge: 03/16/24 Primary Care Physician: Dr. Bryan Barboza MD Consultations 03/15/24 20:22 Consult: Tele-Neurology Routine Consulting Provider: [facility] Reason for Consult: Acute Ischemic Stroke/TIA EMERGENT Consult: No MD Notified: Yes Date Notified: 03/15/24 Time Notified: 21:29 Method of Notification: Answering Service Nursing Unit Staff Notify [facility] of Tele-Neurology Consult: Yes Reason For Visit: STROKELIKE SYMPTOMS Diagnosis Discharge Diagnosis (1) Paresthesias: Status: Acute Code(s): R20.2 - Paresthesia of skin Medications at Discharge Home Medications levothyroxine 100 mcg capsule 100 mcg PO DAILY 02/08/21 losartan 50 mg-hydrochlorothiazide 12.5 mg tablet 1 tab PO DAILY 02/08/21 aspirin 81 mg chewable tablet 81 mg PO BREAKFAST #0 tabs 03/16/24 atorvastatin 40 mg tablet 40 mg PO QHS #30 tabs 03/16/24 clopidogrel 75 mg tablet 75 mg PO DAILY #21 tabs 03/16/24 Hospital Course Operations None Procedures 2-D Echocardiogram, EKG and - (MRI brain/CTA head and neck/CT brain/CXR) Summary of Care Provided Minutes Spent on Discharge: 30 Hospital Course: Mrs. Rinaldi is a 73-year-old white female with a past medical history of hypertension and hypothyroidism who presented to emergency department at [facility] on 03/15/2020 for with acute onset of paresthesias in her left face, left arm, and left leg that started about 5 PM on the day of presentation. Patient reported she had never had anything like this previously and had no history of stroke. She denied having any motor issues and indicated this was only sensory. Symptoms lasted for about 20 minutes then resolved. She did not have symptoms at all while hospitalized in the emergency department or otherwise. NIH is were 0 throughout her hospital stay. Stroke alert was called on arrival given her symptoms. CT of the brain was unremarkable and CTA of the head and neck showed mild plaque in the bilateral cervical carotid arteries with mild calcification of the intracranial internal carotid arteries but no significant stenosis. Teleneurology was consulted and recommended admission for further workup. Vital signs on presentation showed temperature of 98.9, heart rate was 81, respiratory rate was 20 and blood pressure was 142/73 with a sat of 96% on room air. CBC was unremarkable. Coags were unremarkable. Chemistry panel showed only mild hypokalemia with potassium of 3.4 which was replaced and was otherwise unremarkable. Serum glucose was 81. Hemoglobin A1c was obtained given the stroke protocol and was found to be 5.2. Troponin was normal. Lipid panel showed a total cholesterol of 185 with an LDL of 111 and an HDL of 47. Triglycerides were 134. TSH was normal. She was admitted to the telemetry floor and stroke order set was utilized. Echocardiogram was negative for PFO/ASD and demonstrated EF of 70% with no other significant abnormalities. MRI showed 3 small foci of increased signal intensity on diffusion weighted images in the right subcortical white matter with 2 separate adjacent right superior lateral frontal lobe steward matter foci that were concerning for embolic phenomenon. Neurology evaluated the patient and recommended continuing aspirin and Plavix and statin, getting an event monitor at this time since these are currently considered cryptogenic strokes without another source and having her follow-up as an outpatient with neurology. Prescriptions for atorvastatin and clopidogrel were sent to local pharmacy. She is to continue Plavix for 21 days and then stop but continue her aspirin indefinitely. Blood pressure seem to be fairly well-controlled on her home medication so I will recommend continued outpatient follow-up with regards to her blood pressure monitoring however goal blood pressure is less than 130/80. Patient was discharged home in stable condition on 03/16/2024 and instructed follow-up with her primary care physician within the next 2 to 4 weeks and her neurology within the next month up as they are available. Event monitor was written for and should be sent to her house for continued follow-up. This was discussed with the patient prior to discharge. Discharge diagnoses: Stroke Hyperlipidemia Hypertension Hypothyroidism Hypokalemia-resolved Physical Exam Const alert, oriented x3, no apparent distress, no limitations, healthy appearing and well nourished Constitutional Narrative: Obese, older, white female, sitting in bed, family at bedside, leydi (more content not included)...[facility]08-09-2024 History of Present illness Narrative* Nyla Zhang, HUSSAIN - [employer] SAL[employer]ANT - 11/14/2023 11:15 AM EDT Images from the original note were not included. HPI, PHYSICAL EXAMINATION & PLAN POST-OP HPI: Patient here today for 6 month post-weight loss surgery follow up DOS 05/14/23 LSG TB The patient is feeling well. Denies nausea, vomiting, dysphagia, or any GERD Sx. Currently is on any PPI. Patient states diet and exercise is going fairly well. Currently is eating 65-75 gm/day protein, and is compliant with prescribed multivitamins and supplements. Review of Systems Constitutional: Negative for fatigue and fever. HENT: Negative for congestion. Respiratory: Negative for shortness of breath. Cardiovascular: Negative for chest pain and leg swelling. Gastrointestinal: Negative for abdominal distention, abdominal pain, constipation, diarrhea, nauseaand vomiting. Skin: Negative for color change. Patient is currently taking in 64 ounces of fluid daily. Patient is currently eating 5 meals/ snacks daily. Patient is currently walking for exercise daily / weekly. Vital signs are stable. Labs were Completed. All labs were: within an acceptable range LIPIDS ARE ELEVATED: DEFER TO PCP Physical Examination: BP 113/81 Pulse 94 Temp 36.2 C (97.2 F) Resp 19 Ht 5' 1.5 (1.562 m) Comment: [facility] Wt 209 lb 6.4 oz (95 kg) Comment: [facility] BMI 38.93 kg/m General: This patient is awake, alert, and oriented, and is in no apparent distress. Cardiac: Regular rate and rhythm without evidence of murmur. Respiratory: Clear to auscultation bilaterally. Abdomen: Obese, soft, non-tender, non-distended without masses/ No evidence of abdominal hernia / Incisions consistent with previous surgeries. Head and Neck: Obese, normocephalic and atraumatic/soft and supple, no lymphadenopathy or obvious bruits. Extremities: No cyanosis, clubbing or edema/ No calf tenderness/No restrictions of movement, is ambulatory without assistance. Neurological: Intact x 4 extremities, no focal deficits notes. Skin: No rashes or lesions noted. Rectal: Deferred Plan: 1). Discussed stopping PPI with patient. Patient is call if any mentioned symptoms return: persistent nausea all day, epigastric pain, pain radiating under either side of rib cage or pain in the middle of their back that is not improving. 2). Labs: normal 3). Diet and Exercise: RD discussed diet with patient during office visit. 4). Follow up at 12 month office visit with standard labs. 5). Psych concerns: no 6). If patient is a woman of childrearing age- 18-50. We discussed the importance of contraception during the first 12-18 months post op, and we discussed that fertility will increase following the procedure. Advised patient to discuss with her OBGYN regarding contraception. Patient counseled with good understanding verbalized. 7). Weight loss: Post-op Weight Metrics: %EBWL: % EBWL: 35% Weight Change Since Last Visit: Weight Change: -13.4 lbs Weight Change from Highest Pre-op Weight: Total Weight Change: -54.2 lbs 8 ) HTN: Patient currently taking losartan hydrochlorothiazide, tolerating 9) Hypothyroidism: Patient is currently on Synthroid, tolerating Orders Placed This Encounter Procedures Zinc (Sendout) These orders are set for an approximate date - they can be drawn up to 3 months prior to the Expected Date on this Req. Please send results to: Bryan Ruelas [address] [facility] [place] [address] [facility] [id number] - [phone] And if not done at a [place] [facility], please send to: [place] [address] Patient Name: Sloane Rinaldi - 1950 Order Created by : Sherice Caruso Standing Status: Future Number of Occurrences: 1 Standing Expiration Date: 11/12/2024 Folate These orders are set for an approximate date - they can be drawn up to 3 months prior to the Expected Date on this Req. Please send results to: Bryan Ruelas [address] [facility] [place] [address] [facility] [id number] - [phone] And if not done at a [facility] [facility], please send to: [address], [address] Patient Name: Sloane Rinaldi - 1950 Order Created by : Sherice Caruso Standing Status: Future Number of Occurrences: 1 Standing Expiration Date: 11/12/2024 Iron These orders are set for an approximate date - they can be drawn up to 3 months prior to the Expected Date on this Req. Please send results to: Bryan Barboza - [address] [facility] [place] [address] [facility] [id number] - [phone] And if not done at a [facility] [facility], please send to: [facility] - [address] [place] [address], [address] Patient Name: Sloane Rinaldi - 1950 Order Created by : Sherice Caruso Standing Status: Future Number of Occurrences: 1 Standing Expiration Date: 11/12/2024 Ferritin These orders are set for an approximate date - they can be drawn up to 3 months prior to the Expected Date on this Req. Please send results to: Bryan Barboza - [address] [place] [address] [facility] [address] - [phone] And if not done at a [facility] [facility], please send to: [address], [facility] Patient Name: Sloane Rinaldi - 1950 Order Created by : Sherice Caruso Standing Status: Future Number of Occurrences: 1 Standing Expiration Date: 11/12/2024 Magnesium These orders are set for an approximate date - they can be drawn up to 3 months prior to the Expected Date on this Req. Please send results to: Bryan Barboza - [address] [place] [address] [place] [id number] - [phone] And if not done at a [facility] [facility], please send to: [address], [facility] Patient Name: Sloane Rinaldi - 1950 Order Created by : Sherice Caruso Standing Status: Future Number of Occurrences: 1 Standing Expiration Date: 11/12/2024 Vitamin D Deficiency Screening (Vit D 25) These orders are set for an approximate date - they can be drawn up to 3 months prior to the Expected Date on this Req. Please send results to: Bryan Barboza - [address] [place] [address] [facility] [address] - [phone] And if not done at a [facility] [facility], please send to: [address], [address] Patient Name: Sloane Rinaldi - 1950 Order Created by : Sherice Caruso Standing Status: Future Number of Occurrences: 1 Standing Expiration Date: 11/12/2024 Vitamin B12 These orders are set for an approximate date - they can be drawn up to 3 months prior to the Expected Date on this Req. Please send results to: [address] [place] [address] [facility] [address] - [phone] And if not done at a [facility] [facility], please send to: [address], [facility] Patient Name: Sloane Ruelas 1950 Order Created by : Sherice Caruso Standing Status: Future Number of Occurrences: 1 Standing Expiration Date: 11/12/2024 Vitamin B1, whole blood ([facility]) These orders are set for an approximate date - they can be drawn up to 3 months prior to the Expected Date on this Req. Please send results to: [address] [place] [address] [facility] [id number] - [phone] And if not done at a [facility], please send to: [address], [address] Patient Name: Sloane Rinaldi - 1950 Order Created by : Sherice Caruso Standing Status: Future Number of Occurrences: 1 Standing Expiration Date: 11/12/2024 Lipid panel These orders are set for an approximate date - they can be drawn up to 3 months prior to the Expected Date on this Req. Please send results to: Bryan Ruelas [address] [facility] [address] - [phone] And if not done at a [facility], please send to: [address], [address] Patient Name: Sloane Rinaldi - 1950 Order Created by : Sherice Caruso Standing Status: Future Number of Occurrences: 1 Standing Expiration Date: 11/12/2024 Comprehensive metabolic panel These orders are set for an approximate date - they can be drawn up to 3 months prior to the Expected Date on this Req. Please send results to: Bryan Barboza - [address] [facility] [address] [facility] [address] - [phone] And if not done at a [facility], please send to: [address], [address] Patient Name: Sloane Rinaldi - 1950 Order Created by : Sherice Caruso Standing Status: Future Number of Occurrences: 1 Standing Expiration Date: 11/12/2024 CBC These orders are set for an approximate date - they can be drawn up to 3 months prior to the Expected Date on this Req. Please send results to: Bryan Marie [facility] [address] [facility] [address] - [phone] And if not done at a [facility], please send to: [address], [address] Patient Name: Sloane Rinaldi - 1950 Order Created by : Sherice Caruso Standing Status: Future Number of Occurrences: 1 Standing Expiration Date: 11/12/2024 Medications ordered during this encounter: Outpatient Encounter Medications as of 11/14/2023 Medication Sig Dispense Refill albuterol 108 (90 Base) MCG/ACT inhaler Daily as needed. BIOTIN 5000 PO Take by mouth. Calcium Carbonate Antacid (CALCIUM CARBONATE PO) Take 4,000 mg by mouth daily. Cyanocobalamin (B-12) [address] 1 tablet under the tongue daily. levothyroxine (Synthroid, Levoxyl) 100 MCG tablet Take 100 mcg by mouth daily. TAKING HALF 50MCG losartan-hydroCHLOROthiazide (Hyzaar) 50-12.5 MG tablet Take 1 tablet by mouth daily. nystatin (Mycostatin) 866651 UNIT/GM powder Apply 1 Application topically 2 times daily. Apply topically to affected area two times daily. 60 g 2 omeprazole (PriLOSEC) [address] capsule Take 1 capsule (20 mg) by mouth daily. Do not crush or chew.(Patient taking differently: Take 20 mg by mouth daily. Do not crush or chew.) 90 capsule 1 PEDIATRIC MULTIVITAMINS-IRON PO Take 1 tablet by mouth daily. VITAMIN D PO Take 4,000 Int'l Units by mouth daily. No facility-administered encounter medications on file as of 11/14/2023. Visit Diagnoses: 1. Prediabetes 2. Deficiency of multiple nutrient elements 3. Deficiency of other specified B group vitamins 4. History of sleeve gastrectomy 5. Hypothyroidism, unspecified type 6. Back pain, unspecified back location, unspecified back pain laterality, unspecified chronicity 7. Secondary hypertension 8. Arthralgia, unspecified joint 9. Iron deficiency 10. Vitamin D deficiency Current Medications: Patient's Medications New Prescriptions No medications on file Previous Medications ALBUTEROL 108 (90 BASE) MCG/ACT INHALER Daily as needed. BIOTIN 5000 PO Take by mouth. CALCIUM CARBONATE ANTACID (CALCIUM CARBONATE PO) Take 4,000 mg by mouth daily. CYANOCOBALAMIN (B-12) [address] 1 tablet under the tongue daily. LEVOTHYROXINE (SYNTHROID, LEVOXYL) 100 MCG TABLET Take 100 mcg by mouth daily. TAKING HALF 50MCG LOSARTAN-HYDROCHLOROTHIAZIDE (HYZAAR) 50-12.5 MG TABLET Take 1 tablet by mouth daily. NYSTATIN (MYCOSTATIN) 851630 UNIT/GM POWDER Apply 1 Application topically 2 times daily. Apply topically to affected area two times daily. OMEPRAZOLE (PRILOSEC) [address] CAPSULE Take 1 capsule (20 mg) by mouth daily. Do not crush or chew. PEDIATRIC MULTIVITAMINS-IRON PO Take 1 tablet by mouth daily. VITAMIN D PO Take 4,000 Int'l Units by mouth daily. Modified Medications No medications on file Discontinued Medications No medications on file * Ana Valentin RD - 11/14/2023 11:15 AM EDT [facility] > 6 MONTH POST-OPERATIVE DIETITIAN VISIT Date: 11/14/23 Patient's weight decreased by: 54.2 lbs Patient doesconsume 5-6 small meals daily Patient s portions are adequate for current diet: -1 cup Protein requirements discussed- currently consuming at least 65 grams protein daily. Current protein sources: chicken, salmon, tuna, beef, cottage cheese, beans, nuts, peñaloza, egg, cheese, protein shakes Recommendations:none Fluid requirements discussed. Current Fluid Intake: at least 64 oz/day Patient does drink sugar-free, caffeine-free and carbonation-free fluids only. Patient does wait 30 minutes before and after meals to drink Exercise activities discussed. Patient does currently exercise. She was reminded that regular exercise is critical part of a successful outcome following weight loss surgery. (Walking 15 min every other day) Behavioral/Emotional changes reviewed. Patient does feel comfortable with changes in eating behaviors and associated emotional changes. She was reminded that psychological counseling is available [facility] post[facility]. Recent Nutrient Concerns and Vitamin Supplementation Changes: Pt compliant with vitamin and mineralprotocol. Lab WNL. Notes/Comments: Pt doing well. Pt encouraged to call/Mychart with questions. Visit completed by: Ana Valentin RD documented in this [facility]08-09-2024 History of Present illness Narrative* HUSSAIN Smallwood CNP - 11/14/2023 11:15 AM EDT Images from the original note were not included. HPI, PHYSICAL EXAMINATION & PLAN POST-OP HPI: Patient here today for 6 month post-weight loss surgery follow up DOS 05/14/23 LSG TB The patient is feeling well. Denies nausea, vomiting, dysphagia, or any GERD Sx. Currently is on any PPI. Patient states diet and exercise is going fairly well. Currently is eating 65-75 gm/day protein, and is compliant with prescribed multivitamins and supplements. Review of Systems Constitutional: Negative for fatigue and fever. HENT: Negative for congestion. Respiratory: Negative for shortness of breath. Cardiovascular: Negative for chest pain and leg swelling. Gastrointestinal: Negative for abdominal distention, abdominal pain, constipation, diarrhea, nauseaand vomiting. Skin: Negative for color change. Patient is currently taking in 64 ounces of fluid daily. Patient is currently eating 5 meals/ snacks daily. Patient is currently walking for exercise daily / weekly. Vital signs are stable. Labs were Completed. All labs were: within an acceptable range LIPIDS ARE ELEVATED: DEFER TO PCP Physical Examination: BP 113/81 Pulse 94 Temp 36.2 C (97.2 F) Resp 19 Ht 5' 1.5 (1.562 m) Comment: [facility] Wt 209 lb 6.4 oz (95 kg) Comment: [facility] BMI 38.93 kg/m General: This patient is awake, alert, and oriented, and is in no apparent distress. Cardiac: Regular rate and rhythm without evidence of murmur. Respiratory: Clear to auscultation bilaterally. Abdomen: Obese, soft, non-tender, non-distended without masses/ No evidence of abdominal hernia / Incisions consistent with previous surgeries. Head and Neck: Obese, normocephalic and atraumatic/soft and supple, no lymphadenopathy or obvious bruits. Extremities: No cyanosis, clubbing or edema/ No calf tenderness/No restrictions of movement, is ambulatory without assistance. Neurological: Intact x 4 extremities, no focal deficits notes. Skin: No rashes or lesions noted. Rectal: Deferred Plan: 1). Discussed stopping PPI with patient. Patient is call if any mentioned symptoms return: persistent nausea all day, epigastric pain, pain radiating under either side of rib cage or pain in the middle of their back that is not improving. 2). Labs: normal 3). Diet and Exercise: RD discussed diet with patient during office visit. 4). Follow up at 12 month office visit with standard labs. 5). Psych concerns: no 6). If patient is a woman of childrearing age- 18-50. We discussed the importance of contraception during the first 12-18 months post op, and we discussed that fertility will increase following the procedure. Advised patient to discuss with her OBGYN regarding contraception. Patient counseled with good understanding verbalized. 7). Weight loss: Post-op Weight Metrics: %EBWL: % EBWL: 35% Weight Change Since Last Visit: Weight Change: -13.4 lbs Weight Change from Highest Pre-op Weight: Total Weight Change: -54.2 lbs 8 ) HTN: Patient currently taking losartan hydrochlorothiazide, tolerating 9) Hypothyroidism: Patient is currently on Synthroid, tolerating Orders Placed This Encounter Procedures Zinc (Sendout) These orders are set for an approximate date - they can be drawn up to 3 months prior to the Expected Date on this Req. Please send results to: Bryan [address] [facility] [address] - [phone] And if not done at a [facility], please send to: [address], [address] Patient Name: Sloane Rinaldi - 1950 Order Created by : Sherice Caruso Standing Status: Future Number of Occurrences: 1 Standing Expiration Date: 11/12/2024 Folate These orders are set for an approximate date - they can be drawn up to 3 months prior to the Expected Date on this Req. Please send results to: Bryan Ruelas [address] [facility] [id number] - [phone] And if not done at a [facility], please send to: [address], [address] Patient Name: Sloane Rinaldi - 1950 Order Created by : Sherice Caruso Standing Status: Future Number of Occurrences: 1 Standing Expiration Date: 11/12/2024 Iron These orders are set for an approximate date - they can be drawn up to 3 months prior to the Expected Date on this Req. Please send results to: Bryan Barboza Jessenia [address] [facility] [address] - [phone] And if not done at a [facility], please send to: [address], [address] Patient Name: Sloane Rinaldi - 1950 Order Created by : Sherice Caruso Standing Status: Future Number of Occurrences: 1 Standing Expiration Date: 11/12/2024 Ferritin These orders are set for an approximate date - they can be drawn up to 3 months prior to the Expected Date on this Req. Please send results to: Bryan Ruelas [address] [facility] [address] - [phone] And if not done at a [facility], please send to: [address], [address] Patient Name: Sloane Rinaldi - 1950 Order Created by : Sherice Caruso Standing Status: Future Number of Occurrences: 1 Standing Expiration Date: 11/12/2024 Magnesium These orders are set for an approximate date - they can be drawn up to 3 months prior to the Expected Date on this Req. Please send results to: Bryan Ruelas [address] [place] [id number] - [phone] And if not done at a [facility], please send to: [address], [address] Patient Name: Slonae Rinaldi - 1950 Order Created by : Sherice Caruso Standing Status: Future Number of Occurrences: 1 Standing Expiration Date: 11/12/2024 Vitamin D Deficiency Screening (Vit D 25) These orders are set for an approximate date - they can be drawn up to 3 months prior to the Expected Date on this Req. Please send results to: Bryan Barboza - [address] [place] [address] - [phone] And if not done at a [facility], please send to: [address], [address] Patient Name: Sloane Rinaldi - 1950 Order Created by : Sherice Caruso Standing Status: Future Number of Occurrences: 1 Standing Expiration Date: 11/12/2024 Vitamin B12 These orders are set for an approximate date - they can be drawn up to 3 months prior to the Expected Date on this Req. Please send results to: Bryan Barboza - [address] [facility] [address] - [phone] And if not done at a [facility], please send to: [address], [facility] Patient Name: Sloane Rinaldi - 1950 Order Created by : Sherice Caruso Standing Status: Future Number of Occurrences: 1 Standing Expiration Date: 11/12/2024 Vitamin B1, whole blood ([facility]) These orders are set for an approximate date - they can be drawn up to 3 months prior to the Expected Date on this Req. Please send results to: Bryan Barboza Jessenia [address] [place] [id number] - [phone] And if not done at a [facility], please send to: [address], [facility] Patient Name: Sloane Rinaldi - 1950 Order Created by : Sherice Caruso Standing Status: Future Number of Occurrences: 1 Standing Expiration Date: 11/12/2024 Lipid panel These orders are set for an approximate date - they can be drawn up to 3 months prior to the Expected Date on this Req. Please send results to: Bryan Barboza - [address] [place] [id number] - [phone] And if not done at a [facility], please send to: [address], [address] Patient Name: Sloane Rinaldi - 1950 Order Created by : Sherice Caruso Standing Status: Future Number of Occurrences: 1 Standing Expiration Date: 11/12/2024 Comprehensive metabolic panel These orders are set for an approximate date - they can be drawn up to 3 months prior to the Expected Date on this Req. Please send results to: Bryan Ruelas [address] [facility] 105 [facility] [address] - [phone] And if not done at a [facility], please send to: [facility] - [address] [place] [address], [address] Patient Name: Sloane Rinaldi - 1950 Order Created by : Sherice Caruso Standing Status: Future Number of Occurrences: 1 Standing Expiration Date: 11/12/2024 CBC These orders are set for an approximate date - they can be drawn up to 3 months prior to the Expected Date on this Req. Please send results to: Bryan Ruelas [address] [facility] [address] [facility] [id number] - [phone] And if not done at a [facility], please send to: [facility] - [address] [place] [address], [address] Patient Name: Sloane Rinaldi - 1950 Order Created by : Sherice Caruso Standing Status: Future Number of Occurrences: 1 Standing Expiration Date: 11/12/2024 Medications ordered during this encounter: Outpatient Encounter Medications as of 11/14/2023 Medication Sig Dispense Refill albuterol 108 (90 Base) MCG/ACT inhaler Daily as needed. BIOTIN 5000 PO Take by mouth. Calcium Carbonate Antacid (CALCIUM CARBONATE PO) Take 4,000 mg by mouth daily. Cyanocobalamin (B-12) [address] 1 tablet under the tongue daily. levothyroxine (Synthroid, Levoxyl) 100 MCG tablet Take 100 mcg by mouth daily. TAKING HALF 50MCG losartan-hydroCHLOROthiazide (Hyzaar) 50-12.5 MG tablet Take 1 tablet by mouth daily. nystatin (Mycostatin) 611146 UNIT/GM powder Apply 1 Application topically 2 times daily. Apply topically to affected area two times daily. 60 g 2 omeprazole (PriLOSEC) [address] capsule Take 1 capsule (20 mg) by mouth daily. Do not crush or chew.(Patient taking differently: Take 20 mg by mouth daily. Do not crush or chew.) 90 capsule 1 PEDIATRIC MULTIVITAMINS-IRON PO Take 1 tablet by mouth daily. VITAMIN D PO Take 4,000 Int'l Units by mouth daily. No facility-administered encounter medications on file as of 11/14/2023. Visit Diagnoses: 1. Prediabetes 2. Deficiency of multiple nutrient elements 3. Deficiency of other specified B group vitamins 4. History of sleeve gastrectomy 5. Hypothyroidism, unspecified type 6. Back pain, unspecified back location, unspecified back pain laterality, unspecified chronicity 7. Secondary hypertension 8. Arthralgia, unspecified joint 9. Iron deficiency 10. Vitamin D deficiency Current Medications: Patient's Medications New Prescriptions No medications on file Previous Medications ALBUTEROL 108 (90 BASE) MCG/ACT INHALER Daily as needed. BIOTIN 5000 PO Take by mouth. CALCIUM CARBONATE ANTACID (CALCIUM CARBONATE PO) Take 4,000 mg by mouth daily. CYANOCOBALAMIN (B-12) [address] 1 tablet under the tongue daily. LEVOTHYROXINE (SYNTHROID, LEVOXYL) 100 MCG TABLET Take 100 mcg by mouth daily. TAKING HALF 50MCG LOSARTAN-HYDROCHLOROTHIAZIDE (HYZAAR) 50-12.5 MG TABLET Take 1 tablet by mouth daily. NYSTATIN (MYCOSTATIN) 922830 UNIT/GM POWDER Apply 1 Application topically 2 times daily. Apply topically to affected area two times daily. OMEPRAZOLE (PRILOSEC) [address] CAPSULE Take 1 capsule (20 mg) by mouth daily. Do not crush or chew. PEDIATRIC MULTIVITAMINS-IRON PO Take 1 tablet by mouth daily. VITAMIN D PO Take 4,000 Int'l Units by mouth daily. Modified Medications No medications on file Discontinued Medications No medications on file * Ana Valentin RD - 11/14/2023 11:15 AM EDT [facility] > 6 MONTH POST-OPERATIVE DIETITIAN VISIT Date: 11/14/23 Patient's weight decreased by: 54.2 lbs Patient doesconsume 5-6 small meals daily Patient s portions are adequate for current diet: -1 cup Protein requirements discussed- currently consuming at least 65 grams protein daily. Current protein sources: chicken, salmon, tuna, beef, cottage cheese, beans, nuts, peñaloza, egg, cheese, protein shakes Recommendations:none Fluid requirements discussed. Current Fluid Intake: at least 64 oz/day Patient does drink sugar-free, caffeine-free and carbonation-free fluids only. Patient does wait 30 minutes before and after meals to drink Exercise activities discussed. Patient does currently exercise. She was reminded that regular exercise is critical part of a successful outcome following weight loss surgery. (Walking 15 min every other day) Behavioral/Emotional changes reviewed. Patient does feel comfortable with changes in eating behaviors and associated emotional changes. She was reminded that psychological counseling is available [facility] post-[facility]. Recent Nutrient Concerns and Vitamin Supplementation Changes: Pt compliant with vitamin and mineralprotocol. Lab WNL. Notes/Comments: Pt doing well. Pt encouraged to call/Mychart with questions. Visit completed by: Ana Valentin RD documented in this [facility]08-09-2024 Miscellaneous Notes* Addendum Note - Kole Asher - 11/14/2023 11:15 AM EDTAddended by: KOLE ASHER on: 04/24/2024 11:07 AM Modules accepted: Orders documented in this [facility]08-09-2024 Note* Addendum Note - Kole Asher - 11/14/2023 11:15 AM EDTAddended by: KOLE ASHER on: 04/24/2024 11:07 AM Modules accepted: [id number] Telephone encounter Note* Telephone Encounter - Nyla Zhang APRN - [employer] - 10/30/2023 2:19 PM EDT Patient sent MyChart message regarding elevated lipids. Advised patient to follow-up with PCP regarding elevated lipids. [id number] Miscellaneous Notes* Telephone Encounter - HUSSAIN Smallwood CNP - 10/30/2023 2:19 PM EDT Patient sent MyChart message regarding elevated lipids. Advised patient to follow-up with PCP regarding elevated lipids. documented in this [facility]07-23-2024 Telephone encounter Note* Telephone Encounter - HUSSAIN Smallwood CNP - 10/28/2023 9:43 AM EDT MyChart sent to patient to follow-up with primary care regarding elevated lipid panel. Labs routed to PCP. [id number] Miscellaneous Notes* Telephone Encounter - HUSSAIN Smallwood CNP - 10/28/2023 9:43 AM EDT MyChart sent to patient to follow-up with primary care regarding elevated lipid panel. Labs routed to PCP. documented in this [facility]05-09-2024 History of Present illness Narrative* Nyla Zhang NP - 08/14/2023 1:35 PM EDT Images from the original note were not included. HPI, PHYSICAL EXAMINATION & PLAN POST-OP HPI: Patient here today for 3 month post-weight loss surgery follow up DOS 05/14/23 LSG The patient is feeling well. Denies nausea, vomiting, dysphagia, or any GERD Sx. Currently is on any PPI. Patient states diet and exercise is going fairly well. Currently is eating 65-75 gm/day protein, and is compliant with prescribed multivitamins and supplements. Patient is currently taking in 64 ounces of fluid daily. Patient is currently eating 5-6 meals/ snacks daily. Patient is currently walking for exercise daily / weekly. Review of Systems Constitutional: Negative for fatigue and fever. HENT: Negative for congestion. Respiratory: Negative for shortness of breath. Cardiovascular: Negative for chest pain and leg swelling. Gastrointestinal: Negative for abdominal distention, abdominal pain, constipation, diarrhea, nauseaand vomiting. Skin: Negative for color change. Vital signs are stable. Labs were Completed. All labs were: within an acceptable range Physical Examination: BP (!) 143/76 Pulse 105 Temp (!) 35.7 C (96.3 F) Resp 16 Ht 5' 1.5 (1.562 m) Comment: [facility] Wt 222 lb 12.8 oz (101 kg) BMI 41.42 kg/m General: This patient is awake, alert, and oriented, and is in no apparent distress. Cardiac: Regular rate and rhythm without evidence of murmur. Respiratory: Clear to auscultation bilaterally. Abdomen: Obese, soft, non-tender, non-distended without masses/ No evidence of abdominal hernia / Incisions consistent with previous surgeries. Head and Neck: Obese, normocephalic and atraumatic/soft and supple, no lymphadenopathy or obvious bruits. Extremities: No cyanosis, clubbing or edema/ No calf tenderness/No restrictions of movement, is ambulatory without assistance. Neurological: Intact x 4 extremities, no focal deficits notes. Skin: Yeast rashes under pannus or lesions noted. Rectal: Deferred Plan: 1) Continue PPI until 6 month office visit 2) Labs: normal 3) Diet and Exercise: Discussed with RD at office visit. 4). Follow up at 6 month office visit with standard labs 5). Psych concerns: no 6). If patient is a woman of childrearing age- 18-50. We discussed the importance of contraception during the first 12-18 months post op, and we discussed that fertility will increase following the procedure. Advised patient to discuss with her OBGYN regarding contraception. Patient counseled with good understanding verbalized. 7). Weight loss: Post-op Weight Metrics: %EBWL: % EBWL: 26% Weight Change Since Last Visit: Weight Change: -13.2 lbs Weight Change from Highest Pre-op Weight: Total Weight Change: -40.8 lbs 8 ) HTN: Patient currently taking losartan-hydrochlorothiazide, tolerating 9 ) Hypothyroidism: Patient is taking Synthroid, tolerating 10) Yeast dermatitis - Nystatin called to pharmacy Orders Placed This Encounter Procedures Zinc These orders are set for an approximate date - they can be drawn up to 3 months prior to the Expected Date on this Req. Please send results to: Bryan Ruelas [address] [facility] [address] [facility] [address] - [phone] And if not done at a [facility], please send to: [place] [id number] Patient Name: Sloane Rinaldi - 1950 Order Created by : Sherice Caruso Standing Status: Future Number of Occurrences: 1 Standing Expiration Date: 08/13/2024 Folate These orders are set for an approximate date - they can be drawn up to 3 months prior to the Expected Date on this Req. Please send results to: Bryan Ruelas [address] [facility] [address] [facility] [id number] - [phone] And if not done at a [facility], please send to: [address], [address] Patient Name: Sloane Rinaldi - 1950 Order Created by : Sherice Caruso Standing Status: Future Number of Occurrences: 1 Standing Expiration Date: 08/13/2024 Iron These orders are set for an approximate date - they can be drawn up to 3 months prior to the Expected Date on this Req. Please send results to: Bryan Barboza - [address] [facility] [place] [address] [facility] [address] - [phone] And if not done at a [facility], please send to: [address], [address] Patient Name: Sloane Rinaldi - 1950 Order Created by : Sherice Caruso Standing Status: Future Number of Occurrences: 1 Standing Expiration Date: 08/13/2024 Ferritin These orders are set for an approximate date - they can be drawn up to 3 months prior to the Expected Date on this Req. Please send results to: [address] [place] [address] - [phone] And if not done at a [facility], please send to: [address], [address] Patient Name: Sloane Ruelas 1950 Order Created by : Sherice Caruso Standing Status: Future Number of Occurrences: 1 Standing Expiration Date: 08/13/2024 Magnesium These orders are set for an approximate date - they can be drawn up to 3 months prior to the Expected Date on this Req. Please send results to: Bryan Ruelas [address] [place] [address] - [phone] And if not done at a [facility], please send to: [address], [address] Patient Name: Sloane Rinaldi - 1950 Order Created by : Sherice Caruso Standing Status: Future Number of Occurrences: 1 Standing Expiration Date: 08/13/2024 Vitamin D Deficiency Screening (Vit D 25) These orders are set for an approximate date - they can be drawn up to 3 months prior to the Expected Date on this Req. Please send results to: Bryan Ruelas [address] [place] [address] - [phone] And if not done at a [facility], please send to: [address] [place], [address] Patient Name: Sloane Rinaldi - 1950 Order Created by : Sherice Caruso Standing Status: Future Number of Occurrences: 1 Standing Expiration Date: 08/13/2024 Vitamin B12 These orders are set for an approximate date - they can be drawn up to 3 months prior to the Expected Date on this Req. Please send results to: Bryan Ruelas [address] [facility] [address] - [phone] And if not done at a [facility], please send to: [address], [address] Patient Name: Sloane Ruelas 1950 Order Created by : Sherice Caruso Standing Status: Future Number of Occurrences: 1 Standing Expiration Date: 08/13/2024 Vitamin B1, whole blood These orders are set for an approximate date - they can be drawn up to 3 months prior to the Expected Date on this Req. Please send results to: [address] [facility] [address] - [phone] And if not done at a [facility], please send to: [address], [address] Patient Name: Sloane Rinaldi - 1950 Order Created by : Sherice Caruso Standing Status: Future Number of Occurrences: 1 Standing Expiration Date: 08/13/2024 Lipid panel These orders are set for an approximate date - they can be drawn up to 3 months prior to the Expected Date on this Req. Please send results to: Bryan Barboza - [address] [facility] [address] - [phone] And if not done at a [facility], please send to: [address], [address] Patient Name: Sloane Rinaldi - 1950 Order Created by : Sherice Caruso Standing Status: Future Number of Occurrences: 1 Standing Expiration Date: 08/13/2024 Comprehensive metabolic panel These orders are set for an approximate date - they can be drawn up to 3 months prior to the Expected Date on this Req. Please send results to: Bryan Barboza - [address] [facility] [address] - [phone] And if not done at a [facility], please send to: [place] [address] Patient Name: Sloane Ruelas 1950 Order Created by : Sherice Caruso Standing Status: Future Number of Occurrences: 1 Standing Expiration Date: 08/13/2024 CBC These orders are set for an approximate date - they can be drawn up to 3 months prior to the Expected Date on this Req. Please send results to: Bryan Ruelas [address] [facility] [address] - [phone] And if not done at a [facility], please send to: [address], [facility] Patient Name: Sloane Ruelas 1950 Order Created by : Sherice Caruso Standing Status: Future Number of Occurrences: 1 Standing Expiration Date: 08/13/2024 Medications ordered during this encounter: Outpatient Encounter Medications as of 08/14/2023 Medication Sig Dispense Refill albuterol 108 (90 Base) MCG/ACT inhaler Daily as needed. BIOTIN 5000 PO Take by mouth. Calcium Carbonate Antacid (CALCIUM CARBONATE PO) Take 4,000 mg by mouth daily. Cyanocobalamin (B-12) [address] 1 tablet under the tongue daily. levothyroxine (Synthroid, Levoxyl) 100 MCG tablet Take 100 mcg by mouth daily. losartan-hydroCHLOROthiazide (Hyzaar) 50-12.5 MG tablet Take 1 tablet by mouth daily. omeprazole (PriLOSEC) [address] capsule Take 1 capsule (20 mg) by mouth daily. Do not crush or chew.(Patient taking differently: Take 20 mg by mouth daily. Do not crush or chew.) 90 capsule 1 PEDIATRIC MULTIVITAMINS-IRON PO Take 1 tablet by mouth daily. VITAMIN D PO Take 4,000 Int'l Units by mouth daily. [] ursodiol (Actigall) 300 MG capsule Take 1 capsule (300 mg) by mouth 2 times daily. 180 capsule 0 No facility-administered encounter medications on file as of 08/14/2023. Visit Diagnoses: 1. Arthralgia, unspecified joint 2. GERD without esophagitis 3. Hypothyroidism, unspecified type 4. Primary hypertension 5. Morbid obesity with BMI of 40.0-44.9, adult (HCC) 6. Deficiency of multiple nutrient elements Current Medications: Patient's Medications New Prescriptions No medications on file Previous Medications ALBUTEROL 108 (90 BASE) MCG/ACT INHALER Daily as needed. BIOTIN 5000 PO Take by mouth. CALCIUM CARBONATE ANTACID (CALCIUM CARBONATE PO) Take 4,000 mg by mouth daily. CYANOCOBALAMIN (B-12) [address] 1 tablet under the tongue daily. LEVOTHYROXINE (SYNTHROID, LEVOXYL) 100 MCG TABLET Take 100 mcg by mouth daily. LOSARTAN-HYDROCHLOROTHIAZIDE (HYZAAR) 50-12.5 MG TABLET Take 1 tablet by mouth daily. OMEPRAZOLE (PRILOSEC) [address] CAPSULE Take 1 capsule (20 mg) by mouth daily. Do not crush or chew. PEDIATRIC MULTIVITAMINS-IRON PO Take 1 tablet by mouth daily. VITAMIN D PO Take 4,000 Int'l Units by mouth daily. Modified Medications No medications on file Discontinued Medications No medications on file * Sherice Caruso - 08/14/2023 1:35 PM EDT [facility] PROGRESS NOTE POST WEIGHT LOSS SURGERY FOLLOW UP Patient: Sloane Rinaldi Service Date: 08/14/2023 Patient is 3 month(s) s/p Sleeve Gastrectomy Today's Metrics: Post-Surgical Weight Loss Date: 08/14/23 Height: 5' 1.5 (156.2 cm) Weight: 222 lb 12.8 oz (101 kg) BMI: 41.41 Weight Change: -13.2 lbs Total Weight Change: -40.8 lbs % EBWL: 26% Comments: 3M Pre-op Weight Metrics: Post-op Weight Metrics: %EBWL: % EBWL: 26% Weight Change Since Last Visit: Weight Change: -13.2 lbs Weight Change from Highest Pre-op Weight: Total Weight Change: -40.8 lbs Patient has the following questions: None Reported Pain: Patient rates pain on scale 0-10 as: 0 Exercise Compliance: Exercising: yes If yes: Type: walking Times per week: 5-6 Min per session: 10-15 Falls Risk Assessment Patient does take medications which affect BP or mental status Patient does not have newly prescribed or changed dosage of medications within past 30 days which affect BP or mental status Patient has not fallen in the past 2 months Patient does not demonstrate unsteady gait Patient uses the following ambulatory assistive devices: none Patient states the presence of the following traits which increases risk of fall: none Patient is not on home O2 Labs Completed: yes - If NO, patient instructed to get labs drawn today or LYSSA If YES: Labs completed at [facility]? yes If yes see Labs Tab Labs completed at Non-[facility] facility? no If yes see Encounters Tab - Orders only - Historical Provider - Date: Completed by: Sherice Caruso * Ana Valentin RD - 08/14/2023 1:35 PM EDT [facility] 3 MONTH POST-OPERATIVE DIETITIAN VISIT Date: 08/14/23 Patient's weight decreased by: 40.8 lbs Patient does consume 5-6 small meals daily Patient s portions are adequate for current diet: -1 cup Protein requirements discussed- currently consuming at least 65 grams of protein daily. Current protein sources: eggs, peñaloza, sausage, tuna, cheese, chicken, nuts, protein shake Recommendations:none Fluid requirements discussed. Current Fluid Intake: 58-65 oz/day Patient does drink sugar-free, caffeine-free and carbonation-free fluids only. Patient does waiting 30 minutes before and after meals to drink Exercise activities discussed. Patient does currently exercising. She was reminded that regular exercise is critical part of a successful outcome following weight loss surgery. (Walking 15 min once per day) Behavioral/Emotional changes reviewed. Patient does feel comfortable with changes in eating behaviors and associated emotional changes. She was reminded that psychological counseling is available through the [facility] post-operatively. Patient told she may switch to non-chewable vitamins and calcium citrate. Recent Nutrient Concerns and Vitamin Supplementation Changes: Pt compliant with vitamin/mineral protocol. Labs WNL. Notes/Comments: Pt doing well. Pt encouraged to call/Mychart with questions. Visit completed by: Ana Valentin RD documented in this [facility] [place]05-09-2024 History of Present illness Narrative* Nyla Zhang, SEAM FINISHER - [employer] - 08/14/2023 1:35 PM EDT Images from the original note were not included. HPI, PHYSICAL EXAMINATION & PLAN POST-OP HPI: Patient here today for 3 month post-weight loss surgery follow up DOS 05/14/23 LSG The patient is feeling well. Denies nausea, vomiting, dysphagia, or any GERD Sx. Currently is on any PPI. Patient states diet and exercise is going fairly well. Currently is eating 65-75 gm/day protein, and is compliant with prescribed multivitamins and supplements. Patient is currently taking in 64 ounces of fluid daily. Patient is currently eating 5-6 meals/ snacks daily. Patient is currently walking for exercise daily / weekly. Review of Systems Constitutional: Negative for fatigue and fever. HENT: Negative for congestion. Respiratory: Negative for shortness of breath. Cardiovascular: Negative for chest pain and leg swelling. Gastrointestinal: Negative for abdominal distention, abdominal pain, constipation, diarrhea, nauseaand vomiting. Skin: Negative for color change. Vital signs are stable. Labs were Completed. All labs were: within an acceptable range Physical Examination: BP (!) 143/76 Pulse 105 Temp (!) 35.7 C (96.3 F) Resp 16 Ht 5' 1.5 (1.562 m) Comment: bcc Wt 222 lb 12.8 oz (101 kg) BMI 41.42 kg/m General: This patient is awake, alert, and oriented, and is in no apparent distress. Cardiac: Regular rate and rhythm without evidence of murmur. Respiratory: Clear to auscultation bilaterally. Abdomen: Obese, soft, non-tender, non-distended without masses/ No evidence of abdominal hernia / Incisions consistent with previous surgeries. Head and Neck: Obese, normocephalic and atraumatic/soft and supple, no lymphadenopathy or obvious bruits. Extremities: No cyanosis, clubbing or edema/ No calf tenderness/No restrictions of movement, is ambulatory without assistance. Neurological: Intact x 4 extremities, no focal deficits notes. Skin: Yeast rashes under pannus or lesions noted. Rectal: Deferred Plan: 1) Continue PPI until 6 month office visit 2) Labs: normal 3) Diet and Exercise: Discussed with RD at office visit. 4). Follow up at 6 month office visit with standard labs 5). Psych concerns: no 6). If patient is a woman of childrearing age- 18-50. We discussed the importance of contraception during the first 12-18 months post op, and we discussed that fertility will increase following the procedure. Advised patient to discuss with her OBGYN regarding contraception. Patient counseled with good understanding verbalized. 7). Weight loss: Post-op Weight Metrics: %EBWL: % EBWL: 26% Weight Change Since Last Visit: Weight Change: -13.2 lbs Weight Change from Highest Pre-op Weight: Total Weight Change: -40.8 lbs 8 ) HTN: Patient currently taking losartan-hydrochlorothiazide, tolerating 9 ) Hypothyroidism: Patient is taking Synthroid, tolerating 10) Yeast dermatitis - Nystatin called to pharmacy Orders Placed This Encounter Procedures Zinc These orders are set for an approximate date - they can be drawn up to 3 months prior to the Expected Date on this Req. Please send results to: Bryan Barboza - [address] [facility] [address] - [phone] And if not done at a [facility], please send to: [facility] - [address], [address] - [facility] [place], [address] Patient Name: Sloane Ruelas 1950 Order Created by : Sherice Caruso Standing Status: Future Number of Occurrences: 1 Standing Expiration Date: 08/13/2024 Folate These orders are set for an approximate date - they can be drawn up to 3 months prior to the Expected Date on this Req. Please send results to: Bryan Barboza - [address] [facility] [address] - [phone] And if not done at a [facility], please send to: [place] [address] Patient Name: Sloane Ruelas 1950 Order Created by : Sherice Caruso Standing Status: Future Number of Occurrences: 1 Standing Expiration Date: 08/13/2024 Iron These orders are set for an approximate date - they can be drawn up to 3 months prior to the Expected Date on this Req. Please send results to: Bryan Barboza [place] [address] [facility] [address] - [phone] And if not done at a [facility], please send to: [address], [facility] Patient Name: Sloane Ruelas 1950 Order Created by : Sherice Caruso Standing Status: Future Number of Occurrences: 1 Standing Expiration Date: 08/13/2024 Ferritin These orders are set for an approximate date - they can be drawn up to 3 months prior to the Expected Date on this Req. Please send results to: Bryan Barboza - [address] [facility] [address] - [phone] And if not done at a [facility], please send to: [address], [address] Patient Name: Sloane Ruelas 1950 Order Created by : Sherice Caruso Standing Status: Future Number of Occurrences: 1 Standing Expiration Date: 08/13/2024 Magnesium These orders are set for an approximate date - they can be drawn up to 3 months prior to the Expected Date on this Req. Please send results to: Bryan Barboza [place] [address] [place] [address] - [phone] And if not done at a [facility], please send to: [address], [address] Patient Name: Sloane Rinaldi - 1950 Order Created by : Sherice Caruso Standing Status: Future Number of Occurrences: 1 Standing Expiration Date: 08/13/2024 Vitamin D Deficiency Screening (Vit D 25) These orders are set for an approximate date - they can be drawn up to 3 months prior to the Expected Date on this Req. Please send results to: Bryan Barboza [place] [address] [place] [address] - [phone] And if not done at a [facility], please send to: [address], [address] Patient Name: Sloane Ruelas 1950 Order Created by : Sherice Caruso Standing Status: Future Number of Occurrences: 1 Standing Expiration Date: 08/13/2024 Vitamin B12 These orders are set for an approximate date - they can be drawn up to 3 months prior to the Expected Date on this Req. Please send results to: Bryan Barboza [place] [address] [place] [address] - [phone] And if not done at a [facility], please send to: [address], [address] Patient Name: Sloane Ruelas 1950 Order Created by : Sherice Caruso Standing Status: Future Number of Occurrences: 1 Standing Expiration Date: 08/13/2024 Vitamin B1, whole blood These orders are set for an approximate date - they can be drawn up to 3 months prior to the Expected Date on this Req. Please send results to: Bryan Bernaberajiv - [address] [facility] [address] - [phone] And if not done at a [facility], please send to: [address], [address] Patient Name: Sloane Rinaldi - 1950 Order Created by : Sherice Caruso Standing Status: Future Number of Occurrences: 1 Standing Expiration Date: 08/13/2024 Lipid panel These orders are set for an approximate date - they can be drawn up to 3 months prior to the Expected Date on this Req. Please send results to: Bryan Barboza eJssenia [address] [facility] [address] - [phone] And if not done at a [facility], please send to: [address], [address] Patient Name: Sloane Rinaldi - 1950 Order Created by : Sherice Caruso Standing Status: Future Number of Occurrences: 1 Standing Expiration Date: 08/13/2024 Comprehensive metabolic panel These orders are set for an approximate date - they can be drawn up to 3 months prior to the Expected Date on this Req. Please send results to: Bryan Barboza [place] [address] [facility] [address] - [phone] And if not done at a [facility], please send to: [address], [address] Patient Name: Sloane Rinaldi - 1950 Order Created by : Sherice Caruso Standing Status: Future Number of Occurrences: 1 Standing Expiration Date: 08/13/2024 CBC These orders are set for an approximate date - they can be drawn up to 3 months prior to the Expected Date on this Req. Please send results to: Bryan Barboza - [address] [facility] [address] - [phone] And if not done at a [facility], please send to: [facility] - [address] [place] [address], [address] - [place], [id number] Patient Name: Sloane Rinaldi - 1950 Order Created by : Sherice Caruso Standing Status: Future Number of Occurrences: 1 Standing Expiration Date: 08/13/2024 Medications ordered during this encounter: Outpatient Encounter Medications as of 08/14/2023 Medication Sig Dispense Refill albuterol 108 (90 Base) MCG/ACT inhaler Daily as needed. BIOTIN 5000 PO Take by mouth. Calcium Carbonate Antacid (CALCIUM CARBONATE PO) Take 4,000 mg by mouth daily. Cyanocobalamin (B-12) [address] 1 tablet under the tongue daily. levothyroxine (Synthroid, Levoxyl) 100 MCG tablet Take 100 mcg by mouth daily. losartan-hydroCHLOROthiazide (Hyzaar) 50-12.5 MG tablet Take 1 tablet by mouth daily. omeprazole (PriLOSEC) [address] capsule Take 1 capsule (20 mg) by mouth daily. Do not crush or chew.(Patient taking differently: Take 20 mg by mouth daily. Do not crush or chew.) 90 capsule 1 PEDIATRIC MULTIVITAMINS-IRON PO Take 1 tablet by mouth daily. VITAMIN D PO Take 4,000 Int'l Units by mouth daily. [] ursodiol (Actigall) 300 MG capsule Take 1 capsule (300 mg) by mouth 2 times daily. 180 capsule 0 No facility-administered encounter medications on file as of 08/14/2023. Visit Diagnoses: 1. Arthralgia, unspecified joint 2. GERD without esophagitis 3. Hypothyroidism, unspecified type 4. Primary hypertension 5. Morbid obesity with BMI of 40.0-44.9, adult (HCC) 6. Deficiency of multiple nutrient elements Current Medications: Patient's Medications New Prescriptions No medications on file Previous Medications ALBUTEROL 108 (90 BASE) MCG/ACT INHALER Daily as needed. BIOTIN 5000 PO Take by mouth. CALCIUM CARBONATE ANTACID (CALCIUM CARBONATE PO) Take 4,000 mg by mouth daily. CYANOCOBALAMIN (B-12) [address] 1 tablet under the tongue daily. LEVOTHYROXINE (SYNTHROID, LEVOXYL) 100 MCG TABLET Take 100 mcg by mouth daily. LOSARTAN-HYDROCHLOROTHIAZIDE (HYZAAR) 50-12.5 MG TABLET Take 1 tablet by mouth daily. OMEPRAZOLE (PRILOSEC) [address] CAPSULE Take 1 capsule (20 mg) by mouth daily. Do not crush or chew. PEDIATRIC MULTIVITAMINS-IRON PO Take 1 tablet by mouth daily. VITAMIN D PO Take 4,000 Int'l Units by mouth daily. Modified Medications No medications on file Discontinued Medications No medications on file * Sherice Caruso - 08/14/2023 1:35 PM EDT [facility] PROGRESS NOTE POST WEIGHT LOSS SURGERY FOLLOW UP Patient: Sloane Rinaldi Service Date: 08/14/2023 Patient is 3 month(s) s/p Sleeve Gastrectomy Today's Metrics: Post-Surgical Weight Loss Date: 08/14/23 Height: 5' 1.5 (156.2 cm) Weight: 222 lb 12.8 oz (101 kg) BMI: 41.41 Weight Change: -13.2 lbs Total Weight Change: -40.8 lbs % EBWL: 26% Comments: 3M Pre-op Weight Metrics: Post-op Weight Metrics: %EBWL: % EBWL: 26% Weight Change Since Last Visit: Weight Change: -13.2 lbs Weight Change from Highest Pre-op Weight: Total Weight Change: -40.8 lbs Patient has the following questions: None Reported Pain: Patient rates pain on scale 0-10 as: 0 Exercise Compliance: Exercising: yes If yes: Type: walking Times per week: 5-6 Min per session: 10-15 Falls Risk Assessment Patient does take medications which affect BP or mental status Patient does not have newly prescribed or changed dosage of medications within past 30 days which affect BP or mental status Patient has not fallen in the past 2 months Patient does not demonstrate unsteady gait Patient uses the following ambulatory assistive devices: none Patient states the presence of the following traits which increases risk of fall: none Patient is not on home O2 Labs Completed: yes - If NO, patient instructed to get labs drawn today or LYSSA If YES: Labs completed at [facility]? yes If yes see Labs Tab Labs completed at Non-[facility] facility? no If yes see Encounters Tab - Orders only - Historical Provider - Date: Completed by: Sherice Caruso * Ana Valentin RD - 08/14/2023 1:35 PM EDT [facility] 3 MONTH POST-OPERATIVE DIETITIAN VISIT Date: 08/14/23 Patient's weight decreased by: 40.8 lbs Patient does consume 5-6 small meals daily Patient s portions are adequate for current diet: -1 cup Protein requirements discussed- currently consuming at least 65 grams of protein daily. Current protein sources: eggs, peñaloza, sausage, tuna, cheese, chicken, nuts, protein shake Recommendations:none Fluid requirements discussed. Current Fluid Intake: 58-65 oz/day Patient does drink sugar-free, caffeine-free and carbonation-free fluids only. Patient does waiting 30 minutes before and after meals to drink Exercise activities discussed. Patient does currently exercising. She was reminded that regular exercise is critical part of a successful outcome following weight loss surgery. (Walking 15 min once per day) Behavioral/Emotional changes reviewed. Patient does feel comfortable with changes in eating behaviors and associated emotional changes. She was reminded that psychological counseling is available through the [facility] post-operatively. Patient told she may switch to non-chewable vitamins and calcium citrate. Recent Nutrient Concerns and Vitamin Supplementation Changes: Pt compliant with vitamin/mineral protocol. Labs WNL. Notes/Comments: Pt doing well. Pt encouraged to call/Mychart with questions. Visit completed by: Ana Valentin RD documented in this [facility]05-09-2024 Miscellaneous Notes* Addendum Note - Naheed Caballero - 08/14/2023 1:35 PM EDTAddended by: NAHEED CABALLERO on: 10/24/2023 09:11 AM Modules accepted: Orders documented in this [facility]05-09-2024 Note* Addendum Note - Naheed Maty - 08/14/2023 1:35 PM EDTAddended by: NAHEED CABALLERO on: 10/24/2023 09:11 AM Modules accepted: [id number] History of Present illness Narrative* Josef Elder MD - 06/17/2023 7:50 AM EDT HPI, PHYSICAL EXAMINATION & PLAN POST-OP HPI: Patient here today for 1 month post-weight loss surgery follow up, LSG The patient is feeling well. Denies nausea, vomiting, dysphagia, or any GERD Sx. Currently is on a PPI. Patient states diet and exercise is going fairly well. Currently is eating 65-75 gm/day protein, and is compliant with prescribed multivitamins and supplements. Drinking 55 oz daily. Eating 5-6x daily. Review of Systems Constitutional: Negative for fatigue and fever. HENT: Negative for congestion, rhinorrhea and trouble swallowing. Respiratory: Negative for cough, chest tightness and shortness of breath. Cardiovascular: Negative for chest pain, palpitations and leg swelling. Gastrointestinal: Negative for abdominal distention, abdominal pain, blood in stool, constipation, diarrhea and nausea. Genitourinary: Negative for dysuria, flank pain, frequency and urgency. Musculoskeletal: Negative for arthralgias, back pain and myalgias. Skin: Negative for color change and rash. Neurological: Negative for light-headedness and headaches. Psychiatric/Behavioral: Negative for dysphoric mood. The patient is not nervous/anxious. Vital signs are stable. Labs were Completed All labs were: within an acceptable range Physical Examination: BP 132/78 Pulse (!) 111 Temp 36.2 C (97.1 F) Resp 18 Ht 5' 1.5 (1.562 m) Wt 236 lb (107 kg) BMI 43.87 kg/m General: This patient is awake, alert, and oriented, and is in no apparent distress. Respiratory: Non-labored breathing Abdomen: Obese, soft, non-tender, non-distended without masses/ No evidence of abdominal hernia / Incisions consistent with previous surgeries. Extremities: No cyanosis, clubbing or edema/ No calf tenderness/No restrictions of movement, is ambulatory without assistance. Neurological: Intact x 4 extremities, no focal deficits notes. Skin: No rashes or lesions noted. Rectal: Deferred Surgical site: is:clean, dry, intact, and nontender Drainage from surgical site: none Patient does not have a superficial incisional SSI Current Medications: Patient's Medications New Prescriptions No medications on file Previous Medications ALBUTEROL 108 (90 BASE) MCG/ACT INHALER Daily as needed. CALCIUM CARBONATE ANTACID (CALCIUM CARBONATE PO) Take 4,000 mg by mouth in the morning and 4,000 mgin the evening. CYANOCOBALAMIN (B-12) [address] 1 tablet under the tongue daily. LEVOTHYROXINE (SYNTHROID, LEVOXYL) 100 MCG TABLET Take 100 mcg by mouth daily. LOSARTAN-HYDROCHLOROTHIAZIDE (HYZAAR) 50-12.5 MG TABLET Take 1 tablet by mouth daily. OMEPRAZOLE (PRILOSEC) [address] CAPSULE Take 1 capsule (20 mg) by mouth daily. Do not crush or chew. PEDIATRIC MULTIVITAMINS-IRON PO Take 1 tablet by mouth daily. URSODIOL (ACTIGALL) 300 MG CAPSULE Take 1 capsule (300 mg) by mouth 2 times daily. VITAMIN D PO Take 4,000 Int'l Units by mouth daily. Modified Medications No medications on file Discontinued Medications CALCIUM CARBONATE (TUMS) 500 MG CHEWABLE TABLET Chew 500 mg 3 times daily. Medications ordered during this encounter: Outpatient Encounter Medications as of 06/17/2023 Medication Sig Dispense Refill albuterol 108 (90 Base) MCG/ACT inhaler Daily as needed. Calcium Carbonate Antacid (CALCIUM CARBONATE PO) Take 4,000 mg by mouth in the morning and 4,000 mgin the evening. Cyanocobalamin (B-12) [address] 1 tablet under the tongue daily. levothyroxine (Synthroid, Levoxyl) 100 MCG tablet Take 100 mcg by mouth daily. losartan-hydroCHLOROthiazide (Hyzaar) 50-12.5 MG tablet Take 1 tablet by mouth daily. omeprazole (PriLOSEC) [address] capsule Take 1 capsule (20 mg) by mouth daily. Do not crush or chew.(Patient taking differently: Take 20 mg by mouth daily. Do not crush or chew.) 90 capsule 1 PEDIATRIC MULTIVITAMINS-IRON PO Take 1 tablet by mouth daily. ursodiol (Actigall) 300 MG capsule Take 1 capsule (300 mg) by mouth 2 times daily. 180 capsule 0 VITAMIN D PO Take 4,000 Int'l Units by mouth daily. [DISCONTINUED] calcium carbonate (Tums) 500 MG chewable tablet Chew 500 mg 3 times daily. No facility-administered encounter medications on file as of 06/17/2023. Orders Placed This Encounter Procedures Zinc Folate Iron Ferritin Magnesium Vitamin B12 Comprehensive metabolic panel CBC Visit Diagnoses: 1. Primary hypertension 2. Deficiency of multiple nutrient elements 3. Hypercholesterolemia 4. Morbid obesity with BMI of 40.0-44.9, adult (HCC) Plan: 1). Cleared for all activity, no weight restrictions. All incisions healed. 2). Continue PPI until 6 month office visit 3). Labs: unremarkable 4). F/u at 3 month office visit with standard labs 5). Progressing diet as tolerated per RD 6). Psych concerns: No 7). Dysphagia: No 8). If patient is a woman of childrearing age- 18-50. We discussed the importance of contraception during the first 12-18 months post op, and we discussed that fertility will increase following the procedure. Advised patient to discuss with her OBGYN regarding contraception. Patient counseled with good understanding verbalized. 9). Weight loss: Post-op Weight Metrics: %EBWL: % EBWL: 18% Weight Change Since Last Visit: Weight Change: -9 lbs Weight Change from Highest Pre-op Weight: Total Weight Change: -27.6 lbs 10). Essential Hypertension- Remains on Hyzaar. BP well controlled. PCP managing. Patient met with the dietitian today to review are vitamin and protein recommendations. Increase activity as recommended, the wounds are healed, no evidence of abdominal wall hernias. No nausea vomiting or dysphagia noted. Appropriate bowel function, discussed with her regarding contacting us for any questions or concerns. The lab slip was signed for the next visit, labs from 06/11/23 were reviewed and are within normal limits. Follow-up 3 months postop. I personally performed the evaluation and management of Sloane Eliud in the development of a treatment plan for this patient. I personally interviewed the patient and performed an individual physical examination. In addition, I discussed the patient's condition and treatment options with them. I have also reviewed and agree with the past medical, family and social history unless otherwise noted.All of the patient's questions were answered. Patient Care Team: Bryan Barboza as PCP - General (Family Medicine) Josef Elder MD as Surgeon (General Surgery) Pretty Rosa RN as Registered Nurse (Bariatrics) * Daisy Lindo MA - 06/17/2023 7:50 AM EDT [facility] PROGR[facility] POST WEIGHT LOSS SURGERY FOLLOW UP Patient: Sloane Rinaldi Service Date: 06/17/2023 Patient is 1 month(s) s/p Sleeve Gastrectomy Today's Metrics: Post-Surgical Weight Loss Date: 06/17/23 Height: 5' 1.5 (156.2 cm) (the medical center) Weight: 236 lb (107 kg) (the medical center) BMI: 43.86 Weight Change: -9 lbs Total Weight Change: -27.6 lbs % EBWL: 18% Comments: 1M Pre-op Weight Metrics: Post-op Weight Metrics: %EBWL: % EBWL: 18% Weight Change Since Last Visit: Weight Change: -9 lbs Weight Change from Highest Pre-op Weight: Total Weight Change: -27.6 lbs Patient has the following questions: None Reported Pain: Patient rates pain on scale 0-10 as: 0 Exercise Compliance: Exercising: yes If yes: Type: walking Times per week: 5 Min per session: 15 Falls Risk Assessment Patient does take medications which affect BP or mental status Patient does not have newly prescribed or changed dosage of medications within past 30 days which affect BP or mental status Patient has not fallen in the past 2 months Patient does not demonstrate unsteady gait Patient uses the following ambulatory assistive devices: none Patient states the presence of the following traits which increases risk of fall: none Patient is not on home O2 Labs Completed: yes - If NO, patient instructed to get labs drawn today or LYSSA If YES: Labs completed at [place]? yes If yes see Labs Tab Labs completed at Non-[place] facility? N/A If yes see Encounters Tab - Orders only - Historical Provider - Date: 06/11/2023 Completed by: Daisy Lindo MA * Ana Valentin RD - 06/17/2023 7:50 AM EDT [facility] 1 MONTH POST-OPERATIVE DIETITIAN VISIT Date: 06/17/23 Current diet reviewed with patient. Soft and maintenance diets discussed and. handouts provided. Patient's weight decreased by: 27.6 lbs Patient does consume 5-6 small meals daily: Patient s portions are adequate for current diet: -1 cup Protein requirements discussed- currently consuming 65 grams of protein daily. Current protein sources: egg, sausage, cheese, chicken salad, chicken, fish, cottage cheese, yogurt, protein shake Recommendations:none Fluid requirements discussed. Current Fluid Intake: 50 oz/day Patient does drink sugar-free, caffeine-free and carbonation-free fluids only. Patient does wait 30 minutes before and after meals to drink Exercise activities discussed. Patient does currently exercising. She was reminded that regular exercise is critical part of a successful outcome following weight loss surgery. (Walking) Behavioral/Emotional changes reviewed. Patient does feel comfortable with changes in eating behaviors and associated emotional changes. She was reminded that psychological counseling is available through the [facility] post-operatively. The importance of vitamin supplements has been reviewed and the patient is taking the following: -Multivitamin with minerals and iron -Calcium -Vitamin B12 -Vitamin D3 -Other: Recent Nutrient Concerns and Vitamin Supplementation Changes: Pt compliant with vitamin/mineral protocol. Labs WNL. Notes/Comments: Pt doing well. Increase water to 64 oz/day. Pt to advance to maintenance diet. Pt encouraged to call/MyChart with questions. Visit completed by: Ana Valentin RD documented in this [facility] [place]03-12-2024 History of Present illness Narrative* Josef Elder MD - 06/17/2023 7:50 AM EDT HPI, PHYSICAL EXAMINATION & PLAN POST-OP HPI: Patient here today for 1 month post-weight loss surgery follow up, LSG The patient is feeling well. Denies nausea, vomiting, dysphagia, or any GERD Sx. Currently is on a PPI. Patient states diet and exercise is going fairly well. Currently is eating 65-75 gm/day protein, and is compliant with prescribed multivitamins and supplements. Drinking 55 oz daily. Eating 5-6x daily. Review of Systems Constitutional: Negative for fatigue and fever. HENT: Negative for congestion, rhinorrhea and trouble swallowing. Respiratory: Negative for cough, chest tightness and shortness of breath. Cardiovascular: Negative for chest pain, palpitations and leg swelling. Gastrointestinal: Negative for abdominal distention, abdominal pain, blood in stool, constipation, diarrhea and nausea. Genitourinary: Negative for dysuria, flank pain, frequency and urgency. Musculoskeletal: Negative for arthralgias, back pain and myalgias. Skin: Negative for color change and rash. Neurological: Negative for light-headedness and headaches. Psychiatric/Behavioral: Negative for dysphoric mood. The patient is not nervous/anxious. Vital signs are stable. Labs were Completed All labs were: within an acceptable range Physical Examination: BP 132/78 Pulse (!) 111 Temp 36.2 C (97.1 F) Resp 18 Ht 5' 1.5 (1.562 m) Wt 236 lb (107 kg) BMI 43.87 kg/m General: This patient is awake, alert, and oriented, and is in no apparent distress. Respiratory: Non-labored breathing Abdomen: Obese, soft, non-tender, non-distended without masses/ No evidence of abdominal hernia / Incisions consistent with previous surgeries. Extremities: No cyanosis, clubbing or edema/ No calf tenderness/No restrictions of movement, is ambulatory without assistance. Neurological: Intact x 4 extremities, no focal deficits notes. Skin: No rashes or lesions noted. Rectal: Deferred Surgical site: is:clean, dry, intact, and nontender Drainage from surgical site: none Patient does not have a superficial incisional SSI Current Medications: Patient's Medications New Prescriptions No medications on file Previous Medications ALBUTEROL 108 (90 BASE) MCG/ACT INHALER Daily as needed. CALCIUM CARBONATE ANTACID (CALCIUM CARBONATE PO) Take 4,000 mg by mouth in the morning and 4,000 mgin the evening. CYANOCOBALAMIN (B-12) [address] 1 tablet under the tongue daily. LEVOTHYROXINE (SYNTHROID, LEVOXYL) 100 MCG TABLET Take 100 mcg by mouth daily. LOSARTAN-HYDROCHLOROTHIAZIDE (HYZAAR) 50-12.5 MG TABLET Take 1 tablet by mouth daily. OMEPRAZOLE (PRILOSEC) [address] CAPSULE Take 1 capsule (20 mg) by mouth daily. Do not crush or chew. PEDIATRIC MULTIVITAMINS-IRON PO Take 1 tablet by mouth daily. URSODIOL (ACTIGALL) 300 MG CAPSULE Take 1 capsule (300 mg) by mouth 2 times daily. VITAMIN D PO Take 4,000 Int'l Units by mouth daily. Modified Medications No medications on file Discontinued Medications CALCIUM CARBONATE (TUMS) 500 MG CHEWABLE TABLET Chew 500 mg 3 times daily. Medications ordered during this encounter: Outpatient Encounter Medications as of 06/17/2023 Medication Sig Dispense Refill albuterol 108 (90 Base) MCG/ACT inhaler Daily as needed. Calcium Carbonate Antacid (CALCIUM CARBONATE PO) Take 4,000 mg by mouth in the morning and 4,000 mgin the evening. Cyanocobalamin (B-12) [address] 1 tablet under the tongue daily. levothyroxine (Synthroid, Levoxyl) 100 MCG tablet Take 100 mcg by mouth daily. losartan-hydroCHLOROthiazide (Hyzaar) 50-12.5 MG tablet Take 1 tablet by mouth daily. omeprazole (PriLOSEC) [address] capsule Take 1 capsule (20 mg) by mouth daily. Do not crush or chew.(Patient taking differently: Take 20 mg by mouth daily. Do not crush or chew.) 90 capsule 1 PEDIATRIC MULTIVITAMINS-IRON PO Take 1 tablet by mouth daily. ursodiol (Actigall) 300 MG capsule Take 1 capsule (300 mg) by mouth 2 times daily. 180 capsule 0 VITAMIN D PO Take 4,000 Int'l Units by mouth daily. [DISCONTINUED] calcium carbonate (Tums) 500 MG chewable tablet Chew 500 mg 3 times daily. No facility-administered encounter medications on file as of 06/17/2023. Orders Placed This Encounter Procedures Zinc Folate Iron Ferritin Magnesium Vitamin B12 Comprehensive metabolic panel CBC Visit Diagnoses: 1. Primary hypertension 2. Deficiency of multiple nutrient elements 3. Hypercholesterolemia 4. Morbid obesity with BMI of 40.0-44.9, adult (HCC) Plan: 1). Cleared for all activity, no weight restrictions. All incisions healed. 2). Continue PPI until 6 month office visit 3). Labs: unremarkable 4). F/u at 3 month office visit with standard labs 5). Progressing diet as tolerated per RD 6). Psych concerns: No 7). Dysphagia: No 8). If patient is a woman of childrearing age- 18-50. We discussed the importance of contraception during the first 12-18 months post op, and we discussed that fertility will increase following the procedure. Advised patient to discuss with her OBGYN regarding contraception. Patient counseled with good understanding verbalized. 9). Weight loss: Post-op Weight Metrics: %EBWL: % EBWL: 18% Weight Change Since Last Visit: Weight Change: -9 lbs Weight Change from Highest Pre-op Weight: Total Weight Change: -27.6 lbs 10). Essential Hypertension- Remains on Hyzaar. BP well controlled. PCP managing. Patient met with the dietitian today to review are vitamin and protein recommendations. Increase activity as recommended, the wounds are healed, no evidence of abdominal wall hernias. No nausea vomiting or dysphagia noted. Appropriate bowel function, discussed with her regarding contacting us for any questions or concerns. The lab slip was signed for the next visit, labs from 06/11/23 were reviewed and are within normal limits. Follow-up 3 months postop. I personally performed the evaluation and management of Sloane Rinaldi in the development of a treatment plan for this patient. I personally interviewed the patient and performed an individual physical examination. In addition, I discussed the patient's condition and treatment options with them. I have also reviewed and agree with the past medical, family and social history unless otherwise noted.All of the patient's questions were answered. Patient Care Team: Bryan Barboza as PCP - General (Family Medicine) Josef Elder MD as Surgeon (General Surgery) Pretty Rosa RN as Registered Nurse (Bariatrics) * Daisy Lindo MA - 06/17/2023 7:50 AM EDT [facility] PROGRESS NOTE POST WEIGHT LOSS SURGERY FOLLOW UP Patient: Sloane Rinaldi Service Date: 06/17/2023 Patient is 1 month(s) s/p Sleeve Gastrectomy Today's Metrics: Post-Surgical Weight Loss Date: 06/17/23 Height: 5' 1.5 (156.2 cm) (the medical center) Weight: 236 lb (107 kg) (the medical center) BMI: 43.86 Weight Change: -9 lbs Total Weight Change: -27.6 lbs % EBWL: 18% Comments: 1M Pre-op Weight Metrics: Post-op Weight Metrics: %EBWL: % EBWL: 18% Weight Change Since Last Visit: Weight Change: -9 lbs Weight Change from Highest Pre-op Weight: Total Weight Change: -27.6 lbs Patient has the following questions: None Reported Pain: Patient rates pain on scale 0-10 as: 0 Exercise Compliance: Exercising: yes If yes: Type: walking Times per week: 5 Min per session: 15 Falls Risk Assessment Patient does take medications which affect BP or mental status Patient does not have newly prescribed or changed dosage of medications within past 30 days which affect BP or mental status Patient has not fallen in the past 2 months Patient does not demonstrate unsteady gait Patient uses the following ambulatory assistive devices: none Patient states the presence of the following traits which increases risk of fall: none Patient is not on home O2 Labs Completed: yes - If NO, patient instructed to get labs drawn today or LYSSA If YES: Labs completed at [place]? yes If yes see Labs Tab Labs completed at Non-[place] facility? N/A If yes see Encounters Tab - Orders only - Historical Provider - Date: 06/11/2023 Completed by: Daisy Lindo MA * Ana Valentin RD - 06/17/2023 7:50 AM EDT [facility] [place] 1 MONTH POST-OPERATIVE DIETITIAN VISIT Date: 06/17/23 Current diet reviewed with patient. Soft and maintenance diets discussed and. handouts provided. Patient's weight decreased by: 27.6 lbs Patient does consume 5-6 small meals daily: Patient s portions are adequate for current diet: -1 cup Protein requirements discussed- currently consuming 65 grams of protein daily. Current protein sources: egg, sausage, cheese, chicken salad, chicken, fish, cottage cheese, yogurt, protein shake Recommendations:none Fluid requirements discussed. Current Fluid Intake: 50 oz/day Patient does drink sugar-free, caffeine-free and carbonation-free fluids only. Patient does wait 30 minutes before and after meals to drink Exercise activities discussed. Patient does currently exercising. She was reminded that regular exercise is critical part of a successful outcome following weight loss surgery. (Walking) Behavioral/Emotional changes reviewed. Patient does feel comfortable with changes in eating behaviors and associated emotional changes. She was reminded that psychological counseling is available through the [facility] post-operatively. The importance of vitamin supplements has been reviewed and the patient is taking the following: -Multivitamin with minerals and iron -Calcium -Vitamin B12 -Vitamin D3 -Other: Recent Nutrient Concerns and Vitamin Supplementation Changes: Pt compliant with vitamin/mineral protocol. Labs WNL. Notes/Comments: Pt doing well. Increase water to 64 oz/day. Pt to advance to maintenance diet. Pt encouraged to call/MyChart with questions. Visit completed by: Ana Valentin RD documented in this [facility] [place]03-12-2024 Miscellaneous Notes* Addendum Note - Kole Asher - 06/17/2023 7:50 AM EDTAddended by: KOLE ASHER on: 08/09/2023 11:07 AM Modules accepted: Orders documented in this [facility] [place]03-12-2024 Note* Addendum Note - Kole Asher - 06/17/2023 7:50 AM EDTAddended by: KOLE ASHER on: 08/09/2023 11:07 AM Modules accepted: [id number] History of Present illness Narrative* Josef Elder MD - 05/20/2023 9:10 AM EST Images from the original note were not included. HPI, PHYSICAL EXAMINATION & PLAN POST-OP HPI: Patient here today for 1 week post-weight loss surgery follow up, LSG Visit Diagnoses: 1. Primary hypertension 2. Deficiency of multiple nutrient elements 3. S/P gastric sleeve procedure 4. Morbid obesity with BMI of 45.0-49.9, adult (HCC) 5. Hypothyroidism, unspecified type HPI: The patient is feeling good. Denies nausea, vomiting, dysphagia, or any GERD Sx. Currently Taking is taking a PPI. Patient currently walking. Instructed no lifting heavier than 15lbs until [address] to start supplements. Drinking 40 oz of fluids. Denies pain. Review of Systems Constitutional: Negative for fatigue and fever. HENT: Negative for congestion, rhinorrhea and trouble swallowing. Respiratory: Negative for cough, chest tightness and shortness of breath. Cardiovascular: Negative for chest pain, palpitations and leg swelling. Gastrointestinal: Negative for abdominal distention, abdominal pain, blood in stool, constipation, diarrhea and nausea. Genitourinary: Negative for dysuria, flank pain, frequency and urgency. Musculoskeletal: Negative for arthralgias, back pain and myalgias. Skin: Negative for color change and rash. Neurological: Negative for light-headedness and headaches. Psychiatric/Behavioral: Negative for dysphoric mood. The patient is not nervous/anxious. Vital signs are stable. Labs were not drawn. Physical Examination: BP (!) 146/86 Pulse (!) 112 Temp 36.2 C (97.2 F) Resp 16 Ht 5' 1.5 (1.562 m) Comment: BCC Wt 245 lb (111 kg) SpO2 96% BMI 45.54 kg/m General: This patient is awake, alert, and oriented, and is in no apparent distress. Respiratory: Non-labored breathing Abdomen: Obese, soft, non-tender, non-distended without masses/ No evidence of abdominal hernia / Incisions consistent with previous surgeries. Head and Neck: Obese, normocephalic and atraumatic/soft and supple Extremities: No cyanosis, clubbing or edema/ No calf tenderness/No restrictions of movement, is ambulatory without assistance. Neurological: Intact x 4 extremities, no focal deficits notes. Skin: No rashes or lesions noted. Rectal: Deferred Surgical site: is:clean, dry, intact, and nontender Drainage from surgical site: none Patient does not have a superficial incisional SSI Plan: Orders Placed This Encounter Procedures Zinc These orders are set for an approximate date - they can be drawn up to 3 months prior to the Expected Date on this Req. Please send results to: Bryan Ruelas [address] [facility] [address] - [phone] And if not done at a [place] Facility, please send to: [address], [facility] Patient Name: Sloane Rinaldi - 1950 Order Created by : Heidy Graves LPN Standing Status: Future Number of Occurrences: 1 Standing Expiration Date: 05/20/2024 Folate These orders are set for an approximate date - they can be drawn up to 3 months prior to the Expected Date on this Req. Please send results to: Bryan Ruelas [address] [facility] [address] - [phone] And if not done at a [place] Facility, please send to: [address], [facility] Patient Name: Sloane Rinaldi - 1950 Order Created by : Heidy Graves LPN Standing Status: Future Number of Occurrences: 1 Standing Expiration Date: 05/20/2024 Iron These orders are set for an approximate date - they can be drawn up to 3 months prior to the Expected Date on this Req. Please send results to: Bryan Ruelas [address] [facility] [address] - [phone] And if not done at a [place] Facility, please send to: [address], [address] Patient Name: Solane Ruelas 1950 Order Created by : Heidy Graves LPN Standing Status: Future Number of Occurrences: 1 Standing Expiration Date: 05/20/2024 Ferritin These orders are set for an approximate date - they can be drawn up to 3 months prior to the Expected Date on this Req. Please send results to: Bryan Barboza - [address] [place] [address] [facility] [address] - [phone] And if not done at a [place] [facility], please send to: [place] [address] Patient Name: Sloane Ruelas 1950 Order Created by : Heidy Graves LPN Standing Status: Future Number of Occurrences: 1 Standing Expiration Date: 05/20/2024 Magnesium These orders are set for an approximate date - they can be drawn up to 3 months prior to the Expected Date on this Req. Please send results to: Bryan Barboza [place] [address] [place] [address] [facility] [address] - [phone] And if not done at a [facility] [facility], please send to: [address], [facility] Patient Name: Sloane Ruelas 1950 Order Created by : Heidy Graves LPN Standing Status: Future Number of Occurrences: 1 Standing Expiration Date: 05/20/2024 Vitamin B12 These orders are set for an approximate date - they can be drawn up to 3 months prior to the Expected Date on this Req. Please send results to: Bryan Barboza - [address] [place] [address] [facility] [address] - [phone] And if not done at a [facility] [facility], please send to: [address], [facility] Patient Name: Sloane Ruelas 1950 Order Created by : Heidy Graves LPN Standing Status: Future Number of Occurrences: 1 Standing Expiration Date: 05/20/2024 Comprehensive metabolic panel These orders are set for an approximate date - they can be drawn up to 3 months prior to the Expected Date on this Req. Please send results to: Bryan Barboza - [address] [facility] [address] [facility] [id number] - [phone] And if not done at a [facility] [facility], please send to: [facility] - [address] [place] [address] Patient Name: Sloane Rinaldi - 1950 Order Created by : Heidy Graves LPN Standing Status: Future Number of Occurrences: 1 Standing Expiration Date: 05/20/2024 CBC These orders are set for an approximate date - they can be drawn up to 3 months prior to the Expected Date on this Req. Please send results to: Bryan [facility] [address] [facility] [id number] - [phone] And if not done at a [facility] [facility], please send to: [place] [address] Patient Name: Sloane Rinaldi - 1950 Order Created by : Heidy Graves LPN Standing Status: Future Number of Occurrences: 1 Standing Expiration Date: 05/20/2024 Vitamin B1, whole blood Standing Status: Future Number of Occurrences: 1 Standing Expiration Date: 05/20/2024 Medications ordered during this encounter: Outpatient Encounter Medications as of 05/20/2023 Medication Sig Dispense Refill albuterol 108 (90 Base) MCG/ACT inhaler Daily as needed. levothyroxine (Synthroid, Levoxyl) 100 MCG tablet Take 100 mcg by mouth daily. omeprazole (PriLOSEC) [address] capsule Take 1 capsule (20 mg) by mouth daily. Do not crush or chew.(Patient taking differently: Take 20 mg by mouth daily. Do not crush or chew.) 90 capsule 1 losartan-hydroCHLOROthiazide (Hyzaar) 50-12.5 MG tablet Take 1 tablet by mouth daily. Multiple Vitamins-Iron (MULTIPLE VITAMIN/IRON PO) Take by mouth daily. ondansetron (Zofran) 4 MG tablet Take 1 tablet (4 mg) by mouth every 8 hours as needed for nausea or vomiting for up to 7 days. (Patient not taking: Reported on 05/20/2023) 21 tablet 0 oxyCODONE (Roxicodone) 5 MG immediate release tablet Take 1 tablet (5 mg) by mouth every 6 hours asneeded for severe pain (7-10) for up to 7 days. (Patient not taking: Reported on 05/20/2023) 28 tablet 0 ursodiol (Actigall) 300 MG capsule Take 1 capsule (300 mg) by mouth 2 times daily. (Patient not taking: Reported on 05/20/2023) 180 capsule 0 VITAMIN D, CHOLECALCIFEROL, PO Take 1,000 Int'l Units by mouth daily. Last dose 05/01/23 No facility-administered encounter medications on file as of 05/20/2023. 1). Oral Thrush: negative, Rx: 5ml Nystatin swish and spit every 8 hours x 10days 2). Liver Bx: Final Diagnosis A. LIVER, WEDGE BIOPSY: - MILD STEATOSIS (GRADE 1) Comment: Sections demonstrate an intact liver architecture with mild macrovesicular steatosis occupying approximately 20-30% of the liver volume. There is no evidence of ballooning degeneration, lobular activity, or Milagro's hyaline. The portal tracts contain all normal structures without any significant inflammatory infiltrate. Special stains (iron and trichome) are negative for increased iron storage and fibrosis, respectively. B. STOMACH, PARTIAL GASTRECTOMY: - MILD CHRONIC INACTIVE GASTRITIS Comment: There is no evidence of intestinal metaplasia, dysplasia, or malignancy. The H&E stainshows no evidence of Helicobacter pylori. at 1052 Refer to GI : No 3). Follow up at 1 month office visit with standard labs 4). Patient to see PCP for follow up regarding further management of DM and HTN medications. 5). Continue PPI until 6 month office visit 6). Advance to Pureed diet, RD discussed at office visit 7). Psych concerns: No 8). No lifting >15lbs until 1 month office visit. 9). If patient is a woman of childrearing age- 18-50. We discussed the importance of contraception during the first 12-18 months post op, and we discussed that fertility will increase following the procedure. Advised patient to discuss with her OBGYN regarding contraception. Patient counseled with good understanding verbalized. 10). Weight loss: Post-op Weight Metrics: %EBWL: % EBWL: 12% Weight Change Since Last Visit: Weight Change: -18.6 lbs Weight Change from Highest Pre-op Weight: Total Weight Change: -18.6 lbs 11). Essential Hypertension- Hyzaar on hold. BP controlled. Continued follow up with PCP for management. Current Medications: Patient's Medications New Prescriptions No medications on file Previous Medications ALBUTEROL 108 (90 BASE) MCG/ACT INHALER Daily as needed. LEVOTHYROXINE (SYNTHROID, LEVOXYL) 100 MCG TABLET Take 100 mcg by mouth daily. LOSARTAN-HYDROCHLOROTHIAZIDE (HYZAAR) 50-12.5 MG TABLET Take 1 tablet by mouth daily. MULTIPLE VITAMINS-IRON (MULTIPLE VITAMIN/IRON PO) Take by mouth daily. OMEPRAZOLE (PRILOSEC) [address] CAPSULE Take 1 capsule (20 mg) by mouth daily. Do not crush or chew. ONDANSETRON (ZOFRAN) 4 MG TABLET Take 1 tablet (4 mg) by mouth every 8 hours as needed for nausea or vomiting for up to 7 days. OXYCODONE (ROXICODONE) 5 MG IMMEDIATE RELEASE TABLET Take 1 tablet (5 mg) by mouth every 6 hours asneeded for severe pain (7-10) for up to 7 days. URSODIOL (ACTIGALL) 300 MG CAPSULE Take 1 capsule (300 mg) by mouth 2 times daily. VITAMIN D, CHOLECALCIFEROL, PO Take 1,000 Int'l Units by mouth daily. Last dose 05/01/23 Modified Medications No medications on file Discontinued Medications No medications on file She met with the dietitian today to review are vitamin and protein recommendations. Increase activity as recommended, the wounds are healed, no evidence of abdominal wall hernias. No nausea vomiting or dysphagia noted. Appropriate bowel function, discussed with her regarding contacting us for any questions or concerns. The lab slip was signed for the next visit. Follow up 1 month postop. I personally performed the evaluation and management of Sloane Curren in the development of a treatment plan for this patient. I personally interviewed the patient and performed an individual physical examination. In addition, I discussed the patient's condition and treatment options with them. I have also reviewed and agree with the past medical, family and social history unless otherwise noted.All of the patient's questions were answered. Patient Care Team: Bryan Barboza as PCP - General (Family Medicine) Josef Elder MD as Surgeon (General Surgery) Pretty Rosa RN as Registered Nurse (Bariatrics) * Heidy Graves LPN - 05/20/2023 9:10 AM EST [facility] POST WEIGHT LOSS SURGERY FOLLOW UP - 1 WEEK Rooming Note Patient: Sloane Rinaldi Service Date: 05/20/2023 Patient is 1 week s/p Lap Sleeve Gastrectomy Post-Surgical Weight Loss Date: 05/20/23 Height: 5' 1.5 (156.2 cm) Weight: 245 lb (111 kg) BMI: 45.54 Weight Change: -18.6 lbs Total Weight Change: -18.6 lbs % EBWL: 12% Comments: 1W Pain: Patient rates pain on scale 0-10 as: 0 Patient has the following questions: none Patient is not diabetic If patient IS Diabetic: Patient spoken with the physician who prescribes their diabetic medications Patient resumed their diabetic medications as directed by their physician Patient advised as follows by physician prescribing diabetic medications: Exercise Compliance: Compliance with recommended current exercise plan of walking/frequent ambulation: yes Falls Risk Assessment Patient does take medications which affect BP or mental status currently on hold Patient does not have newly prescribed or changed dosage of medications within past 30 days which affect BP or mental status Patient has not fallen in the past 2 months Patient does not demonstrate unsteady gait Patient uses the following ambulatory assistive devices: none Patient states the presence of the following traits which increases risk of fall: none Patient is low risk for falls. If high or moderate risk, patient instructed not to ambulate independently in the Center, and cord for call light placed within reach of patient. Post-op Weight Metrics: %EBWL: % EBWL: 12% Weight Change Since Last Visit: Weight Change: -18.6 lbs Weight Change from Highest Pre-op Weight: Total Weight Change: -18.6 lbs Completed by: Heidy Graves LPN * yMnor Ruiz RD - 05/20/2023 9:10 AM EST [facility] 1 WEEK VISIT POST-OPERATIVE DIETITIAN Pt is here for 1 week office visit. Pt is currently on a full liquid diet. Pt will advance to a pureed diet today and follow a pureed diet for 10 days. Then, the pt will advance to a soft diet until their 1 month post op office visit. Both of these diets have been reviewed with the pt today. Protein requirements discussed. Patient to consume 65-75 grams daily. Fluid requirements discussed. Patient to consume 64 oz+ daily. Patient is aware that she must consume fluids 30 mintues before and after meals. Exercise activities discussed with the patient. She doeshave a plan for exercise when cleared. Patient advised that regular exercise is vital to a successful outcome following weight loss surgery. Behavioral/Emotional changes reviewed Patient does feel comfortable with changes in eating behaviors and associated emotional changes. She was reminded that psychological counseling is available through the [facility] post-operatively. The importance of vitamin supplementation has been discussed with patient. She will start the following vitamin supplements today: -Multivitamin with minerals and iron -Calcium -Vitamin B12 -Vitamin D3 -Other: Notes/Comments: Patient to advance to pureed diet for 10 days, followed by soft diet. Patient to follow a soft diet until 1 month appointment. Visit completed by: Mynor Ruiz MS, RDN, LD documented in this [facility]02-13-2024 History of Present illness Narrative* Josef Elder MD - 05/20/2023 9:10 AM EST Images from the original note were not included. HPI, PHYSICAL EXAMINATION & PLAN POST-OP HPI: Patient here today for 1 week post-weight loss surgery follow up, LSG Visit Diagnoses: 1. Primary hypertension 2. Deficiency of multiple nutrient elements 3. S/P gastric sleeve procedure 4. Morbid obesity with BMI of 45.0-49.9, adult (HCC) 5. Hypothyroidism, unspecified type HPI: The patient is feeling good. Denies nausea, vomiting, dysphagia, or any GERD Sx. Currently Taking is taking a PPI. Patient currently walking. Instructed no lifting heavier than 15lbs until [address] to start supplements. Drinking 40 oz of fluids. Denies pain. Review of Systems Constitutional: Negative for fatigue and fever. HENT: Negative for congestion, rhinorrhea and trouble swallowing. Respiratory: Negative for cough, chest tightness and shortness of breath. Cardiovascular: Negative for chest pain, palpitations and leg swelling. Gastrointestinal: Negative for abdominal distention, abdominal pain, blood in stool, constipation, diarrhea and nausea. Genitourinary: Negative for dysuria, flank pain, frequency and urgency. Musculoskeletal: Negative for arthralgias, back pain and myalgias. Skin: Negative for color change and rash. Neurological: Negative for light-headedness and headaches. Psychiatric/Behavioral: Negative for dysphoric mood. The patient is not nervous/anxious. Vital signs are stable. Labs were not drawn. Physical Examination: BP (!) 146/86 Pulse (!) 112 Temp 36.2 C (97.2 F) Resp 16 Ht 5' 1.5 (1.562 m) Comment: BCC Wt 245 lb (111 kg) SpO2 96% BMI 45.54 kg/m General: This patient is awake, alert, and oriented, and is in no apparent distress. Respiratory: Non-labored breathing Abdomen: Obese, soft, non-tender, non-distended without masses/ No evidence of abdominal hernia / Incisions consistent with previous surgeries. Head and Neck: Obese, normocephalic and atraumatic/soft and supple Extremities: No cyanosis, clubbing or edema/ No calf tenderness/No restrictions of movement, is ambulatory without assistance. Neurological: Intact x 4 extremities, no focal deficits notes. Skin: No rashes or lesions noted. Rectal: Deferred Surgical site: is:clean, dry, intact, and nontender Drainage from surgical site: none Patient does not have a superficial incisional SSI Plan: Orders Placed This Encounter Procedures Zinc These orders are set for an approximate date - they can be drawn up to 3 months prior to the Expected Date on this Req. Please send results to: Bryan Barboza [address] [facility] [id number] - [phone] And if not done at a [place] [facility], please send to: [address], [address] Patient Name: Sloane Ruelas 1950 Order Created by : Heidy Graves LPN Standing Status: Future Number of Occurrences: 1 Standing Expiration Date: 05/20/2024 Folate These orders are set for an approximate date - they can be drawn up to 3 months prior to the Expected Date on this Req. Please send results to: Bryan Barboza [place] [address] [place] [address] [facility] [address] - [phone] And if not done at a [place] [facility], please send to: [address], [facility] Patient Name: Sloane Ruelas 1950 Order Created by : Heidy Graves LPN Standing Status: Future Number of Occurrences: 1 Standing Expiration Date: 05/20/2024 Iron These orders are set for an approximate date - they can be drawn up to 3 months prior to the Expected Date on this Req. Please send results to: Bryan Barboza [address] [facility] [id number] - [phone] And if not done at a [place] [facility], please send to: [address], [address] Patient Name: Sloane Ruelas 1950 Order Created by : Heidy Graves LPN Standing Status: Future Number of Occurrences: 1 Standing Expiration Date: 05/20/2024 Ferritin These orders are set for an approximate date - they can be drawn up to 3 months prior to the Expected Date on this Req. Please send results to: [address] [facility] [address] - [phone] And if not done at a [facility] [facility], please send to: [address], [facility] Patient Name: Sloane Rinaldi - 1950 Order Created by : Heidy Graves LPN Standing Status: Future Number of Occurrences: 1 Standing Expiration Date: 05/20/2024 Magnesium These orders are set for an approximate date - they can be drawn up to 3 months prior to the Expected Date on this Req. Please send results to: [address] [facility] [address] - [phone] And if not done at a [facility] [facility], please send to: [address], [facility] Patient Name: Sloane Ruelas 1950 Order Created by : Heidy Graves LPN Standing Status: Future Number of Occurrences: 1 Standing Expiration Date: 05/20/2024 Vitamin B12 These orders are set for an approximate date - they can be drawn up to 3 months prior to the Expected Date on this Req. Please send results to: [address] [facility] [address] - [phone] And if not done at a [place] [facility], please send to: [address], [address] Patient Name: Sloane Ruelas 1950 Order Created by : Heidy Graves LPN Standing Status: Future Number of Occurrences: 1 Standing Expiration Date: 05/20/2024 Comprehensive metabolic panel These orders are set for an approximate date - they can be drawn up to 3 months prior to the Expected Date on this Req. Please send results to: Bryan Marie [facility] [address] [facility] [id number] - [phone] And if not done at a [facility] [facility], please send to: [address], [address] Patient Name: Sloane Rinaldi - 1950 Order Created by : Heidy Graves LPN Standing Status: Future Number of Occurrences: 1 Standing Expiration Date: 05/20/2024 CBC These orders are set for an approximate date - they can be drawn up to 3 months prior to the Expected Date on this Req. Please send results to: Bryan Barboza [place] [address] [facility] [address] [facility] [id number] - [phone] And if not done at a [place] [facility], please send to: [facility] - [address] [place] [address], [address] Patient Name: Sloane Rinaldi - 1950 Order Created by : Heidy Graves LPN Standing Status: Future Number of Occurrences: 1 Standing Expiration Date: 05/20/2024 Vitamin B1, whole blood Standing Status: Future Number of Occurrences: 1 Standing Expiration Date: 05/20/2024 Medications ordered during this encounter: Outpatient Encounter Medications as of 05/20/2023 Medication Sig Dispense Refill albuterol 108 (90 Base) MCG/ACT inhaler Daily as needed. levothyroxine (Synthroid, Levoxyl) 100 MCG tablet Take 100 mcg by mouth daily. omeprazole (PriLOSEC) [address] capsule Take 1 capsule (20 mg) by mouth daily. Do not crush or chew.(Patient taking differently: Take 20 mg by mouth daily. Do not crush or chew.) 90 capsule 1 losartan-hydroCHLOROthiazide (Hyzaar) 50-12.5 MG tablet Take 1 tablet by mouth daily. Multiple Vitamins-Iron (MULTIPLE VITAMIN/IRON PO) Take by mouth daily. ondansetron (Zofran) 4 MG tablet Take 1 tablet (4 mg) by mouth every 8 hours as needed for nausea or vomiting for up to 7 days. (Patient not taking: Reported on 05/20/2023) 21 tablet 0 oxyCODONE (Roxicodone) 5 MG immediate release tablet Take 1 tablet (5 mg) by mouth every 6 hours asneeded for severe pain (7-10) for up to 7 days. (Patient not taking: Reported on 05/20/2023) 28 tablet 0 ursodiol (Actigall) 300 MG capsule Take 1 capsule (300 mg) by mouth 2 times daily. (Patient not taking: Reported on 05/20/2023) 180 capsule 0 VITAMIN D, CHOLECALCIFEROL, PO Take 1,000 Int'l Units by mouth daily. Last dose 05/01/23 No facility-administered encounter medications on file as of 05/20/2023. 1). Oral Thrush: negative, Rx: 5ml Nystatin swish and spit every 8 hours x 10days 2). Liver Bx: Final Diagnosis A. LIVER, WEDGE BIOPSY: - MILD STEATOSIS (GRADE 1) Comment: Sections demonstrate an intact liver architecture with mild macrovesicular steatosis occupying approximately 20-30% of the liver volume. There is no evidence of ballooning degeneration, lobular activity, or Milagro's hyaline. The portal tracts contain all normal structures without any significant inflammatory infiltrate. Special stains (iron and trichome) are negative for increased iron storage and fibrosis, respectively. B. STOMACH, PARTIAL GASTRECTOMY: - MILD CHRONIC INACTIVE GASTRITIS Comment: There is no evidence of intestinal metaplasia, dysplasia, or malignancy. The H&E stainshows no evidence of Helicobacter pylori. at 1052 Refer to GI : No 3). Follow up at 1 month office visit with standard labs 4). Patient to see PCP for follow up regarding further management of DM and HTN medications. 5). Continue PPI until 6 month office visit 6). Advance to Pureed diet, RD discussed at office visit 7). Psych concerns: No 8). No lifting >15lbs until 1 month office visit. 9). If patient is a woman of childrearing age- 18-50. We discussed the importance of contraception during the first 12-18 months post op, and we discussed that fertility will increase following the procedure. Advised patient to discuss with her OBGYN regarding contraception. Patient counseled with good understanding verbalized. 10). Weight loss: Post-op Weight Metrics: %EBWL: % EBWL: 12% Weight Change Since Last Visit: Weight Change: -18.6 lbs Weight Change from Highest Pre-op Weight: Total Weight Change: -18.6 lbs 11). Essential Hypertension- Hyzaar on hold. BP controlled. Continued follow up with PCP for management. Current Medications: Patient's Medications New Prescriptions No medications on file Previous Medications ALBUTEROL 108 (90 BASE) MCG/ACT INHALER Daily as needed. LEVOTHYROXINE (SYNTHROID, LEVOXYL) 100 MCG TABLET Take 100 mcg by mouth daily. LOSARTAN-HYDROCHLOROTHIAZIDE (HYZAAR) 50-12.5 MG TABLET Take 1 tablet by mouth daily. MULTIPLE VITAMINS-IRON (MULTIPLE VITAMIN/IRON PO) Take by mouth daily. OMEPRAZOLE (PRILOSEC) [address] CAPSULE Take 1 capsule (20 mg) by mouth daily. Do not crush or chew. ONDANSETRON (ZOFRAN) 4 MG TABLET Take 1 tablet (4 mg) by mouth every 8 hours as needed for nausea or vomiting for up to 7 days. OXYCODONE (ROXICODONE) 5 MG IMMEDIATE RELEASE TABLET Take 1 tablet (5 mg) by mouth every 6 hours asneeded for severe pain (7-10) for up to 7 days. URSODIOL (ACTIGALL) 300 MG CAPSULE Take 1 capsule (300 mg) by mouth 2 times daily. VITAMIN D, CHOLECALCIFEROL, PO Take 1,000 Int'l Units by mouth daily. Last dose 05/01/23 Modified Medications No medications on file Discontinued Medications No medications on file She met with the dietitian today to review are vitamin and protein recommendations. Increase activity as recommended, the wounds are healed, no evidence of abdominal wall hernias. No nausea vomiting or dysphagia noted. Appropriate bowel function, discussed with her regarding contacting us for any questions or concerns. The lab slip was signed for the next visit. Follow up 1 month postop. I personally performed the evaluation and management of Sloane Rinaldi in the development of a treatment plan for this patient. I personally interviewed the patient and performed an individual physical examination. In addition, I discussed the patient's condition and treatment options with them. I have also reviewed and agree with the past medical, family and social history unless otherwise noted.All of the patient's questions were answered. Patient Care Team: Bryan Barboza as PCP - General (Family Medicine) Josef Elder MD as Surgeon (General Surgery) Pretty Rosa RN as Registered Nurse (Bariatrics) * Heidy Graves LPN - 05/20/2023 9:10 AM EST [facility] POST WEIGHT LOSS SURGERY FOLLOW UP - 1 WEEK Rooming Note Patient: Sloane Rinaldi Service Date: 05/20/2023 Patient is 1 week s/p Lap Sleeve Gastrectomy Post-Surgical Weight Loss Date: 05/20/23 Height: 5' 1.5 (156.2 cm) Weight: 245 lb (111 kg) BMI: 45.54 Weight Change: -18.6 lbs Total Weight Change: -18.6 lbs % EBWL: 12% Comments: 1W Pain: Patient rates pain on scale 0-10 as: 0 Patient has the following questions: none Patient is not diabetic If patient IS Diabetic: Patient spoken with the physician who prescribes their diabetic medications Patient resumed their diabetic medications as directed by their physician Patient advised as follows by physician prescribing diabetic medications: Exercise Compliance: Compliance with recommended current exercise plan of walking/frequent ambulation: yes Falls Risk Assessment Patient does take medications which affect BP or mental status currently on hold Patient does not have newly prescribed or changed dosage of medications within past 30 days which affect BP or mental status Patient has not fallen in the past 2 months Patient does not demonstrate unsteady gait Patient uses the following ambulatory assistive devices: none Patient states the presence of the following traits which increases risk of fall: none Patient is low risk for falls. If high or moderate risk, patient instructed not to ambulate independently in the Center, and cord for call light placed within reach of patient. Post-op Weight Metrics: %EBWL: % EBWL: 12% Weight Change Since Last Visit: Weight Change: -18.6 lbs Weight Change from Highest Pre-op Weight: Total Weight Change: -18.6 lbs Completed by: Heidy Graves LPN * Mynor Ruiz RD - 05/20/2023 9:10 AM EST [facility] 1 WEEK VISIT POST-OPERATIVE DIETITIAN Pt is here for 1 week office visit. Pt is currently on a full liquid diet. Pt will advance to a pureed diet today and follow a pureed diet for 10 days. Then, the pt will advance to a soft diet until their 1 month post op office visit. Both of these diets have been reviewed with the pt today. Protein requirements discussed. Patient to consume 65-75 grams daily. Fluid requirements discussed. Patient to consume 64 oz+ daily. Patient is aware that she must consume fluids 30 mintues before and after meals. Exercise activities discussed with the patient. She doeshave a plan for exercise when cleared. Patient advised that regular exercise is vital to a successful outcome following weight loss surgery. Behavioral/Emotional changes reviewed Patient does feel comfortable with changes in eating behaviors and associated emotional changes. She was reminded that psychological counseling is available through the [facility] post-operatively. The importance of vitamin supplementation has been discussed with patient. She will start the following vitamin supplements today: -Multivitamin with minerals and iron -Calcium -Vitamin B12 -Vitamin D3 -Other: Notes/Comments: Patient to advance to pureed diet for 10 days, followed by soft diet. Patient to follow a soft diet until 1 month appointment. Visit completed by: Mynor Ruiz MS, RDN, LD documented in this [facility] [place]02-13-2024 Miscellaneous Notes* Addendum Note - Mynor Ruiz RD - 05/20/2023 9:10 AM ESTAddended by: MYNOR RUIZ on: 05/20/2023 09:44 AM Modules accepted: Orders documented in this [facility] [place]02-13-2024 Miscellaneous Notes* Addendum Note - Mynor Ruiz RD - 05/20/2023 9:10 AM ESTAddended by: MYNOR RUIZ on: 05/20/2023 09:44 AM Modules accepted: Orders * Addendum Note - Katharine Story - 05/20/2023 9:10 AM ESTAddended by: KATHARINE STORY on: 06/11/2023 08:37 AM Modules accepted: Orders documented in this [facility]SOhio[facility] [id number] Note* Addendum Note - Mynor Ruiz RD - 05/20/2023 9:10 AM ESTAddended by: MYNOR RUIZ on: 05/20/2023 09:44 AM Modules accepted: [id number]* Addendum Note - Mynor Ruiz RD - 05/20/2023 9:10 AM ESTAddended by: MYNOR RUIZ on: 05/20/2023 09:44 AM Modules accepted: Orders [facility]02-13-2024 Note* Addendum Note - Mynor Ruiz RD - 05/20/2023 9:10 AM ESTAddended by: MYNOR RUIZ on: 05/20/2023 09:44 AM Modules accepted: Orders [place] [id number] Note* Addendum Note - Mynor Ruiz RD - 05/20/2023 9:10 AM ESTAddended by: MYNOR RUIZ on: 05/20/2023 09:44 AM Modules accepted: Orders [facility] [id number] Note* Addendum Note - Katharine Story - 05/20/2023 9:10 AM ESTAddended by: KATHARINE STORY on: 06/11/2023 08:37 AM Modules accepted: Orders [facility] [id number] Nurse Note* Santi Santamaria RN - 05/15/2023 1:34 PM EST Patient ready for discharge. Belongings gathered, IV removed. Catheter intact. RN reviewed AVS and discharge instructions with patient and visitor. Patient verbalized understanding with no questions/concerns. Discharging to home. [facility] [id number] Nurse Note* Santi Santamaria RN - 05/15/2023 1:34 PM EST Patient ready for discharge. Belongings gathered, IV removed. Catheter intact. RN reviewed AVS and discharge instructions with patient and visitor. Patient verbalized understanding with no questions/concerns. Discharging to home. documented in this [facility] [place]02-07-2024 History of Present illness Narrative* Kristina Fonseca RRT - 05/14/2023 5:47 PM EST [facility] Progress Note As part of the Respiratory Assessment Program (RAP), the following Respiratory Therapist evaluationhas been completed, including a chart review and clinical/physical assessment. Respiratory Therapist RAP Evaluation Guideline Points 0 1 2 3 4 Points Strongly Consider History Factor No Pulmonary conditions Stable Pulmonary condition(s) Surgery or Intervention that may impact Pulmonary system (at risk) Surgery or Intervention that is impacting Pulmonary system Active Exacerbation of Pulmonary Condition 1 Respiratory Pattern Regular, RR= 12-18 REDDY or Increased RR= 19-24 Irregular, or RR= 25-30 SOB, talk in short sentences, or RR= 31-35 Severe SOB, accessory muscle use, one word answers, or RR>35 0 Aerosol Med(s), High Flow O2 Breath Sounds Clear Diminished in 1 lobe Diminished in ? 2 lobes Adventitious breath sounds Coarse crackles, Wheezes, or Diminished in >2 lobes 0 Aerosol Med(s), Bronchial Hygiene, Hyperinflation Cough & Sputum Strong cough, no secretion retention or production Weak cough, no secretion retention or production Weak cough, w/ production (less often than Q2hr), or secretion retention No cough, w/ secretion retention or production (less often than Q2hr) Significant secretion production (more often than Q2hr) or mucus plug 0 Aerosol Med(s), Bronchial Hygiene, Hyperinflation Level of Activity Ambulatory Ambulatory with Assist Up in chair or edge of bed (dangle) Non-ambulatory, bedridden with active ROM Completely paralyzed or without active ROM 0 Triage 5 0-2 Triage 4 3-5 Triage 3 6-10 Triage 2 11-14 Triage 1 ?15 Total 1 Triage Score = 5 TRIAGE SCORING - SUGGESTED FREQUENCIES Aerosol Therapy Bronchial Hygiene Hyperinflation Triage Score Q4h & PRN 1 Q4hWA (QID) & PRN 2 TID & PRN 3 BID & PRN 4 PRN 5 Therapy(s) Indicated Yes/No Aerosol Medication no Hyperinflation no Bronchial Hygiene no High Flow Oxygen no RT to enter/modify frequency of treatment order in EMR/EHR to match this RAP evaluation. Based on this RAP evaluation the following therapy is being initiated: aerosol At the following frequency: PRN, IS @ bedside Comments: Thank you for involving Respiratory in the care of this patient, documented in this [facility] [place]02-07-2024 Hospital Discharge instructions* Discharge Instructions* Adriana Shannon RD - 05/14/2023 2:16 PM EST Postoperative Patient Instructions Laparoscopic Sleeve Gastrectomy Procedure If your surgical incisions are covered with steri-strips (white paper tape), leave them in place. It is ok if they fall off on their own. If your incisions have gabby, they will be removed at your next office visit with your surgeon. If you feel the gabby are catching or rubbing on your abdominal binder or clothing, you may place a BAND-AID over them. Wear your elastic abdominal binder as youdesire for comfort. Take your temperature twice a day for the first postoperative week. Call if temperature is greater than 101 F. A fever could be a sign of infection or surgical complication. You may shower at any point. Wash your incisions with the Hibiclens you bought before surgery or Dial. Use only soap and water on the sites and blot the incisions dry. Do not use ointments, lotions or powders. If incisions begin to look infected (redness, swelling, drainage, pain), notify your hose inspector. Resume your home medications as directed by your surgeon and your nurse onsite case manager. Make an appointment with your prescribing physician if you are taking medication for your blood pressure or diabetes. You will need close follow-up regarding your medical conditions, as you will soon be off many of these medications. No aspirin or aspirin containing medications should be taken at all, unless directed otherwise by your surgeon. Follow our food guidelines closely. Remember, clear liquids for the first two days after surgery. No sugar, caffeine or carbonation. Your fluid requirement is 64 oz. per day. You may advance to full liquids on post- op day three. This is in addition to the clear liquid diet. Do not take your calcium, vitamin B12, multivitamin or Actigall (if ordered) until after your one week appointment. All proton pump inhibitor medication (Prilosec, Protonix etc.), should be taken starting the day after you are discharged home. Take daily. No alcoholic beverages at all during the first 18 months post-op. No lifting. pushing, or pulling over 15 lbs. for one month You may go up and down stairs. No driving for one week after surgery. Do not drive if you are taking prescription pain medication. Walking as part of your daily activities is required immediately. It is recommended that you shouldwalk for 5 minutes every hour you are awake to help decrease the risk of blood clots after surgery.Walking helps prevent blood clots from forming. A blood clot that forms in your legs or arms is called Deep Vein Thrombosis (DVT). Signs of DVT include pain, redness, swelling and warmth. A blood clot that travels to your lungs is called a Pulmonary Embolism (PE). Symptoms of PE include shortness of breath, pain with breathing, chest pain/discomfort or rapid heartbeat. You will be able to begin exercising in four to six weeks but must be cleared by your surgeon at your one-month appointment. Use your incentive spirometer from the hospital for the first postoperative week as instructed. Useit ten times every other hour while awake. Prior to returning to work, you will be seen, evaluated and cleared by your surgeon. Remember, you will have pain. Take your pain medicine so that you are comfortable enough to cough, take deep breaths and walk. Fatigue is quite common in the first postoperative week. Rest appropriately in response to this fatigue. Remember that mobility after surgery is very important. You must not remain in a sitting or recumbent position for long periods of time. If you have obstructive sleep apnea and have been prescribed a CPAP machine, you must continue to use this device after surgery. Please call the [facility] at [phone] if you have any questions or concerns during business hours: Friday through Friday, 8 a.m. to 4:30 p.m. The answering service may be called during non- business hours at [phone]. Call your surgeon for problems, or if you have any of the following: Temperature greater than 101 F. Take your temperature twice a day in the morning and evening until your first office visit Redness, pain, swelling or drainage from any of the incisions Inability to pass urine or have bowel movements ANY shortness of breath, chest pain, leg swelling or leg pain (in one or both of your legs) Rapid heart rate Nausea or vomiting with the inability to keep liquids down Bleeding from your rectum Frequently feeling dizzy or light-headed, inability to walk Abnormal drain color appearance if you had a drain placed. If you have a medical emergency, call 911 or go to the closest hospital emergency room. Your one week and one month follow-up office visits with your surgeon at the [facility] are located in the discharge folder. These are required visits and important for your safety and recovery. [facility] DIETITIAN DISCHARGE INSTRUCTIONS The following information was reviewed with the patient, and the patient was given a hard copy of these instructions by the Bariatric Registered Dietitian. Overview of Post-Op Diet Protocol for Patients Following Gastric Bypass or Sleeve Gastrectomy Your dietitian will meet with you in the hospital before you are discharged to review the diet in more details and to answer any questions you may have, Day of Surgery (after you wake up from surgery) Nothing to eat or drink Post-op Day 1 If you are having an UGI xray, you will begin your clear liquids after you are notified that the results are back and you are cleared to begin If you are NOT having an UGI xray, you will begin your clear liquids as soon as your nurse notifiesyou that it is OK to start. Post-Op Day 2 Continue your bariatric clear liquid diet Post-op Day 3 Begin full liquid diet and continue until after your 1 week post-op visit You will continue to follow the full liquid diet until after you meet with your dietitian during your 1 week post-op office visit. The next diet phases will be reviewed and discussed with your duringthat visit, If you have questions about your diet(s), please contact the Bariatric Dietitians at [phone]. documented in this [facility] [place]02-07-2024 Attending History and physical note* Josef Elder MD - 05/14/2023 11:19 AM EST Images from the original note were not included. [facility] - Surgery [facility] Physicians Surgery Patient Name: Sloane Rinaldi Date: 05/14/23 Update History & Physical The patient's History and Physical was reviewed with the patient and there were no significant changes. I examined the patient and there were no significant changes from the previous History and Physical. I verify that the patient's condition and planned treatment has not changed. I also confirm the necessity for the procedure still present. Plan: The risk, benefits, expected outcome, and alternative to the recommended procedure have been discussed with the patient. Patient understands and wants to proceed with the procedure. Source Note - Vandana Mayen APRN - [employer]ANT - 05/07/2023 10:30 AM EST Images from the original note were not included. Comprehensive Pre Surgical History and Physical ? Name: Sloane Rinaldi : 1950 (Age-72 y.o.) Date of Service: Pt seen/examined on 05/07/2023 Procedure Information Date/Time: 05/14/23 1200 Procedures: LAPAROSCOPIC SLEEVE GASTRECTOMY WITH LIVER WEDGE BIOPSY POSSIBLE OPEN (Abdomen) - THIS CASE REQUIRES 120MINS UNLISTED LAPAROSCOPIC PROCEDURE LIVER (Abdomen) Location: [facility] Operating Room Surgeons: Josef Elder MD Chief Complaint: Morbid (severe) obesity due to excess calories (HCC) [E66.01] ASSESSMENT/PLAN: Patient is considered intermediate risk for this intermediate level 2 risk procedure/surgery () with no reducible risk factors. Based on the above evaluation, the benefits of the planned procedure likely exceed the risks. The patient is medically optimized to proceed with the planned procedure without any further cardiopulmonary testing. 1) Morbid (severe) obesity due to excess calories (HCC) [E66.01] - Managed per surgery - A1c completed 02/17/23 5.7 - Orders per PAT Protocol: BMP, CBC, Albumin. EKG in 03/2023, does not require repeat. A1c within 90 days, insurance will not allow for repeat - EKG 03/24/23 reviewed: Sinus Rhythm, R BBB - METS >4. No further evaluation required - From last office Visit with Bariatrics 04/30/23: 2) HTN BP Readings from Last 3 Encounters: 05/07/23 (!) 154/100 04/30/23 134/82 04/11/23 128/79 - Elevated in PAT, asymptomatic - Repeat BP 149/82 - Managed with Hyzarr - Advised to follow up with her PCP for continued monitoring and management 3) Asthma - Stable, denies exacerbations - Managed with albuterol MDI prn - Last used rescue inhaler >1 year ago - Lungs CTA, NAD noted - No further evaluation is required 4) Pre-diabetic - Last A1c 5.7 on 02/17/23 - Managed with None - Blood glucose goal is <250 DOS - Per PAT protocol; A1c > 9 requires a referral back to PCP/[employer] Professional for further optimization prior to surgery. 5) Hypothyroidism - Asymptomatic - Last TSH 02/17/23 WNL - Managed with Levothyroxine Visit Type: Pre-Admission Testing Visit Labs Ordered: YES - PER PAT PROTOCOL Sleep Referral Ordered: NO - NEGATIVE SCREEN PER SLEEP REFERRAL PROTOCOL Total time spent (which include face to face and non face to face encounters) : 35 minutes Toxic drug monitoring/narrow therapeutic index drug monitoring : # Drug name : hyzarr # Route administered : PO # Method of monitoring : BMP PAT Protocol referenced includes: 1. Anesthesia Lab Protocol Orders 2. Perioperative Cardiovascular Risk Assessment 3. Anesthesia Assessment 4. Pain Assessment and Acute Pain Service Consult (if appropriate) 5. Medical Clearance/Consult from Internal Medicine (IMS) 6. Shower/Wash Order (for designated surgeries) 7. VINAY Screen and Sleep Clinic Referral (if appropriate) History Of Present Illness: 72 y.o. female who we are asked to see/evaluate by Dr. Elder for pre-operative evaluation prior to ? Case: [id number] Date/Time: 05/14/23 1200 Procedures: LAPAROSCOPIC SLEEVE GASTRECTOMY WITH LIVER WEDGE BIOPSY POSSIBLE OPEN (Abdomen) [50894 CPT(R)] - THIS CASE REQUIRES 120MINS UNLISTED LAPAROSCOPIC PROCEDURE LIVER (Abdomen) [65211 CPT(R)] Anesthesia type: General Diagnosis: Morbid (severe) obesity due to excess calories (HCC) [E66.01] Pre-op diagnosis: Morbid (severe) obesity due to excess calories (HCC) [E66.01] Location: [facility] [address] [place] [address] Operating Room Surgeons: Josef Elder MD From last office visit with bariatrics. Tanika Faye on 04/30/23: The patient is a 72 y.o. yearold female with morbid obesity, who stands Height: 5' 1.5 (156.2 cm) tall with a weight of Weight:261 lb 6.4 oz (119 kg) , resulting in a BMI of Body mass index is 48.59 kg/m .. The patient is scheduled to undergo weight loss surgery to treat the following comorbid conditions that are directly associated with or indirectly associated with obesity: Patient plans to proceed with above procedure for weight management and HTN. Patient denies exertional chest pain/shortness of breath. Denies dizziness, syncope, lightheadedness. Denies fever, chills, weakness or fatigue. Patient denies any recent illness, infections, or wounds. Patient denies abdominal pain, nausea, vomiting, diarrhea, or constipation. Patient denies hx of CAD, CHF, HI, TIA/CVA, diabetes, COPD, VINAY, DVT/PE. Past Medical History: Past Medical History: No date: Asthma No date: Back pain No date: COVID-19 vaccine series not completed No date: Fatigue No date: Fractures No date: History of prediabetes No date: Hypertension No date: Hypothyroidism No date: Joint pain No date: Melanoma (HCC) Comment: right arm with lymph nodes removed No date: Palpitations No date: Prediabetes No date: SOB (shortness of breath) on exertion Past Surgical History: Past Surgical History: No date: COLONOSCOPY 1994: EXTREMITY SURGERY 1998: OTHER SURGICAL HISTORY Comment: rt arm melanoma No date: TIBIA FRACTURE SURGERY; Right Comment: plate and 7 srews Medications Prior to Admission: Current Outpatient Medications on File Prior to Visit Medication Sig Dispense Refill levothyroxine (Synthroid, Levoxyl) 100 MCG tablet Take 100 mcg by mouth daily. Multiple Vitamins-Iron (MULTIPLE VITAMIN/IRON PO) Take by mouth daily. albuterol 108 (90 Base) MCG/ACT inhaler Daily as needed. losartan-hydroCHLOROthiazide (Hyzaar) 50-12.5 MG tablet Take 1 tablet by mouth daily. omeprazole (PriLOSEC) [address] capsule Take 1 capsule (20 mg) by mouth daily. Do not crush or chew.(Patient taking differently: Take 20 mg by mouth daily. Do not crush or chew. After surgery) 90 capsule 1 ursodiol (Actigall) 300 MG capsule Take 1 capsule (300 mg) by mouth 2 times daily. (Patient taking differently: Take 300 mg by mouth 2 times daily. After surgery) 180 capsule 0 VITAMIN D, CHOLECALCIFEROL, PO Take 1,000 Int'l Units by mouth daily. Last dose 05/01/23 No current facility-administered medications on file prior to visit. CHRONIC NARCOTIC USE: No Allergies: Sulfa antibiotics and Sulfamethoxazole-trimethoprim If patient has opioid allergy, is it okay to take Acetaminophen: Yes Social History: TOBACCO: reports that she has never smoked. She has never used smokeless tobacco. ETOH: reports current alcohol use. Social History Substance and Sexual Activity Drug Use Never Family History: Family History Problem Relation Name Age of Onset Asthma Father Cancer Sister Hypertension Brother Heart disease Brother Diabetes Brother Obesity Brother REVIEW OF SYSTEMS: Review of Systems Constitutional: Negative. HENT: Negative. Respiratory: Negative. Cardiovascular: Negative. Gastrointestinal: Negative. Endocrine: Negative. Genitourinary: Positive for frequency (Intermittent). Musculoskeletal: Negative. Skin: Negative. Allergic/Immunologic: Negative. Neurological: Negative. Hematological: Negative. Psychiatric/Behavioral: Negative. Physical Exam: Physical Exam Vitals reviewed. Constitutional: Appearance: Normal appearance. She is obese. HENT: Head: Normocephalic. Mouth/Throat: Mouth: Mucous membranes are moist. Pharynx: Oropharynx is clear. Eyes: Conjunctiva/sclera: Conjunctivae normal. Pupils: Pupils are equal, round, and reactive to light. Cardiovascular: Rate and Rhythm: Normal rate and regular rhythm. Pulses: Normal pulses. Heart sounds: Normal heart sounds. Comments: No Carotid Bruits noted Nonpitting LE edema BL Pulmonary: Effort: Pulmonary effort is normal. Abdominal: General: Abdomen is flat. Bowel sounds are normal. Palpations: Abdomen is soft. Genitourinary: Comments: Deferred Musculoskeletal: General: Normal range of motion. Cervical back: Normal range of motion. Skin: General: Skin is warm and dry. Capillary Refill: Capillary refill takes less than 2 seconds. Neurological: General: No focal deficit present. Mental Status: She is alert and oriented to person, place, and time. Psychiatric: Mood and Affect: Mood normal. Behavior: Behavior normal. Vitals: Vitals Value Taken Time BP 154/100 05/07/23 1033 Temp 36.7 C (98.1 F) 05/07/23 1033 Pulse 92 05/07/23 1033 Resp 20 05/07/23 1033 SpO2 95 % 05/07/23 1033 Labs: Lab Results Component Value Date WBC 6.5 02/17/2023 HGB 14.7 02/17/2023 HCT 43.4 02/17/2023 MCV 92.7 02/17/2023 PLT 267 02/17/2023 Lab Results Component Value Date NA 140 02/17/2023 K 4.0 02/17/2023 CL 108 (H) 02/17/2023 CO2 24 02/17/2023 BUN 24 (H) 02/17/2023 CREATININE 0.83 02/17/2023 GLUCOSE 153 (H) 02/17/2023 CALCIUM 9.4 02/17/2023 PROT 7.7 02/17/2023 ALKPHOS 64 02/17/2023 AST 28 02/17/2023 ALT 32 02/17/2023 EGFR 75.5 02/17/2023 Sage's Simple Cardiac Risk Index: SAGE'S SIMPLE CARDIAC RISK SCORE: 0 Interpretation: 0 Points Class I 0.5% 1 Point Class II 1.3% 2 Points Class III 3.6% 3+ Points Class IV 9.1% PAT Pain Score: Postop Pain Management Plan (Pain consult ordered?): Pain consult not indicated at this time ? EKG: Yes, completed 03/24/23 Encounter Date: 03/24/23 ECG 12 lead - CLINIC PERFORMED Narrative Sinus Rhythm -Right bundle branch block. ABNORMAL ECHO and EF:None on file METS: Yes, >4 Electronically signed by: HUSSAIN Zhang CNP Date: 05/07/2023 at 10:48 AM [employer] Work Phone: [phone] 731-571602-07-2024 History and physical note* Josef Elder MD - 05/14/2023 11:19 AM EST Images from the original note were not included. [facility] - Surgery [facility] Physicians Surgery Patient Name: Sloane Rinaldi Date: 05/14/23 Update History & Physical The patient's History and Physical was reviewed with the patient and there were no significant changes. I examined the patient and there were no significant changes from the previous History and Physical. I verify that the patient's condition and planned treatment has not changed. I also confirm the necessity for the procedure still present. Plan: The risk, benefits, expected outcome, and alternative to the recommended procedure have been discussed with the patient. Patient understands and wants to proceed with the procedure. Source Note - HUSSAIN Zhang CNP - 05/07/2023 10:30 AM EST Images from the original note were not included. Comprehensive Pre Surgical History and Physical ? Name: Sloane Rinaldi : 1950 (Age-72 y.o.) Date of Service: Pt seen/examined on 05/07/2023 Procedure Information Date/Time: 05/14/23 1200 Procedures: LAPAROSCOPIC SLEEVE GASTRECTOMY WITH LIVER WEDGE BIOPSY POSSIBLE OPEN (Abdomen) - THIS CASE REQUIRES 120MINS UNLISTED LAPAROSCOPIC PROCEDURE LIVER (Abdomen) Location: [facility] [address] [place] [address] Operating Room Surgeons: Josef Elder MD Chief Complaint: Morbid (severe) obesity due to excess calories (HCC) [E66.01] ASSESSMENT/PLAN: Patient is considered intermediate risk for this intermediate level 2 risk procedure/surgery () with no reducible risk factors. Based on the above evaluation, the benefits of the planned procedure likely exceed the risks. The patient is medically optimized to proceed with the planned procedure without any further cardiopulmonary testing. 1) Morbid (severe) obesity due to excess calories (HCC) [E66.01] - Managed per surgery - A1c completed 02/17/23 5.7 - Orders per PAT Protocol: BMP, CBC, Albumin. EKG in 03/2023, does not require repeat. A1c within 90 days, insurance will not allow for repeat - EKG 03/24/23 reviewed: Sinus Rhythm, R BBB - METS >4. No further evaluation required - From last office Visit with Bariatrics 04/30/23: 2) HTN BP Readings from Last 3 Encounters: 05/07/23 (!) 154/100 04/30/23 134/82 04/11/23 128/79 - Elevated in PAT, asymptomatic - Repeat BP 149/82 - Managed with Hyzarr - Advised to follow up with her PCP for continued monitoring and management 3) Asthma - Stable, denies exacerbations - Managed with albuterol MDI prn - Last used rescue inhaler >1 year ago - Lungs CTA, NAD noted - No further evaluation is required 4) Pre-diabetic - Last A1c 5.7 on 02/17/23 - Managed with None - Blood glucose goal is <250 DOS - Per PAT protocol; A1c > 9 requires a referral back to PCP/[employer] Professional for further optimization prior to surgery. 5) Hypothyroidism - Asymptomatic - Last TSH 02/17/23 WNL - Managed with Levothyroxine Visit Type: Pre-Admission Testing Visit Labs Ordered: YES - PER PAT PROTOCOL Sleep Referral Ordered: NO - NEGATIVE SCREEN PER SLEEP REFERRAL PROTOCOL Total time spent (which include face to face and non face to face encounters) : 35 minutes Toxic drug monitoring/narrow therapeutic index drug monitoring : # Drug name : nam # Route administered : PO # Method of monitoring : BMP PAT Protocol referenced includes: 1. Anesthesia Lab Protocol Orders 2. Perioperative Cardiovascular Risk Assessment 3. Anesthesia Assessment 4. Pain Assessment and Acute Pain Service Consult (if appropriate) 5. Medical Clearance/Consult from Internal Medicine (IMS) 6. Shower/Wash Order (for designated surgeries) 7. VINAY Screen and Sleep Clinic Referral (if appropriate) History Of Present Illness: 72 y.o. female who we are asked to see/evaluate by Dr. Elder for pre-operative evaluation prior to ? Case: [id number] Date/Time: 05/14/23 1200 Procedures: LAPAROSCOPIC SLEEVE GASTRECTOMY WITH LIVER WEDGE BIOPSY POSSIBLE OPEN (Abdomen) [86187 CPT(R)] - THIS CASE REQUIRES 120MINS UNLISTED LAPAROSCOPIC PROCEDURE LIVER (Abdomen) [39557 CPT(R)] Anesthesia type: General Diagnosis: Morbid (severe) obesity due to excess calories (HCC) [E66.01] Pre-op diagnosis: Morbid (severe) obesity due to excess calories (HCC) [E66.01] Location: [facility] [address] [place] [address] Operating Room Surgeons: Josef Elder MD From last office visit with bariatrics. Tanika Ragsdale on 04/30/23: The patient is a 72 y.o. yearold female with morbid obesity, who stands Height: 5' 1.5 (156.2 cm) tall with a weight of Weight:261 lb 6.4 oz (119 kg) , resulting in a BMI of Body mass index is 48.59 kg/m .. The patient is scheduled to undergo weight loss surgery to treat the following comorbid conditions that are directly associated with or indirectly associated with obesity: Patient plans to proceed with above procedure for weight management and HTN. Patient denies exertional chest pain/shortness of breath. Denies dizziness, syncope, lightheadedness. Denies fever, chills, weakness or fatigue. Patient denies any recent illness, infections, or wounds. Patient denies abdominal pain, nausea, vomiting, diarrhea, or constipation. Patient denies hx of CAD, CHF, HI, TIA/CVA, diabetes, COPD, VINAY, DVT/PE. Past Medical History: Past Medical History: No date: Asthma No date: Back pain No date: COVID-19 vaccine series not completed No date: Fatigue No date: Fractures No date: History of prediabetes No date: Hypertension No date: Hypothyroidism No date: Joint pain No date: Melanoma (HCC) Comment: right arm with lymph nodes removed No date: Palpitations No date: Prediabetes No date: SOB (shortness of breath) on exertion Past Surgical History: Past Surgical History: No date: COLONOSCOPY 1994: EXTREMITY SURGERY 1997: OTHER SURGICAL HISTORY Comment: rt arm melanoma No date: TIBIA FRACTURE SURGERY; Right Comment: plate and 7 srews Medications Prior to Admission: Current Outpatient Medications on File Prior to Visit Medication Sig Dispense Refill levothyroxine (Synthroid, Levoxyl) 100 MCG tablet Take 100 mcg by mouth daily. Multiple Vitamins-Iron (MULTIPLE VITAMIN/IRON PO) Take by mouth daily. albuterol 108 (90 Base) MCG/ACT inhaler Daily as needed. losartan-hydroCHLOROthiazide (Hyzaar) 50-12.5 MG tablet Take 1 tablet by mouth daily. omeprazole (PriLOSEC) [address] capsule Take 1 capsule (20 mg) by mouth daily. Do not crush or chew.(Patient taking differently: Take 20 mg by mouth daily. Do not crush or chew. After surgery) 90 capsule 1 ursodiol (Actigall) 300 MG capsule Take 1 capsule (300 mg) by mouth 2 times daily. (Patient taking differently: Take 300 mg by mouth 2 times daily. After surgery) 180 capsule 0 VITAMIN D, CHOLECALCIFEROL, PO Take 1,000 Int'l Units by mouth daily. Last dose 05/01/23 No current facility-administered medications on file prior to visit. CHRONIC NARCOTIC USE: No Allergies: Sulfa antibiotics and Sulfamethoxazole-trimethoprim If patient has opioid allergy, is it okay to take Acetaminophen: Yes Social History: TOBACCO: reports that she has never smoked. She has never used smokeless tobacco. ETOH: reports current alcohol use. Social History Substance and Sexual Activity Drug Use Never Family History: Family History Problem Relation Name Age of Onset Asthma Father Cancer Sister Hypertension Brother Heart disease Brother Diabetes Brother Obesity Brother REVIEW OF SYSTEMS: Review of Systems Constitutional: Negative. HENT: Negative. Respiratory: Negative. Cardiovascular: Negative. Gastrointestinal: Negative. Endocrine: Negative. Genitourinary: Positive for frequency (Intermittent). Musculoskeletal: Negative. Skin: Negative. Allergic/Immunologic: Negative. Neurological: Negative. Hematological: Negative. Psychiatric/Behavioral: Negative. Physical Exam: Physical Exam Vitals reviewed. Constitutional: Appearance: Normal appearance. She is obese. HENT: Head: Normocephalic. Mouth/Throat: Mouth: Mucous membranes are moist. Pharynx: Oropharynx is clear. Eyes: Conjunctiva/sclera: Conjunctivae normal. Pupils: Pupils are equal, round, and reactive to light. Cardiovascular: Rate and Rhythm: Normal rate and regular rhythm. Pulses: Normal pulses. Heart sounds: Normal heart sounds. Comments: No Carotid Bruits noted Nonpitting LE edema BL Pulmonary: Effort: Pulmonary effort is normal. Abdominal: General: Abdomen is flat. Bowel sounds are normal. Palpations: Abdomen is soft. Genitourinary: Comments: Deferred Musculoskeletal: General: Normal range of motion. Cervical back: Normal range of motion. Skin: General: Skin is warm and dry. Capillary Refill: Capillary refill takes less than 2 seconds. Neurological: General: No focal deficit present. Mental Status: She is alert and oriented to person, place, and time. Psychiatric: Mood and Affect: Mood normal. Behavior: Behavior normal. Vitals: Vitals Value Taken Time BP 154/100 05/07/23 1033 Temp 36.7 C (98.1 F) 05/07/23 1033 Pulse 92 05/07/23 1033 Resp 20 05/07/23 1033 SpO2 95 % 05/07/23 1033 Labs: Lab Results Component Value Date WBC 6.5 02/17/2023 HGB 14.7 02/17/2023 HCT 43.4 02/17/2023 MCV 92.7 02/17/2023 PLT 267 02/17/2023 Lab Results Component Value Date NA 140 02/17/2023 K 4.0 02/17/2023 CL 108 (H) 02/17/2023 CO2 24 02/17/2023 BUN 24 (H) 02/17/2023 CREATININE 0.83 02/17/2023 GLUCOSE 153 (H) 02/17/2023 CALCIUM 9.4 02/17/2023 PROT 7.7 02/17/2023 ALKPHOS 64 02/17/2023 AST 28 02/17/2023 ALT 32 02/17/2023 EGFR 75.5 02/17/2023 Sage's Simple Cardiac Risk Index: SAGE'S SIMPLE CARDIAC RISK SCORE: 0 Interpretation: 0 Points Class I 0.5% 1 Point Class II 1.3% 2 Points Class III 3.6% 3+ Points Class IV 9.1% PAT Pain Score: Postop Pain Management Plan (Pain consult ordered?): Pain consult not indicated at this time ? EKG: Yes, completed 03/24/23 Encounter Date: 03/24/23 ECG 12 lead - CLINIC PERFORMED Narrative Sinus Rhythm -Right bundle branch block. ABNORMAL ECHO and EF:None on file METS: Yes, >4 Electronically signed by: Vandana Mayen APRN - [employer] SAL[employer] CONSULTANT Date: 05/07/2023 at 10:48 AM documented in this encounterSOhioHealth Doctors [id number] Telephone encounter Note* Telephone Encounter - Tanika Ragsdale NP - 04/30/2023 2:44 PM EST Noted and agree. [facility] [id number] Miscellaneous Notes* Telephone Encounter - Tanika Ragsdale NP - 04/30/2023 2:44 PM EST Noted and agree. * Telephone Encounter - Pretty Rosa RN - 04/30/2023 7:17 AM EST DVT PPX Risk Factors [] Male [x] Age >= 60 years [] BMI >= 50 kg/m^2 [] CHF [] Dyspnea at Rest [] Paraplegia [x] Non-Gastric Band Surgery [] Anticipate Operative Time > 3 hours [] Anticipate Length of Stay >3 days Automatic 4 Weeks of Therapy [] Congenital or Acquired Hypercoagulable Conditions (Factor V Leiden, Prothrombin) [] Past History of DVT or PE [] Significant Chronic Venous Insufficiency Calculated Risk Score: 0.31% No Lovenox indicated Risk % Weeks </> BMI 50 SQ Dose [x] Moderate <0.4% 0 None [] High Risk 0.4% - 1% 2 [] 40 mg Lovenox BID [] 60 mg Lovenox BID [] Very High Risk >1% 4 [] 40 mg Lovenox BID [] 60 mg Lovenox BID documented in this [facility] [place]01-24-2024 History of Present illness Narrative* Tanika Ragsdale NP - 04/30/2023 2:15 PM EST Images from the original note were not included. Patient History/Assessment Summary: The patient is a 72 y.o. year old female with morbid obesity, who stands Height: 5' 1.5 (156.2 cm)tall with a weight of Weight: 261 lb 6.4 oz (119 kg) , resulting in a BMI of Body mass index is 48.59 kg/m .. The patient is scheduled to undergo weight loss surgery to treat the following comorbid conditions that are directly associated with or indirectly associated with obesity: Past Medical History: Diagnosis Date Asthma Back pain COVID-19 vaccine series not completed Fatigue History of prediabetes Hypertension Joint pain Melanoma (HCC) Palpitations Prediabetes SOB (shortness of breath) on exertion She attended the weight loss surgery seminar prior to their initial surgical evaluation, and attended pre-op class on . The patient is scheduled for Laparoscopic Sleeve Gastrectomy and Laparoscopic Liver Biopsy. She is here today to review the details of surgery prior to their date of surgery: The patient acknowledges and understands the risks, benefits, and options we have discussed, as outlined in the Additional Informed Consent for this procedure. Patient also understands the importanceof pre and post-operative recommendations, including the Optifast diet and regular post-operative follow up care. The importance of ambulation and incentive spirometry was also discussed. All questions of this patient and any family members present have been answered to their satisfaction. Review of Systems Constitutional: Negative for fatigue and fever. HENT: Negative for congestion, rhinorrhea and trouble swallowing. Respiratory: Negative for cough, chest tightness and shortness of breath. Cardiovascular: Negative for chest pain, palpitations and leg swelling. Gastrointestinal: Negative for abdominal distention, abdominal pain, blood in stool, constipation, diarrhea and nausea. Genitourinary: Negative for dysuria, flank pain, frequency and urgency. Musculoskeletal: Negative for arthralgias, back pain and myalgias. Skin: Negative for color change and rash. Neurological: Negative for light-headedness and headaches. Psychiatric/Behavioral: Negative for dysphoric mood. The patient is not nervous/anxious. Physical Examination: BP 134/82 Pulse 105 Temp 36.6 C (97.8 F) Resp 18 Ht 5' 1.5 (1.562 m) Wt 261 lb 6.4 oz (119 kg) BMI 48.59 kg/m General: This patient is awake, alert, and oriented, and is in no apparent distress. Cardiac: Regular rate and rhythm without evidence of murmur. Respiratory: Clear to auscultation bilaterally. Abdomen: Obese, soft, non-tender, non-distended without masses/ No evidence of abdominal hernia / Incisions consistent with previous surgeries. Head and Neck: Obese, normocephalic and atraumatic/soft and supple, no lymphadenopathy or obvious bruits. Extremities: No cyanosis, clubbing or edema/ No calf tenderness/No restrictions of movement, is ambulatory without assistance. Neurological: Intact x 4 extremities, no focal deficits notes. Skin: No rashes or lesions noted Surgical History: Past Surgical History: Procedure Laterality Date EXTREMITY SURGERY 1994 OTHER SURGICAL HISTORY 1997 rt arm melanoma Recommendations: We spent a great deal of time discussing the risks and benefits of Laparoscopic Sleeve Gastrectomy and Laparoscopic Liver Biopsy, including but not limited to injury to intra-abdominal organs, breakdown of the gastric staple line, the need for re-operative therapy, prolonged hospitalization, mechanical ventilation, and . We discussed the possibility of bleeding, the need for blood transfusions, blood clots, hospital-acquired and intra-abdominal infection, anastomotic stricture, and worsening GERD. And we discussed the need for post- operative visit compliance, behavior modifications and diet changes, protein and vitamin supplementation, as well as routine scheduled and dedicated exercise. We discussed the potential weight loss benefit to approximately 60-70% of her excess body weight at 12-18 months post-op, as well as the possibility of insufficient weight loss or weight gain after2 years post-operative time. Upon completion of all required pre-operative testing we will submit for insurance pre-authorization. The following was discussed with the patient: I have recommended proceeding with the evaluation and work-up for the primary procedure as outlinedbelow: Dr. Elder PATIENT SUMMARY Sloane Rinaldi 72 y.o. female with Body mass index is 48.44 kg/m . Laparoscopic Sleeve Gastrectomy and Laparoscopic Liver Biopsy DM[] HTN[x] VINAY[] GERD[] HL[] OA[] Date of Surgery: 05/14/2023 Bryan Barboza INITIAL TESTING RESULTS Labwork [x] CMP, TSH, Fasting Lipid Profile, Mg, Zinc, Vit B1 (whole blood), Vit B12, 25-OH Vit D, Fe, Ferritin, Folate 02/17/23 tsh ok Tobacco [] Serum Nicotine / Cotinine [] Negative [] Positive PLEASE ADD SERUM NICOTINE/COTININE WITH INITIAL LABS ON ALL LRYGB PROCEDURES EGD [x] Dx: [] GERD [x] Dyspepsia [] Other 04/11/23 Pathology [x] H. pylori [x] Negative [] Positive UGI [x] [] not ordered 02/24/23 IMPRESSION: Questionable small gastric polyp or ulceration. Tertiary waves without dysmotility. Small hiatal hernia without gastroesophageal reflux. Large diverticulum of the proximal duodenum. (EGD ORDERED) US Abdomen [] [x] not ordered VINAY eval [] [] On CPAP / Obtain settings Hematology [] [] Hypercoagulation panel Toxicology [] [] Urine drug screen [] EtOH screen Addtional [x] [x] Hgb A1c 02/17/23 5.7 INITIAL CONSULTATIONS CLEARANCE / MANAGEMENT Psychology [x] Dr. Cancino Initial 03.07.2023; CLEARED 04.25.2023 Dietitian [x] Ana Valentin, MS, RD, CSSD, LD Cleared 01/10/2023 Cardiology [x] Dr. Baer CLEARED 03/24/23 Pulmonary [x] Dr. viveros Cleared 04/28/23 Others [] []Heme/Onc []Psychiatry []Pain mgmt PSD [x] Physician supervised diet: []None [x]3 mos []6 mos Preop diet [x] Preop low calorie diet: []None []1 wk [x]2 wks FINAL PRE-OP TESTING RESULTS Labwork [x] [x]Pre-op CBC [x]BMP []Serum Nicotine / Cotinine EKG [x] CXR [x] POST-OP MEDICATIONS Ulcer Ppx [] Omeprazole 20 mg PO []QD []BID Gallstone Ppx [] Ursodiol 300 mg []BID DVT Ppx [x] DVT prophylaxis per final preop visit estimated risk Estimated calculated risk: 0.31% COMPLETE FILE TO MEDICARE REVIEW : 04/28/23 Schedule final pre-operative office visit with surgeon, pre-operative education class, and pre-operative exercise class prior to date of surgery DVT PPX Risk Factors [] Male [x] Age >= 60 years [] BMI >= 50 kg/m^2 [] CHF [] Dyspnea at Rest [] Paraplegia [x] Non-Gastric Band Surgery [] Anticipate Operative Time > 3 hours [] Anticipate Length of Stay >3 days Automatic 4 Weeks of Therapy [] Congenital or Acquired Hypercoagulable Conditions (Factor V Leiden, Prothrombin) [] Past History of DVT or PE [] Significant Chronic Venous Insufficiency Calculated Risk Score: 0.31% No Lovenox indicated Risk % Weeks </> BMI 50 SQ Dose [x] Moderate <0.4% 0 None [] High Risk 0.4% - 1% 2 [] 40 mg Lovenox BID [] 60 mg Lovenox BID [] Very High Risk >1% 4 [] 40 mg Lovenox BID [] 60 mg Lovenox BID Lovenox not indicated Prescriptions were provided for Actigall post-operatively Prescriptions were provided for Gastric Ulcer Prophylaxis post-operatively. Pre-op diet- 2 weeks- begin on 04/30/23 To hold vitamins x10 days. I spent over 51% of the total visit time of 25 minutes counseling (or coordinating care) and provided discussion regarding risks, benefits, and options referenced above, as well as pre- and post-operative program recommendations and requirements. * Heidy Graves LPN - 04/30/2023 2:15 PM EST [facility] SURGICAL WEIGHT LOSS MANAGEMENT PROGRAM Rooming note: FINAL PRE-OP VISIT Patient: Sloane Rinaldi Date of : 1950 Service Date: 04/30/2023 This patient is accompanied by unaccompanied for the evaluation today Patient is here today for their final pre-operative visit with surgeon prior to undergoing surgicalweight loss intervention. Patient has the following question(s): none Weight Metrics: Measurements Weight: 261 lb 6.4 oz (119 kg) Height: 5' 1.5 (156.2 cm) BMI (Calculated): 48.7 Percent Excess Weight Loss: 0 Percent Weight Change Since Preop (kg): 118.57 kg Initial Excess Weight (kg): -48.76 kg IBW in kg (Bariatric): 48.76 kg IBW in lb (Bariatric): 107.5 lb Weight Change Since Last Visit: 118.57 kg Percent of IBW: 243.16 Percent EBW (kg): 69.78 kg EBW (lb): 153.9 lb Today's weight has increased from the last visit Falls Risk Assessment Patient does take medications which affect BP or mental status Patient does not have newly prescribed or changed dosage of medications within past 30 days which affect BP or mental status Patient has not fallen in the past 2 months Patient does not demonstrate unsteady gait Patient uses the following ambulatory assistive devices: none Patient states the presence of the following traits which increases risk of fall: none Patient is low risk for falls. If high or moderate risk, patient instructed not to ambulate independently in the Center, and cord for call light placed within reach of patient. Patient has not had a time when it was difficult for an IV to be placed. Patient is not on home O2 Patient has not has a time when it was difficult to intubate them Patient does not have a CPAP/BiPAP machine. If patient DOES have CPAP/BiPAP: [] CPAP [] BiPAP Settings are cm H2O PAP and settings entered into the Medication List Completed by: Heidy Graves LPN documented in this [facility] [place]01-24-2024 Telephone encounter Note* Telephone Encounter - Pretty Rosa RN - 04/30/2023 7:17 AM EST DVT PPX Risk Factors [] Male [x] Age >= 60 years [] BMI >= 50 kg/m^2 [] CHF [] Dyspnea at Rest [] Paraplegia [x] Non-Gastric Band Surgery [] Anticipate Operative Time > 3 hours [] Anticipate Length of Stay >3 days Automatic 4 Weeks of Therapy [] Congenital or Acquired Hypercoagulable Conditions (Factor V Leiden, Prothrombin) [] Past History of DVT or PE [] Significant Chronic Venous Insufficiency Calculated Risk Score: 0.31% No Lovenox indicated Risk % Weeks </> BMI 50 SQ Dose [x] Moderate <0.4% 0 None [] High Risk 0.4% - 1% 2 [] 40 mg Lovenox BID [] 60 mg Lovenox BID [] Very High Risk >1% 4 [] 40 mg Lovenox BID [] 60 mg Lovenox BID [place] [id number] Telephone encounter Note* Telephone Encounter - HUSSAIN Perry CNP - 04/28/2023 8:54 AM EST Upon review of chart for Medicare, patient has met with Obesity Medicine Specialist, four months insuccession. Patient has demonstrated behavior and nutrition patterns, as counseled. OK to proceed with surgery scheduling. [facility] Phone: [phone] 850-315301-22-2024 Miscellaneous Notes* Telephone Encounter - HUSSAIN Perry CNP - 04/28/2023 8:54 AM EST Upon review of chart for Medicare, patient has met with Obesity Medicine Specialist, four months insuccession. Patient has demonstrated behavior and nutrition patterns, as counseled. OK to proceed with surgery scheduling. * Telephone Encounter - Concetta Holt - 04/28/2023 8:20 AM EST MEDICARE PATIENT APPEARS COMPLETE. PLACING FILE IN TRA LUA, MAILBOX FOR REVIEW. * Telephone Encounter - Tanika Ragsdale NP - 02/25/2023 2:53 PM EST IMPRESSION: Questionable small gastric polyp or ulceration. Tertiary waves without dysmotility. Small hiatal hernia without gastroesophageal reflux. Large diverticulum of the proximal duodenum. Called patient to review findings. Denies any epigastric pain or ulcer risk factors. Will order EGDfor further evaluation of findings. Pt agreeable to plan and agrees to reach out if pain arises. * Telephone Encounter - Petra Cowart - 02/24/2023 10:28 AM EST This patient has been rescheduled with Dr Cody in [place] on 03/20, and notified. * Telephone Encounter - Concetta Holt - 02/21/2023 7:49 AM EST Please call patient to schedule her d/e final. Thanks Looks like she sees Glo hendrickson Axson * Addendum Note - Katharine Story - 02/17/2023 9:03 AM ESTAddended by: KATHARINE STORY on: 02/17/2023 09:03 AM Modules accepted: Orders * Telephone Encounter - Heidy Graves LPN - 12/30/2022 2:44 PM EDT Pre op cheklist scanned to media, orders mailed. * Addendum Note - Tanika Ragsadle NP - 12/25/2022 1:57 PM EDTAddended by: TANIKA RAGSDALE on: 12/25/2022 01:57 PM Modules accepted: Orders * Telephone Encounter - Tanika Ragsdale NP - 12/25/2022 1:57 PM EDT Orders signed. Checklist completed. * Telephone Encounter - Tanika Ragsdale NP - 12/25/2022 1:52 PM EDT I have recommended proceeding with the evaluation and work-up for the primary procedure as outlinedbelow: Dr. Elder PATIENT SUMMARY Sloane Rinaldi 72 y.o. female with Body mass index is 48.44 kg/m . Laparoscopic Sleeve Gastrectomy and Laparoscopic Liver Biopsy DM[] HTN[x] VINAY[] GERD[] HL[] OA[x] Date of Surgery: TBD Bryan Barboza INITIAL TESTING RESULTS Labwork [x] CMP, TSH, Fasting Lipid Profile, Mg, Zinc, Vit B1 (whole blood), Vit B12, 25-OH Vit D, Fe, Ferritin, Folate Tobacco [] Serum Nicotine / Cotinine [] Negative [] Positive PLEASE ADD SERUM NICOTINE/COTININE WITH INITIAL LABS ON ALL LRYGB PROCEDURES EGD [] Dx: [] GERD [x] Dyspepsia [] Other Pathology [x] H. pylori [] Negative [] Positive UGI [x] [] not ordered US Abdomen [] [] not ordered VINAY eval [] [] On CPAP / Obtain settings Hematology [] [] Hypercoagulation panel Toxicology [] [] Urine drug screen [] EtOH screen Addtional [x] [x] Hgb A1c INITIAL CONSULTATIONS CLEARANCE / MANAGEMENT Psychology [x] Dietitityrone [x] Cardiology [x] Dr. Garner Box Turner during recent hospitalization in October Pulmonary [x] Dr. Others [] []Heme/Onc []Psychiatry []Pain mgmt PSD [x] Physician supervised diet: []None [x]3 mos []6 mos Preop diet [x] Preop low calorie diet: []None []1 wk [x]2 wks FINAL PRE-OP TESTING RESULTS Labwork [x] [x]Pre-op CBC [x]BMP []Serum Nicotine / Cotinine EKG [x] CXR [x] POST-OP MEDICATIONS Ulcer Ppx [] Omeprazole 20 mg PO []QD []BID Gallstone Ppx [] Ursodiol 300 mg []BID DVT Ppx [x] DVT prophylaxis per final preop visit estimated risk Estimated calculated risk: % Schedule final pre-operative office visit with surgeon, pre-operative education class, and pre-operative exercise class prior to date of surgery ATTESTATION I reviewed with the patient the details of the proposed operation. The risks benefits and options were discussed. Risks included but were not limited to bleeding, infection, damage to other surrounding organs, cardio-pulmonary complications related to anesthesia, conversion from laparoscopic to andopen procedure, the need for reoperative or endoscopic therapy, the potential for prolonged mechanical ventilation, and . All questions were fully answered to the patient's satisfaction and theywish to proceed with surgical intervention. Greater than 51% of the 45 minute visit was spent as face to face encounter, counseling the patientand discussing the risks,benefits and options of surgery as well as the perioperative care plan. The patient was seen and examined independently and relevant data including a full chart rreview was performed by myself. Patient Care Team: Bryan Barboza as PCP - General (Family Medicine) Josef Elder MD as Surgeon (General Surgery) * Telephone Encounter - Claudia Jenkins - 12/24/2022 12:24 PM EDT Initial New [facility] surgical patient Navigation & Financial Counseling Discussion Patient Communication: In office SURGEON: [] ANNALISE [] AD [] MP [x] TB [] LM PROCEDURE: [] LRYGB [] LSG [] СВЕТЛАНА-S [] СВЕТЛАНА [] UNDECIDED [] REV: SPECIFY: Confirmed pt wants to continue with surgical program/plan [] YES [] NO (complete program withdrawalnote/process) CO-MORBIDS: [] NONE [] DM []HTN [] VINAY []GERD [] OTH: PRIVATE PAY: [] NO []YES DATE OF INITIAL BENEFITS VERIFICATION: TRANSFER FU: [] YES [] NO PRIMARY INSURANCE: Payor: MEDICARE / Plan: MEDICARE PART A AND B / Product Type: Medicare / BENEFIT ON PLAN: [] NO [] YES BENEFIT MAX: [] NO [] YES -- BENEFIT MAX: $ EMPLOYER: DIET AND EXERCISE (DE) REQUIREMENT PRIMARY [] NONE [x]3M [] 6M []9M [] Medicare 4 Months [] SPR (3M) []OTHER: SECONDARY INSURANCE: BENEFIT ON PLAN: [] NO [] YES BENEFIT MAX: [] NO [] YES -- BENEFIT MAX: $ AUTH REQUIRED FROM SECONDARY [] NO [] YES DIET AND EXERCISE REQUIREMENT SECONDARY [] NONE []3M [] 6M [] Medicare 4 months [] SPR (3M) []OTHER: ___ [x] Discussed with patient: Financial cost overview (document signed and pt given copy at new pt consult visit with surgeon), Initial appointments: Bariatric Nutrition Assessment (BNA) & Diet and Exercise (DE) Patient to look for yellow envelope in mail. This yellow envelope will contain orders for labs, testing and required clearances. Pt encouraged to complete early in program to prevent delays. Encourage blood work to be draw by 1st DE appointment. [x] Reviewed OOP cost, including: [] Optifast cost of approximately $130-140/week x weeks immediately prior to surgery - used to induce rapid weight loss which results in decrease in size of liver and therefore facilitates laparoscopically surgery approach. [x] Overview of inpatient admission benefits - estimated inpatient co-pays, deductibles and/or co-insurance - Estimated OOP costs form reviewed with patient, and copy given to patient at new pt visit. [x] Reviewed next steps with patient: 1) Scheduled at new pt surgeon visit: Fire Protection Designer (RD) for a Nutrition Assessment (BNA) and Pre-operative Diet and Exercise (DE)appointment #1. [x] Patient reminded to arrive 15 minutes early for check in. Late arrivals may need to be rescheduled. 2) Schedule: Diet and Exercise Apt #2 only scheduled after initial BNA and DE completed, 3) Behavioral Health apt scheduled after DE started. Reviewed rational and goal of Behavioral Health appointments. 4) [x] Reinforced need to cancel any WMI appointments 48 hours in advance. Cautioned NS/Same day cancellations may result in delay in program or program completion hold. Noted: DE series needs to be a monthly series or insurance company may require repeat of the entire series. 5) [x] Smoker/tobacco products including vaping: reviewed need for cessation before surgery clearance and life long abstinence after surgery for best outcomes. Patient navigation to surgery: [x] Explained to patient that average time from initial consult to date of surgery can be 6-8 months. - Process can take longer if there are cancelled appointments, delays in testing and/or additional clearances that needs to be completed. - Reviewed importance of patient active engagement in making and keeping appointments to keep the process moving. - Reinforced need to cancel appointments at least 48 hours in advance. Reviewed that instances of No Shows and Same Day Appointment Cancellations may result in program/surgery delay or hold. [x] Patient advised of importance of having voicemail and MyChart for office communications and lab/testing results before and after surgery. documented in this [facility] [place]01-22-2024 Telephone encounter Note* Telephone Encounter - Concetta Holt - 04/28/2023 8:20 AM EST MEDICARE PATIENT APPEARS COMPLETE. PLACING FILE IN NATUROPATHIC PHYSICIAN, TRA, MAILBOX FOR REVIEW. [facility] [id number] History and physical note* Josef Elder MD - 04/11/2023 9:43 AM EST Images from the original note were not included. Endoscopy History and Physical HPI: Sloane Rinaldi is a 72 y.o. female who presents with dyspepsia and is undergoing preoperative workupfor weight reduction surgery. BMI is Body mass index is 47.55 kg/m . PMHx: Past Medical History: Diagnosis Date Asthma Back pain Fatigue History of prediabetes Hypertension Joint pain Melanoma (HCC) Palpitations Prediabetes SOB (shortness of breath) on exertion PSHx: Past Surgical History: Procedure Laterality Date EXTREMITY SURGERY 1994 OTHER SURGICAL HISTORY 1997 rt arm melanoma PFMHx: Family History Problem Relation Name Age of Onset Asthma Father Cancer Sister Hypertension Brother Heart disease Brother Diabetes Brother Obesity Brother ALL: Allergies Allergen Reactions Sulfa Antibiotics Hives Sulfamethoxazole-Trimethoprim Hives MEDS: @MEDCMED@ SOCIAL Hx: Social History Socioeconomic History Marital status: Spouse name: Not on file Number of children: Not on file Years of education: Not on file Highest education level: Not on file Occupational History Not on file Tobacco Use Smoking status: Never Smokeless tobacco: Never Vaping Use Vaping Use: Never used Substance and Sexual Activity Alcohol use: Yes Comment: rarely Drug use: Never Sexual activity: Not Currently Other Topics Concern Not on file Social History Narrative Not on file Social Determinants of Health Financial Resource Strain: Not on file Food Insecurity: Not on file Transportation Needs: Not on file Physical Activity: Not on file Stress: Not on file Social Connections: Not on file Intimate Partner Violence: Not At Risk (04/11/2023) Humiliation, Afraid, Rape, and Kick questionnaire Fear of Current or Ex-Partner: No Emotionally Abused: No Physically Abused: No Sexually Abused: No Housing Stability: Not on file Review of Systems: I personally reviewed the patient intake form with the patient. The ROS is negative except for whatis listed in HPI. Physical Examination: BP (!) 155/125 Pulse 95 Temp 36.1 C (97 F) (Temporal) Resp 16 Ht 5' 2 (1.575 m) Wt 260 lb (118 kg) SpO2 95% BMI 47.55 kg/m She stands @FLOWAMB(11)@ tall with a weight of @FLOWAMB(14)@ , resulting in a BMI of Body mass index is 47.55 kg/m .. General: The patient is awake, alert, and oriented, and is in no apparent distress. Normal affect. Head and Neck: Normocephalic and atraumatic. Supple, no thyromegaly. Cardiac: Regular rate and rhythm without evidence of murmur. No obvious carotid bruits. Respiratory: Clear to auscultation bilaterally. Good inspiratory effort. Abdomen: Soft, non tender, non distended Extremities: Ambulatory without assistance. Neurological: Intact sensation in 4 extremities, no focal deficits notes. Skin: No rashes or lesions noted. Warm and dry. Rectal: Not done. Hernia: no hernias found on exam Assessment and Plan Active Problems: There are no active Hospital Problems. Plan: 72 y.o. female who presents with dyspepsia Morbid obesity with Body mass index is 47.55 kg/m .. EGD with biopsy Patient counseled on risks, benefits, and alternatives of treatment plan at length. Patient states an understanding and willingness to proceed with plan. [employer] Work Phone: 1(508) 349-308101-05-2024 History and physical note* Josef Elder MD - 04/11/2023 9:43 AM EST Images from the original note were not included. Endoscopy History and Physical HPI: Sloane Rinaldi is a 72 y.o. female who presents with dyspepsia and is undergoing preoperative workupfor weight reduction surgery. BMI is Body mass index is 47.55 kg/m . PMHx: Past Medical History: Diagnosis Date Asthma Back pain Fatigue History of prediabetes Hypertension Joint pain Melanoma (HCC) Palpitations Prediabetes SOB (shortness of breath) on exertion PSHx: Past Surgical History: Procedure Laterality Date EXTREMITY SURGERY 1994 OTHER SURGICAL HISTORY 1997 rt arm melanoma PFMHx: Family History Problem Relation Name Age of Onset Asthma Father Cancer Sister Hypertension Brother Heart disease Brother Diabetes Brother Obesity Brother ALL: Allergies Allergen Reactions Sulfa Antibiotics Hives Sulfamethoxazole-Trimethoprim Hives MEDS: @MEDCMED@ SOCIAL Hx: Social History Socioeconomic History Marital status: Spouse name: Not on file Number of children: Not on file Years of education: Not on file Highest education level: Not on file Occupational History Not on file Tobacco Use Smoking status: Never Smokeless tobacco: Never Vaping Use Vaping Use: Never used Substance and Sexual Activity Alcohol use: Yes Comment: rarely Drug use: Never Sexual activity: Not Currently Other Topics Concern Not on file Social History Narrative Not on file Social Determinants of Health Financial Resource Strain: Not on file Food Insecurity: Not on file Transportation Needs: Not on file Physical Activity: Not on file Stress: Not on file Social Connections: Not on file Intimate Partner Violence: Not At Risk (04/11/2023) Humiliation, Afraid, Rape, and Kick questionnaire Fear of Current or Ex-Partner: No Emotionally Abused: No Physically Abused: No Sexually Abused: No Housing Stability: Not on file Review of Systems: I personally reviewed the patient intake form with the patient. The ROS is negative except for whatis listed in HPI. Physical Examination: BP (!) 155/125 Pulse 95 Temp 36.1 C (97 F) (Temporal) Resp 16 Ht 5' 2 (1.575 m) Wt 260 lb (118 kg) SpO2 95% BMI 47.55 kg/m She stands @FLOWAMB(11)@ tall with a weight of @FLOWAMB(14)@ , resulting in a BMI of Body mass index is 47.55 kg/m .. General: The patient is awake, alert, and oriented, and is in no apparent distress. Normal affect. Head and Neck: Normocephalic and atraumatic. Supple, no thyromegaly. Cardiac: Regular rate and rhythm without evidence of murmur. No obvious carotid bruits. Respiratory: Clear to auscultation bilaterally. Good inspiratory effort. Abdomen: Soft, non tender, non distended Extremities: Ambulatory without assistance. Neurological: Intact sensation in 4 extremities, no focal deficits notes. Skin: No rashes or lesions noted. Warm and dry. Rectal: Not done. Hernia: no hernias found on exam Assessment and Plan Active Problems: There are no active Hospital Problems. Plan: 72 y.o. female who presents with dyspepsia Morbid obesity with Body mass index is 47.55 kg/m .. EGD with biopsy Patient counseled on risks, benefits, and alternatives of treatment plan at length. Patient states an understanding and willingness to proceed with plan. documented in this [facility] [place]01-05-2024 Note* Op Note - Josef Elder MD - 04/11/2023 9:42 AM EST [facility] Name: Sloane Rinaldi Procedure Date: 04/11/2023 9:42 AM Gender: Female Date of : 1950 Age: 72 Admit Type: Outpatient Note Status: Finalized Endoscopist: Josef Elder MD, [id number] Procedure: Upper GI endoscopy Indications: Functional Dyspepsia Findings: Mild inflammation was found in the gastric antrum. Biopsies were taken with a cold forceps for Helicobacter pylori testing. A small hiatal hernia was present. Multiple 4 mm pedunculated polyps with no bleeding and no stigmata of recent bleeding were found in the stomach. The polyp was removed with a cold biopsy forceps. Resection and retrieval were complete. Impression: - Gastritis. Biopsied. - Small hiatal hernia. - Multiple gastric polyps. Resected and retrieved. Recommendation: - Patient has a contact number available for emergencies. The signs and symptoms of potential delayed complications were discussed with the patient. Return to normal activities tomorrow. Written discharge instructions were provided to the patient. - Resume previous diet. - Continue present medications. - Await pathology results. Referring MD: Bryan Barboza Medicines: Monitored Anesthesia Care Procedure: Pre-Anesthesia Assessment: - Prior to the procedure, a History and Physical was performed, and patient medications and allergies were reviewed. The patient's tolerance of previous anesthesia was also reviewed. The risks and benefits of the procedure and the sedation options and risks were discussed with the patient. All questions were answered, and informed consent was obtained. Prior Anticoagulants: The patient has taken no anticoagulant or antiplatelet agents. ASA Grade Assessment: per anesthesia endoscopic documentation. After reviewing the risks and benefits, the patient was deemed in satisfactory condition to undergo the procedure. - The anesthesia plan was to use monitored anesthesia care (MAC). After obtaining informed consent, the endoscope was passed under direct vision. Throughout the procedure, the patient's blood pressure, pulse, and oxygen saturations were monitored continuously. The Endoscope was introduced through the mouth, and advanced to the second part of duodenum. The upper GI endoscopy was accomplished without difficulty. The patient tolerated the procedure well. Complications: No immediate complications. Procedure Code(s): --- Professional --- 38326, Esophagogastroduodenoscopy, flexible, transoral; with biopsy, single or multiple --- Technical --- 60415, Esophagogastroduodenoscopy, flexible, transoral; with biopsy, single or multiple Diagnosis Code(s): --- Professional --- K29.70, Gastritis, unspecified, without bleeding K44.9, Diaphragmatic hernia without obstruction or gangrene K31.7, Polyp of stomach and duodenum K30, Functional dyspepsia --- Technical --- K29.70, Gastritis, unspecified, without bleeding K44.9, Diaphragmatic hernia without obstruction or gangrene K31.7, Polyp of stomach and duodenum K30, Functional dyspepsia CPT copyright 2021 [employer]. All rights reserved. The codes documented in this report are preliminary and upon front edger review may be revised to meet current compliance requirements. Attending Participation: I personally performed the entire procedure. Josef Elder MD. Josef Elder MD 04/11/2023 10:52:57 AM This report has been signed electronically. Number of Addenda: 0 Note Initiated On: 04/11/2023 9:42 AM [id number] Note* Op Note - Josef Elder MD - 04/11/2023 9:42 AM EST [facility] Name: Sloane Rinaldi Procedure Date: 04/11/2023 9:42 AM Gender: Female Date of : 1950 Age: 72 Admit Type: Outpatient Note Status: Finalized Endoscopist: Josef Elder MD, [id number] Procedure: Upper GI endoscopy Indications: Functional Dyspepsia Findings: Mild inflammation was found in the gastric antrum. Biopsies were taken with a cold forceps for Helicobacter pylori testing. A small hiatal hernia was present. Multiple 4 mm pedunculated polyps with no bleeding and no stigmata of recent bleeding were found in the stomach. The polyp was removed with a cold biopsy forceps. Resection and retrieval were complete. Impression: - Gastritis. Biopsied. - Small hiatal hernia. - Multiple gastric polyps. Resected and retrieved. Recommendation: - Patient has a contact number available for emergencies. The signs and symptoms of potential delayed complications were discussed with the patient. Return to normal activities tomorrow. Written discharge instructions were provided to the patient. - Resume previous diet. - Continue present medications. - Await pathology results. Referring MD: Bryan Barboza Medicines: Monitored Anesthesia Care Procedure: Pre-Anesthesia Assessment: - Prior to the procedure, a History and Physical was performed, and patient medications and allergies were reviewed. The patient's tolerance of previous anesthesia was also reviewed. The risks and benefits of the procedure and the sedation options and risks were discussed with the patient. All questions were answered, and informed consent was obtained. Prior Anticoagulants: The patient has taken no anticoagulant or antiplatelet agents. ASA Grade Assessment: per anesthesia endoscopic documentation. After reviewing the risks and benefits, the patient was deemed in satisfactory condition to undergo the procedure. - The anesthesia plan was to use monitored anesthesia care (MAC). After obtaining informed consent, the endoscope was passed under direct vision. Throughout the procedure, the patient's blood pressure, pulse, and oxygen saturations were monitored continuously. The Endoscope was introduced through the mouth, and advanced to the second part of duodenum. The upper GI endoscopy was accomplished without difficulty. The patient tolerated the procedure well. Complications: No immediate complications. Procedure Code(s): --- Professional --- 56884, Esophagogastroduodenoscopy, flexible, transoral; with biopsy, single or multiple --- Technical --- 71594, Esophagogastroduodenoscopy, flexible, transoral; with biopsy, single or multiple Diagnosis Code(s): --- Professional --- K29.70, Gastritis, unspecified, without bleeding K44.9, Diaphragmatic hernia without obstruction or gangrene K31.7, Polyp of stomach and duodenum K30, Functional dyspepsia --- Technical --- K29.70, Gastritis, unspecified, without bleeding K44.9, Diaphragmatic hernia without obstruction or gangrene K31.7, Polyp of stomach and duodenum K30, Functional dyspepsia CPT copyright 2021 [employer]. All rights reserved. The codes documented in this report are preliminary and upon front edger review may be revised to meet current compliance requirements. Attending Participation: I personally performed the entire procedure. Josef Elder MD. Josef Elder MD 04/11/2023 10:52:57 AM This report has been signed electronically. Number of Addenda: 0 Note Initiated On: 04/11/2023 9:42 AM [facility] [id number] Miscellaneous Notes* Op Note - Josef Elder MD - 04/11/2023 9:42 AM EST [facility] Patient Name: Sloane Rinaldi Procedure Date: 04/11/2023 9:42 AM Gender: Female Date of : 1950 Age: 72 Admit Type: Outpatient Note Status: Finalized Endoscopist: Josef Elder MD, [id number] Procedure: Upper GI endoscopy Indications: Functional Dyspepsia Findings: Mild inflammation was found in the gastric antrum. Biopsies were taken with a cold forceps for Helicobacter pylori testing. A small hiatal hernia was present. Multiple 4 mm pedunculated polyps with no bleeding and no stigmata of recent bleeding were found in the stomach. The polyp was removed with a cold biopsy forceps. Resection and retrieval were complete. Impression: - Gastritis. Biopsied. - Small hiatal hernia. - Multiple gastric polyps. Resected and retrieved. Recommendation: - Patient has a contact number available for emergencies. The signs and symptoms of potential delayed complications were discussed with the patient. Return to normal activities tomorrow. Written discharge instructions were provided to the patient. - Resume previous diet. - Continue present medications. - Await pathology results. Referring MD: Bryan Barboza Medicines: Monitored Anesthesia Care Procedure: Pre-Anesthesia Assessment: - Prior to the procedure, a History and Physical was performed, and patient medications and allergies were reviewed. The patient's tolerance of previous anesthesia was also reviewed. The risks and benefits of the procedure and the sedation options and risks were discussed with the patient. All questions were answered, and informed consent was obtained. Prior Anticoagulants: The patient has taken no anticoagulant or antiplatelet agents. ASA Grade Assessment: per anesthesia endoscopic documentation. After reviewing the risks and benefits, the patient was deemed in satisfactory condition to undergo the procedure. - The anesthesia plan was to use monitored anesthesia care (MAC). After obtaining informed consent, the endoscope was passed under direct vision. Throughout the procedure, the patient's blood pressure, pulse, and oxygen saturations were monitored continuously. The Endoscope was introduced through the mouth, and advanced to the second part of duodenum. The upper GI endoscopy was accomplished without difficulty. The patient tolerated the procedure well. Complications: No immediate complications. Procedure Code(s): --- Professional --- 22062, Esophagogastroduodenoscopy, flexible, transoral; with biopsy, single or multiple --- Technical --- 78445, Esophagogastroduodenoscopy, flexible, transoral; with biopsy, single or multiple Diagnosis Code(s): --- Professional --- K29.70, Gastritis, unspecified, without bleeding K44.9, Diaphragmatic hernia without obstruction or gangrene K31.7, Polyp of stomach and duodenum K30, Functional dyspepsia --- Technical --- K29.70, Gastritis, unspecified, without bleeding K44.9, Diaphragmatic hernia without obstruction or gangrene K31.7, Polyp of stomach and duodenum K30, Functional dyspepsia CPT copyright 2021 [employer]. All rights reserved. The codes documented in this report are preliminary and upon front edger review may be revised to meet current compliance requirements. Attending Participation: I personally performed the entire procedure. Josef Elder MD. Josef Elder MD 04/11/2023 10:52:57 AM This report has been signed electronically. Number of Addenda: 0 Note Initiated On: 04/11/2023 9:42 AM documented in this [facility] [place]12-20-2023 Telephone encounter Note* Telephone Encounter - Mateo Figueroa - 03/26/2023 2:43 PM EST Name of caller: Sloane Contact phone number: [phone] Relationship to Patient: patient Provider: LINDA Viveros Practice: [facility] [place] Pulmonary Department: Chief Complaint/Reason for Call: Pt called to discuss results from her Overnight Oximetry Report. Please advise. Best time of day caller can be reached: any Patient advised that office/PCP has 24-48 business hours to return their call: Yes [facility] [id number] Miscellaneous Notes* Telephone Encounter - Mateo Figueroa - 03/26/2023 2:43 PM EST Name of caller: Sloane Contact phone number: [phone] Relationship to Patient: patient Provider: LINDA Viveros Practice: [facility] [place] Pulmonary Department: Chief Complaint/Reason for Call: Pt called to discuss results from her Overnight Oximetry Report. Please advise. Best time of day caller can be reached: any Patient advised that office/PCP has 24-48 business hours to return their call: Yes documented in this [facility] [id number] History of Present illness Narrative* Keyur Casiano MD - 03/24/2023 2:00 PM EST [facility] Cardiology [facility] [address] [facility] [address] Dept: [phone] Dept Visit type: New : 1950 Chief Complaint: Chief Complaint Patient presents with Pre-op Exam History of Present Illness: Sloane Rinaldi is a 72 y.o. female with hx of HTN, Prediabetes (HbA1c of 5.7), mild intermittent Asthma presenting for bariatric clearance. She reports she lives with her in a ranch house. She reports she is washes dishes and does simple chores. She reports that she also goes to yazdanism and out on the weekend with . She denies any exertional chest pain, shortness of breath or palpitations during these activities. She denies any family hx of premature CAD. She reports she [facility] and reports that is was normal and she had heart burn sx at the time that have not recurred. Past Medical History: Past Medical History: Diagnosis Date Asthma Back pain Fatigue History of prediabetes Hypertension Joint pain Melanoma (HCC) Palpitations Prediabetes SOB (shortness of breath) on exertion Past Surgical History Past Surgical History: Procedure Laterality Date EXTREMITY SURGERY 1994 OTHER SURGICAL HISTORY 1997 rt arm melanoma Family History Family History Problem Relation Name Age of Onset Asthma Father Cancer Sister Hypertension Brother Heart disease Brother Diabetes Brother Obesity Brother Social History Social History Tobacco Use Smoking status: Never Smokeless tobacco: Never Substance Use Topics Alcohol use: Yes Comment: rarely Drug use: Never Allergies: Allergies Allergen Reactions Sulfa Antibiotics Hives Sulfamethoxazole-Trimethoprim Hives Medications: Current Outpatient Medications: albuterol 108 (90 Base) MCG/ACT inhaler, Daily as needed., Disp: , Rfl: levothyroxine (Synthroid, Levoxyl) 100 MCG tablet, Take 100 mcg by mouth daily., Disp: , Rfl: losartan-hydroCHLOROthiazide (Hyzaar) 50-12.5 MG tablet, Take 1 tablet by mouth before bedtime., Disp: , Rfl: Multiple Vitamins-Iron (MULTIPLE VITAMIN/IRON PO), Take by mouth., Disp: , Rfl: VITAMIN D, CHOLECALCIFEROL, PO, Take 1,000 Int'l Units by mouth daily., Disp: , Rfl: Review of Systems: Review of Systems Constitutional: Negative for activity change, chills, diaphoresis, fatigue and fever. HENT: Negative for nosebleeds and trouble swallowing. Eyes: Negative for discharge and visual disturbance. Respiratory: Negative for apnea, cough, chest tightness, shortness of breath and wheezing. Cardiovascular: Negative for chest pain, palpitations and leg swelling. Gastrointestinal: Negative for abdominal distention, abdominal pain, blood in stool, diarrhea, nausea and vomiting. Endocrine: Negative for cold intolerance and heat intolerance. Genitourinary: Negative for hematuria. Musculoskeletal: Negative for gait problem and myalgias. Skin: Negative for color change and rash. Neurological: Negative for dizziness, seizures, syncope, facial asymmetry, speech difficulty, weakness, light-headedness, numbness and headaches. Hematological: Does not bruise/bleed easily. Psychiatric/Behavioral: Negative for dysphoric mood. Physical Examination: Vitals: Vitals: 03/24/23 1354 BP: 114/70 BP Location: Left arm Patient Position: Sitting BP Cuff Size: Adult Pulse: 87 Weight: 262 lb (119 kg) Height: 5' 2 (1.575 m) Body mass index is 47.92 kg/m . Physical Exam Constitutional: General: She is not in acute distress. HENT: Head: Normocephalic and atraumatic. Right Ear: External ear normal. Left Ear: External ear normal. Mouth/Throat: Mouth: Mucous membranes are moist. Eyes: General: No scleral icterus. Conjunctiva/sclera: Conjunctivae normal. Neck: Thyroid: No thyromegaly. Vascular: No carotid bruit or JVD. Cardiovascular: Rate and Rhythm: Regular rhythm. Chest Wall: PMI is not displaced. Heart sounds: No murmur heard. No S3 or S4 sounds. Pulmonary: Effort: Pulmonary effort is normal. Breath sounds: Normal breath sounds. No wheezing or rales. Abdominal: General: Bowel sounds are normal. There is no distension. Palpations: Abdomen is soft. Tenderness: There is no abdominal tenderness. Musculoskeletal: General: No swelling. Cervical back: Neck supple. Right lower leg: Edema present. Left lower leg: Edema present. Comments: Non pitting bilateral edema. Worse during the day Skin: General: Skin is warm and dry. Findings: No rash. Nails: There is no clubbing. Neurological: General: No focal deficit present. Mental Status: She is alert and oriented to person, place, and time. Gait: Gait is intact. Psychiatric: Mood and Affect: Mood normal. Thought Content: Thought content normal. Laboratory Tests: Lab Results Component Value Date WBC 6.5 02/17/2023 HGB 14.7 02/17/2023 HCT 43.4 02/17/2023 MCV 92.7 02/17/2023 PLT 267 02/17/2023 Lab Results Component Value Date GLUCOSE 153 (H) 02/17/2023 CALCIUM 9.4 02/17/2023 NA 140 02/17/2023 K 4.0 02/17/2023 CO2 24 02/17/2023 CL 108 (H) 02/17/2023 BUN 24 (H) 02/17/2023 CREATININE 0.83 02/17/2023 @LASTCMP@ Lab Results Component Value Date CHOL 201 (H) 02/17/2023 Lab Results Component Value Date TRIG 182 (H) 02/17/2023 Lab Results Component Value Date HDL 42 02/17/2023 Lab Results Component Value Date LDLCALC 123 (H) 02/17/2023 No results found for: BNP Cardiac Tests: ECG: RBBB Last Echo: No records Last stress test: No records Last cardiac catheterization: No records Assessment and Plan: 1. Preoperative clearance 2. Primary hypertension 3. Morbid obesity, unspecified obesity type (HCC) 4. Prediabetes Preop Clearance She is somewhat active. She does reach around 4 METS with her activities and denies any sx. RCRI of1. She also did have a stress rest recently as well that she reported was normal and we try to obtain those records. - She is low risk for cardiovascular events and can proceed with surgery without further cardiac testing. HTN HLD BP of 114/70, LDL of 123 and Chol/HDL ratio of 5. - On Hyzaar combo pill . Well controlled. - Her ASCVD risk is 11.7% which puts her at moderate risk for events. Discussed statin therapy withthe patient. She decided to wait after her surgery and check a lipid panel to decide about further statin therapy. Will forward this note to the PCP to address after her surgery. The 10-year ASCVD risk score (Janice DK, et al., 2019) is: 11.7% Values used to calculate the score: Age: 72 years Sex: Female Is Non- : No Diabetic: No Tobacco smoker: No Systolic Blood Pressure: 114 mmHg Is BP treated: Yes HDL Cholesterol: 42 mg/dL Total Cholesterol: 201 mg/dL Prediabetes (HbA1c of 5.7) Obesity She is not able to be complaint to diet but will try. I discussed some strategies and gave her someinstructions on healthier eating and information. Keyur Casiano MD PGY-6 Digital Solution Architect [facility] [place] 2:59 PM 03/24/23 Associated attestation - Alexandr Urrutia MD - 03/28/2023 10:40 AM EST I have personally seen the patient with the doctor.I agree with the assessment and plan for bariatric clearance. Very low risk. documented in this [facility]12-18-2023 Instructions* Patient Instructions* Keyur Casiano MD - 03/24/2023 2:00 PM EST Please consider watching [employer] and [employer] Please consider cooking from How to Prevent and Reverse Heart Disease Cookbook, [employer] Cookbook, How Not to From Heart Disease Cookbook Please watch GEGE Gracia's Inspirational Story on YouTube Please consider researching metabolic syndrome following a low glycemic index diet , and begin an aerobic and resistance exercise program with goals of 40 minutes of aerobic exercise and 15 minutes of resistance exercise most days of the week. documented in this [facility] [id number] Instructions* Patient Instructions* Keyur Casiano MD - 03/24/2023 2:00 PM EST Please consider watching [employer] Ch[employer] and [employer] Please consider cooking from How to Prevent and Reverse Heart Disease Cookbook, [employer] Cookbook, How Not to From Heart Disease Cookbook Please watch GEGE Gracia's Inspirational Story on YouTube Please consider researching metabolic syndrome following a low glycemic index diet , and begin an aerobic and resistance exercise program with goals of 40 minutes of aerobic exercise and 15 minutes of resistance exercise most days of the week. documented in this [facility] [id number] Telephone encounter Note* Telephone Encounter - Adriana Shannon RD - 03/21/2023 4:42 PM EST Sent pt [employer] Technology[employer] message regarding low D at 29. Pt taking 1000 I U daily, will increase to 2000 I U daily. Will monitor levels postoperatively. BLOVES Phone: [phone] 640-192712-15-2023 Telephone encounter Note* Telephone Encounter - Adriana Shannon RD - 03/21/2023 4:42 PM EST ----- Message from Tanika Ragsdale NP sent at 03/21/2023 9:56 AM EST ----- Hi Mynor! D low. Thanks! [place] [id number] Miscellaneous Notes* Telephone Encounter - Adriana Shannon RD - 03/21/2023 4:42 PM EST Sent pt CRAZE message regarding low D at 29. Pt taking 1000 I U daily, will increase to 2000 I U daily. Will monitor levels postoperatively. * Telephone Encounter - Adriana Shannon RD - 03/21/2023 4:42 PM EST ----- Message from Tanika Ragsdale NP sent at 03/21/2023 9:56 AM EST ----- Hi Mynor! D low. Thanks! documented in this encounterSOhioHealth Doctors [id number] Note* Addendum Note - Kole Asher - 03/20/2023 2:11 PM ESTAddended by: KOLE ASHER on: 03/20/2023 02:11 PM Modules accepted: Orders [place] [id number] Miscellaneous Notes* Addendum Note - Kole Asher - 03/20/2023 2:11 PM ESTAddended by: KOLE ASHER on: 03/20/2023 02:11 PM Modules accepted: Orders * Telephone Encounter - Tanika Ragsdale NP - 02/19/2023 9:15 AM EST Order signed. * Telephone Encounter - Ivett Mir RD - 02/19/2023 8:41 AM EST Pt not taking any vitamin D supplements currently. To add 1,000 international units vitamin D everyday. Med list updated. Will recheck levels in 3 months orders pended * Telephone Encounter - Ivett Mir RD - 02/17/2023 3:11 PM EST D: 37 * Telephone Encounter - Ivett Mir RD - 02/17/2023 1:02 PM EST ----- Message from Tanika Ragsdale NP sent at 02/17/2023 12:52 PM EST ----- Low normal D :) documented in this [facility]12-14-2023 History of Present illness Narrative* Shanda Medina MA - 03/20/2023 1:40 PM EST [facility] SURGICAL WEIGHT LOSS MANAGEMENT PROGRAM PROGRESS NOTE FOLLOW UP Patient: Sloane Rinaldi Date of : 1950 Service Date: 03/20/2023 DE Visit number: 3 of 3 Pre Program Weight Metrics Date of Initial Consultation:@FLOWLAST(8961)@ Initial Weight: @FLOWLAST([id number])@ Initial BMI: @FLOWLAST([id number])@ [place] Body Weight: @FLOWLAST([id number])@ Excess Body Weight: @FLOWLAST([id number])@ Follow Up Weight Metrics Last Three Weights Including Today's Weight: Wt Readings from Last 3 Encounters: 03/20/23 260 lb 6.4 oz (118 kg) 02/17/23 261 lb (118 kg) 02/05/23 263 lb 3.2 oz (119 kg) Today's BMI: BMI: 48.40 %EBWL: % EBWL: 2% Weight Chance Since Last Visit: Weight Change: -.6 lbs Weight Change from Initial DE/SPR Weight: Total Weight Change: -3.2 lbs Patient has the following question(s): none Falls Risk Assessment Patient doestake medications which affect BP or mental status Patient does not have newly prescribed or changed dosage of medications within past 30 days which affect BP or mental status Patient has not fallen in the past 2 months Patient does notdemonstrate unsteady gait Patient uses the following ambulatory assistive devices: none Patient states the presence of the following traits which increases risk of fall: none Patient is not on home O2 Completed by: Shanda Medina MA * Juan Cody MD - 03/20/2023 1:40 PM EST [facility] - SURGICAL WEIGHT LOSS MANAGEMENT PROGRAM PHYSICIAN SUPERVISED DIET AND EXERCISE SURGICAL PREPARATORY REGIMEN - FOLLOW UP Patient is here today for follow up of their physician supervised diet and exercise in preparation for weight loss surgery Weight trend since last visit: lost 1 pounds. This patient's excess weight is causing the following co-morbid conditions at this time: severe obesity and HTN and Other pre diabetes The patient does not have any acute complaints. Physical Examination: BP 105/70 Pulse 90 Ht 5' 1.5 (1.562 m) Wt 260 lb 6.4 oz (118 kg) BMI 48.41 kg/m Awake, alert, and oriented, no apparent distress. No respiratory distress, no conversational dyspnea Neurologic: Intact x 4 extremities, no focal deficits notes. No slurred speech Ambulatory without assistance. Assessment of Current Diet and Exercise Current Diet After dinner / night eating: none Breakfast: daily Carbohydrate with protein: yes Cravings: no significant cravings Sugar sweetened beverages: none Plan: --Obesity Class III, Elevated BMI Diet and exercise (DE) Following with bariatric surgery Advised patient that they must adhere to regular monthly visits to meet the requirements of the insurance company. Additionally, they must demonstrate meal plan adoption to show readiness for the changes that will be required following surgery. Diet recommendations provided to patient verbally and in the form of handouts; they understood and agreed with plan. -Lost 50 pounds in the past with dietary modifications. Chewing slower, helps with portion control - Ms. Rinaldi continues to do this --HTN: controlled today, continue monitoring, follow with PCP --Pre-Diabetes, management per outpatient providers, continue lifestyle modifications --Sleep: Pulmonology clearance required prior to surgery --History of cancer 1997 - follow with outpatient providers Advised patient to continue to adhere to regular monthly visits to meet the requirements of the insurance company. Additionally, they must adopt meal plan recommendations to demonstrate readiness for the changes that will be required following surgery. Patient's eating behaviors does demonstrates adoption of eating plan recommendations. Physician diet recommendations provided to the patient. Plan of care discussed with patient, all questions answered, they agree with plan of care. Medical decision making: Patient's medical conditions place them at a moderate risk of complications, morbidity, and mortality. Patient: [] To return in one month for follow up [x] Has completed insurance required monthly diet and exercise series [] Needs to continue monthly visits until authorization/surgery date obtained. ([place]) No orders of the defined types were placed in this encounter. Current Meds Patient's Medications New Prescriptions No medications on file Previous Medications ALBUTEROL 108 (90 BASE) MCG/ACT INHALER Daily as needed. LEVOTHYROXINE (SYNTHROID, LEVOXYL) 100 MCG TABLET Take 100 mcg by mouth daily. LOSARTAN-HYDROCHLOROTHIAZIDE (HYZAAR) 50-12.5 MG TABLET Take 1 tablet by mouth before bedtime. MULTIPLE VITAMINS-IRON (MULTIPLE VITAMIN/IRON PO) Take by mouth. VITAMIN D, CHOLECALCIFEROL, PO Take 1,000 Int'l Units by mouth daily. Modified Medications No medications on file Discontinued Medications No medications on file I reviewed all of the patient's medications and diagnoses listed in Epic. documented in this [facility]11-21-2023 History of Present illness Narrative* Tanika Ragsdale NP - 02/25/2023 2:57 PM EST ENDOSCOPY ORDERS To be scheduled with: Dr. Elder Patient is: Pre-op/Pre-Bariatric Surgery CPT code: EGD with biopsy- CPT 25315 Diagnosis: GERD- K21.9 and Dyspepsia- K30 If pre-op, Diet & Exercise Requirements are, and started/scheduled on : 3 months Home O2: No Known Difficult Intubation: No Is patient on a GLP-1 agonist? No If yes- which one? N/A Please advise that patient hold this medication for 1 week before EGD To be done routinely based on UGI findings documented in this [facility]11-21-2023 History of Present illness Narrative* Tanika Ragsdale NP - 02/25/2023 2:57 PM EST ENDOSCOPY ORDERS To be scheduled with: Dr. Elder Patient is: Pre-op/Pre-Bariatric Surgery CPT code: EGD with biopsy- CPT 43443 Diagnosis: GERD- K21.9 and Dyspepsia- K30 If pre-op, Diet & Exercise Requirements are, and started/scheduled on : 3 months Home O2: No Known Difficult Intubation: No Is patient on a GLP-1 agonist? No If yes- which one? N/A Please advise that patient hold this medication for 1 week before EGD To be done routinely based on UGI findings * Edita Quintero - 02/25/2023 2:57 PM EST [facility] * Edita Quintero - 02/25/2023 2:57 PM EST 04/11/23 [facility] 10:00 AM documented in this [facility]11-21-2023 History of Present illness Narrative* Tanika Ragsdale NP - 02/25/2023 2:57 PM EST ENDOSCOPY ORDERS To be scheduled with: Dr. Elder Patient is: Pre-op/Pre-Bariatric Surgery CPT code: EGD with biopsy- CPT 23410 Diagnosis: GERD- K21.9 and Dyspepsia- K30 If pre-op, Diet & Exercise Requirements are, and started/scheduled on : 3 months Home O2: No Known Difficult Intubation: No Is patient on a GLP-1 agonist? No If yes- which one? N/A Please advise that patient hold this medication for 1 week before EGD To be done routinely based on UGI findings * Edita Quintero - 02/25/2023 2:57 PM EST [facility] * Edita Quintero - 02/25/2023 2:57 PM EST 04/11/23 [facility] 10:00 AM * Roberto Sow - 02/25/2023 2:57 PM EST Printed. NF documented in this encounterSOhioHealth Doctors [id number] Telephone encounter Note* Telephone Encounter - Tanika Ragsdale NP - 02/25/2023 2:53 PM EST IMPRESSION: Questionable small gastric polyp or ulceration. Tertiary waves without dysmotility. Small hiatal hernia without gastroesophageal reflux. Large diverticulum of the proximal duodenum. Called patient to review findings. Denies any epigastric pain or ulcer risk factors. Will order EGDfor further evaluation of findings. Pt agreeable to plan and agrees to reach out if pain arises. [facility] [id number] Miscellaneous Notes* Telephone Encounter - Tanika Ragsdale NP - 02/25/2023 2:53 PM EST IMPRESSION: Questionable small gastric polyp or ulceration. Tertiary waves without dysmotility. Small hiatal hernia without gastroesophageal reflux. Large diverticulum of the proximal duodenum. Called patient to review findings. Denies any epigastric pain or ulcer risk factors. Will order EGDfor further evaluation of findings. Pt agreeable to plan and agrees to reach out if pain arises. * Telephone Encounter - Petra Cowart - 02/24/2023 10:28 AM EST This patient has been rescheduled with Dr Cody in [place] on 03/20, and notified. * Telephone Encounter - Concetta Holt - 02/21/2023 7:49 AM EST Please call patient to schedule her d/e final. Thanks Looks like she sees Glo in [place] * Addendum Note - Katharine Story - 02/17/2023 9:03 AM ESTAddended by: KATHARINE STORY on: 02/17/2023 09:03 AM Modules accepted: Orders * Telephone Encounter - Heidy Graves LPN - 12/30/2022 2:44 PM EDT Pre op cheklist scanned to media, orders mailed. * Addendum Note - Tanika Ragsdale NP - 12/25/2022 1:57 PM EDTAddended by: TANIKA RAGSDALE on: 12/25/2022 01:57 PM Modules accepted: Orders * Telephone Encounter - Tanika Ragsdale NP - 12/25/2022 1:57 PM EDT Orders signed. Checklist completed. * Telephone Encounter - Tanika Ragsdale NP - 12/25/2022 1:52 PM EDT I have recommended proceeding with the evaluation and work-up for the primary procedure as outlinedbelow: Dr. Elder PATIENT SUMMARY Sloane Rinaldi 72 y.o. female with Body mass index is 48.44 kg/m . Laparoscopic Sleeve Gastrectomy and Laparoscopic Liver Biopsy DM[] HTN[x] VINAY[] GERD[] HL[] OA[x] Date of Surgery: TBD Bryan Barboaz INITIAL TESTING RESULTS Labwork [x] CMP, TSH, Fasting Lipid Profile, Mg, Zinc, Vit B1 (whole blood), Vit B12, 25-OH Vit D, Fe, Ferritin, Folate Tobacco [] Serum Nicotine / Cotinine [] Negative [] Positive PLEASE ADD SERUM NICOTINE/COTININE WITH INITIAL LABS ON ALL LRYGB PROCEDURES EGD [] Dx: [] GERD [x] Dyspepsia [] Other Pathology [x] H. pylori [] Negative [] Positive UGI [x] [] not ordered US Abdomen [] [] not ordered VINAY eval [] [] On CPAP / Obtain settings Hematology [] [] Hypercoagulation panel Toxicology [] [] Urine drug screen [] EtOH screen Addtional [x] [x] Hgb A1c INITIAL CONSULTATIONS CLEARANCE / MANAGEMENT Psychology [x] Dietitian [x] Cardiology [x] Dr. Garner Box Turner during recent hospitalization in October Pulmonary [x] Dr. Rollins [] []Heme/Onc []Psychiatry []Pain mgmt PSD [x] Physician supervised diet: []None [x]3 mos []6 mos Preop diet [x] Preop low calorie diet: []None []1 wk [x]2 wks FINAL PRE-OP TESTING RESULTS Labwork [x] [x]Pre-op CBC [x]BMP []Serum Nicotine / Cotinine EKG [x] CXR [x] POST-OP MEDICATIONS Ulcer Ppx [] Omeprazole 20 mg PO []QD []BID Gallstone Ppx [] Ursodiol 300 mg []BID DVT Ppx [x] DVT prophylaxis per final preop visit estimated risk Estimated calculated risk: % Schedule final pre-operative office visit with surgeon, pre-operative education class, and pre-operative exercise class prior to date of surgery ATTESTATION I reviewed with the patient the details of the proposed operation. The risks benefits and options were discussed. Risks included but were not limited to bleeding, infection, damage to other surrounding organs, cardio-pulmonary complications related to anesthesia, conversion from laparoscopic to andopen procedure, the need for reoperative or endoscopic therapy, the potential for prolonged mechanical ventilation, and . All questions were fully answered to the patient's satisfaction and theywish to proceed with surgical intervention. Greater than 51% of the 45 minute visit was spent as face to face encounter, counseling the patientand discussing the risks,benefits and options of surgery as well as the perioperative care plan. The patient was seen and examined independently and relevant data including a full chart rreview was performed by myself. Patient Care Team: Bryan Barboza as PCP - General (Family Medicine) Josef Elder MD as Surgeon (General Surgery) * Telephone Encounter - Claudia Emmanuel Jenkins - 12/24/2022 12:24 PM EDT Initial New [facility] surgical patient Navigation & Financial Counseling Discussion Patient Communication: In office SURGEON: [] JSheldon [] AD [] MP [x] TB [] LM PROCEDURE: [] LRYGB [] LSG [] СВЕТЛАНА-S [] СВЕТЛАНА [] UNDECIDED [] REV: SPECIFY: Confirmed pt wants to continue with surgical program/plan [] YES [] NO (complete program withdrawalnote/process) CO-MORBIDS: [] NONE [] DM []HTN [] VINAY []GERD [] OTH: PRIVATE PAY: [] NO []YES DATE OF INITIAL BENEFITS VERIFICATION: TRANSFER FU: [] YES [] NO PRIMARY INSURANCE: Payor: MEDICARE / Plan: MEDICARE PART A AND B / Product Type: Medicare / BENEFIT ON PLAN: [] NO [] YES BENEFIT MAX: [] NO [] YES -- BENEFIT MAX: $ EMPLOYER: DIET AND EXERCISE (DE) REQUIREMENT PRIMARY [] NONE [x]3M [] 6M []9M [] Medicare 4 Months [] SPR (3M) []OTHER: SECONDARY INSURANCE: BENEFIT ON PLAN: [] NO [] YES BENEFIT MAX: [] NO [] YES -- BENEFIT MAX: $ AUTH REQUIRED FROM SECONDARY [] NO [] YES DIET AND EXERCISE REQUIREMENT SECONDARY [] NONE []3M [] 6M [] Medicare 4 months [] SPR (3M) []OTHER: ___ [x] Discussed with patient: Financial cost overview (document signed and pt given copy at new pt consult visit with surgeon), Initial appointments: Bariatric Nutrition Assessment (BNA) & Diet and Exercise (DE) Patient to look for yellow envelope in mail. This yellow envelope will contain orders for labs, testing and required clearances. Pt encouraged to complete early in program to prevent delays. Encourage blood work to be draw by 1st DE appointment. [x] Reviewed OOP cost, including: [] Optifast cost of approximately $130-140/week x weeks immediately prior to surgery - used to induce rapid weight loss which results in decrease in size of liver and therefore facilitates laparoscopically surgery approach. [x] Overview of inpatient admission benefits - estimated inpatient co-pays, deductibles and/or co-insurance - Estimated OOP costs form reviewed with patient, and copy given to patient at new pt visit. [x] Reviewed next steps with patient: 1) Scheduled at new pt surgeon visit: Fire Protection Designer (RD) for a Nutrition Assessment (BNA) and Pre-operative Diet and Exercise (DE)appointment #1. [x] Patient reminded to arrive 15 minutes early for check in. Late arrivals may need to be rescheduled. 2) Schedule: Diet and Exercise Apt #2 only scheduled after initial BNA and DE completed, 3) Behavioral Health apt scheduled after DE started. Reviewed rational and goal of Behavioral Health appointments. 4) [x] Reinforced need to cancel any WMI appointments 48 hours in advance. Cautioned NS/Same day cancellations may result in delay in program or program completion hold. Noted: DE series needs to be a monthly series or insurance company may require repeat of the entire series. 5) [x] Smoker/tobacco products including vaping: reviewed need for cessation before surgery clearance and life long abstinence after surgery for best outcomes. Patient navigation to surgery: [x] Explained to patient that average time from initial consult to date of surgery can be 6-8 months. - Process can take longer if there are cancelled appointments, delays in testing and/or additional clearances that needs to be completed. - Reviewed importance of patient active engagement in making and keeping appointments to keep the process moving. - Reinforced need to cancel appointments at least 48 hours in advance. Reviewed that instances of No Shows and Same Day Appointment Cancellations may result in program/surgery delay or hold. [x] Patient advised of importance of having voicemail and MyChart for office communications and lab/testing results before and after surgery. documented in this encounterSOhio[facility] [id number] Telephone encounter Note* Telephone Encounter - Petra Cowart - 02/24/2023 10:28 AM EST This patient has been rescheduled with Dr Cody in [place] on 03/20, and notified. [facility] [id number] Miscellaneous Notes* Telephone Encounter - Petra Cowart - 02/24/2023 10:28 AM EST This patient has been rescheduled with Dr Cody in [place] on 03/20, and notified. * Telephone Encounter - Concetta Holt - 02/21/2023 7:49 AM EST Please call patient to schedule her d/e final. Thanks Looks like she sees Glo hendrickson [place] * Addendum Note - Katharine Story - 02/17/2023 9:03 AM ESTAddended by: KATHARINE STORY on: 02/17/2023 09:03 AM Modules accepted: Orders * Telephone Encounter - Heidy Graves LPN - 12/30/2022 2:44 PM EDT Pre op cheklist scanned to media, orders mailed. * Addendum Note - Tanika Ragsdale NP - 12/25/2022 1:57 PM EDTAddended by: TANIKA RAGSDALE on: 12/25/2022 01:57 PM Modules accepted: Orders * Telephone Encounter - Tanika Ragsdale NP - 12/25/2022 1:57 PM EDT Orders signed. Checklist completed. * Telephone Encounter - Tanika Ragsdale NP - 12/25/2022 1:52 PM EDT I have recommended proceeding with the evaluation and work-up for the primary procedure as outlinedbelow: Dr. Elder PATIENT SUMMARY Sloane Rinaldi 72 y.o. female with Body mass index is 48.44 kg/m . Laparoscopic Sleeve Gastrectomy and Laparoscopic Liver Biopsy DM[] HTN[x] VINAY[] GERD[] HL[] OA[x] Date of Surgery: TBD Bryan Barboza INITIAL TESTING RESULTS Labwork [x] CMP, TSH, Fasting Lipid Profile, Mg, Zinc, Vit B1 (whole blood), Vit B12, 25-OH Vit D, Fe, Ferritin, Folate Tobacco [] Serum Nicotine / Cotinine [] Negative [] Positive PLEASE ADD SERUM NICOTINE/COTININE WITH INITIAL LABS ON ALL LRYGB PROCEDURES EGD [] Dx: [] GERD [x] Dyspepsia [] Other Pathology [x] H. pylori [] Negative [] Positive UGI [x] [] not ordered US Abdomen [] [] not ordered VINAY eval [] [] On CPAP / Obtain settings Hematology [] [] Hypercoagulation panel Toxicology [] [] Urine drug screen [] EtOH screen Addtional [x] [x] Hgb A1c INITIAL CONSULTATIONS CLEARANCE / MANAGEMENT Psychology [x] Dietmanuelito [x] Cardiology [x] Dr. Garner Box Turner during recent hospitalization in October Pulmonary [x] Dr. Rollins [] []Heme/Onc []Psychiatry []Pain mgmt PSD [x] Physician supervised diet: []None [x]3 mos []6 mos Preop diet [x] Preop low calorie diet: []None []1 wk [x]2 wks FINAL PRE-OP TESTING RESULTS Labwork [x] [x]Pre-op CBC [x]BMP []Serum Nicotine / Cotinine EKG [x] CXR [x] POST-OP MEDICATIONS Ulcer Ppx [] Omeprazole 20 mg PO []QD []BID Gallstone Ppx [] Ursodiol 300 mg []BID DVT Ppx [x] DVT prophylaxis per final preop visit estimated risk Estimated calculated risk: % Schedule final pre-operative office visit with surgeon, pre-operative education class, and pre-operative exercise class prior to date of surgery ATTESTATION I reviewed with the patient the details of the proposed operation. The risks benefits and options were discussed. Risks included but were not limited to bleeding, infection, damage to other surrounding organs, cardio-pulmonary complications related to anesthesia, conversion from laparoscopic to andopen procedure, the need for reoperative or endoscopic therapy, the potential for prolonged mechanical ventilation, and . All questions were fully answered to the patient's satisfaction and theywish to proceed with surgical intervention. Greater than 51% of the 45 minute visit was spent as face to face encounter, counseling the patientand discussing the risks,benefits and options of surgery as well as the perioperative care plan. The patient was seen and examined independently and relevant data including a full chart rreview was performed by myself. Patient Care Team: Bryan Barboza as PCP - General (Family Medicine) Josef Elder MD as Surgeon (General Surgery) * Telephone Encounter - Claudia Jenkins - 12/24/2022 12:24 PM EDT Initial New [facility] surgical patient Navigation & Financial Counseling Discussion Patient Communication: In office SURGEON: [] ANNALISE [] AD [] MP [x] TB [] LM PROCEDURE: [] LRYGB [] LSG [] СВЕТЛАНА-S [] СВЕТЛАНА [] UNDECIDED [] REV: SPECIFY: Confirmed pt wants to continue with surgical program/plan [] YES [] NO (complete program withdrawalnote/process) CO-MORBIDS: [] NONE [] DM []HTN [] IVNAY []GERD [] OTH: PRIVATE PAY: [] NO []YES DATE OF INITIAL BENEFITS VERIFICATION: TRANSFER FU: [] YES [] NO PRIMARY INSURANCE: Payor: MEDICARE / Plan: MEDICARE PART A AND B / Product Type: Medicare / BENEFIT ON PLAN: [] NO [] YES BENEFIT MAX: [] NO [] YES -- BENEFIT MAX: $ EMPLOYER: DIET AND EXERCISE (DE) REQUIREMENT PRIMARY [] NONE [x]3M [] 6M []9M [] Medicare 4 Months [] SPR (3M) []OTHER: SECONDARY INSURANCE: BENEFIT ON PLAN: [] NO [] YES BENEFIT MAX: [] NO [] YES -- BENEFIT MAX: $ AUTH REQUIRED FROM SECONDARY [] NO [] YES DIET AND EXERCISE REQUIREMENT SECONDARY [] NONE []3M [] 6M [] Medicare 4 months [] SPR (3M) []OTHER: ___ [x] Discussed with patient: Financial cost overview (document signed and pt given copy at new pt consult visit with surgeon), Initial appointments: Bariatric Nutrition Assessment (BNA) & Diet and Exercise (DE) Patient to look for yellow envelope in mail. This yellow envelope will contain orders for labs, testing and required clearances. Pt encouraged to complete early in program to prevent delays. Encourage blood work to be draw by 1st DE appointment. [x] Reviewed OOP cost, including: [] Optifast cost of approximately $130-140/week x weeks immediately prior to surgery - used to induce rapid weight loss which results in decrease in size of liver and therefore facilitates laparoscopically surgery approach. [x] Overview of inpatient admission benefits - estimated inpatient co-pays, deductibles and/or co-insurance - Estimated OOP costs form reviewed with patient, and copy given to patient at new pt visit. [x] Reviewed next steps with patient: 1) Scheduled at new pt surgeon visit: Fire Protection Designer (RD) for a Nutrition Assessment (BNA) and Pre-operative Diet and Exercise (DE)appointment #1. [x] Patient reminded to arrive 15 minutes early for check in. Late arrivals may need to be rescheduled. 2) Schedule: Diet and Exercise Apt #2 only scheduled after initial BNA and DE completed, 3) Behavioral Health apt scheduled after DE started. Reviewed rational and goal of Behavioral Health appointments. 4) [x] Reinforced need to cancel any WMI appointments 48 hours in advance. Cautioned NS/Same day cancellations may result in delay in program or program completion hold. Noted: DE series needs to be a monthly series or insurance company may require repeat of the entire series. 5) [x] Smoker/tobacco products including vaping: reviewed need for cessation before surgery clearance and life long abstinence after surgery for best outcomes. Patient navigation to surgery: [x] Explained to patient that average time from initial consult to date of surgery can be 6-8 months. - Process can take longer if there are cancelled appointments, delays in testing and/or additional clearances that needs to be completed. - Reviewed importance of patient active engagement in making and keeping appointments to keep the process moving. - Reinforced need to cancel appointments at least 48 hours in advance. Reviewed that instances of No Shows and Same Day Appointment Cancellations may result in program/surgery delay or hold. [x] Patient advised of importance of having voicemail and MyChart for office communications and lab/testing results before and after surgery. documented in this [facility] [place]11-17-2023 Telephone encounter Note* Telephone Encounter - Concetta Holt - 02/21/2023 7:49 AM EST Please call patient to schedule her d/e final. Thanks Looks like she sees Glo in [place] [facility] [id number] Miscellaneous Notes* Telephone Encounter - Concetta Holt - 02/21/2023 7:49 AM EST Please call patient to schedule her d/e final. Thanks Looks like she sees Glo in [place] * Addendum Note - Katharine Story - 02/17/2023 9:03 AM ESTAddended by: KATHARINE STORY on: 02/17/2023 09:03 AM Modules accepted: Orders * Telephone Encounter - Heidy Graves LPN - 12/30/2022 2:44 PM EDT Pre op cheklist scanned to media, orders mailed. * Addendum Note - Tanika Ragsdale NP - 12/25/2022 1:57 PM EDTAddended by: TANIKA RAGSDALE on: 12/25/2022 01:57 PM Modules accepted: Orders * Telephone Encounter - Tanika Ragsdale NP - 12/25/2022 1:57 PM EDT Orders signed. Checklist completed. * Telephone Encounter - Tanika Ragsdale NP - 12/25/2022 1:52 PM EDT I have recommended proceeding with the evaluation and work-up for the primary procedure as outlinedbelow: Dr. Elder PATIENT SUMMARY Sloane Rinaldi 72 y.o. female with Body mass index is 48.44 kg/m . Laparoscopic Sleeve Gastrectomy and Laparoscopic Liver Biopsy DM[] HTN[x] VINAY[] GERD[] HL[] OA[x] Date of Surgery: ANDREW Barboza INITIAL TESTING RESULTS Labwork [x] CMP, TSH, Fasting Lipid Profile, Mg, Zinc, Vit B1 (whole blood), Vit B12, 25-OH Vit D, Fe, Ferritin, Folate Tobacco [] Serum Nicotine / Cotinine [] Negative [] Positive PLEASE ADD SERUM NICOTINE/COTININE WITH INITIAL LABS ON ALL LRYGB PROCEDURES EGD [] Dx: [] GERD [x] Dyspepsia [] Other Pathology [x] H. pylori [] Negative [] Positive UGI [x] [] not ordered US Abdomen [] [] not ordered VINAY eval [] [] On CPAP / Obtain settings Hematology [] [] Hypercoagulation panel Toxicology [] [] Urine drug screen [] EtOH screen Addtional [x] [x] Hgb A1c INITIAL CONSULTATIONS CLEARANCE / MANAGEMENT Psychology [x] Dietitian [x] Cardiology [x] Dr. Garner Box Turner during recent hospitalization in October Pulmonary [x] Others [] []Heme/Onc []Psychiatry []Pain mgmt PSD [x] Physician supervised diet: []None [x]3 mos []6 mos Preop diet [x] Preop low calorie diet: []None []1 wk [x]2 wks FINAL PRE-OP TESTING RESULTS Labwork [x] [x]Pre-op CBC [x]BMP []Serum Nicotine / Cotinine EKG [x] CXR [x] POST-OP MEDICATIONS Ulcer Ppx [] Omeprazole 20 mg PO []QD []BID Gallstone Ppx [] Ursodiol 300 mg []BID DVT Ppx [x] DVT prophylaxis per final preop visit estimated risk Estimated calculated risk: % Schedule final pre-operative office visit with surgeon, pre-operative education class, and pre-operative exercise class prior to date of surgery ATTESTATION I reviewed with the patient the details of the proposed operation. The risks benefits and options were discussed. Risks included but were not limited to bleeding, infection, damage to other surrounding organs, cardio-pulmonary complications related to anesthesia, conversion from laparoscopic to andopen procedure, the need for reoperative or endoscopic therapy, the potential for prolonged mechanical ventilation, and . All questions were fully answered to the patient's satisfaction and theywish to proceed with surgical intervention. Greater than 51% of the 45 minute visit was spent as face to face encounter, counseling the patientand discussing the risks,benefits and options of surgery as well as the perioperative care plan. The patient was seen and examined independently and relevant data including a full chart rreview was performed by myself. Patient Care Team: Bryan Barboza as PCP - General (Family Medicine) Josef Elder MD as Surgeon (General Surgery) * Telephone Encounter - Claudia Jenkins - 12/24/2022 12:24 PM EDT Initial New [facility] surgical patient Navigation & Financial Counseling Discussion Patient Communication: In office SURGEON: [] JZ [] AD [] MP [x] TB [] LM PROCEDURE: [] LRYGB [] LSG [] СВЕТЛАНА-S [] СВЕТЛАНА [] UNDECIDED [] REV: SPECIFY: Confirmed pt wants to continue with surgical program/plan [] YES [] NO (complete program withdrawalnote/process) CO-MORBIDS: [] NONE [] DM []HTN [] VINAY []GERD [] OTH: PRIVATE PAY: [] NO []YES DATE OF INITIAL BENEFITS VERIFICATION: TRANSFER FU: [] YES [] NO PRIMARY INSURANCE: Payor: MEDICARE / Plan: MEDICARE PART A AND B / Product Type: Medicare / BENEFIT ON PLAN: [] NO [] YES BENEFIT MAX: [] NO [] YES -- BENEFIT MAX: $ EMPLOYER: DIET AND EXERCISE (DE) REQUIREMENT PRIMARY [] NONE [x]3M [] 6M []9M [] Medicare 4 Months [] SPR (3M) []OTHER: SECONDARY INSURANCE: BENEFIT ON PLAN: [] NO [] YES BENEFIT MAX: [] NO [] YES -- BENEFIT MAX: $ AUTH REQUIRED FROM SECONDARY [] NO [] YES DIET AND EXERCISE REQUIREMENT SECONDARY [] NONE []3M [] 6M [] Medicare 4 months [] SPR (3M) []OTHER: ___ [x] Discussed with patient: Financial cost overview (document signed and pt given copy at new pt consult visit with surgeon), Initial appointments: Bariatric Nutrition Assessment (BNA) & Diet and Exercise (DE) Patient to look for yellow envelope in mail. This yellow envelope will contain orders for labs, testing and required clearances. Pt encouraged to complete early in program to prevent delays. Encourage blood work to be draw by 1st DE appointment. [x] Reviewed OOP cost, including: [] Optifast cost of approximately $130-140/week x weeks immediately prior to surgery - used to induce rapid weight loss which results in decrease in size of liver and therefore facilitates laparoscopically surgery approach. [x] Overview of inpatient admission benefits - estimated inpatient co-pays, deductibles and/or co-insurance - Estimated OOP costs form reviewed with patient, and copy given to patient at new pt visit. [x] Reviewed next steps with patient: 1) Scheduled at new pt surgeon visit: Fire Protection Designer (RD) for a Nutrition Assessment (BNA) and Pre-operative Diet and Exercise (DE)appointment #1. [x] Patient reminded to arrive 15 minutes early for check in. Late arrivals may need to be rescheduled. 2) Schedule: Diet and Exercise Apt #2 only scheduled after initial BNA and DE completed, 3) Behavioral Health apt scheduled after DE started. Reviewed rational and goal of Behavioral Health appointments. 4) [x] Reinforced need to cancel any WMI appointments 48 hours in advance. Cautioned NS/Same day cancellations may result in delay in program or program completion hold. Noted: DE series needs to be a monthly series or insurance company may require repeat of the entire series. 5) [x] Smoker/tobacco products including vaping: reviewed need for cessation before surgery clearance and life long abstinence after surgery for best outcomes. Patient navigation to surgery: [x] Explained to patient that average time from initial consult to date of surgery can be 6-8 months. - Process can take longer if there are cancelled appointments, delays in testing and/or additional clearances that needs to be completed. - Reviewed importance of patient active engagement in making and keeping appointments to keep the process moving. - Reinforced need to cancel appointments at least 48 hours in advance. Reviewed that instances of No Shows and Same Day Appointment Cancellations may result in program/surgery delay or hold. [x] Patient advised of importance of having voicemail and MyChart for office communications and lab/testing results before and after surgery. documented in this [facility] [place]11-15-2023 Telephone encounter Note* Telephone Encounter - Tanika Ragsdale NP - 02/19/2023 9:15 AM EST Order signed. [employer] Work Phone: [phone] 950-828911-15-2023 Miscellaneous Notes* Telephone Encounter - Tanika Ragsdale NP - 02/19/2023 9:15 AM EST Order signed. * Telephone Encounter - Ivett Mir RD - 02/19/2023 8:41 AM EST Pt not taking any vitamin D supplements currently. To add 1,000 international units vitamin D everyday. Med list updated. Will recheck levels in 3 months orders pended * Telephone Encounter - Ivett Mir RD - 02/17/2023 3:11 PM EST D: 37 * Telephone Encounter - Ivett Mir RD - 02/17/2023 1:02 PM EST ----- Message from Tanika Ragsdale NP sent at 02/17/2023 12:52 PM EST ----- Low normal D :) documented in this [facility] [place]11-15-2023 Telephone encounter Note* Telephone Encounter - Ivett Mir RD - 02/19/2023 8:41 AM EST Pt not taking any vitamin D supplements currently. To add 1,000 international units vitamin D everyday. Med list updated. Will recheck levels in 3 months orders pended [place] [id number] Telephone encounter Note* Telephone Encounter - Ivett Mir RD - 02/17/2023 3:11 PM EST D: [address] [place] [id number] Telephone encounter Note* Telephone Encounter - Ivett Mir RD - 02/17/2023 1:02 PM EST ----- Message from Tanika Ragsdale NP sent at 02/17/2023 12:52 PM EST ----- Low normal D :) [id number] Note* Addendum Note - Katharine Story - 02/17/2023 9:03 AM ESTAddended by: KATHARINE STORY on: 02/17/2023 09:03 AM Modules accepted: Orders [id number] Note* Addendum Note - Katharine tSory - 02/17/2023 9:03 AM ESTAddended by: KATHARINE STORY on: 02/17/2023 09:03 AM Modules accepted: Orders [id number] Note* Addendum Note - Katharine Story - 02/17/2023 9:03 AM ESTAddended by: KATHARINE STORY on: 02/17/2023 09:03 AM Modules accepted: Orders [id number] Note* Addendum Note - Katharine Story - 02/17/2023 9:03 AM ESTAddended by: KATHARINE STORY on: 02/17/2023 09:03 AM Modules accepted: Orders [id number] Note* Addendum Note - Katharine Story - 02/17/2023 9:03 AM ESTAddended by: KATHARINE STORY on: 02/17/2023 09:03 AM Modules accepted: Orders [facility] [id number] Note* Addendum Note - Katharine Story - 02/17/2023 9:03 AM ESTAddended by: KATHARINE STORY on: 02/17/2023 09:03 AM Modules accepted: Orders [facility] [id number] Miscellaneous Notes* Addendum Note - Katharine Story - 02/17/2023 9:03 AM ESTAddended by: KATHARINE STORY on: 02/17/2023 09:03 AM Modules accepted: Orders * Telephone Encounter - Heidy Graves LPN - 12/30/2022 2:44 PM EDT Pre op cheklist scanned to media, orders mailed. * Addendum Note - Tanika Ragsdale NP - 12/25/2022 1:57 PM EDTAddended by: TANIKA RAGSDALE on: 12/25/2022 01:57 PM Modules accepted: Orders * Telephone Encounter - Tanika Ragsdale NP - 12/25/2022 1:57 PM EDT Orders signed. Checklist completed. * Telephone Encounter - Tanika Ragsdale NP - 12/25/2022 1:52 PM EDT I have recommended proceeding with the evaluation and work-up for the primary procedure as outlinedbelow: Dr. Elder PATIENT SUMMARY Sloane Rinaldi 72 y.o. female with Body mass index is 48.44 kg/m . Laparoscopic Sleeve Gastrectomy and Laparoscopic Liver Biopsy DM[] HTN[x] VINAY[] GERD[] HL[] OA[x] Date of Surgery: TBD Bryan Barboza INITIAL TESTING RESULTS Labwork [x] CMP, TSH, Fasting Lipid Profile, Mg, Zinc, Vit B1 (whole blood), Vit B12, 25-OH Vit D, Fe, Ferritin, Folate Tobacco [] Serum Nicotine / Cotinine [] Negative [] Positive PLEASE ADD SERUM NICOTINE/COTININE WITH INITIAL LABS ON ALL LRYGB PROCEDURES EGD [] Dx: [] GERD [x] Dyspepsia [] Other Pathology [x] H. pylori [] Negative [] Positive UGI [x] [] not ordered US Abdomen [] [] not ordered VINAY eval [] [] On CPAP / Obtain settings Hematology [] [] Hypercoagulation panel Toxicology [] [] Urine drug screen [] EtOH screen Addtional [x] [x] Hgb A1c INITIAL CONSULTATIONS CLEARANCE / MANAGEMENT Psychology [x] Dietitian [x] Cardiology [x] Dr. Garner Box Turner during recent hospitalization in October Pulmonary [x] Dr. Rollins [] []Heme/Onc []Psychiatry []Pain mgmt PSD [x] Physician supervised diet: []None [x]3 mos []6 mos Preop diet [x] Preop low calorie diet: []None []1 wk [x]2 wks FINAL PRE-OP TESTING RESULTS Labwork [x] [x]Pre-op CBC [x]BMP []Serum Nicotine / Cotinine EKG [x] CXR [x] POST-OP MEDICATIONS Ulcer Ppx [] Omeprazole 20 mg PO []QD []BID Gallstone Ppx [] Ursodiol 300 mg []BID DVT Ppx [x] DVT prophylaxis per final preop visit estimated risk Estimated calculated risk: % Schedule final pre-operative office visit with surgeon, pre-operative education class, and pre-operative exercise class prior to date of surgery ATTESTATION I reviewed with the patient the details of the proposed operation. The risks benefits and options were discussed. Risks included but were not limited to bleeding, infection, damage to other surrounding organs, cardio-pulmonary complications related to anesthesia, conversion from laparoscopic to andopen procedure, the need for reoperative or endoscopic therapy, the potential for prolonged mechanical ventilation, and . All questions were fully answered to the patient's satisfaction and theywish to proceed with surgical intervention. Greater than 51% of the 45 minute visit was spent as face to face encounter, counseling the patientand discussing the risks,benefits and options of surgery as well as the perioperative care plan. The patient was seen and examined independently and relevant data including a full chart rreview was performed by myself. Patient Care Team: Bryan Barboza as PCP - General (Family Medicine) Josef Elder MD as Surgeon (General Surgery) * Telephone Encounter - Claudia Jenkins - 12/24/2022 12:24 PM EDT Initial New [facility] surgical patient Navigation & Financial Counseling Discussion Patient Communication: In office SURGEON: [] JSheldon [] AD [] MP [x] TB [] LM PROCEDURE: [] LRYGB [] LSG [] СВЕТЛАНА-S [] СВЕТЛАНА [] UNDECIDED [] REV: SPECIFY: Confirmed pt wants to continue with surgical program/plan [] YES [] NO (complete program withdrawalnote/process) CO-MORBIDS: [] NONE [] DM []HTN [] VINAY []GERD [] OTH: PRIVATE PAY: [] NO []YES DATE OF INITIAL BENEFITS VERIFICATION: TRANSFER FU: [] YES [] NO PRIMARY INSURANCE: Payor: MEDICARE / Plan: MEDICARE PART A AND B / Product Type: Medicare / BENEFIT ON PLAN: [] NO [] YES BENEFIT MAX: [] NO [] YES -- BENEFIT MAX: $ EMPLOYER: DIET AND EXERCISE (DE) REQUIREMENT PRIMARY [] NONE [x]3M [] 6M []9M [] Medicare 4 Months [] SPR (3M) []OTHER: SECONDARY INSURANCE: BENEFIT ON PLAN: [] NO [] YES BENEFIT MAX: [] NO [] YES -- BENEFIT MAX: $ AUTH REQUIRED FROM SECONDARY [] NO [] YES DIET AND EXERCISE REQUIREMENT SECONDARY [] NONE []3M [] 6M [] Medicare 4 months [] SPR (3M) []OTHER: ___ [x] Discussed with patient: Financial cost overview (document signed and pt given copy at new pt consult visit with surgeon), Initial appointments: Bariatric Nutrition Assessment (BNA) & Diet and Exercise (DE) Patient to look for yellow envelope in mail. This yellow envelope will contain orders for labs, testing and required clearances. Pt encouraged to complete early in program to prevent delays. Encourage blood work to be draw by 1st DE appointment. [x] Reviewed OOP cost, including: [] Optifast cost of approximately $130-140/week x weeks immediately prior to surgery - used to induce rapid weight loss which results in decrease in size of liver and therefore facilitates laparoscopically surgery approach. [x] Overview of inpatient admission benefits - estimated inpatient co-pays, deductibles and/or co-insurance - Estimated OOP costs form reviewed with patient, and copy given to patient at new pt visit. [x] Reviewed next steps with patient: 1) Scheduled at new pt surgeon visit: Fire Protection Designer (RD) for a Nutrition Assessment (BNA) and Pre-operative Diet and Exercise (DE)appointment #1. [x] Patient reminded to arrive 15 minutes early for check in. Late arrivals may need to be rescheduled. 2) Schedule: Diet and Exercise Apt #2 only scheduled after initial BNA and DE completed, 3) Behavioral Health apt scheduled after DE started. Reviewed rational and goal of Behavioral Health appointments. 4) [x] Reinforced need to cancel any WMI appointments 48 hours in advance. Cautioned NS/Same day cancellations may result in delay in program or program completion hold. Noted: DE series needs to be a monthly series or insurance company may require repeat of the entire series. 5) [x] Smoker/tobacco products including vaping: reviewed need for cessation before surgery clearance and life long abstinence after surgery for best outcomes. Patient navigation to surgery: [x] Explained to patient that average time from initial consult to date of surgery can be 6-8 months. - Process can take longer if there are cancelled appointments, delays in testing and/or additional clearances that needs to be completed. - Reviewed importance of patient active engagement in making and keeping appointments to keep the process moving. - Reinforced need to cancel appointments at least 48 hours in advance. Reviewed that instances of No Shows and Same Day Appointment Cancellations may result in program/surgery delay or hold. [x] Patient advised of importance of having voicemail and MyChart for office communications and lab/testing results before and after surgery. documented in this [facility] [place]11-13-2023 History of Present illness Narrative* Shanda Medina MA - 02/17/2023 8:40 AM EST [facility] SURGICAL WEIGHT LOSS MANAGEMENT PROGRAM PROGRESS NOTE FOLLOW UP Patient: Sloane Rinaldi Date of : 1950 Service Date: 02/17/2023 DE Visit number: 2 of 3 Pre Program Weight Metrics Date of Initial Consultation:@FLOWLAST(8961)@ Initial Weight: @FLOWLAST([id number])@ Initial BMI: @FLOWLAST([id number])@ [place] Body Weight: @FLOWLAST([id number])@ Excess Body Weight: @FLOWLAST([id number])@ Follow Up Weight Metrics Last Three Weights Including Today's Weight: Wt Readings from Last 3 Encounters: 02/17/23 261 lb (118 kg) 02/05/23 263 lb 3.2 oz (119 kg) 01/27/23 263 lb 9.6 oz (120 kg) Today's BMI: BMI: 48.51 %EBWL: % EBWL: 2% Weight Chance Since Last Visit: Weight Change: -2.6 lbs Weight Change from Initial DE/SPR Weight: Total Weight Change: -2.6 lbs Patient has the following question(s): none Falls Risk Assessment Patient doestake medications which affect BP or mental status Patient does not have newly prescribed or changed dosage of medications within past 30 days which affect BP or mental status Patient has not fallen in the past 2 months Patient does notdemonstrate unsteady gait Patient uses the following ambulatory assistive devices: none Patient states the presence of the following traits which increases risk of fall: none Patient is not on home O2 Completed by: Shanda Medina MA * Juan Cody MD - 02/17/2023 8:40 AM EST [facility] SURGICAL WEIGHT LOSS MANAGEMENT PROGRAM PHYSICIAN SUPERVISED DIET AND EXERCISE SURGICAL PREPARATORY REGIMEN - FOLLOW UP Patient is here today for follow up of their physician supervised diet and exercise in preparation for weight loss surgery Weight trend since last visit: lost 3 pounds. This patient's excess weight is causing the following co-morbid conditions at this time: severe obesity and HTN and Other pre diabetes The patient does not have any acute complaints. Physical Examination: BP (!) 154/94 Pulse 106 Ht 5' 1.5 (1.562 m) Wt 261 lb (118 kg) BMI 48.52 kg/m Awake, alert, and oriented, no apparent distress. Cardiac: regular rate and rhythm, no murmurs appreciated, HR 88 on exam No respiratory distress, no conversational dyspnea Neurologic: Intact x 4 extremities, no focal deficits notes. No slurred speech Ambulatory without assistance. Assessment of Current Diet and Exercise Current Diet Chewing slower, helps with portion control Plan: --Obesity Class III, Elevated BMI Diet and exercise (DE) Following with bariatric surgery Advised patient that they must adhere to regular monthly visits to meet the requirements of the insurance company. Additionally, they must demonstrate meal plan adoption to show readiness for the changes that will be required following surgery. Diet recommendations provided to patient verbally and in the form of handouts; they understood and agreed with plan. -Lost 50 pounds in the past with dietary modifications. Chewing slower, helps with portion control --HTN: discussed elevated BP, Ms. Rinaldi is asymptomatic, continue monitoring, follow with PCP --Pre-Diabetes, management per outpatient providers, continue lifestyle modifications --Sleep: Pulmonology clearance required prior to surgery --History of cancer 1997 - follow with outpatient providers Advised patient to continue to adhere to regular monthly visits to meet the requirements of the insurance company. Additionally, they must adopt meal plan recommendations to demonstrate readiness for the changes that will be required following surgery. Patient's eating behaviors does demonstrates adoption of eating plan recommendations. Physician diet recommendations provided to the patient. Plan of care discussed with patient, all questions answered, they agree with plan of care. Medical decision making: Patient's medical conditions place them at a moderate risk of complications, morbidity, and mortality. Patient: [x] To return in one month for follow up [] Has completed insurance required monthly diet and exercise series [] Needs to continue monthly visits until authorization/surgery date obtained. (Raf) No orders of the defined types were placed in this encounter. Current Meds Patient's Medications New Prescriptions No medications on file Previous Medications ALBUTEROL 108 (90 BASE) MCG/ACT INHALER Daily as needed. LEVOTHYROXINE (SYNTHROID, LEVOXYL) 100 MCG TABLET Take 100 mcg by mouth daily. LOSARTAN-HYDROCHLOROTHIAZIDE (HYZAAR) 50-12.5 MG TABLET Take 1 tablet by mouth before bedtime. MULTIPLE VITAMINS-IRON (MULTIPLE VITAMIN/IRON PO) Take by mouth. Modified Medications No medications on file Discontinued Medications No medications on file I reviewed all of the patient's medications and diagnoses listed in Epic. documented in this [facility] [place]11-12-2023 Hospital Discharge instructions Additional Instructions There is signs he might be developing a urinary tract infection so I prescribed antibiotics. Please follow-up with your primary care doctor this week so they can check on the urine culture.[facility] Work Phone: [phone]) 677-539911-01-2023 History of Present illness Narrative* Salma Viveros APRN - LINDA - 02/05/2023 10:10 AM EDT Visit type: New Patient. History of Present Illness: primary symptoms Pertinent negatives include no chest pain, chills, congestion, coughing, fatigue, fever or weakness. History of Present Illness: Sloane Rinaldi is a 72 y.o. female patient with significant PMH of Mild Asthma, HTN, OA, being seen for pulmonary clearance for Gastric Sleeve with Dr. Elder. Pt has hx of mild Asthma but no PFT's in the past. She reports she has a ISMA that she has used 2 mary the past yr. Her main symptoms were SOB, and she currently reports SOB with exert. She denies wheezing, coughs once or twice at night, but not regularly, MMRC 1-2. Ambulating fast + for dyspnea. She denies frequent respiratory infections and mucous. She has no other pulmonary hx. Hx of melanoma 19 yrs ago. She reports no family hx of VINAY, Stop Ban/ BMI, Neck circumference > 17, HTN, Mallampati 3, Age > 50 Snores little, no witnessed, no gasping or choking, mostly refreshed. AM- no headaches, no naps, denies feeling tired. Never smoker. No hx of DVT/ PE/ denies cardiac hx. Positive hx of Melanoma. Right arm-19 yrs ago. Baseline Exercise tolerance/MMRC score( Bold ) MMRC Dyspnea Scale Grade Description of Breathlessness 0 I only get breathless with strenuous exercise. 1 I get short of breath when hurrying on level ground or walking up a slight hill. 2 On level ground, I walk slower than people of the same age because of breathlessness, or have to stop for breath when walking at my own pace. 3 I stop for breath after walking about 100 yards or after a few minutes on level ground. 4 I am too breathless to leave the house or I am breathless when dressing. Pulmonary Functions Testing Results: No results found for: FEV1, FVC, KWD0EAS, TLC, DLCO Past Medical History: Past Medical History: Diagnosis Date Asthma Back pain Fatigue History of prediabetes Hypertension Joint pain Melanoma (HCC) Palpitations Prediabetes SOB (shortness of breath) on exertion Social History: Social History Socioeconomic History Marital status: Tobacco Use Smoking status: Never Smokeless tobacco: Never Substance and Sexual Activity Alcohol use: Yes Comment: rarely Drug use: Never Sexual activity: Not Currently Family History: Family History Problem Relation Name Age of Onset Asthma Father Cancer Sister Hypertension Brother Heart disease Brother Diabetes Brother Obesity Brother ROS: Review of Systems Constitutional: Negative for appetite change, chills, fatigue and fever. HENT: Positive for rhinorrhea. Negative for congestion, postnasal drip, trouble swallowing and voice change. Eyes: Negative. Respiratory: Positive for shortness of breath. Negative for apnea, cough and wheezing. Cardiovascular: Negative for chest pain, palpitations and leg swelling. Gastrointestinal: Negative. Endocrine: Negative. Genitourinary: Negative. Skin: Negative. Neurological: Negative for dizziness and weakness. Hematological: Negative for adenopathy. Psychiatric/Behavioral: Negative for confusion. The patient is not nervous/anxious. Medications: Outpatient Encounter Medications as of 02/05/2023 Medication Sig Dispense Refill albuterol 108 (90 Base) MCG/ACT inhaler Daily as needed. levothyroxine (Synthroid, Levoxyl) 100 MCG tablet Take 100 mcg by mouth daily. losartan-hydroCHLOROthiazide (Hyzaar) 50-12.5 MG tablet Take 1 tablet by mouth before bedtime. Multiple Vitamins-Iron (MULTIPLE VITAMIN/IRON PO) Take by mouth. No facility-administered encounter medications on file as of 02/05/2023. Allergies: Allergies Allergen Reactions Sulfa Antibiotics Hives Vital Signs: BP 110/86 Pulse 94 Resp 18 Ht 5' 1.5 (1.562 m) Wt 263 lb 3.2 oz (119 kg) SpO2 93% Comment: RA BMI 48.93 kg/m Physical Exam: Physical Exam Vitals and nursing note reviewed. Constitutional: Appearance: She is normal weight. She is not ill-appearing. HENT: Head: Normocephalic. Nose: Nose normal. Eyes: Pupils: Pupils are equal, round, and reactive to light. Cardiovascular: Rate and Rhythm: Normal rate and regular rhythm. Pulses: Normal pulses. Pulmonary: Effort: Pulmonary effort is normal. No respiratory distress. Breath sounds: No wheezing. Abdominal: General: There is no distension. Musculoskeletal: General: Normal range of motion. Cervical back: Normal range of motion. Skin: General: Skin is warm and dry. Capillary Refill: Capillary refill takes 2 to 3 seconds. Coloration: Skin is not jaundiced or pale. Neurological: General: No focal deficit present. Mental Status: She is alert and oriented to person, place, and time. Mental status is at baseline. Psychiatric: Mood and Affect: Mood normal. Behavior: Behavior normal. Thought Content: Thought content normal. Judgment: Judgment normal. Assessment and Plan: Diagnosis Plan 1. Mild intermittent asthma, unspecified whether complicated Minimal ISMA use, 2 x in the past yr, ACT- normal, no cough or wheezing, only dypsnea Continue as needed ISMA, monitor, if symptoms worsen consider PFT but not needed at this time. Mildsymptoms in the past with minimal need for rescue inhaler. 2. SOB (shortness of breath) Exertional, suspect this is mainly obesity related. But obtaining [facility] results for review. 3. Morbid obesity (HCC) BMI 48.93. Weight 263. Planning gastric sleeve. Agree with surgical plans to reduce comorbid conditions. 4. Encounter for preoperative pulmonary examination Pt moderate risk for VINAY, checking overnight oximetry, If abnormal will need PSG, but if normal should be able to clear without further w/up. 5. Hx of melanoma of skin In remission [address] at [place] this yr of lungs was normal. Obtain images. 6. Sleep disorder breathing Moderate risk for VINAY, Mallampati 3, neck > 17 , but minimal symptoms Overnight oximetry, if abnormal PSG, If normal should be able to send clearance. Follow-up: PRN unless overnight oximetry abnormal. On this date, I have spent 35 minutes reviewing previous test results and face to face with the patient discussing the diagnosis and importance of compliance with the treatment plans as well as documentation on the day of the visit. Answers submitted by the patient for this visit: Pulmonology Questionnaire (Submitted on 01/30/2023) Chief Complaint: Primary symptoms Do you have nasal congestion?: Yes Which of the following makes your symptoms worse?: pollen documented in this [facility] [place]11-01-2023 History of Present illness Narrative* HUSSAIN Muniz CNP - 02/05/2023 10:10 AM EDT Visit type: New Patient. History of Present Illness: primary symptoms Pertinent negatives include no chest pain, chills, congestion, coughing, fatigue, fever or weakness. History of Present Illness: Slonae Rinaldi is a 72 y.o. female patient with significant PMH of Mild Asthma, HTN, OA, being seen for pulmonary clearance for Gastric Sleeve with Dr. Elder. Pt has hx of mild Asthma but no PFT's in the past. She reports she has a ISMA that she has used 2 mary the past yr. Her main symptoms were SOB, and she currently reports SOB with exert. She denies wheezing, coughs once or twice at night, but not regularly, MMRC 1-2. Ambulating fast + for dyspnea. She denies frequent respiratory infections and mucous. She has no other pulmonary hx. Hx of melanoma 19 yrs ago. She reports no family hx of VINAY, Stop Ban/8 BMI, Neck circumference > 17, HTN, Mallampati 3, Age > 50 Snores little, no witnessed, no gasping or choking, mostly refreshed. AM- no headaches, no naps, denies feeling tired. Never smoker. No hx of DVT/ PE/ denies cardiac hx. Positive hx of Melanoma. Right arm-19 yrs ago. Baseline Exercise tolerance/MMRC score( Bold ) MMRC Dyspnea Scale Grade Description of Breathlessness 0 I only get breathless with strenuous exercise. 1 I get short of breath when hurrying on level ground or walking up a slight hill. 2 On level ground, I walk slower than people of the same age because of breathlessness, or have to stop for breath when walking at my own pace. 3 I stop for breath after walking about 100 yards or after a few minutes on level ground. 4 I am too breathless to leave the house or I am breathless when dressing. Pulmonary Functions Testing Results: No results found for: FEV1, FVC, VVI3DHM, TLC, DLCO Past Medical History: Past Medical History: Diagnosis Date Asthma Back pain Fatigue History of prediabetes Hypertension Joint pain Melanoma (HCC) Palpitations Prediabetes SOB (shortness of breath) on exertion Social History: Social History Socioeconomic History Marital status: Tobacco Use Smoking status: Never Smokeless tobacco: Never Substance and Sexual Activity Alcohol use: Yes Comment: rarely Drug use: Never Sexual activity: Not Currently Family History: Family History Problem Relation Name Age of Onset Asthma Father Cancer Sister Hypertension Brother Heart disease Brother Diabetes Brother Obesity Brother ROS: Review of Systems Constitutional: Negative for appetite change, chills, fatigue and fever. HENT: Positive for rhinorrhea. Negative for congestion, postnasal drip, trouble swallowing and voice change. Eyes: Negative. Respiratory: Positive for shortness of breath. Negative for apnea, cough and wheezing. Cardiovascular: Negative for chest pain, palpitations and leg swelling. Gastrointestinal: Negative. Endocrine: Negative. Genitourinary: Negative. Skin: Negative. Neurological: Negative for dizziness and weakness. Hematological: Negative for adenopathy. Psychiatric/Behavioral: Negative for confusion. The patient is not nervous/anxious. Medications: Outpatient Encounter Medications as of 02/05/2023 Medication Sig Dispense Refill albuterol 108 (90 Base) MCG/ACT inhaler Daily as needed. levothyroxine (Synthroid, Levoxyl) 100 MCG tablet Take 100 mcg by mouth daily. losartan-hydroCHLOROthiazide (Hyzaar) 50-12.5 MG tablet Take 1 tablet by mouth before bedtime. Multiple Vitamins-Iron (MULTIPLE VITAMIN/IRON PO) Take by mouth. No facility-administered encounter medications on file as of 02/05/2023. Allergies: Allergies Allergen Reactions Sulfa Antibiotics Hives Vital Signs: BP 110/86 Pulse 94 Resp 18 Ht 5' 1.5 (1.562 m) Wt 263 lb 3.2 oz (119 kg) SpO2 93% Comment: RA BMI 48.93 kg/m Physical Exam: Physical Exam Vitals and nursing note reviewed. Constitutional: Appearance: She is normal weight. She is not ill-appearing. HENT: Head: Normocephalic. Nose: Nose normal. Eyes: Pupils: Pupils are equal, round, and reactive to light. Cardiovascular: Rate and Rhythm: Normal rate and regular rhythm. Pulses: Normal pulses. Pulmonary: Effort: Pulmonary effort is normal. No respiratory distress. Breath sounds: No wheezing. Abdominal: General: There is no distension. Musculoskeletal: General: Normal range of motion. Cervical back: Normal range of motion. Skin: General: Skin is warm and dry. Capillary Refill: Capillary refill takes 2 to 3 seconds. Coloration: Skin is not jaundiced or pale. Neurological: General: No focal deficit present. Mental Status: She is alert and oriented to person, place, and time. Mental status is at baseline. Psychiatric: Mood and Affect: Mood normal. Behavior: Behavior normal. Thought Content: Thought content normal. Judgment: Judgment normal. Assessment and Plan: Diagnosis Plan 1. Mild intermittent asthma, unspecified whether complicated Minimal ISMA use, 2 x in the past yr, ACT- normal, no cough or wheezing, only dypsnea Continue as needed ISMA, monitor, if symptoms worsen consider PFT but not needed at this time. Mildsymptoms in the past with minimal need for rescue inhaler. 2. SOB (shortness of breath) Exertional, suspect this is mainly obesity related. But obtaining [facility] CT results for review. 3. Morbid obesity (HCC) BMI 48.93. Weight 263. Planning gastric sleeve. Agree with surgical plans to reduce comorbid conditions. 4. Encounter for preoperative pulmonary examination Pt moderate risk for VINAY, checking overnight oximetry, If abnormal will need PSG, but if normal should be able to clear without further w/up. 5. Hx of melanoma of skin In remission [address] at [place] this yr of lungs was normal. Obtain images. 6. Sleep disorder breathing Moderate risk for VINAY, Mallampati 3, neck > 17 , but minimal symptoms Overnight oximetry, if abnormal PSG, If normal should be able to send clearance. Addendum: Reviewed overnight oximetry. There is mild reduction and oxygen when sleeping that is most likely mild apnea and or mild obesity related hypoventilation. This most likely will self-correct with weight loss. Discussed this with patient. Suspect with 20 to 30 pounds of weight loss will correct. If weight loss is unsuccessful patient should follow-up for further workup. If patient proceedswith weight loss likely does not need any additional follow-up but we can always repeat an overnight oximetry test in the future after weight loss if patient would like. Patient is low risk for complications from bariatric weight loss surgery from pulmonary perspective and is cleared to proceed with weight loss. Follow-up: PRN unless overnight oximetry abnormal. On this date, I have spent 35 minutes reviewing previous test results and face to face with the patient discussing the diagnosis and importance of compliance with the treatment plans as well as documentation on the day of the visit. Answers submitted by the patient for this visit: Pulmonology Questionnaire (Submitted on 01/30/2023) Chief Complaint: Primary symptoms Do you have nasal congestion?: Yes Which of the following makes your symptoms worse?: pollen documented in this [facility]11-01-2023 Instructions* Patient Instructions* Christal Aguero Rai, MA - 02/05/2023 10:10 AM EDT YOUR APPOINTMENT TODAY WAS WITH THE [facility], COPD CLINIC, PULMONARY AND SLEEP MEDICINE OFFICE. PLEASE CALL OUR OFFICE AT [phone] IF YOU HAVE NOT RECEIVED YOUR TEST RESULTS 7 DAYS AFTER TESTING IS COMPLETED. PLEASE REMEMBER TO REQUEST REFILLS AT YOUR OFFICE VISITS. PHONE/FAX REQUESTS REQUIRE 48-72 HOURS FOR RESPONSE. A FRIENDLY REMINDER COPAYS ARE DUE AT TIME OF SERVICE. THANK YOU. Our Patients Are Important! We want to improve and you can help. After your visit we want you to feel: Listened to, Respected and have your health care explained. You may receive a survey asking you about your visit. Please complete the survey. We will use your feedback to make improvements. COVID-19 VACCINATION INFORMATION: . [phone] [facility]/CORONAVIRUS/VACCINE [place] [facility] [phone] [place] [facility] [phone] documented in this [facility] [place]11-01-2023 Instructions* Patient Instructions* Christal Aguero Rai, MA - 02/05/2023 10:10 AM EDT YOUR APPOINTMENT TODAY WAS WITH THE [facility], COPD CLINIC, PULMONARY AND SLEEP MEDICINE OFFICE. PLEASE CALL OUR OFFICE AT [phone] IF YOU HAVE NOT RECEIVED YOUR TEST RESULTS 7 DAYS AFTER TESTING IS COMPLETED. PLEASE REMEMBER TO REQUEST REFILLS AT YOUR OFFICE VISITS. PHONE/FAX REQUESTS REQUIRE 48-72 HOURS FOR RESPONSE. A FRIENDLY REMINDER COPAYS ARE DUE AT TIME OF SERVICE. THANK YOU. Our Patients Are Important! We want to improve and you can help. After your visit we want you to feel: Listened to, Respected and have your health care explained. You may receive a survey asking you about your visit. Please complete the survey. We will use your feedback to make improvements. COVID-19 VACCINATION INFORMATION: [facility] [phone] [facility]/CORONAVIRUS/VACCINE [place] [facility] [phone] [facility] [phone] documented in this [facility] [place]10-23-2023 History of Present illness Narrative* Shanda Medina MA - 01/27/2023 7:45 AM EDT [facility] SURGICAL WEIGHT LOSS MANAGEMENT PROGRAM SUPERVISED DIET AND EXERCISE ROOMING: INITIAL VISIT Patient: Sloane Rinaldi Date of : 1950 Service Date: 01/27/2023 Patient is here today to initiate physician-supervised diet and exercise as required by their insurance company prior to approval for weight loss surgery. This patient is alone for the evaluation today This is visit 1 of 3 required visits. Weight Metrics: (From Surgical Wet Loss Management) Today's Vital Signs: Non-Surgical Initial Eval Consult Date: 01/27/23 Initial Height: 5' 1.5 (156.2 cm) Initial Weight: 263 lb 9.6 oz (120 kg) [place] Body Weight: 122 lb (55.3 kg) Initial BMI: 48.99 Initial Body Fat %: 58.79 EBW: 141 lb (From NonSurgical Weight Loss Tracker) Falls Risk Assessment Patient does take medications which affect BP or mental status Patient does not have newly prescribed or changed dosage of medications within past 30 days which affect BP or mental status Patient has not fallen in the past 2 months Patient uses the following ambulatory assistive devices: none Patient states the presence of the following traits which increases risk of fall: none Patient is noton home O2 Completed by: Shanda Medina MA * Juan Cody MD - 01/27/2023 7:45 AM EDT [facility] SURGICAL WEIGHT LOSS MANAGEMENT PROGRAM PHYSICIAN SUPERVISED DIET AND EXERCISE SURGICAL PREPARATORY REGIMEN PROGRESS NOTE INITIAL EVALUATION Patient: Sloane Rinaldi Service Date: 01/27/2023 Date of : 1950 Navigation Plan: Patient History/Assessment Summary: The patient is a pleasant 72 y.o. year old female, who stands Height: 5' 1.5 (156.2 cm) tall with a weight of Weight: 263 lb 9.6 oz (120 kg) pounds, resulting in a BMI of Body mass index is 49 kg/m . kg/m2. They have been overweight for years, have tried and failed multiple previous diet attempts,and is now in the process of undergoing evaluation for surgical treatment of their severe obesity and HTN and Other pre diabetes . They are here today to initiate monthly physician supervised diet and exercise as part of their surgical preparatory regimen. The patient does not have any acute complaints. History: Past Medical History: Diagnosis Date Asthma Back pain Fatigue History of prediabetes Hypertension Joint pain Melanoma (HCC) Palpitations Prediabetes SOB (shortness of breath) on exertion Past Surgical History: Procedure Laterality Date EXTREMITY SURGERY 1994 OTHER SURGICAL HISTORY 1997 rt arm melanoma Family History Problem Relation Name Age of Onset Asthma Father Cancer Sister Hypertension Brother Heart disease Brother Diabetes Brother Obesity Brother Social History Tobacco Use Smoking status: Never Smokeless tobacco: Never Substance Use Topics Alcohol use: Yes Comment: rarely Current Meds Patient's Medications New Prescriptions No medications on file Previous Medications ALBUTEROL 108 (90 BASE) MCG/ACT INHALER Daily as needed. LEVOTHYROXINE (SYNTHROID, LEVOXYL) 100 MCG TABLET Take 100 mcg by mouth daily. LOSARTAN-HYDROCHLOROTHIAZIDE (HYZAAR) 50-12.5 MG TABLET Take 1 tablet by mouth before bedtime. MULTIPLE VITAMINS-IRON (MULTIPLE VITAMIN/IRON PO) Take by mouth. Modified Medications No medications on file Discontinued Medications No medications on file This patient's excess weight is causing the following co-morbid conditions at this time:HTN and Other pre diabetes Initial Diet & Exercise/SPR Visit Weight Metrics: Date of Initial Diet & Exercise Visit: Consult Date: 01/27/23 Initial Weight: Initial Weight: 263 lb 9.6 oz (120 kg) Initial BMI: Initial BMI: 48.99 [place] Body Weight: [place] Body Weight: 122 lb (55.3 kg) Excess Body Weight: EBW: 141 lb Physical Examination: BP 100/64 Pulse 108 Ht 5' 1.5 (1.562 m) Wt 263 lb 9.6 oz (120 kg) BMI 49.00 kg/m General: Alert and oriented x 4, obese, no distress. normocephalic and atraumatic Cardiac: Regular rate and rhythm without evidence of murmur, HR 92 on exam Respiratory: Clear to auscultation bilaterally; No evidence of respiratory distress Musculoskeletal: No edema of extremities, ambulatory without assistance Neurological: Intact x 4 extremities, nonfocal neurologic exam, no focal deficits noted. Current Diet Sugar free vanilla in coffee Water (8-10 glasses daily) Reviewed PAST DIET HISTORY FORM and CURRENT DIET HISTORY FORM with patient (located in [employer]) I reviewed all of the patient's medications and diagnoses listed in Epic. Current Eating Behaviors This patients demonstrates the following behaviors as they relate to eatin-2x nightly snack Eats approximately 4 times per day. Plan: --Obesity Class III, Elevated BMI Diet and exercise (DE) Following with bariatric surgery Advised patient that they must adhere to regular monthly visits to meet the requirements of the insurance company. Additionally, they must demonstrate meal plan adoption to show readiness for the changes that will be required following surgery. Diet recommendations provided to patient verbally and in the form of handouts; they understood and agreed with plan. -Discussed cessation of the following prior to and after surgery: carbonation, caffeine, NSAIDs, alcohol, tobacco. Patient understood and agreed. -Lost 50 pounds in the past with dietary modifications. --HTN: stable, continue treatment per outpatient providers, Discussed blood pressure could decreasewith weight loss, potentially resulting in dizziness/lightheadedness (which can result in fall/injury). Patient understood. Adequate hydration and follow up with PCP for abnormal blood pressures and p ossible medication adjustments discussed - patient understood and agreed. --Pre-Diabetes, management per outpatient providers, continue lifestyle modifications, discussed blood glucose could decrease with weight loss. Patient understood. They are aware of symptoms of hypoglycemia and treatment of hypoglycemia. Patient will follow up with their outpatient providers for dilip betes management and possible adjustment of medications. --Sleep: Pulmonology clearance required prior to surgery --History of cancer 1998 - follow with outpatient providers Plan of care discussed with patient, all questions answered, they agree with plan of care. Medical decision making: Patient's medical conditions place them at a moderate risk of complications, morbidity, and mortality. Patient to return for follow up in one month. No orders of the defined types were placed in this encounter. Juan Cody MD 01/27/2023 7:43 AM documented in this [facility] [place]10-06-2023 History of Present illness Narrative* Ana Valentin RD - 01/10/2023 10:00 AM EDT [facility] BARIATRIC NUTRITION ASSESSMENT / DIET & EXERCISE SURGICAL WEIGHT LOSS MANAGEMENT PROGRAM Date: 01/10/23 Patient Name: Sloane Rinaldi Date of : 1950 Type of Assessment: [x] Surgical Patient - Pre-op Initial Assessment Weight Metrics: Today's Height: 5' 1.5 (1.562 m) Today's Weight: 262 lb 12.8 oz (119 kg) Today's BMI: Body mass index is 48.85 kg/m . Surgeon: Dr. Elder Surgical Procedure: [x] Sleeve Gastrectomy Preop Diet: 2 wks Medical History: Past Medical History: Diagnosis Date Asthma Back pain Fatigue History of prediabetes Hypertension Joint pain Melanoma (HCC) Palpitations Prediabetes SOB (shortness of breath) on exertion Current Medications: has a current medication list which includes the following prescription(s): albuterol, levothyroxine, and losartan-hydrochlorothiazide. Weight History Patient has been considering weight loss surgery for 6 months (daughter in law had LSG) Primary reason(s) for weight loss decrease pain; improve mobility and QUL Number of years over weight > 10 PREVIOUS WEIGHT LOSS ATTEMPTS Method When Amount lost Amount regained Most successful Diet/no eating out 3 year ago 50 lb all Post Weight Loss Surgery- Type: Patient's current diet quality, relative to the Past weight loss surgery diet is: [x] N/A CURRENT MEAL PLANNING Self Spouse Significant Other Meals planned by X X Food shopping done by X X Meals cooked by X X EXERCISE/CURRENT ACTIVITY No exercise; active with ADLs CURRENT EATING HABITS/ADDITIONAL INFORMATION 24 Hour Recall completed: Yes Breakfast: Iced coffee 16 oz + peñaloza/egg/cheese [employer] Lunch: wheat bread x2-ls turkey/cheese; applesauce; water Dinner: chicken salad sw or pizza; water Snack: small bags Oreo cookies 1x/night, if in house Drinks: 8-10 glasses water per day; no juice; no pop; occasional ETOH SUPPORT SYSTEM A. Family knowledgeable about/supportive of plans for weight loss surgery: Yes B. Patient understands that they must have someone in their home 28/10 for the first week following surgery, or that they must be able to stay with someone for the first week Yes C. Co-workers knowledgeable about/supportive of plans for weight loss surgery: Yes KNOWLEDGE AND EDUCATION ASSESSMENT AND PLAN Patient's level of knowledge regarding the changes that will have to be made in their diet following weight loss surgery is: [x] Excellent - patient is well informed. Current eating practices that will require change with surgery: Caffeine and pace of eating RECOMMENDATIONS AND PLAN [x] Educational Materials Provided [x]Strategies for Eating handout given to and discussed with patient [x] Patient cleared for weight loss surgery Patient able to state major diet changes that need to be made following surgery Patient states/demonstrates readiness to make necessary diet changes Diagnoses: HTN Note: Pt presents for initial BNA. D/E to begin 01/27/2023-3M. Per diet recall and pt interview, pt does not skip meals and includes protein q meal/snack. Pt drinks some caffeinated coffee in am; otherwise water throughout the day. Currently active with ADLs, no formal exercise. Labs N/A-will monitor. Reviewed BNA packet and rationale for post-op bariatric diet protocol. Pt agreeable to, and aided in developing, the goals as noted below. Pt cleared by nutrition for WLS. Pt informed at time of visit. Goals: Eventually switch to decaf coffee Slow down at meal time Materials Provided: BNA packet Non-starchy vs starchy food list Follow up: PRN Pt encouraged to call/MyChart with questions. Bariatric Nutrition Assessment completed by: Ana Valentin RD documented in this [facility] [place]09-25-2023 Telephone encounter Note* Telephone Encounter - Heidy Graves LPN - 12/30/2022 2:44 PM EDT Pre op cheklist scanned to media, orders mailed. [facility] [id number] Miscellaneous Notes* Telephone Encounter - Heidy Graves LPN - 12/30/2022 2:44 PM EDT Pre op cheklist scanned to media, orders mailed. * Addendum Note - Tanika Ragsdale NP - 12/25/2022 1:57 PM EDTAddended by: TANIKA RAGSDALE on: 12/25/2022 01:57 PM Modules accepted: Orders * Telephone Encounter - Tanika Ragsdale NP - 12/25/2022 1:57 PM EDT Orders signed. Checklist completed. * Telephone Encounter - Tanika Ragsdale NP - 12/25/2022 1:52 PM EDT I have recommended proceeding with the evaluation and work-up for the primary procedure as outlinedbelow: Dr. Elder PATIENT SUMMARY Sloane Rinaldi 72 y.o. female with Body mass index is 48.44 kg/m . Laparoscopic Sleeve Gastrectomy and Laparoscopic Liver Biopsy DM[] HTN[x] VINAY[] GERD[] HL[] OA[x] Date of Surgery: TBD Bryan Barboza INITIAL TESTING RESULTS Labwork [x] CMP, TSH, Fasting Lipid Profile, Mg, Zinc, Vit B1 (whole blood), Vit B12, 25-OH Vit D, Fe, Ferritin, Folate Tobacco [] Serum Nicotine / Cotinine [] Negative [] Positive PLEASE ADD SERUM NICOTINE/COTININE WITH INITIAL LABS ON ALL LRYGB PROCEDURES EGD [] Dx: [] GERD [x] Dyspepsia [] Other Pathology [x] H. pylori [] Negative [] Positive UGI [x] [] not ordered US Abdomen [] [] not ordered VINAY eval [] [] On CPAP / Obtain settings Hematology [] [] Hypercoagulation panel Toxicology [] [] Urine drug screen [] EtOH screen Addtional [x] [x] Hgb A1c INITIAL CONSULTATIONS CLEARANCE / MANAGEMENT Psychology [x] Dr. Suárez [x] Cardiology [x] Dr. Garner Box Turner during recent hospitalization in October Pulmonary [x] Dr. Rollins [] []Heme/Onc []Psychiatry []Pain mgmt PSD [x] Physician supervised diet: []None [x]3 mos []6 mos Preop diet [x] Preop low calorie diet: []None []1 wk [x]2 wks FINAL PRE-OP TESTING RESULTS Labwork [x] [x]Pre-op CBC [x]BMP []Serum Nicotine / Cotinine EKG [x] CXR [x] POST-OP MEDICATIONS Ulcer Ppx [] Omeprazole 20 mg PO []QD []BID Gallstone Ppx [] Ursodiol 300 mg []BID DVT Ppx [x] DVT prophylaxis per final preop visit estimated risk Estimated calculated risk: % Schedule final pre-operative office visit with surgeon, pre-operative education class, and pre-operative exercise class prior to date of surgery ATTESTATION I reviewed with the patient the details of the proposed operation. The risks benefits and options were discussed. Risks included but were not limited to bleeding, infection, damage to other surrounding organs, cardio-pulmonary complications related to anesthesia, conversion from laparoscopic to andopen procedure, the need for reoperative or endoscopic therapy, the potential for prolonged mechanical ventilation, and . All questions were fully answered to the patient's satisfaction and theywish to proceed with surgical intervention. Greater than 51% of the 45 minute visit was spent as face to face encounter, counseling the patientand discussing the risks,benefits and options of surgery as well as the perioperative care plan. The patient was seen and examined independently and relevant data including a full chart rreview was performed by myself. Patient Care Team: Bryan Barboza as PCP - General (Family Medicine) Josef Elder MD as Surgeon (General Surgery) * Telephone Encounter - Claudia Jenkins - 12/24/2022 12:24 PM EDT Initial New [facility] surgical patient Navigation & Financial Counseling Discussion Patient Communication: In office SURGEON: [] ANNALISE [] AD [] MP [x] TB [] LM PROCEDURE: [] LRYGB [] LSG [] СВЕТЛАНА-S [] СВЕТЛАНА [] UNDECIDED [] REV: SPECIFY: Confirmed pt wants to continue with surgical program/plan [] YES [] NO (complete program withdrawalnote/process) CO-MORBIDS: [] NONE [] DM []HTN [] VINAY []GERD [] OTH: PRIVATE PAY: [] NO []YES DATE OF INITIAL BENEFITS VERIFICATION: TRANSFER FU: [] YES [] NO PRIMARY INSURANCE: Payor: MEDICARE / Plan: MEDICARE PART A AND B / Product Type: Medicare / BENEFIT ON PLAN: [] NO [] YES BENEFIT MAX: [] NO [] YES -- BENEFIT MAX: $ EMPLOYER: DIET AND EXERCISE (DE) REQUIREMENT PRIMARY [] NONE [x]3M [] 6M []9M [] Medicare 4 Months [] SPR (3M) []OTHER: SECONDARY INSURANCE: BENEFIT ON PLAN: [] NO [] YES BENEFIT MAX: [] NO [] YES -- BENEFIT MAX: $ AUTH REQUIRED FROM SECONDARY [] NO [] YES DIET AND EXERCISE REQUIREMENT SECONDARY [] NONE []3M [] 6M [] Medicare 4 months [] SPR (3M) []OTHER: ___ [x] Discussed with patient: Financial cost overview (document signed and pt given copy at new pt consult visit with surgeon), Initial appointments: Bariatric Nutrition Assessment (BNA) & Diet and Exercise (DE) Patient to look for yellow envelope in mail. This yellow envelope will contain orders for labs, testing and required clearances. Pt encouraged to complete early in program to prevent delays. Encourage blood work to be draw by 1st DE appointment. [x] Reviewed OOP cost, including: [] Optifast cost of approximately $130-140/week x weeks immediately prior to surgery - used to induce rapid weight loss which results in decrease in size of liver and therefore facilitates laparoscopically surgery approach. [x] Overview of inpatient admission benefits - estimated inpatient co-pays, deductibles and/or co-insurance - Estimated OOP costs form reviewed with patient, and copy given to patient at new pt visit. [x] Reviewed next steps with patient: 1) Scheduled at new pt surgeon visit: Fire Protection Designer (RD) for a Nutrition Assessment (BNA) and Pre-operative Diet and Exercise (DE)appointment #1. [x] Patient reminded to arrive 15 minutes early for check in. Late arrivals may need to be rescheduled. 2) Schedule: Diet and Exercise Apt #2 only scheduled after initial BNA and DE completed, 3) Behavioral Health apt scheduled after DE started. Reviewed rational and goal of Behavioral Health appointments. 4) [x] Reinforced need to cancel any WMI appointments 48 hours in advance. Cautioned NS/Same day cancellations may result in delay in program or program completion hold. Noted: DE series needs to be a monthly series or insurance company may require repeat of the entire series. 5) [x] Smoker/tobacco products including vaping: reviewed need for cessation before surgery clearance and life long abstinence after surgery for best outcomes. Patient navigation to surgery: [x] Explained to patient that average time from initial consult to date of surgery can be 6-8 months. - Process can take longer if there are cancelled appointments, delays in testing and/or additional clearances that needs to be completed. - Reviewed importance of patient active engagement in making and keeping appointments to keep the process moving. - Reinforced need to cancel appointments at least 48 hours in advance. Reviewed that instances of No Shows and Same Day Appointment Cancellations may result in program/surgery delay or hold. [x] Patient advised of importance of having voicemail and MyChart for office communications and lab/testing results before and after surgery. documented in this encounterSOhio[facility] Doctors [id number] Note* Addendum Note - Tanika Ragsdale NP - 12/25/2022 1:57 PM EDTAddended by: TANIKA RAGSDALE on: 12/25/2022 01:57 PM Modules accepted: Orders [place] [id number] Note* Addendum Note - Tanika Ragsdale NP - 12/25/2022 1:57 PM EDTAddended by: TANIKA RAGSDALE on: 12/25/2022 01:57 PM Modules accepted: Orders [facility] [id number] Note* Addendum Note - Tanika Ragsdale NP - 12/25/2022 1:57 PM EDTAddended by: TANIKA RAGSDALE on: 12/25/2022 01:57 PM Modules accepted: Orders [place] [id number] Note* Addendum Note - Tanika Ragsdale NP - 12/25/2022 1:57 PM EDTAddended by: TANIKA RAGSDALE on: 12/25/2022 01:57 PM Modules accepted: Orders [place] [id number] Note* Addendum Note - Tanika Ragsdale NP - 12/25/2022 1:57 PM EDTAddended by: TANIKA RAGSDALE on: 12/25/2022 01:57 PM Modules accepted: Orders [id number] Note* Addendum Note - Tanika Ragsdale NP - 12/25/2022 1:57 PM EDTAddended by: TANIKA RAGSDALE on: 12/25/2022 01:57 PM Modules accepted: Orders [place] [id number] Note* Addendum Note - Tanika Ragsdale NP - 12/25/2022 1:57 PM EDTAddended by: TANIKA RAGSDALE on: 12/25/2022 01:57 PM Modules accepted: Orders [place] [id number] Note* Addendum Note - Tanika Ragsdale NP - 12/25/2022 1:57 PM EDTAddended by: TANIKA RAGSDALE on: 12/25/2022 01:57 PM Modules accepted: Orders [id number] Telephone encounter Note* Telephone Encounter - Tanika Ragsdale NP - 12/25/2022 1:57 PM EDT Orders signed. Checklist completed. [id number] Miscellaneous Notes* Addendum Note - Tanika Ragsdale NP - 12/25/2022 1:57 PM EDTAddended by: TANIKA RAGSDALE on: 12/25/2022 01:57 PM Modules accepted: Orders * Telephone Encounter - Tanika Ragsdale NP - 12/25/2022 1:57 PM EDT Orders signed. Checklist completed. * Telephone Encounter - Tanika Ragsdale NP - 12/25/2022 1:52 PM EDT I have recommended proceeding with the evaluation and work-up for the primary procedure as outlinedbelow: Dr. Elder PATIENT SUMMARY Sloane Rinaldi 72 y.o. female with Body mass index is 48.44 kg/m . Laparoscopic Sleeve Gastrectomy and Laparoscopic Liver Biopsy DM[] HTN[x] VINAY[] GERD[] HL[] OA[x] Date of Surgery: TBD Bryan Barboza INITIAL TESTING RESULTS Labwork [x] CMP, TSH, Fasting Lipid Profile, Mg, Zinc, Vit B1 (whole blood), Vit B12, 25-OH Vit D, Fe, Ferritin, Folate Tobacco [] Serum Nicotine / Cotinine [] Negative [] Positive PLEASE ADD SERUM NICOTINE/COTININE WITH INITIAL LABS ON ALL LRYGB PROCEDURES EGD [] Dx: [] GERD [x] Dyspepsia [] Other Pathology [x] H. pylori [] Negative [] Positive UGI [x] [] not ordered US Abdomen [] [] not ordered VINAY eval [] [] On CPAP / Obtain settings Hematology [] [] Hypercoagulation panel Toxicology [] [] Urine drug screen [] EtOH screen Addtional [x] [x] Hgb A1c INITIAL CONSULTATIONS CLEARANCE / MANAGEMENT Psychology [x] Dietitityrone [x] Cardiology [x] Dr. Garner Box Turner during recent hospitalization in October Pulmonary [x] Others [] []Heme/Onc []Psychiatry []Pain mgmt PSD [x] Physician supervised diet: []None [x]3 mos []6 mos Preop diet [x] Preop low calorie diet: []None []1 wk [x]2 wks FINAL PRE-OP TESTING RESULTS Labwork [x] [x]Pre-op CBC [x]BMP []Serum Nicotine / Cotinine EKG [x] CXR [x] POST-OP MEDICATIONS Ulcer Ppx [] Omeprazole 20 mg PO []QD []BID Gallstone Ppx [] Ursodiol 300 mg []BID DVT Ppx [x] DVT prophylaxis per final preop visit estimated risk Estimated calculated risk: % Schedule final pre-operative office visit with surgeon, pre-operative education class, and pre-operative exercise class prior to date of surgery ATTESTATION I reviewed with the patient the details of the proposed operation. The risks benefits and options were discussed. Risks included but were not limited to bleeding, infection, damage to other surrounding organs, cardio-pulmonary complications related to anesthesia, conversion from laparoscopic to andopen procedure, the need for reoperative or endoscopic therapy, the potential for prolonged mechanical ventilation, and . All questions were fully answered to the patient's satisfaction and theywish to proceed with surgical intervention. Greater than 51% of the 45 minute visit was spent as face to face encounter, counseling the patientand discussing the risks,benefits and options of surgery as well as the perioperative care plan. The patient was seen and examined independently and relevant data including a full chart rreview was performed by myself. Patient Care Team: Bryan Barboza as PCP - General (Family Medicine) Josef Elder MD as Surgeon (General Surgery) * Telephone Encounter - Claudia Jenkins - 12/24/2022 12:24 PM EDT Initial New [facility] surgical patient Navigation & Financial Counseling Discussion Patient Communication: In office SURGEON: [] JZ [] AD [] MP [x] TB [] LM PROCEDURE: [] LRYGB [] LSG [] СВЕТЛАНА-S [] СВЕТЛАНА [] UNDECIDED [] REV: SPECIFY: Confirmed pt wants to continue with surgical program/plan [] YES [] NO (complete program withdrawalnote/process) CO-MORBIDS: [] NONE [] DM []HTN [] VINAY []GERD [] OTH: PRIVATE PAY: [] NO []YES DATE OF INITIAL BENEFITS VERIFICATION: TRANSFER FU: [] YES [] NO PRIMARY INSURANCE: Payor: MEDICARE / Plan: MEDICARE PART A AND B / Product Type: Medicare / BENEFIT ON PLAN: [] NO [] YES BENEFIT MAX: [] NO [] YES -- BENEFIT MAX: $ EMPLOYER: DIET AND EXERCISE (DE) REQUIREMENT PRIMARY [] NONE [x]3M [] 6M []9M [] Medicare 4 Months [] SPR (3M) []OTHER: SECONDARY INSURANCE: BENEFIT ON PLAN: [] NO [] YES BENEFIT MAX: [] NO [] YES -- BENEFIT MAX: $ AUTH REQUIRED FROM SECONDARY [] NO [] YES DIET AND EXERCISE REQUIREMENT SECONDARY [] NONE []3M [] 6M [] Medicare 4 months [] SPR (3M) []OTHER: ___ [x] Discussed with patient: Financial cost overview (document signed and pt given copy at new pt consult visit with surgeon), Initial appointments: Bariatric Nutrition Assessment (BNA) & Diet and Exercise (DE) Patient to look for yellow envelope in mail. This yellow envelope will contain orders for labs, testing and required clearances. Pt encouraged to complete early in program to prevent delays. Encourage blood work to be draw by 1st DE appointment. [x] Reviewed OOP cost, including: [] Optifast cost of approximately $130-140/week x weeks immediately prior to surgery - used to induce rapid weight loss which results in decrease in size of liver and therefore facilitates laparoscopically surgery approach. [x] Overview of inpatient admission benefits - estimated inpatient co-pays, deductibles and/or co-insurance - Estimated OOP costs form reviewed with patient, and copy given to patient at new pt visit. [x] Reviewed next steps with patient: 1) Scheduled at new pt surgeon visit: Fire Protection Designer (RD) for a Nutrition Assessment (BNA) and Pre-operative Diet and Exercise (DE)appointment #1. [x] Patient reminded to arrive 15 minutes early for check in. Late arrivals may need to be rescheduled. 2) Schedule: Diet and Exercise Apt #2 only scheduled after initial BNA and DE completed, 3) Behavioral Health apt scheduled after DE started. Reviewed rational and goal of Behavioral Health appointments. 4) [x] Reinforced need to cancel any WMI appointments 48 hours in advance. Cautioned NS/Same day cancellations may result in delay in program or program completion hold. Noted: DE series needs to be a monthly series or insurance company may require repeat of the entire series. 5) [x] Smoker/tobacco products including vaping: reviewed need for cessation before surgery clearance and life long abstinence after surgery for best outcomes. Patient navigation to surgery: [x] Explained to patient that average time from initial consult to date of surgery can be 6-8 months. - Process can take longer if there are cancelled appointments, delays in testing and/or additional clearances that needs to be completed. - Reviewed importance of patient active engagement in making and keeping appointments to keep the process moving. - Reinforced need to cancel appointments at least 48 hours in advance. Reviewed that instances of No Shows and Same Day Appointment Cancellations may result in program/surgery delay or hold. [x] Patient advised of importance of having voicemail and MyChart for office communications and lab/testing results before and after surgery. documented in this [facility] [id number] Telephone encounter Note* Telephone Encounter - Tanika Ragsdale NP - 12/25/2022 1:52 PM EDT I have recommended proceeding with the evaluation and work-up for the primary procedure as outlinedbelow: Dr. Elder PATIENT SUMMARY Sloane Rinaldi 72 y.o. female with Body mass index is 48.44 kg/m . Laparoscopic Sleeve Gastrectomy and Laparoscopic Liver Biopsy DM[] HTN[x] VINAY[] GERD[] HL[] OA[x] Date of Surgery: TBD Bryan Barboza INITIAL TESTING RESULTS Labwork [x] CMP, TSH, Fasting Lipid Profile, Mg, Zinc, Vit B1 (whole blood), Vit B12, 25-OH Vit D, Fe, Ferritin, Folate Tobacco [] Serum Nicotine / Cotinine [] Negative [] Positive PLEASE ADD SERUM NICOTINE/COTININE WITH INITIAL LABS ON ALL LRYGB PROCEDURES EGD [] Dx: [] GERD [x] Dyspepsia [] Other Pathology [x] H. pylori [] Negative [] Positive UGI [x] [] not ordered US Abdomen [] [] not ordered VINAY eval [] [] On CPAP / Obtain settings Hematology [] [] Hypercoagulation panel Toxicology [] [] Urine drug screen [] EtOH screen Addtional [x] [x] Hgb A1c INITIAL CONSULTATIONS CLEARANCE / MANAGEMENT Psychology [x] Dietitian [x] Cardiology [x] Saw Box Turner during recent hospitalization in October Pulmonary [x] Others [] []Heme/Onc []Psychiatry []Pain mgmt PSD [x] Physician supervised diet: []None [x]3 mos []6 mos Preop diet [x] Preop low calorie diet: []None []1 wk [x]2 wks FINAL PRE-OP TESTING RESULTS Labwork [x] [x]Pre-op CBC [x]BMP []Serum Nicotine / Cotinine EKG [x] CXR [x] POST-OP MEDICATIONS Ulcer Ppx [] Omeprazole 20 mg PO []QD []BID Gallstone Ppx [] Ursodiol 300 mg []BID DVT Ppx [x] DVT prophylaxis per final preop visit estimated risk Estimated calculated risk: % Schedule final pre-operative office visit with surgeon, pre-operative education class, and pre-operative exercise class prior to date of surgery ATTESTATION I reviewed with the patient the details of the proposed operation. The risks benefits and options were discussed. Risks included but were not limited to bleeding, infection, damage to other surrounding organs, cardio-pulmonary complications related to anesthesia, conversion from laparoscopic to andopen procedure, the need for reoperative or endoscopic therapy, the potential for prolonged mechanical ventilation, and . All questions were fully answered to the patient's satisfaction and theywish to proceed with surgical intervention. Greater than 51% of the 45 minute visit was spent as face to face encounter, counseling the patientand discussing the risks,benefits and options of surgery as well as the perioperative care plan. The patient was seen and examined independently and relevant data including a full chart rreview was performed by myself. Patient Care Team: Bryan Barboza as PCP - General (Family Medicine) Josef Elder MD as Surgeon (General Surgery) Heide [id number] Telephone encounter Note* Telephone Encounter - Claudia Jenkins - 12/24/2022 12:24 PM EDT Initial New [facility] surgical patient Navigation & Financial Counseling Discussion Patient Communication: In office SURGEON: [] ANNALISE [] AD [] MP [x] TB [] LM PROCEDURE: [] LRYGB [] LSG [] СВЕТЛАНА-S [] СВЕТЛАНА [] UNDECIDED [] REV: SPECIFY: Confirmed pt wants to continue with surgical program/plan [] YES [] NO (complete program withdrawalnote/process) CO-MORBIDS: [] NONE [] DM []HTN [] VIANY []GERD [] OTH: PRIVATE PAY: [] NO []YES DATE OF INITIAL BENEFITS VERIFICATION: TRANSFER FU: [] YES [] NO PRIMARY INSURANCE: Payor: MEDICARE / Plan: MEDICARE PART A AND B / Product Type: Medicare / BENEFIT ON PLAN: [] NO [] YES BENEFIT MAX: [] NO [] YES -- BENEFIT MAX: $ EMPLOYER: DIET AND EXERCISE (DE) REQUIREMENT PRIMARY [] NONE [x]3M [] 6M []9M [] Medicare 4 Months [] SPR (3M) []OTHER: SECONDARY INSURANCE: BENEFIT ON PLAN: [] NO [] YES BENEFIT MAX: [] NO [] YES -- BENEFIT MAX: $ AUTH REQUIRED FROM SECONDARY [] NO [] YES DIET AND EXERCISE REQUIREMENT SECONDARY [] NONE []3M [] 6M [] Medicare 4 months [] SPR (3M) []OTHER: ___ [x] Discussed with patient: Financial cost overview (document signed and pt given copy at new pt consult visit with surgeon), Initial appointments: Bariatric Nutrition Assessment (BNA) & Diet and Exercise (DE) Patient to look for yellow envelope in mail. This yellow envelope will contain orders for labs, testing and required clearances. Pt encouraged to complete early in program to prevent delays. Encourage blood work to be draw by 1st DE appointment. [x] Reviewed OOP cost, including: [] Optifast cost of approximately $130-140/week x weeks immediately prior to surgery - used to induce rapid weight loss which results in decrease in size of liver and therefore facilitates laparoscopically surgery approach. [x] Overview of inpatient admission benefits - estimated inpatient co-pays, deductibles and/or co-insurance - Estimated OOP costs form reviewed with patient, and copy given to patient at new pt visit. [x] Reviewed next steps with patient: 1) Scheduled at new pt surgeon visit: Fire Protection Designer (RD) for a Nutrition Assessment (BNA) and Pre-operative Diet and Exercise (DE)appointment #1. [x] Patient reminded to arrive 15 minutes early for check in. Late arrivals may need to be rescheduled. 2) Schedule: Diet and Exercise Apt #2 only scheduled after initial BNA and DE completed, 3) Behavioral Health apt scheduled after DE started. Reviewed rational and goal of Behavioral Health appointments. 4) [x] Reinforced need to cancel any WMI appointments 48 hours in advance. Cautioned NS/Same day cancellations may result in delay in program or program completion hold. Noted: DE series needs to be a monthly series or insurance company may require repeat of the entire series. 5) [x] Smoker/tobacco products including vaping: reviewed need for cessation before surgery clearance and life long abstinence after surgery for best outcomes. Patient navigation to surgery: [x] Explained to patient that average time from initial consult to date of surgery can be 6-8 months. - Process can take longer if there are cancelled appointments, delays in testing and/or additional clearances that needs to be completed. - Reviewed importance of patient active engagement in making and keeping appointments to keep the process moving. - Reinforced need to cancel appointments at least 48 hours in advance. Reviewed that instances of No Shows and Same Day Appointment Cancellations may result in program/surgery delay or hold. [x] Patient advised of importance of having voicemail and MyChart for office communications and lab/testing results before and after surgery. [facility] [id number] History of Present illness Narrative* Josef Elder MD - 12/24/2022 11:00 AM EDT BARIATRIC AND METABOLIC SURGERY [facility] INITIAL EVALUATION - HISTORY AND PHYSICAL 12/24/22 PATIENT: Sloane Rinaldi DATE OF : 1950 HISTORY OF PRESENT ILLNESS Chief Complaint: Morbid Obesity and associated comorbid conditions. Sloane Rinaldi is a 72 y.o. female with morbid obesity and associated comorbid conditions who [facility] for bariatric surgery. The patient stands Height: 5' 1.5 (156.2 cm) ([facility] CHK) tall with a weight of Weight: 260 lb 9.6 oz (118 kg) , and has a BMI of Body mass index is 48.44 kg/m .. The patient has failed multiple attempts at non-surgical weight loss, and is now seeking surgical intervention to promote permanent and consistent weight loss. The patient suffers from multiple co-morbidities as a result of morbid obesity as outlined in the past medical history. The patient denies a history of myocardia infarction, deep vein thrombosis, pulmonary embolism, renal failure, hepatic failure, stroke, and seizure. She does not smoke, and does not drink alcohol. Denies GERD. Denies admit to hospital for psych concern in last 12 months. Review of Systems Constitutional: Negative for fatigue and fever. HENT: Negative for congestion, rhinorrhea and trouble swallowing. Respiratory: Negative for cough, chest tightness and shortness of breath. Cardiovascular: Negative for chest pain, palpitations and leg swelling. Gastrointestinal: Negative for abdominal distention, abdominal pain, blood in stool, constipation, diarrhea and nausea. Genitourinary: Negative for dysuria, flank pain, frequency and urgency. Musculoskeletal: Positive for arthralgias. Negative for back pain and myalgias. Skin: Negative for color change and rash. Neurological: Negative for light-headedness and headaches. Psychiatric/Behavioral: Negative for dysphoric mood. The patient is not nervous/anxious. PAST HISTORIES Past Medical History: Diagnosis Date Asthma Back pain Fatigue History of prediabetes Hypertension Joint pain Melanoma (HCC) Palpitations Prediabetes SOB (shortness of breath) on exertion Past Surgical History: Procedure Laterality Date EXTREMITY SURGERY 1994 OTHER SURGICAL HISTORY 1997 rt arm melanoma Family History Problem Relation Name Age of Onset Asthma Father Cancer Sister Hypertension Brother Heart disease Brother Diabetes Brother Obesity Brother Social History Tobacco Use Smoking status: Never Smokeless tobacco: Never Substance Use Topics Alcohol use: Yes Comment: rarely Patient's Medications New Prescriptions No medications on file Previous Medications ALBUTEROL 108 (90 BASE) MCG/ACT INHALER Daily as needed. LEVOTHYROXINE (SYNTHROID, LEVOXYL) 100 MCG TABLET Take 100 mcg by mouth daily. LOSARTAN-HYDROCHLOROTHIAZIDE (HYZAAR) 50-12.5 MG TABLET Take 1 tablet by mouth before bedtime. Modified Medications No medications on file Discontinued Medications No medications on file Allergies Allergen Reactions Sulfa Antibiotics Hives PHYSICAL EXAM BP 136/83 Pulse 101 Temp 36.3 C (97.3 F) Resp 16 Ht 5' 1.5 (1.562 m) Comment: [facility] HGT CHK Wt 260 lb 9.6 oz (118 kg) BMI 48.44 kg/m General: This patient is awake, alert, and oriented, with normal affect and is in no apparent distress. Cardiac: Regular rate and rhythm without evidence of murmur. Respiratory: Clear to auscultation bilaterally with normal effort. Abdomen: Obese, soft, non-tender, non-distended without masses/ No evidence of abdominal hernia / Incisions consistent with previous surgeries. Head and Neck: Obese, normocephalic and atraumatic/soft and supple, no lymphadenopathy or obvious bruits. No thyroidmegaly. Extremities: No cyanosis, clubbing or edema/ No calf tenderness/No restrictions of movement, is ambulatory without assistance. Neurological: Intact x 4 extremities, normal sensation, no focal deficits notes. Skin: Skin cool, warm and dry. No rashes or lesions noted. Rectal: Deferred LABORATORY STUDIES Laboratory Studies: No results for input(s): NA, K, CL, CO2, BUN, CREATININE, GLUCOSE, CALCIUM in the last 72 hours. No results for input(s): WBC, RBC, HGB, HCT, MCV, MCH, MCHC, RDW, PLT, MPV in the last 72 hours. No results for input(s): ALKPHOS, ALT, AST, PROT, BILITOT, BILIDIR, LIPASE in the last 72 hours. No lab exists for component: LABALBU ASSESSMENT Based on today's evaluation, the patient is a candidate for surgery. She chose the procedure as documented below in the plan. In anticipation of weight reductive surgery now or in the future, we spent a great deal of time discussing the risks and benefits of , including but not limited to injury to intra-abdominal organs, breakdown of the gastric staple line, the need for re- operative therapy, prolonged hospitalization, mechanical ventilation, and . We discussed the possibility of bleeding, the need for blood transfusions, blood clots, hospital-acquired andintra-abdominal infection, anastomotic stricture, and worsening GERD. And we discussed the need forpost-operative visit compliance, behavior modifications and diet changes, protein and vitamin supple mentation, as well as routine scheduled and dedicated exercise. We discussed the potential weight loss benefit of approximately 60-70% of her excess body weight at 12-18 months post-op, as well as the possibility of insufficient weight loss or weight gain after 2 years post-operative time. Upon completion of all required pre-operative testing we will submit for insurance pre-authorization. If the patient has chosen or is strongly considering gastric bypass we discussed that in the event that gastric bypass could not be safely performed, such as extensive scar tissue, patient intolerance of anesthesia, excessive truncal obesity etc, the laparoscopic sleeve gastrectomy was discussed including the risks and benefits as listed above. The patient did agree to laparoscopic sleeve gastrectomy as an alternative procedure if the laparoscopic sergio en y bypass could not be performed. PLAN Encounter Diagnoses Name Primary? Primary hypertension Yes Hypothyroidism, unspecified type Back pain, unspecified back location, unspecified back pain laterality, unspecified chronicity Morbid obesity with BMI of 45.0-49.9, adult (HCC) I have recommended proceeding with the evaluation and work-up for the primary procedure as outlinedbelow: Dr. Elder PATIENT SUMMARY Sloane Rinaldi 72 y.o. female with Body mass index is 48.44 kg/m . Laparoscopic Sleeve Gastrectomy and Laparoscopic Liver Biopsy DM[] HTN[x] VINAY[] GERD[] HL[] OA[x] Date of Surgery: ANDREW Barboza INITIAL TESTING RESULTS Labwork [x] CMP, TSH, Fasting Lipid Profile, Mg, Zinc, Vit B1 (whole blood), Vit B12, 25-OH Vit D, Fe, Ferritin, Folate Tobacco [] Serum Nicotine / Cotinine [] Negative [] Positive PLEASE ADD SERUM NICOTINE/COTININE WITH INITIAL LABS ON ALL LRYGB PROCEDURES EGD [] Dx: [] GERD [x] Dyspepsia [] Other Pathology [x] H. pylori [] Negative [] Positive UGI [x] [] not ordered US Abdomen [] [] not ordered VINAY eval [] [] On CPAP / Obtain settings Hematology [] [] Hypercoagulation panel Toxicology [] [] Urine drug screen [] EtOH screen Addtional [x] [x] Hgb A1c INITIAL CONSULTATIONS CLEARANCE / MANAGEMENT Psychology [x] Dietitityrone [x] Cardiology [x] Dr. Garner Box Turner during recent hospitalization in October Pulmonary [x] Others [] []Heme/Onc []Psychiatry []Pain mgmt PSD [x] Physician supervised diet: []None [x]3 mos []6 mos Preop diet [x] Preop low calorie diet: []None []1 wk [x]2 wks FINAL PRE-OP TESTING RESULTS Labwork [x] [x]Pre-op CBC [x]BMP []Serum Nicotine / Cotinine EKG [x] CXR [x] POST-OP MEDICATIONS Ulcer Ppx [] Omeprazole 20 mg PO []QD []BID Gallstone Ppx [] Ursodiol 300 mg []BID DVT Ppx [x] DVT prophylaxis per final preop visit estimated risk Estimated calculated risk: % Schedule final pre-operative office visit with surgeon, pre-operative education class, and pre-operative exercise class prior to date of surgery ATTESTATION I reviewed with the patient the details of the proposed operation. The risks benefits and options were discussed. Risks included but were not limited to bleeding, infection, damage to other surrounding organs, cardio-pulmonary complications related to anesthesia, conversion from laparoscopic to andopen procedure, the need for reoperative or endoscopic therapy, the potential for prolonged mechanical ventilation, and . All questions were fully answered to the patient's satisfaction and theywish to proceed with surgical intervention. Greater than 51% of the 45 minute visit was spent as face to face encounter, counseling the patientand discussing the risks,benefits and options of surgery as well as the perioperative care plan. The patient was seen and examined independently and relevant data including a full chart rreview was performed by myself. Patient Care Team: Bryan Barboza as PCP - General (Family Medicine) Josef Elder MD as Surgeon (General Surgery) * Heidy Graves LPN - 12/24/2022 11:00 AM EDT [facility] SURGICAL WEIGHT LOSS MANAGEMENT PROGRAM Rooming Note - INITIAL CONSULTATION Patient: Sloane Rinaldi Date of : 1950 Service Date: 12/24/2022 Patient is here today to discuss the possibility of weight loss surgery. This patient is alone for the evaluation today she is interested in discussing weight loss surgery. Physician Supervised D/E: 3 Weight Metrics: Vitals BP: 136/83 Heart Rate: 101 Resp: 16 Temp: 36.3 C (97.3 F) Baseline Measures Initial Height: 5' 1.5 (156.2 cm) Initial Weight: 260 lb 9.6 oz (118 kg) Initial BMI: 48.5 Initial EBW: 153 lb 1.6 oz (69.4 kg) Initial Waist Cricumference: 54 Initial Neck Circumference: 18 Falls Risk Assessment Patient doestake medications which affect BP or mental status Patient does not have newly prescribed or changed dosage of medications within past 30 days which affect BP or mental status Patient has not fallen in the past 2 months Patient does not demonstrate unsteady gait Patient uses the following ambulatory assistive devices: none Patient is low risk for falls. If high or moderate risk, patient instructed not to ambulate independently in the Center, and cord for call light placed within reach of patient. History of Difficult Intubation: No Patient is not on home O2 Completed by: Heidy Graves LPN documented in this [facility] [id number] History of Present illness Narrative* Josef Elder MD - 12/24/2022 11:00 AM EDT BARIATRIC AND METABOLIC SURGERY [facility] INITIAL EVALUATION - HISTORY AND PHYSICAL 12/24/22 PATIENT: Sloane Rinaldi DATE OF : 1950 HISTORY OF PRESENT ILLNESS Chief Complaint: Morbid Obesity and associated comorbid conditions. Sloane Rinaldi is a 72 y.o. female with morbid obesity and associated comorbid conditions who [facility] for evaluation for bariatric surgery. The patient stands Height: 5' 1.5 (156.2 cm) [facility] tall with a weight of Weight: 260 lb 9.6 oz (118 kg) , and has a BMI of Body mass index is 48.44 kg/m .. The patient has failed multiple attempts at non-surgical weight loss, and is now seeking surgical intervention to promote permanent and consistent weight loss. The patient suffers from multiple co-morbidities as a result of morbid obesity as outlined in the past medical history. The patient denies a history of myocardia infarction, deep vein thrombosis, pulmonary embolism, renal failure, hepatic failure, stroke, and seizure. She does not smoke, and does not drink alcohol. Denies GERD. Denies admit to hospital for psych concern in last 12 months. Review of Systems Constitutional: Negative for fatigue and fever. HENT: Negative for congestion, rhinorrhea and trouble swallowing. Respiratory: Negative for cough, chest tightness and shortness of breath. Cardiovascular: Negative for chest pain, palpitations and leg swelling. Gastrointestinal: Negative for abdominal distention, abdominal pain, blood in stool, constipation, diarrhea and nausea. Genitourinary: Negative for dysuria, flank pain, frequency and urgency. Musculoskeletal: Positive for arthralgias. Negative for back pain and myalgias. Skin: Negative for color change and rash. Neurological: Negative for light-headedness and headaches. Psychiatric/Behavioral: Negative for dysphoric mood. The patient is not nervous/anxious. PAST HISTORIES Past Medical History: Diagnosis Date Asthma Back pain Fatigue History of prediabetes Hypertension Joint pain Melanoma (HCC) Palpitations Prediabetes SOB (shortness of breath) on exertion Past Surgical History: Procedure Laterality Date EXTREMITY SURGERY 1994 OTHER SURGICAL HISTORY 1997 rt arm melanoma Family History Problem Relation Name Age of Onset Asthma Father Cancer Sister Hypertension Brother Heart disease Brother Diabetes Brother Obesity Brother Social History Tobacco Use Smoking status: Never Smokeless tobacco: Never Substance Use Topics Alcohol use: Yes Comment: rarely Patient's Medications New Prescriptions No medications on file Previous Medications ALBUTEROL 108 (90 BASE) MCG/ACT INHALER Daily as needed. LEVOTHYROXINE (SYNTHROID, LEVOXYL) 100 MCG TABLET Take 100 mcg by mouth daily. LOSARTAN-HYDROCHLOROTHIAZIDE (HYZAAR) 50-12.5 MG TABLET Take 1 tablet by mouth before bedtime. Modified Medications No medications on file Discontinued Medications No medications on file Allergies Allergen Reactions Sulfa Antibiotics Hives PHYSICAL EXAM BP 136/83 Pulse 101 Temp 36.3 C (97.3 F) Resp 16 Ht 5' 1.5 (1.562 m) Comment: BCC HGT CHK Wt 260 lb 9.6 oz (118 kg) BMI 48.44 kg/m General: This patient is awake, alert, and oriented, with normal affect and is in no apparent distress. Cardiac: Regular rate and rhythm without evidence of murmur. Respiratory: Clear to auscultation bilaterally with normal effort. Abdomen: Obese, soft, non-tender, non-distended without masses/ No evidence of abdominal hernia / Incisions consistent with previous surgeries. Head and Neck: Obese, normocephalic and atraumatic/soft and supple, no lymphadenopathy or obvious bruits. No thyroidmegaly. Extremities: No cyanosis, clubbing or edema/ No calf tenderness/No restrictions of movement, is ambulatory without assistance. Neurological: Intact x 4 extremities, normal sensation, no focal deficits notes. Skin: Skin cool, warm and dry. No rashes or lesions noted. Rectal: Deferred LABORATORY STUDIES Laboratory Studies: No results for input(s): NA, K, CL, CO2, BUN, CREATININE, GLUCOSE, CALCIUM in the last 72 hours. No results for input(s): WBC, RBC, HGB, HCT, MCV, MCH, MCHC, RDW, PLT, MPV in the last 72 hours. No results for input(s): ALKPHOS, ALT, AST, PROT, BILITOT, BILIDIR, LIPASE in the last 72 hours. No lab exists for component: LABALBU ASSESSMENT Based on today's evaluation, the patient is a candidate for surgery. She chose the procedure as documented below in the plan. In anticipation of weight reductive surgery now or in the future, we spent a great deal of time discussing the risks and benefits of , including but not limited to injury to intra-abdominal organs, breakdown of the gastric staple line, the need for re- operative therapy, prolonged hospitalization, mechanical ventilation, and . We discussed the possibility of bleeding, the need for blood transfusions, blood clots, hospital-acquired andintra-abdominal infection, anastomotic stricture, and worsening GERD. And we discussed the need forpost-operative visit compliance, behavior modifications and diet changes, protein and vitamin supple mentation, as well as routine scheduled and dedicated exercise. We discussed the potential weight loss benefit of approximately 60-70% of her excess body weight at 12-18 months post-op, as well as the possibility of insufficient weight loss or weight gain after 2 years post-operative time. Upon completion of all required pre-operative testing we will submit for insurance pre-authorization. If the patient has chosen or is strongly considering gastric bypass we discussed that in the event that gastric bypass could not be safely performed, such as extensive scar tissue, patient intolerance of anesthesia, excessive truncal obesity etc, the laparoscopic sleeve gastrectomy was discussed including the risks and benefits as listed above. The patient did agree to laparoscopic sleeve gastrectomy as an alternative procedure if the laparoscopic sergio en y bypass could not be performed. PLAN Encounter Diagnoses Name Primary? Primary hypertension Yes Hypothyroidism, unspecified type Back pain, unspecified back location, unspecified back pain laterality, unspecified chronicity Morbid obesity with BMI of 45.0-49.9, adult (HCC) I have recommended proceeding with the evaluation and work-up for the primary procedure as outlinedbelow: Dr. Elder PATIENT SUMMARY Sloane Rinaldi 72 y.o. female with Body mass index is 48.44 kg/m . Laparoscopic Sleeve Gastrectomy and Laparoscopic Liver Biopsy DM[] HTN[x] VINAY[] GERD[] HL[] OA[x] Date of Surgery: TBD Bryan Barboza INITIAL TESTING RESULTS Labwork [x] CMP, TSH, Fasting Lipid Profile, Mg, Zinc, Vit B1 (whole blood), Vit B12, 25-OH Vit D, Fe, Ferritin, Folate Tobacco [] Serum Nicotine / Cotinine [] Negative [] Positive PLEASE ADD SERUM NICOTINE/COTININE WITH INITIAL LABS ON ALL LRYGB PROCEDURES EGD [] Dx: [] GERD [x] Dyspepsia [] Other Pathology [x] H. pylori [] Negative [] Positive UGI [x] [] not ordered US Abdomen [] [] not ordered VINAY eval [] [] On CPAP / Obtain settings Hematology [] [] Hypercoagulation panel Toxicology [] [] Urine drug screen [] EtOH screen Addtional [x] [x] Hgb A1c INITIAL CONSULTATIONS CLEARANCE / MANAGEMENT Psychology [x] Dietitityrone [x] Cardiology [x] Dr. Garner Box Turner during recent hospitalization in October Pulmonary [x] Dr. Rollins [] []Heme/Onc []Psychiatry []Pain mgmt PSD [x] Physician supervised diet: []None [x]3 mos []6 mos Preop diet [x] Preop low calorie diet: []None []1 wk [x]2 wks FINAL PRE-OP TESTING RESULTS Labwork [x] [x]Pre-op CBC [x]BMP []Serum Nicotine / Cotinine EKG [x] CXR [x] POST-OP MEDICATIONS Ulcer Ppx [] Omeprazole 20 mg PO []QD []BID Gallstone Ppx [] Ursodiol 300 mg []BID DVT Ppx [x] DVT prophylaxis per final preop visit estimated risk Estimated calculated risk: % Schedule final pre-operative office visit with surgeon, pre-operative education class, and pre-operative exercise class prior to date of surgery ATTESTATION I reviewed with the patient the details of the proposed operation. The risks benefits and options were discussed. Risks included but were not limited to bleeding, infection, damage to other surrounding organs, cardio-pulmonary complications related to anesthesia, conversion from laparoscopic to andopen procedure, the need for reoperative or endoscopic therapy, the potential for prolonged mechanical ventilation, and . All questions were fully answered to the patient's satisfaction and theywish to proceed with surgical intervention. Greater than 51% of the 45 minute visit was spent as face to face encounter, counseling the patientand discussing the risks,benefits and options of surgery as well as the perioperative care plan. The patient was seen and examined independently and relevant data including a full chart rreview was performed by myself. Patient Care Team: Bryan Barboza as PCP - General (Family Medicine) Josef Elder MD as Surgeon (General Surgery) * Heidy Graves LPN - 12/24/2022 11:00 AM EDT [facility] SURGICAL WEIGHT LOSS MANAGEMENT PROGRAM Rooming Note - INITIAL CONSULTATION Patient: Sloane Rinaldi Date of : 1950 Service Date: 12/24/2022 Patient is here today to discuss the possibility of weight loss surgery. This patient is alone for the evaluation today she is interested in discussing weight loss surgery. Physician Supervised D/E: 3 Weight Metrics: Vitals BP: 136/83 Heart Rate: 101 Resp: 16 Temp: 36.3 C (97.3 F) Baseline Measures Initial Height: 5' 1.5 (156.2 cm) Initial Weight: 260 lb 9.6 oz (118 kg) Initial BMI: 48.5 Initial EBW: 153 lb 1.6 oz (69.4 kg) Initial Waist Cricumference: 54 Initial Neck Circumference: 18 Falls Risk Assessment Patient doestake medications which affect BP or mental status Patient does not have newly prescribed or changed dosage of medications within past 30 days which affect BP or mental status Patient has not fallen in the past 2 months Patient does not demonstrate unsteady gait Patient uses the following ambulatory assistive devices: none Patient is low risk for falls. If high or moderate risk, patient instructed not to ambulate independently in the Center, and cord for call light placed within reach of patient. History of Difficult Intubation: No Patient is not on home O2 Completed by: Heidy Graves LPN documented in this [facility] [place]09-19-2023 History of Present illness Narrative* Josef Elder MD - 12/24/2022 11:00 AM EDT BARIATRIC AND METABOLIC SURGERY [facility] INITIAL EVALUATION - HISTORY AND PHYSICAL 12/24/22 PATIENT: Sloane Rinaldi DATE OF : 1950 HISTORY OF PRESENT ILLNESS Chief Complaint: Morbid Obesity and associated comorbid conditions. Sloane Rinaldi is a 72 y.o. female with morbid obesity and associated comorbid conditions who [facility] for bariatric surgery. The patient stands Height: 5' 1.5 (156.2 cm) [facility] tall with a weight of Weight: 260 lb 9.6 oz (118 kg) , and has a BMI of Body mass index is 48.44 kg/m .. The patient has failed multiple attempts at non-surgical weight loss, and is now seeking surgical intervention to promote permanent and consistent weight loss. The patient suffers from multiple co-morbidities as a result of morbid obesity as outlined in the past medical history. The patient denies a history of myocardia infarction, deep vein thrombosis, pulmonary embolism, renal failure, hepatic failure, stroke, and seizure. She does not smoke, and does not drink alcohol. Denies GERD. Denies admit to hospital for psych concern in last 12 months. Review of Systems Constitutional: Negative for fatigue and fever. HENT: Negative for congestion, rhinorrhea and trouble swallowing. Respiratory: Negative for cough, chest tightness and shortness of breath. Cardiovascular: Negative for chest pain, palpitations and leg swelling. Gastrointestinal: Negative for abdominal distention, abdominal pain, blood in stool, constipation, diarrhea and nausea. Genitourinary: Negative for dysuria, flank pain, frequency and urgency. Musculoskeletal: Positive for arthralgias. Negative for back pain and myalgias. Skin: Negative for color change and rash. Neurological: Negative for light-headedness and headaches. Psychiatric/Behavioral: Negative for dysphoric mood. The patient is not nervous/anxious. PAST HISTORIES Past Medical History: Diagnosis Date Asthma Back pain Fatigue History of prediabetes Hypertension Joint pain Melanoma (HCC) Palpitations Prediabetes SOB (shortness of breath) on exertion Past Surgical History: Procedure Laterality Date EXTREMITY SURGERY 1994 OTHER SURGICAL HISTORY 1997 rt arm melanoma Family History Problem Relation Name Age of Onset Asthma Father Cancer Sister Hypertension Brother Heart disease Brother Diabetes Brother Obesity Brother Social History Tobacco Use Smoking status: Never Smokeless tobacco: Never Substance Use Topics Alcohol use: Yes Comment: rarely Patient's Medications New Prescriptions No medications on file Previous Medications ALBUTEROL 108 (90 BASE) MCG/ACT INHALER Daily as needed. LEVOTHYROXINE (SYNTHROID, LEVOXYL) 100 MCG TABLET Take 100 mcg by mouth daily. LOSARTAN-HYDROCHLOROTHIAZIDE (HYZAAR) 50-12.5 MG TABLET Take 1 tablet by mouth before bedtime. Modified Medications No medications on file Discontinued Medications No medications on file Allergies Allergen Reactions Sulfa Antibiotics Hives PHYSICAL EXAM BP 136/83 Pulse 101 Temp 36.3 C (97.3 F) Resp 16 Ht 5' 1.5 (1.562 m) Comment: BCC HGT CHK Wt 260 lb 9.6 oz (118 kg) BMI 48.44 kg/m General: This patient is awake, alert, and oriented, with normal affect and is in no apparent distress. Cardiac: Regular rate and rhythm without evidence of murmur. Respiratory: Clear to auscultation bilaterally with normal effort. Abdomen: Obese, soft, non-tender, non-distended without masses/ No evidence of abdominal hernia / Incisions consistent with previous surgeries. Head and Neck: Obese, normocephalic and atraumatic/soft and supple, no lymphadenopathy or obvious bruits. No thyroidmegaly. Extremities: No cyanosis, clubbing or edema/ No calf tenderness/No restrictions of movement, is ambulatory without assistance. Neurological: Intact x 4 extremities, normal sensation, no focal deficits notes. Skin: Skin cool, warm and dry. No rashes or lesions noted. Rectal: Deferred LABORATORY STUDIES Laboratory Studies: No results for input(s): NA, K, CL, CO2, BUN, CREATININE, GLUCOSE, CALCIUM in the last 72 hours. No results for input(s): WBC, RBC, HGB, HCT, MCV, MCH, MCHC, RDW, PLT, MPV in the last 72 hours. No results for input(s): ALKPHOS, ALT, AST, PROT, BILITOT, BILIDIR, LIPASE in the last 72 hours. No lab exists for component: LABALBU ASSESSMENT Based on today's evaluation, the patient is a candidate for surgery. She chose the procedure as documented below in the plan. In anticipation of weight reductive surgery now or in the future, we spent a great deal of time discussing the risks and benefits of , including but not limited to injury to intra-abdominal organs, breakdown of the gastric staple line, the need for re- operative therapy, prolonged hospitalization, mechanical ventilation, and . We discussed the possibility of bleeding, the need for blood transfusions, blood clots, hospital-acquired andintra-abdominal infection, anastomotic stricture, and worsening GERD. And we discussed the need forpost-operative visit compliance, behavior modifications and diet changes, protein and vitamin supple mentation, as well as routine scheduled and dedicated exercise. We discussed the potential weight loss benefit of approximately 60-70% of her excess body weight at 12-18 months post-op, as well as the possibility of insufficient weight loss or weight gain after 2 years post-operative time. Upon completion of all required pre-operative testing we will submit for insurance pre-authorization. If the patient has chosen or is strongly considering gastric bypass we discussed that in the event that gastric bypass could not be safely performed, such as extensive scar tissue, patient intolerance of anesthesia, excessive truncal obesity etc, the laparoscopic sleeve gastrectomy was discussed including the risks and benefits as listed above. The patient did agree to laparoscopic sleeve gastrectomy as an alternative procedure if the laparoscopic sergio en y bypass could not be performed. PLAN Encounter Diagnoses Name Primary? Primary hypertension Yes Hypothyroidism, unspecified type Back pain, unspecified back location, unspecified back pain laterality, unspecified chronicity Morbid obesity with BMI of 45.0-49.9, adult (HCC) I have recommended proceeding with the evaluation and work-up for the primary procedure as outlinedbelow: Dr. Elder PATIENT SUMMARY Sloane Rinaldi 72 y.o. female with Body mass index is 48.44 kg/m . Laparoscopic Sleeve Gastrectomy and Laparoscopic Liver Biopsy DM[] HTN[x] VINAY[] GERD[] HL[] OA[x] Date of Surgery: TBD Bryan Barboza INITIAL TESTING RESULTS Labwork [x] CMP, TSH, Fasting Lipid Profile, Mg, Zinc, Vit B1 (whole blood), Vit B12, 25-OH Vit D, Fe, Ferritin, Folate Tobacco [] Serum Nicotine / Cotinine [] Negative [] Positive PLEASE ADD SERUM NICOTINE/COTININE WITH INITIAL LABS ON ALL LRYGB PROCEDURES EGD [] Dx: [] GERD [x] Dyspepsia [] Other Pathology [x] H. pylori [] Negative [] Positive UGI [x] [] not ordered US Abdomen [] [] not ordered VINAY eval [] [] On CPAP / Obtain settings Hematology [] [] Hypercoagulation panel Toxicology [] [] Urine drug screen [] EtOH screen Addtional [x] [x] Hgb A1c INITIAL CONSULTATIONS CLEARANCE / MANAGEMENT Psychology [x] Dietitian [x] Cardiology [x] Dr. Garner Box Turner during recent hospitalization in October Pulmonary [x] Dr. Rollins [] []Heme/Onc []Psychiatry []Pain mgmt PSD [x] Physician supervised diet: []None [x]3 mos []6 mos Preop diet [x] Preop low calorie diet: []None []1 wk [x]2 wks FINAL PRE-OP TESTING RESULTS Labwork [x] [x]Pre-op CBC [x]BMP []Serum Nicotine / Cotinine EKG [x] CXR [x] POST-OP MEDICATIONS Ulcer Ppx [] Omeprazole 20 mg PO []QD []BID Gallstone Ppx [] Ursodiol 300 mg []BID DVT Ppx [x] DVT prophylaxis per final preop visit estimated risk Estimated calculated risk: % Schedule final pre-operative office visit with surgeon, pre-operative education class, and pre-operative exercise class prior to date of surgery ATTESTATION I reviewed with the patient the details of the proposed operation. The risks benefits and options were discussed. Risks included but were not limited to bleeding, infection, damage to other surrounding organs, cardio-pulmonary complications related to anesthesia, conversion from laparoscopic to andopen procedure, the need for reoperative or endoscopic therapy, the potential for prolonged mechanical ventilation, and . All questions were fully answered to the patient's satisfaction and theywish to proceed with surgical intervention. Greater than 51% of the 45 minute visit was spent as face to face encounter, counseling the patientand discussing the risks,benefits and options of surgery as well as the perioperative care plan. The patient was seen and examined independently and relevant data including a full chart rreview was performed by myself. Patient Care Team: Bryan Barboza as PCP - General (Family Medicine) Josef Eldre MD as Surgeon (General Surgery) * Heidy Graves LPN - 12/24/2022 11:00 AM EDT [facility] SURGICAL WEIGHT LOSS MANAGEMENT PROGRAM Rooming Note - INITIAL CONSULTATION Patient: Sloane Rinaldi Date of : 1950 Service Date: 12/24/2022 Patient is here today to discuss the possibility of weight loss surgery. This patient is alone for the evaluation today she is interested in discussing weight loss surgery. Physician Supervised D/E: 3 Weight Metrics: Vitals BP: 136/83 Heart Rate: 101 Resp: 16 Temp: 36.3 C (97.3 F) Baseline Measures Initial Height: 5' 1.5 (156.2 cm) Initial Weight: 260 lb 9.6 oz (118 kg) Initial BMI: 48.5 Initial EBW: 153 lb 1.6 oz (69.4 kg) Initial Waist Cricumference: 54 Initial Neck Circumference: 18 Falls Risk Assessment Patient doestake medications which affect BP or mental status Patient does not have newly prescribed or changed dosage of medications within past 30 days which affect BP or mental status Patient has not fallen in the past 2 months Patient does not demonstrate unsteady gait Patient uses the following ambulatory assistive devices: none Patient is low risk for falls. If high or moderate risk, patient instructed not to ambulate independently in the Center, and cord for call light placed within reach of patient. History of Difficult Intubation: No Patient is not on home O2 Completed by: Heidy Graves LPN documented in this [facility] [place]07-11-2023 Discharge summary [facility] October 15, 2022 2:42pm Note Date/Time October 15, 2022 12:0 1pm [facility] Medical Records Department [address] [place] [address] Emergency Department Summary 10/15/22 MR#: [id number] Acct: [id number] Name: SLOANE RINALDI Rep #:[id number] : 1950 71 From: Christiano Hernández PCP: Dr. John Barboza MD Status: REG ER Location: ED HPI History of Present Illness Chief Complaint: [facility] Medical History (Updated 10/15/22 @ 14:[address] Christiano De La Vega DO) Lower extremity pain Home Medications levothyroxine 100 mcg capsule 100 mcg PO DAILY 02/08/21 [History Last Taken Unknown] losartan 50 mg-hydrochlorothiazide 12.5 mg tablet 1 tab PO DAILY 02/08/21 [History Last Taken Unknown] tramadol 50 mg tablet 50 mg PO Q6H PRN pain 2 days #8 tabs 09/19/22 [Rx Last Taken Unknown] Allergy/AdvReac Type Severity Reaction Status Date / Time Sulfa (Sulfonamide Allergy unknown Verified 09/19/22 20:38 Antibiotics) Social History Smoking Status: Never smoker EXAM Physical Exam Const Vital Signs: 10/15/22 11:34 10/15/22 11:42 10/15/22 14:07 Temperature 97.6 F L Temperature Source Oral Pulse Rate 86 98 Respiratory Rate 16 16 Respiratory Pattern Normal Blood Pressure 151/106 H 144/93 H Blood Pressure Mean 121 110 Pulse Ox 93 Oxygen Delivery Method Room Air Room Air MDM MDM MDM Narrative Medical decision making narrative: HISTORY OF PRESENT ILLNESS: 71-year-old female endorses acute onset of dizziness after ambulating to the bathroom she notes associated shortness of breath arm pain and neck pain that started and then subsequently resolved. She states recently has been more lightheaded. Symptoms are intermittent. No symptoms currently. States she sawher PCP yesterday and he ordered a stress test to further work-up intermittent lightheadedness and associated fatigue. She also endorses shortness of breath. Denies any chest pain or exertional symptoms. The patient denies recent surgeryin the last 4 weeks or immobilization in the last 3 days, denies previous diagnosis of DVT or PE, hemoptysis, unilateral leg swelling or malignancy with treatment the last 6 months. No estrogen use noted. Denies any focal neurologic deficits at this time. No history of aneurysms. REVIEW OF SYSTEMS: Pertinent positives: Dizziness, neck and arm pain Pertinent negatives: Chest pain, focal weakness, syncope PHYSICAL EXAM: Nursing triage notes reviewed, Vital signs reviewed Constitutional: please see mdm HENT: MMM Eyes: Pupils equal round and reactive to light, Extraocular muscles intact Neck: No stridor, no JVD, full neck ROM Lungs: Clear to auscultation, No wheezing or rales. No increased work of breathing, no conversational dyspnea, no accessory muscle use, no nasal flaring. No respiratory distress noted Heart: Regular rate and rhythm, No murmurs, No rubs and No gallops, 2+ distal pulses (radial, femoral, posterior tibial) in all extremities Abdomen: Soft, there is no tenderness, rigidity, rebound or guarding, no obviousperitoneal signs, no palpable pulsatile abdominal masses, no auscultated abdominal bruit : No CVAT Extremities: No edema Neuro: Alert and oriented x3, neuro exam at baseline, cranial nerves II through XII are intact. No pain with extraocular muscle movement. There is negative test of skew. Normal speech. 5 of 5 strength in upper and lower extremities inflexion extension. Intact sensation to light touch in upper and lower extremitydermatomes. No truncal or extremity ataxia. No dysdiadochokinesia. 2+ reflexes. No meningeal signs. Negative Babinski. NIH of 0 Skin: No rash or lesions noted MEDICAL DECISION MAKING: Chief Complaint: Dizziness External records reviewed: Echocardiogram 2018 shows ejection fraction of 60% Factors affecting care: n hypothyroidism, hypertension Social determinants of health: Elderly History obtained from others: The patient significant other Consults: none ALL IMAGES (IF OBTAINED) HAVE BEEN PERSONALLY REVIEWED AND INTERPRETED BY MYSELF. EKG with normal sinus rhythm, normal axis, right bundle branch block, no obviousSTEMI no prior EKG for comparison CBC without leukocytosis, severe anemia, no thrombocytopenia. BMP without evidence of significant electrolyte abnormalities, no anion gap, no acute kidney injury. Troponin is negative, no evidence of myocardial ischemia BNP within normal limits suggestive of no increased transmural pressure, ventricular stretch or heart failure Urinalysis shows no evidence of urinary inflammation suggestive of UTI [facility] Narrative: The patient was initially hemodynamically stable, afebrile, nontoxic-appearing. No focal neurologic deficits on my initial exam. I considered the following differential diagnosis: ICH, carotid artery dissection, large vessel occlusion, CHF, anemia, myocardial schema, arrhythmia, dehydration, electrolyte abnormality, I obtained a broad lab and imaging work-up to further elucidate the etiology thepatient complaints. I obtained a CT to rule out bleeding or mass. CTA of the head and neck to rule out carotid artery dissection or large vessel occlusion. Also obtained a chest x-ray basic labs as well as troponin to rule out the otherdifferentials. Labs and images were remarkable for no evidence of large vessel occlusion, mass, ICH. No evidence of pulmonary edema, significant BNP elevationto suggest CHF, no evidence of myocardial ischemia, arrhythmia anemia or significant electrolyte abnormalities. Patient's gait was stable after treatments. She is appropriate discharge home. I completed a structured, evidence-based clinical evaluation to screen for acutestroke and neurologic deficits in this patient. The patient has a normal detailed neurologic exam, which is highly sensitive for dangerous causes of dizziness, vertigo, or loss of balance. The evidence indicates that the patient is very low risk for an acute neurologicemergency and this is consistent with my clinical intuition. The risk of furtherworkup or hospitalization is likely higher than the risk of the patient having astroke or other dangerous neurologic condition. It is, therefore, in the patient?s best interest not to do additional emergent testing or to be hospitalized at this time. Shared Decision-Making I have discussed with the patient my clinical impression and the result of an evidence-based clinical evaluation to screen for stroke, as well as the risk of further testing and hospitalization. The evidence shows that the risk for stroke is less than 1%. Although the risk of stroke has not been completely eliminated, the risks of further testing or hospitalization likely exceed any potential benefit, and the patient agrees withnot pursuing further emergent evaluation or hospitalization for stroke evaluation at this time. The patient and/or family, caregivers express understanding. The patient and/orfamily, caregivers agrees with the plan. Total critical care time today provided was at least 0 minutes. This excludes separately billable procedures. Critical care time (if documented) is secondary to the patient having high probability of clinically significant/life threatening deterioration in the patient's condition which required my urgent intervention. Shared decision making: I will have a discussion with the patient and or visitors regarding risk/benefits of further testing or admission. They will be made aware of of the risk/benefits inherent in this decision they will be given the opportunity to voice understanding. Lab Data Attestation: I reviewed the patient's lab results. Labs: Laboratory Results - last 24 hr 10/15/22 10/15/22 12:27 14:04 WBC 8.3 RBC 4.50 Hgb 13.8 Hct 42.3 MCV 94.0 MCH 30.7 MCHC 32.6 RDW Std Deviation 43.9 RDW Coeff of Piper 12.7 Plt Count 288 MPV 9.1 Immature Gran % (Auto) 0.500 Neut % (Auto) 61.9 Lymph % (Auto) 21.8 [place] % (Auto) 13.5 H Eos % (Auto) 1.6 Baso % (Auto) 0.7 Absolute Neuts (auto) 5.1 Absolute Lymphs (auto) 1.80 Nucleated RBC % 0 Sodium 138 Potassium 3.7 Chloride 105 Carbon Dioxide 28.0 Anion Gap 5 BUN 18 Creatinine 0.93 Estim Creat Clear Calc 46.56 Est GFR (MDRD) Af Amer 77 Est GFR (MDRD) Non-Af 63 BUN/Creatinine Ratio 19.4 Glucose 84 Calcium 9.3 Troponin I High Sens 4 B-Natriuretic Peptide 26.7 TSH 1.29 Free T4 1.36 Urine Color Yellow Urine Clarity Clear Urine pH 7.0 Ur Specific Rosalia 1.005 Urine Protein Negative Urine Glucose (UA) Normal Urine Ketones Negative Urine Occult Blood Negative Urine Nitrite Negative Urine Bilirubin Negative Urine Urobilinogen Normal Ur Leukocyte Esterase Negative Radiography Chest X-Ray - ED: Read by ED Physician Diagnostic Testing: Clinical Impression(s) from Imaging Studies Chest X-Ray 10/15/22 12:50 IMPRESSION: Mild cardiomegaly. Electronically Signed: Leobardo Ltuz MD at 12:58 EDT , Head/Neck CTA 10/15/22 12:53 IMPRESSION: Calcific plaque at the origin of the left internal carotid artery causing less than 50% stenosis. N.B. : The above Results were Read Back by Leobardo Lutz MD to Dr Ceferino DO, and understanding confirmed on 10/15/2022 13:14:17 (ET). Electronically Signed: Leobardo Lutz MD at 13:16 EDT , ADDENDUM: 10/15/22 1322 IMPRESSION: Calcific plaque at the origin of the left internal carotid artery causing less than 50% stenosis. N.B. : The above Results were Read Back by Leobardo Lutz MD to Dr Ceferino DO, and understanding confirmed on 10/15/2022 13:14:17 (ET). Electronically Signed: Leobardo Lutz MD at 13:16 EDT , I have personally reviewed the patient's chest x-ray. Chest x-ray is unremarkable for pulmonary edema, pneumothorax, pneumonia or focal cardiopulmonary abnormality. Discharge Plan Triage Chief Complaint: Dizziness ED Provider: Christiano De La Vega Dx/Rx/DC Orders Clinical Impression: Fatigue, Dizziness Instructions: ED Dizziness, Uncertain Cause Prescriptions: No Action losartan-hydrochlorothiazide 50-12.5 mg Tablet 1 tab PO DAILY levothyroxine 100 mcg Capsule 100 mcg PO DAILY tramadol 50 mg tablet 50 mg PO Q6H PRN (Reason: pain) 2 Days Qty: 8 0RF Primary Care Provider: John Barboza Referrals: John Barboza MD [Primary Care Provider] - Activity Restrictions/Additional Instructions: Thank you for trusting us with your care today! Please take Tylenol (2 pills, 650 mg), ibuprofen (2 pills, 400 mg) every 6 hoursas needed for pain and fever control. Please return to the emergency department if your symptoms change or worsen. Please follow with your primary care physician for further outpatient evaluationand management. Disposition Disposition: Home, Self Care What to do if you have Problems For any increased pain, shortness of breath, bleeding, nausea or vomiting, chestpain, or any unexpected problems, contact your Primary Care Provider. Call [facility] ([phone]) or report to the closest Emergency Room. Call 911 if necessary. 10/15/22 1442 <Electronically signed by Christiano De La Vega DO> Cosigner Signature (if applicable): CC: Dr. John Barboza MD ~ Signed [facility] Work Phone: [phone]) 300-828106-15-[address] Dempsey [facility] September 19, 2022 10:46pm Note Date/Time September 19, 2022 9:09 pm [facility] Medical Records Department [address] [place] [address] Emergency Department Summary 09/19/22 MR#: [id number] Acct: [id number] Name: SLOANE RINALDI Rep #:[id number] : 1950 71 From: Rohit Dempsey MD PCP: Dr. John Barboza MD Status: REG ER Location: ED HPI History of Present Illness Chief Complaint: Lower Extremity Injury Informant: patient Narrative Narrative: Patient presents by EMS because of severe cramps in both calves, worse on the right, started suddenly when she went to stand from a sitting position at home on her couch. She has had muscle cramps before but this was much worse, and shestates the pain was severe and family was so scared that they called EMS to transport her here because she was afraid she could not walk. Patient denies any changes in her medications recently. She is on the diuretic,her blood pressure medication is losartan/HCTZ. She denies any recent illness or vinc-agd-uhohxwo medications. She presents late in the evening, and states that she had 3 to 4 cups of coffee today, and very little else to drink, but hasno other reason to be dehydrated. [facility] Medical History (Updated 09/19/22 @ 22:[address] Rohit Dempsey MD) Lower extremity pain Home Medications levothyroxine 100 mcg capsule 100 mcg PO DAILY 02/08/21 [History Last Taken Unknown] losartan 50 mg-hydrochlorothiazide 12.5 mg tablet 1 tab PO DAILY 02/08/21 [History Last Taken Unknown] tramadol 50 mg tablet 50 mg PO Q6H PRN pain 2 days #8 tabs 09/19/22 [Rx Last Taken Unknown] Allergy/AdvReac Type Severity Reaction Status Date / Time Sulfa (Sulfonamide Allergy unknown Verified 09/19/22 20:38 Antibiotics) Social History Smoking Status: Never smoker ROS ROS ED Constitutional Constitutional ED: Denies chills or fever(s) Musculoskeletal Musculoskeletal: Reports extremity pain; Denies neck pain Integumentary Denies Abrasions, rash or wounds Neurologic Neurologic: Denies paresthesias or weakness EXAM Physical Exam Const Vital Signs: 09/19/22 20:38 09/19/22 20:41 09/19/22 21:10 Temperature 98.2 F Temperature Source Temporal Pulse Rate 98 99 100 Respiratory Rate 18 16 18 Blood Pressure 204/104 H 188/89 H 146/71 H Blood Pressure Mean 137 122 96 Pulse Ox 96 96 95 Oxygen Delivery Method Room Air Room Air Room Air Positive well nourished and well developed General Appearance ED: well developed and NAD Neck full ROM and supple Back/Spine normal ROM and normal to inspection Extremity normal to inspection and full ROM Extremity Narrative: Mild bilateral soleus and calf tenderness without palpable cord, edema, cellulitis, skin lesion, or other areas of tenderness. All compartments soft and nondistended. Neuro oriented x3, no focal motor deficits and no sensory deficits noted Sensorium / Orientation: alert Psych mental status grossly normal and thought process normal Skin no wounds Rashes: no rashes MDM MDM MDM Narrative Medical decision making narrative: Obtained a set of electrolytes as well as a CPK. They do show prerenal azotemia. While waiting for this she was given 500 cc of IV fluids considering mild dehydration the likely cause, she was improved on reevaluation, and able towalk without difficulty. Of note her blood pressure was 204/104 when she got here and initially I ordered her a dose of hydralazine but without giving it, she came down to 146/71 and it was held and canceled. She and I both suspect she had high blood pressure at the time because she was in pain and a little anxious upon getting here. Advised to stay hydrated and follow-up with her doctor as needed. Prescribe her some tramadol to use as needed. History & Record Review Additional record(s) reviewed:: Prior labs Lab Data Attestation: I reviewed the patient's lab results. Labs: Laboratory Results - last 24 hr 09/19/22 21:05 Sodium 138 Potassium 3.7 Chloride 105 Carbon Dioxide 27.0 Anion Gap 6 BUN 22 H Creatinine 0.95 Estim Creat Clear Calc 47.58 Est GFR (MDRD) Af Amer 74 Est GFR (MDRD) Non-Af 61 BUN/Creatinine Ratio 23.1 H Glucose 128 H Calcium 9.1 Total Creatine Kinase 63 Discharge Plan Triage Chief Complaint: Lower Extremity Injury ED Provider: Rohit Dempsey Dx/Rx/DC Orders Clinical Impression: Bilateral leg cramps, Mild dehydration Instructions: Muscle Spasm Prescriptions: New tramadol 50 mg tablet 50 mg PO Q6H PRN (Reason: pain) 2 Days Qty: 8 0RF No Action losartan-hydrochlorothiazide 50-12.5 mg Tablet 1 tab PO DAILY levothyroxine 100 mcg Capsule 100 mcg PO DAILY Primary Care Provider: John Barboza Referrals: John Barboza MD [Primary Care Provider] - 3-5 Days if not improving Disposition Disposition: Home, Self Care What to do if you have Problems For any increased pain, shortness of breath, bleeding, nausea or vomiting, chestpain, or any unexpected problems, contact your Primary Care Provider. Call [facility] ([phone]) or report to the closest Emergency Room. Call 911 if necessary. 09/19/222245 <Electronically signed by Rohit Dempsey MD> Cosigner Signature (if applicable): CC: Dr. John Barboza MD ~ Signed [facility] Work Phone: Evaluation noteNo assessment information available [facility] Work Phone: Evaluation note* Diagnosis Primary hypertension- Primary Unspecified essential hypertension Hypothyroidism, unspecified type Back pain, unspecified back location, unspecified back pain laterality, unspecified chronicity Morbid obesity with BMI of 45.0-49.9, adult (HCC) [facility] Diagnosis Primary hypertension- Primary Unspecified essential hypertension Morbid obesity, unspecified obesity type (HCC) Back pain, unspecified back location, unspecified back pain laterality, unspecified chronicity Prediabetes Other abnormal glucose Iron deficiency Disorders of iron metabolism Vitamin D deficiency [facility] Diagnosis Primary hypertension- Primary Unspecified essential hypertension Hypothyroidism, unspecified type Back pain, unspecified back location, unspecified back pain laterality, unspecified chronicity Morbid obesity with BMI of 45.0-49.9, adult (HCC) [facility] Diagnosis Primary hypertension- Primary Unspecified essential hypertension Morbid obesity, unspecified obesity type (HCC) Back pain, unspecified back location, unspecified back pain laterality, unspecified chronicity Prediabetes Other abnormal glucose Iron deficiency Disorders of iron metabolism Vitamin D deficiency [facility] Diagnosis Primary hypertension- Primary Unspecified essential hypertension [facility]* Diagnosis Morbid obesity due to excess calories (HCC)- Primary Hypertension, unspecified type [facility]* Diagnosis Mild intermittent asthma, unspecified whether complicated- Primary SOB (shortness of breath) Shortness of breath Morbid obesity (HCC) Morbid obesity Encounter for preoperative pulmonary examination Hx of melanoma of skin Sleep disorder breathing Other sleep disturbances [facility] Diagnosis Morbid obesity due to excess calories (HCC)- Primary Hypertension, unspecified type [facility]* Diagnosis Primary hypertension- Primary Unspecified essential hypertension Morbid obesity, unspecified obesity type (HCC) Back pain, unspecified back location, unspecified back pain laterality, unspecified chronicity Prediabetes Other abnormal glucose Iron deficiency Disorders of iron metabolism Vitamin D deficiency [facility]* Diagnosis Morbid obesity due to excess calories (HCC)- Primary Hypertension, unspecified type [facility]* Diagnosis Low vitamin D level- Primary [facility]* Diagnosis Primary hypertension- Primary Unspecified essential hypertension Morbid obesity, unspecified obesity type (HCC) Back pain, unspecified back location, unspecified back pain laterality, unspecified chronicity Prediabetes Other abnormal glucose Iron deficiency Disorders of iron metabolism Vitamin D deficiency [facility]* Diagnosis Primary hypertension- Primary Unspecified essential hypertension Morbid obesity, unspecified obesity type (HCC) Back pain, unspecified back location, unspecified back pain laterality, unspecified chronicity Prediabetes Other abnormal glucose Iron deficiency Disorders of iron metabolism Vitamin D deficiency Primary hypertension Unspecified essential hypertension Morbid obesity, unspecified obesity type (HCC) Back pain, unspecified back location, unspecified back pain laterality, unspecified chronicity Prediabetes Other abnormal glucose Iron deficiency Disorders of iron metabolism Vitamin D deficiency [facility]* Diagnosis Primary hypertension- Primary Unspecified essential hypertension Morbid obesity, unspecified obesity type (HCC) Back pain, unspecified back location, unspecified back pain laterality, unspecified chronicity Prediabetes Other abnormal glucose Iron deficiency Disorders of iron metabolism Vitamin D deficiency Primary hypertension Unspecified essential hypertension Morbid obesity, unspecified obesity type (HCC) Back pain, unspecified back location, unspecified back pain laterality, unspecified chronicity Prediabetes Other abnormal glucose Iron deficiency Disorders of iron metabolism Vitamin D deficiency [facility]* Diagnosis Low vitamin D level- Primary Gastro-esophageal reflux disease without esophagitis [facility]* Diagnosis Preoperative clearance- Primary Unspecified pre-operative examination Primary hypertension Unspecified essential hypertension Morbid obesity, unspecified obesity type (HCC) Prediabetes Other abnormal glucose Gastro-esophageal reflux disease without esophagitis [facility]* Diagnosis Preoperative clearance- Primary Unspecified pre-operative examination Primary hypertension Unspecified essential hypertension Morbid obesity, unspecified obesity type (HCC) Prediabetes Other abnormal glucose Gastro-esophageal reflux disease without esophagitis [facility]* Diagnosis Morbid obesity due to excess calories (HCC)- Primary Hypertension, unspecified type Gastro-esophageal reflux disease without esophagitis [facility]* Diagnosis Gastro-esophageal reflux disease without esophagitis [facility]* Diagnosis Morbid obesity due to excess calories (HCC)- Primary Hypertension, unspecified type [facility]* Diagnosis Mild intermittent asthma, unspecified whether complicated- Primary SOB (shortness of breath) Shortness of breath Morbid obesity (HCC) Morbid obesity Encounter for preoperative pulmonary examination Hx of melanoma of skin Sleep disorder breathing Other sleep disturbances [facility]* Diagnosis Primary hypertension- Primary Unspecified essential hypertension Morbid obesity, unspecified obesity type (HCC) Back pain, unspecified back location, unspecified back pain laterality, unspecified chronicity Prediabetes Other abnormal glucose Iron deficiency Disorders of iron metabolism Vitamin D deficiency Primary hypertension Unspecified essential hypertension Morbid obesity, unspecified obesity type (HCC) Back pain, unspecified back location, unspecified back pain laterality, unspecified chronicity Prediabetes Other abnormal glucose Iron deficiency Disorders of iron metabolism Vitamin D deficiency [facility]* Diagnosis Primary hypertension- Primary Unspecified essential hypertension Hypothyroidism, unspecified type Morbid obesity with BMI of 45.0-49.9, adult (HCC) Morbid (severe) obesity due to excess calories (HCC) [facility]* Diagnosis Morbid obesity with BMI of 45.0-49.9, adult (HCC)- Primary Morbid obesity with BMI of 45.0-49.9, adult (HCC) Morbid (severe) obesity due to excess calories (HCC) Hypertension Unspecified essential hypertension Hypercholesterolemia Pure hypercholesterolemia Hypothyroid Unspecified hypothyroidism Iron deficiency anemia Unspecified iron deficiency anemia [facility]* Diagnosis Primary hypertension- Primary Unspecified essential hypertension Hypothyroidism, unspecified type Back pain, unspecified back location, unspecified back pain laterality, unspecified chronicity Morbid obesity with BMI of 45.0-49.9, adult (HCC) [facility]* Diagnosis Primary hypertension- Primary Unspecified essential hypertension Deficiency of multiple nutrient elements Other nutritional deficiency S/P gastric sleeve procedure Morbid obesity with BMI of 45.0-49.9, adult (HCC) Hypothyroidism, unspecified type documented [facility]* Diagnosis Primary hypertension- Primary Unspecified essential hypertension Deficiency of multiple nutrient elements Other nutritional deficiency S/P gastric sleeve procedure Morbid obesity with BMI of 45.0-49.9, adult (HCC) Hypothyroidism, unspecified type documented [facility]* Diagnosis Primary hypertension- Primary Unspecified essential hypertension Deficiency of multiple nutrient elements Other nutritional deficiency Hypercholesterolemia Pure hypercholesterolemia Morbid obesity with BMI of 40.0-44.9, adult (HCC) documented [facility]* Diagnosis Primary hypertension- Primary Unspecified essential hypertension Deficiency of multiple nutrient elements Other nutritional deficiency Hypercholesterolemia Pure hypercholesterolemia Morbid obesity with BMI of 40.0-44.9, adult (HCC) [facility]* Diagnosis Yeast dermatitis- Primary GERD without esophagitis Esophageal reflux Hypothyroidism, unspecified type Primary hypertension Unspecified essential hypertension Morbid obesity with BMI of 40.0-44.9, adult (HCC) Deficiency of multiple nutrient elements Other nutritional deficiency Arthralgia, unspecified joint [facility]* Diagnosis Yeast dermatitis- Primary GERD without esophagitis Esophageal reflux Hypothyroidism, unspecified type Primary hypertension Unspecified essential hypertension Morbid obesity with BMI of 40.0-44.9, adult (HCC) Deficiency of multiple nutrient elements Other nutritional deficiency Arthralgia, unspecified joint documented [facility]* Diagnosis Prediabetes- Primary Other abnormal glucose Deficiency of multiple nutrient elements Other nutritional deficiency Deficiency of other specified B group vitamins History of sleeve gastrectomy Hypothyroidism, unspecified type Back pain, unspecified back location, unspecified back pain laterality, unspecified chronicity Secondary hypertension Other secondary hypertension, unspecified Arthralgia, unspecified joint Iron deficiency Disorders of iron metabolism Vitamin D deficiency [facility]* Diagnosis Prediabetes- Primary Other abnormal glucose Deficiency of multiple nutrient elements Other nutritional deficiency Deficiency of other specified B group vitamins History of sleeve gastrectomy Hypothyroidism, unspecified type Back pain, unspecified back location, unspecified back pain laterality, unspecified chronicity Secondary hypertension Other secondary hypertension, unspecified Arthralgia, unspecified joint Iron deficiency Disorders of iron metabolism Vitamin D deficiency [facility]* Diagnosis History of sleeve gastrectomy Deficiency of other specified B group vitamins Deficiency of multiple nutrient elements Other nutritional deficiency Class 2 severe obesity due to excess calories with serious comorbidity and body mass index (BMI) of 35.0 to 35.9 in adult (HCC) Secondary hypertension Other secondary hypertension, unspecified [facility]* Diagnosis Elevated ferritin level- Primary Other abnormal blood chemistry Serum calcium elevated Hypercalcemia [facility]* Diagnosis Class 2 obesity due to excess calories in adult, unspecified BMI, unspecified whether serious comorbidity present- Primary Excess skin documented [facility] Discharge instructions Additional Instructions Thank you for trusting us with your care today! Please take Tylenol (2 pills, 650 mg), ibuprofen (2 pills, 400 mg) every 6 hours as needed for pain and fever control. Please return to the emergency department if your symptoms change or worsen. Please follow with your primary care physician for further outpatient evaluation and management.[facility] Work Phone: Hospital Discharge instructions* Attachments The following attachments cannot be sent through Care Everywhere. * Upper GI Endoscopy Discharge Instructions ([place]) * Moderate Sedation in Adults Discharge Instructions ([place]) * Stomach Polyps ([place]) [facility] Name Dates Details Patient Instructions Indication:Lymphedema of arm Start:19-Aug-2013 Instruction Type:Provider Instructions for Treatment Patient Instructions Indication:Benign essential hypertension Start:22-Jan-2012 Instruction Type:Provider Instructions for Treatment [facility] Work Phone: Instructions* Name Dates Details Patient Instructions Indication:Lymphedema of arm Start:19-Aug-2013 Instruction Type:Provider Instructions for Treatment Patient Instructions Indication:Benign essential hypertension Start:22-Jan-2012 Instruction Type:Provider Instructions for Treatment [facility] Work Phone: instructions* Name Dates Details Patient Instructions Indication:Lymphedema of arm Start:19-Aug-2013 Instruction Type:Provider Instructions for Treatment Patient Instructions Indication:Benign essential hypertension Start:22-Jan-2012 Instruction Type:Provider Instructions for Treatment [facility] Work Phone: reason for referral (narrative)* Consultation (Routine) - Pending Review Specialty Diagnoses / Procedures Referred By Contac t Referred To Contact Pulmonary Disease / Pulmonology Diagnoses Primary hypertension Morbid obesity, unspecified obesity type (HCC) Procedures CA OFFICE/OUTPATIENT NEW HIGH MDM 60-74 MINUTES Tanika Ragsdale NP [address] [place] [address] [facility] [address] [place] [address] Referral ID Status Reason Start Date Expiration Date Visits Requested Visits Authorized [id number] Pending Review Specialty Services Required 12/25/2022 12/25/2023 1 1 * Consultation (Elective) - Pending Review Specialty Diagnoses / Procedures Referred By Contac t Referred To Contact Cardiology Diagnoses Primary hypertension Morbid obesity, unspecified obesity type (HCC) Prediabetes Procedures CA OFFICE/OUTPATIENT NEW HIGH MDM 60-74 MINUTES Tanika Ragsdale NP [address] [place] [address] [facility] [address] [place] [address] Referral ID Status Reason Start Date Expiration Date Visits Requested Visits Authorized [id number] Pending Review Specialty Services Required 12/25/2022 12/25/2023 1 1 [facility] Consultation (Routine) - Closed Specialty Diagnoses / Procedures Referred By Contac t Referred To Contact Pulmonary Disease / Pulmonology Diagnoses Primary hypertension Morbid obesity, unspecified obesity type (HCC) Procedures CA OFFICE/OUTPATIENT NEW HIGH MDM 60-74 MINUTES Tanika Ragsdale NP [address] [place] [address] [facility] [address] [place] [address] Referral ID Status Reason Start Date Expiration Date V isits Requested Visits Authorized [id number] Closed Specialty Services Required 12/25/2022 12/25/2023 1 1 * Consultation (Elective) - Authorized Specialty Diagnoses / Procedures Referred By Contac t Referred To Contact Cardiology Diagnoses Primary hypertension Morbid obesity, unspecified obesity type (HCC) Prediabetes Procedures CA OFFICE/OUTPATIENT NEW HIGH MDM 60-74 MINUTES Tanika Ragsdale NP [address] [place] [address] [facility] [address] [place] [address] Referral ID Status Reason Start Date Expiration Date Visits Requested Visits Authorized [id number] Authorized Specialty Services Required 12/25/2022 12/25/2023 1 1 [facility] Consultation (Routine) - Closed Specialty Diagnoses / Procedures Referred By Contac t Referred To Contact Pulmonary Disease / Pulmonology Diagnoses Primary hypertension Morbid obesity, unspecified obesity type (HCC) Procedures CA OFFICE/OUTPATIENT NEW HIGH [facility] 60-74 MINUTES Tanika Ragsdale NP [address] [place] [address] [facility] [address] [place] [address] Referral ID Status Reason Start Date Expiration Date V isits Requested Visits Authorized [id number] Closed Specialty Services Required 12/25/2022 12/25/2023 1 1 * Consultation (Elective) - Closed Specialty Diagnoses / Procedures Referred By Contac t Referred To Contact Cardiology Diagnoses Primary hypertension Morbid obesity, unspecified obesity type (HCC) Prediabetes Procedures CA OFFICE/OUTPATIENT [facility] 60-74 MINUTES Tanika Ragsdale NP [address] [place] [address] [facility] [address] [place] [address] Referral ID Status Reason Start Date Expiration Date V isits Requested Visits Authorized [id number] Closed Specialty Services Required 12/25/2022 12/25/2023 1 1 [facility])No reason for referral [facility] Work [facility]: Instructions Name Dates Details Patient Instructions Indication:Lymphedema of arm Start:19-Aug-2013 Instruction Type:Provider Instructions for Treatment Patient Instructions Indication:Benign essential hypertension Start:22-Jan-2012 Instruction Type:Provider Instructions for Treatment Chief Complaint and Reason for Visit Chief Complaint leg pain Chief Complaint leg pain dizziness Chief Complaint leg pain dizziness DYSPNEA ON EXERTION DYSPNEA ON EXERTION Chief Complaint leg pain dizziness DYSPNEA ON EXERTION DYSPNEA ON EXERTION SCREENING Chief Complaint DYSPNEA ON EXERTION DYSPNEA ON EXERTION SCREENING dizziness Chief Complaint Admit Date CVA August 04, 2024 6:1 3pm Cerebrovascular accident August 04 7:31pm Cerebrovascular accident August 05, 2024 1 :04pm 30 DAY MONITOR August 13, 2024 7:00am 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 August 13, 2024 11:54am Palpitations August 27, 2024 11:50 pm INT ORDERS November 11, 2024 4:5 8pm Reason for Visit Admit Date Abscess, periapical August 04, 2024 6:1 3pm Brain TIA August 04, 2024 6:1 3pm CVA (cerebral vascular accident) July 082024 6:13pm Hypertension August 04, 2024 6:1 3pm Advance Directives No Advanced Directives Records Found Advance Directive Response Recorded Date/ Time Living Will Yes September 19, 2022 8:40pm Power of Harvest Worker Fruit Yes September 19 8:40pm Name of Medical Power of Harvest Worker Fruit KIMBERLY Eller September 19, 2022 8:40pm Advance Directive Response Recorded Date/ Time Name of Medical Power of Harvest Worker Fruit KIMBERLY Eller September 19, 2022 8:40pm Name of Medical Power of Harvest Worker Fruit Chai Rinaldi October 15, 2022 11:42am Living Will Yes October 15, 2022 11:42am Power of Harvest Worker Fruit Yes October 15 11:42am Advance Directive Response Recorded Date/ Time Name of Medical Power of Harvest Worker Fruit CHAI RINALDI- Laci USBAND February 17, 2023 6:24pm Living Will Yes February 17, 2 023 6:24pm Power of Harvest Worker Fruit Yes February 17, 2023 6:24pm Latest Code Status on File Code Status Date Activated Date Inactivated Comments Full Code 04/11/2023 9:27 AM 04/11/2023 12:32 PM Latest Code Status on File Code Status Date Activated Date Inactivated Comments Full Code 04/11/2023 9:27 AM 04/11/2023 12:32 PM Latest Code Status on File Code Status Date Activated Date Inactivated Comments Full Code 05/14/2023 5:34 PM 05/15/2023 4:02 PM Code Status History Code Status Date Activated Date Inactivated Comments Full Code 05/14/2023 10:22 AM 05/14/2023 5:34 PM Full Code 04/11/2023 9:27 AM 04/11/2023 12:32 PM Latest Code Status on File Code Status Date Activated Date Inactivated Comments Full Code 05/14/2023 5:34 PM 05/15/2023 4:02 PM Code Status History Code Status Date Activated Date Inactivated Comments Full Code 05/14/2023 10:22 AM 05/14/2023 5:34 PM Full Code 04/11/2023 9:27 AM 04/11/2023 12:32 PM Date Activated Date Inactivated Comments 05/14/2023 5:34 PM 05/15/2023 4:02 PM Date Activated Date Inactivated Comments 05/14/2023 10:22 AM 05/14/2023 5:34 PM Date Activated Date Inactivated Comments 04/11/2023 9:27 AM 04/11/2023 12:32 PM Date Activated Date Inactivated Comments 05/14/2023 5:34 PM 05/15/2023 4:02 PM Date Activated Date Inactivated Comments 05/14/2023 10:22 AM 05/14/2023 5:34 PM Date Activated Date Inactivated Comments 04/11/2023 9:27 AM 04/11/2023 12:32 PM Advance Directive Response Recorded Date/ Time Do you have a Healthcare Power of Harvest Worker Fruit? Yes August 27, 2024 11:55pm Do you have a Healthcare Power of Harvest Worker Fruit? No August 04, 2024 7:31pm Family History No Family History Records Found Relationship Condition Age at Onset Recorded Date/T donald father Cardiac disease Unknown Myocardial infarction Unknown Acute poliomyelitis Unknown Asthma Unknown Summary Purpose Additional Source Comments Goals (unrecognized section and content) Goals may be documented in a n alternate sectionGoals may be documented in an alternate sectionGoals may be documented in an alternate sectionGoals may be documented in an alternate sectionGoals may be documented in an alternate sectionGoals may be documented in an alternate sectionGoals may be documented in an alternate sectionGoals may be documented in an alternate section Care Teams (unrecognized sec tion and content) Team Status: Active Member Role Status Dates Dr. John Barboza MD Family Provider Active Dr. John Barboza MD Primary Care Provider Activ e Team Status: Inactive Member Role Status Dates Dr. John Barboza MD Primary Care Provider Activ e Dr. Reg Pinon MD Attending Provider, Referring Pr ovider Active Team Status: Inactive Member Role Status Dates Dr. John Barboza MD Primary Care Provider, Atte nding Provider Active Team Status: Inactive Member Role Status Dates Dr. John Barboza MD Primary Care Provider Activ e Dr. Rohit Dempsey MD Emergency Provider Active Team Status: Inactive Member Role Status Dates Dr. John Barboza MD Primary Care Provider Activ e Dr. Rohit Dempsey MD Attending Provider, Emergency Provider Active Team Status: Inactive Member Role Status Dates Dr. John Barboza MD Primary Care Provider Activ e John CASAS MD Attending Provider Active Team Status: Inactive Member Role Status Dates Dr. John Barboza MD Primary Care Provider Activ e Dr. Christiano De La Vega DO Emergency Provider Active Team Status: Active Member Role Status Dates Dr. John Barboza MD Primary Care Provider, Referring Provider, Other Provider Active Dr. Clif Johnson MD Attending Provider Active Team Status: Inactive Member Role Status Dates Dr. John Barboza MD Primary Care Provider, Attending Provider, Referring Provider Active Team Status: Inactive Member Role Status Dates Dr. John Barboza MD Primary Care Provider Activ e Dr. Christiano De La Vega DO Attending Provider, Emergency P rovider Active Outpatient Services Director Relationship Specialty Start Date End Date Bryan Barboza [address] [facility] [place] [address] [place] [phone] PCP - General Family Medicine 12/12/22 Josef Elder MD [address] [place] [address] [address] [place], [place] [id number] Surgeon General Surgery 12/23/22 Outpatient Services Director Relationship Specialty Start Date End Date Bryan Barboza [address] [facility] [place] [address] [place] [address] PCP - General Family Medicine 12/12/22 Josef Elder MD [address] [place] [address] [address] [place] [address] Surgeon General Surgery 12/23/22 Outpatient Services Director Relationship Specialty Start Date End Date Bryan Barboza [address] [place] [address] [place] [phone] PCP - General Family Medicine 12/12/22 Josef Elder MD [address] [place] [address] [address] [place], [place] [id number] Surgeon General Surgery 12/23/22 Outpatient Services Director Relationship Specialty Start Date End Date [facility] [address] [facility] [address] [place] [phone] PCP - General Family Medicine 12/12/22 Josef Elder MD [address] [place] [address] [address] [place] [address] Surgeon General Surgery 12/23/22 Outpatient Services Director Relationship Specialty Start Date End Date Bryan Barboza [address] [facility] [address] [place] [phone] PCP - General Family Medicine 12/12/22 Josef Elder MD [address] [place] [address] [address] [place] [address] Surgeon General Surgery 12/23/22 Outpatient Services Director Relationship Specialty Start Date End Date Bryan Barboza [address] [facility] [address] [place] [phone] PCP - General Family Medicine 12/12/22 Josef Elder MD [address] [place] [address] [address] [place] [address] Surgeon General Surgery 12/23/22 Outpatient Services Director Relationship Specialty Start Date End Date Bryan Barboza [address] [place] [address] [place] [phone] PCP - General Family Medicine 12/12/22 Josef Elder MD [address] [place], [place] [id number] Surgeon General Surgery 12/23/22 Outpatient Services Director Relationship Specialty Start Date End Date Bryan Barboza [address] [place] [address] [place] [phone] PCP - General Family Medicine 12/12/22 Josef Elder MD [address] [facility] [address] [place], [place] [id number] Surgeon General Surgery 12/23/22 Team Status: Inactive Member Role Status Dates Dr. John Barboza MD Primary Care Provider Activ frank Trevino MD Emergency Provider Active Outpatient Services Director Relationship Specialty Start Date End Date Bryan Barboza [address] [place] [place] [phone] PCP - General Family Medicine 12/12/22 Josef Elder MD [address] [facility] [address] [place], [place] [id number] Surgeon General Surgery 12/23/22 Outpatient Services Director Relationship Specialty Start Date End Date Bryan Barboza [address] [place] [address] [place] [phone] PCP - General Family Medicine 12/12/22 Josef Eledr MD [address] [place] [address] [address] [place] [address] Surgeon General Surgery 12/23/22 Outpatient Services Director Relationship Specialty Start Date End Date Bryan Barboza [address] [place] [place] [phone] PCP - General Family Medicine 12/12/22 Josef Elder MD [address] [place] [address] Street [address] [place] [address] Surgeon General Surgery 12/23/22 Outpatient Services Director Relationship Specialty Start Date End Date Bryan Barboza [email or web address] [place] [address] [place] [phone] PCP - General Family Medicine 12/12/22 Josef Elder MD [address] [place] [address] [address] [place] [address] Surgeon General Surgery 12/23/22 Outpatient Services Director Relationship Specialty Start Date End Date Bryan Barboza [address] [place] [place] [phone] PCP - General Family Medicine 12/12/22 Josef Elder MD [address] [facility] [address] [place] [address] Surgeon General Surgery 12/23/22 Outpatient Services Director Relationship Specialty Start Date End Date Bryan Barboza [address] [place] [address] [place] [phone] PCP - General Family Medicine 12/12/22 Josef Elder MD [address] [place] [address] [address] [place] [address] Surgeon General Surgery 12/23/22 Outpatient Services Director Relationship Specialty Start Date End Date Bryan Barboza [address] [place] [address] [place] [phone] PCP - General Family Medicine 12/12/22 Josef Elder MD [address] [place] [address] [address] [place] [address] Surgeon General Surgery 12/23/22 Outpatient Services Director Relationship Specialty Start Date End Date Bryan Barboza [email or web address] [place] [address] [place] [phone] PCP - General Family Medicine 12/12/22 Josef Elder MD [address] [place] [address] [address] [place] [address] Surgeon General Surgery 12/23/22 Outpatient Services Director Relationship Specialty Start Date End Date Bryan Barboza [address] [place] [address] [place] [phone] PCP - General Family Medicine 12/12/22 Josef Elder MD [address] [facility] [address] [place] [address] Surgeon General Surgery 12/23/22 Outpatient Services Director Relationship Specialty Start Date End Date Bryan Barboza [address] [place] [address] [place] [phone] PCP - General Family Medicine 12/12/22 Josef Elder MD [address] [place] [address] [address] [place] [address] Surgeon General Surgery 12/23/22 Outpatient Services Director Relationship Specialty Start Date End Date Bryan Barboza [address] [place] [place] [phone] PCP - General Family Medicine 12/12/22 Josef Elder MD [address] [place] [address] [address] [place] [address] Surgeon General Surgery 12/23/22 Outpatient Services Director Relationship Specialty Start Date End Date Bryan Barboza [email or web address] [place] [phone] PCP - General Family Medicine 12/12/22 Josef Elder MD [address] [place] [address] [address] [place] [address] Surgeon General Surgery 12/23/22 Outpatient Services Director Relationship Specialty Start Date End Date Bryan Barboza [address] [place] [place] [phone] PCP - General Family Medicine 12/12/22 Josef Elder MD [address] [facility] [address] [place] [address] Surgeon General Surgery 12/23/22 Outpatient Services Director Relationship Specialty Start Date End Date Bryan Barboza [address] [place] [place] [phone] PCP - General Family Medicine 12/12/[address] [place] [address] Surgeon General Surgery 12/23/22 Pretty Rosa RN Registered Nurse Bariatrics 04/29/23 Outpatient Services Director Relationship Specialty Start Date End Date Bryan Barboza [address] [place] [address] [place] [phone] PCP - General Family Medicine 12/12/22 Josef Elder MD [address] [place] [address] [address] [place] [address] Surgeon General Surgery 12/23/22 Pretty Rosa RN Registered Nurse Bariatrics 04/29/23 Outpatient Services Director Relationship Specialty Start Date End Date Bryan Barboza [address] [place] [place] [address] PCP - General Family Medicine 12/12/22 Josef Elder MD [address] [place] [address] [address] [place] [address] Surgeon General Surgery 12/23/22 Pretty Rosa RN Registered Nurse Bariatrics 04/29/23 Outpatient Services Director Relationship Specialty Start Date End Date Bryan Barboza [address] [place] [place] [phone] PCP - General Family Medicine 12/12/22 Josef Elder MD [address] [place] [address] [address] [place] [address] Surgeon General Surgery 12/23/22 Pretty Rosa RN Registered Nurse Bariatrics 04/29/23 Outpatient Services Director Relationship Specialty Start Date End Date Bryan Barboza [address] [place] [address] [place] [phone] PCP - General Family Medicine 12/12/22 Josef Elder MD [address] [place] [address] Surgeon General Surgery 12/23/22 Pretty Rosa, RN Registered Nurse Bariatrics 04/29/23 Outpatient Services Director Relationship Specialty Start Date End Date Bryan Barboza [address] [place] [place] [phone] PCP - General Family Medicine 12/12/22 Josef lEder MD [address] [place] [address] [address] [place] [address] Surgeon General Surgery 12/23/22 Pretty Rosa, RN Registered Nurse Bariatrics 04/29/23 Outpatient Services Director Relationship Specialty Start Date End Date Bryan Barboza [address] [place] [place] [address] PCP - General Family Medicine 12/12/22 Josef Elder MD [address] [place] [address] Surgeon General Surgery 12/23/22 Pretty Rosa, RN Registered Nurse Bariatrics 04/29/23 Outpatient Services Director Relationship Specialty Start Date End Date Bryan Barboza [address] [place] [place] [phone] PCP - General Family Medicine 12/12/22 Josef Elder MD [address] [place] [address] Surgeon General Surgery 12/23/22 Pretty Rosa, RN Registered Nurse Bariatrics 04/29/23 Outpatient Services Director Relationship Specialty Start Date End Date Bryan Barboza [address] [place] [phone] PCP - General Family Medicine 12/12/22 Josef Elder MD [address] [place] [address] Surgeon General Surgery 12/23/22 Pretty Rosa, RN Registered Nurse Bariatrics 04/29/23 Outpatient Services Director Relationship Specialty Start Date End Date Bryan Barboza [address] [place] [phone] PCP - General Family Medicine 12/12/22 Josef Elder MD [address] [place] [address] Surgeon General Surgery 12/23/22 Pretty Rosa RN Registered Nurse Bariatrics 04/29/23 Outpatient Services Director Relationship Specialty Start Date End Date Bryan Barboza [address] [place] [phone] PCP - General Family Medicine 12/12/22 Josef Elder MD [address] [place] [address] Surgeon General Surgery 12/23/22 Pretty Rosa RN Registered Nurse Bariatrics 04/29/23 Outpatient Services Director Relationship Specialty Start Date End Date Bryan Barboza [address] [place] [phone] PCP - General Family Medicine 12/12/22 Josef Elder MD [address] [place] [address] Surgeon General Surgery 12/23/22 Pretty Rosa, RN Registered Nurse Bariatrics 04/29/23 Outpatient Services Director Relationship Specialty Start Date End Date Bryan Barboza [address] [place] [address] PCP - General Family Medicine 12/12/22 Josef Elder MD [address] [place] [address] [address] [place] [address] Surgeon General Surgery 12/23/22 Pretty Rosa, RN Registered Nurse Bariatrics 04/29/23 Outpatient Services Director Relationship Specialty Start Date End Date Bryan Barboza [address] [facility] [address] [place] [phone] PCP - General Family Medicine 12/12/22 Josef Elder MD [address] [place] [address] [address] [place] [address] Surgeon General Surgery 12/23/22 Pretty Rosa, RN Registered Nurse Bariatrics 04/29/23 Outpatient Services Director Relationship Specialty Start Date End Date Bryan Barboza [address] [facility] [address] [place] [phone] PCP - General Family Medicine 12/12/22 Josef Elder MD [address] [place], [place] [id number] Surgeon General Surgery 12/23/22 Pretty Webster, RN Registered Nurse Bariatrics 04/29/23 Outpatient Services Director Relationship Specialty Start Date End Date Bryan Barboza [address] [facility] [address] [place] [address] PCP - General Family Medicine 12/12/22 Josef Elder MD [address] [place] [address] Surgeon General Surgery 12/23/22 Pretty Webster, RN Registered Nurse Bariatrics 04/29/23 Outpatient Services Director Relationship Specialty Start Date End Date Bryan Barboza [address] [facility] [address] [place] [phone] PCP - General Family Medicine 12/12/22 Josef Elder MD [address] [place] [address] [address] [place] [address] Surgeon General Surgery 12/23/22 Pretty Webster, RN Registered Nurse Bariatrics 04/29/23 Team Status: Active Member Role/Relationship Status Dates Dr. Bryan Barboza MD Primary Care Provider Acti ve Team Status: Inactive Member Role/Relationship Status Dates Dr. Bryan Barboza MD Primary Care Provider Acti ve Start: August 04, 2024 End: August 05, 2024 Dr. Josef Jang DO Emergency Provider Active Start: August 04, 2024 End: August 05, 2024 Dr. Dany Hastings MD Admit Provider Active Start: August 04, 2024 End: August 05, 2024 Dr. Dany Hastings MD Other Provider Active Start: August 04, 2024 End: August 05, 2024 Dr. Reno Hagan DO Attending Provider Active Start: August 04, 2024 End: August 05, 2024 Marty Umaña MD Other Provider Active Start: 2024 End: August 05, 2024 Dr. Leida Jones MD Other Provider Active Start: August 04, 2024 End: August 05, 2024 Maddie Woody MD Other Provider Active Start : August 04, 2024 End: August 05, 2024 Dr. Taniya Boss DO Other Provider Active St art: August 04, 2024 End: August 05, 2024 Dr. Ana Pinto MD Other Provider Active Start: August 04, 2024 End: August 05, 2024 Dr. Italo Zuniga MD Other Provider Active Sta rt: August 04, 2024 End: August 05, 2024 Dr. Dalila Ramon MD Other Provider Active Start : August 04, 2024 End: August 05, 2024 Dr. Noman Montelongo MD Other Provider Active Start: August 04, 2024 End: August 05, 2024 Dr. Daniel Benton MD Other Provider Active Start : August 04, 2024 End: August 05, 2024 Dr. Ismael Aguirre MD Other Provider Active Sta rt: August 04, 2024 End: August 05, 2024 Viola Hicks MD Other Provider Active Start : August 04, 2024 End: August 05, 2024 Dr. Rui Licea MD Other Provider Active St art: August 04, 2024 End: August 05, 2024 Dr. Molly Lee MD Other Provider Active Start : August 04, 2024 End: August 05, 2024 Dr. Nayeli Anderson MD Other Provider Active Sta rt: August 04, 2024 End: August 05, 2024 Dr. Allegra Dietz MD Other Provider Active Start: August 04, 2024 End: August 05, 2024 Dr. Edin Edmonds MD Other Provider Active St art: August 04, 2024 End: August 05, 2024 Dr. Austen Hill MD Other Provider Active Star t: August 04, 2024 End: August 05, 2024 Dr. Solitario Blair MD Other Provider Active St art: August 04, 2024 End: August 05, 2024 Dr. Allyn Cazares MD Other Provider Active Start: August 04, 2024 End: August 05, 2024 Chema Oates MD Other Provider Active Start: August 04, 2024 End: August 05, 2024 Team Status: Active Member Role/Relationship Status Dates Dr. Bryan Barboza MD Primary Care Provider Acti ve Start: August 04, 2024 Dr. Josef Jang DO Emergency Provider Active Start: August 04, 2024 Dr. Dany Hastings MD Admit Provider Active Start: August 04, 2024 Dr. Dany Hastings MD Attending Provider Active Start: August 04, 2024 Dr. Dany Hastings MD Other Provider Active Start: August 04, 2024 Team Status: Active Member Role/Relationship Status Dates Dr. Bryan Barboza MD Primary Care Provider Acti ve Start: August 05, 2024 Dr. Walter Dallas MD Attending Provider Active Start: August 05, 2024 Team Status: Active Member Role/Relationship Status Dates Dr. Bryan Barboza MD Primary Care Provider Acti ve Start: August 05, 2024 Dr. Josef Jang DO Emergency Provider Active Start: August 05, 2024 Dr. Dany Hastings MD Admit Provider Active Start: August 05, 2024 Dr. Dayn Hastings MD Other Provider Active Start: August 05, 2024 Dr. Reno Hagan DO Attending Provider Active Start: August 05, 2024 Dr. Reno Hagan DO Other Provider Active Start: August 05, 2024 Marty Umaña MD Other Provider Active Start: Ma 2024 Dr. Leida Jones MD Other Provider Active Start: August 05, 2024 Maddie Woody MD Other Provider Active Start : August 05, 2024 Dr. Taniya Boss DO Other Provider Active St art: August 05, 2024 Dr. Ana Pinto MD Other Provider Active Start: August 05, 2024 Dr. Italo Zuniga MD Other Provider Active Sta rt: August 05, 2024 Dr. Dalila Ramon MD Other Provider Active Start : August 05, 2024 Dr. Noman Montelongo MD Other Provider Active Start: August 05, 2024 Dr. Daniel Benton MD Other Provider Active Start : August 05, 2024 Dr. Ismael Aguirre MD Other Provider Active Sta rt: August 05, 2024 Viola Hicks MD Other Provider Active Start : August 05, 2024 Dr. Rui Licea MD Other Provider Active St art: August 05, 2024 Dr. Molly Lee MD Other Provider Active Start : August 05, 2024 Dr. Nayeli Anderson MD Other Provider Active Sta rt: August 05, 2024 Dr. Allegra Dietz MD Other Provider Active Start: August 05, 2024 Dr. Edin Edmonds MD Other Provider Active St art: August 05, 2024 Dr. Austen Hill MD Other Provider Active Star t: August 05, 2024 Dr. Solitario Blair MD Other Provider Active St art: August 05, 2024 Dr. Allyn Cazares MD Other Provider Active Start: August 05, 2024 Chema Oates MD Other Provider Active Start: August 05, 2024 Team Status: Active Member Role/Relationship Status Dates Dr. Bryan Barboza MD Primary Care Provider Acti ve Start: August 13, 2024 Dr. Darren Stewart MD Attending Provider Active Start: August 13, 2024 Dr. Reno Hagan DO Referring Provider Active Start: August 13, 2024 Team Status: Active Member Role/Relationship Status Dates Dr. Bryan Barboza MD Primary Care Provider Acti ve Start: August 13, 2024 Dr. Reno Hagan DO Attending Provider Active Start: August 13, 2024 Dr. Reno Hagan DO Referring Provider Active Start: August 13, 2024 Team Status: Inactive Member Role/Relationship Status Dates Dr. Bryan Barboza MD Primary Care Provider Acti ve Start: August 27, 2024 End: August 28, 2024 Dr. Ad Encarnacion DO Attending Provider Activ e Start: August 27, 2024 End: August 28, 2024 Dr. Ad Encarnacion DO Emergency Provider Activ e Start: August 27, 2024 End: August 28, 2024 Team Status: Inactive Member Role/Relationship Status Dates Dr. Bryan Barboza MD Primary Care Provider Acti ve Start: November 11, 2024 End: November 11, 2024 Dr. Bryan Barboza MD Attending Provider Active Start: November 11, 2024 End: November 11, 2024 Dr. Bryan Barboza MD Referring Provider Active Start: November 11, 2024 End: November 11, 2024 Reason for Visit (unrecogniz ed section and content) Reason Comments Weight Management NEW Specialty Diagnoses / Procedures Referred By Enrique elizalde Referred To Contact Bariatrics Diagnoses Morbid (severe) obesity due to excess calories (HCC) Procedures EVAL AND TREAT Bryan Barboza [address] [place] [address] [facility] [address] [place] [address] Referral ID Status Reason Start Date Expiration Date V isits Requested Visits Authorized [id number] Pending Review 11/07/2022 11/07/2023 1 1 Reason Onset Date Comments Financial File 12/24/2022 Financial File 2 023 Surgery Scheduling 12/24/2022 Initial Sched uling - Orders Pended Reason Comments Nutrition Counseling BNA Initial Reason Comments Weight Loss D/E new 1 of 3 Reason Comments New Patient Reason Comments Weight Loss D/E 2 of 3 Reason Onset Date Comments Abnormal Lab 02/17/2023 Low normal vitam in D Reason Comments EGD Reason Comments Pre-op Exam Specialty Diagnoses / Procedures Referred By Enrique elizalde Referred To Contact Cardiology Diagnoses Primary hypertension Morbid obesity, unspecified obesity type (HCC) Prediabetes Procedures CA OFFICE/OUTPATIENT NEW HIGH MDM 60-74 MINUTES Tanika Ragsdale, STONEY [address] [place] [address] [facility] [address] [place] [address] Referral ID Status Reason Start Date Expiration Date V isits Requested Visits Authorized [id number] Closed Specialty Services Required 12/25/2022 12/25/2023 1 1 Reason Onset Date Comments Abnormal Lab 03/21/2023 Reason Comments Weight Loss D/E final 3 of 3 Specialty Diagnoses / Procedures Referred By Enrique elizalde Referred To Contact Diagnoses Gastro-esophageal reflux disease without esophagitis Gastro-esophageal reflux disease without esophagitis [K21.9] Procedures CA EGD TRANSORAL BIOPSY SINGLE/MULTIPLE EGD WITH BIOPSY Josef Elder MD [address] [place] [address] [facility] [address] [place] [address] Referral ID Status Reason Start Date Expiration Date Visits Re quested Visits Authorized [id number] 1 1 Reason Onset Date Comments Results 03/26/2023 Reason Comments Weight Management Final pre op Reason Onset Date Comments Anticoagulation 04/30/2023 Lovenox Specialty Diagnoses / Procedures Referred By [place] t Referred To Contact Diagnoses Morbid (severe) obesity due to excess calories (HCC) Morbid (severe) obesity due to excess calories (HCC) [E66.01] Procedures CA LAPS GSTRC RSTRICTIV PX LONGITUDINAL GASTRECTOMY CA UNLISTED LAPAROSCOPIC PROCEDURE LIVER LAPAROSCOPIC SLEEVE GASTRECTOMY WITH LIVER WEDGE BIOPSY POSSIBLE OPEN UNLISTED LAPAROSCOPIC PROCEDURE LIVER Josef Elder MD [address] [place] [address] [facility] [address] [place] [address] Referral ID Status Reason Start Date Expiration Date Visits Re quested Visits Authorized [id number] 1 1 Reason Comments Bariatrics Post Op Follow-up 1W Reason Comments Bariatrics Post Op Follow-up 1M Reason Onset Date Comments Error (VOID this visit) 01/29/2023 Reason Comments Bariatrics Post Op Follow-up 3M Reason Onset Date Comments Abnormal Lab 10/30/2023 Reason Comments Bariatrics Post Op Follow-up 6M Reason Comments Bariatrics Post Op Follow-up 12M Reason Onset Date Comments Abnormal Lab 04/28/2024 Elevated ferriti n, elevated calcium Reason Comments Bariatrics Post Op Follow-up Pop fu 18m Continuous Active and Recently Administ ered Medications (unrecognized section and content) Medication Order 04/09/2023 04/10/2023 04/11/2023 sodium chloride 0.9 % infusion 50 mL/hr, IntraVENous, Continuous, Starting on Fri04/11/23 at 0930, Preprocedure 0930 (Canceled Entry - Provider: Automatic Discharge Provider - Comment: Automatically canceled at discontinue of medication order) Scheduled Medication Order 05/13/2023 05/14/202305/15/2023 acetaminophen (Ofirmev) IVPB 1,000 mg (CANCELED) 1,000 mg, IntraVENous, at 400 mL/hr, Administer over 15 Minutes, Every 6 hours, First dose on Fri05/14/23 at 1745, For 24 hours, Phase II/On Unit 1819 (New Bag - Provider: Catrachita Dobson, RN)1834 (Stopped - Provider: Catrachita Dobson, RN) 0030 (New Bag - Provider: Harshad Dawson RN)0045 (Stopped - Provider: Harshad Dawson, RN)0557 (New Bag - Provider: Harshad Dawson, RN)0612 (Stopped - Provider: Harshad Dawson, ALIS) acetaminophen (Tylenol) tablet 1,000 mg (COMPLETED) 1,000 mg, Oral, Once, On Fri05/14/23 at 1030, For 1 dose, Preprocedure, Administer 60 minutes prior to surgery. 1038 (Given - Provider: Sera Momin RN) ceFAZolin in dextrose 4% (Ancef) IVPB 2,000 mg (COMPLETED) 2,000 mg, IntraVENous, Administer over 30 Minutes, Coin Machine Mechanic to O.R., On Fri05/14/23 at 1030, For 1 dose, Preprocedure, Administer within 1 hour prior to incision. Repeat in 3-4 hours after initial dose if still intra-op. Default Settings:Auto-dosed by Weight Coin Machine Mechanic to O.R x 1 dose Auto-dosed: Pt Wt<119.9kg-2gm, >120kg-3gm premix bag, Suspected Indication (Select all that apply): Surgical Prophylaxis 1221 (Given - Provider: Davian Montejo CRNA) enoxaparin (Lovenox) syringe 40 mg 40 mg, SubCUTAneous, Every 12 hours scheduled (2 times per day), First dose on Fri05/14/23 at 2200, Phase II/On Unit, Indication of Use: Prophylaxis-DVT/PE 2022 (Given - Provider: Harshad Dawson, ALIS) 0937 (Given - Provider: Santi Santamaria RN) famotidine (Pepcid) 20 mg in sodium chloride (PF) 0.9 % 10 mL injection (CANCELED) 20 mg, IntraVENous, Administer over 2 Minutes, Every 12 hours scheduled (2 times per day), First dose on Fri05/14/23 at 2100, Phase II/On Unit, IV Push over minimum of 2 minutes - Dilute with 10 mL NS 2022 (Given - Provider: Harshad Dawson RN) famotidine (Pepcid) tablet 20 mg (COMPLETED)(Linked Group 1) 20 mg, Oral, Once, On Fri05/14/23 at 1030, For 1 dose, Preprocedure, IV or Oral 1037 (Given - Provider: Sera Momin RN) famotidine (Pepcid) tablet 20 mg 20 mg, Oral, 2 times daily, First dose on Fri05/15/23 at 0900 0937 (Given - Provid er: Santi Santamaria RN) heparin injection 5,000 Units (COMPLETED) 5,000 Units, SubCUTAneous, Once, On Fri05/14/23 at 1030, For 1 dose, Preprocedure 1038 (Given - Provider: Sera Momin, ALIS) levothyroxine (Synthroid, Levoxyl) tablet 100 mcg 100 mcg, Oral, Daily before breakfast, First dose on Fri05/15/23 at 0845, Tube feeding (TF) interaction, obtain physician order to manage, recommend holding TF for 30 minutes before and after dose. 0937 (Given - Provid er: Santi Santamaria RN) sodium chloride 0.9% (NS) flush 10 mL 10 mL, IntraVENous, Every 12 hours scheduled (2 times per day), First dose on Fri05/14/23 at 2100, Phase II/On Unit 2021 (Given - Provider: Harshad Dawson RN) 0900 (Given - Provider: Santi Santamaria RN) Continuous Medication Order 05/13/2023 05/14/2023 05/15/2023 dextrose 5 % and sodium chloride 0.45 % with KCl 20 mEq/L infusion 100 mL/hr, IntraVENous, Continuous, Starting on Fri05/14/23 at 1745, Phase II/On Unit 1823 (New Bag - Provider: Catrachita Dobson RN) 0353 (New Bag - Provider: Harshad Dawson RN)1335 (Stopped - Provider: Santi Santamaria RN) lactated Ringer's (LR) infusion (CANCELED) 50 mL/hr, IntraVENous, Continuous, Starting on Fri05/14/23 at 1030, Preprocedure, Upon admission to sameday - please start iv if patient does not have iv access. Use 500ml NS for patients on dialysis. 1038 (New Bag - Provider: Sera Momin RN)1208 (Continued by Anesthesia - Provider: Davian Montejo CRNA)1311 (Paused - Provider: Davian Montejo CRNA - Comment: Switch to gravity)1312 (New Bag - Provider: Davian Montejo CRNA)1322 (Stopped - Provider: Davian Montejo CRNA) PRN Medication Order 05/13/2023 05/14/2023 05/15/2023 acetaminophen (Tylenol) tablet 650 mg 650 mg, Oral, Every 6 hours PRN, mild pain (1-3), Starting on Marina 05/15/23 at 0835, Maximum dose of acetaminophen is 4000 mg from all sources in 24 hours. albuterol (2.5 MG/3ML) 0.083% nebulizer solution 2.5 mg 2.5 mg, Nebulization, Every 6 hours PRN, wheezing, Starting on Fri05/14/23 at 1800, Phase II/On Unit ALPRAZolam (Xanax) disintegrating tablet 0.25 mg (COMPLETED) 0.25 mg, Oral, Once PRN, anxiety, Starting on Fri05/14/23 at 1022, For 1 dose, Preprocedure, Please do not administer prior to obtaining consent and/or history and physical. 1037 (Given - Provider: Sera Momin RN) hydrALAZINE (Apresoline) injection 20 mg 20 mg, IntraVENous, Every 6 hours PRN, high blood pressure, Give for SBP >160, hold for HR >100, 2nd line anti-HTN, Starting on Fri05/14/23 at 1734, Phase II/On Unit HYDROmorphone (Dilaudid) injection 0.25 mg(Linked Group 2) 0.25 mg, IntraVENous, Every 3 hours PRN, moderate pain (4-6), Starting on Fri05/14/23 at 1734, Phase II/On Unit, If oral and IV narcotics ordered, use oral first and only use IV if oral is ineffective or cannot take oral. Do Not give oral and IV within 1 hour of each other unless specifically ordered. 0046 (See Alternativ e - Provider: Harshad Dawson RN) HYDROmorphone (Dilaudid) injection 0.5 mg(Linked Group 2) 0.5 mg, IntraVENous, Every 3 hours PRN, severe pain (7-10), Starting on Fri05/14/23 at 1734, Phase II/On Unit, If oral and IV narcotics ordered, use oral first and only use IV if oral is ineffective or cannot take oral. Do Not give oral and IV within 1 hour of each other unless specifically ordered. 0046 (Given - Provid er: Harshad Dawson RN) HYDROmorphone (Dilaudid) injection 0.5 mg (CANCELED) 0.5 mg, IntraVENous, Every 5 min PRN, severe pain (7-10), Starting on Fri05/14/23 at 1344, For 4 doses, Recovery (only), Phase I and Phase II- Initial therapy for severe pain (7-10). Restricted to a 90 minute time frame starting when the patient can verbally state their pain score. If after 2 doses the pain score does not decrease by more than one point, then call the provider. If oral meds are utilized, do not return to initial therapy medications. 1430 (Given - Provider: Hailey Rossi RN) labetalol (Normodyne,Trandate) injection 20 mg 20 mg, IntraVENous, Every 6 hours PRN, high blood pressure, Give for SBP >160, hold for HR <50, 1st line anti-HTN, Starting on Fri05/14/23 at 1734, Phase II/On Unit LORazepam (Ativan) injection 0.5 mg (COMPLETED) 0.5 mg, IntraVENous, Once PRN, for anxiety or muscle spasm., Starting on Fri05/14/23 at 1344, For 1 dose, Recovery (only), For IV doses dilute dose with 1ml NS. 1430 (Given - Provider: Hailey Rossi RN) naloxone (Narcan) injection 0.4 mg 0.4 mg, IntraVENous, Every 5 min PRN, opioid reversal, respiratory depression, Starting on Fri05/14/23 at 1750, +++ For RR <10, pinpoint pupils, over sedation for opioid reversal - MUST notify civil litigation attorney provider immediately after first dose, may give IM or SQ if no IV access +++ ondansetron (Zofran) injection 4 mg(Linked Group 3) 4 mg, IntraVENous, Every 6 hours PRN, nausea, vomiting, Starting on Fri05/14/23 at 1734, Phase II/On Unit, 1st Line. Give IV if patient is unable to take orally. If inadequate response within 60 minutes, proceed to next-line agent or contact provider if no further options ordered. 0938 (Given - Provid er: Santi Santamaria RN) ondansetron ODT (Zofran-ODT) disintegrating tablet 4 mg(Linked Group 3) 4 mg, Oral, Every 8 hours PRN, nausea, vomiting, Starting on Fri05/14/23 at 1734, Phase II/On Unit, 1st Line. If inadequate response within 60 minutes, proceed to next-line agent or contact provider if no further options ordered. Patient should allow tablet to dissolve on tongue. Do not remove from blister pack until just before administering. 0938 (See Alternativ e - Provider: Santi Santamaria RN) oxyCODONE (Roxicodone) immediate release tablet 10 mg(Linked Group 4) 10 mg, Oral, Every 4 hours PRN, severe pain (7-10), Starting on Marina 05/15/23 at 0836 0938 (See Alternativ e - Provider: Santi Santamaria RN) oxyCODONE (Roxicodone) immediate release tablet 5 mg(Linked Group 4) 5 mg, Oral, Every 4 hours PRN, moderate pain (4-6), Starting on Marina 05/15/23 at 0836 0938 (Given - Provid er: Santi Santamaria RN) prochlorperazine (Compazine) injection 10 mg(Linked Group 5) 10 mg, IntraVENous, Every 6 hours PRN, nausea, vomiting, Starting on Fri05/14/23 at 1734, Phase II/On Unit, 2nd Line. Give IV if patient is unable to take orally. Give IM if patient is unable to take orally and does not have IV access. If inadequate response within 60 minutes, proceed to next-line agent for same PRN reason or contact provider if no further options ordered. prochlorperazine (Compazine) suppository 25 mg(Linked Group 5) 25 mg, Rectal, Every 12 hours PRN, nausea, vomiting, Starting on Fri05/14/23 at 1734, Phase II/On Unit, 2nd Line. Give CA if patient is unable to take orally or receive by injection. If inadequate response within 60 minutes, proceed to next-line agent for same PRN reason or contact provider if no further options ordered. prochlorperazine (Compazine) tablet 10 mg(Linked Group 5) 10 mg, Oral, Every 6 hours PRN, nausea, vomiting, Starting on Fri05/14/23 at 1734, Phase II/On Unit, 2nd Line. If inadequate response within 60 minutes, proceed to next-line agent for same PRN reason or contact provider if no further options ordered. sodium chloride 0.9 % infusion 5-250 mL/hr, IntraVENous, PRN, if patient receiving piggyback infusions and maintenance fluids are not ordered OR KVO fluids to protect IV site / prevent frequent line interruptions/ long duration, Starting on Fri05/14/23 at 1734, Phase II/On Unit, For piggyback infusion, administer at same rate as piggyback for a total of 25 mL. Enter 25 mL into dose field and piggyback rate into rate field of order. If piggyback is infusing at a rate less than 100 mL/hr, enter 25 mL into dose field and 100 mL/hr into rate field of order. For KVO fluids, enter rate of 20 mL/hr or less into rate field of order. sodium chloride 0.9% (NS) flush 10 mL 10 mL, IntraVENous, PRN, line care, Starting on Fri05/14/23 at 1734, Phase II/On Unit, After every IV line use sterile water irrigation solution (CANCELED) As needed, Starting on Fri05/14/23 at 1241, Intraprocedure 1241 (Given - Provider: Josef Elder MD - Comment: FOR SCOPES/INSTRUMENTS) Linked Groups Order Group 1: famotidine (Pepcid) tablet 20 mg (COMPLETED)Jump to med 20 mg, Oral, Once, On Fri05/14/23 at 1030, For 1 dose, Preprocedure, IV or Oral Or famotidine (Pepcid) 20 mg in sodium chloride (PF) 0.9 % 10 mL injection (COMPLETED) 20 mg, IntraVENous, Administer over 2 Minutes, Once, On Fri05/14/23 at 1030, For 1 dose, Preprocedure, IV or Oral Group 2: HYDROmorphone (Dilaudid) injection 0.25 mgJump to med 0.25 mg, IntraVENous, Every 3 hours PRN, moderate pain (4-6), Starting on Fri05/14/23 at 1734, Phase II/On Unit, If oral and IV narcotics ordered, use oral first and only use IV if oral is ineffective or cannot take oral. Do Not give oral and IV within 1 hour of each other unless specifically ordered. Or HYDROmorphone (Dilaudid) injection 0.5 mgJump to med 0.5 mg, IntraVENous, Every 3 hours PRN, severe pain (7-10), Starting on Fri05/14/23 at 1734, Phase II/On Unit, If oral and IV narcotics ordered, use oral first and only use IV if oral is ineffective or cannot take oral. Do Not give oral and IV within 1 hour of each other unless specifically ordered. Group 3: ondansetron ODT (Zofran-ODT) disintegrating tablet 4 mgJump to med 4 mg, Oral, Every 8 hours PRN, nausea, vomiting, Starting on Fri05/14/23 at 1734, Phase II/On Unit, 1st Line. If inadequate response within 60 minutes, proceed to next-line agent or contact provider if no further options ordered. Patient should allow tablet to dissolve on tongue. Do not remove from blister pack until just before administering. Or ondansetron (Zofran) injection 4 mgJump to med 4 mg, IntraVENous, Every 6 hours PRN, nausea, vomiting, Starting on Fri05/14/23 at 1734, Phase II/On Unit, 1st Line. Give IV if patient is unable to take orally. If inadequate response within 60 minutes, proceed to next-line agent or contact provider if no further options ordered. Group 4: oxyCODONE (Roxicodone) immediate release tablet 5 mgJump to med 5 mg, Oral, Every 4 hours PRN, moderate pain (4-6), Starting on Marina 05/15/23 at 0836 Or oxyCODONE (Roxicodone) immediate release tablet 10 mgJump to med 10 mg, Oral, Every 4 hours PRN, severe pain (7-10), Starting on Marina 05/15/23 at 0836 Group 5: prochlorperazine (Compazine) tablet 10 mgJump to med 10 mg, Oral, Every 6 hours PRN, nausea, vomiting, Starting on 05/14/23 at 1734, Phase II/On Unit, 2nd Line. If inadequate response within 60 minutes, proceed to next-line agent for same PRN reason or contact provider if no further options ordered. Or prochlorperazine (Compazine) injection 10 mgJump to med 10 mg, IntraVENous, Every 6 hours PRN, nausea, vomiting, Starting on 05/14/23 at 1734, Phase II/On Unit, 2nd Line. Give IV if patient is unable to take orally. Give IM if patient is unable to take orally and does not have IV access. If inadequate response within 60 minutes, proceed to next-line agent for same PRN reason or contact provider if no further options ordered. Or prochlorperazine (Compazine) suppository 25 mgJump to med 25 mg, Rectal, Every 12 hours PRN, nausea, vomiting, Starting on 05/14/23 at 1734, Phase II/On Unit, 2nd Line. Give CA if patient is unable to take orally or receive by injection. If inadequate response within 60 minutes, proceed to next-line agent for same PRN reason or contact provider if no further options ordered. INFORMATION SOURCE (unrecogn ized section and content) DATE CREATED AUTHOR 11/20/2024 [place] [facility] DATE CREATED AUTHOR AUTHOR'S ORGANIZ ATION 11/21/2024 [facility] FOR RECORDS PERTAINING TO PATIENTS WHO ARE OR HAVE BEEN ENROLLED IN A CHEMICAL DEPENDENCY/SUBSTANCEABUSE PROGRAM, SOME INFORMATION MAY BE OMITTED. This clinical summary was aggregated from multiple sources. Caution should be exercised in using it in the provision of clinical care. This summary normalizes information from multiple sources, and as a consequence, information in this document may materially change the coding, format and clinical context of patient data. In addition, data may be omitted in some cases. CLINICAL DECISIONS SHOULD BE BASED ON THE PRIMARY CLINICAL RECORDS. [employer] [facility]. provides no warranty or guarantee of the accuracy or completeness of information in this document.
[2024-12-08 10:09] LABS: Hematocrit 40.9 % (37-47); Hemoglobin 13.5 g/dL (12.0-15.0); Mean Corp Hgb Conc 33.0 g/dL (32-36); Mean Corpuscular Volume 92.1 fL (81-99); Mean Platelet Vol. 9.9 fl (6.2-12.0); Platelet Count 253 K/mm3 (150-450); RBC Distribution Width CV 12.4 % (11.6-14.6); RBC Distribution Width SD 42.0 fl (35.1-43.9); Red Blood Count 4.44 M/mm3 (4.2-5.4); White Blood Count 5.2 K/mm3 (4.4-11.0)
[2024-12-08 10:35] LABS: Ferritin 304 ng/mL (22-378); Iron 86 ug/dL (50-170); Iron Binding Capacity,Total 276 ug/dL (250-450); Iron Binding Capacity,Unsat 190 ug/dL (228-428)
== END | disposition home or self-care (01) ==
LOC: MTLAB 07:02
PROVIDERS: PCP Family Medicine; Referring Provider Family Medicine; Visit Provider Family Medicine
DX: R79.89 Other specified abnormal findings of blood chemistry (principal)
CPT/HCPCS: 36415; 82668; 82728; 83540; 83550; 85027

== ENCOUNTER → 2025-01-18 | Outpatient (CLI) | payer MEDICARE, OTHER, SELFPAY ==
--- NOTE | 2025-01-18 07:14 | BI_ITS ---
EXAM: SCRN MAMM (CAD)W/AZRA BILAT DATE: 01/18/2025 CLINICAL HISTORY: F, Age 74 y/o , SCREENING Sister with breast cancer. TECHNIQUE: Procedure Code: BISMWCADBTOM Modality: MG Procedure: SCRN MAMM (CAD)W/AZRA BILAT COMPARISON: Prior exam(s) dated November 26, 2022.. FINDINGS: TISSUE DENSITY: There are scattered areas of fibroglandular density. Bilateral Breast Mammographic Findings: No significant masses, calcifications or other abnormalities are identified. No suspicious masses, areas of developing architectural distortion, or suspicious calcifications. There has been no significant interval change. BI/SCRN MAMM (CAD)W/AZRA BILAT IMPRESSION: Stable bilateral screening mammogram. OVERALL FINAL ASSESSMENT BI-RADS 1: NEGATIVE. RECOMMENDATION: Routine annual follow-up in 1 Year Additional Recommendation none A letter with findings and recommendations will be mailed to the patient. Reading Location: [place] [address]
--- NOTE | 2025-01-18 07:14 | BI_ITS ---
EXAM: SCRN MAMM (CAD)W/AZRA BILAT DATE: 01/18/2025 CLINICAL HISTORY: F, Age 74 y/o , SCREENING Sister with breast cancer. TECHNIQUE: Procedure Code: BISMWCADBTOM Modality: MG Procedure: SCRN MAMM (CAD)W/AZRA BILAT COMPARISON: Prior exam(s) dated November 26, 2022.. FINDINGS: TISSUE DENSITY: There are scattered areas of fibroglandular density. Bilateral Breast Mammographic Findings: No significant masses, calcifications or other abnormalities are identified. No suspicious masses, areas of developing architectural distortion, or suspicious calcifications. There has been no significant interval change. BI/SCRN MAMM (CAD)W/AZRA BILAT IMPRESSION: Stable bilateral screening mammogram. OVERALL FINAL ASSESSMENT BI-RADS 1: NEGATIVE. RECOMMENDATION: Routine annual follow-up in 1 Year Additional Recommendation none A letter with findings and recommendations will be mailed to the patient. Reading Location: [place] [address]
== END | disposition home or self-care (01) ==
LOC: OPBI 07:13
PROVIDERS: PCP Family Medicine; Referring Provider Family Medicine; Visit Provider Family Medicine
DX: Z12.31 Encounter for screening mammogram for malignant neoplasm of breast (principal)
CPT/HCPCS: 77063; 77067